=== PATIENT | female | born 1930 | race Caucasian/White ===

== ENCOUNTER 2017-01-31 18:10 | Inpatient (IN) | payer OTHER ==
[~2017-01-31] VITALS: Ht 154.9 cm; Wt 59.8 kg
[~2017-01-31 18:10] MED LIST: ACET-1311 PO; ALL300 PO; AMT24 PO; CLTP PO; DOCU1TAB6 PO; FERR325T5 PO; FLV1 PO; GLIP2.5T11 PO; LEVO75TA PO; METFTAB PO; MULT-513 PO; OMEG10007 PO; PRLSR20 PO; ROSU5TAB PO; TRIA1SPR4; [UNRECOGNIZED DRUG - OTHER] OPB
--- NOTE | 2017-01-31 18:44 | EMERGENCY ROOM VISIT NOTE ---
History Report prepared by Teddy: Ad Kwok Under the Supervision of: Dr. Juan Carlos Gonzalez D.O. First contact with patient: 18:27 Chief Complaint: REFERRED BY DOCTOR Stated Complaint: LIVER TROUBLE- SENT BY History of Present Illness The patient is an 86 year old female who was referred to the Emergency Room after having elevated LFTs earlier today. The patient was seeing Dr. Anne today when the elevated LFTs were found. She was started on Cipro and Flagyl today prior to the testing for possible diverticulitis. The patient has been experiencing left lower quadrant abdominal pain, abnormal bowel movements, and dark / brown urine for the past several weeks. She denies chest pain, shortness of breath, or pain with urination. She has appeared lethargic to her son. The patient has a history of bladder cancer in her 20s. She has a history of dementia. Source of History: patient, family (son) Onset: earlier today Position: other (global) Quality: other (elevated LFTs) Timing: other (acute) Associated Symptoms: + abdominal pain, + urinary symptoms (discolored, but no pain), No SOB, No chest pain Review of Systems See HPI for pertinent positives & negatives. A total of 10 systems reviewed and were otherwise negative. Past Medical & Surgical Medical Problems: (1) Acoustic neuroma (2) BENIGN HYPERTENSION (3) Cholangitis (4) DIAB ABIMBOLA WO COMP TYPE II OR NOS/NOT UNCONTROLLED (5) Diverticulitis (6) ESOPHAGEAL REFLUX (7) HYPERLIPIDEMIA NEC/NOS (8) HYPOTHYROIDISM NOS (9) MALIG KIAN BLADDER NOS (10) PURE HYPERCHOLESTEROLEM Family History Patient reports no known family medical history. Social History Smoking Status: Former Smoker Alcohol Use: none Drug Use: none Marital Status: Housing Status: lives with family Occupation Status: retired Current/Historical Medications Scheduled Allopurinol (Allopurinol), 300 MG PO QAM Atorvastatin (Lipitor), 80 MG PO DAILY Calcium/Vitamin D (Caltrate 600 Plus *), 1 TAB PO QPM Ciprofloxacin (Ciprofloxacin HCl), 500 MG PO Q12 Ferrous Sulfate (Ferrous Sulfate), 325 MG PO QAM Fish Oil ([place]-3), 1,000 MG PO QAM Folic Acid (Folic Acid), 1 MG PO QAM Levothyroxine Sodium (Synthroid), 75 MCG PO QAM Metformin Ext Rel (Glucophage Ext Rel), 500 MG PO BID Metoprolol Succinate (Metoprolol Succinate ER), 25 MG PO DAILY Metronidazole (Flagyl), 500 MG PO TID Multivitamins/Minerals (Mvi With Minerals), 1 TAB PO QAM Omeprazole (Prilosec), 20 MG PO BID Potassium Ext Rel (Klor-Con), 20 MEQ PO DAILY Scheduled PRN Acetaminophen (Tylenol), 650 MG PO BID PRN for Pain Allergies Coded Allergies: Mirtazapine (Verified Allergy, Mild, Increased Anxiety, 01/31/17) Oxycodone (Verified Adverse Reaction, Mild, GI SYMPTOMS, 01/31/17) Morphine (Verified Adverse Reaction, Unknown, NAUSEA, 01/31/17) Physical Exam Vital Signs Date Time Temp Pulse Resp B/P Pulse Ox O2 Delivery O2 Flow Rate FiO2 01/31/17 22:10 71 22 01/31/17 21:10 71 24 01/31/17 19:38 73 01/31/17 19:25 142/70 01/31/17 19:22 77 18 142/70 92 Room Air 01/31/17 18:19 36.4 91 18 106/63 96 Room Air Physical Exam GENERAL: Patient is awake, alert, and in no acute distress. Patient is resting comfortably and showing no signs of anxiety EYES: The conjunctivae are clear. The pupils are equal round and reactive to light. There appeared to be proptosis of the left eye but no pain with extraocular muscle testing. EARS, NOSE, MOUTH AND THROAT: The nose is without any evidence of any deformity. Mucous membranes are moist tongue is midline NECK: The neck is nontender and supple. RESPIRATORY: Normal respiratory effort is noted there is no evidence of wheezing rhonchi or rales CARDIOVASCULAR: Regular rate and rhythm noted there no murmurs rubs or gallops normal S1 normal S2 GASTROINTESTINAL: The abdomen moderately distended, diffusely tender, no specific guarding or rigidity noted. MUSCULOSKELETAL/EXTREMITIES: There is no evidence of gross deformity full range of motion is noted in the hips and shoulders SKIN: Cool and dry. Pedal edema was noted bilaterally. NEUROLOGIC: Patient is awake alert and oriented to person place and situation, strength was symmetric. Medical Decision & Procedures ER Provider Diagnostic Interpretation: Radiology results as stated below per my review and radiologist interpretation: CHEST ONE VIEW PORTABLE HISTORY: Generalized abdominal pain COMPARISON: Chest 12/31/2012. FINDINGS: The lungs are clear. Cardiac silhouette is normal in size. No pleural effusions. No pneumothorax. IMPRESSION: No acute process. Electronically signed by: Alan Hernandez M.D. 01/31/2017 7:18 PM Dictated Date/Time: 01/31/2017 7:17 PM ABDOMEN AND PELVIS CT WITH IV CONTRAST CT DOSE: 279.30 mGy.cm HISTORY: painless jaundice TECHNIQUE: Multiaxial CT images of the abdomen and pelvis were performed following the use of intravenous contrast. COMPARISON STUDY: Abdomen and pelvis CT 12/25/2012. FINDINGS: The lung bases are clear. No pneumoperitoneum. No pneumatosis. Moderate thickening of the stomach. An 8 mm hypodense lesion within the pancreatic head. Normal caliber common bile duct. The gallbladder appears surgically absent. No hepatic or splenic masses. Stable indeterminate 1.9 cm left adrenal nodule. Normal right adrenal gland. Bilateral renal hypodense lesions favor cysts. Bilateral nephrolithiasis. No hydronephrosis. The uterus is surgically absent. Left retroaortic renal vein. Question mild fat stranding/edema surrounding the extra hepatic bile ducts. Increase in size of a portacaval lymph node which measures 9 mm in short axis diameter, previous measuring 4 mm. Mild fat stranding adjacent to a single proximal sigmoid diverticulum. This is consistent with acute diverticulitis. This is best in image 329. No perforation or abscess. No evidence for bowel obstruction. IMPRESSION: 1. There are suggestion of mild fat stranding surrounding the extra hepatic bile ducts. However, the bile ducts are normal in caliber. This is nonspecific but could represent an ascending cholangitis. Clinical correlation recommended. 2. Mild acute sigmoid diverticulitis. No perforation or abscess. 3. Cholecystectomy. 4. Bilateral nephrolithiasis. No hydronephrosis. 5. Moderate thickening of the stomach. This could be due to underdistention. 6. An 8 mm hypodense lesion within the pancreatic head. 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 Electronically signed by: Alan Hernandez M.D. 01/31/2017 8:11 PM Dictated Date/Time: 01/31/2017 7:59 PM Laboratory Results Test 01/31/17 19:00 01/31/17 19:24 01/31/17 20:06 Immature Granulocyte % (Auto) 0.2 % White Blood Count 11.06 K/uL (4.8-10.8) Red Blood Count 3.72 M/uL (4.2-5.4) Hemoglobin 12.1 g/dL (12.0-16.0) Hematocrit 35.1 % (37-47) Mean Corpuscular Volume 94.4 fL (80-100) Mean Corpuscular Hemoglobin 32.5 pg (25-34) Mean Corpuscular Hemoglobin Concent 34.5 g/dl (32-36) Platelet Count 354 K/uL (130-400) Mean Platelet Volume 11.1 fL (7.4-10.4) Neutrophils (%) (Auto) 74.4 % Lymphocytes (%) (Auto) 14.6 % Monocytes (%) (Auto) 9.0 % Eosinophils (%) (Auto) 1.2 % Basophils (%) (Auto) 0.6 % Neutrophils # (Auto) 8.23 K/uL (1.4-6.5) Lymphocytes # (Auto) 1.62 K/uL (1.2-3.4) Monocytes # (Auto) 0.99 K/uL (0.11-0.59) Eosinophils # (Auto) 0.13 K/uL (0-0.5) Basophils # (Auto) 0.07 K/uL (0-0.2) Immature Granulocyte # (Auto) 0.02 K/uL (0.00-0.02) Creatine Kinase MB 1.2 ng/ml (0.5-3.6) Creatine Kinase MB Ratio (0-3.0) Troponin I < 0.015 ng/ml (0-0.045) Amylase Level 128 U/L (25-115) Lipase 1347 U/L (73-393) Bedside Hemoglobin 12.2 g/dl (12.0-16.0) Bedside Hematocrit 36 % (37-47) Bedside Sodium 139 mEq/L (135-144) Bedside Potassium 4.4 mEq/L (3.3-5.0) Bedside Chloride 104 mEq/L (101-112) Bedside Total CO2 23 mEq/l (24-31) Bedside Blood Urea Nitrogen 18 mg/dl (7-18) Bedside Creatinine 0.9 mg/dl (0.6-1.3) Bedside Glucose (other) 115 mg/dl (70-99) Bedside Ionized Calcium (Eliseo) 1.22 mmol/l (1.12-1.32) Prothrombin Time 11.7 SECONDS (9.0-12.0) Prothromb Time International Ratio 1.1 (0.9-1.1) Activated Partial Thromboplast Time 31.7 SECONDS (21.0-31.0) Partial Thromboplastin Ratio 1.2 Direct Bilirubin 2.3 mg/dl (0-0.2) Total Creatine Kinase 127 U/L (26-192) Laboratory results per my review. Medications Administered Medications (Trade) Dose Ordered Sig/Faith Route Start Time Stop Time Status Last Admin Dose Admin Piperacillin Sod/ Tazobactam Sod (Zosyn Iv) 3.375 gm NOW STAT IV 01/31/17 20:22 01/31/17 20:23 DC 01/31/17 20:34 3.375 GM ECG Indication: abdominal pain Rate (beats per minute): 74 Rhythm: normal sinus Findings: no acute ischemic change, no ectopy Comparison ECG Date: 28 January 2014 Change: no significant change ED Course 1834: The patient was evaluated in room A11b. A complete history and physical examination were performed. 2031: Zosyn 3.375 gm IV. 2042: Discussed the case with Dr. Benito, [facility]. The patient will be evaluated. Medical Decision Prior records/ancillary studies reviewed. Triage Nursing notes reviewed. Additional history obtained from son. The patient's history was concerning for abdominal pain. Differential diagnosis: Etiologies such as appendicitis, diverticulitis, PUD, biliary pathology, UTI, pancreatitis, obstruction, mesenteric ischemia, aortic pathology, infections, inflammatory bowel disease, renal colic, as well as others were entertained. The patient is an 86-year-old female who presented to the emergency department for evaluation of abdominal pain. The patient was seen by her primary care physician and sent for laboratory studies. The laboratory studies were abnormal she was sent to the emergency department. The patient was treated with IV antibiotics in the emergency department. This was for presumed ascending cholangitis. She was also found have signs of cholecystitis and a possible pancreatic mass. I discussed the patient's laboratory and radiographic studies with her and her family members. She was also discussed with the on-call [facility]ist. They've agreed to evaluate the patient in the emergency department for further management and disposition. Consults Time Called: 2034 Consulting Physician: [facility] Returned Call: [phone]: Discussed the case with [facility]. The patient will be evaluated. Impression Primary Impression: Jaundice Additional Impressions: Ascending cholangitis Pancreatic mass Abnormal liver function tests Diverticulitis Scribe Attestation The scribe's documentation has been prepared under my direction and personally reviewed by me in its entirety. I confirm that the note above accurately reflects all work, treatment, procedures, and medical decision making performed by me. Departure Information Dispostion Being Evaluated By Hospitalist Referrals Price Anne III, M.D. (PCP) Patient Instructions [facility] Problem Qualifiers
[2017-01-31] MEDS ORDERED: OPTIRAY 320 IV PRN (19:00)
--- NOTE | 2017-01-31 19:21 | DIAGNOSTIC IMAGING REPORT ---
CHEST ONE VIEW PORTABLE HISTORY: Generalized abdominal pain COMPARISON: Chest 12/31/2012. FINDINGS: The lungs are clear. Cardiac silhouette is normal in size. No pleural effusions. No pneumothorax. IMPRESSION: No acute process. Electronically signed by: lAan Hernandez M.D. 01/31/2017 7:18 PM Dictated Date/Time: 01/31/2017 7:17 PM
[2017-01-31 19:28] LABS: BASO % 0.6 %; BASO ABS # 0.07 K/uL (0-0.2); COMPLETE YES; EOS % 1.2 %; HEMATOCRIT 35.1 % (37-47); IG% 0.2 %; LYMPH % 14.6 %; LYMPH ABS # 1.62 K/uL (1.2-3.4); MEAN CELL VOLUME 94.4 fL (80-100); MEAN CORPUSCULAR HEMOGLOBIN 32.5 pg (25-34); MEAN CORPUSCULAR HGB CONC 34.5 g/dl (32-36); MEAN PLATELET VOLUME 11.1 fL (7.4-10.4); NEUT % 74.4 %; PLATELET COUNT 354 K/uL (130-400); RED BLOOD COUNT 3.72 M/uL (4.2-5.4); WHITE BLOOD COUNT 11.06 K/uL (4.8-10.8)
[2017-01-31 19:37] LABS: ISTAT CREATININE 0.9 mg/dl (0.6-1.3); ISTAT HEMOGLOBIN 12.2 g/dl (12.0-16.0); ISTAT IONIZED CALCIUM 1.22 mmol/l (1.12-1.32)
[2017-01-31 19:56] LABS: ALKALINE PHOSPHATASE 999 U/L (45-117); ALT/SGPT 497 U/L (12-78); AMYLASE 128 U/L (25-115); BLOOD UREA NITROGEN 14 mg/dl (7-18); BUN/CREATININE RATIO 12.1 (10-20); CALCIUM 9.3 mg/dl (8.5-10.1); CARBON DIOXIDE 22 mmol/L (21-32); CHLORIDE 107 mmol/L (98-107); GLUCOSE 112 mg/dl (70-99); SODIUM 138 mmol/L (136-145)
--- NOTE | 2017-01-31 20:14 | DIAGNOSTIC IMAGING REPORT ---
ABDOMEN AND PELVIS CT WITH IV CONTRAST CT DOSE: 279.30 mGy.cm HISTORY: painless jaundice TECHNIQUE: Multiaxial CT images of the abdomen and pelvis were performed following the use of intravenous contrast. COMPARISON STUDY: Abdomen and pelvis CT 12/25/2012. FINDINGS: The lung bases are clear. No pneumoperitoneum. No pneumatosis. Moderate thickening of the stomach. An 8 mm hypodense lesion within the pancreatic head. Normal caliber common bile duct. The gallbladder appears surgically absent. No hepatic or splenic masses. Stable indeterminate 1.9 cm left adrenal nodule. Normal right adrenal gland. Bilateral renal hypodense lesions favor cysts. Bilateral nephrolithiasis. No hydronephrosis. The uterus is surgically absent. Left retroaortic renal vein. Question mild fat stranding/edema surrounding the extra hepatic bile ducts. Increase in size of a portacaval lymph node which measures 9 mm in short axis diameter, previous measuring 4 mm. Mild fat stranding adjacent to a single proximal sigmoid diverticulum. This is consistent with acute diverticulitis. This is best in image 329. No perforation or abscess. No evidence for bowel obstruction. IMPRESSION: 1. There are suggestion of mild fat stranding surrounding the extra hepatic bile ducts. However, the bile ducts are normal in caliber. This is nonspecific but could represent an ascending cholangitis. Clinical correlation recommended. 2. Mild acute sigmoid diverticulitis. No perforation or abscess. 3. Cholecystectomy. 4. Bilateral nephrolithiasis. No hydronephrosis. 5. Moderate thickening of the stomach. This could be due to underdistention. 6. An 8 mm hypodense lesion within the pancreatic head. 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 Electronically signed by: Alan Hernandez M.D. 01/31/2017 8:11 PM Dictated Date/Time: 01/31/2017 7:59 PM
[2017-01-31] MEDS ORDERED: PIPERACILLIN/TAZOBACTAM 3.375 GM/100ML D5W IV STA (20:22)
[2017-01-31 20:26] LABS: INR 1.1 (0.9-1.1); PARTIAL THROMBOPLASTIN RATIO 1.2; PROTHROMBIN TIME (PATIENT) 11.7 SECONDS (9.0-12.0)
[2017-01-31 20:30] LABS: POTASSIUM 3.9 mmol/L (3.5-5.1)
[2017-01-31] MEDS ORDERED: TPRSR/25 PO (20:48)
[2017-01-31] MEDS ORDERED: LPT40 PO (20:48)
[2017-01-31] MEDS ORDERED: POTA20TA16 PO (20:48)
[2017-01-31] MEDS ORDERED: CYM20 PO (20:48)
[2017-01-31] MEDS ORDERED: ALL300 PO (20:52)
[2017-01-31] MEDS ORDERED: CLR10 PO (20:52)
[2017-01-31] MEDS ORDERED: METR-163 PO (20:56)
[2017-01-31] MEDS ORDERED: CPR/500 PO (20:56)
[2017-01-31] MEDS ORDERED: ATOR-26 PO (22:06)
[2017-01-31] MEDS ORDERED: ACETAMINOPHEN 325 MG TAB PO PRN (22:15)
[2017-01-31] MEDS ORDERED: GLUCAGON FOR INJ 1 MG VIAL SQ PRN (22:30)
[2017-01-31] MEDS ORDERED: DEXTROSE 50% 50 ML SYR IV PRN (22:30)
[2017-01-31] MEDS ORDERED: GLUCOSE 40% GEL 15 GM TUBE PO PRN (22:30)
[2017-01-31] MEDS ORDERED: GLUCOSE 10 TABS/TUBE PO PRN (22:30)
--- NOTE | 2017-01-31 23:01 | History and Physical ---
History & Physical Date & Time of Service: Jan 31, 2017 at 22:24 Chief Complaint: Liver Trouble- Sent By Primary Care Physician: Price Anne III, M.D. History of Present Illness Source: patient This is an 86 y/o female with PMHx of well-controlled DM2, CKD stage 3, Hypothyroidism, HTN, Dyslipidemia and other problems as outlined below who presents to the ED from Dr. Anne's office due to abnormal labs. Pt reports that for the past 2 months she has been experiencing constipation with mild generalized abd pain. Over the past month, the abdominal pain has become more constant and localized in the LLQ. She also noticed that her stool is a human resources leader brown and her urine is dark. She has not had a good appetite but has been tolerating food when she eats. Pt was seen by PCP (Dr. Anne) today. He started course of Cipro/Flagyl for suspected diverticulitis which patient took one dose of. Bloodwork was later found to be abnormal and patient was directed to the emergency room for further evaluation. Pt denies fever/chills, diaphoresis, chest pain, SOB, N/V, hematochezia, melena, bladder issues, LE edema ,calf pain , lightheadedness/dizziness. In the ED, vitals are stable. Pt is afebrile with leukocytosis >11k. Total bili 3.3. Direct bili 2.3. AST 613. ALT 497. Alk Phos 999. Lipase 1347. CT abd/pelvis + suggestive of ascending cholangitis and mild sigmoid diverticulitis. Pt is stable and will be admitted for further evaluation and treatment. Past Medical/Surgical History Medical Problems: (1) Acoustic neuroma Status: Chronic (2) BENIGN HYPERTENSION Status: Chronic (3) DIAB ABIMBOLA WO COMP TYPE II OR NOS/NOT UNCONTROLLED Status: Chronic (4) ESOPHAGEAL REFLUX Status: Chronic (5) HYPERLIPIDEMIA NEC/NOS Status: Chronic (6) HYPOTHYROIDISM NOS Status: Chronic (7) MALIG KIAN BLADDER NOS Status: Resolved (8) PURE HYPERCHOLESTEROLEM Status: Chronic Family History Patient reports no known family medical history. Social History Smoking Status: Former Smoker (35 pack year history; quit in 1970s) Alcohol Use: none Drug Use: none Marital Status: ( 3 months ago ) Housing status: lives with family (lives with son) Occupational Status: retired Immunizations History of Influenza Vaccine: Yes Influenza Vaccine Date: Oct 14, 2012 History of Tetanus Vaccine?: No Tetanus Immunization Date: Jul 19, 2007 History of Pneumococcal: No History of Hepatitis B Vaccine: No Multi-Drug Resistant Organisms History of MDRO: No Allergies Coded Allergies: Mirtazapine (Verified Allergy, Mild, Increased Anxiety, 01/31/17) Oxycodone (Verified Adverse Reaction, Mild, GI SYMPTOMS, 01/31/17) Morphine (Verified Adverse Reaction, Unknown, NAUSEA, 01/31/17) Home Medications Scheduled Allopurinol (Allopurinol), 300 MG PO QAM Atorvastatin (Lipitor), 80 MG PO DAILY Calcium/Vitamin D (Caltrate 600 Plus *), 1 TAB PO QPM Ciprofloxacin (Ciprofloxacin HCl), 500 MG PO Q12 Ferrous Sulfate (Ferrous Sulfate), 325 MG PO QAM Fish Oil ([place]-3), 1,000 MG PO QAM Folic Acid (Folic Acid), 1 MG PO QAM Levothyroxine Sodium (Synthroid), 75 MCG PO QAM Metformin Ext Rel (Glucophage Ext Rel), 500 MG PO BID Metoprolol Succinate (Metoprolol Succinate ER), 25 MG PO DAILY Metronidazole (Flagyl), 500 MG PO TID Multivitamins/Minerals (Mvi With Minerals), 1 TAB PO QAM Omeprazole (Prilosec), 20 MG PO BID Potassium Ext Rel (Klor-Con), 20 MEQ PO DAILY Scheduled PRN Acetaminophen (Tylenol), 650 MG PO BID PRN for Pain Review of Systems Constitutional: No chills, No fatigue, No fever, No sweats, No weakness Eyes: No worsening of vision ENT: No hearing loss Respiratory: No cough, No shortness of breath Cardiovascular: No chest pain, No claudication, No edema Abdomen: + constipation, + pain, No GI bleeding, No diarrhea, No nausea Musculoskeletal: No calf pain, No swelling Genitourinary - Female: + urinary frequency, No dysuria Neurologic: No weakness Psychiatric: No depression symptoms Endocrine: No fatigue Hematologic / Lymphatic: No abnormal bleeding/bruising Integumentary: No new/changing skin lesions Physical Exam Vital Signs Date Time Temp Pulse Resp B/P Pulse Ox O2 Delivery O2 Flow Rate FiO2 01/31/17 19:38 73 01/31/17 19:22 77 18 142/70 92 Room Air 01/31/17 18:19 36.4 91 18 106/63 96 Room Air General Appearance: WD/WN, no apparent distress, + pertinent finding (Pt is laying in bed with son at bedside ) Head: normocephalic, atraumatic Eyes: normal inspection ENT: hearing grossly normal Neck: supple Respiratory/Chest: chest non-tender, lungs clear, normal breath sounds, no respiratory distress Cardiovascular: regular rate, rhythm, no edema, no murmur Abdomen/GI: normal bowel sounds, soft, + tenderness (+LLQ; +mild RUQ ) Back: normal inspection Extremities/Musculoskelatal: normal inspection, no calf tenderness, no pedal edema Neurologic/Psych: alert, normal mood/affect, oriented x 3 Skin: warm/dry, + jaundice Diagnostics Laboratory Results Results Past 24 Hours Test 01/31/17 19:00 01/31/17 19:24 01/31/17 20:06 Range/Units White Blood Count 11.06 4.8-10.8 K/uL Red Blood Count 3.72 4.2-5.4 M/uL Hemoglobin 12.1 12.0-16.0 g/dL Hematocrit 35.1 37-47 % Mean Corpuscular Volume 94.4 80-100 fL Mean Corpuscular Hemoglobin 32.5 25-34 pg Mean Corpuscular Hemoglobin Concent 34.5 32-36 g/dl Platelet Count 354 130-400 K/uL Mean Platelet Volume 11.1 7.4-10.4 fL Neutrophils (%) (Auto) 74.4 % Lymphocytes (%) (Auto) 14.6 % Monocytes (%) (Auto) 9.0 % Eosinophils (%) (Auto) 1.2 % Basophils (%) (Auto) 0.6 % Neutrophils # (Auto) 8.23 1.4-6.5 K/uL Lymphocytes # (Auto) 1.62 1.2-3.4 K/uL Monocytes # (Auto) 0.99 0.11-0.59 K/uL Eosinophils # (Auto) 0.13 0-0.5 K/uL Basophils # (Auto) 0.07 0-0.2 K/uL RDW Standard Deviation 52.9 36.4-46.3 fL RDW Coefficient of Variation 15.5 11.5-14.5 % Immature Granulocyte % (Auto) 0.2 % Immature Granulocyte # (Auto) 0.02 0.00-0.02 K/uL Sodium Level 138 136-145 mmol/L Potassium Level 3.9 3.5-5.1 mmol/L Chloride Level 107 98-107 mmol/L Carbon Dioxide Level 22 21-32 mmol/L Anion Gap 9.0 18.0 16-25 mmol/L Blood Urea Nitrogen 14 7-18 mg/dl Creatinine 1.20 0.60-1.20 mg/dl Est Creatinine Clear Calc Drug Dose 27.0 ml/min Estimated GFR () 48.1 Estimated GFR (Non- 41.5 BUN/Creatinine Ratio 12.1 10-20 Random Glucose 112 70-99 mg/dl Calcium Level 9.3 8.5-10.1 mg/dl Total Bilirubin 3.3 0.2-1 mg/dl Direct Bilirubin 2.3 0-0.2 mg/dl Aspartate Amino Transf (AST/SGOT) 613 15-37 U/L Alanine Aminotransferase (ALT/SGPT) 497 12-78 U/L Alkaline Phosphatase 999 45-117 U/L Total Creatine Kinase 127 26-192 U/L Creatine Kinase MB 1.2 0.5-3.6 ng/ml Creatine Kinase MB Ratio 0-3.0 Troponin I < 0.015 0-0.045 ng/ml Total Protein 7.8 6.4-8.2 gm/dl Albumin 2.5 3.4-5.0 gm/dl Amylase Level 128 25-115 U/L Lipase 1347 73-393 U/L Bedside Hemoglobin 12.2 12.0-16.0 g/dl Bedside Hematocrit 36 37-47 % Bedside Sodium 139 135-144 mEq/L Bedside Potassium 4.4 3.3-5.0 mEq/L Bedside Chloride 104 101-112 mEq/L Bedside Total CO2 23 24-31 mEq/l Bedside Blood Urea Nitrogen 18 7-18 mg/dl Bedside Creatinine 0.9 0.6-1.3 mg/dl Bedside Glucose (other) 115 70-99 mg/dl Bedside Ionized Calcium (Eliseo) 1.22 1.12-1.32 mmol/l Prothrombin Time 11.7 9.0-12.0 SECONDS Prothromb Time International Ratio 1.1 0.9-1.1 Activated Partial Thromboplast Time 31.7 21.0-31.0 SECONDS Partial Thromboplastin Ratio 1.2 Diagnostic Radiology CXR IMPRESSION: No acute process. CT ABD/PELVIS IMPRESSION: 1. There are suggestion of mild fat stranding surrounding the extra hepatic bile ducts. However, the bile ducts are normal in caliber. This is nonspecific but could represent an ascending cholangitis. Clinical correlation recommended. 2. Mild acute sigmoid diverticulitis. No perforation or abscess. 3. Cholecystectomy. 4. Bilateral nephrolithiasis. No hydronephrosis. 5. Moderate thickening of the stomach. This could be due to underdistention. 6. An 8 mm hypodense lesion within the pancreatic head. 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 EKG EKG: NSR at 74 bpm with no acute ischemic changes; no change when compared to EKG from 01/28/14 Impression Assessment and Plan ABDOMINAL PAIN SECONDARY TO CHOLANGITIS VS. PANCREATITIS -admit to med/surg -pt is afebrile with leukocytosis >11k -CT abd/pelvis + evidence for ascending cholangitis -AST 613, ALT 497, direct bili 2.3, lipase 1347 -trend LFTs -start IVF and Zosyn -keep NPO except meds and ice chips -consult GI, Dr. Lester-pending input -monitor ACUTE DIVERTICULITIS -CT abd/pelvis + mild sigmoid diverticulitis. No evidence of abscess or perforation. -start IVF and Zosyn -keep NPO for now -monitor CKD STAGE 3 -creatinine at baseline around 1.0 -cont IVF -monitor with daily prp and avoid nephrotoxic agents when able WELL-CONTROLLED DM 2 -recent A1C 5.8 -hold metformin -start ISS -monitor BSG AC HS HYPOTHYROIDISM -cont levothyroxine HTN -BP stable -cont metoprolol -monitor DYSLIPIDEMIA -cont high-dose statin DVT PROPHYLAXIS -subq heparin CODE STATUS -DNR per discussion with patient upon admission DISPO Pt seen in collaboration with Dr. Patel. Please see her addendum for further details. Thanks! -Of note: patient seen in collaboration with Dr. Valentin russo tomorrow AM. I have seen and examined the patient and have discussed the case with the provider above. She is not ill-appearing, and seems to have had this LLQ pain now for two months. She recently buried her . I agree with the assessment and plan as stated. Jorge, DO Level of Care Med/Surg Resuscitation Status DO NOT RESUSCITATE VTE Prophylaxis VTE Risk Assessment Done? Y/N: Yes Risk Level: Moderate Given or contraindicated: Unfractionated heparin SQ
[2017-01-31 23:42] VITALS: BP 122/76; PULSE 70; TEMP 36.8; O2SAT 95; Ht 154.9 cm; Wt 59.8 kg
[2017-01-31] MEDS ORDERED: PIPERACILL/TAZOBAC CONSULT ACTIVE PRN (23:45)
[2017-01-31] MEDS: SODIUM CHLORIDE 0.9% 1000ML 1,000 ML IV SCH (23:45)
[2017-02-01] VITALS (7 sets, daily range): BP systolic 101–159; BP diastolic 65–88; PULSE 58–81; TEMP 36.6–36.9; O2SAT 91–97
[2017-02-01] MEDS: PIPERACILL/TAZOBAC IV 3.375 GM in DEXTROSE 5% 100ML 100 ML IV SCH ×3 (02:00→17:41)
[2017-02-01 06:06] LABS: HEMATOCRIT 33.9 % (37-47); MEAN CELL VOLUME 94.2 fL (80-100); MEAN CORPUSCULAR HEMOGLOBIN 31.7 pg (25-34); MEAN CORPUSCULAR HGB CONC 33.6 g/dl (32-36); MEAN PLATELET VOLUME 11.2 fL (7.4-10.4); PLATELET COUNT 331 K/uL (130-400); WHITE BLOOD COUNT 9.34 K/uL (4.8-10.8)
[2017-02-01] MEDS ORDERED: INSULIN ASPART 100 UNITS/ML 3 ML PEN SC SCH (06:30)
[2017-02-01] MEDS: LEVOTHYROXINE 75 MCG TAB PO SCH (06:46)
[2017-02-01 06:47] LABS: BUN/CREATININE RATIO 11.7 (10-20); CALCIUM 8.9 mg/dl (8.5-10.1); POTASSIUM 3.5 mmol/L (3.5-5.1)
[2017-02-01] MEDS: HEPARIN SOD 5000 UNIT/0.5 ML CARP SQ SCH ×3 (06:49→21:12)
[2017-02-01 06:52] LABS: ALB/GLOB RATIO 0.5 (0.9-2)
[2017-02-01] MEDS: PANTOprazole SOD 40 MG TAB PO SCH ×2 (07:44→21:12)
[2017-02-01] MEDS: OMEGA-3 (PURIFIED FISH OIL) 1 GM CAP PO SCH (07:44)
[2017-02-01] MEDS: FERROUS SULFATE 325 MG TAB PO SCH (07:44)
[2017-02-01] MEDS: ALLOPURINOL 300 MG TAB PO SCH (07:44)
[2017-02-01] MEDS: METOPROLOL SUCC 25MG EXT REL TAB PO SCH (07:45)
[2017-02-01] MEDS: CEROVITE ADV FORMULA TAB PO SCH (07:45)
[2017-02-01] MEDS: POTASSIUM CHLORIDE 20 MEQ TABCR PO SCH (07:45)
[2017-02-01] MEDS ORDERED: NURSING VERBAL MED ORDER ONE ×2 (07:45→18:30)
[2017-02-01] MEDS ORDERED: PNEUMOCOCCAL POLYSACCHARIDES 25 MCG/0.5 ML VIAL/SYR IM. ONE (08:00)
[2017-02-01] MEDS ORDERED: PNEUMOCOCCAL ADMINISTRATION CHARGE ONE (08:00)
[2017-02-01] MEDS ORDERED: ATORVASTATIN 40 MG TAB PO SCH (09:00)
--- NOTE | 2017-02-01 10:05 | Progress Note ---
Internal Med Progress Note Date of Service: Feb 01, 2017. Provider Documentation: SUBJECTIVE: Patient does have abdominal pain- left lower quadrant more than other quadrants No nausea, vomiting, but anorexia, loss of weight. Denies any fever, chills, specifically right sided abdominal pain. Mental status- at baseline OBJECTIVE: Vital Signs-as noted below Exam: General-AAOX2, no distress Eyes-Icterus + Asymmetric eye size Neck-No JVD Lungs-AEBE, no wheezing, rales Heart-S1, S2 normal, no murmurs Abdomen-Soft, tenderness in LLQ, RUQ, No rigidity, BS present Extremities-No edema Neuro-Grossly no focal deficits Lab data as noted below. Diagnostic Radiology CXR IMPRESSION: No acute process. CT ABD/PELVIS IMPRESSION: 1. There are suggestion of mild fat stranding surrounding the extra hepatic bile ducts. However, the bile ducts are normal in caliber. This is nonspecific but could represent an ascending cholangitis. Clinical correlation recommended. 2. Mild acute sigmoid diverticulitis. No perforation or abscess. 3. Cholecystectomy. 4. Bilateral nephrolithiasis. No hydronephrosis. 5. Moderate thickening of the stomach. This could be due to underdistention. 6. An 8 mm hypodense lesion within the pancreatic head. 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 EKG EKG: NSR at 74 bpm with no acute ischemic changes; no change when compared to EKG from 01/28/14 ASSESSMENT & PLAN: Assessment and Plan : OBSTRUCTIVE JAUNDICE: Patient presented to ED from PCP office for abnormal labs- obstructive jaundice patter- AST 613, ALT 497, TB 3.3, ALP 999, Direct bilirubin 2.3. Has hx of 2-4 months of abdominal pain, vaguely described as generalized, son who lives with her does not know about it, weight loss, anorexia, on and off nausea. -Afebrile, leucocytosis + mild, LFTs trending down -D/D Considered : Cholangitis as CT abd/pelvis - ? ascending cholangitis, however, no fever, RUQ tenderness but denies pain. No bile duct dilation noted. Need to rule out neoplasm as well -ERCP planned for today per GI discussion -NPO except meds/chips -IVF, IV Zosyn -GI on board ACUTE LEFT SIGMOID (MILD) DIVERTICULITIS -CT abd/pelvis + mild sigmoid diverticulitis. No evidence of abscess or perforation. -Afebrile, leucocytosis + mild -IVF and IV Zosyn -NPO with meds/chips CKD STAGE 3 -creatinine at baseline around 1.0 -cont IVF -monitor and avoid nephrotoxic agents when able WELL-CONTROLLED DM 2 -recent A1C 5.8 -hold metformin -start ISS -monitor BSG AC HS HYPOTHYROIDISM -cont levothyroxine HTN -BP stable -cont metoprolol -monitor DYSLIPIDEMIA -cont high-dose statin DVT PROPHYLAXIS -subq heparin CODE STATUS -DNR per discussion with patient upon admission DISPO Medical mx in progress Vital Signs: Date Time Temp Pulse Resp B/P Pulse Ox O2 Delivery O2 Flow Rate FiO2 02/01/17 08:11 36.8 58 16 116/67 96 Room Air 02/01/17 00:00 95 Room Air 01/31/17 23:42 36.8 70 16 122/76 95 Room Air 01/31/17 22:10 71 22 01/31/17 21:10 71 24 01/31/17 19:38 73 01/31/17 19:25 142/70 01/31/17 19:22 77 18 142/70 92 Room Air 01/31/17 18:19 36.4 91 18 106/63 96 Room Air Lab Results: Results Past 24 Hours Test 01/31/17 19:00 01/31/17 19:24 01/31/17 20:06 01/31/17 23:24 Range/Units White Blood Count 11.06 4.8-10.8 K/uL Red Blood Count 3.72 4.2-5.4 M/uL Hemoglobin 12.1 12.0-16.0 g/dL Hematocrit 35.1 37-47 % Mean Corpuscular Volume 94.4 80-100 fL Mean Corpuscular Hemoglobin 32.5 25-34 pg Mean Corpuscular Hemoglobin Concent 34.5 32-36 g/dl Platelet Count 354 130-400 K/uL Mean Platelet Volume 11.1 7.4-10.4 fL Neutrophils (%) (Auto) 74.4 % Lymphocytes (%) (Auto) 14.6 % Monocytes (%) (Auto) 9.0 % Eosinophils (%) (Auto) 1.2 % Basophils (%) (Auto) 0.6 % Neutrophils # (Auto) 8.23 1.4-6.5 K/uL Lymphocytes # (Auto) 1.62 1.2-3.4 K/uL Monocytes # (Auto) 0.99 0.11-0.59 K/uL Eosinophils # (Auto) 0.13 0-0.5 K/uL Basophils # (Auto) 0.07 0-0.2 K/uL RDW Standard Deviation 52.9 36.4-46.3 fL RDW Coefficient of Variation 15.5 11.5-14.5 % Immature Granulocyte % (Auto) 0.2 % Immature Granulocyte # (Auto) 0.02 0.00-0.02 K/uL Sodium Level 138 136-145 mmol/L Potassium Level 3.9 3.5-5.1 mmol/L Chloride Level 107 98-107 mmol/L Carbon Dioxide Level 22 21-32 mmol/L Anion Gap 9.0 18.0 16-25 mmol/L Blood Urea Nitrogen 14 7-18 mg/dl Creatinine 1.20 0.60-1.20 mg/dl Est Creatinine Clear Calc Drug Dose 27.0 ml/min Estimated GFR () 48.1 Estimated GFR (Non- 41.5 BUN/Creatinine Ratio 12.1 10-20 Random Glucose 112 70-99 mg/dl Calcium Level 9.3 8.5-10.1 mg/dl Total Bilirubin 3.3 0.2-1 mg/dl Direct Bilirubin 2.3 0-0.2 mg/dl Aspartate Amino Transf (AST/SGOT) 613 15-37 U/L Alanine Aminotransferase (ALT/SGPT) 497 12-78 U/L Alkaline Phosphatase 999 45-117 U/L Total Creatine Kinase 127 26-192 U/L Creatine Kinase MB 1.2 0.5-3.6 ng/ml Creatine Kinase MB Ratio 0-3.0 Troponin I < 0.015 0-0.045 ng/ml Total Protein 7.8 6.4-8.2 gm/dl Albumin 2.5 3.4-5.0 gm/dl Amylase Level 128 25-115 U/L Lipase 1347 73-393 U/L Bedside Hemoglobin 12.2 12.0-16.0 g/dl Bedside Hematocrit 36 37-47 % Bedside Sodium 139 135-144 mEq/L Bedside Potassium 4.4 3.3-5.0 mEq/L Bedside Chloride 104 101-112 mEq/L Bedside Total CO2 23 24-31 mEq/l Bedside Blood Urea Nitrogen 18 7-18 mg/dl Bedside Creatinine 0.9 0.6-1.3 mg/dl Bedside Glucose (other) 115 70-99 mg/dl Bedside Ionized Calcium (Eliseo) 1.22 1.12-1.32 mmol/l Prothrombin Time 11.7 9.0-12.0 SECONDS Prothromb Time International Ratio 1.1 0.9-1.1 Activated Partial Thromboplast Time 31.7 21.0-31.0 SECONDS Partial Thromboplastin Ratio 1.2 Bedside Glucose 85 70-90 mg/dl Test 02/01/17 05:09 02/01/17 06:04 Range/Units White Blood Count 9.34 4.8-10.8 K/uL Red Blood Count 3.60 4.2-5.4 M/uL Hemoglobin 11.4 12.0-16.0 g/dL Hematocrit 33.9 37-47 % Mean Corpuscular Volume 94.2 80-100 fL Mean Corpuscular Hemoglobin 31.7 25-34 pg Mean Corpuscular Hemoglobin Concent 33.6 32-36 g/dl RDW Standard Deviation 52.8 36.4-46.3 fL RDW Coefficient of Variation 15.3 11.5-14.5 % Platelet Count 331 130-400 K/uL Mean Platelet Volume 11.2 7.4-10.4 fL Sodium Level 140 136-145 mmol/L Potassium Level 3.5 3.5-5.1 mmol/L Chloride Level 107 98-107 mmol/L Carbon Dioxide Level 23 21-32 mmol/L Anion Gap 10.0 3-11 mmol/L Blood Urea Nitrogen 12 7-18 mg/dl Creatinine 1.00 0.60-1.20 mg/dl Est Creatinine Clear Calc Drug Dose 34.8 ml/min Estimated GFR () 59.9 Estimated GFR (Non- 51.7 BUN/Creatinine Ratio 11.7 10-20 Random Glucose 83 70-99 mg/dl Calcium Level 8.9 8.5-10.1 mg/dl Total Bilirubin 2.7 0.2-1 mg/dl Aspartate Amino Transf (AST/SGOT) 622 15-37 U/L Alanine Aminotransferase (ALT/SGPT) 460 12-78 U/L Alkaline Phosphatase 890 45-117 U/L Total Protein 7.2 6.4-8.2 gm/dl Albumin 2.3 3.4-5.0 gm/dl Globulin 4.9 2.5-4.0 gm/dl Albumin/Globulin Ratio 0.5 0.9-2 Bedside Glucose 80 70-90 mg/dl
[2017-02-01] MEDS ORDERED: INDOMETHACIN 50 MG SUPP PR SCH (10:15)
[2017-02-01] MEDS: INSULIN ASPART 100 UNITS/ML 3 ML PEN SC SCH ×3 (11:15→21:00)
[2017-02-01] MEDS: SODIUM CHLORIDE 0.9% 1000ML 1,000 ML IV SCH (11:48)
--- NOTE | 2017-02-01 12:32 | Gastrointestinal Consultation ---
Gastrointestinal Consultation Date of Consultation: Feb 01, 2017 Attending Physician: Erin Hanson Consulting Physician: Rell Boyd Reason for Consultation: Cholangitis, diverticulitis History of Present Illness Patient is a 86 year old female w PMHx of DM II, CKD III, hypothyroidism, HTN, dyslipidemia, GERD, hx of bladder ca who presented to ED referred by Dr. Anne due to leukocytosis and markedly elevated LFTs. She's been having abd pain mostly on LLQ for about 1 mnth. Stool had been area manager brown and urine darker in color. She also had lower appetite. Dr. Anne started her on Cipro/Flagyl for suspected diverticulitis, but then referred her when outpt labs were abnormal and concerning. Upon eval in ED, her labs showed WBC of 11, H/H 12/35, BMP unremarkable. LFTs elevated: Tbili 3.3, Dbili 2.3, AST 613, ALT 497, Alk phos 999, Lipase 1347. CXR normal. She had CT abd/pelvis which showed: 1. There are suggestion of mild fat stranding surrounding the extra hepatic bile ducts. However, the bile ducts are normal in caliber. This is nonspecific but could represent an ascending cholangitis. Clinical correlation recommended. 2. Mild acute sigmoid diverticulitis. No perforation or abscess. 3. Cholecystectomy. 4. Bilateral nephrolithiasis. No hydronephrosis. 5. Moderate thickening of the stomach. This could be due to underdistention. 6. An 8 mm hypodense lesion within the pancreatic head. 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 Past Medical/Surgical History Medical Problems: (1) Abnormal liver function tests Status: Acute (2) Ascending cholangitis Status: Acute (3) Jaundice Status: Acute (4) Pancreatic mass Status: Acute Past Medical History: See HPI above Past Surgical History: Tonsillectomy & Adenoidectomy Cholecystectomy Hemorrhoidectomy Hysterectomy R carpal tunnel Cataract surgery Family History Patient reports no known family medical history. Unrelated to current admission Social History Smoking Status: Former Smoker Alcohol Use: none Drug Use: none Marital Status: ( 3 months ago ) Housing Status: lives with family Occupation Status: retired Allergies Coded Allergies: Mirtazapine (Verified Allergy, Mild, Increased Anxiety, 01/31/17) Oxycodone (Verified Adverse Reaction, Mild, GI SYMPTOMS, 01/31/17) Morphine (Verified Adverse Reaction, Unknown, NAUSEA, 01/31/17) Current Medications Home Meds and Scripts Medications Dose Route/Sig Max Daily Dose Days Date Category Lipitor (Atorvastatin Calcium) 80 Mg Tab 80 Mg PO DAILY 01/31/17 Reported Ciprofloxacin HCl (Ciprofloxacin) 500 Mg Tab 500 Mg PO Q12 01/31/17 Reported Flagyl (Metronidazole) 500 Mg Tab 500 Mg PO TID 01/31/17 Reported Allopurinol 300 Mg Tab 300 Mg PO QAM 01/31/17 Reported Metoprolol Succinate ER (Metoprolol Succinate) 25 Mg Tabcr 25 Mg PO DAILY 01/31/17 Reported Klor-Con (Potassium Chloride) 20 Meq Tabcr 20 Meq PO DAILY 01/31/17 Reported Mvi With Minerals (Multivitamins/Minerals) Tab 1 Tab PO QAM 12/22/15 Reported Glucophage Ext Rel (Metformin HCl) 500 Mg Tab 500 Mg PO BID 12/22/15 Reported Tylenol (Acetaminophen) 325 Mg Tab 650 Mg PO BID PRN 12/24/14 Reported Folic Acid 1 Mg Tab 1 Mg PO QAM 12/24/14 Reported Prilosec (Omeprazole) 20 Mg Capcr 20 Mg PO BID 12/24/12 Reported Ferrous Sulfate 325 Mg Tab 325 Mg PO QAM 12/24/12 Reported Synthroid (Levothyroxine Sodium) 75 Mcg Tab 75 Mcg PO QAM 12/24/12 Reported [place]-3 (Fish Oil) 1 Ea Cap 1,000 Mg PO QAM 01/05/09 Reported Caltrate 600 Plus * (Calcium/Vitamin D) Tab 1 Tab PO QPM 01/05/09 Reported Review of Systems Constitutional: No chills, No fever Respiratory: No cough, No shortness of breath Cardiac: No chest pain Abdomen: + acolic stools, + constipation, + dark urine, + nausea, + pain, + see HPI, No GI bleeding, No vomiting Skin: No itch, No jaundice, No rash Physical Exam Date Time Temp Pulse Resp B/P Pulse Ox O2 Delivery O2 Flow Rate FiO2 02/01/17 08:11 36.8 58 16 116/67 96 Room Air 02/01/17 08:00 95 Room Air 02/01/17 00:00 95 Room Air 01/31/17 23:42 36.8 70 16 122/76 95 Room Air 01/31/17 22:10 71 22 01/31/17 21:10 71 24 01/31/17 19:38 73 01/31/17 19:25 142/70 01/31/17 19:22 77 18 142/70 92 Room Air 01/31/17 18:19 36.4 91 18 106/63 96 Room Air General Appearance: no apparent distress, + thin Eyes: normal inspection, PERRL, EOMI Neck: supple, no JVD, trachea midline Respiratory/Chest: no respiratory distress, no accessory muscle use, + decreased breath sounds Cardiovascular: regular rate, rhythm, no gallop, no murmur Abdomen: normal bowel sounds, soft, + tenderness (RUQ, LLQ) Extremities: normal inspection, no pedal edema, no calf tenderness Neurologic/Psych: alert, normal mood/affect, oriented x 3 Skin: normal color, no jaundice, no rash Laboratory Results Last 24 Hours Test 01/31/17 19:00 01/31/17 19:24 01/31/17 20:06 01/31/17 23:24 White Blood Count 11.06 K/uL Red Blood Count 3.72 M/uL Hemoglobin 12.1 g/dL Hematocrit 35.1 % Mean Corpuscular Volume 94.4 fL Mean Corpuscular Hemoglobin 32.5 pg Mean Corpuscular Hemoglobin Concent 34.5 g/dl Platelet Count 354 K/uL Mean Platelet Volume 11.1 fL Neutrophils (%) (Auto) 74.4 % Lymphocytes (%) (Auto) 14.6 % Monocytes (%) (Auto) 9.0 % Eosinophils (%) (Auto) 1.2 % Basophils (%) (Auto) 0.6 % Neutrophils # (Auto) 8.23 K/uL Lymphocytes # (Auto) 1.62 K/uL Monocytes # (Auto) 0.99 K/uL Eosinophils # (Auto) 0.13 K/uL Basophils # (Auto) 0.07 K/uL RDW Standard Deviation 52.9 fL RDW Coefficient of Variation 15.5 % Immature Granulocyte % (Auto) 0.2 % Immature Granulocyte # (Auto) 0.02 K/uL Sodium Level 138 mmol/L Potassium Level mmol/L 3.9 mmol/L Chloride Level 107 mmol/L Carbon Dioxide Level 22 mmol/L Anion Gap 9.0 mmol/L 18.0 mmol/L Blood Urea Nitrogen 14 mg/dl Creatinine 1.20 mg/dl Est Creatinine Clear Calc Drug Dose 27.0 ml/min Estimated GFR () 48.1 Estimated GFR (Non- 41.5 BUN/Creatinine Ratio 12.1 Random Glucose 112 mg/dl Calcium Level 9.3 mg/dl Total Bilirubin 3.3 mg/dl Direct Bilirubin mg/dl 2.3 mg/dl Aspartate Amino Transf (AST/SGOT) U/L 613 U/L Alanine Aminotransferase (ALT/SGPT) 497 U/L Alkaline Phosphatase 999 U/L Total Creatine Kinase U/L 127 U/L Creatine Kinase MB 1.2 ng/ml Creatine Kinase MB Ratio Troponin I < 0.015 ng/ml Total Protein 7.8 gm/dl Albumin 2.5 gm/dl Amylase Level 128 U/L Lipase 1347 U/L Bedside Hemoglobin 12.2 g/dl Bedside Hematocrit 36 % Bedside Sodium 139 mEq/L Bedside Potassium 4.4 mEq/L Bedside Chloride 104 mEq/L Bedside Total CO2 23 mEq/l Bedside Blood Urea Nitrogen 18 mg/dl Bedside Creatinine 0.9 mg/dl Bedside Glucose (other) 115 mg/dl Bedside Ionized Calcium (Eliseo) 1.22 mmol/l Prothrombin Time 11.7 SECONDS Prothromb Time International Ratio 1.1 Activated Partial Thromboplast Time 31.7 SECONDS Partial Thromboplastin Ratio 1.2 Bedside Glucose 85 mg/dl Test 02/01/17 05:09 02/01/17 06:04 02/01/17 11:08 White Blood Count 9.34 K/uL Red Blood Count 3.60 M/uL Hemoglobin 11.4 g/dL Hematocrit 33.9 % Mean Corpuscular Volume 94.2 fL Mean Corpuscular Hemoglobin 31.7 pg Mean Corpuscular Hemoglobin Concent 33.6 g/dl RDW Standard Deviation 52.8 fL RDW Coefficient of Variation 15.3 % Platelet Count 331 K/uL Mean Platelet Volume 11.2 fL Sodium Level 140 mmol/L Potassium Level 3.5 mmol/L Chloride Level 107 mmol/L Carbon Dioxide Level 23 mmol/L Anion Gap 10.0 mmol/L Blood Urea Nitrogen 12 mg/dl Creatinine 1.00 mg/dl Est Creatinine Clear Calc Drug Dose 34.8 ml/min Estimated GFR () 59.9 Estimated GFR (Non- 51.7 BUN/Creatinine Ratio 11.7 Random Glucose 83 mg/dl Calcium Level 8.9 mg/dl Total Bilirubin 2.7 mg/dl Aspartate Amino Transf (AST/SGOT) 622 U/L Alanine Aminotransferase (ALT/SGPT) 460 U/L Alkaline Phosphatase 890 U/L Total Protein 7.2 gm/dl Albumin 2.3 gm/dl Globulin 4.9 gm/dl Albumin/Globulin Ratio 0.5 Bedside Glucose 80 mg/dl 87 mg/dl Impression Patient is a 86 year old female w s/s of abd pain mostly on LLQ, nausea, leukocytosis and markedly elevated LFTs. CT abd/pelvis evidences of ascending cholangitis and sigmoid diverticulitis. She had been started on Zosyn antibx, and afebrile overnight. She is s/p lap cholecystectomy Plan - Continue Zosyn IV - NPO for ERCP by Dr. aVnn this afternoon in OR - GI will give further recs after ERCP is completed - Monitor LFTs - Pt's son (Denis) has been notified of plans above. I have personally seen and examined the patient with JEFF Messina and . Her note reflects my exam and findings. I agree with her impression and plan. Given cholangitis picture, she will need an ERCP. Continue antibiotics. Rell Boyd M.D.
[2017-02-01] MEDS ORDERED: FENTANYL CITRATE INJ 50 MCG/1 ML 2 ML VIAL IV PRN (12:45)
[2017-02-01] MEDS ORDERED: ONDANSETRON INJ 2 MG/ML 2 ML VIAL IV PRN (12:45)
[2017-02-01] MEDS ORDERED: ATROPINE SULFATE 0.1 MG/ML 5ML SYR IV PRN (12:45)
[2017-02-01] MEDS ORDERED: EpHEDrine SULFATE INJ 50 MG/ML AMP IV PRN (12:45)
[2017-02-01] MEDS ORDERED: DEXAMETHASONE SOD INJ 4 MG/ML VIAL ONE (14:03)
[2017-02-01] MEDS ORDERED: LIDOCAINE HCL 2% 2 ML VIAL (20MG/ML) ONE (14:03)
[2017-02-01] MEDS ORDERED: SUCCINYLCHOLINE CHLORIDE 20 MG/ML 10 ML VIAL IV ONE (14:03)
[2017-02-01] MEDS ORDERED: PROPOFOL IV EMULSION 10 MG/ML 20 ML VIAL IV ONE (14:03)
[2017-02-01] MEDS ORDERED: ROCURONIUM BROMIDE 10 MG/ML 5 ML VIAL ONE (14:03)
[2017-02-01] MEDS ORDERED: ONDANSETRON INJ 2 MG/ML 2 ML VIAL ONE (14:03)
[2017-02-01] MEDS ORDERED: FENTANYL CITRATE INJ 50 MCG/1 ML 2 ML VIAL ONE (14:04)
--- NOTE | 2017-02-01 15:25 | History & Physical Bridge Note ---
H&P Re-Evaluation Bridge Note: I have examined the patient, reviewed the History & Physical and in the interval since the performance of the History & Physical I have noted the following changes of clinical significance. she presented with abdomianl pain, elevated liver enzymes and imaging questioning ascending cholangitis: No changes noted. We have discussed the risks of ERCP to include bleeding, infection, perforation, pain, pancreatitis and failed cannulation.
[2017-02-01] MEDS ORDERED: INDOMETHACIN 50 MG SUPP PR ONE ×2 (15:41→15:45)
--- NOTE | 2017-02-01 16:20 | GI REPORT ---
Procedure Date: 02/01/2017 3:34 PM Procedure: ERCP Indications: Suspected ascending cholangitis Medicines: General Anesthesia, Indocin 100 mg VT Complications: No immediate complications. Estimated blood loss: Minimal. Estimated Blood Loss: Estimated blood loss was minimal. Procedure: Pre-Anesthesia Assessment: - Prior to the procedure, a History and Physical was performed, and patient medications, allergies and sensitivities were reviewed. The patient's tolerance of previous anesthesia was reviewed. - The risks and benefits of the procedure and the sedation options and risks were discussed with the patient. All questions were answered and informed consent was obtained. - Patient identification and proposed procedure were verified prior to the procedure by the physician, the nurse and the nursing tech. The procedure was verified in the procedure room. - Pre-procedure physical examination revealed no contraindications to sedation. - ASA Grade Assessment: III - A patient with severe systemic disease. - After reviewing the risks and benefits, the patient was deemed in satisfactory condition to undergo the procedure. - The anesthesia plan was to use general anesthesia. - Immediately prior to administration of medications, the patient was re-assessed for adequacy to receive sedatives. - The heart rate, respiratory rate, oxygen saturations, blood pressure, adequacy of pulmonary ventilation, and response to care were monitored throughout the procedure. - The physical status of the patient was re-assessed after the procedure. After obtaining informed consent, the scope was passed under direct vision. Throughout the procedure, the patient's blood pressure, pulse, and oxygen saturations were monitored continuously. The SCOPE was introduced through the mouth, and advanced to the duodenum and used to inject contrast into the bile duct and ventral pancreatic duct. The ERCP was accomplished without difficulty. The patient tolerated the procedure well. Findings: A low vision therapist film of the abdomen was obtained. Surgical clips, consistent with previous cholecystectomy, were seen in the area of the right upper quadrant of the abdomen. The esophagus was successfully intubated under direct vision without detailed examination of the pharynx, larynx, and associated structures, and upper GI tract. The upper GI tract was grossly normal. The ventral pancreatic duct was inadvertently cannulated with the short-nosed traction sphincterotome (Omni 35) and 0.035 in Acrobat guidewire without any complications. The wire was left in place to aid in biliary cannulation. The bile duct was then deeply cannulated with the short-nosed traction sphincterotome (Omni 35) and 0.035 in Acrobat guidewire. Contrast was injected. I personally interpreted the bile duct images. Contrast extended to the entire biliary tree. The biliary orifice was stenotic. This appeared benign. The middle third of the main bile duct contained filling defect(s) thought to be a stone and sludge. Biliary sphincterotomy was made with a monofilament short-tip traction sphincterotome using ERBE electrocautery. There was no post-sphincterotomy bleeding. To discover objects, the biliary tree was swept with a 8.5 mm balloon to 15 mm balloon starting at the bifurcation. Sludge and some pus was swept from the duct. One 5 Fr by 5 cm pancreatic stent with a full external pigtail and no internal flaps was placed 5 cm into the ventral pancreatic duct (prophylaxis). Clear fluid flowed through the stent(s). The stent was in good position. One 10 Fr by 7 cm biliary stent with a single external flap and a single internal flap was placed 7 cm into the common bile duct. Bile flowed through the stent. The stent was in good position. The total fluoroscopy exposure time was 1 minute and 50 seconds. The endoscope was withdrawn from the patient. Impression: - Biliary papillary stenosis, benign. - A sphincterotomy was performed. - The biliary tree was swept and sludge and pus were found. - One pancreatic stent was placed into the ventral pancreatic duct. - One biliary stent was placed into the CBD. Recommendation: - Avoid aspirin and nonsteroidal anti-inflammatory medicines for 1 week. - Clear liquid diet today. - Observe patient's clinical course following today's ERCP with therapeutic intervention. - Use broad spectrum antibiotics for 2 weeks. - Repeat ERCP in 6 weeks to remove stent. Elsa Vann D.O. Elsa Vann DO 02/01/2017 4:19:21 PM This report has been signed electronically. Note Initiated On: 02/01/2017 3:34 PM I attest to the content of the Intraoperative Record and orders documented therein, exceptions below
--- NOTE | 2017-02-01 16:22 | [facility] Post Operative Brief Note ---
Immediate Operative Summary Operative Date Feb 01, 2017. Pre-Operative Diagnosis Cholangitis Post-Operative Diagnosis Cholangitis Procedure(s) Performed ERCP Surgeon Dr. Vann Pipe Smoker Machine Operator Surgeon(s) None Estimated Blood Loss none Findings sludge and pus in CBD papillary stenosis 5 cm pancreatic stent placed 7 cm biliary stent placed. Specimens None Anesthesia Genteral Complication(s) None Disposition Recovery Room / PACU
--- NOTE | 2017-02-01 16:36 | DIAGNOSTIC IMAGING REPORT ---
ERCP BILIARY DUCTAL CLINICAL HISTORY: ERCP COMPARISON STUDY: None FLUOROSCOPY TIME: 1 minute 50 seconds. FINDINGS: Retrograde passage of a pancreatic as well as common duct stent. Balloon insufflation and sweeping of the common duct. Stent as residual. IMPRESSION: Sweeping of the common bile duct with stent placement Electronically signed by: Miguel Ibarra M.D. 02/01/2017 4:33 PM Dictated Date/Time: 02/01/2017 4:32 PM
--- NOTE | 2017-02-01 17:29 | Anesthesiology Progress Note ---
Anesthesia Post Op Note Date & Time Feb 01, 2017 at 17:28 Vital Signs Pain Intensity: 0 Vital Signs Past 12 Hours Date Time Temp Pulse Resp B/P Pulse Ox O2 Delivery O2 Flow Rate FiO2 02/01/17 17:27 36.6 81 18 159/88 91 Room Air 02/01/17 17:02 66 19 97 02/01/17 17:02 66 19 02/01/17 17:00 128/55 02/01/17 16:58 36.5 70 20 128/55 96 Nasal Cannula 2 02/01/17 16:57 67 22 95 02/01/17 16:57 67 22 02/01/17 16:56 69 20 02/01/17 16:56 70 20 96 02/01/17 16:55 125/53 02/01/17 16:51 67 20 02/01/17 16:51 67 20 97 02/01/17 16:50 124/58 02/01/17 16:50 124/58 02/01/17 16:49 66 21 02/01/17 16:49 66 21 02/01/17 16:49 66 21 100 02/01/17 16:49 66 21 100 02/01/17 16:47 128/76 02/01/17 16:47 128/76 02/01/17 16:44 14 02/01/17 16:44 14 02/01/17 16:44 61 14 02/01/17 16:44 61 14 02/01/17 16:40 121/61 02/01/17 16:40 121/61 02/01/17 16:39 67 13 100 02/01/17 16:39 66 13 02/01/17 16:39 66 13 02/01/17 16:39 67 13 100 02/01/17 16:35 127/58 02/01/17 16:35 127/58 02/01/17 16:34 71 19 02/01/17 16:34 69 19 100 02/01/17 16:34 71 19 02/01/17 16:34 69 19 100 02/01/17 16:33 112/55 02/01/17 16:33 112/55 02/01/17 16:29 36.2 70 19 112/55 99 Mask 10 02/01/17 16:29 69 24 02/01/17 16:29 69 24 99 02/01/17 16:29 69 24 99 02/01/17 16:29 69 24 02/01/17 15:16 36.8 80 16 130/52 95 Room Air 02/01/17 15:05 36.9 67 16 121/70 93 Room Air 02/01/17 08:11 36.8 58 16 116/67 96 Room Air 02/01/17 08:00 95 Room Air Notes Mental Status: alert / awake / arousable, participated in evaluation Pt Amnestic to Procedure: Yes Nausea / Vomiting: adequately controlled Pain: adequately controlled Airway Patency, RR, SpO2: stable & adequate BP & HR: stable & adequate Hydration State: stable & adequate Anesthetic Complications: no major complications apparent
[2017-02-01] MEDS: ONDANSETRON INJ 2 MG/ML 2 ML VIAL IV PRN (17:31)
[2017-02-01] MEDS: CALCIUM 600MG + VIT D 400 IU TAB PO SCH (21:00)
[2017-02-02] VITALS (9 sets, daily range): BP systolic 94–136; BP diastolic 56–76; PULSE 67–73; TEMP 36.4–36.8; O2SAT 91–98
[2017-02-02] MEDS: SODIUM CHLORIDE 0.9% 1000ML 1,000 ML IV SCH ×2 (00:24→13:00)
[2017-02-02] MEDS: PIPERACILL/TAZOBAC IV 3.375 GM in DEXTROSE 5% 100ML 100 ML IV SCH ×3 (02:05→16:53)
[2017-02-02] MEDS: LEVOTHYROXINE 75 MCG TAB PO SCH (05:55)
[2017-02-02] MEDS: HEPARIN SOD 5000 UNIT/0.5 ML CARP SQ SCH ×3 (05:56→21:03)
[2017-02-02] MEDS: INSULIN ASPART 100 UNITS/ML 3 ML PEN SC SCH ×4 (08:10→20:55)
--- NOTE | 2017-02-02 08:27 | Progress Note ---
Internal Med Progress Note Date of Service: Feb 02, 2017. Provider Documentation: SUBJECTIVE: Patient is feeling better today- Abdominal pain has improved. Says "feels gassy " Mild nausea, no vomiting, but anorexia, loss of weight. Denies any fever, chills, specifically right sided abdominal pain. Mental status- at baseline OBJECTIVE: Vital Signs-as noted below Exam: General-AAOX2, no distress Eyes-Icterus + Asymmetric eye size Neck-No JVD Lungs-AEBE, no wheezing, rales Heart-S1, S2 normal, no murmurs Abdomen-Soft, tenderness in LLQ, RUQ, No rigidity, BS present Extremities-No edema Lab data as noted below. Diagnostic Radiology CXR IMPRESSION: No acute process. CT ABD/PELVIS IMPRESSION: 1. There are suggestion of mild fat stranding surrounding the extra hepatic bile ducts. However, the bile ducts are normal in caliber. This is nonspecific but could represent an ascending cholangitis. Clinical correlation recommended. 2. Mild acute sigmoid diverticulitis. No perforation or abscess. 3. Cholecystectomy. 4. Bilateral nephrolithiasis. No hydronephrosis. 5. Moderate thickening of the stomach. This could be due to underdistention. 6. An 8 mm hypodense lesion within the pancreatic head. 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 EKG EKG: NSR at 74 bpm with no acute ischemic changes; no change when compared to EKG from 01/28/14 ASSESSMENT & PLAN: Assessment and Plan : CHOLANGITIS : Patient presented to ED from PCP office for abnormal labs- obstructive jaundice pattern- AST 613, ALT 497, TB 3.3, ALP 999, Direct bilirubin 2.3. Has hx of 2-4 months of abdominal pain, vaguely described as generalized, son who lives with her does not know about it, weight loss, anorexia, on and off nausea. -Afebrile, leucocytosis + mild, LFTs trending down -CT abd/pelvis - ? ascending cholangitis, however, no fever, RUQ tenderness +. No bile duct dilation noted. -S/P ERCP on 02/01/17- Biliary papillary stenosis, spinchterotomy performed, Bile duct swept with sludge and bile, Pancreatic duct- 1 stent placed, Bile duct - 1 stent placed. Plan is to remove stent in 6 weeks -Clear liquid diet, decrease IVF rate -IV Zosyn---> Continue broad spectrum antibiotic for 2 weeks per GI -Appreciate GI inputs ACUTE LEFT SIGMOID (MILD) DIVERTICULITIS -CT abd/pelvis + mild sigmoid diverticulitis. No evidence of abscess or perforation. -Afebrile, leucocytosis + mild -IVF and IV Zosyn -Advance diet as tolerated CKD STAGE 3 -creatinine at baseline around 1.0 -cont IVF -monitor and avoid nephrotoxic agents when able WELL-CONTROLLED DM 2 -recent A1C 5.8 -hold metformin -start ISS -monitor BSG AC HS HYPOTHYROIDISM -cont levothyroxine HTN -BP stable -cont metoprolol -monitor DYSLIPIDEMIA -Hold high-dose statin due to elevated LFTs DVT PROPHYLAXIS Heparin SQ CODE STATUS -DNR per discussion with patient upon admission DISPO Medical mx in progress PT/OT ordered Expected discharge home when stable Vital Signs: Date Time Temp Pulse Resp B/P Pulse Ox O2 Delivery O2 Flow Rate FiO2 02/02/17 07:41 92 Nasal Cannula 2.0 02/02/17 07:34 36.6 70 16 111/71 92 Nasal Cannula 2.0 02/02/17 04:55 36.4 73 16 97/63 97 Nasal Cannula 2.0 02/02/17 01:00 Nasal Cannula 2.0 02/01/17 22:53 36.7 77 16 101/65 95 Nasal Cannula 2.0 02/01/17 17:27 36.6 81 18 159/88 91 Room Air 02/01/17 17:20 97 Nasal Cannula 2.0 02/01/17 17:02 66 19 97 02/01/17 17:02 66 19 02/01/17 17:00 128/55 02/01/17 16:58 36.5 70 20 128/55 96 Nasal Cannula 2 02/01/17 16:57 67 22 95 02/01/17 16:57 67 22 02/01/17 16:56 69 20 02/01/17 16:56 70 20 96 02/01/17 16:55 125/53 02/01/17 16:51 67 20 02/01/17 16:51 67 20 97 02/01/17 16:50 124/58 02/01/17 16:50 124/58 02/01/17 16:49 66 21 02/01/17 16:49 66 21 02/01/17 16:49 66 21 100 02/01/17 16:49 66 21 100 02/01/17 16:47 128/76 02/01/17 16:47 128/76 02/01/17 16:44 14 02/01/17 16:44 14 02/01/17 16:44 61 14 02/01/17 16:44 61 14 02/01/17 16:40 121/61 02/01/17 16:40 121/61 02/01/17 16:39 67 13 100 02/01/17 16:39 66 13 02/01/17 16:39 66 13 02/01/17 16:39 67 13 100 02/01/17 16:35 127/58 02/01/17 16:35 127/58 02/01/17 16:34 71 19 02/01/17 16:34 69 19 100 02/01/17 16:34 71 19 02/01/17 16:34 69 19 100 02/01/17 16:33 112/55 02/01/17 16:33 112/55 02/01/17 16:29 36.2 70 19 112/55 99 Mask 10 02/01/17 16:29 69 24 02/01/17 16:29 69 24 99 02/01/17 16:29 69 24 99 02/01/17 16:29 69 24 02/01/17 15:16 36.8 80 16 130/52 95 Room Air 02/01/17 15:05 36.9 67 16 121/70 93 Room Air Lab Results: Results Past 24 Hours Test 02/01/17 11:08 02/01/17 17:30 02/01/17 19:06 02/02/17 07:30 Range/Units Bedside Glucose 87 99 147 102 70-90 mg/dl Test 02/02/17 08:08 Range/Units
[2017-02-02] MEDS: FERROUS SULFATE 325 MG TAB PO SCH (08:31)
[2017-02-02] MEDS: OMEGA-3 (PURIFIED FISH OIL) 1 GM CAP PO SCH (08:33)
[2017-02-02] MEDS: CEROVITE ADV FORMULA TAB PO SCH (08:33)
[2017-02-02] MEDS: PANTOprazole SOD 40 MG TAB PO SCH ×2 (08:34→20:56)
[2017-02-02] MEDS: METOPROLOL SUCC 25MG EXT REL TAB PO SCH (08:34)
[2017-02-02] MEDS: ALLOPURINOL 300 MG TAB PO SCH (08:35)
[2017-02-02 08:48] LABS: HEMATOCRIT 34.3 % (37-47); MEAN CELL VOLUME 94.5 fL (80-100); MEAN CORPUSCULAR HEMOGLOBIN 32.2 pg (25-34); MEAN CORPUSCULAR HGB CONC 34.1 g/dl (32-36); MEAN PLATELET VOLUME 10.7 fL (7.4-10.4); PLATELET COUNT 346 K/uL (130-400); RED BLOOD COUNT 3.63 M/uL (4.2-5.4); WHITE BLOOD COUNT 8.56 K/uL (4.8-10.8)
[2017-02-02 09:14] LABS: BUN/CREATININE RATIO 13.2 (10-20); CREATININE 1.1 mg/dl (0.60-1.20); POTASSIUM 3.7 mmol/L (3.5-5.1)
[2017-02-02 09:17] LABS: ALB/GLOB RATIO 0.5 (0.9-2)
[2017-02-02 09:19] LABS: CALCIUM 8.3 mg/dl (8.5-10.1)
[2017-02-02] MEDS: POTASSIUM CHLORIDE 20 MEQ TABCR PO SCH (09:46)
[2017-02-02] MEDS: CALCIUM 600MG + VIT D 400 IU TAB PO SCH (20:55)
[2017-02-02] MEDS: ONDANSETRON INJ 2 MG/ML 2 ML VIAL IV PRN (20:55)
[2017-02-03] MEDS: SODIUM CHLORIDE 0.9% 1000ML 1,000 ML IV SCH ×3 (01:25→22:12)
[2017-02-03] MEDS: PIPERACILL/TAZOBAC IV 3.375 GM in DEXTROSE 5% 100ML 100 ML IV SCH ×2 (01:26→10:00)
[2017-02-03] MEDS: LEVOTHYROXINE 75 MCG TAB PO SCH (05:38)
[2017-02-03] MEDS: HEPARIN SOD 5000 UNIT/0.5 ML CARP SQ SCH ×3 (05:40→22:00)
[2017-02-03 07:05] VITALS: BP 112/68; PULSE 63; TEMP 36.8; O2SAT 97
[2017-02-03 07:44] LABS: HEMATOCRIT 27.5 % (37-47); MEAN CELL VOLUME 93.9 fL (80-100); MEAN CORPUSCULAR HEMOGLOBIN 31.1 pg (25-34); MEAN CORPUSCULAR HGB CONC 33.1 g/dl (32-36); MEAN PLATELET VOLUME 10.7 fL (7.4-10.4); PLATELET COUNT 327 K/uL (130-400); RED BLOOD COUNT 2.93 M/uL (4.2-5.4); WHITE BLOOD COUNT 7.84 K/uL (4.8-10.8)
[2017-02-03] MEDS: FERROUS SULFATE 325 MG TAB PO SCH (07:50)
[2017-02-03] MEDS: POTASSIUM CHLORIDE 20 MEQ TABCR PO SCH (07:51)
[2017-02-03] MEDS: CEROVITE ADV FORMULA TAB PO SCH (07:51)
[2017-02-03] MEDS: PANTOprazole SOD 40 MG TAB PO SCH ×2 (07:51→22:12)
[2017-02-03] MEDS: OMEGA-3 (PURIFIED FISH OIL) 1 GM CAP PO SCH (07:51)
[2017-02-03] MEDS: METOPROLOL SUCC 25MG EXT REL TAB PO SCH (07:52)
[2017-02-03] MEDS: ALLOPURINOL 300 MG TAB PO SCH (07:52)
[2017-02-03 08:11] LABS: BUN/CREATININE RATIO 23.3 (10-20); CREATININE 0.92 mg/dl (0.60-1.20); POTASSIUM 4.1 mmol/L (3.5-5.1)
[2017-02-03 08:24] LABS: ALB/GLOB RATIO 0.5 (0.9-2)
[2017-02-03] MEDS: INSULIN ASPART 100 UNITS/ML 3 ML PEN SC SCH ×4 (08:30→21:58)
[2017-02-03 08:31] LABS: CALCIUM 7.8 mg/dl (8.5-10.1)
--- NOTE | 2017-02-03 08:41 | Progress Note ---
Internal Med Progress Note Date of Service: Feb 03, 2017. Provider Documentation: SUBJECTIVE: Patient is feeling worse today. Abdomen feels bloated- gas + , nauseous +, doesnt feel like eating. No BM No vomiting, but anorexia, loss of weight for few weeks-months. Denies any fever, chills. Mental status- at baseline, sitting in chair OBJECTIVE: Vital Signs-as noted below Exam: General-AAOX2, no distress Eyes-Icterus + Asymmetric eye size Neck-No JVD Lungs-AEBE, no wheezing, rales Heart-S1, S2 normal, no murmurs Abdomen-Soft, slight abdominal distension, tenderness in LLQ, RUQ, No rigidity, BS present Extremities-No edema Lab data as noted below. Diagnostic Radiology CXR IMPRESSION: No acute process. CT ABD/PELVIS IMPRESSION: 1. There are suggestion of mild fat stranding surrounding the extra hepatic bile ducts. However, the bile ducts are normal in caliber. This is nonspecific but could represent an ascending cholangitis. Clinical correlation recommended. 2. Mild acute sigmoid diverticulitis. No perforation or abscess. 3. Cholecystectomy. 4. Bilateral nephrolithiasis. No hydronephrosis. 5. Moderate thickening of the stomach. This could be due to underdistention. 6. An 8 mm hypodense lesion within the pancreatic head. 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 EKG EKG: NSR at 74 bpm with no acute ischemic changes; no change when compared to EKG from 01/28/14 ASSESSMENT & PLAN: Assessment and Plan : CHOLANGITIS : Patient presented to ED from PCP office for abnormal labs- obstructive jaundice pattern- AST 613, ALT 497, TB 3.3, ALP 999, Direct bilirubin 2.3. Has hx of 2-4 months of abdominal pain, vaguely described as generalized, son who lives with her does not know about it, weight loss, anorexia, on and off nausea. -Afebrile, leucocytosis resolved, LFTs slightly up today -CT abd/pelvis - ? ascending cholangitis, however, no fever, RUQ tenderness +. No bile duct dilation noted. -S/P ERCP on 02/01/17- Biliary papillary stenosis, spinchterotomy performed, Bile duct swept with sludge and bile, Pancreatic duct- 1 stent placed, Bile duct - 1 stent placed. Plan is to remove stent in 6 weeks -Clear liquid diet, Ok to discontinue IVF. -IV Zosyn---> Continue broad spectrum antibiotic for 2 weeks per GI -Appreciate GI inputs ACUTE LEFT SIGMOID (MILD) DIVERTICULITIS -CT abd/pelvis + mild sigmoid diverticulitis. No evidence of abscess or perforation. -Afebrile, leucocytosis + mild -IVF - IV Zosyn -Advance diet as tolerated CKD STAGE 3 -creatinine at baseline around 1.0 -monitor and avoid nephrotoxic agents when able WELL-CONTROLLED DM 2 -recent A1C 5.8 -hold metformin -start ISS -monitor BSG AC HS HYPOTHYROIDISM -cont levothyroxine HTN -BP stable -cont metoprolol -monitor DYSLIPIDEMIA -Hold high-dose statin due to elevated LFTs DVT PROPHYLAXIS Heparin SQ CODE STATUS -DNR per discussion with patient upon admission DISPO Medical mx in progress PT/OT ordered Expected discharge home when stable Vital Signs: Date Time Temp Pulse Resp B/P Pulse Ox O2 Delivery O2 Flow Rate FiO2 02/03/17 07:05 36.8 63 18 112/68 97 Room Air 02/03/17 00:01 Room Air 02/02/17 23:08 36.8 67 14 106/56 95 Room Air 02/02/17 19:30 Room Air 02/02/17 15:54 93 Room Air 02/02/17 15:50 36.7 71 20 94/57 91 Room Air 02/02/17 13:54 68 98 02/02/17 09:50 68 136/76 98 Room Air 02/02/17 08:47 98 Room Air Lab Results: Results Past 24 Hours Test 02/02/17 08:36 02/02/17 11:11 02/02/17 16:14 02/02/17 19:37 Range/Units White Blood Count 8.56 4.8-10.8 K/uL Red Blood Count 3.63 4.2-5.4 M/uL Hemoglobin 11.7 12.0-16.0 g/dL Hematocrit 34.3 37-47 % Mean Corpuscular Volume 94.5 80-100 fL Mean Corpuscular Hemoglobin 32.2 25-34 pg Mean Corpuscular Hemoglobin Concent 34.1 32-36 g/dl RDW Standard Deviation 53.5 36.4-46.3 fL RDW Coefficient of Variation 15.4 11.5-14.5 % Platelet Count 346 130-400 K/uL Mean Platelet Volume 10.7 7.4-10.4 fL Sodium Level 138 136-145 mmol/L Potassium Level 3.7 3.5-5.1 mmol/L Chloride Level 107 98-107 mmol/L Carbon Dioxide Level 20 21-32 mmol/L Anion Gap 11.0 3-11 mmol/L Blood Urea Nitrogen 15 7-18 mg/dl Creatinine 1.10 0.60-1.20 mg/dl Est Creatinine Clear Calc Drug Dose 31.6 ml/min Estimated GFR () 53.4 Estimated GFR (Non- 46.1 BUN/Creatinine Ratio 13.2 10-20 Random Glucose 143 70-99 mg/dl Calcium Level 8.3 8.5-10.1 mg/dl Total Bilirubin 2.7 0.2-1 mg/dl Aspartate Amino Transf (AST/SGOT) 569 15-37 U/L Alanine Aminotransferase (ALT/SGPT) 428 12-78 U/L Alkaline Phosphatase 842 45-117 U/L Total Protein 7.0 6.4-8.2 gm/dl Albumin 2.3 3.4-5.0 gm/dl Globulin 4.7 2.5-4.0 gm/dl Albumin/Globulin Ratio 0.5 0.9-2 Bedside Glucose 170 267 138 70-90 mg/dl Test 02/03/17 07:00 Range/Units White Blood Count 7.84 4.8-10.8 K/uL Red Blood Count 2.93 4.2-5.4 M/uL Hemoglobin 9.1 12.0-16.0 g/dL Hematocrit 27.5 37-47 % Mean Corpuscular Volume 93.9 80-100 fL Mean Corpuscular Hemoglobin 31.1 25-34 pg Mean Corpuscular Hemoglobin Concent 33.1 32-36 g/dl RDW Standard Deviation 54.5 36.4-46.3 fL RDW Coefficient of Variation 15.7 11.5-14.5 % Platelet Count 327 130-400 K/uL Mean Platelet Volume 10.7 7.4-10.4 fL Sodium Level 144 136-145 mmol/L Potassium Level 4.1 3.5-5.1 mmol/L Chloride Level 116 98-107 mmol/L Carbon Dioxide Level 20 21-32 mmol/L Anion Gap 8.0 3-11 mmol/L Blood Urea Nitrogen 21 7-18 mg/dl Creatinine 0.92 0.60-1.20 mg/dl Est Creatinine Clear Calc Drug Dose 37.8 ml/min Estimated GFR () 66.3 Estimated GFR (Non- 57.2 BUN/Creatinine Ratio 23.3 10-20 Random Glucose 95 70-99 mg/dl Calcium Level 7.8 8.5-10.1 mg/dl Total Bilirubin 3.4 0.2-1 mg/dl Aspartate Amino Transf (AST/SGOT) 633 15-37 U/L Alanine Aminotransferase (ALT/SGPT) 390 12-78 U/L Alkaline Phosphatase 848 45-117 U/L Total Protein 5.8 6.4-8.2 gm/dl Albumin 1.8 3.4-5.0 gm/dl Globulin 4.0 2.5-4.0 gm/dl Albumin/Globulin Ratio 0.5 0.9-2
[2017-02-03] MEDS ORDERED: BISACODYL 5 MG TABEC PO PRN (08:45)
[2017-02-03] MEDS ORDERED: TRAMADOL HCL 50 MG TAB PO PRN (08:45)
[2017-02-03] MEDS: DOCUSATE SODIUM 100 MG CAP PO SCH ×2 (10:00→21:57)
[2017-02-03] MEDS: POLYETHYLENE (MIRALAX) 17 GM PACK PO SCH (10:01)
--- NOTE | 2017-02-03 13:45 | DIAGNOSTIC IMAGING REPORT ---
KUB HISTORY: Generalized abdominal pain. r/o constipation COMPARISON: Abdomen and pelvis CT 01/31/2017. FINDINGS: The bowel gas pattern is unremarkable. There are no dilated loops of small bowel to suggest an obstruction. No renal calculi. No ureteral calculi. No pneumoperitoneum or pneumatosis. Common bile duct and main pancreatic duct stents are identified and appear to be in good position. Mild to moderate well-formed stool within the colon. The lung bases are clear. IMPRESSION: 1. No evidence for bowel obstruction. 2. Mild to moderate stool within the colon. 3. Common bile duct and main pancreatic duct stents are identified and likely in good position. Electronically signed by: Alan Hernandez M.D. 02/03/2017 1:43 PM Dictated Date/Time: 02/03/2017 1:41 PM
--- NOTE | 2017-02-03 14:27 | Progress Note ---
Progress Note Date of Service Feb 03, 2017. Progress Note Pt complains of bloating, diffuse abdominal pain worse in upper abdomen. She had BM x1, and denies sense of incomplete evacuation. She is not hungry. Date Time Temp Pulse Resp B/P Pulse Ox O2 Delivery O2 Flow Rate FiO2 02/03/17 08:00 Room Air 02/03/17 07:05 36.8 63 18 112/68 97 Room Air 02/03/17 00:01 Room Air 02/02/17 23:08 36.8 67 14 106/56 95 Room Air 02/02/17 19:30 Room Air 02/02/17 15:54 93 Room Air 02/02/17 15:50 36.7 71 20 94/57 91 Room Air Appears uncomfortable. Abd: Soft and ND. She is tender in epigastrium and RUQ and LLQ. No guarding or rebound. Last 24 Hours Test 02/02/17 16:14 02/02/17 19:37 02/03/17 07:00 02/03/17 07:18 Bedside Glucose 267 mg/dl 138 mg/dl 92 mg/dl White Blood Count 7.84 K/uL Red Blood Count 2.93 M/uL Hemoglobin 9.1 g/dL Hematocrit 27.5 % Mean Corpuscular Volume 93.9 fL Mean Corpuscular Hemoglobin 31.1 pg Mean Corpuscular Hemoglobin Concent 33.1 g/dl RDW Standard Deviation 54.5 fL RDW Coefficient of Variation 15.7 % Platelet Count 327 K/uL Mean Platelet Volume 10.7 fL Sodium Level 144 mmol/L Potassium Level 4.1 mmol/L Chloride Level 116 mmol/L Carbon Dioxide Level 20 mmol/L Anion Gap 8.0 mmol/L Blood Urea Nitrogen 21 mg/dl Creatinine 0.92 mg/dl Est Creatinine Clear Calc Drug Dose 37.8 ml/min Estimated GFR () 66.3 Estimated GFR (Non- 57.2 BUN/Creatinine Ratio 23.3 Random Glucose 95 mg/dl Calcium Level 7.8 mg/dl Total Bilirubin 3.4 mg/dl Aspartate Amino Transf (AST/SGOT) 633 U/L Alanine Aminotransferase (ALT/SGPT) 390 U/L Alkaline Phosphatase 848 U/L Total Protein 5.8 gm/dl Albumin 1.8 gm/dl Globulin 4.0 gm/dl Albumin/Globulin Ratio 0.5 Lipase 1647 U/L Test 02/03/17 11:18 Bedside Glucose 134 mg/dl A/P: DIverticulitis CHolangitis sp ERCP, biliary sphincterotomy, stent - I suspect that she her biliary stent may be obstructing her bile duct. D/w Dr. Vann - will request HIDA today to look for CBD patency, plan repeat ERCP and stent removal if HIDA abnormal or LFT's rise. - I have changed her abx from Zosyn to cipro/flagyl due to the unlikely possibility that her rising bili may be due to cholestatic hepatitis from Zosyn.
[2017-02-03] MEDS: METRONIDAZOLE / NSS 500 MG in PREMIXED NSS 100 ML IV SCH ×2 (15:00→22:11)
[2017-02-03 16:00] VITALS: O2SAT 97
--- NOTE | 2017-02-03 19:15 | DIAGNOSTIC IMAGING REPORT ---
NUCLEAR MEDICINE HEPATOBILIARY SCAN HISTORY: Check stents as increasing abdominal pain/ ERCp done on 02/01/17 COMPARISON: Abdomen and pelvis CT 01/31/2017. TECHNIQUE: Immediately following the intravenous administration of 5.4 mCi Tc-99m Choletec, dynamic anterior abdominal imaging was performed. FINDINGS: Uniform hepatic tracer accumulation is shown. However, radiotracer did not extend into the intrahepatic or extra hepatic bile ducts. Radiotracer remained within the liver at the 75 minute and 4 hour delay images. IMPRESSION: Radiotracer remained within the liver throughout the examination including the 4 hour delayed images. This could be due to underlying hepatic pathology/disease versus common bile duct obstruction. Electronically signed by: Alan Hernandez M.D. 02/03/2017 7:13 PM Dictated Date/Time: 02/03/2017 7:11 PM
[2017-02-03] MEDS: CIPROFLOXACIN / D5W 400 MG in PREMIXED IN D5W 200 ML IV SCH (21:57)
[2017-02-03] MEDS ORDERED: HYDROmorphone INJ 0.5 MG/0.5 ML SYR IV PRN (22:00)
[2017-02-03] MEDS: CALCIUM 600MG + VIT D 400 IU TAB PO SCH (22:12)
[2017-02-03 22:15] LABS: HEMATOCRIT 23.1 % (37-47)
[2017-02-03 22:29] LABS: CALCIUM 7.8 mg/dl (8.5-10.1)
--- NOTE | 2017-02-03 22:29 | DIAGNOSTIC IMAGING REPORT ---
CHEST ONE VIEW PORTABLE HISTORY: Short of breath. COMPARISON: Chest 01/31/2017. FINDINGS: The heart is normal in size. No pleural effusions. No pneumothorax. Patchy left basilar densities. Mild bibasilar interstitial thickening. This could be due to vascular crowding. IMPRESSION: Patchy left basilar densities and bibasilar interstitial thickening which could be due to the low lung volumes or a pneumonia. Recommend follow-up to ensure resolution. Electronically signed by: Alan Hernandez M.D. 02/03/2017 10:26 PM Dictated Date/Time: 02/03/2017 10:24 PM
[2017-02-03 22:31] LABS: BUN/CREATININE RATIO 22.6 (10-20); CREATININE 0.88 mg/dl (0.60-1.20); MAGNESIUM 1.7 mg/dl (1.8-2.4); POTASSIUM 3.9 mmol/L (3.5-5.1)
[2017-02-03 22:34] LABS: PARTIAL THROMBOPLASTIN RATIO 3.3
[2017-02-03 22:37] LABS: ALB/GLOB RATIO 0.5 (0.9-2)
[2017-02-03] MEDS ORDERED: MAGNESIUM SULFATE 1GM / D5W 1 GM in PREMIXED IN D5W 100 ML IV STA (22:45)
[2017-02-03 23:23] VITALS: BP 134/71; PULSE 78; TEMP 36.5; O2SAT 97
[2017-02-03] MEDS: SODIUM CHLORIDE 0.45% 1000ML 1,000 ML IV SCH (23:38)
[2017-02-03 23:58] LABS: INR 1.1 (0.9-1.1)
[2017-02-04] VITALS (16 sets, daily range): BP systolic 92–164; BP diastolic 55–79; PULSE 68–100; TEMP 36.3–37.1; O2SAT 97–100
[2017-02-04] MEDS ORDERED: OPTIRAY 320 IV PRN
[2017-02-04] MEDS: ONDANSETRON INJ 2 MG/ML 2 ML VIAL IV PRN ×2 (02:35→18:15)
[2017-02-04] MEDS: HEPARIN SOD 5000 UNIT/0.5 ML CARP SQ SCH (02:36)
--- NOTE | 2017-02-04 02:37 | Progress Note ---
Internal Med Progress Note Date of Service: Feb 04, 2017. Provider Documentation: Made aware by RN of blood tinged emesis in AM. px has been refusing to take PO PPI as per EMR. Hg stable in the 7s AP UGIB IV PPI BID for now ff HH, transfuse pRBC if Hg less than 7 may need PPI drip if w/ further bleeding and/or significant Hg drop hold Heparin SQ order for now (px refusing shots anyway) SCDs interim Vital Signs: Date Time Temp Pulse Resp B/P Pulse Ox O2 Delivery O2 Flow Rate FiO2 02/04/17 07:10 36.9 80 18 92/56 99 Nasal Cannula 2.0 02/04/17 00:01 Nasal Cannula 2.0 02/03/17 23:23 36.5 78 18 134/71 97 Nasal Cannula 2.0 02/03/17 16:00 97 Room Air 02/03/17 08:00 Room Air Lab Results: Results Past 24 Hours Test 02/03/17 11:18 02/03/17 16:51 02/03/17 19:47 02/03/17 22:05 Range/Units Bedside Glucose 134 110 147 70-90 mg/dl Hemoglobin 7.7 12.0-16.0 g/dL Hematocrit 23.1 37-47 % Prothrombin Time 12.0 9.0-12.0 SECONDS Prothromb Time International Ratio 1.1 0.9-1.1 Activated Partial Thromboplast Time 87.0 21.0-31.0 SECONDS Partial Thromboplastin Ratio 3.3 Sodium Level 146 136-145 mmol/L Potassium Level 3.9 3.5-5.1 mmol/L Chloride Level 115 98-107 mmol/L Carbon Dioxide Level 18 21-32 mmol/L Anion Gap 13.0 3-11 mmol/L Blood Urea Nitrogen 20 7-18 mg/dl Creatinine 0.88 0.60-1.20 mg/dl Est Creatinine Clear Calc Drug Dose 39.5 ml/min Estimated GFR () 69.9 Estimated GFR (Non- 60.3 BUN/Creatinine Ratio 22.6 10-20 Random Glucose 125 70-99 mg/dl Calcium Level 7.8 8.5-10.1 mg/dl Magnesium Level 1.7 1.8-2.4 mg/dl Total Bilirubin 4.3 0.2-1 mg/dl Aspartate Amino Transf (AST/SGOT) 614 15-37 U/L Alanine Aminotransferase (ALT/SGPT) 377 12-78 U/L Alkaline Phosphatase 866 45-117 U/L Troponin I 0.031 0-0.045 ng/ml Total Protein 5.6 6.4-8.2 gm/dl Albumin 1.9 3.4-5.0 gm/dl Globulin 3.7 2.5-4.0 gm/dl Albumin/Globulin Ratio 0.5 0.9-2 Lipase 1388 73-393 U/L Test 02/04/17 05:00 Range/Units White Blood Count 10.59 4.8-10.8 K/uL Red Blood Count 2.27 4.2-5.4 M/uL Hemoglobin 7.2 12.0-16.0 g/dL Hematocrit 21.5 37-47 % Mean Corpuscular Volume 94.7 80-100 fL Mean Corpuscular Hemoglobin 31.7 25-34 pg Mean Corpuscular Hemoglobin Concent 33.5 32-36 g/dl RDW Standard Deviation 55.0 36.4-46.3 fL RDW Coefficient of Variation 15.9 11.5-14.5 % Platelet Count 287 130-400 K/uL Mean Platelet Volume 10.8 7.4-10.4 fL Sodium Level 141 136-145 mmol/L Potassium Level 3.8 3.5-5.1 mmol/L Chloride Level 113 98-107 mmol/L Carbon Dioxide Level 20 21-32 mmol/L Anion Gap 8.0 3-11 mmol/L Blood Urea Nitrogen 14 7-18 mg/dl Creatinine 0.80 0.60-1.20 mg/dl Est Creatinine Clear Calc Drug Dose 43.5 ml/min Estimated GFR () 78.5 Estimated GFR (Non- 67.7 BUN/Creatinine Ratio 17.8 10-20 Random Glucose 144 70-99 mg/dl Calcium Level 7.4 8.5-10.1 mg/dl Magnesium Level 2.4 1.8-2.4 mg/dl Total Bilirubin 4.6 0.2-1 mg/dl Aspartate Amino Transf (AST/SGOT) 586 15-37 U/L Alanine Aminotransferase (ALT/SGPT) 371 12-78 U/L Alkaline Phosphatase 926 45-117 U/L Total Protein 5.5 6.4-8.2 gm/dl Albumin 1.9 3.4-5.0 gm/dl Globulin 3.6 2.5-4.0 gm/dl Albumin/Globulin Ratio 0.5 0.9-2
[2017-02-04] MEDS ORDERED: PANTOprazole INJ 80 MG in SYRINGE 0 ML IV STA (03:00)
[2017-02-04 06:01] LABS: HEMATOCRIT 21.5 % (37-47); MEAN CELL VOLUME 94.7 fL (80-100); MEAN CORPUSCULAR HEMOGLOBIN 31.7 pg (25-34); MEAN CORPUSCULAR HGB CONC 33.5 g/dl (32-36); MEAN PLATELET VOLUME 10.8 fL (7.4-10.4); PLATELET COUNT 287 K/uL (130-400); RED BLOOD COUNT 2.27 M/uL (4.2-5.4); WHITE BLOOD COUNT 10.59 K/uL (4.8-10.8)
[2017-02-04] MEDS: METRONIDAZOLE / NSS 500 MG in PREMIXED NSS 100 ML IV SCH ×2 (06:12→13:50)
[2017-02-04] MEDS: LEVOTHYROXINE 75 MCG TAB PO SCH (06:12)
[2017-02-04] MEDS: INSULIN ASPART 100 UNITS/ML 3 ML PEN SC SCH ×4 (06:30→21:00)
[2017-02-04 06:38] LABS: BUN/CREATININE RATIO 17.8 (10-20); CALCIUM 7.4 mg/dl (8.5-10.1); CREATININE 0.8 mg/dl (0.60-1.20); MAGNESIUM 2.4 mg/dl (1.8-2.4); POTASSIUM 3.8 mmol/L (3.5-5.1)
[2017-02-04 06:40] LABS: ALB/GLOB RATIO 0.5 (0.9-2)
--- NOTE | 2017-02-04 06:45 | DIAGNOSTIC IMAGING REPORT ---
CT ANGIOGRAM OF THE CHEST CLINICAL HISTORY: Chest pain and shortness of breath COMPARISON STUDY: Chest x-ray dated 02/03/2017 TECHNIQUE: Following the IV administration of 84 mL of [id number]-[id number], CT angiogram of the thorax was performed from the thoracic inlet to the lung bases utilizing the pulmonary embolus protocol. Images are reviewed in the axial, sagittal, and coronal planes. IV contrast was administered without complication. MIP imaging was performed. CT DOSE: 163.34 mGy.cm FINDINGS: No pathologically enlarged axillary mediastinal or hilar lymph nodes were visualized. There was no evidence of thoracic aortic dilatation. There were no pulmonary artery filling defects to indicate acute pulmonary embolism. No pleural effusions are visualized. There are bibasal atelectatic changes. There is no lobar consolidation. There are no airspace opacities suspicious for pneumonia. IMPRESSION: 1. No CT evidence of acute pulmonary embolism 2. Bibasilar atelectasis 3. No evidence of focal pulmonary consolidation Electronically signed by: Ankur Chu M.D. 02/04/2017 6:43 AM Dictated Date/Time: 02/04/2017 6:40 AM
--- NOTE | 2017-02-04 06:54 | Clinical Documentation Query ---
CLINICAL DOCUMENTATION QUERY Ignore. Query answered by GI parts consultant. IF IN AGREEMENT, YOU MUST DOCUMENT ABOVE DIAGNOSTIC STATEMENT IN DAILY PROGRESS NOTES AND DISCHARGE SUMMARY. This document is not part of the patient's record. Thank You, Orion Blake, RN [phone]
[2017-02-04] MEDS: FERROUS SULFATE 325 MG TAB PO SCH (08:24)
[2017-02-04] MEDS: DOCUSATE SODIUM 100 MG CAP PO SCH ×2 (08:24→21:00)
[2017-02-04] MEDS: POTASSIUM CHLORIDE 20 MEQ TABCR PO SCH (08:24)
[2017-02-04] MEDS: POLYETHYLENE (MIRALAX) 17 GM PACK PO SCH (08:24)
[2017-02-04] MEDS: METOPROLOL SUCC 25MG EXT REL TAB PO SCH (08:25)
[2017-02-04] MEDS: OMEGA-3 (PURIFIED FISH OIL) 1 GM CAP PO SCH (08:25)
[2017-02-04] MEDS: CEROVITE ADV FORMULA TAB PO SCH (08:25)
[2017-02-04] MEDS: ALLOPURINOL 300 MG TAB PO SCH (08:25)
[2017-02-04] MEDS: CIPROFLOXACIN / D5W 400 MG in PREMIXED IN D5W 200 ML IV SCH ×2 (08:26→21:13)
--- NOTE | 2017-02-04 09:03 | Progress Note ---
Internal Med Progress Note Date of Service: Feb 04, 2017. Provider Documentation: SUBJECTIVE: Patient clinically deteriorated today. Yellowish discoloration of skin more apparent today. Had episode of hematemesis -fresh red blood (mild) yesterday evening, loose / dark brown with fresh red blood BM today Had chest pain/sob overnight. Abdomen feels bloated gas + , pain in upper abdomen, nauseous +, doesn't feel like eating. No BM. No vomiting, but anorexia, loss of weight for few weeks-months. Denies any fever, chills. Mental status- at baseline OBJECTIVE: Vital Signs-as noted below Exam: General-AAOX2, mild distress due to pain Eyes-Icterus , Yellowish discoloration of pain ; + Asymmetric eye size Neck-No JVD Lungs-AEBE, no wheezing, rales Heart-S1, S2 normal, no murmurs Abdomen-Soft, slight abdominal distension, tenderness in LLQ, RUQ, No rigidity, BS present Extremities-No edema Lab data as noted below. Diagnostic Radiology CXR IMPRESSION: No acute process. CT ABD/PELVIS IMPRESSION: 1. There are suggestion of mild fat stranding surrounding the extra hepatic bile ducts. However, the bile ducts are normal in caliber. This is nonspecific but could represent an ascending cholangitis. Clinical correlation recommended. 2. Mild acute sigmoid diverticulitis. No perforation or abscess. 3. Cholecystectomy. 4. Bilateral nephrolithiasis. No hydronephrosis. 5. Moderate thickening of the stomach. This could be due to underdistention. 6. An 8 mm hypodense lesion within the pancreatic head. 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 EKG EKG: NSR at 74 bpm with no acute ischemic changes; no change when compared to EKG from 01/28/14 ASSESSMENT & PLAN: Assessment and Plan : CHOLANGITIS S/P STENT PLACEMENT: Clinically deteriorated today--> abdominal pain is worse, LFTs worsening. Concerned about Stent obstruction Patient presented to ED from PCP office for abnormal labs- obstructive jaundice pattern- AST 613, ALT 497, TB 3.3, ALP 999, Direct bilirubin 2.3. Has hx of 2-4 months of abdominal pain, vaguely described as generalized, son who lives with her does not know about it, weight loss, anorexia, on and off nausea. -S/P ERCP on 02/01/17- Biliary papillary stenosis, spinchterotomy performed, Bile duct swept with sludge and bile, Pancreatic duct- 1 stent placed, Bile duct - 1 stent placed. Plan was to remove stent in 6 weeks, but may need removal today if obstruction + -HIDA was done yesterday- showed stents in good position -CT abd/pelvis - ? ascending cholangitis, however, no fever, RUQ tenderness +. No bile duct dilation noted. -NPO, IVF -IV Zosyn x 2 ---> Changed to IV Cipro/Flagyl if at all zosyn induced cholestasis contributing to worsening LFTs. Per GI. -Appreciate GI inputs PLAN: May need ERCP for stent removal due to clinical deterioration, worsening LFTs and concern for possible obstruction in stent. Discussed with GI. ACUTE LEFT SIGMOID (MILD) DIVERTICULITIS WITH BLEEDING: Had dark brown, loose BM with fresh red blood today, Mild hematemesis -fresh red blood yesterday. -CT abd/pelvis on admission + mild sigmoid diverticulitis. No evidence of abscess or perforation. May need to repeat CT abd/pelvis -Afebrile, leucocytosis resolved -IVF; NPO as above -IV Antibiotics- Zosyn x 2 days ---> Changed to IV Cipro/Flagyl as above per GI ACUTE BLOOD LOSS ANEMIA -Hb down to 7.2 from 9.1 yesterday due to GI bleeding as above. Likely diverticular bleeding -Will transfuse 2 units of PRBCs today -IV Protonix 40 mg BID -Monitor H & H S/P CHEST PAIN/SOB Likely related to above, less likely to be cardiac, anxiety due to current medical issues contributing -Had an episode of chest pain/SOB yesterday night -CT chest was done- no acute abnormalities noted -EKG- no sig ischemic changes, Troponin x 1 negative. Will follow up next one. CKD STAGE 3 -creatinine at baseline around 1.0 -monitor and avoid nephrotoxic agents when able WELL-CONTROLLED DM 2 -recent A1C 5.8 -hold metformin -start ISS -monitor BSG AC HS HYPOTHYROIDISM -cont levothyroxine HTN -BP stable -cont metoprolol -monitor DYSLIPIDEMIA -Hold high-dose statin due to elevated LFTs PAIN CONTROL -Allergic to morphine/Oxycodone -IV Dilaudid 0.5 mg q 6 hours prn tolerating it, but using it much DVT PROPHYLAXIS Heparin SQ - hold due to bleeding. SCDS/TEDS CODE STATUS -DNR per discussion with patient upon admission DISPO Medical mx in progress- PT/OT to be done prior to discharge. Expected discharge home when stable- lives with son Discussed with AYLA Roman. Vital Signs: Date Time Temp Pulse Resp B/P Pulse Ox O2 Delivery O2 Flow Rate FiO2 02/04/17 07:10 36.9 80 18 92/56 99 Nasal Cannula 2.0 02/04/17 00:01 Nasal Cannula 2.0 02/03/17 23:23 36.5 78 18 134/71 97 Nasal Cannula 2.0 02/03/17 16:00 97 Room Air Lab Results: Results Past 24 Hours Test 02/03/17 11:18 02/03/17 16:51 02/03/17 19:47 02/03/17 22:05 Range/Units Bedside Glucose 134 110 147 70-90 mg/dl Hemoglobin 7.7 12.0-16.0 g/dL Hematocrit 23.1 37-47 % Prothrombin Time 12.0 9.0-12.0 SECONDS Prothromb Time International Ratio 1.1 0.9-1.1 Activated Partial Thromboplast Time 87.0 21.0-31.0 SECONDS Partial Thromboplastin Ratio 3.3 Sodium Level 146 136-145 mmol/L Potassium Level 3.9 3.5-5.1 mmol/L Chloride Level 115 98-107 mmol/L Carbon Dioxide Level 18 21-32 mmol/L Anion Gap 13.0 3-11 mmol/L Blood Urea Nitrogen 20 7-18 mg/dl Creatinine 0.88 0.60-1.20 mg/dl Est Creatinine Clear Calc Drug Dose 39.5 ml/min Estimated GFR () 69.9 Estimated GFR (Non- 60.3 BUN/Creatinine Ratio 22.6 10-20 Random Glucose 125 70-99 mg/dl Calcium Level 7.8 8.5-10.1 mg/dl Magnesium Level 1.7 1.8-2.4 mg/dl Total Bilirubin 4.3 0.2-1 mg/dl Aspartate Amino Transf (AST/SGOT) 614 15-37 U/L Alanine Aminotransferase (ALT/SGPT) 377 12-78 U/L Alkaline Phosphatase 866 45-117 U/L Troponin I 0.031 0-0.045 ng/ml Total Protein 5.6 6.4-8.2 gm/dl Albumin 1.9 3.4-5.0 gm/dl Globulin 3.7 2.5-4.0 gm/dl Albumin/Globulin Ratio 0.5 0.9-2 Lipase 1388 73-393 U/L Test 02/04/17 05:00 02/04/17 07:41 Range/Units White Blood Count 10.59 4.8-10.8 K/uL Red Blood Count 2.27 4.2-5.4 M/uL Hemoglobin 7.2 12.0-16.0 g/dL Hematocrit 21.5 37-47 % Mean Corpuscular Volume 94.7 80-100 fL Mean Corpuscular Hemoglobin 31.7 25-34 pg Mean Corpuscular Hemoglobin Concent 33.5 32-36 g/dl RDW Standard Deviation 55.0 36.4-46.3 fL RDW Coefficient of Variation 15.9 11.5-14.5 % Platelet Count 287 130-400 K/uL Mean Platelet Volume 10.8 7.4-10.4 fL Sodium Level 141 136-145 mmol/L Potassium Level 3.8 3.5-5.1 mmol/L Chloride Level 113 98-107 mmol/L Carbon Dioxide Level 20 21-32 mmol/L Anion Gap 8.0 3-11 mmol/L Blood Urea Nitrogen 14 7-18 mg/dl Creatinine 0.80 0.60-1.20 mg/dl Est Creatinine Clear Calc Drug Dose 43.5 ml/min Estimated GFR () 78.5 Estimated GFR (Non- 67.7 BUN/Creatinine Ratio 17.8 10-20 Random Glucose 144 70-99 mg/dl Calcium Level 7.4 8.5-10.1 mg/dl Magnesium Level 2.4 1.8-2.4 mg/dl Total Bilirubin 4.6 0.2-1 mg/dl Aspartate Amino Transf (AST/SGOT) 586 15-37 U/L Alanine Aminotransferase (ALT/SGPT) 371 12-78 U/L Alkaline Phosphatase 926 45-117 U/L Total Protein 5.5 6.4-8.2 gm/dl Albumin 1.9 3.4-5.0 gm/dl Globulin 3.6 2.5-4.0 gm/dl Albumin/Globulin Ratio 0.5 0.9-2 Bedside Glucose 123 70-90 mg/dl
[2017-02-04] MEDS ORDERED: INDOMETHACIN 50 MG SUPP PR SCH (10:00)
[2017-02-04] MEDS ORDERED: ERYTHROMYCIN IV 250 MG in SODIUM CHLORIDE 0.9% 250ML 250 ML IV SCH (10:30)
--- NOTE | 2017-02-04 10:44 | Gastroenterology Progress Note ---
Progress Note Date of Service: Feb 04, 2017 Subjective Pt evaluation today including: conversation w/ patient, physical exam, chart review, lab review, review of studies, review of inpatient medication list Pt c/o bloating and gas pressure on upper abd areas. Some nausea and vomiting - noted small amt of emesis w blood; dark cassandra watery stools this AM as well. Hgb down to 7 from 11 at admission Review of Systems Constitutional: No chills, No fever Respiratory: No cough, No shortness of breath Abdomen: + GI bleeding, + diarrhea, + nausea, + pain, + see HPI, + vomiting Medications Current Inpatient Medications Medications (Trade) Dose Ordered Sig/Faith Route Start Time Stop Time Status Last Admin Dose Admin Ioversol (Optiray 320) 100 ml UD PRN IV 01/31/17 19:00 02/04/17 18:59 Heparin Sodium (Porcine) (Heparin Sq 5000 Unit/0.5ml) 5,000 unit Q8H SQ 02/01/17 06:00 03/03/17 05:59 Future Hold 02/03/17 13:48 5,000 UNIT Ondansetron HCl (Zofran Inj) 4 mg Q6H PRN IV 01/31/17 22:15 03/02/17 22:14 02/04/17 02:35 4 MG Glucose (Glucose 40% Gel) 15-30 GRAMS 15 GRAMS... UD PRN PO 01/31/17 22:30 03/02/17 22:29 Glucose (Glucose Chew Tab) 4-8 Tablets 4 Tabl... UD PRN PO 01/31/17 22:30 03/02/17 22:29 Dextrose (Dextrose 50% 50ML Syringe) 25-50ML OF 50% DW IV FOR... UD PRN IV 01/31/17 22:30 03/02/17 22:29 Glucagon (Glucagon Inj) 1 mg UD PRN SQ 01/31/17 22:30 03/02/17 22:29 Allopurinol (Zyloprim Tab) 300 mg QAM PO 02/01/17 09:00 03/03/17 08:59 02/03/17 07:52 300 MG Atorvastatin Calcium (Lipitor Tab) 80 mg DAILY PO 02/01/17 09:00 03/03/17 08:59 Future Hold 02/01/17 07:45 80 MG Calcium/Vitamin D (Caltrate Plus Tab) 1 tab QPM PO 02/01/17 21:00 03/03/17 20:59 Ferrous Sulfate (Feosol Tab) 325 mg QAM PO 02/01/17 09:00 03/03/17 08:59 02/03/17 07:50 325 MG Fish Oil ([place]-3 (Purified Fish Oil) Cap) 1 gm QAM PO 02/01/17 09:00 03/03/17 08:59 02/03/17 07:51 1 GM Folic Acid (Folvite Tab) 1 mg QAM PO 02/01/17 09:00 03/03/17 08:59 02/03/17 07:50 1 MG Levothyroxine Sodium (Synthroid Tab) 75 mcg DAILYBB PO 02/01/17 06:30 03/03/17 06:59 02/04/17 06:12 75 MCG Metoprolol Succinate (Toprol Xl Tab) 25 mg DAILY PO 02/01/17 09:00 03/03/17 08:59 02/03/17 07:52 25 MG Multivitamins/ Minerals (Multivitamin W/ Minerals Tab) 1 tab QAM PO 02/01/17 09:00 03/03/17 08:59 02/03/17 07:51 1 TAB Potassium Chloride (Klor-Con Tab) 20 meq DAILY PO 02/01/17 09:00 03/03/17 08:59 02/03/17 07:51 20 MEQ Insulin Aspart (novoLOG ASPART) SLIDING SCALE If C... ACHS SC 02/01/17 21:00 03/03/17 20:59 02/02/17 17:09 3 UNITS Tramadol HCl (Ultram Tab) 50 mg Q4H PRN PO 02/03/17 08:45 03/05/17 08:44 02/03/17 21:56 50 MG Docusate Sodium (coLACE CAP) 100 mg BID PO 02/03/17 09:00 03/05/17 08:59 02/03/17 10:00 100 MG Polyethylene (Miralax Powder Packet) 17 gm DAILY PO 02/03/17 09:00 03/05/17 08:59 02/03/17 10:01 17 GM Bisacodyl 5 mg 5 mg BID PRN PO 02/03/17 08:45 03/05/17 08:44 Ciprofloxacin/ Dextrose 400 mg/ Prmx 200 ml @ 100 mls/hr Q12 IV 02/03/17 21:00 02/13/17 20:59 02/04/17 08:26 100 MLS/HR Metronidazole/Prmx (Flagyl / Nss/ Premixed Nss) 100 ml @ 100 mls/hr Q8H IV 02/03/17 14:30 02/13/17 14:29 02/04/17 06:12 100 MLS/HR Hydromorphone HCl 0.5 mg 0.5 mg Q6H PRN IV 02/03/17 22:00 02/17/17 21:59 Sodium Chloride (1/2 Nss 1000ml) 1,000 ml @ 80 mls/hr [id number] IV 02/03/17 22:45 03/05/17 22:44 02/03/17 23:38 80 MLS/HR Ioversol 100 ml 100 ml UD PRN IV 02/04/17 00:00 02/08/17 00:00 Pantoprazole Sodium/Syringe (Protonix Inj/ Syringe) 10 ml @ 5 mls/min BID IV 02/04/17 21:00 03/06/17 20:59 Indomethacin 100 mg 100 mg TODAY@1000 [place] 02/04/17 10:00 02/04/17 18:00 Erythromycin Lactobionate/ Sodium Chloride (Erythrocin IV/ Nss 250ml) 255 ml @ 250 mls/hr 1030 IV 02/04/17 10:30 02/04/17 14:00 Objective Vital Signs Date Time Temp Pulse Resp B/P Pulse Ox O2 Delivery O2 Flow Rate FiO2 02/04/17 10:10 36.6 100 16 123/77 99 2.0 02/04/17 09:55 37.0 72 16 98/60 99 2.0 02/04/17 09:38 36.3 75 18 93/56 99 02/04/17 08:00 Nasal Cannula 2.0 02/04/17 07:10 36.9 80 18 92/56 99 Nasal Cannula 2.0 02/04/17 00:01 Nasal Cannula 2.0 02/03/17 23:23 36.5 78 18 134/71 97 Nasal Cannula 2.0 02/03/17 16:00 97 Room Air Physical Exam General Appearance: + mild distress Eyes: normal inspection, PERRL, EOMI Neck: supple, no JVD, trachea midline Respiratory/Chest: normal breath sounds, no respiratory distress, no accessory muscle use Cardiovascular: regular rate, rhythm, no gallop, no murmur Abdomen: soft, + tenderness (LLQ, upper quadrants ) Extremities: normal inspection, no pedal edema, no calf tenderness Neurologic/Psych: alert, normal mood/affect, oriented x 3 Skin: + jaundice Laboratory Results Last 24 Hours Test 02/03/17 11:18 02/03/17 16:51 02/03/17 19:47 02/03/17 22:05 Bedside Glucose 134 mg/dl 110 mg/dl 147 mg/dl Hemoglobin 7.7 g/dL Hematocrit 23.1 % Prothrombin Time 12.0 SECONDS Prothromb Time International Ratio 1.1 Activated Partial Thromboplast Time 87.0 SECONDS Partial Thromboplastin Ratio 3.3 Sodium Level 146 mmol/L Potassium Level 3.9 mmol/L Chloride Level 115 mmol/L Carbon Dioxide Level 18 mmol/L Anion Gap 13.0 mmol/L Blood Urea Nitrogen 20 mg/dl Creatinine 0.88 mg/dl Est Creatinine Clear Calc Drug Dose 39.5 ml/min Estimated GFR () 69.9 Estimated GFR (Non- 60.3 BUN/Creatinine Ratio 22.6 Random Glucose 125 mg/dl Calcium Level 7.8 mg/dl Magnesium Level 1.7 mg/dl Total Bilirubin 4.3 mg/dl Aspartate Amino Transf (AST/SGOT) 614 U/L Alanine Aminotransferase (ALT/SGPT) 377 U/L Alkaline Phosphatase 866 U/L Troponin I 0.031 ng/ml Total Protein 5.6 gm/dl Albumin 1.9 gm/dl Globulin 3.7 gm/dl Albumin/Globulin Ratio 0.5 Lipase 1388 U/L Test 02/04/17 05:00 02/04/17 07:41 White Blood Count 10.59 K/uL Red Blood Count 2.27 M/uL Hemoglobin 7.2 g/dL Hematocrit 21.5 % Mean Corpuscular Volume 94.7 fL Mean Corpuscular Hemoglobin 31.7 pg Mean Corpuscular Hemoglobin Concent 33.5 g/dl RDW Standard Deviation 55.0 fL RDW Coefficient of Variation 15.9 % Platelet Count 287 K/uL Mean Platelet Volume 10.8 fL Sodium Level 141 mmol/L Potassium Level 3.8 mmol/L Chloride Level 113 mmol/L Carbon Dioxide Level 20 mmol/L Anion Gap 8.0 mmol/L Blood Urea Nitrogen 14 mg/dl Creatinine 0.80 mg/dl Est Creatinine Clear Calc Drug Dose 43.5 ml/min Estimated GFR () 78.5 Estimated GFR (Non- 67.7 BUN/Creatinine Ratio 17.8 Random Glucose 144 mg/dl Calcium Level 7.4 mg/dl Magnesium Level 2.4 mg/dl Total Bilirubin 4.6 mg/dl Aspartate Amino Transf (AST/SGOT) 586 U/L Alanine Aminotransferase (ALT/SGPT) 371 U/L Alkaline Phosphatase 926 U/L Troponin I 0.029 ng/ml Total Protein 5.5 gm/dl Albumin 1.9 gm/dl Globulin 3.6 gm/dl Albumin/Globulin Ratio 0.5 Bedside Glucose 123 mg/dl Assessment and Plan Pt is 86 y/o pt admitted w diverticulitis and cholangitis. She underwent ERCP on 02/01/17 - LFTs not improving, HIDA showed no tracer flowing through. Her Hgb also down from 11 to 7, and she had episodes of bloody emesis w dark blood in stools. Discussed w Dr. Vann - suspects she may have post sphincterectomy bleeding and clot obstructing her biliary stent - Continue current antibx - Monitor H/H. Spoke w hospitalist and will give pt blood transfusion - NPO for repeat ERCP w biliary stent removal by Dr. Vann this afternoon. Indomethacin for premed ordered. Pls administer Erythromycin 250mg IV x 1 to clear stomach of blood. I saw and evaluated the patient - she appears to have early stent occlusion and likely a post-sphincterotomy bleed based on the recent changes. I have discussed the risks of ERCP and EGD to include bleeding, infection, perforation , pain, infection, and need for follow-up studies. Plan ERCP / EGD today (will likely change the stent and treat the sphincterotomy site ) avoid nsaids if possible continue a 2 week course of antibiotics.
[2017-02-04] MEDS: SODIUM CHLORIDE 0.45% 1000ML 1,000 ML IV SCH (10:50)
[2017-02-04 15:01] LABS: HEMATOCRIT 25.7 % (37-47); MEAN CELL VOLUME 91.1 fL (80-100); MEAN CORPUSCULAR HEMOGLOBIN 31.2 pg (25-34); MEAN PLATELET VOLUME 10.5 fL (7.4-10.4); PLATELET COUNT 245 K/uL (130-400); RED BLOOD COUNT 2.82 M/uL (4.2-5.4); WHITE BLOOD COUNT 8.25 K/uL (4.8-10.8)
[2017-02-04 15:04] LABS: MEAN CORPUSCULAR HGB CONC 34.2 g/dl (32-36)
[2017-02-04] MEDS ORDERED: FENTANYL CITRATE INJ 50 MCG/1 ML 2 ML VIAL ONE (15:50)
[2017-02-04] MEDS ORDERED: ONDANSETRON INJ 2 MG/ML 2 ML VIAL ONE (16:24)
[2017-02-04] MEDS ORDERED: PROPOFOL IV EMULSION 10 MG/ML 20 ML VIAL IV ONE (16:24)
[2017-02-04] MEDS ORDERED: LIDOCAINE HCL 2% 2 ML VIAL (20MG/ML) ONE (16:24)
[2017-02-04] MEDS ORDERED: SUCCINYLCHOLINE CHLORIDE 20 MG/ML 10 ML VIAL IV ONE (16:24)
[2017-02-04] MEDS ORDERED: FENTANYL CITRATE INJ 50 MCG/1 ML 2 ML VIAL IV PRN (16:30)
[2017-02-04] MEDS ORDERED: ONDANSETRON INJ 2 MG/ML 2 ML VIAL IV PRN (16:30)
[2017-02-04] MEDS ORDERED: EpHEDrine SULFATE INJ 50 MG/ML AMP IV PRN (16:30)
[2017-02-04] MEDS ORDERED: ATROPINE SULFATE 0.1 MG/ML 5ML SYR IV PRN (16:30)
--- NOTE | 2017-02-04 16:59 | DIAGNOSTIC IMAGING REPORT ---
ERCP BILIARY DUCTAL CLINICAL HISTORY: Common bile duct obstruction. COMPARISON STUDY: ERCP 02/01/2017. FLUOROSCOPY TIME: 52 seconds. 4 fluoroscopic spot images.. FINDINGS: The endoscope is seen at the second portion of the duodenum. A guidewire was placed in the common bile duct. The indwelling common bile duct stent was removed. This is replaced by metallic common bile duct stent which is patent. The main pancreatic duct stent is also unchanged in position. IMPRESSION: Fluoroscopy provided for ERCP and exchange of a common bile duct stent. Electronically signed by: Alan Hernandez M.D. 02/04/2017 4:57 PM Dictated Date/Time: 02/04/2017 4:55 PM
[2017-02-04] MEDS ORDERED: PANTOPRAZOLE IV ONE (17:15)
[2017-02-04] MEDS ORDERED: DEXTROSE 5% IV ONE (17:15)
--- NOTE | 2017-02-04 17:15 | GI REPORT ---
Procedure Date: 02/04/2017 3:35 PM Procedure: ERCP Indications: Suspected post-sphincterotomy bleeding, Post endoscopic sphincterotomy liver function test abnormalities suggestive of biliary stent occlusion. Medicines: General Anesthesia Complications: No immediate complications. Estimated blood loss: Minimal. Estimated Blood Loss: Estimated blood loss was minimal. Procedure: Pre-Anesthesia Assessment: - Prior to the procedure, a History and Physical was performed, and patient medications, allergies and sensitivities were reviewed. The patient's tolerance of previous anesthesia was reviewed. - The risks and benefits of the procedure and the sedation options and risks were discussed with the patient. All questions were answered and informed consent was obtained. - Patient identification and proposed procedure were verified prior to the procedure by the physician, the nurse and the food technologist. The procedure was verified in the procedure room. - Pre-procedure physical examination revealed no contraindications to sedation. - ASA Grade Assessment: III - A patient with severe systemic disease. - After reviewing the risks and benefits, the patient was deemed in satisfactory condition to undergo the procedure. - The anesthesia plan was to use general anesthesia. - Immediately prior to administration of medications, the patient was re-assessed for adequacy to receive sedatives. - The heart rate, respiratory rate, oxygen saturations, blood pressure, adequacy of pulmonary ventilation, and response to care were monitored throughout the procedure. - The physical status of the patient was re-assessed after the procedure. After obtaining informed consent, the scope was passed under direct vision. Throughout the procedure, the patient's blood pressure, pulse, and oxygen saturations were monitored continuously. The SCOPE was introduced through the mouth, and advanced to the duodenum and used to inject contrast into the bile duct. The ERCP was accomplished without difficulty. The patient tolerated the procedure well. Findings: A container shop welder film of the abdomen was obtained. Surgical clips, consistent with previous cholecystectomy, were seen in the area of the right upper quadrant of the abdomen. One stent ending in the main bile duct and ventral pancreatic duct in the head of the pancreas was seen. One stent ending in the main pancreatic duct was seen. Upon arriving at the ampulla, blood was coming from the major papilla (likely region of prior sphicnterotomy). The ampulla and biliary stent could not initally be seen due to clot burden. The bile duct was deeply cannulated with the short-tip traction sphincterotome (Omni 35) and 0.035 in Acrobat guidewire during the first attempt. Contrast was injected. I personally interpreted the bile duct images. Contrast extended to the bifurcation showing no obvious filling defects. One stent was removed from the biliary tree using a 8.5 to 15 mm to extract the stent from the clot and then a snare. The periampullary area was successfully injected with 5 mL of a 1:10,000 solution of epinephrine through the ERCP scope for hemostasis in several location around the ampullary region. Despite a careful examination and manipulation of the overlying clot with the sphinctertome I could not identify the bleeding site. Therefore, one 10 Fr by 6 cm covered metal stent ([employer] Wallflex Rx, Ref [id number], Lot [id number]) was placed 5.5 cm into the common bile duct to provide tamponade to the sphincterotomy sphincterotomy site. This resulted in cessation of ozzing. Bile flowed through the stent. The stent was in good position. As the upper margin of the sphincterotomy could then be seen, coagulation for hemostasis using a 7 Fr multipolar silver probe through the ERCP scope was successful. No further active bleeding or oozing was noted. A standard esophagogastroduodenoscopy scope was used for the examination of the upper gastrointestinal tract. The scope was passed under direct vision through the upper GI tract. The examined esophagus was normal. Diffuse moderate inflammation characterized by erythema and granularity was found in the entire examined stomach. The duodenal bulb was normal. The total fluoroscopy exposure time was 52 seconds. The endoscope was withdrawn from the patient. Impression: - Normal esophagus. - Gastritis. - Normal duodenal bulb. - One stent was removed from the biliary tree. - The upper margin of the sphincterotomy was successfully injected and treated with cautery due to active bleeding (possibly related to NSAID use and Fish oil). - One covered metal stent was placed into the CBD (to provide tamponade). Recommendation: - Avoid aspirin and nonsteroidal anti-inflammatory medicines for 1 week. - Would also stop fish oil as this may have contributed to her post-sphincterotomy bleeding. - Clear liquid diet today. - Use broad spectrum antibiotics for 2 weeks. - Give Protonix (pantoprazole): initiate therapy with 80 mg IV bolus, then 8 mg/hr IV by continuous infusion for 3 days. Elsa Vann D.O. Elsa Vann DO 02/04/2017 5:14:35 PM This report has been signed electronically. Note Initiated On: 02/04/2017 3:35 PM I attest to the content of the Intraoperative Record and orders documented therein, exceptions below
--- NOTE | 2017-02-04 17:17 | [facility] Post Operative Brief Note ---
Immediate Operative Summary Operative Date Feb 04, 2017. Pre-Operative Diagnosis Biliary stend occlusion and upper GI bleeding. Post-Operative Diagnosis Post-biliary sphincterotomy bleeding / stent occlusion Procedure(s) Performed Endoscopic Retrograde Cholangiopancreatogram and upper endoscopy, stent removal , covered metal stent placement, epinephrine and cautery treatment for bleeding. Surgeon Dr. Vann Wound/Ostomy Nurse Surgeon(s) None Estimated Blood Loss 0 ml from the procedure Findings Active bleeding noted from sphincterotomy site Plastic biliary stent removed Sphincterotomy site treated with epinephrine injection / cautery 1 covered metal stent placed into the biliary tree (tamponade) Specimens None Drains No external drains Anesthesia General Complication(s) None Disposition Surgical ICU
--- NOTE | 2017-02-04 17:31 | Anesthesiology Progress Note ---
Anesthesia Post Op Note Date & Time Feb 04, 2017 at 17:30 Vital Signs Pain Intensity: 0 Vital Signs Past 12 Hours Date Time Temp Pulse Resp B/P Pulse Ox O2 Delivery O2 Flow Rate FiO2 02/04/17 17:20 74 18 153/64 97 Nasal Cannula 2 02/04/17 17:10 68 16 168/72 100 Mask 10 02/04/17 17:00 67 17 163/66 100 Mask 10 02/04/17 16:51 36.2 68 18 148/57 100 Mask 10 02/04/17 15:38 36.5 77 16 133/77 98 2.0 02/04/17 15:20 36.5 16 133/77 98 Nasal Cannula 2 02/04/17 14:28 36.5 79 20 117/71 99 2.0 02/04/17 13:54 36.7 68 16 106/67 100 2.0 02/04/17 13:25 36.5 70 16 115/65 100 2.0 02/04/17 13:10 36.6 70 16 116/64 99 2.0 02/04/17 12:55 36.5 76 18 124/70 02/04/17 12:32 36.6 75 16 112/70 97 2.0 02/04/17 11:40 37.1 74 18 106/65 99 2.0 02/04/17 11:31 36.9 80 20 97/55 99 Nasal Cannula 2.0 02/04/17 10:40 36.9 77 20 97/55 99 02/04/17 10:10 36.6 100 16 123/77 99 2.0 02/04/17 09:55 37.0 72 16 98/60 99 2.0 02/04/17 09:38 36.3 75 18 93/56 99 02/04/17 08:00 Nasal Cannula 2.0 02/04/17 07:10 36.9 80 18 92/56 99 Nasal Cannula 2.0 Notes Mental Status: alert / awake / arousable, participated in evaluation Pt Amnestic to Procedure: Yes Nausea / Vomiting: adequately controlled Pain: adequately controlled Airway Patency, RR, SpO2: stable & adequate BP & HR: stable & adequate Hydration State: stable & adequate Anesthetic Complications: no major complications apparent
[2017-02-04] MEDS: PANTOprazole INJ 40 MG in DEXTROSE 5% 100ML IV SCH ×2 (18:26→22:34)
[2017-02-04] MEDS ORDERED: PANTOprazole INJ 40 MG in SYRINGE 0 ML IV SCH (21:00)
[2017-02-04] MEDS: CALCIUM 600MG + VIT D 400 IU TAB PO SCH (21:00)
[2017-02-05] VITALS: O2SAT 99
[2017-02-05] MEDS: METRONIDAZOLE / NSS 500 MG in PREMIXED NSS 100 ML IV SCH ×3 (00:01→14:15)
[2017-02-05] MEDS: SODIUM CHLORIDE 0.45% 1000ML 1,000 ML IV SCH (00:02)
[2017-02-05 00:30] VITALS: BP 129/78; PULSE 89; TEMP 36.7; O2SAT 99
[2017-02-05] MEDS: PANTOprazole INJ 40 MG in DEXTROSE 5% 100ML IV SCH ×5 (03:15→23:22)
[2017-02-05] MEDS: ONDANSETRON INJ 2 MG/ML 2 ML VIAL IV PRN (04:51)
[2017-02-05] MEDS: LEVOTHYROXINE 75 MCG TAB PO SCH (06:09)
[2017-02-05] MEDS: INSULIN ASPART 100 UNITS/ML 3 ML PEN SC SCH ×4 (06:30→21:00)
[2017-02-05 06:55] LABS: HEMATOCRIT 28.5 % (37-47); MEAN CELL VOLUME 89.9 fL (80-100); MEAN CORPUSCULAR HEMOGLOBIN 30.6 pg (25-34); PLATELET COUNT 268 K/uL (130-400); RED BLOOD COUNT 3.17 M/uL (4.2-5.4); WHITE BLOOD COUNT 9.85 K/uL (4.8-10.8)
[2017-02-05 07:20] VITALS: BP 132/74; PULSE 73; TEMP 36.9; O2SAT 98
[2017-02-05] MEDS: DOCUSATE SODIUM 100 MG CAP PO SCH ×2 (07:42→21:00)
[2017-02-05] MEDS: POLYETHYLENE (MIRALAX) 17 GM PACK PO SCH (07:42)
[2017-02-05] MEDS: ALLOPURINOL 300 MG TAB PO SCH (07:44)
[2017-02-05] MEDS: FERROUS SULFATE 325 MG TAB PO SCH (07:45)
[2017-02-05] MEDS: POTASSIUM CHLORIDE 20 MEQ TABCR PO SCH (07:45)
[2017-02-05] MEDS: CEROVITE ADV FORMULA TAB PO SCH (07:45)
[2017-02-05] MEDS: METOPROLOL SUCC 25MG EXT REL TAB PO SCH (07:45)
[2017-02-05 08:21] LABS: ALB/GLOB RATIO 0.5 (0.9-2); BUN/CREATININE RATIO 17.3 (10-20); CALCIUM 7.6 mg/dl (8.5-10.1); CREATININE 0.81 mg/dl (0.60-1.20); POTASSIUM 3.1 mmol/L (3.5-5.1)
[2017-02-05] MEDS: CIPROFLOXACIN / D5W 400 MG in PREMIXED IN D5W 200 ML IV SCH ×2 (08:30→21:36)
--- NOTE | 2017-02-05 09:04 | Anesthesiology Progress Note ---
Anesthesia Post Op Note Date & Time Feb 05, 2017 at 09:02 Vital Signs Pain Intensity: 0.0 Vital Signs Past 12 Hours Date Time Temp Pulse Resp B/P Pulse Ox O2 Delivery O2 Flow Rate FiO2 02/05/17 07:20 36.9 73 18 132/74 98 Nasal Cannula 2.0 02/05/17 00:30 36.7 89 20 129/78 99 Nasal Cannula 2.0 02/05/17 00:00 99 Nasal Cannula 2.0 02/04/17 22:24 Nasal Cannula 2.0 Notes Mental Status: alert / awake / arousable, participated in evaluation Pt Amnestic to Procedure: Yes Nausea / Vomiting: adequately controlled Pain: adequately controlled Airway Patency, RR, SpO2: stable & adequate BP & HR: stable & adequate Hydration State: stable & adequate Anesthetic Complications: no major complications apparent
[2017-02-05] MEDS ORDERED: POTASSIUM CHLORIDE 20 MEQ TABCR PO ONE (10:45)
--- NOTE | 2017-02-05 11:11 | Progress Note ---
Medicine Progress Note Date & Time of Visit: Feb 05, 2017 at 10:57. Subjective seen resting in bedside chair states she still feels bloated, has LLQ pain- about the same as yesterday, mild nausea, (+) flatus denies chest pain, dyspnea, palpitations no other symptoms Objective Last 8 Hrs Date Time Temp Pulse Resp B/P Pulse Ox O2 Delivery O2 Flow Rate FiO2 02/05/17 08:00 Nasal Cannula 2.0 02/05/17 07:20 36.9 73 18 132/74 98 Nasal Cannula 2.0 Physical Exam: General- oriented x 3, not in distress, speaks in sentences with no effort Head- atraumatic Eyes- EOMI, anicteric ENT-dry oral mucosa Neck- supple, no JVD, no adenopathy, no thyromegaly Lungs- clear to auscultation bilaterally, no rales/wheezes Heart- regular rhythm; no murmur,normal rate Abdomen- hypoactive bowel sounds, non distended, soft, (+) moderate tenderness on the Left upper and Left lower quadrants Extremities- no pretibial edema, no calf tenderness; peripheral pulses intact Neuro- alert, oriented x 3; no gross focal deficits Skin- warm & dry Laboratory Results: Last 24 Hours Test 02/04/17 11:14 02/04/17 14:40 02/04/17 15:23 02/04/17 16:58 Bedside Glucose 166 mg/dl 125 mg/dl 130 mg/dl White Blood Count 8.25 K/uL Red Blood Count 2.82 M/uL Hemoglobin 8.8 g/dL Hematocrit 25.7 % Mean Corpuscular Volume 91.1 fL Mean Corpuscular Hemoglobin 31.2 pg Mean Corpuscular Hemoglobin Concent 34.2 g/dl RDW Standard Deviation 51.8 fL RDW Coefficient of Variation 15.5 % Platelet Count 245 K/uL Mean Platelet Volume 10.5 fL Test 02/04/17 20:57 02/05/17 06:20 02/05/17 07:34 Bedside Glucose 150 mg/dl 140 mg/dl White Blood Count 9.85 K/uL Red Blood Count 3.17 M/uL Hemoglobin 9.7 g/dL Hematocrit 28.5 % Mean Corpuscular Volume 89.9 fL Mean Corpuscular Hemoglobin 30.6 pg Mean Corpuscular Hemoglobin Concent 34.0 g/dl RDW Standard Deviation 54.1 fL RDW Coefficient of Variation 16.6 % Platelet Count 268 K/uL Mean Platelet Volume 11.0 fL Nucleated RBC Absolute Count (auto) 0.02 K/uL Nucleated Red Blood Cells % 0.2 % Sodium Level 142 mmol/L Potassium Level 3.1 mmol/L Chloride Level 113 mmol/L Carbon Dioxide Level 19 mmol/L Anion Gap 10.0 mmol/L Blood Urea Nitrogen 14 mg/dl Creatinine 0.81 mg/dl Est Creatinine Clear Calc Drug Dose 42.9 ml/min Estimated GFR () 77.3 Estimated GFR (Non- 66.7 BUN/Creatinine Ratio 17.3 Random Glucose 145 mg/dl Calcium Level 7.6 mg/dl Total Bilirubin 6.2 mg/dl Aspartate Amino Transf (AST/SGOT) 466 U/L Alanine Aminotransferase (ALT/SGPT) 334 U/L Alkaline Phosphatase 1118 U/L Total Protein 5.9 gm/dl Albumin 2.0 gm/dl Globulin 3.9 gm/dl Albumin/Globulin Ratio 0.5 Assessment & Plan 86 year old female with DM, HTN presenting with abdominal pain CHOLANGITIS, PAPILLARY STENOSIS, S/P PANCREATIC AND CBD STENT PLACEMENTT -S/P ERCP on 02/01/17- Biliary papillary stenosis, spinchterotomy performed, Bile duct swept with sludge and bile, Pancreatic duct- 1 stent placed, Bile duct - 1 stent placed. Plan was to remove stent in 6 weeks, - 02/03: (+) hematemesis, increasing LFTs CT abd/pelvis - ? ascending cholangitis, however, no fever, RUQ tenderness +. No bile duct dilation noted. -IV Zosyn x 2 ---> Changed to IV Cipro/Flagyl - 02/04: s/p repeat ERCP, Cauterization of Bleeding Papillary Stenosis site, replacement of Pancreatic Duct Stent - Tot Reji and Alk phos increased today AST/ALT improved slightly - maintain on clear liquids Protonix drip IV fluids - appreciate GI consult ACUTE LEFT SIGMOID (MILD) DIVERTICULITIS WITH BLEEDING: -CT abd/pelvis on admission + mild sigmoid diverticulitis. No evidence of abscess or perforation - remains afebrile, no leukocytosis -IV Antibiotics- Zosyn x 2 days ---> Changed to IV Cipro/Flagyl Day 2 as above per GI ACUTE BLOOD LOSS ANEMIA - Likely diverticular bleeding - s/p 2 units pRBC Hg improved to 9 CHEST PAIN AND DYSPNEA, RESOLVED - Likely related to above - Had an episode of chest pain/SOB -CT chest was done- no acute abnormalities noted -EKG- no sig ischemic changes, Troponin negative IPMN - monitor as outpatient possible repeat CT in 1 year CKD STAGE 3 - stable WELL-CONTROLLED DM 2 -recent A1C 5.8 -hold metformin - ISS -monitor BSG AC HS HYPOTHYROIDISM -cont levothyroxine HTN -BP stable -cont metoprolol DYSLIPIDEMIA -Hold high-dose statin due to elevated LFTs PAIN CONTROL -Allergic to morphine/Oxycodone -IV Dilaudid 0.5 mg q 6 hours prn tolerating it, but using it much DVT PROPHYLAXIS Heparin SQ - hold due to bleeding. SCDS/TEDS CODE STATUS -DNR per discussion with patient upon admission DISPO Medical mx in progress- PT/OT to be done prior to discharge. Expected discharge home when stable- lives with son Current Inpatient Medications: Current Inpatient Medications Medications (Trade) Dose Ordered Sig/Faith Route Start Time Stop Time Status Last Admin Dose Admin Heparin Sodium (Porcine) (Heparin Sq 5000 Unit/0.5ml) 5,000 unit Q8H SQ 02/01/17 06:00 03/03/17 05:59 Future Hold 02/03/17 13:48 5,000 UNIT Ondansetron HCl (Zofran Inj) 4 mg Q6H PRN IV 01/31/17 22:15 03/02/17 22:14 02/05/17 04:51 4 MG Glucose (Glucose 40% Gel) 15-30 GRAMS 15 GRAMS... UD PRN PO 01/31/17 22:30 03/02/17 22:29 Glucose (Glucose Chew Tab) 4-8 Tablets 4 Tabl... UD PRN PO 01/31/17 22:30 03/02/17 22:29 Dextrose (Dextrose 50% 50ML Syringe) 25-50ML OF 50% DW IV FOR... UD PRN IV 01/31/17 22:30 03/02/17 22:29 Glucagon (Glucagon Inj) 1 mg UD PRN SQ 01/31/17 22:30 03/02/17 22:29 Allopurinol (Zyloprim Tab) 300 mg QAM PO 02/01/17 09:00 03/03/17 08:59 02/05/17 07:44 300 MG Atorvastatin Calcium (Lipitor Tab) 80 mg DAILY PO 02/01/17 09:00 03/03/17 08:59 Future Hold 02/01/17 07:45 80 MG Calcium/Vitamin D (Caltrate Plus Tab) 1 tab QPM PO 02/01/17 21:00 03/03/17 20:59 Ferrous Sulfate (Feosol Tab) 325 mg QAM PO 02/01/17 09:00 03/03/17 08:59 02/05/17 07:45 325 MG Folic Acid (Folvite Tab) 1 mg QAM PO 02/01/17 09:00 03/03/17 08:59 02/05/17 07:44 1 MG Levothyroxine Sodium (Synthroid Tab) 75 mcg DAILYBB PO 02/01/17 06:30 03/03/17 06:59 02/05/17 06:09 75 MCG Metoprolol Succinate (Toprol Xl Tab) 25 mg DAILY PO 02/01/17 09:00 03/03/17 08:59 02/05/17 07:45 25 MG Multivitamins/ Minerals (Multivitamin W/ Minerals Tab) 1 tab QAM PO 02/01/17 09:00 03/03/17 08:59 02/05/17 07:45 1 TAB Potassium Chloride (Klor-Con Tab) 20 meq DAILY PO 02/01/17 09:00 03/03/17 08:59 02/05/17 07:45 20 MEQ Insulin Aspart (novoLOG ASPART) SLIDING SCALE If C... ACHS SC 02/01/17 21:00 03/03/17 20:59 02/04/17 12:31 1 UNITS Tramadol HCl (Ultram Tab) 50 mg Q4H PRN PO 02/03/17 08:45 03/05/17 08:44 02/03/17 21:56 50 MG Docusate Sodium (coLACE CAP) 100 mg BID PO 02/03/17 09:00 03/05/17 08:59 02/03/17 10:00 100 MG Polyethylene (Miralax Powder Packet) 17 gm DAILY PO 02/03/17 09:00 03/05/17 08:59 02/03/17 10:01 17 GM Bisacodyl 5 mg 5 mg BID PRN PO 02/03/17 08:45 03/05/17 08:44 Ciprofloxacin/ Dextrose 400 mg/ Prmx 200 ml @ 100 mls/hr Q12 IV 02/03/17 21:00 02/13/17 20:59 02/05/17 08:30 100 MLS/HR Metronidazole/Prmx (Flagyl / Nss/ Premixed Nss) 100 ml @ 100 mls/hr Q8H IV 02/03/17 14:30 02/13/17 14:29 02/05/17 06:09 100 MLS/HR Hydromorphone HCl 0.5 mg 0.5 mg Q6H PRN IV 02/03/17 22:00 02/17/17 21:59 02/04/17 18:46 0.5 MG Sodium Chloride (1/2 Nss 1000ml) 1,000 ml @ 80 mls/hr [id number] IV 02/03/17 22:45 03/05/17 22:44 02/05/17 00:02 80 MLS/HR Ioversol 100 ml 100 ml UD PRN IV 02/04/17 00:00 02/08/17 00:00 Pantoprazole Sodium/Dextrose (Protonix Inj/D5 100ml) 100 ml @ 20 mls/hr Q5H IV 02/04/17 17:30 03/06/17 17:29 02/05/17 08:29 20 MLS/HR Potassium Chloride (Klor-Con Tab) 40 meq ONE PO 02/05/17 10:45 03/07/17 10:44 UNV
[2017-02-05] MEDS: SODIUM CHLORIDE 0.9% 1000ML 1,000 ML IV SCH (11:47)
[2017-02-05 14:54] VITALS: BP 117/69; PULSE 74; TEMP 37.2; O2SAT 93
[2017-02-05 17:07] VITALS: BP 123/62; PULSE 66; O2SAT 98
[2017-02-05] MEDS ORDERED: SIMETHICONE 40 MG/0.6 ML 30ML PO ONE (17:20)
[2017-02-05] MEDS ORDERED: SIMETHICONE 40 MG/0.6 ML 30ML PO PRN (17:30)
[2017-02-05 17:46] LABS: HEMATOCRIT 26.7 % (37-47)
--- NOTE | 2017-02-05 18:24 | DIAGNOSTIC IMAGING REPORT ---
CHEST ONE VIEW PORTABLE CLINICAL HISTORY: Possible aspiration. COMPARISON STUDY: Chest CT February 04, 2017. FINDINGS: Lung volumes are normal. There is no pneumothorax or pleural effusion. Cardiac size is normal. Mediastinal contours are normal. No consolidation is identified. IMPRESSION: No acute cardiopulmonary findings. Electronically signed by: Andrés Caraballo M.D. 02/05/2017 6:22 PM Dictated Date/Time: 02/05/2017 6:21 PM
[2017-02-05 20:00] VITALS: O2SAT 99
[2017-02-05] MEDS: CALCIUM 600MG + VIT D 400 IU TAB PO SCH (21:00)
[2017-02-06] VITALS: O2SAT 99
[2017-02-06] MEDS: METRONIDAZOLE / NSS 500 MG in PREMIXED NSS 100 ML IV SCH ×4 (00:01→22:58)
[2017-02-06] MEDS: SODIUM CHLORIDE 0.9% 1000ML 1,000 ML IV SCH ×2 (00:02→14:12)
[2017-02-06 00:13] VITALS: BP 127/60; PULSE 68; TEMP 36.3; O2SAT 99
[2017-02-06] MEDS: PANTOprazole INJ 40 MG in DEXTROSE 5% 100ML IV SCH ×4 (04:27→19:20)
[2017-02-06] MEDS: LEVOTHYROXINE 75 MCG TAB PO SCH (06:03)
[2017-02-06] MEDS: INSULIN ASPART 100 UNITS/ML 3 ML PEN SC SCH ×4 (06:30→20:43)
[2017-02-06 07:08] LABS: BASO % 0.7 %; BASO ABS # 0.05 K/uL (0-0.2); EOS % 4.9 %; HEMATOCRIT 25.2 % (37-47); IG% 0.4 %; LYMPH % 17.2 %; LYMPH ABS # 1.31 K/uL (1.2-3.4); MEAN CELL VOLUME 89.4 fL (80-100); MEAN CORPUSCULAR HEMOGLOBIN 30.5 pg (25-34); MEAN CORPUSCULAR HGB CONC 34.1 g/dl (32-36); MEAN PLATELET VOLUME 10.7 fL (7.4-10.4); MONO % 6.7 %; NEUT % 70.1 %; PLATELET COUNT 270 K/uL (130-400); RED BLOOD COUNT 2.82 M/uL (4.2-5.4); WHITE BLOOD COUNT 7.62 K/uL (4.8-10.8)
[2017-02-06 07:35] LABS: COMPLETE YES; POIKILOCYTOSIS PRESENT
[2017-02-06] MEDS: POLYETHYLENE (MIRALAX) 17 GM PACK PO SCH (07:36)
[2017-02-06] MEDS: DOCUSATE SODIUM 100 MG CAP PO SCH (07:36)
[2017-02-06 07:40] VITALS: BP 102/63; PULSE 70; TEMP 36.5; O2SAT 97
[2017-02-06] MEDS: CEROVITE ADV FORMULA TAB PO SCH (07:45)
[2017-02-06] MEDS: METOPROLOL SUCC 25MG EXT REL TAB PO SCH (07:45)
[2017-02-06] MEDS: ALLOPURINOL 300 MG TAB PO SCH (07:45)
[2017-02-06] MEDS: POTASSIUM CHLORIDE 20 MEQ TABCR PO SCH (07:45)
[2017-02-06] MEDS: FERROUS SULFATE 325 MG TAB PO SCH (07:46)
[2017-02-06 08:05] LABS: BUN/CREATININE RATIO 7.3 (10-20); CALCIUM 7.9 mg/dl (8.5-10.1); CREATININE 0.72 mg/dl (0.60-1.20); POTASSIUM 3.2 mmol/L (3.5-5.1)
[2017-02-06] MEDS: CIPROFLOXACIN / D5W 400 MG in PREMIXED IN D5W 200 ML IV SCH ×2 (08:41→20:42)
[2017-02-06 11:17] VITALS: BP 109/61; PULSE 78; O2SAT 99
--- NOTE | 2017-02-06 14:43 | Progress Note ---
Medicine Progress Note Date & Time of Visit: Feb 06, 2017 at 14:36. Subjective seen with son Denis at bedside sitting up in bedside chair, comfortable, bright and alert states she still has bloating but no abdominal pain, no hematochezia diarrhea is less denies chest pain, dyspnea, dizziness, nausea no other symptoms Objective Last 8 Hrs Date Time Temp Pulse Resp B/P Pulse Ox O2 Delivery O2 Flow Rate FiO2 02/06/17 11:17 78 99 02/06/17 08:00 Nasal Cannula 2.0 02/06/17 07:40 36.5 70 16 102/63 97 Physical Exam: General- oriented x 3, not in distress, speaks in sentences with no effort, no acc muscle use Eyes- anicteric Neck- supple, no JVD Lungs- clear breath sounds bilaterally Heart- normal rate, regular rhythm; no murmurs Abdomen- normal bowel sounds, non distended, soft, no tenderness on the Left upper and Left lower quadrants Extremities- no pretibial edema, no calf tenderness Neuro- alert, oriented x 3; no gross focal deficits Skin- warm & dry Laboratory Results: Last 24 Hours Test 02/05/17 16:10 02/05/17 16:18 02/05/17 17:29 02/05/17 20:41 Potassium Level 3.7 mmol/L Bedside Glucose 129 mg/dl 139 mg/dl Hemoglobin 9.1 g/dL Hematocrit 26.7 % Test 02/06/17 06:30 02/06/17 07:32 02/06/17 11:17 White Blood Count 7.62 K/uL Red Blood Count 2.82 M/uL Hemoglobin 8.6 g/dL Hematocrit 25.2 % Mean Corpuscular Volume 89.4 fL Mean Corpuscular Hemoglobin 30.5 pg Mean Corpuscular Hemoglobin Concent 34.1 g/dl Platelet Count 270 K/uL Mean Platelet Volume 10.7 fL Neutrophils (%) (Auto) 70.1 % Lymphocytes (%) (Auto) 17.2 % Monocytes (%) (Auto) 6.7 % Eosinophils (%) (Auto) 4.9 % Basophils (%) (Auto) 0.7 % Neutrophils # (Auto) 5.35 K/uL Lymphocytes # (Auto) 1.31 K/uL Monocytes # (Auto) 0.51 K/uL Eosinophils # (Auto) 0.37 K/uL Basophils # (Auto) 0.05 K/uL RDW Standard Deviation 52.6 fL RDW Coefficient of Variation 16.2 % Immature Granulocyte % (Auto) 0.4 % Immature Granulocyte # (Auto) 0.03 K/uL Nucleated RBC Absolute Count (auto) 0.03 K/uL Nucleated Red Blood Cells % 0.3 % Poikilocytosis PRESENT Sodium Level 145 mmol/L Potassium Level 3.2 mmol/L Chloride Level 117 mmol/L Carbon Dioxide Level 19 mmol/L Anion Gap 9.0 mmol/L Blood Urea Nitrogen 5 mg/dl Creatinine 0.72 mg/dl Est Creatinine Clear Calc Drug Dose 48.3 ml/min Estimated GFR () 89.1 Estimated GFR (Non- 76.9 BUN/Creatinine Ratio 7.3 Random Glucose 110 mg/dl Calcium Level 7.9 mg/dl Total Bilirubin 3.1 mg/dl Direct Bilirubin 2.6 mg/dl Aspartate Amino Transf (AST/SGOT) 270 U/L Alanine Aminotransferase (ALT/SGPT) 249 U/L Alkaline Phosphatase 1044 U/L Total Protein 5.6 gm/dl Albumin 1.9 gm/dl Bedside Glucose 113 mg/dl 148 mg/dl Assessment & Plan 86 year old female with DM, HTN presenting with abdominal pain CHOLANGITIS, PAPILLARY STENOSIS, S/P PANCREATIC AND CBD STENT PLACEMENTT -S/P ERCP on 02/01/17- Biliary papillary stenosis, spinchterotomy performed, Bile duct swept with sludge and bile, Pancreatic duct- 1 stent placed, Bile duct - 1 stent placed. Plan was to remove stent in 6 weeks, - 02/03: (+) hematemesis, increasing LFTs CT abd/pelvis - ? ascending cholangitis, however, no fever, RUQ tenderness +. No bile duct dilation noted. -IV Zosyn x 2 ---> Changed to IV Cipro/Flagyl - 02/04: s/p repeat ERCP, Cauterization of Bleeding Papillary Stenosis site, replacement of Pancreatic Duct Stent - LFTs improving afebrile, no leukocytosis - advance to full liquids continue Cipro and Metro, Protonix drip IV fluids - appreciate GI consult ACUTE LEFT SIGMOID (MILD) DIVERTICULITIS WITH BLEEDING: -CT abd/pelvis on admission + mild sigmoid diverticulitis. No evidence of abscess or perforation - remains afebrile, no leukocytosis -IV Antibiotics- Zosyn x 2 days ---> Changed to IV Cipro/Flagyl Day 2\3 as above per GI ACUTE BLOOD LOSS ANEMIA - Likely diverticular bleeding - s/p 2 units pRBC Hg improved to 9, now 8.6 monitor CHEST PAIN AND DYSPNEA, RESOLVED - Likely related to above - Had an episode of chest pain/SOB -CT chest was done- no acute abnormalities noted -EKG- no sig ischemic changes, Troponin negative IPMN - monitor as outpatient possible repeat CT in 1 year CKD STAGE 3 - stable WELL-CONTROLLED DM 2 -recent A1C 5.8 -hold metformin - ISS -monitor BSG AC HS HYPOTHYROIDISM -cont levothyroxine HTN -BP stable -cont metoprolol DYSLIPIDEMIA -Hold high-dose statin due to elevated LFTs PAIN CONTROL -Allergic to morphine/Oxycodone -IV Dilaudid 0.5 mg q 6 hours prn tolerating it, but using it much DVT PROPHYLAXIS Heparin SQ - hold due to bleeding. SCDS/TEDS CODE STATUS -DNR per discussion with patient upon admission DISPO Medical mx in progress- PT/OT eval in progress discussed with son Denis, he is agreeable with plan of care, also ok with patient going to SNF/Rehab if necessary Current Inpatient Medications: Current Inpatient Medications Medications (Trade) Dose Ordered Sig/Faith Route Start Time Stop Time Status Last Admin Dose Admin Heparin Sodium (Porcine) (Heparin Sq 5000 Unit/0.5ml) 5,000 unit Q8H SQ 02/01/17 06:00 03/03/17 05:59 Future Hold 02/03/17 13:48 5,000 UNIT Ondansetron HCl (Zofran Inj) 4 mg Q6H PRN IV 01/31/17 22:15 03/02/17 22:14 02/05/17 04:51 4 MG Glucose (Glucose 40% Gel) 15-30 GRAMS 15 GRAMS... UD PRN PO 01/31/17 22:30 03/02/17 22:29 Glucose (Glucose Chew Tab) 4-8 Tablets 4 Tabl... UD PRN PO 01/31/17 22:30 03/02/17 22:29 Dextrose (Dextrose 50% 50ML Syringe) 25-50ML OF 50% DW IV FOR... UD PRN IV 01/31/17 22:30 03/02/17 22:29 Glucagon (Glucagon Inj) 1 mg UD PRN SQ 01/31/17 22:30 03/02/17 22:29 Allopurinol (Zyloprim Tab) 300 mg QAM PO 02/01/17 09:00 03/03/17 08:59 02/06/17 07:45 300 MG Atorvastatin Calcium (Lipitor Tab) 80 mg DAILY PO 02/01/17 09:00 03/03/17 08:59 Future Hold 02/01/17 07:45 80 MG Calcium/Vitamin D (Caltrate Plus Tab) 1 tab QPM PO 02/01/17 21:00 03/03/17 20:59 Ferrous Sulfate (Feosol Tab) 325 mg QAM PO 02/01/17 09:00 03/03/17 08:59 02/06/17 07:46 325 MG Folic Acid (Folvite Tab) 1 mg QAM PO 02/01/17 09:00 03/03/17 08:59 02/06/17 07:45 1 MG Levothyroxine Sodium (Synthroid Tab) 75 mcg DAILYBB PO 02/01/17 06:30 03/03/17 06:59 02/06/17 06:03 75 MCG Metoprolol Succinate (Toprol Xl Tab) 25 mg DAILY PO 02/01/17 09:00 03/03/17 08:59 02/06/17 07:45 25 MG Multivitamins/ Minerals (Multivitamin W/ Minerals Tab) 1 tab QAM PO 02/01/17 09:00 03/03/17 08:59 02/06/17 07:45 1 TAB Potassium Chloride (Klor-Con Tab) 20 meq DAILY PO 02/01/17 09:00 03/03/17 08:59 02/06/17 07:45 20 MEQ Insulin Aspart (novoLOG ASPART) SLIDING SCALE If C... ACHS SC 02/01/17 21:00 03/03/17 20:59 02/05/17 12:26 1 UNITS Tramadol HCl (Ultram Tab) 50 mg Q4H PRN PO 02/03/17 08:45 03/05/17 08:44 02/03/17 21:56 50 MG Docusate Sodium (coLACE CAP) 100 mg BID PO 02/03/17 09:00 03/05/17 08:59 02/03/17 10:00 100 MG Polyethylene (Miralax Powder Packet) 17 gm DAILY PO 02/03/17 09:00 03/05/17 08:59 02/03/17 10:01 17 GM Bisacodyl 5 mg 5 mg BID PRN PO 02/03/17 08:45 03/05/17 08:44 Ciprofloxacin/ Dextrose 400 mg/ Prmx 200 ml @ 100 mls/hr Q12 IV 02/03/17 21:00 02/13/17 20:59 02/06/17 08:41 100 MLS/HR Metronidazole/Prmx (Flagyl / Nss/ Premixed Nss) 100 ml @ 100 mls/hr Q8H IV 02/03/17 14:30 02/13/17 14:29 02/06/17 14:11 100 MLS/HR Hydromorphone HCl (Dilaudid Inj) 0.5 mg Q6H PRN IV 02/03/17 22:00 02/17/17 21:59 02/04/17 18:46 0.5 MG Ioversol 100 ml 100 ml UD PRN IV 02/04/17 00:00 02/08/17 00:00 Pantoprazole Sodium 40 mg/ Dextrose 100 ml @ 20 mls/hr Q5H IV 02/04/17 17:30 03/06/17 17:29 02/06/17 13:51 20 MLS/HR Sodium Chloride (Nss 1000ml) 1,000 ml @ 75 mls/hr [id number] IV 02/05/17 11:15 03/07/17 11:14 02/06/17 14:12 75 MLS/HR Simethicone (Mylicon Drops) 80 mg Q6H PRN PO 02/05/17 17:30 03/07/17 17:29 02/05/17 21:41 80 MG Potassium Chloride (Klor-Con Tab) 40 meq ONE PO 02/06/17 14:30 03/08/17 14:29 UNV
[2017-02-06] MEDS ORDERED: POTASSIUM CHLORIDE 20 MEQ TABCR PO ONE (14:45)
[2017-02-06 14:53] VITALS: BP 112/70; PULSE 71; TEMP 36.4; O2SAT 98
[2017-02-06] MEDS: BOOST BREEZE NUTRITION DRINK 1 BOX PO SCH (17:19)
[2017-02-06] MEDS: CALCIUM 600MG + VIT D 400 IU TAB PO SCH (20:42)
[2017-02-06 23:30] VITALS: BP 125/68; PULSE 53; TEMP 36.9; O2SAT 98
[2017-02-07] MEDS: PANTOprazole INJ 40 MG in DEXTROSE 5% 100ML IV SCH ×5 (00:07→21:24)
[2017-02-07] MEDS: SODIUM CHLORIDE 0.9% 1000ML 1,000 ML IV SCH ×2 (04:14→16:02)
[2017-02-07] MEDS: LEVOTHYROXINE 75 MCG TAB PO SCH (05:52)
[2017-02-07] MEDS: METRONIDAZOLE / NSS 500 MG in PREMIXED NSS 100 ML IV SCH ×2 (06:03→14:11)
[2017-02-07 06:37] LABS: BASO % 0.9 %; BASO ABS # 0.07 K/uL (0-0.2); EOS % 5.5 %; HEMATOCRIT 23.8 % (37-47); IG% 0.7 %; LYMPH % 20.3 %; LYMPH ABS # 1.52 K/uL (1.2-3.4); MEAN CELL VOLUME 90.2 fL (80-100); MEAN CORPUSCULAR HEMOGLOBIN 30.7 pg (25-34); MEAN PLATELET VOLUME 10.8 fL (7.4-10.4); MONO % 10.1 %; NEUT % 62.5 %; PLATELET COUNT 279 K/uL (130-400); RED BLOOD COUNT 2.64 M/uL (4.2-5.4); WHITE BLOOD COUNT 7.49 K/uL (4.8-10.8)
[2017-02-07 07:13] LABS: COMPLETE YES; ECHINOCYTES 1+; HYPOCHROMIA PRESENT; POLYCHROMASIA 1+; TARGET CELLS 1+
[2017-02-07 07:33] LABS: CREATININE 0.7 mg/dl (0.60-1.20)
[2017-02-07 07:34] LABS: BUN/CREATININE RATIO 5.3 (10-20); MAGNESIUM 2.1 mg/dl (1.8-2.4); PHOSPHORUS 1.3 mg/dl (2.5-4.9); POTASSIUM 3.5 mmol/L (3.5-5.1)
[2017-02-07 07:47] VITALS: BP 99/54; PULSE 73; TEMP 37.1; O2SAT 98
[2017-02-07 08:01] VITALS: BP 106/61; PULSE 77
[2017-02-07] MEDS: ALLOPURINOL 300 MG TAB PO SCH (08:03)
[2017-02-07] MEDS: CEROVITE ADV FORMULA TAB PO SCH (08:04)
[2017-02-07] MEDS: POTASSIUM CHLORIDE 20 MEQ TABCR PO SCH (08:04)
[2017-02-07] MEDS: METOPROLOL SUCC 25MG EXT REL TAB PO SCH (08:04)
[2017-02-07] MEDS: FERROUS SULFATE 325 MG TAB PO SCH (08:04)
[2017-02-07] MEDS: BOOST BREEZE NUTRITION DRINK 1 BOX PO SCH ×2 (08:05→17:00)
[2017-02-07] MEDS: CIPROFLOXACIN / D5W 400 MG in PREMIXED IN D5W 200 ML IV SCH (08:05)
[2017-02-07] MEDS: INSULIN ASPART 100 UNITS/ML 3 ML PEN SC SCH ×4 (08:16→21:00)
[2017-02-07] MEDS: POT PHOSPHATE MONOBASIC W/ SOD TAB PO SCH ×4 (09:35→21:25)
[2017-02-07 14:45] VITALS: BP 94/55; PULSE 58; TEMP 36.6; O2SAT 100
[2017-02-07 16:10] VITALS: O2SAT 100
--- NOTE | 2017-02-07 16:49 | Progress Note ---
Medicine Progress Note Date & Time of Visit: Feb 07, 2017 at 16:44. Subjective patient seen resting in bed, states she feels better than yesterday bloating has resolved no nausea no abdominal pain no note of hematemesis, hematochezia has liquid, black stools denies chest pain, dyspnea, palpitations, dizziness no other symptoms Objective Last 8 Hrs Date Time Temp Pulse Resp B/P Pulse Ox O2 Delivery O2 Flow Rate FiO2 02/07/17 14:45 36.6 58 18 94/55 100 Nasal Cannula 2.0 Physical Exam: General- oriented x 3, not in distress, speaks in sentences with no effort, no acc muscle use Neck- , no JVD Lungs- clear breath sounds b/l , no rales Heart- normal rate, regular rhythm; no murmurs Abdomen- normal bowel sounds, non distended, soft, no tenderness on the Left upper and Left lower quadrants Extremities- no pretibial edema, no calf tenderness Neuro- alert, oriented x 3; no gross focal deficits Skin- warm & dry Laboratory Results: Last 24 Hours Test 02/06/17 20:11 02/07/17 06:00 02/07/17 07:32 02/07/17 11:08 Bedside Glucose 165 mg/dl 117 mg/dl 165 mg/dl White Blood Count 7.49 K/uL Red Blood Count 2.64 M/uL Hemoglobin 8.1 g/dL Hematocrit 23.8 % Mean Corpuscular Volume 90.2 fL Mean Corpuscular Hemoglobin 30.7 pg Mean Corpuscular Hemoglobin Concent 34.0 g/dl Platelet Count 279 K/uL Mean Platelet Volume 10.8 fL Neutrophils (%) (Auto) 62.5 % Lymphocytes (%) (Auto) 20.3 % Monocytes (%) (Auto) 10.1 % Eosinophils (%) (Auto) 5.5 % Basophils (%) (Auto) 0.9 % Neutrophils # (Auto) 4.68 K/uL Lymphocytes # (Auto) 1.52 K/uL Monocytes # (Auto) 0.76 K/uL Eosinophils # (Auto) 0.41 K/uL Basophils # (Auto) 0.07 K/uL RDW Standard Deviation 53.8 fL RDW Coefficient of Variation 16.8 % Immature Granulocyte % (Auto) 0.7 % Immature Granulocyte # (Auto) 0.05 K/uL Polychromasia 1+ Hypochromasia PRESENT Macrocytosis PRESENT Target Cells 1+ Echinocytes 1+ Sodium Level 144 mmol/L Potassium Level 3.5 mmol/L Chloride Level 117 mmol/L Carbon Dioxide Level 19 mmol/L Anion Gap 8.0 mmol/L Blood Urea Nitrogen 4 mg/dl Creatinine 0.70 mg/dl Est Creatinine Clear Calc Drug Dose 49.7 ml/min Estimated GFR () 92.2 Estimated GFR (Non- 79.6 BUN/Creatinine Ratio 5.3 Random Glucose 116 mg/dl Calcium Level 8.0 mg/dl Phosphorus Level 1.3 mg/dl Magnesium Level 2.1 mg/dl Total Bilirubin 2.3 mg/dl Direct Bilirubin 1.9 mg/dl Aspartate Amino Transf (AST/SGOT) 193 U/L Alanine Aminotransferase (ALT/SGPT) 200 U/L Alkaline Phosphatase 1103 U/L Total Protein 5.6 gm/dl Albumin 1.9 gm/dl Test 02/07/17 15:55 Assessment & Plan 86 year old female with DM, HTN presenting with abdominal pain CHOLANGITIS, PAPILLARY STENOSIS, S/P PANCREATIC AND CBD STENT PLACEMENTT -S/P ERCP on 02/01/17- Biliary papillary stenosis, spinchterotomy performed, Bile duct swept with sludge and bile, Pancreatic duct- 1 stent placed, Bile duct - 1 stent placed. Plan was to remove stent in 6 weeks, - 02/03: (+) hematemesis, increasing LFTs CT abd/pelvis - ? ascending cholangitis, however, no fever, RUQ tenderness +. No bile duct dilation noted. -IV Zosyn x 2 ---> Changed to IV Cipro/Flagyl - 02/04: s/p repeat ERCP, Cauterization of Bleeding Papillary Stenosis site, replacement of Pancreatic Duct Stent - GI symptoms improving LFTs continues to improve afebrile, no leukocytosis - tolerating full liquids--> possible advance to soft diet tomorrow continue Cipro and Metro, Protonix drip hold IV fluids for now - will discuss with GI re: protonic drip ACUTE LEFT SIGMOID (MILD) DIVERTICULITIS WITH BLEEDING: -CT abd/pelvis on admission + mild sigmoid diverticulitis. No evidence of abscess or perforation - remains afebrile, no leukocytosis -IV Antibiotics- Zosyn x 2 days ---> Changed to Cipro/Flagyl Day 4 as above per GI ACUTE BLOOD LOSS ANEMIA - Likely diverticular bleeding - s/p 2 units pRBC Hg improved to 9, now decreased to 8 -- monitor for now continue Protonix drip HYPOPHOSPHATEMIA - replete and monitor CHEST PAIN AND DYSPNEA, RESOLVED - Likely related to above - Had an episode of chest pain/SOB -CT chest was done- no acute abnormalities noted -EKG- no sig ischemic changes, Troponin negative IPMN - monitor as outpatient possible repeat CT in 1 year CKD STAGE 3 - stable WELL-CONTROLLED DM 2 -recent A1C 5.8 -hold metformin - ISS -monitor BSG AC HS HYPOTHYROIDISM -cont levothyroxine HTN -BP stable -cont metoprolol DYSLIPIDEMIA -Hold high-dose statin due to elevated LFTs PAIN CONTROL -Allergic to morphine/Oxycodone -IV Dilaudid 0.5 mg q 6 hours prn tolerating it, but using it much DVT PROPHYLAXIS Heparin SQ - hold due to bleeding. SCDS/TEDS CODE STATUS -DNR per discussion with patient upon admission DISPO Medical mx in progress- PT/OT eval in progress discussed with son Denis, he is agreeable with plan of care, also ok with patient going to SNF/Rehab if necessary Current Inpatient Medications: Current Inpatient Medications Medications (Trade) Dose Ordered Sig/Faith Route Start Time Stop Time Status Last Admin Dose Admin Heparin Sodium (Porcine) (Heparin Sq 5000 Unit/0.5ml) 5,000 unit Q8H SQ 02/01/17 06:00 03/03/17 05:59 Future Hold 02/03/17 13:48 5,000 UNIT Ondansetron HCl (Zofran Inj) 4 mg Q6H PRN IV 01/31/17 22:15 03/02/17 22:14 02/05/17 04:51 4 MG Glucose (Glucose 40% Gel) 15-30 GRAMS 15 GRAMS... UD PRN PO 01/31/17 22:30 03/02/17 22:29 Glucose (Glucose Chew Tab) 4-8 Tablets 4 Tabl... UD PRN PO 01/31/17 22:30 03/02/17 22:29 Dextrose (Dextrose 50% 50ML Syringe) 25-50ML OF 50% DW IV FOR... UD PRN IV 01/31/17 22:30 03/02/17 22:29 Glucagon (Glucagon Inj) 1 mg UD PRN SQ 01/31/17 22:30 03/02/17 22:29 Allopurinol (Zyloprim Tab) 300 mg QAM PO 02/01/17 09:00 03/03/17 08:59 02/07/17 08:03 300 MG Atorvastatin Calcium (Lipitor Tab) 80 mg DAILY PO 02/01/17 09:00 03/03/17 08:59 Future Hold 02/01/17 07:45 80 MG Calcium/Vitamin D (Caltrate Plus Tab) 1 tab QPM PO 02/01/17 21:00 03/03/17 20:59 Ferrous Sulfate (Feosol Tab) 325 mg QAM PO 02/01/17 09:00 03/03/17 08:59 02/07/17 08:04 325 MG Folic Acid (Folvite Tab) 1 mg QAM PO 02/01/17 09:00 03/03/17 08:59 02/07/17 08:03 1 MG Levothyroxine Sodium (Synthroid Tab) 75 mcg DAILYBB PO 02/01/17 06:30 03/03/17 06:59 02/07/17 05:52 75 MCG Metoprolol Succinate (Toprol Xl Tab) 25 mg DAILY PO 02/01/17 09:00 03/03/17 08:59 02/07/17 08:04 25 MG Multivitamins/ Minerals (Multivitamin W/ Minerals Tab) 1 tab QAM PO 02/01/17 09:00 03/03/17 08:59 02/07/17 08:04 1 TAB Potassium Chloride (Klor-Con Tab) 20 meq DAILY PO 02/01/17 09:00 03/03/17 08:59 02/07/17 08:04 20 MEQ Insulin Aspart (novoLOG ASPART) SLIDING SCALE If C... ACHS SC 02/01/17 21:00 03/03/17 20:59 02/07/17 12:40 2 UNITS Tramadol HCl (Ultram Tab) 50 mg Q4H PRN PO 02/03/17 08:45 03/05/17 08:44 02/03/17 21:56 50 MG Bisacodyl (Dulcolax Tab) 5 mg BID PRN PO 02/03/17 08:45 03/05/17 08:44 Hydromorphone HCl (Dilaudid Inj) 0.5 mg Q6H PRN IV 02/03/17 22:00 02/17/17 21:59 02/04/17 18:46 0.5 MG Ioversol 100 ml 100 ml UD PRN IV 02/04/17 00:00 02/08/17 00:00 Pantoprazole Sodium 40 mg/ Dextrose 100 ml @ 20 mls/hr Q5H IV 02/04/17 17:30 03/06/17 17:29 02/07/17 16:02 20 MLS/HR Sodium Chloride (Nss 1000ml) 1,000 ml @ 75 mls/hr [id number] IV 02/05/17 11:15 03/07/17 11:14 02/07/17 16:02 75 MLS/HR Simethicone (Mylicon Drops) 80 mg Q6H PRN PO 02/05/17 17:30 03/07/17 17:29 02/05/17 21:41 80 MG Enteral Nutritional Formula (Boost Breeze Nutritional Drink) 1 box [id number] PO 02/06/17 17:00 03/08/17 16:59 02/07/17 08:05 1 BOX Potassium/ Phosphorus/Sodium (Phospha 250 Neutral 155-852-130 Mg) 2 tab QID PO 02/07/17 09:30 03/09/17 09:29 02/07/17 12:39 2 TAB Ciprofloxacin (Cipro Tab) 500 mg BID PO 02/07/17 21:00 02/13/17 20:59 Metronidazole (Flagyl Tab) 500 mg TID PO 02/07/17 21:00 02/13/17 14:29
[2017-02-07] MEDS: CALCIUM 600MG + VIT D 400 IU TAB PO SCH (21:00)
[2017-02-07] MEDS: METRONIDAZOLE 500 MG TAB PO SCH (21:25)
[2017-02-07] MEDS: CIPROFLOXACIN 500 MG TAB PO SCH (21:26)
[2017-02-07 23:23] VITALS: BP 152/69; PULSE 68; TEMP 36.4; O2SAT 97
[2017-02-08] MEDS: PANTOprazole INJ 40 MG in DEXTROSE 5% 100ML IV SCH ×2 (02:07→06:04)
[2017-02-08] MEDS: LEVOTHYROXINE 75 MCG TAB PO SCH (06:04)
[2017-02-08] MEDS: INSULIN ASPART 100 UNITS/ML 3 ML PEN SC SCH ×4 (06:30→22:10)
[2017-02-08 07:25] VITALS: BP 114/68; PULSE 72; TEMP 36.7; O2SAT 97
[2017-02-08] MEDS: BOOST BREEZE NUTRITION DRINK 1 BOX PO SCH ×2 (08:01→17:00)
[2017-02-08 08:03] LABS: BASO % 1.2 %; EOS % 4.8 %; HEMATOCRIT 25.3 % (37-47); IG% 0.6 %; LYMPH % 18.8 %; LYMPH ABS # 1.54 K/uL (1.2-3.4); MEAN CORPUSCULAR HGB CONC 34.4 g/dl (32-36); MEAN PLATELET VOLUME 10.7 fL (7.4-10.4); MONO % 8.6 %; PLATELET COUNT 360 K/uL (130-400); RED BLOOD COUNT 2.81 M/uL (4.2-5.4); WHITE BLOOD COUNT 8.18 K/uL (4.8-10.8)
[2017-02-08] MEDS: CIPROFLOXACIN 500 MG TAB PO SCH ×2 (08:03→22:08)
[2017-02-08] MEDS: ALLOPURINOL 300 MG TAB PO SCH (08:03)
[2017-02-08] MEDS: FERROUS SULFATE 325 MG TAB PO SCH (08:03)
[2017-02-08] MEDS: POTASSIUM CHLORIDE 20 MEQ TABCR PO SCH (08:04)
[2017-02-08] MEDS: POT PHOSPHATE MONOBASIC W/ SOD TAB PO SCH ×3 (08:04→17:40)
[2017-02-08] MEDS: CEROVITE ADV FORMULA TAB PO SCH (08:05)
[2017-02-08] MEDS: METOPROLOL SUCC 25MG EXT REL TAB PO SCH (08:05)
[2017-02-08] MEDS: METRONIDAZOLE 500 MG TAB PO SCH ×3 (08:05→22:08)
--- NOTE | 2017-02-08 08:36 | Gastroenterology Progress Note ---
Progress Note Date of Service: Feb 08, 2017 Subjective Pt evaluation today including: conversation w/ patient, physical exam, chart review, lab review, review of studies, review of inpatient medication list Ms. Rankin is an 86 yr old female admitted with diverticulitis and post ERCP bleed with clot occluding previously placed CBD stent. She underwent ERCP with stent change on 02/05/[address] Vann. Today, Hb stable at 8.1, S/P 2 U or RBC, on 02/04. BUN pending. On Protonix drip day #4. One large liquid black BM yesterday. LFTs improving: TB 2.3 (yesterday - today's Chem panel is pending), down from 6.2 on 02/05. Afebrile, w/o leukocytosis on Cipro/Flagyl. Review of Systems Constitutional: No fever Respiratory: No cough Cardiac: No chest pain Abdomen: No nausea, No pain, No vomiting Musculoskeletal: No joint pain Difficult to get a good hx. Pt talking at great length about how, "nobody knows anything about depression." Denies any pain, but does c/o abdominal bloating. Medications Current Inpatient Medications Medications (Trade) Dose Ordered Sig/Faith Route Start Time Stop Time Status Last Admin Dose Admin Heparin Sodium (Porcine) (Heparin Sq 5000 Unit/0.5ml) 5,000 unit Q8H SQ 02/01/17 06:00 03/03/17 05:59 Future Hold 02/03/17 13:48 5,000 UNIT Ondansetron HCl (Zofran Inj) 4 mg Q6H PRN IV 01/31/17 22:15 03/02/17 22:14 02/05/17 04:51 4 MG Glucose (Glucose 40% Gel) 15-30 GRAMS 15 GRAMS... UD PRN PO 01/31/17 22:30 03/02/17 22:29 Glucose (Glucose Chew Tab) 4-8 Tablets 4 Tabl... UD PRN PO 01/31/17 22:30 03/02/17 22:29 Dextrose (Dextrose 50% 50ML Syringe) 25-50ML OF 50% DW IV FOR... UD PRN IV 01/31/17 22:30 03/02/17 22:29 Glucagon (Glucagon Inj) 1 mg UD PRN SQ 01/31/17 22:30 03/02/17 22:29 Allopurinol (Zyloprim Tab) 300 mg QAM PO 02/01/17 09:00 03/03/17 08:59 02/08/17 08:03 300 MG Atorvastatin Calcium (Lipitor Tab) 80 mg DAILY PO 02/01/17 09:00 03/03/17 08:59 Future Hold 02/01/17 07:45 80 MG Calcium/Vitamin D (Caltrate Plus Tab) 1 tab QPM PO 02/01/17 21:00 03/03/17 20:59 Ferrous Sulfate (Feosol Tab) 325 mg QAM PO 02/01/17 09:00 03/03/17 08:59 02/08/17 08:03 325 MG Folic Acid (Folvite Tab) 1 mg QAM PO 02/01/17 09:00 03/03/17 08:59 02/08/17 08:04 1 MG Levothyroxine Sodium (Synthroid Tab) 75 mcg DAILYBB PO 02/01/17 06:30 03/03/17 06:59 02/08/17 06:04 75 MCG Metoprolol Succinate (Toprol Xl Tab) 25 mg DAILY PO 02/01/17 09:00 03/03/17 08:59 02/08/17 08:05 25 MG Multivitamins/ Minerals (Multivitamin W/ Minerals Tab) 1 tab QAM PO 02/01/17 09:00 03/03/17 08:59 02/08/17 08:05 1 TAB Potassium Chloride (Klor-Con Tab) 20 meq DAILY PO 02/01/17 09:00 03/03/17 08:59 02/08/17 08:04 20 MEQ Insulin Aspart (novoLOG ASPART) SLIDING SCALE If C... ACHS SC 02/01/17 21:00 03/03/17 20:59 02/07/17 12:40 2 UNITS Tramadol HCl (Ultram Tab) 50 mg Q4H PRN PO 02/03/17 08:45 03/05/17 08:44 02/03/17 21:56 50 MG Bisacodyl (Dulcolax Tab) 5 mg BID PRN PO 02/03/17 08:45 03/05/17 08:44 Hydromorphone HCl 0.5 mg 0.5 mg Q6H PRN IV 02/03/17 22:00 02/17/17 21:59 02/04/17 18:46 0.5 MG Pantoprazole Sodium/Dextrose (Protonix Inj/D5 100ml) 100 ml @ 20 mls/hr Q5H IV 02/04/17 17:30 03/06/17 17:29 02/08/17 06:04 20 MLS/HR Simethicone (Mylicon Drops) 80 mg Q6H PRN PO 02/05/17 17:30 03/07/17 17:29 02/05/17 21:41 80 MG Enteral Nutritional Formula (Boost Breeze Nutritional Drink) 1 box [id number] PO 02/06/17 17:00 03/08/17 16:59 02/07/17 08:05 1 BOX Potassium/ Phosphorus/Sodium (Phospha 250 Neutral 155-852-130 Mg) 2 tab QID PO 02/07/17 09:30 03/09/17 09:29 02/08/17 08:04 2 TAB Ciprofloxacin (Cipro Tab) 500 mg BID PO 02/07/17 21:00 02/13/17 20:59 02/08/17 08:03 500 MG Metronidazole (Flagyl Tab) 500 mg TID PO 02/07/17 21:00 02/13/17 14:29 02/08/17 08:05 500 MG Objective Vital Signs Date Time Temp Pulse Resp B/P Pulse Ox O2 Delivery O2 Flow Rate FiO2 02/08/17 07:25 36.7 72 20 114/68 97 Room Air 02/08/17 00:00 Nasal Cannula 2.0 02/07/17 23:23 36.4 68 16 152/69 97 Room Air 02/07/17 16:10 100 Nasal Cannula 2.0 02/07/17 14:45 36.6 58 18 94/55 100 Nasal Cannula 2.0 02/07/17 08:41 Nasal Cannula 2.0 Physical Exam General Appearance: no apparent distress Neck: no JVD Respiratory/Chest: lungs clear, normal breath sounds Cardiovascular: regular rate, rhythm, no murmur Abdomen: normal bowel sounds, non tender, soft, + distended (minimally) Extremities: no pedal edema Neurologic/Psych: alert, normal mood/affect Skin: no jaundice Laboratory Results Last 24 Hours Test 02/07/17 11:08 02/07/17 15:55 02/07/17 16:26 02/07/17 20:33 Bedside Glucose 165 mg/dl 100 mg/dl 116 mg/dl Phosphorus Level 2.7 mg/dl Test 02/08/17 07:20 White Blood Count 8.18 K/uL Red Blood Count 2.81 M/uL Hemoglobin 8.7 g/dL Hematocrit 25.3 % Mean Corpuscular Volume 90.0 fL Mean Corpuscular Hemoglobin 31.0 pg Mean Corpuscular Hemoglobin Concent 34.4 g/dl Platelet Count 360 K/uL Mean Platelet Volume 10.7 fL Neutrophils (%) (Auto) 66.0 % Lymphocytes (%) (Auto) 18.8 % Monocytes (%) (Auto) 8.6 % Eosinophils (%) (Auto) 4.8 % Basophils (%) (Auto) 1.2 % Neutrophils # (Auto) 5.40 K/uL Lymphocytes # (Auto) 1.54 K/uL Monocytes # (Auto) 0.70 K/uL Eosinophils # (Auto) 0.39 K/uL Basophils # (Auto) 0.10 K/uL RDW Standard Deviation 51.4 fL RDW Coefficient of Variation 17.5 % Immature Granulocyte % (Auto) 0.6 % Immature Granulocyte # (Auto) 0.05 K/uL Assessment and Plan Ms. Rankin is a n 86 yr old female with experienced post ERCP bleed and increase in LFTs from clot occluding the CBD stent. She has done well since she underwent repeat ERCP on 03/06 with change of CBD stent, tx of sphincterotomy bleed. Plan Discussed with Dr. Miranda GI recommends: 1. OK to change Protonix drip to BID. Though most recent BM yesterday was black , this may be residual or may be from her po iron because BUN is normal, Hb stable post transfusion so doubt evidence of current bleeding. 2. LFTs are continuing to improve so no concern for CBD obstruction since recent ERCP. 3. OK to advance diet. 4. Continue Cipro/Flagyl x total [address] Vann's instruction. -I have seen examined this patient with JEFF Kimbrough and agree with the plan and exam as outlined above. No signs of bleeding -Advance diet
[2017-02-08 08:52] LABS: ALKALINE PHOSPHATASE 1058 U/L (45-117); ALT/SGPT 178 U/L (12-78); AST/SGOT 166 U/L (15-37); BLOOD UREA NITROGEN 3 mg/dl (7-18); BUN/CREATININE RATIO 3.5 (10-20); CALCIUM 8.8 mg/dl (8.5-10.1); CARBON DIOXIDE 22 mmol/L (21-32); CHLORIDE 112 mmol/L (98-107); CREATININE 0.72 mg/dl (0.60-1.20); GLUCOSE 122 mg/dl (70-99); PHOSPHORUS 3.6 mg/dl (2.5-4.9); POTASSIUM 3.1 mmol/L (3.5-5.1); SODIUM 144 mmol/L (136-145)
[2017-02-08 08:54] LABS: COMPLETE YES; POLYCHROMASIA 1+; TARGET CELLS 1+
[2017-02-08 14:59] VITALS: BP 116/64; PULSE 72; TEMP 36.8; O2SAT 96
[2017-02-08] MEDS ORDERED: POTASSIUM CHLORIDE 20 MEQ TABCR PO ONE (15:31)
[2017-02-08 16:12] VITALS: O2SAT 100
--- NOTE | 2017-02-08 19:46 | Progress Note ---
Medicine Progress Note Date & Time of Visit: Feb 08, 2017 at 19:41. Subjective comfortable, awake, alert no bloating, abdominal pain, tolerating diet denies chest pain, dyspnea, palpitations no other symptoms Objective Last 8 Hrs Date Time Temp Pulse Resp B/P Pulse Ox O2 Delivery O2 Flow Rate FiO2 02/08/17 14:59 36.8 72 20 116/64 96 Physical Exam: General- oriented x 3, not in distress, speaks in sentences with no effort, no acc muscle use Neck- no JVD Lungs- clear breath sounds, no rales/wheezes b/l Heart- normal rate, regular rhythm; no murmurs Abdomen- normal bowel sounds, non distended, soft, no tenderness Extremities- no pretibial edema, no calf tenderness Neuro- alert, oriented x 3; no gross focal deficits Skin- warm & dry Laboratory Results: Last 24 Hours Test 02/07/17 20:33 02/08/17 07:20 02/08/17 07:37 02/08/17 09:06 Bedside Glucose 116 mg/dl 118 mg/dl White Blood Count 8.18 K/uL Red Blood Count 2.81 M/uL Hemoglobin 8.7 g/dL Hematocrit 25.3 % Mean Corpuscular Volume 90.0 fL Mean Corpuscular Hemoglobin 31.0 pg Mean Corpuscular Hemoglobin Concent 34.4 g/dl Platelet Count 360 K/uL Mean Platelet Volume 10.7 fL Neutrophils (%) (Auto) 66.0 % Lymphocytes (%) (Auto) 18.8 % Monocytes (%) (Auto) 8.6 % Eosinophils (%) (Auto) 4.8 % Basophils (%) (Auto) 1.2 % Neutrophils # (Auto) 5.40 K/uL Lymphocytes # (Auto) 1.54 K/uL Monocytes # (Auto) 0.70 K/uL Eosinophils # (Auto) 0.39 K/uL Basophils # (Auto) 0.10 K/uL RDW Standard Deviation 51.4 fL RDW Coefficient of Variation 17.5 % Immature Granulocyte % (Auto) 0.6 % Immature Granulocyte # (Auto) 0.05 K/uL Polychromasia 1+ Target Cells 1+ Sodium Level 144 mmol/L Potassium Level 3.1 mmol/L Chloride Level 112 mmol/L Carbon Dioxide Level 22 mmol/L Anion Gap 10.0 mmol/L Blood Urea Nitrogen 3 mg/dl Creatinine 0.72 mg/dl Est Creatinine Clear Calc Drug Dose 48.3 ml/min Estimated GFR () 89.1 Estimated GFR (Non- 76.9 BUN/Creatinine Ratio 3.5 Random Glucose 122 mg/dl Calcium Level 8.8 mg/dl Phosphorus Level 3.6 mg/dl Total Bilirubin 1.8 mg/dl Direct Bilirubin mg/dl 1.6 mg/dl Aspartate Amino Transf (AST/SGOT) 166 U/L Alanine Aminotransferase (ALT/SGPT) 178 U/L Alkaline Phosphatase 1058 U/L Total Protein 5.7 gm/dl Albumin 1.9 gm/dl Test 02/08/17 11:18 02/08/17 16:24 Bedside Glucose 147 mg/dl 154 mg/dl Assessment & Plan 86 year old female with DM, HTN presenting with abdominal pain CHOLANGITIS, PAPILLARY STENOSIS, S/P PANCREATIC AND CBD STENT PLACEMENTT -S/P ERCP on 02/01/17- Biliary papillary stenosis, spinchterotomy performed, Bile duct swept with sludge and bile, Pancreatic duct- 1 stent placed, Bile duct - 1 stent placed. Plan was to remove stent in 6 weeks, - 02/03: (+) hematemesis, increasing LFTs CT abd/pelvis - ? ascending cholangitis, however, no fever, RUQ tenderness +. No bile duct dilation noted. -IV Zosyn x 2 ---> Changed to IV Cipro/Flagyl - 02/04: s/p repeat ERCP, Cauterization of Bleeding Papillary Stenosis site, replacement of Pancreatic Duct Stent - GI symptoms improving daily LFTs continues to improve as wekk afebrile, no leukocytosis - tolerating soft diet continue Cipro and Metro, Protonix drip changed to BID ACUTE LEFT SIGMOID (MILD) DIVERTICULITIS WITH BLEEDING: -CT abd/pelvis on admission + mild sigmoid diverticulitis. No evidence of abscess or perforation - remains afebrile, no leukocytosis -IV Antibiotics- Zosyn x 2 days ---> Changed to Cipro/Flagyl Day 5 as above per GI ACUTE BLOOD LOSS ANEMIA - Likely diverticular bleeding - s/p 2 units pRBC Hg improved to 9--> 8.7 -- monitor for now change protonix to BID HYPOPHOSPHATEMIA - replete and monitor CHEST PAIN AND DYSPNEA, RESOLVED - Likely related to above - Had an episode of chest pain/SOB -CT chest was done- no acute abnormalities noted -EKG- no sig ischemic changes, Troponin negative IPMN - monitor as outpatient possible repeat CT in 1 year CKD STAGE 3 - stable WELL-CONTROLLED DM 2 -recent A1C 5.8 -hold metformin - ISS -monitor BSG AC HS HYPOTHYROIDISM -cont levothyroxine HTN -BP stable -cont metoprolol DYSLIPIDEMIA -Hold high-dose statin due to elevated LFTs PAIN CONTROL -Allergic to morphine/Oxycodone -IV Dilaudid 0.5 mg q 6 hours prn tolerating it, but using it much DVT PROPHYLAXIS Heparin SQ - hold due to bleeding. SCDS/TEDS CODE STATUS -DNR per discussion with patient upon admission DISPO Medical mx in progress- PT/OT eval in progress discussed with son Denis, he is agreeable with plan of care, also ok with patient going to SNF/Rehab if necessary Current Inpatient Medications: Current Inpatient Medications Medications (Trade) Dose Ordered Sig/Faith Route Start Time Stop Time Status Last Admin Dose Admin Heparin Sodium (Porcine) (Heparin Sq 5000 Unit/0.5ml) 5,000 unit Q8H SQ 02/01/17 06:00 03/03/17 05:59 Future Hold 02/03/17 13:48 5,000 UNIT Ondansetron HCl (Zofran Inj) 4 mg Q6H PRN IV 01/31/17 22:15 03/02/17 22:14 02/05/17 04:51 4 MG Glucose (Glucose 40% Gel) 15-30 GRAMS 15 GRAMS... UD PRN PO 01/31/17 22:30 03/02/17 22:29 Glucose (Glucose Chew Tab) 4-8 Tablets 4 Tabl... UD PRN PO 01/31/17 22:30 03/02/17 22:29 Dextrose (Dextrose 50% 50ML Syringe) 25-50ML OF 50% DW IV FOR... UD PRN IV 01/31/17 22:30 03/02/17 22:29 Glucagon (Glucagon Inj) 1 mg UD PRN SQ 01/31/17 22:30 03/02/17 22:29 Allopurinol (Zyloprim Tab) 300 mg QAM PO 02/01/17 09:00 03/03/17 08:59 02/08/17 08:03 300 MG Atorvastatin Calcium (Lipitor Tab) 80 mg DAILY PO 02/01/17 09:00 03/03/17 08:59 Future Hold 02/01/17 07:45 80 MG Calcium/Vitamin D (Caltrate Plus Tab) 1 tab QPM PO 02/01/17 21:00 03/03/17 20:59 Ferrous Sulfate (Feosol Tab) 325 mg QAM PO 02/01/17 09:00 03/03/17 08:59 02/08/17 08:03 325 MG Folic Acid (Folvite Tab) 1 mg QAM PO 02/01/17 09:00 03/03/17 08:59 02/08/17 08:04 1 MG Levothyroxine Sodium (Synthroid Tab) 75 mcg DAILYBB PO 02/01/17 06:30 03/03/17 06:59 02/08/17 06:04 75 MCG Metoprolol Succinate (Toprol Xl Tab) 25 mg DAILY PO 02/01/17 09:00 03/03/17 08:59 02/08/17 08:05 25 MG Multivitamins/ Minerals (Multivitamin W/ Minerals Tab) 1 tab QAM PO 02/01/17 09:00 03/03/17 08:59 02/08/17 08:05 1 TAB Potassium Chloride (Klor-Con Tab) 20 meq DAILY PO 02/01/17 09:00 03/03/17 08:59 02/08/17 08:04 20 MEQ Insulin Aspart (novoLOG ASPART) SLIDING SCALE If C... ACHS SC 02/01/17 21:00 03/03/17 20:59 02/08/17 17:45 2 UNITS Tramadol HCl (Ultram Tab) 50 mg Q4H PRN PO 02/03/17 08:45 03/05/17 08:44 02/03/17 21:56 50 MG Bisacodyl (Dulcolax Tab) 5 mg BID PRN PO 02/03/17 08:45 03/05/17 08:44 Hydromorphone HCl (Dilaudid Inj) 0.5 mg Q6H PRN IV 02/03/17 22:00 02/17/17 21:59 02/04/17 18:46 0.5 MG Simethicone (Mylicon Drops) 80 mg Q6H PRN PO 02/05/17 17:30 03/07/17 17:29 02/05/17 21:41 80 MG Enteral Nutritional Formula (Boost Breeze Nutritional Drink) 1 box BID17 PO 02/06/17 17:00 03/08/17 16:59 02/07/17 08:05 1 BOX Potassium/ Phosphorus/Sodium (Phospha 250 Neutral 155-852-130 Mg) 2 tab QID PO 02/07/17 09:30 03/09/17 09:29 02/08/17 17:40 2 TAB Ciprofloxacin (Cipro Tab) 500 mg BID PO 02/07/17 21:00 02/13/17 20:59 02/08/17 08:03 500 MG Metronidazole (Flagyl Tab) 500 mg TID PO 02/07/17 21:00 02/13/17 14:29 02/08/17 13:46 500 MG
[2017-02-08] MEDS: CALCIUM 600MG + VIT D 400 IU TAB PO SCH (21:00)
[2017-02-08] MEDS: PANTOprazole INJ 40 MG in SYRINGE 0 ML IV SCH (22:07)
[2017-02-09] VITALS: BP 116/77; PULSE 72; TEMP 36.8; O2SAT 97
[2017-02-09] MEDS: INSULIN ASPART 100 UNITS/ML 3 ML PEN SC SCH ×4 (06:30→22:53)
[2017-02-09] MEDS: LEVOTHYROXINE 75 MCG TAB PO SCH (06:37)
[2017-02-09 07:28] LABS: BASO ABS # 0.09 K/uL (0-0.2); EOS % 5.4 %; IG% 0.6 %; LYMPH % 20.1 %; LYMPH ABS # 1.81 K/uL (1.2-3.4); MEAN CELL VOLUME 91.9 fL (80-100); MEAN CORPUSCULAR HEMOGLOBIN 31.1 pg (25-34); MEAN CORPUSCULAR HGB CONC 33.8 g/dl (32-36); MEAN PLATELET VOLUME 10.3 fL (7.4-10.4); MONO % 8.4 %; NEUT % 64.5 %; PLATELET COUNT 385 K/uL (130-400); RED BLOOD COUNT 2.83 M/uL (4.2-5.4)
[2017-02-09 07:54] LABS: ANISOCYTOSIS PRESENT; COMPLETE YES
[2017-02-09 08:03] VITALS: BP 127/66; PULSE 64; TEMP 36.5; O2SAT 95
[2017-02-09 08:03] LABS: BUN/CREATININE RATIO 6.1 (10-20); CALCIUM 8.7 mg/dl (8.5-10.1); POTASSIUM 3.5 mmol/L (3.5-5.1)
[2017-02-09 08:39] LABS: PHOSPHORUS 4.4 mg/dl (2.5-4.9)
[2017-02-09] MEDS: BOOST BREEZE NUTRITION DRINK 1 BOX PO SCH ×2 (09:00→17:00)
[2017-02-09] MEDS: PANTOprazole INJ 40 MG in SYRINGE 0 ML IV SCH ×2 (09:10→22:50)
[2017-02-09] MEDS: CEROVITE ADV FORMULA TAB PO SCH (09:11)
[2017-02-09] MEDS: CALCIUM 600MG + VIT D 400 IU TAB PO SCH ×2 (09:11→22:49)
[2017-02-09] MEDS: CIPROFLOXACIN 500 MG TAB PO SCH ×2 (09:11→22:50)
[2017-02-09] MEDS: FERROUS SULFATE 325 MG TAB PO SCH (09:12)
[2017-02-09] MEDS: METOPROLOL SUCC 25MG EXT REL TAB PO SCH (09:12)
[2017-02-09] MEDS: ALLOPURINOL 300 MG TAB PO SCH (09:12)
[2017-02-09] MEDS: METRONIDAZOLE 500 MG TAB PO SCH ×3 (09:13→22:49)
[2017-02-09] MEDS: POTASSIUM CHLORIDE 20 MEQ TABCR PO SCH (09:15)
--- NOTE | 2017-02-09 15:10 | Progress Note ---
Medicine Progress Note Date & Time of Visit: Feb 09, 2017 at 15:07. Subjective patient seen resting in bed, comfortable tolerating soft diet, no nausea, abdominal pain\ denies chest pain, dyspnea, palpitations, dizziness no other symptoms Objective Last 8 Hrs Date Time Temp Pulse Resp B/P Pulse Ox O2 Delivery O2 Flow Rate FiO2 02/09/17 08:03 36.5 64 18 127/66 95 Room Air 02/09/17 08:00 Room Air Physical Exam: General- oriented x 3, not in distress, speaks in sentences with no effort, no acc muscle use Neck- no JVD Lungs- no rales/wheeze, clear breath sounds bilaterally Heart- normal rate, regular rhythm; no murmurs Abdomen- normal bowel sounds, non distended, soft, no tenderness Extremities- no pretibial edema, no calf tenderness Neuro- alert, oriented x 3; no gross focal deficits Skin- warm & dry Laboratory Results: Last 24 Hours Test 02/08/17 16:24 02/08/17 20:44 02/09/17 06:45 Bedside Glucose 154 mg/dl 184 mg/dl White Blood Count 9.00 K/uL Red Blood Count 2.83 M/uL Hemoglobin 8.8 g/dL Hematocrit 26.0 % Mean Corpuscular Volume 91.9 fL Mean Corpuscular Hemoglobin 31.1 pg Mean Corpuscular Hemoglobin Concent 33.8 g/dl Platelet Count 385 K/uL Mean Platelet Volume 10.3 fL Neutrophils (%) (Auto) 64.5 % Lymphocytes (%) (Auto) 20.1 % Monocytes (%) (Auto) 8.4 % Eosinophils (%) (Auto) 5.4 % Basophils (%) (Auto) 1.0 % Neutrophils # (Auto) 5.80 K/uL Lymphocytes # (Auto) 1.81 K/uL Monocytes # (Auto) 0.76 K/uL Eosinophils # (Auto) 0.49 K/uL Basophils # (Auto) 0.09 K/uL RDW Standard Deviation 54.1 fL RDW Coefficient of Variation 18.4 % Immature Granulocyte % (Auto) 0.6 % Immature Granulocyte # (Auto) 0.05 K/uL Anisocytosis PRESENT Sodium Level 144 mmol/L Potassium Level 3.5 mmol/L Chloride Level 111 mmol/L Carbon Dioxide Level 22 mmol/L Anion Gap 11.0 mmol/L Blood Urea Nitrogen 6 mg/dl Creatinine 1.00 mg/dl Est Creatinine Clear Calc Drug Dose 34.8 ml/min Estimated GFR () 59.9 Estimated GFR (Non- 51.7 BUN/Creatinine Ratio 6.1 Random Glucose 150 mg/dl Calcium Level 8.7 mg/dl Phosphorus Level 4.4 mg/dl Total Bilirubin 1.6 mg/dl Direct Bilirubin 1.2 mg/dl Aspartate Amino Transf (AST/SGOT) 139 U/L Alanine Aminotransferase (ALT/SGPT) 154 U/L Alkaline Phosphatase 1017 U/L Total Protein 5.9 gm/dl Albumin 2.2 gm/dl Assessment & Plan 86 year old female with DM, HTN presenting with abdominal pain CHOLANGITIS, PAPILLARY STENOSIS, S/P PANCREATIC AND CBD STENT PLACEMENTT -S/P ERCP on 02/01/17- Biliary papillary stenosis, spinchterotomy performed, Bile duct swept with sludge and bile, Pancreatic duct- 1 stent placed, Bile duct - 1 stent placed. Plan was to remove stent in 6 weeks, - 02/03: (+) hematemesis, increasing LFTs CT abd/pelvis - ? ascending cholangitis, however, no fever, RUQ tenderness +. No bile duct dilation noted. -IV Zosyn x 2 ---> Changed to IV Cipro/Flagyl - 02/04: s/p repeat ERCP, Cauterization of Bleeding Papillary Stenosis site, replacement of Pancreatic Duct Stent - afebrile, GI symptoms resolving LFTs decreasing Bilirubin decreasing - tolerating soft diet well continue Cipro and Metro x total of 14 days Protonix drip changed to BID - anticipate d/c tomorrow ACUTE LEFT SIGMOID (MILD) DIVERTICULITIS WITH BLEEDING: -CT abd/pelvis on admission + mild sigmoid diverticulitis. No evidence of abscess or perforation - remains afebrile, no leukocytosis -IV Antibiotics- Zosyn x 2 days ---> Changed to Cipro/Flagyl Day 03/27 as above per GI ACUTE BLOOD LOSS ANEMIA - Likely diverticular bleeding - s/p 2 units pRBC Hg improved to 9--> 8.8 -- stable Hg so far changed protonix to BID HYPOPHOSPHATEMIA - replete and monitor CHEST PAIN AND DYSPNEA, RESOLVED - Likely related to above - Had an episode of chest pain/SOB -CT chest was done- no acute abnormalities noted -EKG- no sig ischemic changes, Troponin negative IPMN - monitor as outpatient possible repeat CT in 1 year CKD STAGE 3 - stable WELL-CONTROLLED DM 2 -recent A1C 5.8 -hold metformin - ISS -monitor BSG AC HS HYPOTHYROIDISM -cont levothyroxine HTN -BP stable -cont metoprolol DYSLIPIDEMIA -Hold high-dose statin due to elevated LFTs PAIN CONTROL -Allergic to morphine/Oxycodone -IV Dilaudid 0.5 mg q 6 hours prn tolerating it, but using it much DVT PROPHYLAXIS Heparin SQ - hold due to bleeding. SCDS/TEDS CODE STATUS -DNR per discussion with patient upon admission DISPO anticipate d/c to [facility] tomorrow Current Inpatient Medications: Current Inpatient Medications Medications (Trade) Dose Ordered Sig/Faith Route Start Time Stop Time Status Last Admin Dose Admin Heparin Sodium (Porcine) (Heparin Sq 5000 Unit/0.5ml) 5,000 unit Q8H SQ 02/01/17 06:00 03/03/17 05:59 Future Hold 02/03/17 13:48 5,000 UNIT Ondansetron HCl (Zofran Inj) 4 mg Q6H PRN IV 01/31/17 22:15 03/02/17 22:14 02/05/17 04:51 4 MG Glucose (Glucose 40% Gel) 15-30 GRAMS 15 GRAMS... UD PRN PO 01/31/17 22:30 03/02/17 22:29 Glucose (Glucose Chew Tab) 4-8 Tablets 4 Tabl... UD PRN PO 01/31/17 22:30 03/02/17 22:29 Dextrose (Dextrose 50% 50ML Syringe) 25-50ML OF 50% DW IV FOR... UD PRN IV 01/31/17 22:30 03/02/17 22:29 Glucagon (Glucagon Inj) 1 mg UD PRN SQ 01/31/17 22:30 03/02/17 22:29 Allopurinol (Zyloprim Tab) 300 mg QAM PO 02/01/17 09:00 03/03/17 08:59 02/09/17 09:12 300 MG Atorvastatin Calcium (Lipitor Tab) 80 mg DAILY PO 02/01/17 09:00 03/03/17 08:59 Future Hold 02/01/17 07:45 80 MG Calcium/Vitamin D (Caltrate Plus Tab) 1 tab QPM PO 02/01/17 21:00 03/03/17 20:59 Ferrous Sulfate (Feosol Tab) 325 mg QAM PO 02/01/17 09:00 03/03/17 08:59 02/09/17 09:12 325 MG Folic Acid (Folvite Tab) 1 mg QAM PO 02/01/17 09:00 03/03/17 08:59 02/09/17 09:11 1 MG Levothyroxine Sodium (Synthroid Tab) 75 mcg DAILYBB PO 02/01/17 06:30 03/03/17 06:59 02/09/17 06:37 75 MCG Metoprolol Succinate (Toprol Xl Tab) 25 mg DAILY PO 02/01/17 09:00 03/03/17 08:59 02/09/17 09:12 25 MG Multivitamins/ Minerals (Multivitamin W/ Minerals Tab) 1 tab QAM PO 02/01/17 09:00 03/03/17 08:59 02/09/17 09:11 1 TAB Potassium Chloride (Klor-Con Tab) 20 meq DAILY PO 02/01/17 09:00 03/03/17 08:59 02/09/17 09:15 20 MEQ Insulin Aspart (novoLOG ASPART) SLIDING SCALE If C... ACHS SC 02/01/17 21:00 03/03/17 20:59 02/09/17 13:02 1 UNITS Tramadol HCl (Ultram Tab) 50 mg Q4H PRN PO 02/03/17 08:45 03/05/17 08:44 02/03/17 21:56 50 MG Bisacodyl (Dulcolax Tab) 5 mg BID PRN PO 02/03/17 08:45 03/05/17 08:44 Hydromorphone HCl (Dilaudid Inj) 0.5 mg Q6H PRN IV 02/03/17 22:00 02/17/17 21:59 02/04/17 18:46 0.5 MG Simethicone (Mylicon Drops) 80 mg Q6H PRN PO 02/05/17 17:30 03/07/17 17:29 02/05/17 21:41 80 MG Enteral Nutritional Formula (Boost Breeze Nutritional Drink) 1 box [id number] PO 02/06/17 17:00 03/08/17 16:59 02/07/17 08:05 1 BOX Ciprofloxacin (Cipro Tab) 500 mg BID PO 02/07/17 21:00 02/13/17 20:59 02/09/17 09:11 500 MG Metronidazole 500 mg 500 mg TID PO 02/07/17 21:00 02/13/17 14:29 02/09/17 12:58 500 MG Pantoprazole Sodium/Syringe (Protonix Inj/ Syringe) 10 ml @ 5 mls/min BID@0900,2100 IV 02/08/17 21:30 03/10/17 21:29 02/09/17 09:10 5 MLS/MIN
[2017-02-09 15:36] VITALS: BP 104/64; PULSE 65; TEMP 37.1; O2SAT 96
[2017-02-10 00:07] VITALS: BP 113/74; PULSE 66; TEMP 36.9; O2SAT 96
[2017-02-10] MEDS: LEVOTHYROXINE 75 MCG TAB PO SCH (05:58)
[2017-02-10 06:09] LABS: BASO % 0.8 %; BASO ABS # 0.07 K/uL (0-0.2); COMPLETE YES; EOS % 6.3 %; HEMATOCRIT 27.6 % (37-47); IG% 0.5 %; MEAN CELL VOLUME 94.5 fL (80-100); MEAN CORPUSCULAR HEMOGLOBIN 31.2 pg (25-34); MEAN PLATELET VOLUME 10.3 fL (7.4-10.4); MONO % 8.4 %; PLATELET COUNT 418 K/uL (130-400); RED BLOOD COUNT 2.92 M/uL (4.2-5.4); WHITE BLOOD COUNT 8.26 K/uL (4.8-10.8)
[2017-02-10] MEDS: INSULIN ASPART 100 UNITS/ML 3 ML PEN SC SCH ×4 (06:30→20:34)
[2017-02-10 06:43] LABS: BUN/CREATININE RATIO 8.8 (10-20); CALCIUM 9.1 mg/dl (8.5-10.1); CREATININE 0.98 mg/dl (0.60-1.20); POTASSIUM 3.7 mmol/L (3.5-5.1)
[2017-02-10 07:04] LABS: PHOSPHORUS 3.3 mg/dl (2.5-4.9)
[2017-02-10 07:15] VITALS: BP 135/77; PULSE 73; TEMP 36.4; O2SAT 95
[2017-02-10] MEDS: ALLOPURINOL 300 MG TAB PO SCH (07:55)
[2017-02-10] MEDS: PANTOprazole INJ 40 MG in SYRINGE 0 ML IV SCH ×2 (07:55→20:32)
[2017-02-10] MEDS: METOPROLOL SUCC 25MG EXT REL TAB PO SCH (07:55)
[2017-02-10] MEDS: CEROVITE ADV FORMULA TAB PO SCH (07:56)
[2017-02-10] MEDS: POTASSIUM CHLORIDE 20 MEQ TABCR PO SCH (07:56)
[2017-02-10] MEDS: METRONIDAZOLE 500 MG TAB PO SCH ×3 (07:56→20:31)
[2017-02-10] MEDS: CIPROFLOXACIN 500 MG TAB PO SCH ×2 (07:56→20:31)
[2017-02-10] MEDS: BOOST BREEZE NUTRITION DRINK 1 BOX PO SCH ×2 (07:57→17:21)
[2017-02-10] MEDS: FERROUS SULFATE 325 MG TAB PO SCH (07:57)
[2017-02-10 08:00] VITALS: O2SAT 95
--- NOTE | 2017-02-10 13:51 | Progress Note ---
Medicine Progress Note Date & Time of Visit: Feb 10, 2017 at 13:42. Subjective patient seen resting in bed in good spirits states she feels fine overall tolerating soft diet, denies abdominal pain, nausea/vomiting, hematochezia no chest pain, dyspnea, dizziness states she is ready for discharge today Objective Last 8 Hrs Date Time Temp Pulse Resp B/P Pulse Ox O2 Delivery O2 Flow Rate FiO2 02/10/17 08:00 95 Room Air 02/10/17 07:15 36.4 73 20 135/77 95 Room Air Physical Exam: General- oriented x 3, not in distress, speaks in sentences with no effort, no acc muscle use bright, alert Neck- no JVD Lungs-clear breath sounds bilaterally Heart- normal rate, regular rhythm; no murmurs Abdomen- normal bowel sounds, non distended, soft, no tenderness Extremities- no pretibial edema, no calf tenderness Neuro- alert, oriented x 3; no gross focal deficits Skin- warm & dry Laboratory Results: Last 24 Hours Test 02/09/17 16:39 02/09/17 20:04 02/10/17 05:40 Bedside Glucose 124 mg/dl 162 mg/dl White Blood Count 8.26 K/uL Red Blood Count 2.92 M/uL Hemoglobin 9.1 g/dL Hematocrit 27.6 % Mean Corpuscular Volume 94.5 fL Mean Corpuscular Hemoglobin 31.2 pg Mean Corpuscular Hemoglobin Concent 33.0 g/dl Platelet Count 418 K/uL Mean Platelet Volume 10.3 fL Neutrophils (%) (Auto) 61.0 % Lymphocytes (%) (Auto) 23.0 % Monocytes (%) (Auto) 8.4 % Eosinophils (%) (Auto) 6.3 % Basophils (%) (Auto) 0.8 % Neutrophils # (Auto) 5.04 K/uL Lymphocytes # (Auto) 1.90 K/uL Monocytes # (Auto) 0.69 K/uL Eosinophils # (Auto) 0.52 K/uL Basophils # (Auto) 0.07 K/uL RDW Standard Deviation 59.3 fL RDW Coefficient of Variation 19.4 % Immature Granulocyte % (Auto) 0.5 % Immature Granulocyte # (Auto) 0.04 K/uL Nucleated RBC Absolute Count (auto) 0.02 K/uL Nucleated Red Blood Cells % 0.2 % Sodium Level 143 mmol/L Potassium Level 3.7 mmol/L Chloride Level 110 mmol/L Carbon Dioxide Level 23 mmol/L Anion Gap 10.0 mmol/L Blood Urea Nitrogen 9 mg/dl Creatinine 0.98 mg/dl Est Creatinine Clear Calc Drug Dose 35.5 ml/min Estimated GFR () 61.4 Estimated GFR (Non- 53.0 BUN/Creatinine Ratio 8.8 Random Glucose 121 mg/dl Calcium Level 9.1 mg/dl Phosphorus Level 3.3 mg/dl Total Bilirubin 1.6 mg/dl Direct Bilirubin 1.0 mg/dl Aspartate Amino Transf (AST/SGOT) 120 U/L Alanine Aminotransferase (ALT/SGPT) 133 U/L Alkaline Phosphatase 977 U/L Total Protein 6.1 gm/dl Albumin 2.2 gm/dl Assessment & Plan 86 year old female with DM, HTN presenting with abdominal pain CHOLANGITIS, PAPILLARY STENOSIS, S/P PANCREATIC AND CBD STENT PLACEMENTT -S/P ERCP on 02/01/17- Biliary papillary stenosis, spinchterotomy performed, Bile duct swept with sludge and bile, Pancreatic duct- 1 stent placed, Bile duct - 1 stent placed. Plan was to remove stent in 6 weeks, - 02/03: (+) hematemesis, increasing LFTs CT abd/pelvis - ? ascending cholangitis, however, no fever, RUQ tenderness +. No bile duct dilation noted. -IV Zosyn x 2 ---> Changed to IV Cipro/Flagyl - 02/04: s/p repeat ERCP, Cauterization of Bleeding Papillary Stenosis site, replacement of Pancreatic Duct Stent - afebrile, GI symptoms resolving LFTs decreasing Bilirubin decreasing - tolerating soft diet well - overall improved cleared for discharge today continue Cipro and Metro x total of 14 days Protonix drip changed to BID - ff up with GI Dr. Vann in 2 weeks ACUTE LEFT SIGMOID (MILD) DIVERTICULITIS WITH BLEEDING: -CT abd/pelvis on admission + mild sigmoid diverticulitis. No evidence of abscess or perforation - remained afebrile, no leukocytosis -IV Antibiotics- Zosyn x 2 days ---> Changed to Cipro/Flagyl Day 7/14 as above per GI ACUTE BLOOD LOSS ANEMIA - Likely diverticular bleeding - s/p 2 units pRBC Hg improved to 9--> 8.8 -- Hg stable ~9 so far -- continue Protonix BID HYPOPHOSPHATEMIA - repleted CHEST PAIN AND DYSPNEA, RESOLVED - Likely related to above - Had an episode of chest pain/SOB -CT chest was done- no acute abnormalities noted -EKG- no sig ischemic changes, Troponin negative IPMN - CT abdomen: An 8 mm hypodense lesion within the pancreatic head. 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 - ff up with GI - monitor as outpatient repeat CT in 1 year CKD STAGE 3 - stable WELL-CONTROLLED DM 2 -recent A1C 5.8 -held metformin - ISS -monitor BSG AC HS HYPOTHYROIDISM -cont levothyroxine HTN -BP stable -cont metoprolol DYSLIPIDEMIA -Hold high-dose statin due to elevated LFTs PAIN CONTROL -Allergic to morphine/Oxycodone -IV Dilaudid 0.5 mg q 6 hours prn tolerating it, but using it much DVT PROPHYLAXIS Heparin SQ - hold due to bleeding. SCDS/TEDS CODE STATUS -DNR per discussion with patient upon admission DISPO d/c to [facility] today ff up with PCP Dr. 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 Elsa Vann in 2 weeks Current Inpatient Medications: Current Inpatient Medications Medications (Trade) Dose Ordered Sig/Faith Route Start Time Stop Time Status Last Admin Dose Admin Heparin Sodium (Porcine) (Heparin Sq 5000 Unit/0.5ml) 5,000 unit Q8H SQ 02/01/17 06:00 03/03/17 05:59 Future Hold 02/03/17 13:48 5,000 UNIT Ondansetron HCl (Zofran Inj) 4 mg Q6H PRN IV 01/31/17 22:15 03/02/17 22:14 02/05/17 04:51 4 MG Glucose (Glucose 40% Gel) 15-30 GRAMS 15 GRAMS... UD PRN PO 01/31/17 22:30 03/02/17 22:29 Glucose (Glucose Chew Tab) 4-8 Tablets 4 Tabl... UD PRN PO 01/31/17 22:30 03/02/17 22:29 Dextrose (Dextrose 50% 50ML Syringe) 25-50ML OF 50% DW IV FOR... UD PRN IV 01/31/17 22:30 03/02/17 22:29 Glucagon (Glucagon Inj) 1 mg UD PRN SQ 01/31/17 22:30 03/02/17 22:29 Allopurinol (Zyloprim Tab) 300 mg QAM PO 02/01/17 09:00 03/03/17 08:59 02/10/17 07:55 300 MG Atorvastatin Calcium (Lipitor Tab) 80 mg DAILY PO 02/01/17 09:00 03/03/17 08:59 Future Hold 02/01/17 07:45 80 MG Calcium/Vitamin D (Caltrate Plus Tab) 1 tab QPM PO 02/01/17 21:00 03/03/17 20:59 02/09/17 22:49 1 TAB Ferrous Sulfate (Feosol Tab) 325 mg QAM PO 02/01/17 09:00 03/03/17 08:59 02/10/17 07:57 325 MG Folic Acid (Folvite Tab) 1 mg QAM PO 02/01/17 09:00 03/03/17 08:59 02/10/17 07:56 1 MG Levothyroxine Sodium (Synthroid Tab) 75 mcg DAILYBB PO 02/01/17 06:30 03/03/17 06:59 02/10/17 05:58 75 MCG Metoprolol Succinate (Toprol Xl Tab) 25 mg DAILY PO 02/01/17 09:00 03/03/17 08:59 02/10/17 07:55 25 MG Multivitamins/ Minerals (Multivitamin W/ Minerals Tab) 1 tab QAM PO 02/01/17 09:00 03/03/17 08:59 02/10/17 07:56 1 TAB Potassium Chloride (Klor-Con Tab) 20 meq DAILY PO 02/01/17 09:00 03/03/17 08:59 02/10/17 07:56 20 MEQ Insulin Aspart (novoLOG ASPART) SLIDING SCALE If C... ACHS SC 02/01/17 21:00 03/03/17 20:59 02/10/17 11:00 2 UNITS Tramadol HCl (Ultram Tab) 50 mg Q4H PRN PO 02/03/17 08:45 03/05/17 08:44 02/03/17 21:56 50 MG Bisacodyl (Dulcolax Tab) 5 mg BID PRN PO 02/03/17 08:45 03/05/17 08:44 Hydromorphone HCl (Dilaudid Inj) 0.5 mg Q6H PRN IV 02/03/17 22:00 02/17/17 21:59 02/04/17 18:46 0.5 MG Simethicone (Mylicon Drops) 80 mg Q6H PRN PO 02/05/17 17:30 03/07/17 17:29 02/05/17 21:41 80 MG Enteral Nutritional Formula (Boost Breeze Nutritional Drink) 1 box [id number] PO 02/06/17 17:00 03/08/17 16:59 02/10/17 07:57 1 BOX Ciprofloxacin (Cipro Tab) 500 mg BID PO 02/07/17 21:00 02/13/17 20:59 02/10/17 07:56 500 MG Metronidazole 500 mg 500 mg TID PO 02/07/17 21:00 02/13/17 14:29 02/10/17 13:22 500 MG Pantoprazole Sodium/Syringe (Protonix Inj/ Syringe) 10 ml @ 5 mls/min BID@0900,2100 IV 02/08/17 21:30 03/10/17 21:29 02/10/17 07:55 5 MLS/MIN
[2017-02-10] MEDS ORDERED: PANT1TAB48 PO (13:54)
[2017-02-10] MEDS ORDERED: CPR/500 PO (13:54)
[2017-02-10] MEDS ORDERED: METR-163 PO (13:54)
[2017-02-10] MEDS ORDERED: Boost Nutritional Drink PO (13:54)
--- NOTE | 2017-02-10 14:09 | Discharge Instructions ---
Discharge Instructions Date of Service Feb 10, 2017. Admission Reason for Admission: Cholangitis, Diverticulitis Discharge Discharge Diagnosis / Problem: CHOLANGITIS, DIVERTICULITIS Discharge Goals Goal(s): Diagnostic testing, Therapeutic intervention Activity Recommendations Activity Level: Assistance Required Therapies: Physical Therapy, Occupational Therapy . Additional Information Patient informed of condition: Yes Advance Directives: No (UNKNOWN) DNR: Yes Level of Care: Skilled Communicable Disease: No Prognosis: Stable Instructions / Follow-Up Instructions / Follow-Up REPEAT HEMOGLOBIN AND POTASSIUM THIS WEEK. NO NSAIDS, ASPIRIN, BLOOD THINNERS (RE: HISTORY OF GI BLEED). STATIN HELD DUE TO ELEVATED LFTS. REPEAT CT ABDOMEN IN 1 YEAR TO FOLLOW UP PANCREATIC LESION. FOLLOW UP WITH PRIMARY CARE PHYSICIAN DR. HAILEY KIMBROUGH ON WEDNESDAY FEBRUARY 15, 2017 AT 1:20PM. FOLLOW UP WITH FINISH PHOTOGRAPHER DR. KIMBERLY BAZAN IN 2 WEEKS. PLEASE REFER TO ACCOMPANYING DISCHARGE SUMMARY FOR FURTHER DETAILS. Current Hospital Diet Patient's current hospital diet: AHA Diet (Heart Healthy) Discharge Diet Recommended Diet: AHA Diet (Heart Healthy), Diabetes Type 2 Diet Procedures Procedures Performed: 02/01/17: Endoscopic Retrograde Cholangiopancreatogram and upper endoscopy s/p Pancreatic and Biliary Stent Placement 02/04/17: Endoscopic Retrograde Cholangiopancreatogram and upper endoscopy, stent removal, covered metal stent placement, epinephrine and cautery treatment for bleeding. Pending Studies Studies pending at discharge: yes List of pending studies: REPEAT HEMOGLOBIN AND POTASSIUM IN 3-5 days; REPEAT CT ABDOMEN IN 1 YEAR Physician Orders On Transfer Special Precautions: REPEAT HEMOGLOBIN AND POTASSIUM THIS WEEK. NO NSAIDS, ASPIRIN, BLOOD THINNERS (RE: HISTORY OF GI BLEED). STATIN HELD DUE TO ELEVATED LFTS. REPEAT CT ABDOMEN IN 1 YEAR TO FOLLOW UP PANCREATIC LESION. FOLLOW UP WITH PRIMARY CARE PHYSICIAN DR. HAILEY KIMBROUGH ON WEDNESDAY FEBRUARY 15, 2017 AT 1:20PM. FOLLOW UP WITH FINISH PHOTOGRAPHER DR. KIMBERLY BAZAN IN 2 WEEKS. PLEASE REFER TO ACCOMPANYING DISCHARGE SUMMARY FOR FURTHER DETAILS. Medical Emergencies . Who to Call and When: Medical Emergencies: If at any time you feel your situation is an emergency, please call 911 immediately. . Non-Emergent Contact Non-Emergency issues call your: Primary Care Provider Call Non-Emergent contact if: you have a fever, your pain is not controlled, you have any medication questions . 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 "Provider Documentation" section prepared by Sabas Miranda. . Core Measure Problem Core Measures: None
[2017-02-10 14:53] VITALS: BP 106/68; PULSE 69; TEMP 37; O2SAT 93
[2017-02-10 16:00] VITALS: O2SAT 95
[2017-02-10] MEDS: CALCIUM 600MG + VIT D 400 IU TAB PO SCH (20:32)
[2017-02-11 00:09] VITALS: BP 113/68; PULSE 70; TEMP 36.6; O2SAT 93
[2017-02-11] MEDS: LEVOTHYROXINE 75 MCG TAB PO SCH (06:31)
[2017-02-11 07:29] VITALS: BP 125/71; PULSE 69; TEMP 36.6; O2SAT 94
[2017-02-11] MEDS: ALLOPURINOL 300 MG TAB PO SCH (07:44)
[2017-02-11] MEDS: FERROUS SULFATE 325 MG TAB PO SCH (07:44)
[2017-02-11] MEDS: PANTOprazole INJ 40 MG in SYRINGE 0 ML IV SCH (07:44)
[2017-02-11] MEDS: CIPROFLOXACIN 500 MG TAB PO SCH (07:45)
[2017-02-11] MEDS: METOPROLOL SUCC 25MG EXT REL TAB PO SCH (07:45)
[2017-02-11] MEDS: CEROVITE ADV FORMULA TAB PO SCH (07:45)
[2017-02-11] MEDS: METRONIDAZOLE 500 MG TAB PO SCH ×2 (07:45→13:01)
[2017-02-11] MEDS: POTASSIUM CHLORIDE 20 MEQ TABCR PO SCH (07:45)
[2017-02-11] MEDS: BOOST BREEZE NUTRITION DRINK 1 BOX PO SCH (07:45)
[2017-02-11 08:00] VITALS: O2SAT 94
[2017-02-11] MEDS: INSULIN ASPART 100 UNITS/ML 3 ML PEN SC SCH ×2 (08:43→11:00)
[2017-02-11 11:23] VITALS: BP 125/71; PULSE 69; TEMP 36.6; O2SAT 94
[2017-02-11] MEDS ORDERED: CPR/500 PO (11:26)
[2017-02-11] MEDS ORDERED: METR-163 PO (11:26)
--- NOTE | 2017-02-11 11:46 | Progress Note ---
Medicine Progress Note Date & Time of Visit: February 11, 2017 at 11:39. Subjective seen resting in bed, comfortable but upset as staff was not able to answer her call humphreys soon apologized to patient, she was more relaxed after has "rumbles" in her stomach, but tolerating diet well, denies pain, diarrhea, nausea no other symptoms very eager for discharge, states she is ready Objective Last 8 Hrs Date Time Temp Pulse Resp B/P Pulse Ox O2 Delivery O2 Flow Rate FiO2 02/11/17 11:23 36.6 69 18 94 Room Air 02/11/17 08:00 94 Room Air 02/11/17 07:29 36.6 69 18 125/71 94 Room Air Physical Exam: General- oriented x 3, not in distress, speaks in sentences with no effort, no acc muscle use bright, alert Neck- no JVD Lungs-clear breath sounds b/l, no rales Heart- normal rate, regular rhythm; no murmurs Abdomen- normal bowel sounds, non distended, soft, non tender Extremities- no pretibial edema, no calf tenderness Neuro- alert, oriented x 3; no gross focal deficits Skin- warm & dry Laboratory Results: Last 24 Hours Test 02/10/17 16:28 02/10/17 19:39 02/11/17 06:28 02/11/17 07:30 Bedside Glucose 102 mg/dl 194 mg/dl 133 mg/dl Phosphorus Level 2.9 mg/dl Assessment & Plan 86 year old female with DM, HTN presenting with abdominal pain CHOLANGITIS, PAPILLARY STENOSIS, S/P PANCREATIC AND CBD STENT PLACEMENT - presented with abdominal pain and elevated LFTs - s/p ERCP on 02/01/17- Biliary papillary stenosis, spinchterotomy performed, Bile duct swept with sludge and bile, Pancreatic duct- 1 stent placed, Bile duct - 1 stent placed. - however, on 02/03/17: (+) hematemesis, increasing LFTs CT abd/pelvis - possible ascending cholangitis - IV Zosyn changed to IV Cipro/Flagyl -s/p repeat ERCP 02/04/[address] Elsa Vann: s/p Cauterization of Bleeding Papillary Stenosis site, replacement of Pancreatic Duct Stent - since then, patient remained afebrile, GI symptoms resolved LFTs and Bilirubin levels gradually decreased clinically improved - tolerating soft diet well - overall improved cleared for discharge continue Cipro and Metro PO x 6 more days to complete total of 14 days Protonix drip changed to Protonix PO BID until GI follow up - ff up with GI Dr. Elsa Vann in 2 weeks - monitor for signs fo jaundice, abdominal pain, nausea, hematemesis, hematochezia ACUTE LEFT SIGMOID (MILD) DIVERTICULITIS WITH BLEEDING: -CT abd/pelvis on admission + mild sigmoid diverticulitis. No evidence of abscess or perforation - remained afebrile, no leukocytosis -IV Antibiotics- Zosyn ---> Changed to Cipro/Flagyl x 6 more days to complete total of 14 days ACUTE BLOOD LOSS ANEMIA - Likely diverticular bleeding - s/p 2 units pRBC Hg improved to 9--> 8.8 -- Hg stable ~9 so far Protonix drip changed to Protonix PO BID until GI follow up -- repeat Hg this week HYPOPHOSPHATEMIA - repleted - repeat K this week for borderline low K CHEST PAIN AND DYSPNEA, RESOLVED - Likely related to above - Had an episode of chest pain/SOB -CT chest was done- no acute abnormalities noted -EKG- no sig ischemic changes, Troponin negative IPMN - CT abdomen: An 8 mm hypodense lesion within the pancreatic head. 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 - ff up with GI - monitor as outpatient repeat CT in 1 year CKD STAGE 3 - stable WELL-CONTROLLED DM 2 -recent A1C 5.8 -held metformin - ISS -monitor BSG AC HS HYPOTHYROIDISM -cont levothyroxine HTN -BP stable -cont metoprolol DYSLIPIDEMIA -Hold high-dose statin due to elevated LFTs PAIN CONTROL -Allergic to morphine/Oxycodone -IV Dilaudid 0.5 mg q 6 hours prn tolerating it, but using it much DVT PROPHYLAXIS Heparin SQ - hold due to bleeding. SCDS/TEDS CODE STATUS -DNR per discussion with patient upon admission DISPO d/c to [facility] today ff up with PCP Dr. Jeff Good in 1 week ff up with Aerial Tram Operator Dr. Elsa Vann in 2 weeks Current Inpatient Medications: Current Inpatient Medications Medications (Trade) Dose Ordered Sig/Faith Route Start Time Stop Time Status Last Admin Dose Admin Heparin Sodium (Porcine) (Heparin Sq 5000 Unit/0.5ml) 5,000 unit Q8H SQ 02/01/17 06:00 03/03/17 05:59 Future Hold 02/03/17 13:48 5,000 UNIT Ondansetron HCl (Zofran Inj) 4 mg Q6H PRN IV 01/31/17 22:15 03/02/17 22:14 02/05/17 04:51 4 MG Glucose (Glucose 40% Gel) 15-30 GRAMS 15 GRAMS... UD PRN PO 01/31/17 22:30 03/02/17 22:29 Glucose (Glucose Chew Tab) 4-8 Tablets 4 Tabl... UD PRN PO 01/31/17 22:30 03/02/17 22:29 Dextrose (Dextrose 50% 50ML Syringe) 25-50ML OF 50% DW IV FOR... UD PRN IV 01/31/17 22:30 03/02/17 22:29 Glucagon (Glucagon Inj) 1 mg UD PRN SQ 01/31/17 22:30 03/02/17 22:29 Allopurinol (Zyloprim Tab) 300 mg QAM PO 02/01/17 09:00 03/03/17 08:59 02/11/17 07:44 300 MG Atorvastatin Calcium (Lipitor Tab) 80 mg DAILY PO 02/01/17 09:00 03/03/17 08:59 Future Hold 02/01/17 07:45 80 MG Calcium/Vitamin D (Caltrate Plus Tab) 1 tab QPM PO 02/01/17 21:00 03/03/17 20:59 02/10/17 20:32 1 TAB Ferrous Sulfate (Feosol Tab) 325 mg QAM PO 02/01/17 09:00 03/03/17 08:59 02/11/17 07:44 325 MG Folic Acid (Folvite Tab) 1 mg QAM PO 02/01/17 09:00 03/03/17 08:59 02/11/17 07:45 1 MG Levothyroxine Sodium (Synthroid Tab) 75 mcg DAILYBB PO 02/01/17 06:30 03/03/17 06:59 02/11/17 06:31 75 MCG Metoprolol Succinate (Toprol Xl Tab) 25 mg DAILY PO 02/01/17 09:00 03/03/17 08:59 02/11/17 07:45 25 MG Multivitamins/ Minerals (Multivitamin W/ Minerals Tab) 1 tab QAM PO 02/01/17 09:00 03/03/17 08:59 02/11/17 07:45 1 TAB Potassium Chloride (Klor-Con Tab) 20 meq DAILY PO 02/01/17 09:00 03/03/17 08:59 02/11/17 07:45 20 MEQ Insulin Aspart (novoLOG ASPART) SLIDING SCALE If C... ACHS SC 02/01/17 21:00 03/03/17 20:59 02/11/17 08:43 1 UNITS Tramadol HCl (Ultram Tab) 50 mg Q4H PRN PO 02/03/17 08:45 03/05/17 08:44 02/03/17 21:56 50 MG Bisacodyl (Dulcolax Tab) 5 mg BID PRN PO 02/03/17 08:45 03/05/17 08:44 Hydromorphone HCl (Dilaudid Inj) 0.5 mg Q6H PRN IV 02/03/17 22:00 02/17/17 21:59 02/04/17 18:46 0.5 MG Simethicone (Mylicon Drops) 80 mg Q6H PRN PO 02/05/17 17:30 03/07/17 17:29 02/05/17 21:41 80 MG Enteral Nutritional Formula (Boost Breeze Nutritional Drink) 1 box BID17 PO 02/06/17 17:00 03/08/17 16:59 02/10/17 17:21 1 BOX Ciprofloxacin (Cipro Tab) 500 mg BID PO 02/07/17 21:00 02/13/17 20:59 02/11/17 07:45 500 MG Metronidazole 500 mg 500 mg TID PO 02/07/17 21:00 02/13/17 14:29 02/11/17 07:45 500 MG Pantoprazole Sodium/Syringe (Protonix Inj/ Syringe) 10 ml @ 5 mls/min BID@0900,2100 IV 02/08/17 21:30 03/10/17 21:29 02/11/17 07:44 5 MLS/MIN
--- NOTE | 2017-02-11 11:49 | Discharge Summary ---
Discharge Summary Date of Service February 11, 2017. Discharge Summary Admission Date: Jan 31, 2017 at 22:21 Discharge Date: February 11, 2018 Discharge Disposition: [facility] facility Principal Diagnosis: CHOLANGITIS, PAPILLARY STENOSIS, S/P PANCREATIC AND COMMON BILE DUCT STENT PLACEMENT Secondary Diagnoses/Problems: PLEASE REFER TO HOSPITAL COURSE BELOW. Procedures: 02/01/17: Endoscopic Retrograde Cholangiopancreatogram and upper endoscopy s/p Pancreatic and Biliary Stent Placement; 02/04/17: Endoscopic Retrograde Cholangiopancreatogram and upper endoscopy, stent removal, covered metal stent placement, epinephrine and cautery treatment for bleeding. Consultations: FIELD SERVICE SUPERVISOR DR. ELSA VANN Pending Studies/Follow-Up: REPEAT HEMOGLOBIN AND POTASSIUM THIS WEEK. NO NSAIDS, ASPIRIN, BLOOD THINNERS (RE: HISTORY OF GI BLEED). STATIN HELD DUE TO ELEVATED LFTS. REPEAT CT ABDOMEN IN 1 YEAR TO FOLLOW UP PANCREATIC LESION. FOLLOW UP WITH PRIMARY CARE PHYSICIAN DR. HAILEY KIMBROUGH ON WEDNESDAY FEBRUARY 15, 2017 AT 1:20PM. FOLLOW UP WITH FIELD SERVICE SUPERVISOR DR. ELSA VANN IN 2 WEEKS. PLEASE REFER TO HOSPITAL COURSE BELOW FOR FURTHER DETAILS. Medication Reconciliation New Medications: Pantoprazole (Protonix) 40 Mg Tab 40 MG PO BID for 30 Days, #60 TAB 1 Refill [Boost Nutritional Drink] () 1 BOX LIQD 1 BOX PO BID17 for 30 Days, #60 BOX 2 Refills Continued Medications: Acetaminophen (Tylenol) 325 Mg Tab 650 MG PO BID PRN for Pain, TAB Allopurinol (Allopurinol) 300 Mg Tab 300 MG PO QAM Calcium/Vitamin D (Caltrate 600 Plus *) Tab 1 TAB PO QPM, 0 Refills Ciprofloxacin (Ciprofloxacin HCl) 500 Mg Tab 500 MG PO BID for 6 Days, #12 TABS 0 Refills (This prescription has been renewed ) Ferrous Sulfate (Ferrous Sulfate) 325 Mg Tab 325 MG PO QAM Fish Oil ([place]-3) 1 Ea Cap 1000 MG PO QAM, 0 Refills Folic Acid (Folic Acid) 1 Mg Tab 1 MG PO QAM Levothyroxine Sodium (Synthroid) 75 Mcg Tab 75 MCG PO QAM, TAB Metformin Ext Rel (Glucophage Ext Rel) 500 Mg Tab 500 MG PO BID, TAB Metoprolol Succinate (Metoprolol Succinate ER) 25 Mg Tabcr 25 MG PO DAILY, #90 Metronidazole (Flagyl) 500 Mg Tab 500 MG PO TID for 6 Days, #18 TAB 0 Refills (This prescription has been renewed) Multivitamins/Minerals (Mvi With Minerals) Tab 1 TAB PO QAM, TAB Potassium Ext Rel (Klor-Con) 20 Meq Tabcr 20 MEQ PO DAILY, #90 Discontinued Medications: Atorvastatin (Lipitor) 80 Mg Tab 80 MG PO DAILY, TAB Omeprazole (Prilosec) 20 Mg Capcr 20 MG PO BID, CAP Admission Information HPI (per Admitting provider): This is an 86 y/o female with PMHx of well-controlled DM2, CKD stage 3, Hypothyroidism, HTN, Dyslipidemia and other problems as outlined below who presents to the ED from Dr. Anne's office due to abnormal labs. Pt reports that for the past 2 months she has been experiencing constipation with mild generalized abd pain. Over the past month, the abdominal pain has become more constant and localized in the LLQ. She also noticed that her stool is a gusset edger brown and her urine is dark. She has not had a good appetite but has been tolerating food when she eats. Pt was seen by PCP (Dr. Anne) today. He started course of Cipro/Flagyl for suspected diverticulitis which patient took one dose of. Bloodwork was later found to be abnormal and patient was directed to the emergency room for further evaluation. Pt denies fever/chills, diaphoresis, chest pain, SOB, N/V, hematochezia, melena, bladder issues, LE edema ,calf pain , lightheadedness/dizziness. In the ED, vitals are stable. Pt is afebrile with leukocytosis >11k. Total bili 3.3. Direct bili 2.3. AST 613. ALT 497. Alk Phos 999. Lipase 1347. CT abd/pelvis + suggestive of ascending cholangitis and mild sigmoid diverticulitis. Pt is stable and will be admitted for further evaluation and treatment. Physical Exam (per Admitting): General Appearance: WD/WN, no apparent distress, + pertinent finding (Pt is laying in bed with son at bedside ) Head: normocephalic, atraumatic Eyes: normal inspection ENT: hearing grossly normal Neck: supple Respiratory/Chest: chest non-tender, lungs clear, normal breath sounds, no respiratory distress Cardiovascular: regular rate, rhythm, no edema, no murmur Abdomen/GI: normal bowel sounds, soft, + tenderness (+LLQ; +mild RUQ ) Back: normal inspection Extremities/Musculoskelatal: normal inspection, no calf tenderness, no pedal edema Neurologic/Psych: alert, normal mood/affect, oriented x 3 Skin: warm/dry, + jaundice Hospital Course 86 year old female with DM, HTN presenting with abdominal pain CHOLANGITIS, PAPILLARY STENOSIS, S/P PANCREATIC AND CBD STENT PLACEMENT - presented with abdominal pain and elevated LFTs - s/p ERCP on 02/01/17- Biliary papillary stenosis, spinchterotomy performed, Bile duct swept with sludge and bile, Pancreatic duct- 1 stent placed, Bile duct - 1 stent placed. - however, on 02/03/17: (+) hematemesis, increasing LFTs CT abd/pelvis - possible ascending cholangitis - IV Zosyn changed to IV Cipro/Flagyl -s/p repeat ERCP 02/04/[address] Elsa Vann: s/p Cauterization of Bleeding Papillary Stenosis site, replacement of Pancreatic Duct Stent - since then, patient remained afebrile, GI symptoms resolved LFTs and Bilirubin levels gradually decreased clinically improved - tolerating soft diet well - overall improved cleared for discharge continue Cipro and Metro PO x 6 more days to complete total of 14 days Protonix drip changed to Protonix PO BID until GI follow up - ff up with GI Dr. Elsa Vann in 2 weeks - monitor for signs fo jaundice, abdominal pain, nausea, hematemesis, hematochezia ACUTE LEFT SIGMOID (MILD) DIVERTICULITIS WITH BLEEDING -CT abd/pelvis on admission + mild sigmoid diverticulitis. No evidence of abscess or perforation - remained afebrile, no leukocytosis -IV Antibiotics- Zosyn ---> Changed to Cipro/Flagyl x 6 more days to complete total of 14 days ACUTE BLOOD LOSS ANEMIA - Likely diverticular bleeding - s/p 2 units pRBC Hg improved to 9--> 8.8 -- Hg stable ~9 so far Protonix drip changed to Protonix PO BID until GI follow up -- repeat Hg this week HYPOPHOSPHATEMIA - repleted - repeat K this week for borderline low K CHEST PAIN AND DYSPNEA, RESOLVED - Likely related to above - Had an episode of chest pain/SOB -CT chest was done- no acute abnormalities noted -EKG- no sig ischemic changes, Troponin negative IPMN - CT abdomen: An 8 mm hypodense lesion within the pancreatic head. 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 - ff up with GI - monitor as outpatient repeat CT in 1 year CKD STAGE 3 - stable WELL-CONTROLLED DM 2 -recent A1C 5.8 -held metformin - ISS -monitor BSG AC HS HYPOTHYROIDISM -cont levothyroxine HTN -BP stable -cont metoprolol DYSLIPIDEMIA -Hold high-dose statin due to elevated LFTs PAIN CONTROL -Allergic to morphine/Oxycodone -IV Dilaudid 0.5 mg q 6 hours prn tolerating it, but using it much DVT PROPHYLAXIS Heparin SQ - hold due to bleeding. SCDS/TEDS CODE STATUS -DNR per discussion with patient upon admission DISPO d/c to [facility] ff up with PCP Dr. Hailey Kimbrough in 1 week ff up with Medical Communication Specialist Dr. Elsa Vann in 2 weeks Total time spent on discharge = 40 MINUTES This includes examination of the patient, discharge planning, medication reconciliation, and communication with other providers. Discharge Instructions Discharge Instructions Date of Service Feb 10, 2017. Admission Reason for Admission: Cholangitis, Diverticulitis Discharge Discharge Diagnosis / Problem: CHOLANGITIS, DIVERTICULITIS Discharge Goals Goal(s): Diagnostic testing, Therapeutic intervention Activity Recommendations Activity Level: Assistance Required Therapies: Physical Therapy, Occupational Therapy . Additional Information Patient informed of condition: Yes Advance Directives: No (UNKNOWN) DNR: Yes Level of Care: Skilled Communicable Disease: No Prognosis: Stable Instructions / Follow-Up Instructions / Follow-Up REPEAT HEMOGLOBIN AND POTASSIUM THIS WEEK. NO NSAIDS, ASPIRIN, BLOOD THINNERS (RE: HISTORY OF GI BLEED). STATIN HELD DUE TO ELEVATED LFTS. REPEAT CT ABDOMEN IN 1 YEAR TO FOLLOW UP PANCREATIC LESION. FOLLOW UP WITH PRIMARY CARE PHYSICIAN DR. HAILEY KIMBROUGH ON WEDNESDAY FEBRUARY 15, 2017 AT 1:20PM. FOLLOW UP WITH FIELD SERVICE SUPERVISOR DR. ELSA VANN IN 2 WEEKS. PLEASE REFER TO ACCOMPANYING DISCHARGE SUMMARY FOR FURTHER DETAILS. Current Hospital Diet Patient's current hospital diet: AHA Diet (Heart Healthy) Discharge Diet Recommended Diet: AHA Diet (Heart Healthy), Diabetes Type 2 Diet Procedures Procedures Performed: 02/01/17: Endoscopic Retrograde Cholangiopancreatogram and upper endoscopy s/p Pancreatic and Biliary Stent Placement 02/04/17: Endoscopic Retrograde Cholangiopancreatogram and upper endoscopy, stent removal, covered metal stent placement, epinephrine and cautery treatment for bleeding. Pending Studies Studies pending at discharge: yes List of pending studies: REPEAT HEMOGLOBIN AND POTASSIUM IN 3-5 days; REPEAT CT ABDOMEN IN 1 YEAR Physician Orders On Transfer Special Precautions: REPEAT HEMOGLOBIN AND POTASSIUM THIS WEEK. NO NSAIDS, ASPIRIN, BLOOD THINNERS (RE: HISTORY OF GI BLEED). STATIN HELD DUE TO ELEVATED LFTS. REPEAT CT ABDOMEN IN 1 YEAR TO FOLLOW UP PANCREATIC LESION. FOLLOW UP WITH PRIMARY CARE PHYSICIAN DR. HAILEY KIMBROUGH ON WEDNESDAY FEBRUARY 15, 2017 AT 1:20PM. FOLLOW UP WITH FIELD SERVICE SUPERVISOR DR. ELSA VANN IN 2 WEEKS. PLEASE REFER TO ACCOMPANYING DISCHARGE SUMMARY FOR FURTHER DETAILS. Medical Emergencies . Who to Call and When: Medical Emergencies: If at any time you feel your situation is an emergency, please call 911 immediately. . Non-Emergent Contact Non-Emergency issues call your: Primary Care Provider Call Non-Emergent contact if: you have a fever, your pain is not controlled, you have any medication questions . 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 "Provider Documentation" section prepared by Sabas Miranda. . Core Measure Problem Core Measures: None
[2017-03-14] MEDS ORDERED: OMEP40CA41 PO (07:23)
== END 2017-02-11 14:10 | DRG 444 ==
LOC: ENRESERVTM → ENRESERVDT → C.EDB 18:11 → C.MS2W 22:21
PROVIDERS: ADMIT Hospitalist; ATTEND Internal Medicine
PROC: 0F798DZ Dilation of Common Bile Duct with Intraluminal Device, Via Natural or Artificial Opening Endoscopic (ICD-10-PCS; principal; 2017-02-01 09:00)
PROC: 0F998ZZ Drainage of Common Bile Duct, Via Natural or Artificial Opening Endoscopic (ICD-10-PCS; principal; 2017-02-01 09:00)
PROC: 0F7D8DZ Dilation of Pancreatic Duct with Intraluminal Device, Via Natural or Artificial Opening Endoscopic (ICD-10-PCS; principal; 2017-02-01 09:00)
PROC: 0W3P8ZZ Control Bleeding in Gastrointestinal Tract, Via Natural or Artificial Opening Endoscopic (ICD-10-PCS; 2017-02-04)
PROC: 0F798DZ Dilation of Common Bile Duct with Intraluminal Device, Via Natural or Artificial Opening Endoscopic (ICD-10-PCS; 2017-02-04)
PROC: 0FPB8DZ Removal of Intraluminal Device from Hepatobiliary Duct, Via Natural or Artificial Opening Endoscopic (ICD-10-PCS; 2017-02-04)
DX: K83.0 Cholangitis (principal); K83.1 Obstruction of bile duct; K57.33 Diverticulitis of large intestine without perforation or abscess with bleeding; T85.590A Other mechanical complication of bile duct prosthesis, initial encounter; T85.598A Other mechanical complication of other gastrointestinal prosthetic devices, implants and grafts, initial encounter; K91.840 Postprocedural hemorrhage of a digestive system organ or structure following a digestive system procedure; D62 Acute posthemorrhagic anemia; Y73.2 Prosthetic and other implants, materials and accessory gastroenterology and urology devices associated with adverse incidents; Y83.8 Other surgical procedures as the cause of abnormal reaction of the patient, or of later complication, without mention of misadventure at the time of the procedure; E83.39 Other disorders of phosphorus metabolism; R07.9 Chest pain, unspecified; R06.02 Shortness of breath; E11.22 Type 2 diabetes mellitus with diabetic chronic kidney disease; I12.9 Hypertensive chronic kidney disease with stage 1 through stage 4 chronic kidney disease, or unspecified chronic kidney disease; N18.3 Chronic kidney disease, stage 3 (moderate); E03.9 Hypothyroidism, unspecified; E78.5 Hyperlipidemia, unspecified; K21.9 Gastro-esophageal reflux disease without esophagitis; R93.3 Abnormal findings on diagnostic imaging of other parts of digestive tract; Z66 Do not resuscitate; Z90.49 Acquired absence of other specified parts of digestive tract; Z87.891 Personal history of nicotine dependence; Z85.51 Personal history of malignant neoplasm of bladder; Z79.84 Long term (current) use of oral hypoglycemic drugs; Z79.899 Other long term (current) drug therapy; Z88.5 Allergy status to narcotic agent

== ENCOUNTER 2017-04-05 08:45 | Day surgery (SDC) | payer OTHER ==
[2017-03-14 07:25] VITALS: BMI 23.0
[~2017-04-05] VITALS: Ht 154.9 cm; Wt 56.8 kg
[~2017-04-05 08:45] MED LIST changes: -AMT24 PO; +Boost Nutritional Drink PO; +CIPROFLOXACIN 400MG / 200ML D5W IV SCH; -DOCU1TAB6 PO; -GLIP2.5T11 PO; +LACTATED RINGER'S 1000ML 1,000 ML IV SCH; -OMEG10007 PO; +OMEP40CA41 PO; +POTA20TA16 PO; -PRLSR20 PO; -ROSU5TAB PO; +TPRSR/25 PO; -TRIA1SPR4; -[UNRECOGNIZED DRUG - OTHER] OPB
[2017-04-05] MEDS ORDERED: LACTATED RINGER'S 1000ML 1,000 ML IV ONE (08:58)
[2017-04-05] MEDS ORDERED: INDOMETHACIN 50 MG SUPP PR SCH (09:00)
[2017-04-05 09:11] VITALS: BP 134/49; PULSE 67; TEMP 36.6; O2SAT 96; Ht 154.9 cm; Wt 56.8 kg
[2017-04-05] MEDS ORDERED: ONDANSETRON INJ 2 MG/ML 2 ML VIAL ONE (09:30)
[2017-04-05] MEDS ORDERED: NEOSTIGMINE METHYLSULFATE 5 MG/5 ML SYR ONE (09:30)
[2017-04-05] MEDS ORDERED: GLYCOPYRROLATE INJ 0.2 MG/ML VIAL ONE (09:30)
[2017-04-05] MEDS ORDERED: ROCURONIUM BROMIDE 10 MG/ML 5 ML VIAL ONE (09:30)
[2017-04-05] MEDS ORDERED: MIDAZOLAM HCL 1 MG/ML 2ML VIAL ONE (09:30)
[2017-04-05] MEDS ORDERED: FENTANYL CITRATE INJ 50 MCG/1 ML 2 ML VIAL ONE (09:30)
[2017-04-05] MEDS ORDERED: PROPOFOL IV EMULSION 10 MG/ML 20 ML VIAL IV ONE (09:30)
[2017-04-05] MEDS ORDERED: DEXAMETHASONE SOD INJ 4 MG/ML VIAL ONE (09:30)
[2017-04-05] MEDS ORDERED: LIDOCAINE HCL 2% 2 ML VIAL (20MG/ML) ONE (09:30)
--- NOTE | 2017-04-05 09:49 | Endo History and Physical ---
History & Physical Date of Service: Apr 05, 2017. Chief Complaint: Weakness Referring Physician: History of Present Illness Patient with a prior history of cholangitis, covered metal stent placed after initial ERCP due to a post-sphincterotomy bleed. She presents today for stent removal. Past Medical History Diabetes, Fractures, Anxiety, Reflux, Cancer, High Cholesterol, Hypertension, Thyroid Disease, Depression Past Surgical History Hx Cardiac Surgery: No Hx Abdominal Surgery: No ([facility]) Hx Post-Op Nausea and Vomiting: Yes Hx Cancer Surgery: No Hx Thoracic Surgery: Yes (CERVICAL FUSION (FROM A FALL)) Hx Orthopedic: No Hx Urinary Tract Surgery: No Social History Smoking Status: Never Smoker Hx Substance Use: No Hx Alcohol Use: No Allergies Coded Allergies: Mirtazapine (Verified Allergy, Mild, Increased Anxiety, 04/05/17) Oxycodone (Verified Adverse Reaction, Mild, GI SYMPTOMS, 04/05/17) Morphine (Verified Adverse Reaction, Unknown, NAUSEA, 04/05/17) Current Medications Reported Home Medications Medications Dose Route/Sig Max Daily Dose Days Date Category Prilosec (Omeprazole) 40 Mg Cap 40 Mg PO BID 03/14/17 Reported [Boost Nutritional Drink] 1 BOX Liqd 1 Box PO BID17 30 02/10/17 Rx Allopurinol 300 Mg Tab 300 Mg PO QPM 01/31/17 Reported Metoprolol Succinate ER (Metoprolol Succinate) 25 Mg Tabcr 25 Mg PO DAILY 01/31/17 Reported Klor-Con (Potassium Chloride) 20 Meq Tabcr 20 Meq PO DAILY 01/31/17 Reported Mvi With Minerals (Multivitamins/Minerals) Tab 1 Tab PO QAM 12/22/15 Reported Glucophage Ext Rel (Metformin HCl) 500 Mg Tab 500 Mg PO BID 12/22/15 Reported Tylenol (Acetaminophen) 325 Mg Tab 650 Mg PO BID PRN 12/24/14 Reported Folic Acid 1 Mg Tab 1 Mg PO QAM 12/24/14 Reported Ferrous Sulfate 325 Mg Tab 325 Mg PO QAM 12/24/12 Reported Synthroid (Levothyroxine Sodium) 75 Mcg Tab 75 Mcg PO QAM 12/24/12 Reported Caltrate 600 Plus * (Calcium/Vitamin D) Tab 1 Tab PO BID 01/05/09 Reported Vital Signs Weight (Kilograms): 56.82 Height (Feet): 5 Height (Inches): 1 Date Time Temp Pulse Resp B/P (MAP) Pulse Ox O2 Delivery O2 Flow Rate FiO2 04/05/17 09:11 36.6 67 18 134/49 (77) 96 Room Air Physical Exam General Appearance: no apparent distress Respiratory/Chest: Auscultation: breath sounds normal Cardiovascular: Heart Auscultation: II/ GROVER Abdomen: Inspection & Palpation: soft Assessment and Plan ERCP today for biliary stent removal. We have discussed the risks to include bleeding, infection, perforation, pain, pancreatitis, and failed cannulation.
--- NOTE | 2017-04-05 10:08 | Discharge Instructions ---
Endoscopy Patient Instructions Date / Procedure(s) Performed Apr 05, 2017. ERCP Allergy Information Coded Allergies: Mirtazapine (Verified Allergy, Mild, Increased Anxiety, 04/05/17) Oxycodone (Verified Adverse Reaction, Mild, GI SYMPTOMS, 04/05/17) Morphine (Verified Adverse Reaction, Unknown, NAUSEA, 04/05/17) Discharge Date / Findings Apr 05, 2017. Biliary and pancreatic stents removed Mild dilation of the common bile duct Medication Instructions Reported Home Medications Medications Dose Route/Sig Max Daily Dose Days Date Category Prilosec (Omeprazole) 40 Mg Cap 40 Mg PO BID 03/14/17 Reported [Boost Nutritional Drink] 1 BOX Liqd 1 Box PO BID17 30 02/10/17 Rx Allopurinol 300 Mg Tab 300 Mg PO QPM 01/31/17 Reported Metoprolol Succinate ER (Metoprolol Succinate) 25 Mg Tabcr 25 Mg PO DAILY 01/31/17 Reported Klor-Con (Potassium Chloride) 20 Meq Tabcr 20 Meq PO DAILY 01/31/17 Reported Mvi With Minerals (Multivitamins/Minerals) Tab 1 Tab PO QAM 12/22/15 Reported Glucophage Ext Rel (Metformin HCl) 500 Mg Tab 500 Mg PO BID 12/22/15 Reported Tylenol (Acetaminophen) 325 Mg Tab 650 Mg PO BID PRN 12/24/14 Reported Folic Acid 1 Mg Tab 1 Mg PO QAM 12/24/14 Reported Ferrous Sulfate 325 Mg Tab 325 Mg PO QAM 12/24/12 Reported Synthroid (Levothyroxine Sodium) 75 Mcg Tab 75 Mcg PO QAM 12/24/12 Reported Caltrate 600 Plus * (Calcium/Vitamin D) Tab 1 Tab PO BID 01/05/09 Reported Provider Instructions Activity Restrictions - No exercising or heavy lifting for 24 hours. - Do not drink alcohol the day of the procedure. - Do not drive a car or operate machinery until the day after the procedure. - Do not make any important decisions or sign important papers in 24 hours after the procedure. Following Day: - Return to full activity which may include returning to work/school. Diet Liquid diet today Regular diet on 04/06/17 Treatment For Common After Affects For mild abdominal pain, bloating, or excessive gas: - Rest - Eat lightly - Lie on right side Follow-Up Information Follow-up with Dr. Vann as needed Anesthesia Information What You Should Know You have had a procedure that required some medicine to reduce anxiety and discomfort. This treatment is called moderate sedation. After receiving the treatment, you may be sleepy, but you will be able to breathe on your own. The effects of the treatment may last for several hours. Follow these instructions along with Activity/Diet recommendations noted above: * Do NOT do anything where dizziness or clumsiness would be dangerous. * Rest quietly at home today, then you can be up and about tomorrow. * Have a responsible person stay with you the rest of today. * You may have had an I.V. today. If so, you may take the dressing off later today. Recommendations Call your doctor if: * Trouble breathing * Continuous vomiting for more than 24 hours * Temperature above 101 degrees * Severe abdominal pain or bloating * Pain not relieved by pain medicine ordered * There is increased drainage or redness from any incision * A large amount of rectal bleeding greater than 2-3 tablespoons. (If you had a polyp/s removed or have hemorrhoids, a small amount of blood - from the rectum is to be expected.) * You have any unanswered questions or concerns. IN THE EVENT OF A SERIOUS EMERGENCY, GO TO THE NEAREST EMERGENCY ROOM Your discharge instructions were prepared by provider Elsa Vann. Patient Instructions Signature Page Selina Rankin Patient (or Guardian) Signature/Date: I have read and understand the instructions given to me by my caregivers. Caregiver/RN/Doctor Signature/Date: The above-named patient and/or guardian has received patient instructions on this date. + Original Patient Signature Page (only) stays with chart. Please make copy for patient.
[2017-04-05] MEDS ORDERED: ONDANSETRON INJ 2 MG/ML 2 ML VIAL IV PRN ×2 (10:30→10:45)
[2017-04-05] MEDS ORDERED: FENTANYL CITRATE INJ 50 MCG/1 ML 2 ML VIAL IV PRN (10:30)
[2017-04-05] MEDS ORDERED: EpHEDrine SULFATE INJ 50 MG/ML AMP IV PRN (10:30)
[2017-04-05] MEDS ORDERED: ATROPINE SULFATE 0.1 MG/ML 5ML SYR IV PRN (10:30)
--- NOTE | 2017-04-05 10:40 | DIAGNOSTIC IMAGING REPORT ---
ERCP BILIARY DUCTAL CLINICAL HISTORY: Bile duct exploration COMPARISON STUDY: 02/04/2017 FLUOROSCOPY TIME: 60 seconds. 5 intraoperative fluoroscopic spot images are provided for interpretation.. FINDINGS: The common bile duct was cannulated in a retrograde fashion. There is mild dilatation of the common bile duct. The previous identified on bile duct stent is not visualized the current study. IMPRESSION: Interval removal of the common bile duct stent. Mild common bile duct dilatation. Electronically signed by: Ankur Chu M.D. 04/05/2017 10:39 AM Dictated Date/Time: 04/05/2017 10:37 AM
--- NOTE | 2017-04-05 10:41 | GI REPORT ---
Procedure Date: 04/05/2017 10:03 AM Procedure: ERCP Indications: Stent removal Medicines: General Anesthesia, Cipro 400 mg IV, Indocin 100 mg [place] Complications: No immediate complications. Estimated blood loss: Minimal. Estimated Blood Loss: Estimated blood loss was minimal. Procedure: Pre-Anesthesia Assessment: - Prior to the procedure, a History and Physical was performed, and patient medications, allergies and sensitivities were reviewed. The patient's tolerance of previous anesthesia was reviewed. - The risks and benefits of the procedure and the sedation options and risks were discussed with the patient. All questions were answered and informed consent was obtained. - Patient identification and proposed procedure were verified prior to the procedure by the physician, the nurse and the autobody technician. The procedure was verified in the procedure room. - Pre-procedure physical examination revealed no contraindications to sedation. - ASA Grade Assessment: III - A patient with severe systemic disease. - After reviewing the risks and benefits, the patient was deemed in satisfactory condition to undergo the procedure. - The anesthesia plan was to use general anesthesia. - Immediately prior to administration of medications, the patient was re-assessed for adequacy to receive sedatives. - The heart rate, respiratory rate, oxygen saturations, blood pressure, adequacy of pulmonary ventilation, and response to care were monitored throughout the procedure. - The physical status of the patient was re-assessed after the procedure. After obtaining informed consent, the scope was passed under direct vision. Throughout the procedure, the patient's blood pressure, pulse, and oxygen saturations were monitored continuously. The SCOPE was introduced through the mouth, and advanced to the duodenum and used to inject contrast into the bile duct. The ERCP was accomplished without difficulty. The patient tolerated the procedure well. Findings: The esophagus was successfully intubated under direct vision without detailed examination of the pharynx, larynx, and associated structures, and upper GI tract. The upper GI tract was grossly normal. Two covered metal pancreatic stents originating in the biliary tree and the pancreatic duct were emerging from the major papilla. The stents were partially occluded. One stent was removed from the pancreatic duct using a rat-toothed forceps. One stent was removed from the biliary tree using a rat-toothed forceps. The bile duct was deeply cannulated with the short-nosed traction sphincterotome (Omni 35) and 0.035 in Acrobat guidewire. Contrast was injected. I personally interpreted the bile duct images. Contrast extended to the bifurcation. The main bile duct was moderately dilated. The largest diameter was 12 mm. To discover objects, the biliary tree was swept with a 15 mm (Inject below) balloon starting at the bifurcation. Sludge was swept from the duct, no stones or strictures were seen. The endoscope was withdrawn from the patient. Impression: - Two partially occluded stents from the biliary tree and the pancreatic duct were seen in the major papilla. - One stent was removed from the pancreatic duct. - One stent was removed from the biliary tree. - The entire main bile duct was moderately dilated. - The biliary tree was swept and sludge was found. Recommendation: - Avoid aspirin and nonsteroidal anti-inflammatory medicines for 5 days. - Clear liquid diet today. - Observe patient's clinical course following today's ERCP with therapeutic intervention. - Return to my office PRN. Elsa Vann D.O. Elsa Vann, 04/05/2017 10:41:27 AM This report has been signed electronically. Note Initiated On: 04/05/2017 10:03 AM I attest to the content of the Intraoperative Record and orders documented therein, exceptions below
--- NOTE | 2017-04-05 10:44 | [facility] Post Operative Brief Note ---
Immediate Operative Summary Operative Date Apr 05, 2017. Pre-Operative Diagnosis Prior history of Cholangitis, Stent Removal Post-Operative Diagnosis Biliary sludge and Stent Removal Procedure(s) Performed Endoscopic Retrograde Cholangiopancreatogram with Stent Removal Surgeon Dr. Vann Abstractor Surgeon(s) none Estimated Blood Loss 0 cc Findings Dilation of the common bile duct No retained stones seen today Specimens none per surgeon Anesthesia General Complication(s) None Disposition Recovery Room / PACU
[2017-04-05 11:42] VITALS: BP 157/71; PULSE 60; TEMP 36.4; O2SAT 96
--- NOTE | 2017-04-05 11:43 | Anesthesiology Progress Note ---
Anesthesia Post Op Note Date & Time Apr 05, 2017 at 11:43 Vital Signs Pain Intensity: 0 Vital Signs Past 12 Hours Date Time Temp Pulse Resp B/P (MAP) Pulse Ox O2 Delivery O2 Flow Rate FiO2 04/05/17 11:25 36.7 61 16 149/79 94 Room Air 04/05/17 11:15 59 16 155/73 95 Room Air 04/05/17 11:05 59 16 158/79 98 Mask 10 04/05/17 10:55 57 16 152/76 100 Mask 10 04/05/17 10:45 36.1 59 16 164/75 100 Mask 10 04/05/17 09:11 36.6 67 18 134/49 (77) 96 Room Air Notes Mental Status: alert / awake / arousable, participated in evaluation Pt Amnestic to Procedure: Yes Nausea / Vomiting: adequately controlled Pain: adequately controlled Airway Patency, RR, SpO2: stable & adequate BP & HR: stable & adequate Hydration State: stable & adequate Anesthetic Complications: no major complications apparent
[2017-04-05 12:13] VITALS: BP 169/73; PULSE 60; O2SAT 95
[2017-04-05 12:45] VITALS: BP 163/70; PULSE 64; TEMP 36.3; O2SAT 99
== END 2017-04-05 12:50 | disposition home or self-care (01) ==
LOC: C.ACU 08:45
PROVIDERS: ATTEND Internal Medicine Gastroenterology
DX: K83.8 Other specified diseases of biliary tract (principal); K83.0 Cholangitis; R53.1 Weakness; E11.9 Type 2 diabetes mellitus without complications; E78.00 Pure hypercholesterolemia, unspecified; Z90.49 Acquired absence of other specified parts of digestive tract; K21.9 Gastro-esophageal reflux disease without esophagitis; I10 Essential (primary) hypertension; Z98.1 Arthrodesis status

== ENCOUNTER 2018-02-26 16:24 | Emergency (ER) | payer OTHER ==
[~2018-02-26 16:24] MED LIST changes: -CIPROFLOXACIN 400MG / 200ML D5W IV SCH; -LACTATED RINGER'S 1000ML 1,000 ML IV SCH; +POTA-639 PO; -POTA20TA16 PO
[2018-02-26 16:29] VITALS: TEMP 36.3; Ht 157.5 cm
[2018-02-26 16:57] LABS: BASO % 0.7 %; BASO ABS # 0.07 K/uL (0-0.2); EOS % 5.1 %; EOS ABS # 0.54 K/uL (0-0.5); HEMATOCRIT 36.5 % (37-47); HEMOGLOBIN 12.6 g/dL (12.0-16.0); IG# 0.03 K/uL (0.00-0.02); LYMPH % 22.4 %; LYMPH ABS # 2.39 K/uL (1.2-3.4); MEAN CELL VOLUME 92.6 fL (80-100); MEAN CORPUSCULAR HGB CONC 34.5 g/dl (32-36); MEAN PLATELET VOLUME 9.7 fL (7.4-10.4); MONO % 5.2 %; MONO ABS # 0.55 K/uL (0.11-0.59); NEUT % 66.3 %; NEUT ABS # 7.09 K/uL (1.4-6.5); PLATELET COUNT 337 K/uL (130-400); RED CELL DISTRIBUTION WIDTH CV 15.1 % (11.5-14.5); RED CELL DISTRIBUTION WIDTH SD 51.5 fL (36.4-46.3); WHITE BLOOD COUNT 10.67 K/uL (4.8-10.8)
[2018-02-26] MEDS ORDERED: OPTIRAY 320 IV PRN (17:00)
[2018-02-26 17:29] LABS: INR 0.9 (0.9-1.1)
[2018-02-26 17:37] LABS: ALBUMIN 3.4 gm/dl (3.4-5.0); ALKALINE PHOSPHATASE 106 U/L (45-117); ALT/SGPT 22 U/L (12-78); AST/SGOT 22 U/L (15-37); BLOOD UREA NITROGEN 14 mg/dl (7-18); CALCIUM 9.6 mg/dl (8.5-10.1); CARBON DIOXIDE 26 mmol/L (21-32); CREATININE 1.32 mg/dl (0.60-1.20); GLUCOSE 221 mg/dl (70-99); LIPASE 305 U/L (73-393); POTASSIUM 2.9 mmol/L (3.5-5.1); SODIUM 140 mmol/L (136-145); TOTAL PROTEIN 7.1 gm/dl (6.4-8.2)
[2018-02-26] MEDS ORDERED: POTASSIUM CHLORIDE 10 MEQ TABCR PO STA (17:38)
--- NOTE | 2018-02-26 18:37 | DIAGNOSTIC IMAGING REPORT ---
ABDOMEN AND PELVIS CT WITH IV CONTRAST CT DOSE: 319.41 mGy.cm HISTORY: Acute generalized abdominal pain with history of uterine cancer . History of prior common bile duct stent placement and removal abd pain TECHNIQUE: Multiaxial CT images of the abdomen and pelvis were performed following the use of intravenous contrast. A dose lowering technique was utilized adhering to the principles of ALARA. COMPARISON STUDY: CT abdomen and pelvis 01/31/2017. FINDINGS: Mild subsegmental bibasilar atelectasis/scarring. Minimal groundglass opacities of the medial basal segment right lower lobe and medial segment right middle lobe are suspicious for pneumonitis. There is no pneumatosis or pneumoperitoneum. Imaged inferior cardiac chambers are unremarkable with coronary arterial calcifications. Prior cholecystectomy. 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 Mild prominence of the extrahepatic biliary ducts appears unchanged. Common bile duct measures 8 mm transversely. Spleen and right adrenal gland are unremarkable. Indeterminate 1.6 x 1.5 cm lesion of the left adrenal gland is unchanged. Mild to moderate generalized pancreatic atrophy. 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 There is of cortical scarring and parenchymal thinning are noted about the right kidney. There are multiple bilateral renal cysts as well as bilateral nonobstructing nephrolithiasis measuring up to 6 mm on the left and 4 mm on the right. Mild nonspecific bilateral perinephric stranding. No ureteral calculi. There is mild circumferential wall thickening about the bladder. Prior hysterectomy. No adnexal mass lesions. Extensive mixed plaquing of the aorta without aneurysm. Retroaortic left renal vein. No bulky adenopathy. Mildly prominent 8 mm periaortic lymph node is seen on image 168 of series 3 which appears stable. There is no bowel obstruction. Moderate rectal wall thickening with mild perirectal inflammatory stranding is noted. Colonic diverticulosis without diverticulitis. Soft tissues are unremarkable. The bones appear moderately demineralized. Multilevel degenerative changes about the spine. IMPRESSION: 1. Moderate circumferential wall thickening about the rectum with mild perirectal inflammatory stranding suggests acute proctitis. Correlate with clinical exam. 2. Colonic diverticulosis without diverticulitis. 3. 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 4. 8 mm cystic-appearing lesion of the pancreatic head is unchanged, suggesting a sidebranch IPMN. 5. Bilateral nephrolithiasis without hydronephrosis. Electronically signed by: Herve Hastings M.D. 02/26/2018 6:36 PM Dictated Date/Time: 02/26/2018 6:18 PM
[2018-02-26] MEDS ORDERED: PRAMCRE2 TOP (18:53)
--- NOTE | 2018-02-26 19:14 | EMERGENCY ROOM VISIT NOTE ---
History Report prepared by Teddy: Jones Lopez Under the Supervision of: Dr. Collins Irizarry D.O. First contact with patient: 16:34 Chief Complaint: RECTAL PAIN Stated Complaint: PROLASPED RECTUM History of Present Illness The patient is an 87 year old female with a history of dementia and diverticulitis who presents to the Emergency Room with complaints of persistent rectal bleeding that was detected earlier today. Per the patient's son, the patient was straining a lot since yesterday when trying to have a bowel movement , and the patient's son noted that there was "more than a moderate amount of blood" in the toilet as well as with wiping. He notes that the patient looked to have a prolapsed rectum, and "stuff that shouldn't be there, was out". The patient's son adds that the patient has been generally weak. The patient denies any abdominal pain, nausea, vomiting, diarrhea, or pain or burning with urination. The patient states that she has never had a prolapsed rectum before. She has a history of a cholecystectomy. She is not on any blood thinners. Source of History: patient, family, caregiver Onset: Earlier today Position: other (rectum) Symptom Intensity: lot of blood in toilet Quality: other (bleeding) Timing: other (persistent) Associated Symptoms: + weakness, No nausea, No vomiting, No abdominal pain, No diarrhea, No urinary symptoms Review of Systems See HPI for pertinent positives & negatives. A total of 10 systems reviewed and were otherwise negative. Past Medical & Surgical Medical Problems: (1) Acoustic neuroma (2) BENIGN HYPERTENSION (3) Cholangitis (4) DIAB ABIMBOLA WO COMP TYPE II OR NOS/NOT UNCONTROLLED (5) Diverticulitis (6) ESOPHAGEAL REFLUX (7) HYPERLIPIDEMIA NEC/NOS (8) HYPOTHYROIDISM NOS (9) MALIG KIAN BLADDER NOS (10) PURE HYPERCHOLESTEROLEM Family History Patient reports no known family medical history. Social History Smoking Status: Never Smoker Alcohol Use: none Drug Use: none Marital Status: Housing Status: lives with family Occupation Status: retired Current/Historical Medications Scheduled Allopurinol (Allopurinol), 300 MG PO QPM Calcium/Vitamin D (Caltrate 600 Plus *), 1 TAB PO BID Ferrous Sulfate (Ferrous Sulfate), 325 MG PO QAM Folic Acid (Folic Acid), 1 MG PO QAM Levothyroxine Sodium (Synthroid), 75 MCG PO QAM Metformin Ext Rel (Glucophage Ext Rel), 500 MG PO BID Metoprolol Succinate (Metoprolol Succinate ER), 25 MG PO DAILY Multivitamins/Minerals (Mvi With Minerals), 1 TAB PO QAM Omeprazole (Prilosec), 40 MG PO BID Potassium Ext Rel (Klor-Con), 20 MEQ PO DAILY Ydbhiqkfc-Vvoasvtfiveuu-Pxfggy (Preparation H), 1 TUBE TOP TID [Boost Nutritional Drink], 1 BOX PO BID17 Scheduled PRN Acetaminophen (Tylenol), 650 MG PO BID PRN for Pain Allergies Coded Allergies: Mirtazapine (Verified Allergy, Mild, Increased Anxiety, 02/26/18) Oxycodone (Verified Adverse Reaction, Mild, GI SYMPTOMS, 02/26/18) Morphine (Verified Adverse Reaction, Unknown, NAUSEA, 02/26/18) Physical Exam Vital Signs Date Time Temp Pulse Resp B/P (MAP) Pulse Ox O2 Delivery O2 Flow Rate FiO2 02/26/18 18:40 67 18 182/81 96 Room Air 02/26/18 16:29 36.3 78 20 145/70 95 Room Air Physical Exam GENERAL: Sitting up in bed, no acute distress, nontoxic EYE EXAM: normal conjunctiva. OROPHARYNX: no exudate, no erythema, lips, buccal mucosa, and tongue normal and mucous membranes are moist NECK: supple, no nuchal rigidity, no adenopathy, non-tender LUNGS: Clear to auscultation. Normal chest wall mechanics HEART: no murmurs, S1 normal and S2 normal ABDOMEN: abdomen soft, non-tender, normo-active bowel sounds, no masses, no rebound or guarding. BACK: Back is symmetrical on inspection and there is no deformity, no midline tenderness, no CVA tenderness. RECTUM: Multiple hemorrhoids present, largest at 12 o'clock, tender, with a small amount of blood. No prolapse. SKIN: no rashes and no bruising UPPER EXTREMITIES: upper extremities are grossly normal. LOWER EXTREMITIES: No pitting edema. NEURO EXAM: Awake, alert, follows commands. Slightly confused but at baseline. Cranial nerves II-XII grossly intact, normal speech, no gross weakness of arms , no gross weakness of legs. Medical Decision & Procedures ER Provider Diagnostic Interpretation: CT:Per my review, radiologist interpretation. ABDOMEN AND PELVIS CT WITH IV CONTRAST CT DOSE: 319.41 mGy.cm HISTORY: Acute generalized abdominal pain with history of uterine cancer . History of prior common bile duct stent placement and removal abd pain TECHNIQUE: Multiaxial CT images of the abdomen and pelvis were performed following the use of intravenous contrast. A dose lowering technique was utilized adhering to the principles of ALARA. COMPARISON STUDY: CT abdomen and pelvis 01/31/2017. FINDINGS: Mild subsegmental bibasilar atelectasis/scarring. Minimal groundglass opacities of the medial basal segment right lower lobe and medial segment right middle lobe are suspicious for pneumonitis. There is no pneumatosis or pneumoperitoneum. Imaged inferior cardiac chambers are unremarkable with coronary arterial calcifications. Prior cholecystectomy. 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 Mild prominence of the extrahepatic biliary ducts appears unchanged. Common bile duct measures 8 mm transversely. Spleen and right adrenal gland are unremarkable. Indeterminate 1.6 x 1.5 cm lesion of the left adrenal gland is unchanged. Mild to moderate generalized pancreatic atrophy. 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 There is of cortical scarring and parenchymal thinning are noted about the right kidney. There are multiple bilateral renal cysts as well as bilateral nonobstructing nephrolithiasis measuring up to 6 mm on the left and 4 mm on the right. Mild nonspecific bilateral perinephric stranding. No ureteral calculi. There is mild circumferential wall thickening about the bladder. Prior hysterectomy. No adnexal mass lesions. Extensive mixed plaquing of the aorta without aneurysm. Retroaortic left renal vein. No bulky adenopathy. Mildly prominent 8 mm periaortic lymph node is seen on image 168 of series 3 which appears stable. There is no bowel obstruction. Moderate rectal wall thickening with mild perirectal inflammatory stranding is noted. Colonic diverticulosis without diverticulitis. Soft tissues are unremarkable. The bones appear moderately demineralized. Multilevel degenerative changes about the spine. IMPRESSION: 1. Moderate circumferential wall thickening about the rectum with mild perirectal inflammatory stranding suggests acute proctitis. Correlate with clinical exam. 2. Colonic diverticulosis without diverticulitis. 3. 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 4. 8 mm cystic-appearing lesion of the pancreatic head is unchanged, suggesting a sidebranch IPMN. 5. Bilateral nephrolithiasis without hydronephrosis. Electronically signed by: Herve Hastings M.D. 02/26/2018 6:36 PM Dictated Date/Time: 02/26/2018 6:18 PM Laboratory Results 02/26/18 16:46 Red Blood Count 3.94, Mean Corpuscular Volume 92.6, Mean Corpuscular Hemoglobin 32.0, Mean Corpuscular Hemoglobin Concent 34.5, Mean Platelet Volume 9.7, Neutrophils (%) (Auto) 66.3, Lymphocytes (%) (Auto) 22.4, Monocytes (%) (Auto) 5.2, Eosinophils (%) (Auto) 5.1, Basophils (%) (Auto) 0.7, Neutrophils # (Auto) 7.09, Lymphocytes # (Auto) 2.39, Monocytes # (Auto) 0.55, Eosinophils # (Auto) 0.54, Basophils # (Auto) 0.07 02/26/18 16:46 Test 02/26/18 16:46 White Blood Count 10.67 K/uL (4.8-10.8) Red Blood Count 3.94 M/uL (4.2-5.4) Hemoglobin 12.6 g/dL (12.0-16.0) Hematocrit 36.5 % (37-47) Mean Corpuscular Volume 92.6 fL (80-100) Mean Corpuscular Hemoglobin 32.0 pg (25-34) Mean Corpuscular Hemoglobin Concent 34.5 g/dl (32-36) Platelet Count 337 K/uL (130-400) Mean Platelet Volume 9.7 fL (7.4-10.4) Neutrophils (%) (Auto) 66.3 % Lymphocytes (%) (Auto) 22.4 % Monocytes (%) (Auto) 5.2 % Eosinophils (%) (Auto) 5.1 % Basophils (%) (Auto) 0.7 % Neutrophils # (Auto) 7.09 K/uL (1.4-6.5) Lymphocytes # (Auto) 2.39 K/uL (1.2-3.4) Monocytes # (Auto) 0.55 K/uL (0.11-0.59) Eosinophils # (Auto) 0.54 K/uL (0-0.5) Basophils # (Auto) 0.07 K/uL (0-0.2) RDW Standard Deviation 51.5 fL (36.4-46.3) RDW Coefficient of Variation 15.1 % (11.5-14.5) Immature Granulocyte % (Auto) 0.3 % Immature Granulocyte # (Auto) 0.03 K/uL (0.00-0.02) Prothrombin Time 9.8 SECONDS (9.0-12.0) Prothromb Time International Ratio 0.9 (0.9-1.1) Anion Gap 9.0 mmol/L (3-11) Estimated GFR () 42.5 Estimated GFR (Non- 36.7 BUN/Creatinine Ratio 10.5 (10-20) Calcium Level 9.6 mg/dl (8.5-10.1) Total Bilirubin 0.3 mg/dl (0.2-1) Direct Bilirubin < 0.1 mg/dl (0-0.2) Aspartate Amino Transf (AST/SGOT) 22 U/L (15-37) Alanine Aminotransferase (ALT/SGPT) 22 U/L (12-78) Alkaline Phosphatase 106 U/L (45-117) Total Protein 7.1 gm/dl (6.4-8.2) Albumin 3.4 gm/dl (3.4-5.0) Lipase 305 U/L (73-393) Laboratory results per my review. ED Course ED COURSE: Vital signs were reviewed and showed normal vitals. The patients medical record was reviewed The above diagnostic studies were performed and reviewed. ED treatments and interventions as stated above. 1634: The patient was evaluated in room A12B. A complete history and physical examination was performed. 1738: Klor-Con M10 40 meq PO. 1845: I discussed the patient with Dr. Nydia Porter GI. 1855: Upon reevaluation, the patient is resting.I discussed my findings with the patient and she understands and agrees with the treatment plan. Based on the patients age, coexisting illnesses, exam and lab findings the decision to treat as an outpatient was made. The patient remained stable while under my care. The patient appeared well at the time of discharge. Medical Decision Differential diagnosis includes etiologies such as diverticulosis, AVM, coagulopathy, colitis, inflammatory bowel disease, malignancy, Leonor-Walsh tear, esophagitis, peptic ulcer disease, variceal bleed, gastritis, epistaxis, fissure, hemorrhoids, as well as others were entertained. Patient is an 87-year-old female who presents the ER brought in by son who noticed a mass at her rectum after she was straining to have a bowel movement. He did notice small amount of blood. Upon presentation evaluation at bedside the son notes that this has resolved. CBC along with BMP shows a mild hypokalemia. LFTs, bilirubin lipase was normal. Potassium was repleted. INR was unremarkable. No urinary symptoms. CT of abdomen pelvis shows show some inflammation of the rectum. I did discuss this with GI as I favor she likely had a rectal prolapse which reduced on its own. On exam she does have multiple external hemorrhoids 1 of which has a small amount of blood present. I do favor based on history that she likely had a rectal prolapse which has resolved. Vitals are stable. No complaints of any pain. GI recommended Preparation H and following up as an outpatient. I did feel this is reasonable. Discussed with Pt concerning signs and symptoms to watch out for. Pt was instructed to follow up with their PCP and discussed with the patient their option to return to the ED at anytime for persistent or worsening symptoms. The appropriate anticipatory guidance and out-patient management, including indications for return to the emergency department, were explained at length to the patient and understood. Medication Reconcilliation Current Medication List: was personally reviewed by me Blood Pressure Screening Patient's blood pressure: Normal blood pressure Consults Time Called: 1839 Consulting Physician: Dr. Nydia AGUILA Returned Call: 1844 I discussed the patient with Dr. Nydia AGUILA. Impression Primary Impression: Acute hemorrhoid Additional Impression: Rectal prolapse Scribe Attestation The scribe's documentation has been prepared under my direction and personally reviewed by me in its entirety. I confirm that the note above accurately reflects all work, treatment, procedures, and medical decision making performed by me. Departure Information Dispostion Home / Self-Care Prescriptions Nlhrzvpdi-Pgmpajoqpmmrt-Ptcsyv (PREPARATION H) 1 Cre Cre 1 TUBE TOP TID, #1 Prov: Collins Irizarry, DO 02/26/18 Referrals Jeff Good, D.OLorena (PCP) Shun Lunsford M.D. Patient Instructions ED Prolapse Rectal, My [facility] Additional Instructions Please follow up with your primary care doctor with in the next 24 hours. Any worsening of your symptoms, please return to the ED immediately. This includes any fevers greater than 100.4, recurrence of the rectal prolapse, bright red blood or dark tarry stools, worsening pain, chest pain, shortness breath, persistent nausea, vomiting, unable to eat or drink, or any other concerning signs or symptoms from your standpoint. Please use Preparation H as prescribed. Problem Qualifiers
[2018-02-26] MEDS ORDERED: OMEG10007 PO (19:17)
[2018-02-26] MEDS ORDERED: LSN5 PO (19:17)
[2018-02-26] MEDS ORDERED: ALLO300T2 PO (19:17)
[2018-02-26] MEDS ORDERED: SENNTAB23 PO (19:17)
[2018-02-26] MEDS ORDERED: TPRSR/50 PO (19:17)
[2018-02-26] MEDS ORDERED: OMEP40CA41 PO (19:17)
[2018-02-26] MEDS ORDERED: CALC-416 PO (19:17)
[2018-02-26] MEDS ORDERED: FOLI1TAB8 PO (19:17)
[2018-02-26 19:38] VITALS: BP 182/94; PULSE 71; O2SAT 98
== END 2018-02-26 19:38 | disposition home or self-care (01) ==
LOC: C.EDB 16:25 → C.EDA 19:38
DX: K62.3 Rectal prolapse (principal); K64.9 Unspecified hemorrhoids; E87.6 Hypokalemia; Z90.49 Acquired absence of other specified parts of digestive tract; I10 Essential (primary) hypertension; E11.9 Type 2 diabetes mellitus without complications; K21.9 Gastro-esophageal reflux disease without esophagitis; E78.5 Hyperlipidemia, unspecified; E03.9 Hypothyroidism, unspecified; E78.00 Pure hypercholesterolemia, unspecified; Z85.51 Personal history of malignant neoplasm of bladder; Z79.899 Other long term (current) drug therapy; Z79.84 Long term (current) use of oral hypoglycemic drugs; Z88.5 Allergy status to narcotic agent; Z88.8 Allergy status to other drugs, medicaments and biological substances

== ENCOUNTER 2019-09-11 16:07 | Inpatient (IN) ==
[2019-09-11] MEDS ORDERED: ONDANSETRON INJ 2 MG/ML 2 ML VIAL IV STA (16:22)
[2019-09-11] MEDS ORDERED: SODIUM CHLORIDE 0.9% 500 ML IV SCH (16:30)
[2019-09-11 16:50] LABS: Hemoglobin 13.5 g/dL (12.0-16.0); Mean Corpuscular Hemoglobin 33.2 pg (25-34); Mean Corpuscular Hgb Conc 33.8 g/dL (32-36); Mean Corpuscular Volume 98.3 fL (80-100); Mean Platelet Volume 10.3 fL (7.4-10.4); Platelet Count 332 K/uL (130-400); RDW Coefficient of Variation 15.4 % (11.5-14.5); RDW Standard Deviation 55.5 fL (36.4-46.3); Red Blood Count 4.07 M/uL (4.2-5.4); White Blood Count 21.32 K/uL (4.8-10.8)
--- NOTE | 2019-09-11 16:50 | Emergency Department Note ---
Entered by Emilie Dominguez acting as a scribe for History of Present Illness General Chief complaint: Illness Stated complaint: VOMITING, FEVER, BM IN BED Time Seen by Provider: 09/11/19 16:14 Source: patient and family (son) Mode of arrival: wheelchair Limitations: no limitations History of Present Illness Provider complaint: Weakness Onset (ago): hour(s) (this morning) Pain Consistency: + other (worsening) Quality: + other (weakness) Associated symptoms: + fever/chills, + nausea/vomiting, + shortness of breath (now resolved) and + other (Additional symptoms: diarrhea, gas, bowel incontinence, worsening hearing in right ear, shoulder discomfort. Denies: hematochezia, melena, abdominal pain) Treatments prior to arrival: other (Tylenol) The patient is an 89 year old female with a history of acoustic neuroma, dementia, diverticulitis, and cholangitis who presents to the Emergency Room with complaints of worsening weakness starting this morning. Per son, the patient experienced an episode of diarrhea and vomiting around 0730 today. He notes that the patient's diarrhea was dark brown, and he denies any hematochezia or melena. He explains that the patient takes Mirlax daily because she has a history of constipation. He reports that the patient initially thought that her symptoms were secondary to food poisoning, but he states that no one else who ate Thanksgiving dinner last night is sick either with food poisoning or flu- like symptoms. He mentions that the patient also complained of gas and was passing gas. He adds that she drank coke and water throughout the morning. He continues to note that the patient experienced another episode of diarrhea and vomiting around noon and has been exhibiting increasing weakness. He indicates that she was unable to control her bowel movements and move around on her own. He explains that she is normally able to get up and ambulate short distances with a walker. Per son, the patient had a blood pressure of about 120/80 and a temperature of 102.1 this afternoon. He reports that he gave the patient 2 doses of extra strength Tylenol about an hour prior to arrival, which seemed to improve her fever. At this time, the patient complains of worsening hearing in the right ear and shoulder discomfort. She mentions that she felt short of breath earlier but that this has resolved. She denies any abdominal pain. Home Medications Home Medications Medication Instructions Recorded Confirmed Type acetaminophen 650 mg PO BID PRN 03/14/19 09/11/19 History allopurinol 300 mg PO DAILY 03/14/19 09/11/19 History calcium carbonate-vitamin D3 1 cap PO BID 03/14/19 09/11/19 History [Calcium 600 + D(3)] folic acid 1 mg PO DAILY 03/14/19 09/11/19 History levothyroxine 75 mcg PO DAILY 03/14/19 09/11/19 History lisinopril 5 mg PO DAILY 03/14/19 09/11/19 History metoprolol succinate 50 mg PO DAILY 03/14/19 09/11/19 History multivitamin 1 tab PO DAILY 03/14/19 09/11/19 History omega 8-ano-fwd-fish oil [Fish Oil] 1 cap PO DAILY 03/14/19 09/11/19 History omeprazole 40 mg PO BID 03/14/19 09/11/19 History Allergies Allergy/AdvReac Type Severity Reaction Status Date / Time mirtazapine AdvReac Mild Increased Verified 09/11/19 21:10 Anxiety oxycodone AdvReac Mild GI SYMPTOMS Verified 09/11/19 16:52 morphine AdvReac Unknown NAUSEA Verified 09/11/19 16:52 Past Med/Surg History Medical History Acoustic neuroma (Chronic 10/22/12) Cholangitis Dementia Diverticulitis Social History Preferred Language: Haitian Communication Ability: Effective Hearing Ability: Hard of Hearing Hot Shot Required: No Beliefs That Will Affect Care: None marital status: Current Living Situation: Family current occupational status: retired Other Information That Helps Us Care for You: No Feels Safe at Home: Yes Safety Concerns: Feels Safe At This Time Smoking Status: Former smoker Do You Dip or Chew Tobacco: No ; Second Hand Exposure: No ; Tobacco Cessation Education Requested by Patient: No Hx Alcohol Use: No Hx Substance Use: No Review of Systems See HPI for pertinent positives & negatives. and A total of 10 systems reviewed and were otherwise negative Physical Exam Vital Signs Vital Signs - 24 hr 09/11/19 16:09 09/11/19 16:31 09/11/19 17:49 Temperature 36.7 C Temperature Source Oral Pulse Rate 115 H 111 H Pulse Rate [Left] 87 Respiratory Rate 20 22 Respiratory Effort / Characteristics Non-Labored Spontaneous Spontaneous Respiratory Depth Normal Respiratory Pattern Regular Blood Pressure 122/61 Blood Pressure [Left Arm] 104/59 L Blood Pressure Mean 81 Blood Pressure Mean [Left Arm] 74 Blood Pressure Position Sitting Blood Pressure Position [Left Arm] Lying Pulse Oximetry 91 93 94 Oxygen Delivery Method Room Air Room Air Room Air Sepsis Recent Fever Within 48 Hours No Sepsis New/Unexplained Change in Mental Status No Sepsis Action Taken by Nursing No Action Required 09/11/19 18:50 Temperature Temperature Source Pulse Rate Pulse Rate [Left] 87 Respiratory Rate 20 Respiratory Effort / Characteristics Non-Labored Spontaneous Respiratory Depth Respiratory Pattern Blood Pressure Blood Pressure [Left Arm] 99/49 L Blood Pressure Mean Blood Pressure Mean [Left Arm] 65 Blood Pressure Position Blood Pressure Position [Left Arm] Lying Pulse Oximetry 91 Oxygen Delivery Method Room Air Sepsis Recent Fever Within 48 Hours Sepsis New/Unexplained Change in Mental Status Sepsis Action Taken by Nursing GENERAL: Patient is in no acute distress. HEENT: No acute trauma, normocephalic atraumatic, mucous membranes moist, no nasal congestion, no scleral icterus. NECK: No stridor, no adenopathy, no meningismus, trachea is midline. LUNGS: Clear to auscultation bilaterally, no wheeze, no rhonchi, breath sounds equal. HEART: Tachycardic with a regular rhythm, no murmur. ABDOMEN: Soft, nontender, bowel sounds positive, no hernias, no peritonitis. EXTREMITIES: No cyanosis or edema, full range of motion of all the joints wit hout pain or difficulty, no signs for acute trauma. NEUROLOGIC:Awake and alert, no acute motor or sensory deficits, no focal weakness. SKIN: No rash, no jaundice, no diaphoresis. Course Course 1614: The patient was evaluated in room C3, and a complete history and physical examination were performed. 1815: I checked on the patient and updated her and her son on her results. The patient is agreeable to admission. 1832: I reviewed the patient's case with German Montesinos PA-C. German Shaver will evaluate the patient for further management. Consultations Consultation #1: I reviewed the patient's case with German Montesinos PA-C. German Shaver will evaluate the patient for further management. Time: 18:33 Administered Medications Sodium Chloride (Nss 1000ml) 1,000 mls @ 125 mls/hr IV .Q8H SARAN Stop: 10/11/19 21:05 Last Admin: 09/11/19 22:06 Dose: 125 mls/hr Documented by: [id number] Pantoprazole Sodium (Protonix) 40 mg PO BID SARAN Stop: 10/11/19 21:29 Last Admin: 09/11/19 22:22 Dose: 40 mg Documented by: [id number] Discontinued Medications Sodium Chloride (Nss) 500 mls @ 999 mls/hr IV .Q31M SARAN Stop: 09/11/19 17:00 Last Infusion: 09/11/19 18:00 Dose: 0 mls/hr Documented by: [id number] Admin: 09/11/19 17:28 Dose: 999 mls/hr Documented by: [id number] Sodium Chloride (Nss) 500 mls @ 999 mls/hr IV .Q31M ONE Stop: 09/11/19 17:50 Last Admin: 09/11/19 17:28 Dose: Not Given Documented by: [id number] Cefepime HCl (Maxipime) 2,000 mg in 20 mls @ 5 mls/min IV NOW STA; Protocol Stop: 09/11/19 17:34 Last Admin: 09/11/19 17:47 Dose: 5 mls/min Documented by: [id number] Piperacillin Sod/Tazobactam (Sod 3.375 gm/ Dextrose) 115 mls @ 230 mls/hr IV NOW ONE; Protocol Stop: 09/11/19 22:14 Last Admin: 09/11/19 22:05 Dose: 230 mls/hr Documented by: [id number] Ondansetron HCl (Zofran) 4 mg IV NOW STA Stop: 09/11/19 16:23 Last Admin: 09/11/19 17:28 Dose: 4 mg Documented by: [id number] Critical Care Time Critical Care Time: Yes Total Critical Care Time: 34 I have personally spent 34 minutes of critical care time in the direct management of this patient. This includes bedside care, interpretation of diagnostic studies, and testing, discussion with consultants, patient, and family members, and other required patient management activities. This 34 minutes is in excess of all separately billable procedures. Medical Decision Making Differential Diagnosis Differential diagnosis includes: dehydration, electrolyte imbalance, renal or liver failure, UTI, sepsis, pneumonia, colitis, diverticulitis, foodborne or viral illness. Medical Records Attestation: I reviewed the patient's medical records. Home Medications Current Medication List: was personally reviewed by me Laboratory Data Attestation: I reviewed the patient's lab results. Result diagrams: 09/11/19 16:28 09/11/19 16: Lab Results 09/11/19 09/11/19 09/11/19 Range/Units 16:28 16:28 16:28 WBC 21.32 H (4.8-10.8) K/uL RBC 4.07 L (4.2-5.4) M/uL Hgb 13.5 (12.0-16.0) g/dL Hct 40.0 (37-47) % MCV 98.3 (80-100) fL MCH 33.2 (25-34) pg MCHC 33.8 (32-36) g/dL RDW Std Deviation 55.5 H (36.4-46.3) fL RDW Coeff of Mis 15.4 H (11.5-14.5) % Plt Count 332 (130-400) K/uL MPV 10.3 (7.4-10.4) fL Immature Gran % (Auto) 0.2 % Neut % (Auto) 95.3 % Lymph % (Auto) 2.1 % [place] % (Auto) 2.3 % Eos % (Auto) 0.0 % Baso % (Auto) 0.1 % Immature Gran # (Auto) 0.05 H (0.00-0.02) K/uL Neut # (Auto) 20.30 H (1.4-6.5) K/uL Lymph # (Auto) 0.45 L (1.2-3.4) K/uL [place] # (Auto) 0.49 (0.11-0.59) K/uL Eos # (Auto) 0.01 (0-0.5) K/uL Baso # (Auto) 0.02 (0-0.2) K/uL Toxic Vacuolation 1+ Sodium 138 (136-145) mmol/L Potassium 3.9 (3.5-5.1) mmol/L Chloride 107 (98-107) mmol/L Carbon Dioxide 20 L (21-32) mmol/L Anion Gap 11.0 (3-11) BUN 28 H (7-18) mg/dl Creatinine 1.72 H (0.6-1.2) mg/dl Est Cr Clr Drug Dosing 19.9 ml/min Est GFR ( Amer) 30.5 Est GFR (Non-Af Amer) 26.3 BUN/Creatinine Ratio 16.2 (10-20) Glucose 194 H (70-99) mg/dl Lactate 3.8 H* (0.4-2.0) mmol/L Calcium 10.2 H (8.5-10.1) mg/dl Magnesium 1.8 (1.8-2.4) mg/dl Total Bilirubin 0.6 (0.2-1) mg/dl AST 246 H (15-37) U/L ALT 165 H (12-78) U/L Alkaline Phosphatase 158 H (45-117) U/L Troponin I < 0.015 (0-0.045) ng/ml Total Protein 8.2 (6.4-8.2) gm/dl Albumin 3.9 (3.4-5.0) gm/dl Globulin 4.3 H (2.5-4.0) gm/dl Albumin/Globulin Ratio 0.9 (0.9-2) Urine Color Urine Appearance (Clear) Urine pH (4.5-7.5) Ur Specific [place] (1.000-1.030) Urine Protein (Negative) Urine Glucose (UA) (Negative) Urine Ketones (Negative) Urine Blood (Negative) Urine Nitrite (Negative) Urine Bilirubin (Negative) Urine Urobilinogen (Negative) Ur Leukocyte Esterase (Negative) Urine WBC (Auto) (0-5) /hpf Urine RBC (Auto) (0-4) /hpf U Hyaline Cast (Auto) (0-5) /lpf U Epithel Cells (Auto) (0-5) /lpf Urine Bacteria (Auto) (Negative) 09/11/19 Range/Units 17:20 WBC (4.8-10.8) K/uL RBC (4.2-5.4) M/uL Hgb (12.0-16.0) g/dL Hct (37-47) % MCV (80-100) fL MCH (25-34) pg MCHC (32-36) g/dL RDW Std Deviation (36.4-46.3) fL RDW Coeff of Mis (11.5-14.5) % Plt Count (130-400) K/uL MPV (7.4-10.4) fL Immature Gran % (Auto) % Neut % (Auto) % Lymph % (Auto) % [place] % (Auto) % Eos % (Auto) % Baso % (Auto) % Immature Gran # (Auto) (0.00-0.02) K/uL Neut # (Auto) (1.4-6.5) K/uL Lymph # (Auto) (1.2-3.4) K/uL [place] # (Auto) (0.11-0.59) K/uL Eos # (Auto) (0-0.5) K/uL Baso # (Auto) (0-0.2) K/uL Toxic Vacuolation Sodium (136-145) mmol/L Potassium (3.5-5.1) mmol/L Chloride (98-107) mmol/L Carbon Dioxide (21-32) mmol/L Anion Gap (3-11) BUN (7-18) mg/dl Creatinine (0.6-1.2) mg/dl Est Cr Clr Drug Dosing ml/min Est GFR ( Amer) Est GFR (Non-Af Amer) BUN/Creatinine Ratio (10-20) Glucose (70-99) mg/dl Lactate (0.4-2.0) mmol/L Calcium (8.5-10.1) mg/dl Magnesium (1.8-2.4) mg/dl Total Bilirubin (0.2-1) mg/dl AST (15-37) U/L ALT (12-78) U/L Alkaline Phosphatase (45-117) U/L Troponin I (0-0.045) ng/ml Total Protein (6.4-8.2) gm/dl Albumin (3.4-5.0) gm/dl Globulin (2.5-4.0) gm/dl Albumin/Globulin Ratio (0.9-2) Urine Color Yellow Urine Appearance Clear (Clear) Urine pH 6.5 (4.5-7.5) Ur Specific [place] 1.017 (1.000-1.030) Urine Protein 2+ H (Negative) Urine Glucose (UA) Negative (Negative) Urine Ketones Negative (Negative) Urine Blood Negative (Negative) Urine Nitrite Negative (Negative) Urine Bilirubin Negative (Negative) Urine Urobilinogen Negative (Negative) Ur Leukocyte Esterase Negative (Negative) Urine WBC (Auto) 1-5 (0-5) /hpf Urine RBC (Auto) 0-4 (0-4) /hpf U Hyaline Cast (Auto) 1-5 (0-5) /lpf U Epithel Cells (Auto) 20-30 H (0-5) /lpf Urine Bacteria (Auto) Negative (Negative) Imaging Data Radiologist's Impression: Radiology results as stated below per my review and the radiologist's interpretation: XR chest 1V portable CLINICAL HISTORY: weakness COMPARISON STUDY: 03/14/2019 FINDINGS: The cardiac and mediastinal contours are normal. There is no evidence of focal pulmonary consolidation. There is no evidence of failure. No pleural effusions are visualized.[There is minor basilar interstitial thickening, similar to the preceding study and likely chronic IMPRESSION: No active disease in the chest. Electronically signed by: Ankur Chu M.D. 09/11/2019 4:[address] SCAN OF THE ABDOMEN AND PELVIS WITHOUT CONTRAST CLINICAL HISTORY: Abdominal pain and fever COMPARISON STUDY: 02/26/2018 TECHNIQUE: CT scan of the abdomen and pelvis was performed from the lung bases to the proximal femurs. Images are reviewed in the axial, sagittal, and coronal planes. IV contrast was not administered for this examination. A dose lowering technique was utilized adhering to the principles of ALARA. CT DOSE: 278.78 mGy.cm FINDINGS: Lower chest: There is basilar interstitial thickening. There are nonspecific groundglass opacities within the right middle lobe and right lower lobe likely atelectatic. Liver: The unenhanced liver is normal in size, contour, and attenuation. There is no intrahepatic biliary ductal dilatation. Gallbladder: Surgically absent Spleen: Normal in size and attenuation. 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 The largest is located within the lower pole of the left kidney measuring 7 mm. There is a 27 mm right renal cyst. There is a 20 mm left renal cyst. There is no hydronephrosis. No ureteral calculi are visualized. Multiple periureteral calculi likely represent phleboliths as there is no evidence of ureteral or collecting system dilatation. Bowel: There are no transition zones indicate bowel obstruction. There is colonic diverticulosis. There is no evidence of acute diverticulitis. There is scattered small bowel air-fluid levels. This is a nonspecific finding which could be secondary to a enteritis. The appendix is not visualized. There is no evidence of acute appendicitis. Borderline gastric wall thickening remain similar to the prior study and may be secondary to incomplete distention. Peritoneum: There is no intraperitoneal free air or abdominal ascites. Vasculature: The abdominal aorta is normal in course and caliber. Adenopathy: None. Pelvic viscera: The uterus is surgically absent. Skeletal structures: No destructive osseous lesions are seen. IMPRESSION: 1. No evidence of bowel obstruction. No evidence of free air 2. Borderline gastric wall thickening possibly secondary to incomplete distention 3. Scattered small bowel air-fluid levels. This is a nonspecific finding which can be seen in enteritis. 4. Bilateral nephrolithiasis. No hydronephrosis. No ureteral calculi identified. 5. Diverticulosis. No evidence of acute diverticulitis. 6. Stable left adrenal adenoma. 7. Surgically absent gallbladder and uterus. Electronically signed by: Ankur Chu M.D. 09/11/2019 5:57 PM ECG Data Attestation: I personally reviewed and interpreted this ECG as follows: Indication: + weakness Rate (beats per minute): 107 Rhythm: + sinus tachycardia ECG Intervals/blocks: + First degree AV block ECG ST segments: no ST elevation ECG Findings: + Other (old inferior infarct, QTC is 424); no PVCs Blood Pressure Blood Pressure Findings: Low blood pressure Blood Pressure Disposition: further management by hospitalist [facility] Narrative There is a significant leukocytosis at 21,000, this is consistent with infection. No worrisome anemia. Renal panel testing shows some dehydration/renal insufficiency with a creatinine of 1.72. There was elevation to the liver enzymes. Lactic acid level was elevated at 3.8, this is concerning for infection/dehydration. Urinalysis did not show infection. Chest film did not show pneumonia. Abdominal and pelvis CT showed a potential enteritis, no diverticulitis, no abscess. No bowel obstruction. The patient received IV cefepime as empiric antibiotic coverage. She was given IV Zofran for nausea, she received 2/500 cc saline boluses. She is currently resting comfortably. Patient presents with vomiting and diarrhea. She has been quite weak. She has had a fever. Work-up suggests infection with a high white count and high lactic acid. I do think admission/observation is warranted. The patient will have a stool sent for C. difficile and bacterial infection if she has a another diarrheal bowel movement. No bowel movement since being here in the ED. I spoke to the patient and the family. I talked with the on-call hospitalist. Case management has been involved. Impression & Plan Sepsis, Weakness, Leukocytosis, Dehydration, Lactic acidosis, Vomiting and diarrhea Discharge Plan Visit Data *Final* Discharge Date/Time: 09/11/19 20:30 Chief Complaint: Illness Stated Complaint: VOMITING, FEVER, BM IN BED ED Provider: Dashawn Rankin Discharge Problem: Sepsis, Weakness, Leukocytosis, Dehydration, Lactic acidosis, Vomiting and diarrhea Patient Disposition: Admitted As Inpatient Discharge Instructions Interventions: ED Discharge Assessment Last Done: 09/11/19 20:30 Discharge Problem: Sepsis Qualifiers: Sepsis type: sepsis due to unspecified organism Sepsis acute organ dysfunction status: unspecified Qualified Code(s): A41.9 - Sepsis, unspecified organism Leukocytosis Qualifiers: Leukocytosis type: unspecified Qualified Code(s): D72.829 - Elevated white blood cell count, unspecified The scribe's documentation has been prepared under my direction and personally reviewed by me in its entirety. I confirm that the note above accurately reflects all work, treatment, procedures, and medical decision making performed by me.
--- NOTE | 2019-09-11 16:53 | XRay Report ---
XR chest 1V portable CLINICAL HISTORY: weakness COMPARISON STUDY: 03/14/2019 FINDINGS: The cardiac and mediastinal contours are normal. There is no evidence of focal pulmonary co nsolidation. There is no evidence of failure. No pleural effusions are visualized.[There is minor bas ilar interstitial thickening, similar to the preceding study and likely chronic IMPRESSION: No active disease in the chest. Electronically signed by: Ankur Chu M.D. 09/11/2019 4:52 PM
[2019-09-11 17:14] LABS: Basophils # (auto) 0.02 K/uL (0-0.2); Basophils % (auto) 0.1 %; Eosinophils # (auto) 0.01 K/uL (0-0.5); Immature Granulocytes # (auto) 0.05 K/uL (0.00-0.02); Immature Granulocytes % (auto) 0.2 %; Lymphocytes # (auto) 0.45 K/uL (1.2-3.4); Lymphocytes % (auto) 2.1 %; Monocytes # (auto) 0.49 K/uL (0.11-0.59); Monocytes % (auto) 2.3 %; Neutrophils % (auto) 95.3 %; Toxic Vacuolation 1+
[2019-09-11 17:17] LABS: Alanine Aminotransferase 165 U/L (12-78); Albumin Level 3.9 gm/dl (3.4-5.0); Aspartate Aminotransferase 246 U/L (15-37); BUN Creatinine Ratio 16.2 (10-20); Blood Urea Nitrogen 28 mg/dl (7-18); Calcium 10.2 mg/dl (8.5-10.1); Carbon Dioxide 20 mmol/L (21-32); Chloride 107 mmol/L (98-107); Creatinine Clr Calc Pharmacy 19.9 ml/min; Est GFR (African American) 30.5; Est GFR (Non-African American) 26.3; Glucose 194 mg/dl (70-99); Magnesium 1.8 mg/dl (1.8-2.4); Potassium 3.9 mmol/L (3.5-5.1); Sodium 138 mmol/L (136-145)
[2019-09-11] MEDS ORDERED: SODIUM CHLORIDE 0.9% 500 ML IV ONE (17:20)
[2019-09-11 17:22] LABS: Albumin Globulin Ratio 0.9 (0.9-2); Alkaline Phosphatase 158 U/L (45-117); Bilirubin,Total 0.6 mg/dl (0.2-1); Globulin 4.3 gm/dl (2.5-4.0); Total Protein 8.2 gm/dl (6.4-8.2); Troponin I < 0.015 ng/ml (0-0.045)
[2019-09-11] MEDS ORDERED: CEFEPIME 2,000 MG/20 ML VIAL IV STA (17:31)
[2019-09-11 17:33] LABS: Appearance Urine Clear (Clear); Bacteria Urine Automated Negative (Negative); Bilirubin Urine Negative (Negative); Blood Urine Negative (Negative); Color Urine Yellow; Epithelial Cell Urine Auto 20-30 /lpf (0-5); Glucose Urine UA Negative (Negative); Ketones Urine Negative (Negative); Leukocyte Esterase Urine Negative (Negative); Nitrite Urine Negative (Negative); Protein Urine 2+ (Negative); RBC Urine Automated 0-4 /hpf (0-4); Specific Gravity Urine 1.017 (1.000-1.030); Urobilinogen Urine Negative (Negative); pH Urine 6.5 (4.5-7.5)
--- NOTE | 2019-09-11 17:59 | CT Scan Report ---
CT SCAN OF THE ABDOMEN AND PELVIS WITHOUT CONTRAST CLINICAL HISTORY: Abdominal pain and fever COMPARISON STUDY: 02/26/2018 TECHNIQUE: CT scan of the abdomen and pelvis was performed from the lung bases to the proximal femurs . Images are reviewed in the axial, sagittal, and coronal planes. IV contrast was not administered fo r this examination. A dose lowering technique was utilized adhering to the principles of ALARA. CT DOSE: 278.78 mGy.cm FINDINGS: Lower chest: There is basilar interstitial thickening. There are nonspecific groundglass opacities wi thin the right middle lobe and right lower lobe likely atelectatic. Liver: The unenhanced liver is normal in size, contour, and attenuation. There is no intrahepatic violeta iary ductal dilatation. Gallbladder: Surgically absent Spleen: Normal in size and attenuation. Pancreas: There is a 6 mm pancreatic head hypodensity, similar to the prior study and likely represen ting an IPMN Adrenal glands: There is a 19 mm left adrenal adenoma Kidneys: There are bilateral nonobstructing renal calculi. The largest is located within the lower po le of the left kidney measuring 7 mm. There is a 27 mm right renal cyst. There is a 20 mm left renal cyst. There is no hydronephrosis. No ureteral calculi are visualized. Multiple periureteral calculi l ikely represent phleboliths as there is no evidence of ureteral or collecting system dilatation. Bowel: There are no transition zones indicate bowel obstruction. There is colonic diverticulosis. The re is no evidence of acute diverticulitis. There is scattered small bowel air-fluid levels. This is a nonspecific finding which could be secondary to a enteritis. The appendix is not visualized. There i s no evidence of acute appendicitis. Borderline gastric wall thickening remain similar to the prior s tudy and may be secondary to incomplete distention. Peritoneum: There is no intraperitoneal free air or abdominal ascites. Vasculature: The abdominal aorta is normal in course and caliber. Adenopathy: None. Pelvic viscera: The uterus is surgically absent. Skeletal structures: No destructive osseous lesions are seen. IMPRESSION: 1. No evidence of bowel obstruction. No evidence of free air 2. Borderline gastric wall thickening possibly secondary to incomplete distention 3. Scattered small bowel air-fluid levels. This is a nonspecific finding which can be seen in enterit is. 4. Bilateral nephrolithiasis. No hydronephrosis. No ureteral calculi identified. 5. Diverticulosis. No evidence of acute diverticulitis. 6. Stable left adrenal adenoma. 7. Surgically absent gallbladder and uterus. Electronically signed by: Ankur Chu M.D. 09/11/2019 5:57 PM
[2019-09-11] MEDS ORDERED: NITROGLYCERIN SL 0.4 MG/TAB TAB SL PRN (21:06)
[2019-09-11] MEDS ORDERED: ACETAMINOPHEN 325 MG TAB PO PRN (21:06)
[2019-09-11] MEDS ORDERED: ONDANSETRON INJ 2 MG/ML 2 ML VIAL IV PRN (21:06)
[2019-09-11] MEDS ORDERED: METOPROLOL TARTRATE 1 MG/ML VIAL IV PRN (21:06)
[2019-09-11] MEDS ORDERED: PIPERACILL/TAZOBAC CONSULT ACTIVE PRN (21:06)
[2019-09-11] MEDS ORDERED: GLUCOSE 10 TABS/TUBE PO PRN (21:30)
[2019-09-11] MEDS ORDERED: GLUCOSE 40% GEL 15 GM TUBE PO PRN (21:30)
[2019-09-11] MEDS ORDERED: DEXTROSE 50% 50 ML SYRINGE IV PRN (21:30)
[2019-09-11] MEDS ORDERED: CARBOHYDRATES FOR HYPOGLYCEMIA PO PRN (21:30)
[2019-09-11] MEDS ORDERED: GLUCAGON FOR INJ 1 MG VIAL IM PRN (21:30)
[2019-09-11] MEDS ORDERED: PIPERACILLIN/TAZOBACTAM 3.375 GM in DEXTROSE 5% 100 ML IV ONE (21:45)
[2019-09-11] MEDS: SODIUM CHLORIDE 0.9% 1000ML 1,000 ML IV SCH (22:06)
[2019-09-11] MEDS: PANTOprazole 40 MG TAB PO SCH (22:22)
--- NOTE | 2019-09-11 23:02 | History and Physical Report ---
DATE OF ADMISSION: 09/11/2019 CHIEF COMPLAINT: Nausea, vomiting and diarrhea. HISTORY OF PRESENT ILLNESS: This is an 89-year-old female with past medical history significant for type 2 diabetes, not on any medication, history of gout, history of benign neoplasm of adrenal gland, hyperlipidemia, hypothyroidism, hypertension, paroxysmal atrial tachycardia, GERD, acoustic neuroma, Alzheimer disease, spinal stenosis, history of bladder cancer, major depression, generalized anxiety disorder, who lives with her son, presents with nausea, 1 episode of vomiting and diarrhea. The patient says that at Day last night had good dinner and in the morning, she woke up, she had nausea and vomiting and abdominal discomfort mostly in the right upper quadrant region and large amount of diarrhea, but denies any blood in the stools or blood in the vomitus. Initially, she had a fever at home which prompted her son to bring her to the hospital. Currently, resting comfortably and hemodynamically stable. Blood pressure is on the lower side. Her white count is elevated at 21,000. Lactic acid is 3.8, creatinine is 1.7. Mild elevation of AST, ALT and alkaline phosphatase. The patient seems comfortable. The patient has a history of cholangitis, papillary stenosis, status post pancreatic and common bile duct stent placement and a stent was placed in January 2017, stent was removed in March 2017. She has some tinnitus from her right acoustic neuroma, following with ENT. Denies any headaches. , has some mild runny nose, mild sore throat. She says she eats regular food and she swallows okay. Denies any cough. Appetite is good. No chest pain. She says she was short of breath earlier, but resolved now. Mild abdominal discomfort. Denies any burning. She has some discomfort while micturating and she is ambulatory, but not great. She says she ambulates with a walker. ALLERGIES: MIRTAZAPINE, OXYCODONE, AND MORPHINE. PAST MEDICAL HISTORY: As mentioned above. PAST SURGICAL HISTORY: Cystoscopy; multiple ERCPs; multiple hemorrhoidectomy, internal and external; adenoidectomy; tonsillectomy; cervical spine surgery; hysterectomy; right carpal tunnel release; right cataract removal; sigmoidoscopy; flexible cholecystectomy. MEDICATIONS: Currently, the patient is on levothyroxine 75 mcg p.o. daily, folic acid 1 mg p.o. daily, Toprol-XL 50 mg p.o. daily, omeprazole 40 mg p.o. b.i.d., lisinopril 5 mg p.o. daily, allopurinol 10 mg p.o. daily, vitamin B12 1000 mcg daily, Motrin as needed, MiraLax daily, Mylicon 4 times a day p.r.n., multivitamins daily, fish oil 1 tablet daily, Tylenol extra strength 1 to 2 tablets 3-4 times a day p.r.n., Caltrate 600 plus D 1 tablet b.i.d. FAMILY HISTORY: Significant for: Father had lung cancer. Mother had lung cancer. Sister has skin cancer. Daughter has thyroid disorder. SOCIAL HISTORY: , lives with son, former smoker, smoked until she was 38 years old. No alcohol use, no drug use. REVIEW OF SYMPTOMS: As per HPI. Rest of review of systems is negative. PHYSICAL EXAMINATION: GENERAL: The patient is old and frail, not in acute distress. VITAL SIGNS: Temperature 36.7, pulse 87, respiratory rate 20, blood pressure 99/49, oxygen 97% on room air. HEENT: No pallor, no icterus. Pupils equal, round, reactive to light. NECK: No JVD, no neck masses, no carotid bruits. CARDIOVASCULAR: S1, S2 heard, regular rate and rhythm, no murmur, no gallop. RESPIRATORY SYSTEM: Normal AP diameter. No accessory muscle use. No wheezing, no crackles. ABDOMEN: Soft, bowel sounds present. Mild discomfort, right upper quadrant. No guarding, no rigidity. CENTRAL NERVOUS SYSTEM: Cranial nerves II-XII grossly intact. Nonfocal. EXTREMITIES: No edema, no erythema. LABORATORY DATA: WBC 31.3, hemoglobin 13.5, hematocrit 40, platelets 332. Sodium 138, potassium 3.9, chloride 107, bicarbonate 20, BUN 28, creatinine 1.74, serum glucose 194, lactate 3.8, calcium 10.2, AST 246, ALT 165, alkaline phosphatase is 158. Troponin I less than 0.015. Urinalysis negative. CT of abdomen and pelvis, no evidence of bowel obstruction, no evidence of free air, moderate gastric wall thickening, possibly secondary to incomplete distention. Had small bowel air fluid level, this is nonspecific finding which can be possibly from enteritis, bilateral nephrolithiasis, no hydronephrosis, no ureteral calculi identified, diverticulosis, no evidence of acute diverticulitis, stable left adrenal adenoma, surgically absent gallbladder and uterus. Chest x-ray: No acute findings. EKG: Sinus tachycardia, first degree AV block at a rate of 107, nonspecific T-wave abnormality. ASSESSMENT AND PLAN: This 89-year-old female presents with nausea, vomiting and diarrhea. 1. Nausea, vomiting and diarrhea, had fever at home. Blood pressure is borderline, possible sepsis with elevated white count. borderline blood pressure, Elevated lactic acid 3.8, mild elevation of transaminitis and alkaline phosphatase.Follow stool studies, iv fluids, clear liquid diet. Follow repeat labs. 2. History of cholangitis, history of biliary papillary stenosis in the past, but CT of abdomen and pelvis unremarkable except for possible mild enteritis, her symptoms also could be viral gastroenteritis. In the ER, she was given cefepime. will empirically start on IV Zosyn. Follow the stool cultures, stool for C. diff, flu and also blood cultures. IV fluids, normal saline at 125 mL per hour. Follow the repeat lactic acid. Monitor the hemodynamics. Follow repeat labs in am. If any concerning will do liver/abdomen ultrasound.Monitor on the medical tele floor. 3. Diabetes, not on any medications. We will follow HbA1c level. She is currently on clear liquid diet. We will place her on insulin sliding scale. 4. Acute kidney injury on chronic kidney disease stage III, baseline creatinine of 1.2 to 1.5, presents with creatinine of 1.7. Getting fluids. Holding lisinopril. Follow the labs. 5. History of hypertension, currently hypotensive. We will hold the lisinopril and Toprol-XL. We will place her on IV Lopressor p.r.n. Monitor the blood pressure. 6. History of paroxysmal atrial tachycardia, on Toprol xl which is on hold, on IV Lopressor p.r.n. 7. Gastroesophageal reflux disease. Continue PPI. 8. Gout. Continue allopurinol. 9. Hypothyroidism. Continue Synthroid. 10. Deep venous thrombosis prophylaxis, sequential compression devices for now. 11. Disposition: Admit to tele floor. Expect discharge home and follow with family doctor. PT and OT prior to discharge. Social Service to help with discharge planning. Code status: Full code as per my discussion with the patient and the son. IZABELA
[2019-09-12] MEDS: PIPERACILLIN/TAZOBACTAM 3.375 GM in DEXTROSE 5% 100 ML IV SCH ×3 (03:32→20:59)
[2019-09-12] MEDS: SODIUM CHLORIDE 0.9% 1000ML 1,000 ML IV SCH ×3 (05:19→22:09)
[2019-09-12] MEDS: LEVOTHYROXINE SODIUM 75 MCG TABLET PO SCH (05:26)
[2019-09-12 05:56] LABS: Basophils # (auto) 0.03 K/uL (0-0.2); Basophils % (auto) 0.2 %; Eosinophils # (auto) 0.04 K/uL (0-0.5); Eosinophils % (auto) 0.3 %; Hematocrit (blood only) 33.5 % (37-47); Hemoglobin 11.1 g/dL (12.0-16.0); Immature Granulocytes # (auto) 0.03 K/uL (0.00-0.02); Immature Granulocytes % (auto) 0.2 %; Lymphocytes # (auto) 0.61 K/uL (1.2-3.4); Mean Corpuscular Hemoglobin 32.7 pg (25-34); Mean Corpuscular Hgb Conc 33.1 g/dL (32-36); Mean Corpuscular Volume 98.8 fL (80-100); Mean Platelet Volume 10.2 fL (7.4-10.4); Monocytes # (auto) 0.42 K/uL (0.11-0.59); Monocytes % (auto) 3.5 %; Neutrophils # (auto) 11.01 K/uL (1.4-6.5); Neutrophils % (auto) 90.8 %; Platelet Count 285 K/uL (130-400); RDW Coefficient of Variation 15.4 % (11.5-14.5); RDW Standard Deviation 55.4 fL (36.4-46.3); Red Blood Count 3.39 M/uL (4.2-5.4); White Blood Count 12.14 K/uL (4.8-10.8)
[2019-09-12 06:00] LABS: BUN Creatinine Ratio 19.4 (10-20); Calcium 9.2 mg/dl (8.5-10.1); Creatinine Clr Calc Pharmacy 23.7 ml/min; Est GFR (African American) 39.4; Potassium 4.3 mmol/L (3.5-5.1)
[2019-09-12 06:42] LABS: Influenza A virus by PCR Neg for Influ A (Neg); Influenza B virus by PCR Neg for Influ B (Neg)
[2019-09-12 07:16] LABS: Estimated Average Glucose 157 mg/dl; Hemoglobin A1C 7.1 % (4.5-5.6)
[2019-09-12] MEDS: INSULIN ASPART 100 UNITS/ML 3 ML PEN SC SCH ×4 (08:54→21:00)
[2019-09-12] MEDS: FOLIC ACID 1 MG TAB PO SCH (08:54)
[2019-09-12] MEDS: PANTOprazole 40 MG TAB PO SCH ×2 (08:55→21:01)
[2019-09-12] MEDS: ALLOPURINOL 300 MG TAB PO SCH (08:55)
[2019-09-12] MEDS: MULTIVITAMIN TAB PO SCH (08:55)
--- NOTE | 2019-09-12 13:54 | Hospitalist Progress Note ---
Date of Service September 12, 2019 Assessment & Plan (1) Vomiting and diarrhea: (2) Gastroenteritis: (3) Lactic acidosis: (4) Leukocytosis: (5) Sepsis: Nausea, vomiting resolved CT abd suggestive of enteritis Possible Gastroenteritis Currently on zosyn and cefepime. If blood culture is negative, will discontinue Hypotension resolved, lactic acidosis resolved, leukocytosis improved from 21k to 12k (6) TENNILLE (acute kidney injury): (7) CKD (chronic kidney disease) stage 3, GFR 30-59 ml/min: TENNILLE on CKD3. Cr improved from 1.72 to 1.39 TENNILLE resolved (8) DM2 (diabetes mellitus, type 2): Aic is 7.1 Not on any antidiabetic at home Advance diet as tolerated (9) Hypothyroidism: TSH normal 1.94 Continue home levothyroxine 75mcg dly (10) Hypertension: Hypotension has resolved BP is currently normal Will continue to hold antihypertensive for now and monitor BP (11) History of paroxysmal atrial tachycardia: Rate controlled EKG is sinus with 1st degree AVB (12) GERD (gastroesophageal reflux disease): Continue po ppi (13) Gout: Continue allopurinol (14) DVT prophylaxis: hep sq Subjective Patient seen and examined Reports nausea and vomiting has resolved. Reports mild chronic hearing loss Reported some occasional abdominal discomfort but no pain. Had not had any diarrhea today. Denied fevers, chills Denied cough, chest pain, shortness of breath Review of Systems Review of Systems: All systems reviewed and unremarkable except for mentioned above. Physical Exam Physical Exam: General: Elderly, frail, no distress Eyes: PERRL, conjunctivae normal ENMT: External ear and nose normal, oropharynx normal, some missing teeth Neck: Normal visual inspection, no tracheal deviation, no swelling noted Respiratory: Normal respiratory effort, no respiratory distress, lungs clear to auscultation, no crackles and no wheezes Cardiovascular: Pulse is RRR. S1 S2 Gastrointestinal (Abdomen): Abdomen is not distended, soft, non-tender to palpation, no guarding, no palpable hepatosplenomegaly, normal bowel sounds Musculoskeletal: No cyanosis or clubbing Genitourinary: No CVA tenderness Skin: No rash noted on gross inspection, No ulcers noted Neurologic: Alert and oriented x 3, No focal weakness Results & Data Vital Signs (Past 12 Hours) Vital Signs Temp Pulse Resp BP Pulse Ox 09/12/19 11:20 36.7 C 73 20 139/61 96 09/12/19 07:52 37.5 C 81 18 110/42 L 95 Laboratory Results Abnormal lab results 09/11/19 09/11/19 09/11/19 Range/Units 16:28 16:28 16:28 WBC 21.32 H (4.8-10.8) K/uL RBC 4.07 L (4.2-5.4) M/uL Hgb (12.0-16.0) g/dL Hct (37-47) % RDW Std Deviation 55.5 H (36.4-46.3) fL RDW Coeff of Mis 15.4 H (11.5-14.5) % Immature Gran # (Auto) 0.05 H (0.00-0.02) K/uL Neut # (Auto) 20.30 H (1.4-6.5) K/uL Lymph # (Auto) 0.45 L (1.2-3.4) K/uL Chloride (98-107) mmol/L Carbon Dioxide 20 L (21-32) mmol/L BUN 28 H (7-18) mg/dl Creatinine 1.72 H (0.6-1.2) mg/dl Glucose 194 H (70-99) mg/dl POC Glucose (70-99) Hemoglobin A1c (4.5-5.6) % Lactate 3.8 H* (0.4-2.0) mmol/L Calcium 10.2 H (8.5-10.1) mg/dl AST 246 H (15-37) U/L ALT 165 H (12-78) U/L Alkaline Phosphatase 158 H (45-117) U/L Globulin 4.3 H (2.5-4.0) gm/dl Urine Protein (Negative) U Epithel Cells (Auto) (0-5) /lpf 09/11/19 09/12/19 09/12/19 Range/Units 17:20 05:27 05:27 WBC 12.14 H (4.8-10.8) K/uL RBC 3.39 L (4.2-5.4) M/uL Hgb 11.1 L (12.0-16.0) g/dL Hct 33.5 L (37-47) % RDW Std Deviation 55.4 H (36.4-46.3) fL RDW Coeff of Mis 15.4 H (11.5-14.5) % Immature Gran # (Auto) 0.03 H (0.00-0.02) K/uL Neut # (Auto) 11.01 H (1.4-6.5) K/uL Lymph # (Auto) 0.61 L (1.2-3.4) K/uL Chloride 112 H (98-107) mmol/L Carbon Dioxide (21-32) mmol/L BUN 27 H (7-18) mg/dl Creatinine 1.39 H D (0.6-1.2) mg/dl Glucose 125 H (70-99) mg/dl POC Glucose (70-99) Hemoglobin A1c (4.5-5.6) % Lactate (0.4-2.0) mmol/L Calcium (8.5-10.1) mg/dl AST (15-37) U/L ALT (12-78) U/L Alkaline Phosphatase (45-117) U/L Globulin (2.5-4.0) gm/dl Urine Protein 2+ H (Negative) U Epithel Cells (Auto) 20-30 H (0-5) /lpf 09/12/19 09/12/19 09/12/19 Range/Units 05:27 07:34 11:18 WBC (4.8-10.8) K/uL RBC (4.2-5.4) M/uL Hgb (12.0-16.0) g/dL Hct (37-47) % RDW Std Deviation (36.4-46.3) fL RDW Coeff of Mis (11.5-14.5) % Immature Gran # (Auto) (0.00-0.02) K/uL Neut # (Auto) (1.4-6.5) K/uL Lymph # (Auto) (1.2-3.4) K/uL Chloride (98-107) mmol/L Carbon Dioxide (21-32) mmol/L BUN (7-18) mg/dl Creatinine (0.6-1.2) mg/dl Glucose (70-99) mg/dl POC Glucose 116 H 142 H (70-99) Hemoglobin A1c 7.1 H (4.5-5.6) % Lactate (0.4-2.0) mmol/L Calcium (8.5-10.1) mg/dl AST (15-37) U/L ALT (12-78) U/L Alkaline Phosphatase (45-117) U/L Globulin (2.5-4.0) gm/dl Urine Protein (Negative) U Epithel Cells (Auto) (0-5) /lpf (1) Sepsis Sepsis acute organ dysfunction status: unspecified Sepsis type: sepsis due to unspecified organism Qualified Code(s): A41.9 - Sepsis, unspecified organism (2) Leukocytosis Leukocytosis type: unspecified Qualified Code(s): D72.829 - Elevated white blood cell count, unspecified
[2019-09-12] MEDS: HEPARIN SOD 5,000 UNIT/0.5 ML VIAL SQ SCH (21:00)
[2019-09-13] MEDS: PIPERACILLIN/TAZOBACTAM 3.375 GM in DEXTROSE 5% 100 ML IV SCH (04:45)
[2019-09-13] MEDS: SODIUM CHLORIDE 0.9% 1000ML 1,000 ML IV SCH (05:16)
[2019-09-13 06:43] LABS: Hematocrit (blood only) 31.3 % (37-47); Hemoglobin 10.5 g/dL (12.0-16.0); Mean Corpuscular Hemoglobin 32.5 pg (25-34); Mean Corpuscular Hgb Conc 33.5 g/dL (32-36); Mean Corpuscular Volume 96.9 fL (80-100); Mean Platelet Volume 10.3 fL (7.4-10.4); Platelet Count 272 K/uL (130-400); RDW Coefficient of Variation 15.5 % (11.5-14.5); RDW Standard Deviation 55.2 fL (36.4-46.3); Red Blood Count 3.23 M/uL (4.2-5.4); White Blood Count 5.47 K/uL (4.8-10.8)
[2019-09-13] MEDS: LEVOTHYROXINE SODIUM 75 MCG TABLET PO SCH (06:58)
[2019-09-13 07:20] LABS: BUN Creatinine Ratio 13.6 (10-20); Calcium 8.7 mg/dl (8.5-10.1); Creatinine Clr Calc Pharmacy 28.5 ml/min; Est GFR (Non-African American) 41.4
[2019-09-13] MEDS: INSULIN ASPART 100 UNITS/ML 3 ML PEN SC SCH (08:12)
[2019-09-13] MEDS: FOLIC ACID 1 MG TAB PO SCH (08:13)
[2019-09-13] MEDS: ALLOPURINOL 300 MG TAB PO SCH (08:13)
[2019-09-13] MEDS: PANTOprazole 40 MG TAB PO SCH (08:13)
[2019-09-13] MEDS: MULTIVITAMIN TAB PO SCH (08:13)
[2019-09-13] MEDS: HEPARIN SOD 5,000 UNIT/0.5 ML VIAL SQ SCH (08:13)
--- NOTE | 2019-09-13 13:44 | Discharge Summary ---
Date of Service September 13, 2019 Admission HPI Per Admitting Provider This is an 89-year-old female with past medical history significant for type 2 diabetes, not on any medication, history of gout, history of benign neoplasm of adrenal gland, hyperlipidemia, hypothyroidism, hypertension, paroxysmal atrial tachycardia, GERD, acoustic neuroma, Alzheimer disease, spinal stenosis, history of bladder cancer, major depression, generalized anxiety disorder, who lives with her son, presents with nausea, 1 episode of vomiting and diarrhea. The patient says that at Day last night had good dinner and in the morning, she woke up, she had nausea and vomiting and abdominal discomfort mostly in the right upper quadrant region and large amount of diarrhea, but denies any blood in the stools or blood in the vomitus. Initially, she had a fever at home which prompted her son to bring her to the hospital. Currently, resting comfortably and hemodynamically stable. Blood pressure is on the lower side. Her white count is elevated at 21,000. Lactic acid is 3.8, creatinine is 1.7. Mild elevation of AST, ALT and alkaline phosphatase. The patient seems comfortable. The patient has a history of cholangitis, papillary stenosis, status post pancreatic and common bile duct stent placement and a stent was placed in January 2017, stent was removed in March 2017. She has some tinnitus from her right acoustic neuroma, following with ENT. Denies any headaches. , has some mild runny nose, mild sore throat. She says she eats regular food and she swallows okay. Denies any cough. Appetite is good. No chest pain. She says she was short of breath earlier, but resolved now. Mild abdominal discomfort. Denies any burning. She has some discomfort while micturating and she is ambulatory, but not great. She says she ambulates with a walker. Admission Exam Per Admitting Provider GENERAL: The patient is old and frail, not in acute distress. VITAL SIGNS: Temperature 36.7, pulse 87, respiratory rate 20, blood pressure 99/49, oxygen 97% on room air. HEENT: No pallor, no icterus. Pupils equal, round, reactive to light. NECK: No JVD, no neck masses, no carotid bruits. CARDIOVASCULAR: S1, S2 heard, regular rate and rhythm, no murmur, no gallop. RESPIRATORY SYSTEM: Normal AP diameter. No accessory muscle use. No wheezing, no crackles. ABDOMEN: Soft, bowel sounds present. Mild discomfort, right upper quadrant. No guarding, no rigidity. CENTRAL NERVOUS SYSTEM: Cranial nerves II-XII grossly intact. Nonfocal. EXTREMITIES: No edema, no erythema. Principal Diagnosis Gastroenteritis Acute on chronic kidney disease Discharge Exam General: Elderly, no distress Eyes: PERRL, conjunctivae normal ENMT: External ear and nose normal, oropharynx normal, some missing teeth Neck: Normal visual inspection, no tracheal deviation, no swelling noted Respiratory: Normal respiratory effort, no respiratory distress, lungs clear to auscultation, no crackles and no wheezes Cardiovascular: Pulse is RRR. S1 S2 Gastrointestinal (Abdomen): Abdomen is not distended, soft, non-tender to palpation, no guarding, no palpable hepatosplenomegaly, normal bowel sounds Musculoskeletal: No cyanosis or clubbing Genitourinary: No CVA tenderness Skin: No rash noted on gross inspection, No ulcers noted Neurologic: Alert and oriented x 3, No focal weakness Discharge Data Allergies Allergy/AdvReac Type Severity Reaction Status Date / Time mirtazapine AdvReac Mild Increased Verified 09/11/19 21:10 Anxiety oxycodone AdvReac Mild GI SYMPTOMS Verified 09/11/19 16:52 morphine AdvReac Unknown NAUSEA Verified 09/11/19 16:52 Consultations 09/11/19 18:39 ED Decision to Admit Stat 09/11/19 21:06 Consult Case Management - Discharge Planning Routine Ordered Studies 09/11/19 16:22 CT abd pelvis wo con Stat 1. No evidence of bowel obstruction. No evidence of free air 2. Borderline gastric wall thickening possibly secondary to incomplete distention 3. Scattered small bowel air-fluid levels. This is a nonspecific finding which can be seen in enteritis. 4. Bilateral nephrolithiasis. No hydronephrosis. No ureteral calculi identified. 5. Diverticulosis. No evidence of acute diverticulitis. 6. Stable left adrenal adenoma. 7. Surgically absent gallbladder and uterus. Hospital Course (1) Vomiting and diarrhea: (2) Gastroenteritis: (3) Lactic acidosis: (4) Leukocytosis: (5) Sepsis: Nausea, vomiting resolved CT abd suggestive of enteritis Possible Gastroenteritis Was intially on zosyn and cefepime. Discontinued after Blood cultures returned negative and symptoms resolved Hypotension resolved, lactic acidosis resolved, leukocytosis improved from 21k to 5k (6) TENNILLE (acute kidney injury): (7) CKD (chronic kidney disease) stage 3, GFR 30-59 ml/min: TENNILLE on CKD3. Cr improved from 1.72 to 1.18 TENNILLE resolved (8) DM2 (diabetes mellitus, type 2): Aic is 7.1 Not on any antidiabetic at home (9) Hypothyroidism: TSH normal 1.94 Continue home levothyroxine 75mcg dly (10) Hypertension: Hypotension has resolved BP is currently normal Antihypertensives were initially held Resume home BP meds (11) History of paroxysmal atrial tachycardia: Rate controlled EKG is sinus with 1st degree AVB (12) GERD (gastroesophageal reflux disease): Continue po ppi (13) Gout: Continue allopurinol Total Time Total Time Spent Total Time Spent (In Minutes): 25 Total Time Includes: Examination of the Patient, Discharge Planning and Medication Reconciliation Discharge Plan Discharge Items Patient Disposition: Home - Self-Care Reason For Visit: N/V,DIARRHEA Discharge Diagnosis: Gastroenteritis Acute on chronic kidney disease Condition on Discharge: Good Activity: Resume your previous activity Non-emergency contact: Primary Care Provider Call non-emergency contact if: you have any medication questions and your symptoms worsen Follow-up/Referrals: Jeff Good DO [Primary Care Provider] - Diet: Carb Consistent or DM2 Addtl Attending Provider Instructions: Mrs Sandhu. You came to the hospital complaining of nausea, vomiting and diarrhea. You were evaluated and found to have gastroenteritis. This was treated with iv fluids and antibiotics. Your symptoms resolved. You also had acute kidney injury due to this which is resolved. Please follow up your Primary Doctor for continued management of your medical problems including your hypertension. It was a pleasure taking care of you. Pending Studies at Discharge: No Stand-Alone Forms: My [facility]abs, Smoking Cessation Medications and DC Order Prescriptions: Continued multivitamin Tablet 1 tab PO DAILY RF: 0 metoprolol succinate 50 mg tablet extended release 24 hr 50 mg PO DAILY RF: 0 omeprazole 40 mg capsule,delayed release(DR/EC) 40 mg PO BID RF: 0 acetaminophen 650 mg Tablet Extended Release 650 mg PO BID PRN (Reason: Pain) RF: 0 levothyroxine 75 mcg tablet 75 mcg PO DAILY RF: 0 folic acid 1 mg tablet 1 mg PO DAILY RF: 0 allopurinol 300 mg tablet 300 mg PO DAILY RF: 0 lisinopril 5 mg tablet 5 mg PO DAILY RF: 0 Calcium 600 + D(3) 600 mg calcium- 200 unit Capsule 1 cap PO BID RF: 0 omega [id number]-[id number]-fish oil [Fish Oil] 1,000 mg (120 mg-180 mg) Capsule 1 cap PO DAILY RF: 0 Discharge Orders: Discharge Order (Routine); Ordered 09/13/19 Ordered By: Yana Lopez/Other Patient Handouts: Diabetes [facility] Complications, Diabetes Healthy Meals, Diabetes Carbs, Diabetes Exercise Benefits, A1C Admission Data Admit Date/Time: 09/11/19 19:49 Attending Provider: Yana Murray I. Admit Provider: Richard Monique Primary Care Provider: Jeff Good Other Providers: Richard Monique Other Interventions: Discharge Summary Assessment (RN) Last Done: 09/13/19 10:43 DC Date/Time DO NOT enter until pt leaves facility: 09/13/19 12:24
== END 2019-09-13 12:24 | disposition home or self-care (01) | DRG 392 ==
LOC: ED 16:07 → 2E 19:49
DX: F32.9 Major depressive disorder, single episode, unspecified; N17.9 Acute kidney failure, unspecified; E11.9 Type 2 diabetes mellitus without complications; R11.2 Nausea with vomiting, unspecified; I95.9 Hypotension, unspecified; K21.9 Gastro-esophageal reflux disease without esophagitis; G30.9 Alzheimer's disease, unspecified; M10.9 Gout, unspecified; K52.9 Noninfective gastroenteritis and colitis, unspecified; N18.3 Chronic kidney disease, stage 3 (moderate); R19.7 Diarrhea, unspecified; E03.9 Hypothyroidism, unspecified; Z88.5 Allergy status to narcotic agent; F02.80 Dementia in other diseases classified elsewhere, unspecified severity, without behavioral disturbance, psychotic disturbance, mood disturbance, and anxiety; E78.5 Hyperlipidemia, unspecified

== ENCOUNTER 2020-10-01 12:11 | Inpatient (IN) ==
[2020-10-01] MEDS ORDERED: DEXAMETHASONE SOD INJ 10 MG/ML VIAL IV ONE (12:33)
[2020-10-01] MEDS ORDERED: ACETAMINOPHEN 1,000 MG/100 ML VIAL IV STA (12:33)
--- NOTE | 2020-10-01 12:39 | Emergency Department Note ---
History of Present Illness General Chief complaint: Weakness Stated complaint: WEAKNESS, DIARRHEA, FATIGUE, DEHYDRATED Time Seen by Provider: 10/01/20 12:25 Source: patient, family (son, Denis Rankin, via telephone call), RN notes reviewed and old records reviewed Mode of arrival: ambulatory Limitations: no limitations History of Present Illness Provider complaint: dehydrated, exposure to covid Onset (ago): day(s) 10 Location: abdomen Radiation: back Pain Consistency: + intermittent Maximum Pain Intensity: 5 Current Pain Intensity: 5 Quality: + aching Relieved By: + immobilization and + rest Exacerbated By: + movement Associated symptoms: + denies other symptoms; no chest pain, no diaphoresis, no fever/chills, no headaches, no loss of appetite, no nausea/vomiting and no shortness of breath Treatments prior to arrival: none This is an 89-year-old female brought to the emergency department by her son. The patient was in contact with her daughter who tested positive for Covid proximately 5 days ago. Since that time the patient will not eat or drink anything. She has become dehydrated and generally weak. Home Medications Medication Instructions Recorded Confirmed Type allopurinol 300 mg PO HS 03/14/19 10/01/20 History folic acid 1 mg PO QAM 03/14/19 10/01/20 History levothyroxine 75 mcg PO QAM 03/14/19 10/01/20 History lisinopril 5 mg PO QAM 03/14/19 10/01/20 History metoprolol succinate 50 mg PO QAM 03/14/19 10/01/20 History multivitamin 1 tab PO QAM 03/14/19 10/01/20 History omeprazole 40 mg PO BID 03/14/19 10/01/20 History cyanocobalamin (vitamin B-12) 0 mcg PO QAM 10/01/20 10/01/20 History [Vitamin B-12] melatonin 0 mg PO HS PRN 10/01/20 10/01/20 History Allergies Allergy/AdvReac Type Severity Reaction Status Date / Time mirtazapine AdvReac Mild Increased Verified 10/01/20 13:46 Anxiety oxycodone AdvReac Mild GI SYMPTOMS Verified 10/01/20 13:46 morphine AdvReac Unknown NAUSEA Verified 10/01/20 13:46 Past Med/Surg History Medical History (Updated 10/02/20 @ 19:13 by Ministerio Mata MD) 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 Dementia Diverticulitis Family History Other Family history non-contributory Social History Smoking Status: Former smoker Tobacco Type: Cigarettes Second Hand Exposure: No; Hx Alcohol Use: No Hx Substance Use: No Preferred Language: British Communication Ability: isolation Hearing Ability: Hard of Hearing Collar Stitcher Required: No Beliefs That Will Affect Care: None marital status: / Current Living Situation: Family current occupational status: retired Other Information That Helps Us Care for You: No Feels Safe at Home: Yes Safety Concerns: Feels Safe At This Time Assistive Devices: Glasses and Walker Review of Systems A total of 10 systems reviewed and were otherwise negative Physical Exam Vital Signs Vital Signs - 24 hr 10/01/20 12:13 10/01/20 12:57 10/01/20 13:06 Temperature 38 C H Temperature Source Skin Pulse Rate 90 Pulse Rate [Left Finger] 71 Respiratory Rate 18 20 Respiratory Effort / Characteristics Non-Labored Spontaneous Respiratory Depth Normal Respiratory Pattern Regular Blood Pressure 161/97 H Blood Pressure [Left Arm] 110/48 L Blood Pressure Mean 118 Blood Pressure Mean [Left Arm] 68 Blood Pressure Position Lying Pulse Oximetry 96 97 96 Oxygen Delivery Method Room Air Room Air Room Air Sepsis Recent Fever Within 48 Hours No Sepsis New/Unexplained Change in Mental Status N/A Sepsis Action Taken by Nursing No Action Required VITAL SIGNS - Vital signs and nursing notes were reviewed. GENERAL - 89-year-old female appearing stated age who is in no acute distress. Communicates well with provider and answers questions appropriately. SKIN - Without rashes. HEAD - NC/AT. EYES - PERRL with EOMI bilaterally. Sclera anicteric. Palpebral conjunctiva pink and moist with no injection noted. EARS - No deformities of external structures noted on gross examination bilaterally. No pain elicited with palpation of the tragus bilaterally. External auditory canals without discharge or otorrhea. Tympanic membranes pearly leyva without retraction or bulging. No fluid or purulent material visualized behind the TM. Handle of malleus, umbo, cone of light, pars tensa/flaccid all easily visualized. NOSE - Midline and without cyanosis. No epistaxis or purulent drainage noted. Septum midline without deviation or septal hematoma noted. MOUTH/OROPHARYNX - Without perioral cyanosis. Buccal mucosa pink and moist and without leukoplakia. Tongue midline with equal elevation of palate bilaterally. No tonsillar hypertrophy, erythema, or exudates noted. dentition noted. NECK - Neck with FROM. Supple to palpation. lymphadenopathy noted. No nuchal rigidity. LUNGS - Chest wall symmetric without accessory muscle use, intercostals retractions, or central cyanosis. Normal vesicular breath sounds CTA B/L. No wheezes, rales, or rhonchi appreciated. CARDIAC - RRR with S1/S2. No murmur, rubs, or gallops appreciated. ABDOMEN - Abdominal contour without pulsations or visible masses. BS norm oactive all four quadrants. No tenderness, palpable masses, hepatosplenomegaly, or ascites noted. EXTREMITIES - No clubbing or peripheral cyanosis. No pretibial edema present. +3/5 radial, posterior tibial, and dorsalis pedis pulses palpated throughout. +5/5 strength noted in UE/LE bilaterally. NEUROLOGIC - Cranial nerves II through XII grossly intact. Sensory intact to light touch throughout. Patellar reflexes +2/4. PSYCH - A&Ox3 and cooperates fully with examiner. Pt is very pleasant and in teracts well with examiner. Course Administered Medications Allopurinol (Allopurinol 300 Mg Tab) 300 mg PO HS [facility] Stop: 10/31/20 20:59 Last Admin: 10/01/20 21:10 Dose: 300 mg Documented by: [id number] Cyanocobalamin (Cyanocobalamin 500 Mcg Tablet (Vitamin B-12)) 1,000 mcg PO QAM [facility] Stop: 11/01/20 08:59 Last Admin: 10/02/20 08:19 Dose: 1,000 mcg Documented by: [id number] Folic Acid (Folic Acid 1 Mg Tab) 1 mg PO QAM [facility] Stop: 11/01/20 08:59 Last Admin: 10/02/20 08:19 Dose: 1 mg Documented by: [id number] Heparin Sodium (Porcine) (Heparin Sod 5,000 Unit/0.5 Ml Vial) 5,000 units SQ Q12 [facility] Stop: 10/31/20 20:59 Last Admin: 10/02/20 08:19 Dose: 5,000 units Documented by: [id number] Admin: 10/01/20 23:43 Dose: 5,000 units Documented by: [id number] Ceftriaxone Sodium 1,000 mg/ (Dextrose) 60 mls @ 100 mls/hr IV DAILY [facility]; Protocol Stop: 10/07/20 09:14 Last Infusion: 10/02/20 10:53 Dose: 0 mls/hr Documented by: [id number] Admin: 10/02/20 10:09 Dose: 100 mls/hr Documented by: [id number] Sodium Bicarbonate 150 meq/ (Dextrose) 1,150 mls @ 75 mls/hr IV .[id number] [facility] Stop: 11/01/20 09:29 Last Admin: 10/02/20 10:53 Dose: 75 mls/hr Documented by: [id number] Levothyroxine Sodium (Levothyroxine Sodium 75 Mcg Tablet) [facility]: 11/01/20 06:29 Last Admin: 10/02/20 05:36 Dose: 75 mcg Documented by: [id number] Metoprolol Succinate (Metoprolol Succ 50mg Ext Rel Tab) 50 mg PO [facility] Stop: 11/01/20 08:59 Last Admin: 10/02/20 08:19 Dose: 50 mg Documented by: [id number] Multivitamins (Multivitamin Tab) 1 tab PO [facility] Stop: 11/01/20 08:59 Last Admin: 10/02/20 08:19 Dose: 1 tab Documented by: [id number] Pantoprazole Sodium (Pantoprazole 40 Mg Tab) 40 mg PO BID [facility]; Protocol Stop: 10/31/20 20:59 Last Admin: 10/02/20 08:19 Dose: 40 mg Documented by: [id number] Admin: 10/02/20 00:23 Dose: Not Given Documented by: [id number] Discontinued Medications Dexamethasone (Dexamethasone Sod Inj 10 Mg/Ml Vial) 6 mg IV NOW ONE Stop: 10/01/20 12:34 Last Admin: 10/01/20 13:09 Dose: 6 mg Documented by: [id number] Acetaminophen (Ofirmev) 1,000 mg in 100 mls @ 400 mls/hr IV NOW STA Stop: 10/01/20 12:47 Last Infusion: 10/01/20 13:25 Dose: 0 mls/hr Documented by: [id number] Admin: 10/01/20 13:09 Dose: 400 mls/hr Documented by: [id number] Sodium Chloride (Nss) 500 mls @ 999 mls/hr IV .Q31M ONE Stop: 10/01/20 14:10 Last Infusion: 10/01/20 14:43 Dose: 0 mls/hr Documented by: [id number] Admin: 10/01/20 14:05 Dose: 999 mls/hr Documented by: [id number] Sodium Chloride (Nss 1000ml) 500 mls @ 999 mls/hr IV .Q31M ONE Stop: 10/01/20 15:52 Last Infusion: 10/01/20 16:22 Dose: 0 mls/hr Documented by: [id number] Admin: 10/01/20 15:30 Dose: 999 mls/hr Documented by: [id number] Sodium Chloride (Nss 1000ml) 1,000 mls @ 70 mls/hr IV .[id number] ONE Stop: 10/02/20 09:15 Last Infusion: 10/02/20 10:10 Dose: 0 mls/hr Documented by: [id number] Admin: 10/01/20 19:30 Dose: 70 mls/hr Documented by: [id number] Critical Care Time I have personally spent greater than 30 minutes of critical care time in the direct management of this patient. This includes bedside care, interpretation of diagnostic studies, and testing, discussion with consultants, patient, and family members, and other required patient management activities. This 30 minutes is in excess of all separately billable procedures. Medical Decision Making Differential Diagnosis Infection, dehydration, metabolic abnormality, hypo/hyperglycemia, electrolyte disturbance, anemia, hypoxia, cardiac sources, intracerebral event, toxicologic, neurologic, as well as other pathologies. Medical Records Attestation: I reviewed the patient's medical records. Home Medications Current Medication List: was personally reviewed by ri Laboratory Data Attestation: I reviewed the patient's lab results. Result diagrams: 10/02/20 07:31 10/02/20 15:12 Lab Results 10/01/20 10/01/20 10/01/20 Range/Units 12:42 12:42 12:42 WBC (4.8-10.8) K/uL RBC (4.2-5.4) M/uL Hgb (12.0-16.0) g/dL Hct (37-47) % MCV (80-100) fL MCH (25-34) pg MCHC (32-36) g/dL RDW Std Deviation (36.4-46.3) fL RDW Coeff of Mis (11.5-14.5) % Plt Count (130-400) K/uL MPV (7.4-10.4) fL Immature Gran % (Auto) % Neut % (Auto) % Lymph % (Auto) % [place] % (Auto) % Eos % (Auto) % Baso % (Auto) % Neut # (Auto) (1.4-6.5) K/uL Lymph # (Auto) (1.2-3.4) K/uL [place] # (Auto) (0.11-0.59) K/uL Eos # (Auto) (0-0.5) K/uL Baso # (Auto) (0-0.2) K/uL Immature Gran # (Auto) (0.00-0.02) K/uL RBC Morphology ESR 60 H (0-21) mm/hr PT (9.0-12.0) Seconds INR (0.9-1.1) APTT (21.0-31.0) Seconds PTT Ratio Sodium 140 (136-145) mmol/L Potassium 4.5 (3.5-5.1) mmol/L Chloride 118 H (98-107) mmol/L Carbon Dioxide 15 L (21-32) mmol/L Anion Gap 7.0 (3-11) BUN 46 H (7-18) mg/dl Creatinine 2.60 H (0.6-1.2) mg/dl Est Cr Clr Drug Dosing 11.8 ml/min Est GFR ( Amer) 18.3 Est GFR (Non-Af Amer) 15.8 BUN/Creatinine Ratio 17.5 (10-20) Glucose 143 H (70-99) mg/dl Lactate (0.4-2.0) mmol/L Calcium 9.6 (8.5-10.1) mg/dl Magnesium 1.8 (1.8-2.4) mg/dl Ferritin 1900.2 H (8-388) ng/ml Total Bilirubin 0.2 (0.2-1) mg/dl AST 19 (15-37) U/L ALT 15 (12-78) U/L Alkaline Phosphatase 85 (45-117) U/L Lactate Dehydrogenase 193 (84-246) U/L Troponin I < 0.015 (0-0.045) ng/ml C-Reactive Protein 6.26 H (0-0.29) mg/dl Total Protein 7.6 (6.4-8.2) gm/dl Albumin 3.4 (3.4-5.0) gm/dl Globulin 4.2 H (2.5-4.0) gm/dl Albumin/Globulin Ratio 0.8 L (0.9-2) Procalcitonin (0-0.5) ng/ml COVID-19 Eval Order SARS-CoV-2, RNA, NAAT (NEGATIVE) Blood Type Antibody Screen 10/01/20 10/01/20 10/01/20 Range/Units 12:42 12:42 12:42 WBC 7.35 (4.8-10.8) K/uL RBC 2.96 L (4.2-5.4) M/uL Hgb 10.0 L (12.0-16.0) g/dL Hct 30.1 L (37-47) % MCV 101.7 H (80-100) fL MCH 33.8 (25-34) pg MCHC 33.2 (32-36) g/dL RDW Std Deviation 60.3 H (36.4-46.3) fL RDW Coeff of Mis 16.0 H (11.5-14.5) % Plt Count 300 (130-400) K/uL MPV 10.4 (7.4-10.4) fL Immature Gran % (Auto) 0.3 % Neut % (Auto) 84.2 % Lymph % (Auto) 10.2 % [place] % (Auto) 4.2 % Eos % (Auto) 1.0 % Baso % (Auto) 0.1 % Neut # (Auto) 6.19 (1.4-6.5) K/uL Lymph # (Auto) 0.75 L (1.2-3.4) K/uL [place] # (Auto) 0.31 (0.11-0.59) K/uL Eos # (Auto) 0.07 (0-0.5) K/uL Baso # (Auto) 0.01 (0-0.2) K/uL Immature Gran # (Auto) 0.02 (0.00-0.02) K/uL RBC Morphology Unremarkable ESR (0-21) mm/hr PT 10.3 (9.0-12.0) Seconds INR 1.0 (0.9-1.1) APTT 28.8 (21.0-31.0) Seconds PTT Ratio 1.0 Sodium (136-145) mmol/L Potassium (3.5-5.1) mmol/L Chloride (98-107) mmol/L Carbon Dioxide (21-32) mmol/L Anion Gap (3-11) BUN (7-18) mg/dl Creatinine (0.6-1.2) mg/dl Est Cr Clr Drug Dosing ml/min Est GFR ( Amer) Est GFR (Non-Af Amer) BUN/Creatinine Ratio (10-20) Glucose (70-99) mg/dl Lactate (0.4-2.0) mmol/L Calcium (8.5-10.1) mg/dl Magnesium (1.8-2.4) mg/dl Ferritin (8-388) ng/ml Total Bilirubin (0.2-1) mg/dl AST (15-37) U/L ALT (12-78) U/L Alkaline Phosphatase (45-117) U/L Lactate Dehydrogenase (84-246) U/L Troponin I (0-0.045) ng/ml C-Reactive Protein (0-0.29) mg/dl Total Protein (6.4-8.2) gm/dl Albumin (3.4-5.0) gm/dl Globulin (2.5-4.0) gm/dl Albumin/Globulin Ratio (0.9-2) Procalcitonin 0.12 (0-0.5) ng/ml COVID-19 Eval Order SARS-CoV-2, RNA, NAAT (NEGATIVE) Blood Type Antibody Screen 10/01/20 10/01/20 10/01/20 Range/Units 12:53 12:53 13:10 WBC (4.8-10.8) K/uL RBC (4.2-5.4) M/uL Hgb (12.0-16.0) g/dL Hct (37-47) % MCV (80-100) fL MCH (25-34) pg MCHC (32-36) g/dL RDW Std Deviation (36.4-46.3) fL RDW Coeff of Mis (11.5-14.5) % Plt Count (130-400) K/uL MPV (7.4-10.4) fL Immature Gran % (Auto) % Neut % (Auto) % Lymph % (Auto) % [place] % (Auto) % Eos % (Auto) % Baso % (Auto) % Neut # (Auto) (1.4-6.5) K/uL Lymph # (Auto) (1.2-3.4) K/uL [place] # (Auto) (0.11-0.59) K/uL Eos # (Auto) (0-0.5) K/uL Baso # (Auto) (0-0.2) K/uL Immature Gran # (Auto) (0.00-0.02) K/uL RBC Morphology ESR (0-21) mm/hr PT (9.0-12.0) Seconds INR (0.9-1.1) APTT (21.0-31.0) Seconds PTT Ratio Sodium (136-145) mmol/L Potassium (3.5-5.1) mmol/L Chloride (98-107) mmol/L Carbon Dioxide (21-32) mmol/L Anion Gap (3-11) BUN (7-18) mg/dl Creatinine (0.6-1.2) mg/dl Est Cr Clr Drug Dosing ml/min Est GFR ( Amer) Est GFR (Non-Af Amer) BUN/Creatinine Ratio (10-20) Glucose (70-99) mg/dl Lactate 1.8 (0.4-2.0) mmol/L Calcium (8.5-10.1) mg/dl Magnesium (1.8-2.4) mg/dl Ferritin (8-388) ng/ml Total Bilirubin (0.2-1) mg/dl AST (15-37) U/L ALT (12-78) U/L Alkaline Phosphatase (45-117) U/L Lactate Dehydrogenase (84-246) U/L Troponin I (0-0.045) ng/ml C-Reactive Protein (0-0.29) mg/dl Total Protein (6.4-8.2) gm/dl Albumin (3.4-5.0) gm/dl Globulin (2.5-4.0) gm/dl Albumin/Globulin Ratio (0.9-2) Procalcitonin (0-0.5) ng/ml COVID-19 [facility], [facility], NAAT (NEGATIVE) Blood Type O Positive Antibody Screen NEGATIVE 10/01/20 Range/Units 13:10 WBC (4.8-10.8) K/uL RBC (4.2-5.4) M/uL Hgb (12.0-16.0) g/dL Hct (37-47) % MCV (80-100) fL MCH (25-34) pg MCHC (32-36) g/dL RDW Std Deviation (36.4-46.3) fL RDW Coeff of Mis (11.5-14.5) % Plt Count (130-400) K/uL MPV (7.4-10.4) fL Immature Gran % (Auto) % Neut % (Auto) % Lymph % (Auto) % [place] % (Auto) % Eos % (Auto) % Baso % (Auto) % Neut # (Auto) (1.4-6.5) K/uL Lymph # (Auto) (1.2-3.4) K/uL [place] # (Auto) (0.11-0.59) K/uL Eos # (Auto) (0-0.5) K/uL Baso # (Auto) (0-0.2) K/uL Immature Gran # (Auto) (0.00-0.02) K/uL RBC Morphology ESR (0-21) mm/hr PT (9.0-12.0) Seconds INR (0.9-1.1) APTT (21.0-31.0) Seconds PTT Ratio Sodium (136-145) mmol/L Potassium (3.5-5.1) mmol/L Chloride (98-107) mmol/L Carbon Dioxide (21-32) mmol/L Anion Gap (3-11) BUN (7-18) mg/dl Creatinine (0.6-1.2) mg/dl Est Cr Clr Drug Dosing ml/min Est GFR ( Amer) Est GFR (Non-Af Amer) BUN/Creatinine Ratio (10-20) Glucose (70-99) mg/dl Lactate (0.4-2.0) mmol/L Calcium (8.5-10.1) mg/dl Magnesium (1.8-2.4) mg/dl Ferritin (8-388) ng/ml Total Bilirubin (0.2-1) mg/dl AST (15-37) U/L ALT (12-78) U/L Alkaline Phosphatase (45-117) U/L Lactate Dehydrogenase (84-246) U/L Troponin I (0-0.045) ng/ml C-Reactive Protein (0-0.29) mg/dl Total Protein (6.4-8.2) gm/dl Albumin (3.4-5.0) gm/dl Globulin (2.5-4.0) gm/dl Albumin/Globulin Ratio (0.9-2) Procalcitonin (0-0.5) ng/ml COVID-19 Eval Order SARS-CoV-2, RNA, NAAT POSITIVE A* (NEGATIVE) Blood Type Antibody Screen ECG Data Attestation: I personally reviewed and interpreted this ECG as follows: Indication: + altered mental status Rate (beats per minute): 75 Rhythm: + sinus rhythm ECG Intervals/blocks: + First degree AV block and + Normal QT-c (399) ECG [place]: + Normal ECG ST segments: no ST depression and no ST elevation Comparison ECG Date: from (09/11/2019) Change: no significant change MDM Narrative Patient was seen and evaluated as above in room A4. Review was performed of nursing notes and vital signs. I did review pertinent previous visits and patient history. After obtaining a thorough history and physical examination the above work up was performed. This is an 89-year-old female who test positive for coronavirus. In addition her creatinine is significantly bumped. Due to the coronavirus infection she was gently hydrated on IV fluids. She was started on Decadron. I did discuss the case with the hospitalist service who did agree to meet the patient. An order was placed for continuous cardiac monitoring. The monitor shows a rate of 66 with Normal Sinus rhythm. The patient was evaluated during a period of high volume and high acuity while the hospital was at overcapacity during the global COVID-19 pandemic, and that diagnosis was suspected/considered upon their initial presentation. Their evaluation, treatment and testing was consistent with current guidelines for patients who present with complaints or symptoms that may be related to COVID- 19. Impression & Plan Pneumonia due to COVID-19 virus, T[place]IL[place] (acute kidney injury) Discharge Plan Visit Data Chief Complaint: Weakness Stated Complaint: WEAKNESS, DIARRHEA, FATIGUE, DEHYDRATED ED Provider: Ministerio Mata Discharge Problem: Pneumonia due to COVID-19 virus, TENNILLE (acute kidney injury) Patient Disposition: Admitted As Inpatient Discharge Instructions Interventions: ED Discharge Assessment Last Done: 10/01/20 22:41
[2020-10-01 12:55] LABS: Hematocrit (blood only) 30.1 % (37-47); Mean Corpuscular Hemoglobin 33.8 pg (25-34); Mean Corpuscular Hgb Conc 33.2 g/dL (32-36); Mean Corpuscular Volume 101.7 fL (80-100); Mean Platelet Volume 10.4 fL (7.4-10.4); Platelet Count 300 K/uL (130-400); RDW Standard Deviation 60.3 fL (36.4-46.3); Red Blood Count 2.96 M/uL (4.2-5.4); White Blood Count 7.35 K/uL (4.8-10.8)
[2020-10-01 13:20] LABS: Alanine Aminotransferase 15 U/L (12-78); Albumin Level 3.4 gm/dl (3.4-5.0); Aspartate Aminotransferase 19 U/L (15-37); BUN Creatinine Ratio 17.5 (10-20); Blood Urea Nitrogen 46 mg/dl (7-18); C Reactive Protein 6.26 mg/dl (0-0.29); Calcium 9.6 mg/dl (8.5-10.1); Carbon Dioxide 15 mmol/L (21-32); Chloride 118 mmol/L (98-107); Creatinine Clr Calc Pharmacy 11.8 ml/min; Est GFR (African American) 18.3; Est GFR (Non-African American) 15.8; Glucose 143 mg/dl (70-99); Magnesium 1.8 mg/dl (1.8-2.4); Potassium 4.5 mmol/L (3.5-5.1); Sodium 140 mmol/L (136-145)
[2020-10-01 13:21] LABS: Partial Thromboplastin Time 28.8 Seconds (21.0-31.0); Prothrombin Time 10.3 Seconds (9.0-12.0)
--- NOTE | 2020-10-01 13:24 | XRay Report ---
SINGLE VIEW CHEST CLINICAL HISTORY: Sepsis. FINDINGS: An AP, portable, upright chest radiograph is compared to study dated 09/11/2019 and correla christiano with chest CT dated 02/04/2017. The examination is degraded by portable technique and patient rota tion. The cardiomediastinal silhouette is unremarkable noting atherosclerotic calcification of the th oracic aorta. There are hazy interstitial airspace opacities seen bilaterally, greatest in the left l ower lung. No large pleural effusion is identified. No pneumothorax is seen. The skeletal structures are osteopenic. The bony thorax is grossly intact. Degenerative change is noted in the shoulders and thoracic spine. IMPRESSION: There are hazy bilateral interstitial airspace opacities, greatest at the left lung base. This is consistent with an infectious/inflammatory pneumonitis. Clinical correlation will be require d and radiographic follow-up to resolution is recommended. ACT 112: Negative or not required by law. Electronically signed by: Dashawn Page M.D. 10/01/2020 1:22 PM
[2020-10-01 13:25] LABS: Albumin Globulin Ratio 0.8 (0.9-2); Alkaline Phosphatase 85 U/L (45-117); Bilirubin,Total 0.2 mg/dl (0.2-1); Ferritin 1900.2 ng/ml (8-388); Globulin 4.2 gm/dl (2.5-4.0); Total Protein 7.6 gm/dl (6.4-8.2); Troponin I < 0.015 ng/ml (0-0.045)
[2020-10-01 13:27] LABS: Basophils # (auto) 0.01 K/uL (0-0.2); Basophils % (auto) 0.1 %; Eosinophils # (auto) 0.07 K/uL (0-0.5); Immature Granulocytes # (auto) 0.02 K/uL (0.00-0.02); Immature Granulocytes % (auto) 0.3 %; Lymphocytes # (auto) 0.75 K/uL (1.2-3.4); Lymphocytes % (auto) 10.2 %; Monocytes # (auto) 0.31 K/uL (0.11-0.59); Monocytes % (auto) 4.2 %; Neutrophils # (auto) 6.19 K/uL (1.4-6.5); Neutrophils % (auto) 84.2 %; RBC Morphology Unremarkable
[2020-10-01] MEDS ORDERED: SODIUM CHLORIDE 0.9% 500 ML IV ONE (13:40)
[2020-10-01] MEDS ORDERED: SODIUM CHLORIDE 0.9% 1000ML 500 ML IV ONE (15:22)
--- NOTE | 2020-10-01 15:27 | History & Physical Report ---
Date of Service October 01, 2020 Assessment & Plan (1) Pneumonia due to COVID-19 virus: She was brought to the ED for diarrhea and poor appetite and weakness Mostly related to the acute illness due to covid 19 CXR showed hazy bilateral interstitial airspace opacities, greatest at the left lung base. Procalcitonin and WBC are normal Febrile on admission with Temp 38 C Received IVF and dexamethasone in the ER Pt saturated well on RA and no hypoxia noted at home or in the ER Will hold for any additional steroid for now, but if pt becomes hypoxia or requires oxygen will resume steroid Not a candidate for Remdesivir due to acute kidney failure with GFR under 20 Not a candidate for plasma convaslecent since oxygen saturation 97 on RA Case discussed with son about Plasma convaslecent if pt becomes hypoxia or requires oxygen, will be ok with it Will check inflammatory markers in am such as ESR, CRP, LDH and ferritin Will repeat procalcitonin in am Will hold on abx for now since procalcitonin and WBC are normal Follow up blood cx that was collected in the ER Weakness Confusion Son said that pt has been more confused/lethargy weak and difficulty to swallow pills Mostly related to acute illness CT head showed no hemorrhage, mass effect, or evidence of acute territorial ischemia by CT criteria. PT/OT eval Fall precaution TENNILLE on CKD stage 4 Mostly due to dehydration due to poor oral intake Creatinine on admission 2.6 , baseline creatinine 1.9 to 2.1 (Outpatient lab for 2009) Received IVF in the ER, will continue IVF maintenace Will hold Lisinopril Will avoid nephrotoxic agents Continue monitor BMP Dysphagia Seems to be related to dementia and acute illness Will consult speech therapy Aspiration precaution DM2 (diabetes mellitus, type 2): Not on any antidiabetic at home Will check Hba1c in am Continue monitor BS Hypothyroidism: Continue home levothyroxine 75mcg daily Will check TSH in am Hypotension Mostly due to dehydration Continue IVF Will hold Lisinopril Continue monitor BP Hypertension Hypotension on admission Will continue to hold antihypertensive for now and monitor BP Will resume metoprolol in am if BP stable History of paroxysmal atrial tachycardia: Rate controlled Will resume Metoprolol in am GERD (gastroesophageal reflux disease): Continue po ppi Gout: Continue allopurinol DVT prophylaxis: Will do hep subq instead of Lovenox in COVID 19 due to worsening renal function and low GFR CODE STATUS FULL code as per my discussion with son Glen Barrios requests update from provider, Phone number [phone] History of Present Illness Chief Complaint: Weakness/ Poor appetite Primary Care Provider: Jeff Good DO 89-year-old female with past medical history significant for type 2 diabetes, not on any medication, history of gout, history of benign neoplasm of adrenal gland, hyperlipidemia, hypothyroidism, hypertension, paroxysmal atrial tachy cardia, GERD, acoustic neuroma, Alzheimer disease, spinal stenosis, history of bladder cancer, major depression, generalized anxiety disorder, was brought to the ED by son to evaluate for dehydration due to poor appetite, diarrhea and weakness. History obtained from son over the phone since he is the handbag finisher and pt has dementia. Son said that since Saturday pt has been having diarrhea associated with poor oral intake. Pt has been drinking 1 to 2 boost and a slice of toast for the day. Son said that pt usually used a walker to ambulate but lately she has been very weak and requires a lot of help to stand up. Son said that pt has been lethargy and more confused from baseline. She has been having on and off fever mostly in the morning and has been taking Tylenol for the it that seems to help. He said that she was having some difficulty to swallow. He said that he used pudding to mix the pills that she can swallow them. Son said that his sister was recently diagnosed with covid 19 about 5 days ago and pt had contact with her daughter on 09/21. Son said that he has the similar symptoms with his mother and thought that was a viral gastroenteritis. Son said that pt has not had any respiratory symptoms, except her usual one an off dry cough usually from post nasal drip due to running nose from allergies. They both got testing for COVID 19 on 09/28 and waiting for the result. In the ER she was testing positive for COVID 19 and received IVF. Currently pt lying in bed with no distress, denies any chest pain, palpitation, dizziness and SOB. Allergies Allergy/AdvReac Type Severity Reaction Status Date / Time mirtazapine AdvReac Mild Increased Verified 10/01/20 13:46 Anxiety oxycodone AdvReac Mild GI SYMPTOMS Verified 10/01/20 13:46 morphine AdvReac Unknown NAUSEA Verified 10/01/20 13:46 Home Medications Medication Instructions Recorded Confirmed Type allopurinol 300 mg PO HS 03/14/19 10/01/20 History folic acid 1 mg PO QAM 03/14/19 10/01/20 History levothyroxine 75 mcg PO QAM 03/14/19 10/01/20 History lisinopril 5 mg PO QAM 03/14/19 10/01/20 History metoprolol succinate 50 mg PO QAM 03/14/19 10/01/20 History multivitamin 1 tab PO QAM 03/14/19 10/01/20 History omeprazole 40 mg PO BID 03/14/19 10/01/20 History cyanocobalamin (vitamin B-12) 0 mcg PO QAM 10/01/20 10/01/20 History [Vitamin B-12] melatonin 0 mg PO HS PRN 10/01/20 10/01/20 History Past Med/Surg History Medical History (Updated 10/01/20 @ 16:23 by Ida Seymour MD) 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 Dementia Diverticulitis Family History Other Family history non-contributory Social History Smoking Status: Former smoker Tobacco Type: Cigarettes Second Hand Exposure: No; Hx Alcohol Use: No Hx Substance Use: No Preferred Language: Vietnamese Communication Ability: Impaired Hearing Ability: Hard of Hearing Thread Clipper Required: No Beliefs That Will Affect Care: None marital status: / Current Living Situation: Family current occupational status: retired Feels Safe at Home: Yes Assistive Devices: Walker Review of Systems Review of Systems: All systems reviewed & are unremarkable except as noted in HPI & below Physical Exam Physical Exam: General- confused Head- atraumatic Eyes- PERRL, EOMI, ENT- oropharynx clear Neck- supple, no JVD Lungs- diminished BS Heart- regular rhythm; no murmur Abdomen- normal bowel sounds, soft, nontender Extremities- no calf tenderness Neuro- confused, PERRL, no dysarthria, move all 4 extremities Skin- warm & dry Results & Data Results & Data ([facility]) Vital Signs (Past 12 Hours) Vital Signs Temp Pulse Pulse Resp BP BP Pulse Ox 10/01/20 14:44 70 18 80/45 L 97 10/01/20 13:06 71 20 110/48 L 96 10/01/20 12:57 97 10/01/20 12:13 38 C H 90 18 161/97 H 96 Diagnostic Findings SINGLE VIEW CHEST CLINICAL HISTORY: Sepsis. FINDINGS: An AP, portable, upright chest radiograph is compared to study dated 09/11/2019 and correlated with chest CT dated 02/04/2017. The examination is degraded by portable technique and patient rotation. The cardiomediastinal silhouette is unremarkable noting atherosclerotic calcification of the thoracic aorta. There are hazy interstitial airspace opacities seen bilaterally, greatest in the left lower lung. No large pleural effusion is identified. No pneumothorax is seen. The skeletal structures are osteopenic. The bony thorax is grossly intact. Degenerative change is noted in the shoulders and thoracic spine. IMPRESSION: There are hazy bilateral interstitial airspace opacities, greatest at the left lung base. This is consistent with an infectious/inflammatory pneumonitis. Clinical correlation will be required and radiographic follow-up to resolution is recommended. ACT 112: Negative or not required by law. Electronically signed by: Dashawn Page M.D. 10/01/2020 1:22 PM Dictated: 10/01/20 1321Transcribed: 10/01/20 1321
--- NOTE | 2020-10-01 16:50 | CT Scan Report ---
CT SCAN OF THE BRAIN WITHOUT IV CONTRAST CLINICAL HISTORY: Change in mental status. Weakness. Lethargy. COMPARISON STUDY: CT of the brain dated 03/14/2019. TECHNIQUE: Unenhanced axial CT scan of the brain is performed from the vertex to the skull base. A do se lowering technique was utilized adhering to the principles of ALARA. CT DOSE: 537.48 mGy.cm FINDINGS: Brain parenchyma: There are age-related involutional changes noting mild subcortical and periventric ular microangiopathic change. There is no hemorrhage, mass effect, or evidence of acute territorial i schemia by CT criteria. Lee-white matter differentiation is preserved. No extra-axial fluid collecti on is seen. Ventricles, sulci, cisterns: Prominent secondary to involutional change. Intracranial vasculature: There is atherosclerotic calcification of the cavernous carotid arteries. Calvarium: Unremarkable. Sinuses and mastoids: The visualized paranasal sinuses are clear. The mastoid air cells are well pneu matized. Orbits: The bony orbits are grossly intact. There are bilateral ocular lens implants. IMPRESSION: There is no hemorrhage, mass effect, or evidence of acute territorial ischemia by CT crit jose luis. ACT 112: Negative or not required by law. Electronically signed by: Dashawn Page M.D. 10/01/2020 4:48 PM
[2020-10-01] MEDS ORDERED: SODIUM CHLORIDE 0.9% 1000ML 1,000 ML IV ONE (18:58)
[2020-10-01 20:37] LABS: Appearance Urine Cloudy (Clear); Bacteria Urine Automated 2+ (Negative); Bilirubin Urine Negative (Negative); Blood Urine Trace (Negative); Color Urine Yellow; Epithelial Cell Urine Auto >30 /lpf (0-5); Glucose Urine UA Negative (Negative); Ketones Urine Negative (Negative); Leukocyte Esterase Urine 3+ (Negative); Nitrite Urine Negative (Negative); Protein Urine 1+ (Negative); RBC Urine Automated 0-4 /hpf (0-4); Specific Gravity Urine 1.017 (1.000-1.030); Urobilinogen Urine Negative (Negative); WBC Urine Automated >30 /hpf (0-5)
[2020-10-01] MEDS: allopurinoL 300 MG TAB PO SCH (21:10)
[2020-10-01] MEDS: HEPARIN SOD 5,000 UNIT/0.5 ML VIAL SQ SCH (23:43)
[2020-10-02] MEDS ORDERED: INFLUENZA VACCINE HIGH DOSE 65+ 0.7 ML SYR IM ONE (00:10)
[2020-10-02] MEDS ORDERED: INFLUENZA ADMINISTRATION CHARGE ONE (00:10)
[2020-10-02] MEDS: PANTOprazole 40 MG TAB PO SCH ×3 (00:23→20:30)
[2020-10-02] MEDS ORDERED: LEVOTHYROXINE SODIUM 75 MCG TABLET PO SCH (06:30)
[2020-10-02 07:54] LABS: Hematocrit (blood only) 29.3 % (37-47); Hemoglobin 9.5 g/dL (12.0-16.0); Mean Corpuscular Hemoglobin 32.9 pg (25-34); Mean Corpuscular Hgb Conc 32.4 g/dL (32-36); Mean Corpuscular Volume 101.4 fL (80-100); Mean Platelet Volume 10.2 fL (7.4-10.4); Platelet Count 328 K/uL (130-400); RDW Coefficient of Variation 16.1 % (11.5-14.5); RDW Standard Deviation 59.3 fL (36.4-46.3); Red Blood Count 2.89 M/uL (4.2-5.4); White Blood Count 4.23 K/uL (4.8-10.8)
[2020-10-02] MEDS: CYANOCOBALAMIN 500 MCG TABLET (VITAMIN B-12) PO SCH (08:19)
[2020-10-02] MEDS: FOLIC ACID 1 MG TAB PO SCH (08:19)
[2020-10-02] MEDS: METOPROLOL SUCC 50MG EXT REL TAB PO SCH (08:19)
[2020-10-02] MEDS: HEPARIN SOD 5,000 UNIT/0.5 ML VIAL SQ SCH ×2 (08:19→20:30)
[2020-10-02] MEDS: MULTIVITAMIN TAB PO SCH (08:19)
[2020-10-02 08:24] LABS: Albumin Level 3.1 gm/dl (3.4-5.0); C Reactive Protein 5.62 mg/dl (0-0.29); Calcium 9.5 mg/dl (8.5-10.1); Creatinine Clr Calc Pharmacy 16.1 ml/min; Est GFR (African American) 26.6; Potassium 4.5 mmol/L (3.5-5.1)
[2020-10-02 08:35] LABS: Albumin Globulin Ratio 0.8 (0.9-2); Bilirubin,Total 0.3 mg/dl (0.2-1); Ferritin 1917.3 ng/ml (8-388); Thyroid Stimulating Hormone 0.268 uIu/ml (0.300-4.500); Total Protein 7.1 gm/dl (6.4-8.2)
[2020-10-02] MEDS: cefTRIAXone SODIUM 1,000 MG in DEXTROSE 5% 50 ML IV SCH (10:09)
[2020-10-02] MEDS: SODIUM BICARBONATE 8.4% 150 MEQ in DEXTROSE 5% 1,000 ML IV SCH (10:53)
--- NOTE | 2020-10-02 13:06 | Electrocardiogram Report ---
Test Reason : Blood Pressure : / mmHG Vent. Rate : 075 BPM Atrial Rate : 075 BPM P-R Int : 236 ms QRS Dur : 070 ms QT Int : 358 ms P-R-T Axes : 056 015 075 degrees QTc Int : 399 ms Sinus rhythm with 1st degree A-V block Otherwise normal ECG When compared with ECG of 11-SEP-2019 16:31, No significant change was found Confirmed by Neto Mijares ([id number]) on 10/02/2020 1:05:49 PM Referred By: REFERRED SELF Confirmed By:Avery Mijares
[2020-10-02 16:12] LABS: BUN Creatinine Ratio 20.4 (10-20); Calcium 9.5 mg/dl (8.5-10.1); Creatinine Clr Calc Pharmacy 16.2 ml/min; Est GFR (African American) 26.8; Est GFR (Non-African American) 23.1; Potassium 4.3 mmol/L (3.5-5.1)
--- NOTE | 2020-10-02 18:22 | Hospitalist Progress Note ---
Date of Service October 02, 2020 Assessment & Plan (1) Pneumonia due to COVID-19 virus: COVID-19 pneumonia Per admitting service notes She was brought to the ED for diarrhea and poor appetite and weakness Mostly related to the acute illness due to covid 19 CXR showed hazy bilateral interstitial airspace opacities, greatest at the left lung base. Procalcitonin and WBC are normal Febrile on admission with Temp 38 C Received IVF and dexamethasone in the ER Pt saturated well on RA and no hypoxia noted at home or in the ER Will hold for any additional steroid for now, but if pt becomes hypoxia or requires oxygen will resume steroid Not a candidate for Remdesivir due to acute kidney failure with GFR under 20 Not a candidate for plasma convaslecent since oxygen saturation 97 on RA Patient remains stable overall Still saturating more than 94% on room air Diarrhea improving Continue to monitor closely Acute renal failure on CKD stage 4 Secondary to prerenal etiology, secondary to diarrhea from COVID-19 infection Creatinine on admission 2.6 , baseline creatinine 1.9 to 2.1 (Outpatient lab for 2009) Given IV fluids, lisinopril held Creatinine back to baseline at 1.9 but bicarb is 14, bicarb drip started Monitor BMP closely Weakness , Confusion Mostly related to acute illness CT head showed no hemorrhage, mass effect, or evidence of acute territorial ischemia by CT criteria. PT and OT evaluation ordered Dysphagia Seems to be related to dementia and acute illness speech therapy Aspiration precaution DM2 (diabetes mellitus, type 2): Not on any antidiabetic at home A1c pending Continue monitor BS Hypothyroidism: TSH low, free T4 high We will need to reduce levothyroxine from 75 to 50 mcg daily Repeat thyroid function test as an outpatient Hypotension Mostly due to dehydration Continue IVF hold Lisinopril Hypertension Hold lisinopril, resume metoprolol History of paroxysmal atrial tachycardia: Rate controlled resume Metoprolol GERD (gastroesophageal reflux disease): Continue po ppi Gout: Continue allopurinol DVT prophylaxis: Will do hep subq instead of Lovenox in COVID 19 due to worsening renal function and low GFR CODE STATUS FULL code as per my discussion with son Disposition Pending Lives with son at home PT and OT evaluation Admission and Anticipated Discharge Date Admission Date: October 01, 2020 Subjective Follow-up for COVID-19 pneumonia, acute renal failure, dehydration Seen resting in bed, comfortable, not in distress, in good spirits Pleasantly confused Denies shortness of breath, cough, chest pain Reports mild generalized abdominal discomfort but improving, no nausea No diarrhea noted this afternoon Tolerating diet well No other symptoms Review of Systems Review of Systems: All systems reviewed & are unremarkable except as noted in Subjective Physical Exam Physical Exam: General- oriented x 0, not in distress, speaks in sentences with no effort or accessory muscle use Head- atraumatic Eyes- PERRL, EOMI, anicteric ENT- oropharynx clear Neck- supple, no JVD, no adenopathy, no thyromegaly; carotids +2/2, no bruits appreciated Lungs-mild rales at the bases, no wheezing, good air entry bilaterally Heart- normal rate, regular rhythm; no murmur, no gallop, no rub appreciated Abdomen- normal bowel sounds, nondistended, soft, nontender, no masses or hepatosplenomegaly Extremities- no pretibial edema, no calf tenderness; peripheral pulses intact Neuro- alert, oriented x 0; pleasantly confused, CN 2-12 grossly intact; motor 5/5 bilaterally;sensation 100% on all extremities; no other gross focal neurologic deficits Skin- warm & dry Results & Data Results & Data ([facility]) Vital Signs (Past 12 Hours) Vital Signs Temp Pulse Pulse Resp BP Pulse Ox 10/02/20 15:43 36.3 C L 66 18 116/60 94 10/02/20 15:00 68 10/02/20 11:05 36.5 C 72 20 167/55 H 99 10/02/20 08:00 64 10/02/20 07:36 36.3 C L 64 16 133/53 L 99 Laboratory Results Laboratory Results - last 24 hr 10/01/20 10/02/20 10/02/20 20:26 07:21 07:21 WBC RBC Hgb Hct MCV MCH MCHC RDW Std Deviation RDW Coeff of Mis Plt Count MPV ESR Sodium Potassium Chloride Carbon Dioxide Anion Gap BUN Creatinine Est Cr Clr Drug Dosing Est GFR ( Amer) Est GFR (Non-Af Amer) BUN/Creatinine Ratio Glucose Estimat Average Glucose Hemoglobin A1c Calcium Ferritin Total Bilirubin AST ALT Alkaline Phosphatase Lactate Dehydrogenase C-Reactive Protein Total Protein Albumin Globulin Albumin/Globulin Ratio Procalcitonin 0.08 TSH Free T4 1.67 H Urine Color Yellow Urine Appearance Cloudy A Urine pH 5.0 Ur Specific [place] 1.017 Urine Protein 1+ H Urine Glucose (UA) Negative Urine Ketones Negative Urine Blood Trace H Urine Nitrite Negative Urine Bilirubin Negative Urine Urobilinogen Negative Ur Leukocyte Esterase 3+ H Urine WBC (Auto) >30 H Urine RBC (Auto) 0-4 U Hyaline Cast (Auto) 1-5 U Epithel Cells (Auto) >30 H Urine Bacteria (Auto) 2+ H 10/02/20 10/02/20 10/02/20 07:31 07:31 07:31 WBC 4.23 L RBC 2.89 L Hgb 9.5 L Hct 29.3 L MCV 101.4 H MCH 32.9 MCHC 32.4 RDW Std Deviation 59.3 H RDW Coeff of Mis 16.1 H Plt Count 328 MPV 10.2 ESR 71 H Sodium 142 Potassium 4.5 Chloride 119 H Carbon Dioxide 14 L Anion Gap 9.0 BUN 42 H Creatinine 1.91 H D Est Cr Clr Drug Dosing 16.1 Est GFR ( Amer) 26.6 Est GFR (Non-Af Amer) 23.0 BUN/Creatinine Ratio 22.0 H Glucose 124 H Estimat Average Glucose Hemoglobin A1c Calcium 9.5 Ferritin 1917.3 H Total Bilirubin 0.3 AST 19 ALT 13 Alkaline Phosphatase 77 Lactate Dehydrogenase C-Reactive Protein 5.62 H Total Protein 7.1 Albumin 3.1 L Globulin 4.0 Albumin/Globulin Ratio 0.8 L Procalcitonin TSH 0.268 L Free T4 Urine Color Urine Appearance Urine pH Ur Specific [place] Urine Protein Urine Glucose (UA) Urine Ketones Urine Blood Urine Nitrite Urine Bilirubin Urine Urobilinogen Ur Leukocyte Esterase Urine WBC (Auto) Urine RBC (Auto) U Hyaline Cast (Auto) U Epithel Cells (Auto) Urine Bacteria (Auto) 10/02/20 10/02/20 10/02/20 07:31 07:31 15:12 WBC RBC Hgb Hct MCV MCH MCHC RDW Std Deviation RDW Coeff of Mis Plt Count MPV ESR Sodium 139 Potassium 4.3 Chloride 111 H Carbon Dioxide 16 L Anion Gap 12.0 H BUN 39 H Creatinine 1.90 H Est Cr Clr Drug Dosing 16.2 Est GFR ( Amer) 26.8 Est GFR (Non-Af Amer) 23.1 BUN/Creatinine Ratio 20.4 H Glucose 139 H Estimat Average Glucose Pending Hemoglobin A1c Pending Calcium 9.5 Ferritin Total Bilirubin AST ALT Alkaline Phosphatase Lactate Dehydrogenase 187 C-Reactive Protein Total Protein Albumin Globulin Albumin/Globulin Ratio Procalcitonin TSH Free T4 Urine Color Urine Appearance Urine pH Ur Specific [place] Urine Protein Urine Glucose (UA) Urine Ketones Urine Blood Urine Nitrite Urine Bilirubin Urine Urobilinogen Ur Leukocyte Esterase Urine WBC (Auto) Urine RBC (Auto) U Hyaline Cast (Auto) U Epithel Cells (Auto) Urine Bacteria (Auto)
[2020-10-02] MEDS: allopurinoL 300 MG TAB PO SCH (20:30)
[2020-10-03] MEDS: SODIUM BICARBONATE 8.4% 150 MEQ in DEXTROSE 5% 1,000 ML IV SCH (00:46)
[2020-10-03] MEDS ORDERED: ACETAMINOPHEN 1000 MG/100 ML IV IV ONE (03:16)
[2020-10-03] MEDS ORDERED: METOPROLOL TARTRATE 1 MG/ML VIAL IV STA (03:16)
[2020-10-03] MEDS ORDERED: MAGNESIUM SULFATE / D5W 1 GM/100 ML BAG IV ONE (03:17)
--- NOTE | 2020-10-03 03:19 | Communication Note ---
Date of Service: October 03, 2020 Patient noted to be tachycardic in a.m. as per RN. Patient unable to verbalize complaints as per RN. Low-grade temperature elevation. AP Tachycardia Temperature elevation Abnormal TFTs (low TSH, elevated free T4) IV beta-harpreet 1 dose now (patient takes metoprolol in a.m.) Antipyretic Decrease home levothyroxine dose from 75 mcg to 50 mcg daily for now. Recheck outpatient TSH next month. Will relay to AM provider.
[2020-10-03 04:07] LABS: Base Excess VBG -1.3 mEq/L; Oxygen Saturation VBG 75.5 %; pH VBG 7.48 (7.36-7.41)
[2020-10-03 04:09] LABS: BUN Creatinine Ratio 21.2 (10-20); Calcium 9.4 mg/dl (8.5-10.1); Creatinine Clr Calc Pharmacy 23.3 ml/min; Est GFR (African American) 41.6; Est GFR (Non-African American) 35.9; Magnesium 1.7 mg/dl (1.8-2.4); Potassium 3.8 mmol/L (3.5-5.1)
[2020-10-03 07:37] LABS: Estimated Average Glucose 137 mg/dl; Hemoglobin A1C 6.4 % (4.5-5.6)
--- NOTE | 2020-10-03 08:45 | XRay Report ---
XR chest 1V portable HISTORY: 89 years-old Female tachypnea COMPARISON: Chest radiograph 10/01/2020 TECHNIQUE: Supine AP view of the chest FINDINGS: Cardiomediastinal and hilar silhouettes are within normal limits. Calcified plaque of the thoracic ao rta. No pneumothorax. Unchanged bilateral reticular opacities with ill-defined left greater than righ t bibasilar airspace densities, slightly progressed within the left lung base. Degenerative changes o f the shoulders and spine. IMPRESSION: Bilateral pulmonary opacities are redemonstrated, slightly progressed within the left carin g base again suggestive of multifocal pneumonia. ACT 112: Negative or not required by law. The above report was generated using voice recognition software. It may contain grammatical, syntax o r spelling errors. Electronically signed by: Herve Hastings M.D. 10/03/2020 8:44 AM
[2020-10-03] MEDS: cefTRIAXone SODIUM 1,000 MG in DEXTROSE 5% 50 ML IV SCH (10:02)
[2020-10-03] MEDS: FOLIC ACID 1 MG TAB PO SCH (10:03)
[2020-10-03] MEDS: HEPARIN SOD 5,000 UNIT/0.5 ML VIAL SQ SCH ×2 (10:03→21:12)
[2020-10-03] MEDS: PANTOprazole 40 MG TAB PO SCH ×2 (10:04→21:12)
[2020-10-03] MEDS: MULTIVITAMIN TAB PO SCH (10:04)
[2020-10-03] MEDS: METOPROLOL SUCC 50MG EXT REL TAB PO SCH (10:04)
[2020-10-03] MEDS: CYANOCOBALAMIN 500 MCG TABLET (VITAMIN B-12) PO SCH (10:05)
[2020-10-03] MEDS: SODIUM CHLORIDE 0.9% 1000ML 1,000 ML IV SCH (13:34)
[2020-10-03] MEDS: MAGNESIUM OXIDE 400 MG TAB PO SCH ×2 (13:34→21:12)
[2020-10-03] MEDS: ACETAMINOPHEN 325 MG TAB PO PRN (15:47)
--- NOTE | 2020-10-03 17:43 | Hospitalist Progress Note ---
Date of Service October 03, 2020 Assessment & Plan (1) Pneumonia due to COVID-19 virus: COVID-19 pneumonia Per admitting service notes She was brought to the ED for diarrhea and poor appetite and weakness Mostly related to the acute illness due to covid 19 CXR showed hazy bilateral interstitial airspace opacities, greatest at the left lung base. Procalcitonin and WBC are normal Febrile on admission with Temp 38 C Received IVF and dexamethasone in the ER Pt saturated well on RA and no hypoxia noted at home or in the ER Will hold for any additional steroid for now, but if pt becomes hypoxia or requires oxygen will resume steroid Not a candidate for Remdesivir due to acute kidney failure with GFR under 20 Not a candidate for plasma convaslecent since oxygen saturation 97 on RA Remains stable Still saturating more than 94% on room air; 92% this afternoon, will continue to monitor No diarrhea Continue to monitor closely Acute renal failure on CKD stage 4 Secondary to prerenal etiology, secondary to diarrhea from COVID-19 infection Creatinine on admission 2.6 , baseline creatinine 1.9 to 2.1 (Outpatient lab for 2009) Given IV fluids, lisinopril held Creatinine back to baseline at 1.9 bicarb is 14, bicarb drip started--> bicarb normalized Continue IV NSS Weakness , Confusion Mostly related to acute illness CT head showed no hemorrhage, mass effect, or evidence of acute territorial ischemia by CT criteria. PT and OT evaluation ordered Dysphagia Seems to be related to dementia and acute illness speech therapy Aspiration precaution DM2 (diabetes mellitus, type 2): Not on any antidiabetic at home A1c pending Continue monitor BS Hypothyroidism: TSH low, free T4 high We will need to reduce levothyroxine from 75 to 50 mcg daily Repeat thyroid function test as an outpatient Hypotension Mostly due to dehydration Continue IVF hold Lisinopril Hypertension Hold lisinopril, resume metoprolol History of paroxysmal atrial tachycardia: Rate controlled resume Metoprolol GERD (gastroesophageal reflux disease): Continue po ppi Gout: Continue allopurinol DVT prophylaxis: Will do hep subq instead of Lovenox in COVID 19 due to worsening renal function and low GFR CODE STATUS FULL code as per my discussion with son Disposition Pending Lives with son at home PT and OT evaluation Admission and Anticipated Discharge Date Admission Date: October 01, 2020 Subjective Follow-up for Covid pneumonia, etc. Seen resting in bed, sleeping, easily awakened but goes back to sleep again Per staff patient has been somewhat uncooperative today Appetite is poor No signs of acute distress, no signs of pain No other signs or symptoms noted Review of Systems Review of Systems: All systems reviewed & are unremarkable except as noted in Subjective Physical Exam Physical Exam: General- oriented x 0, not in distress, breathing with no effort or accessory muscle use Eyes- anicteric Neck- no JVD Lungs- clear breath sounds bilaterally, no rales/wheezes Heart- normal rate, regular rhythm; no murmurs Abdomen- normal bowel sounds, nondistended, soft, nontender Extremities- no pretibial edema, no calf tenderness Neuro-sleeping but easily awakened, oriented x 0; no new gross focal neurologic deficits Skin- warm & dry Results & Data Results & Data ([facility]) Vital Signs (Past 12 Hours) Vital Signs Temp Pulse Pulse Resp BP Pulse Ox 10/03/20 16:31 86 16 92 10/03/20 16:00 106 H 10/03/20 15:21 37.0 C 104 H 20 139/95 92 10/03/20 11:25 37.0 C 95 H 17 138/64 95 10/03/20 08:26 85 10/03/20 07:32 36.6 C 92 H 19 106/65 98 Laboratory Results Laboratory Results - last 24 hr 10/02/20 10/03/20 10/03/20 07:31 03:29 03:29 VBG pH 7.48 H VBG pCO2 30 L VBG pO2 37 VBG HCO3 21 VBG O2 Saturation 75.5 VBG Base Excess -1.3 Barometric Pressure 730.9 Sodium 139 Potassium 3.8 Chloride 108 H Carbon Dioxide 21 Anion Gap 10.0 BUN 28 H Creatinine 1.32 H D Est Cr Clr Drug Dosing 23.3 Est GFR ( Amer) 41.6 Est GFR (Non-Af Amer) 35.9 BUN/Creatinine Ratio 21.2 H Glucose 176 H Estimat Average Glucose 137 Hemoglobin A1c 6.4 H Calcium 9.4 Magnesium 1.7 L
[2020-10-03] MEDS: allopurinoL 300 MG TAB PO SCH (21:12)
[2020-10-04] MEDS: SODIUM CHLORIDE 0.9% 1000ML 1,000 ML IV SCH (05:46)
[2020-10-04] MEDS: ACETAMINOPHEN 325 MG TAB PO PRN (06:14)
[2020-10-04] MEDS: cefTRIAXone SODIUM 1,000 MG in DEXTROSE 5% 50 ML IV SCH (10:18)
[2020-10-04] MEDS: PANTOprazole 40 MG TAB PO SCH ×2 (10:18→21:11)
[2020-10-04] MEDS: MULTIVITAMIN TAB PO SCH (10:18)
[2020-10-04] MEDS: FOLIC ACID 1 MG TAB PO SCH (10:18)
[2020-10-04] MEDS: CYANOCOBALAMIN 500 MCG TABLET (VITAMIN B-12) PO SCH (10:18)
[2020-10-04] MEDS: METOPROLOL SUCC 50MG EXT REL TAB PO SCH (10:18)
[2020-10-04] MEDS: HEPARIN SOD 5,000 UNIT/0.5 ML VIAL SQ SCH ×2 (10:18→21:10)
[2020-10-04] MEDS: MAGNESIUM OXIDE 400 MG TAB PO SCH ×2 (10:18→21:12)
[2020-10-04] MEDS: DEXAMETHASONE SOD PHOSPHATE 6 MG in SYRINGE 0 ML IV SCH (10:23)
[2020-10-04 10:41] LABS: Basophils # (auto) 0.01 K/uL (0-0.2); Basophils % (auto) 0.2 %; Eosinophils # (auto) 0.02 K/uL (0-0.5); Eosinophils % (auto) 0.3 %; Hematocrit (blood only) 27.1 % (37-47); Immature Granulocytes # (auto) 0.03 K/uL (0.00-0.02); Immature Granulocytes % (auto) 0.5 %; Lymphocytes # (auto) 0.52 K/uL (1.2-3.4); Lymphocytes % (auto) 8.5 %; Mean Corpuscular Hemoglobin 33.1 pg (25-34); Mean Corpuscular Hgb Conc 33.2 g/dL (32-36); Mean Corpuscular Volume 99.6 fL (80-100); Mean Platelet Volume 10.6 fL (7.4-10.4); Monocytes # (auto) 0.22 K/uL (0.11-0.59); Monocytes % (auto) 3.6 %; Neutrophils # (auto) 5.32 K/uL (1.4-6.5); Neutrophils % (auto) 86.9 %; Platelet Count 339 K/uL (130-400); RDW Coefficient of Variation 15.4 % (11.5-14.5); RDW Standard Deviation 56.3 fL (36.4-46.3); Red Blood Count 2.72 M/uL (4.2-5.4); White Blood Count 6.12 K/uL (4.8-10.8)
[2020-10-04 11:12] LABS: Albumin Globulin Ratio 0.7 (0.9-2); Albumin Level 2.5 gm/dl (3.4-5.0); BUN Creatinine Ratio 14.6 (10-20); Bilirubin,Total 0.2 mg/dl (0.2-1); Calcium 8.8 mg/dl (8.5-10.1); Creatinine Clr Calc Pharmacy 26.3 ml/min; Est GFR (African American) 48.2; Est GFR (Non-African American) 41.6; Globulin 3.8 gm/dl (2.5-4.0); Magnesium 1.9 mg/dl (1.8-2.4); Potassium 3.4 mmol/L (3.5-5.1); Total Protein 6.3 gm/dl (6.4-8.2)
--- NOTE | 2020-10-04 12:03 | XRay Report ---
XR chest 1V portable CLINICAL HISTORY: FF UP COVID PNEUMONIA, HYPOXIA COMPARISON STUDY: 10/03/2020 FINDINGS: The cardiac and mediastinal contours remain stable. There are multifocal airspace opacities consistent with a multifocal pneumonia. The findings remain relatively similar to the preceding stud y.[ IMPRESSION: Persistent multifocal airspace opacities consistent with a multifocal pneumonia. ACT 112: Negative or not required by law. Electronically signed by: Ankur Chu M.D. 10/04/2020 12:01 PM
[2020-10-04] MEDS ORDERED: ONDANSETRON INJ 2 MG/ML 2 ML VIAL IV PRN (12:28)
--- NOTE | 2020-10-04 17:13 | CT Scan Report ---
CT SCAN OF THE ABDOMEN AND PELVIS WITHOUT IV CONTRAST CLINICAL HISTORY: Lower abdominal pain. Urinary tract infection. COMPARISON STUDY: Abdominal CT dated 09/11/2019. TECHNIQUE: CT scan of the abdomen and pelvis is performed from the lung bases to the proximal femora. Images are reviewed in the axial, sagittal, and coronal planes. IV contrast was not administered for this examination. A dose lowering technique was utilized adhering to the principles of ALARA. CT DOSE: 350.46 mGycm FINDINGS: Lung bases: The heart is top normal in size and without pericardial effusion. There are coronary denise ry calcifications. A small hiatal hernia is noted. Patchy groundglass consolidation is seen throughou t both lung bases. Trace pleural effusion is seen in the right. Liver: The unenhanced liver is normal in size, contour, and attenuation. There is no intrahepatic violeta iary ductal dilatation. Gallbladder: Surgically absent. Spleen: Normal in size and attenuation. There is an 8 mm peripherally calcified splenic artery aneury sm. Pancreas: The unenhanced pancreas is atrophic and grossly unremarkable. Adrenal glands: Bilateral adrenal adenomas measure up to 1.8 cm. Kidneys: The unenhanced kidneys demonstrate cortical atrophy and are without hydronephrosis. Bilatera l nonobstructing renal calculi measure up to 8 mm. No ureteral stone is seen. There a 2.7 cm cyst is noted in the interpolar right kidney. A retroaortic left renal vein is incidentally noted. Abdominal vasculature: The abdominal aorta is normal in course and caliber noting advanced atheroscle rotic calcification. Bowel: There is moderate colonic diverticulosis without CT evidence of acute diverticulitis. No bowel obstruction is seen. The appendix is not identified. Peritoneum: There is no intraperitoneal free air or abdominal ascites. There is a small fat-containin g umbilical hernia. Lymphadenopathy: None. Pelvic viscera: The bladder is distended but otherwise normal in appearance. The uterus is surgically absent. No adnexal lesion is seen. Numerous phleboliths are observed in the pelvis. There are bilate ral fat-containing inguinal hernias. Skeletal structures: The skeletal structures are osteopenic. There is moderate to advanced lumbosacra l spondylosis. An 11 mm bone island is noted in the right acetabulum. No lytic or blastic lesions are seen. IMPRESSION: 1. Patchy groundglass consolidation is seen at both lung bases, typical for an infectious pneumonitis . Radiographic follow-up to resolution is recommended. 2. The bladder is significantly distended but otherwise normal in appearance. 3. Bilateral nephrolithiasis. 4. Moderate colonic diverticulosis without CT evidence of acute diverticulitis. 5. Additional findings as above. ACT 112: Negative or not required by law. Electronically signed by: Dashawn Page M.D. 10/04/2020 5:11 PM
[2020-10-04] MEDS ORDERED: REMDESIVIR 200 MG in SODIUM CHLORIDE 0.9% 210 ML IV STA (19:03)
--- NOTE | 2020-10-04 19:08 | Hospitalist Progress Note ---
Date of Service October 04, 2020 Assessment & Plan (1) Pneumonia due to COVID-19 virus: COVID-19 pneumonia Per admitting service notes She was brought to the ED for diarrhea and poor appetite and weakness Mostly related to the acute illness due to covid 19 CXR showed hazy bilateral interstitial airspace opacities, greatest at the left lung base. Procalcitonin and WBC are normal Febrile on admission with Temp 38 C Received IVF and dexamethasone in the ER Pt saturated well on RA and no hypoxia noted at home or in the ER Will hold for any additional steroid for now, but if pt becomes hypoxia or requires oxygen will resume steroid Not a candidate for Remdesivir due to acute kidney failure with GFR under 20 Not a candidate for plasma convaslecent since oxygen saturation 97 on RA Patient was saturating well until today oxygen saturations noted to be 91% on room air Remdesivir and Decadron day #1 started Discussed with patient's son over the phone, he still wants some time to decide regarding convalescent plasma Continue incentive spirometry Heparin subcu for DVT prophylaxis 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 PT and OT evaluation ordered Dysphagia Seems to be related to dementia and acute illness speech therapy: Easy to chew diet, aspiration precautions DM2 (diabetes mellitus, type 2): Not on any antidiabetic at home A1c 6.4 Continue monitor BS Hypothyroidism: TSH low, free T4 high will need to reduce levothyroxine from 75 to 50 mcg daily Repeat thyroid function test as an outpatient Hypotension Mostly due to dehydration Continue IVF hold Lisinopril Hypertension Resume lisinopril, resume metoprolol History of paroxysmal atrial tachycardia: Rate controlled resume Metoprolol GERD (gastroesophageal reflux disease): Continue po ppi Gout: Continue allopurinol DVT prophylaxis: Will do [facility] due to worsening renal function and low GFR CODE STATUS FULL code as per my discussion with son Disposition Pending Lives with son at home PT and OT evaluation Admission and Anticipated Discharge Date Admission Date: October 01, 2020 Subjective Follow-up for Covid pneumonia, etc. Noted that O2 saturation have decreased, this morning was 91% on room Seen resting in bed, on oxygen mask at 2 L More awake than yesterday, conversant Reports lower extremity muscle pains Denies shortness of breath, chest pain, cough, abdominal pain, nausea vomiting Appetite poor per direct care staffer No other symptom Review of Systems Review of Systems: All systems reviewed & are unremarkable except as noted in Subjective Physical Exam Physical Exam: General- oriented x 1, not in distress, speaks in sentences with no effort or accessory muscle use Eyes- anicteric Neck- no JVD Lungs-mild rhonchi bilateral bases, no wheezing, good air entry bilaterally Heart- normal rate, regular rhythm; no murmurs Abdomen- normal bowel sounds, moderate tenderness at the suprapubic area, soft, nontender Extremities- no pretibial edema, no calf tenderness Neuro- alert, oriented x 1; no new gross focal neurologic deficits Skin- warm & dry Results & Data Results & Data ([facility]) Vital Signs (Past 12 Hours) Vital Signs Temp Pulse Resp BP Pulse Ox 10/04/20 15:54 36.7 C 90 18 170/83 H 98 10/04/20 15:22 99 10/04/20 11:49 36.7 C 110 H 20 156/79 H 90 10/04/20 07:40 36.6 C 116 H 18 128/76 91 Laboratory Results Laboratory Results - last 24 hr 10/04/20 10/04/20 10:11 10:11 WBC 6.12 RBC 2.72 L Hgb 9.0 L Hct 27.1 L MCV 99.6 MCH 33.1 MCHC 33.2 RDW Std Deviation 56.3 H RDW Coeff of Mis 15.4 H Plt Count 339 MPV 10.6 H Immature Gran % (Auto) 0.5 Neut % (Auto) 86.9 Lymph % (Auto) 8.5 Hudson % (Auto) 3.6 Eos % (Auto) 0.3 Baso % (Auto) 0.2 Neut # (Auto) 5.32 Lymph # (Auto) 0.52 L Hudson # (Auto) 0.22 Eos # (Auto) 0.02 Baso # (Auto) 0.01 Immature Gran # (Auto) 0.03 H Sodium 139 Potassium 3.4 L Chloride 109 H Carbon Dioxide 22 Anion Gap 9.0 BUN 17 Creatinine 1.17 Est Cr Clr Drug Dosing 26.3 Est GFR ( Amer) 48.2 Est GFR (Non-Af Amer) 41.6 BUN/Creatinine Ratio 14.6 Glucose 212 H Calcium 8.8 Magnesium 1.9 Total Bilirubin 0.2 AST 43 H ALT 18 Alkaline Phosphatase 59 Total Protein 6.3 L Albumin 2.5 L Globulin 3.8 Albumin/Globulin Ratio 0.7 L
[2020-10-04] MEDS: POTASSIUM CHLORIDE PWD 20 MEQ PACK PO SCH (20:03)
[2020-10-04] MEDS: allopurinoL 300 MG TAB PO SCH (21:11)
[2020-10-04] MEDS: SODIUM CHLORIDE 0.9% 10ML FLUSH IV SCH (22:08)
[2020-10-05] MEDS: ACETAMINOPHEN 325 MG TAB PO PRN (00:10)
[2020-10-05] MEDS: DEXAMETHASONE SOD PHOSPHATE 6 MG in SYRINGE 0 ML IV SCH (08:39)
[2020-10-05] MEDS: PANTOprazole 40 MG TAB PO SCH ×2 (08:42→20:37)
[2020-10-05] MEDS: CYANOCOBALAMIN 500 MCG TABLET (VITAMIN B-12) PO SCH (08:43)
[2020-10-05] MEDS: MAGNESIUM OXIDE 400 MG TAB PO SCH ×2 (08:43→20:36)
[2020-10-05] MEDS: METOPROLOL SUCC 50MG EXT REL TAB PO SCH (08:43)
[2020-10-05] MEDS: FOLIC ACID 1 MG TAB PO SCH (08:43)
[2020-10-05] MEDS: HEPARIN SOD 5,000 UNIT/0.5 ML VIAL SQ SCH ×2 (08:44→20:35)
[2020-10-05] MEDS: MULTIVITAMIN TAB PO SCH (08:44)
[2020-10-05] MEDS: POTASSIUM CHLORIDE PWD 20 MEQ PACK PO SCH (08:47)
[2020-10-05] MEDS: cefTRIAXone SODIUM 1,000 MG in DEXTROSE 5% 50 ML IV SCH (09:00)
--- NOTE | 2020-10-05 16:22 | Communication Note ---
Date of Service: October 05, 2020 Attending note: 89-year-old female admitted with COVID-19 pneumonia, respiratory status gradually improved/stable On 2 L oxygen via nasal cannula SPO2 98%, patient was not on home O2 in the past Will need possibly to step test to assess for home O2 requirement. Discharge planning: Patient lives with her son Denis, Physical therapy notes reviewed for today 10/05/2020: Patient is maximum assist to sit at edge of the bed, unable to stand up, take steps Very deconditioned, Recommends skilled rehab Patient son was hesitant for patient to go to skilled rehab, Was hoping that with family support, with home health and home physical therapy- hoping to provide the care that patient needs. Understands that patient is significantly declined from her previous baseline- was able to walk independently, go to the bathroom by herself, needed occasional help in ADLs Son wants to discuss the options with his other siblings. He will discuss with case management tomorrow regarding the options of going to skilled rehab versus returning home with services. Patient's current plan of care discussed with patient's son in detail, all questions answered Sonia Hernandez MD
[2020-10-05] MEDS: REMDESIVIR 100 MG in SODIUM CHLORIDE 0.9% 230 ML IV SCH (20:30)
[2020-10-05] MEDS: allopurinoL 300 MG TAB PO SCH (20:36)
[2020-10-05] MEDS: SODIUM CHLORIDE 0.9% 10ML FLUSH IV SCH (21:56)
[2020-10-06] MEDS: cefTRIAXone SODIUM 1,000 MG in DEXTROSE 5% 50 ML IV SCH (08:11)
[2020-10-06] MEDS: ACETAMINOPHEN 325 MG TAB PO PRN ×2 (08:11→23:39)
[2020-10-06] MEDS: CYANOCOBALAMIN 500 MCG TABLET (VITAMIN B-12) PO SCH (08:12)
[2020-10-06] MEDS: PANTOprazole 40 MG TAB PO SCH ×2 (08:12→20:08)
[2020-10-06] MEDS: METOPROLOL SUCC 50MG EXT REL TAB PO SCH (08:12)
[2020-10-06] MEDS: FOLIC ACID 1 MG TAB PO SCH (08:12)
[2020-10-06] MEDS: MULTIVITAMIN TAB PO SCH (08:12)
[2020-10-06] MEDS: HEPARIN SOD 5,000 UNIT/0.5 ML VIAL SQ SCH ×2 (08:14→20:07)
[2020-10-06] MEDS: DEXAMETHASONE SOD PHOSPHATE 6 MG in SYRINGE 0 ML IV SCH (08:14)
[2020-10-06] MEDS: MAGNESIUM OXIDE 400 MG TAB PO SCH ×2 (08:15→20:08)
[2020-10-06] MEDS: POTASSIUM CHLORIDE PWD 20 MEQ PACK PO SCH (08:15)
--- NOTE | 2020-10-06 18:06 | Hospitalist Progress Note ---
Date of Service October 06, 2020 Assessment & Plan (1) Pneumonia due to COVID-19 virus: COVID-19 pneumonia Per admitting service notes She was brought to the ED for diarrhea and poor appetite and weakness Mostly related to the acute illness due to covid 19 CXR showed hazy bilateral interstitial airspace opacities, greatest at the left lung base. 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 Lisinopril Was held-resumed Will avoid contrast studies /NSAIDs during Weakness , Confusion Admitted with lethargy/difficult to arouse, profound weakness Metabolic encephalopathy secondary to COVID-19 pneumonia acute illness renal failure dehydration mental status improved -except for episodes of confusion -history of baseline dementia CT head showed no hemorrhage, mass effect, or evidence of acute territorial ischemia by CT criteria. Lives with her son her-per her son patient has been showing progressive Enio decline in her cognitive status, talking randomly, seeing things, repeating same sentence over and over again 4 months Son believes is at her possible baseline Dysphagia Symptom has resolved-needs assistance with meals, son was supervising all her meals at home On admission: difficult to swallow-Seems to be related to dementia and acute illness speech therapy: Easy to chew diet, aspiration precautions DM2 (diabetes mellitus, type 2): Not on any antidiabetic at home A1c 6.4 Continue monitor BS Hypothyroidism: TSH low, free T4 high reduced levothyroxine from 75 to 50 mcg daily Repeat thyroid function test as an outpatient Hypotension Mostly due to dehydration Resolved after giving IV fluids, lisinopril resumed Hypertension Resume lisinopril, resume metoprolol History of paroxysmal atrial tachycardia: Rate controlled resume Metoprolol GERD (gastroesophageal reflux disease): Continue po ppi Gout: Continue allopurinol DVT prophylaxis: Started on subcu Lovenox per COVID-19 DVT prophylaxis protocol, dose adjusted for creatinine clearance less than 30 CODE STATUS FULL code(CODE STATUS discussed with patient's son/POA on admission) Disposition Pending Lives with son at home PT and OT evaluation recommends skilled rehab Son wants to consider options between retuning home with support (home health, home PT )vs skilled rehab Son is aware that patient will need to be on home oxygen on discharge Admission and Anticipated Discharge Date Admission Date: October 01, 2020 Subjective Follow-up for Covid pneumonia, Baseline dementia, remains confused, Going nasal cannula oxygen3 L. No cough or respiratory distress noted. Unable to voice any complaint of concern secondary to mental status change. Patient was found in bed in semi reclined position, ask repeatedly to get her back to bed. Patient is made aware that she is already in her bed.-As her head of the bed was reclined further to make her comfortable, patient stays" oh, I did not know I can do that" Remains pleasant, as per nursing no agitation or confusion noted. Review of Systems Review of Systems: Unobtainable due to cognitive status (Baseline advanced dementia) Physical Exam Constitutional: WD/WN, vitals as above + ill appearing; no acute distress Eyes: + anicteric sclerae ENMT: external ear and nose normal, oropharynx normal Neck: trachea midline, no thyromegaly Respiratory: no respiratory distress and no cough Auscultation: + diminished lung sounds and + rales (At base) Cardiovascular: Rate/Rhythm: regular rate and + tachycardic Gastrointestinal (Abdomen): Percussion/Palpation: abdomen soft; abdomen nontender Musculoskeletal: no cyanosis or clubbing, extremities motor strength 5/5 Skin: no rashes, warm and dry Neurologic: PERRL, EOMI, accommodation nl, no face palsy, no dysarthria Psychiatric: Orientation: alert (Advanced dementia oriented to person only) and oriented to person Affect: + flat affect Results & Data Results & Data ([facility]) Vital Signs (Past 12 Hours) Vital Signs Temp Pulse Pulse Resp BP Pulse Ox 10/06/20 16:14 36.6 C 92 H 20 126/72 93 10/06/20 16:00 90 10/06/20 11:19 36.9 C 87 18 153/81 H 99 10/06/20 07:22 36.9 C 80 20 169/86 H 100
[2020-10-06] MEDS: REMDESIVIR 100 MG in SODIUM CHLORIDE 0.9% 230 ML IV SCH (20:02)
[2020-10-06] MEDS: SODIUM CHLORIDE 0.9% 10ML FLUSH IV SCH (20:08)
[2020-10-06] MEDS: allopurinoL 300 MG TAB PO SCH (20:08)
[2020-10-07] MEDS ORDERED: HYDROmorphone INJ 0.5 MG/0.5 ML SYR IV STA (03:56)
[2020-10-07] MEDS: PANTOprazole 40 MG TAB PO SCH ×2 (08:55→20:41)
[2020-10-07] MEDS: MULTIVITAMIN TAB PO SCH (08:55)
[2020-10-07] MEDS: METOPROLOL SUCC 50MG EXT REL TAB PO SCH (08:55)
[2020-10-07] MEDS: DEXAMETHASONE SOD PHOSPHATE 6 MG in SYRINGE 0 ML IV SCH (08:55)
[2020-10-07] MEDS: HEPARIN SOD 5,000 UNIT/0.5 ML VIAL SQ SCH (08:56)
[2020-10-07] MEDS: FOLIC ACID 1 MG TAB PO SCH (08:56)
[2020-10-07] MEDS: MAGNESIUM OXIDE 400 MG TAB PO SCH ×2 (08:56→20:41)
[2020-10-07] MEDS: CYANOCOBALAMIN 500 MCG TABLET (VITAMIN B-12) PO SCH (08:57)
[2020-10-07] MEDS: POTASSIUM CHLORIDE PWD 20 MEQ PACK PO SCH (08:57)
[2020-10-07] MEDS: cefTRIAXone SODIUM 1,000 MG in DEXTROSE 5% 50 ML IV SCH (08:57)
[2020-10-07] MEDS: ENOXAPARIN INJ 30 MG/0.3 ML SYR SQ SCH (13:03)
[2020-10-07] MEDS ORDERED: MELATONIN 3 MG TAB PO PRN (17:32)
--- NOTE | 2020-10-07 17:50 | Hospitalist Progress Note ---
Date of Service October 07, 2020 Assessment & Plan (1) Pneumonia due to COVID-19 virus: COVID-19 pneumonia Per admitting service notes She was brought to the ED for diarrhea and poor appetite and weakness Mostly related to the acute illness due to covid 19 CXR showed hazy bilateral interstitial airspace opacities, greatest at the left lung base. 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 Lisinopril Was held-resumed Will avoid contrast studies /NSAIDs during Weakness , Confusion Admitted with lethargy/difficult to arouse, profound weakness Metabolic encephalopathy secondary to COVID-19 pneumonia acute illness renal failure dehydration mental status improved -except for episodes of confusion -history of baseline dementia CT head showed no hemorrhage, mass effect, or evidence of acute territorial ischemia by CT criteria. Lives with her son her-per her son patient has been showing progressive Enio decline in her cognitive status, talking randomly, seeing things, repeating same sentence over and over again 4 months Son believes is at her possible baseline Dysphagia Symptom has resolved-needs assistance with meals, son was supervising all her meals at home On admission: difficult to swallow-Seems to be related to dementia and acute illness speech therapy: Easy to chew diet, aspiration precautions DM2 (diabetes mellitus, type 2): Not on any antidiabetic at home A1c 6.4 Continue monitor BS Hypothyroidism: TSH low, free T4 high reduced levothyroxine from 75 to 50 mcg daily Repeat thyroid function test as an outpatient Hypotension Mostly due to dehydration Resolved after giving IV fluids, lisinopril resumed Hypertension Resume lisinopril, resume metoprolol History of paroxysmal atrial tachycardia: Rate controlled resume Metoprolol GERD (gastroesophageal reflux disease): Continue po ppi Gout: Continue allopurinol DVT prophylaxis: Started on subcu Lovenox per COVID-19 DVT prophylaxis protocol, dose adjusted for creatinine clearance less than 30 CODE STATUS FULL code(CODE STATUS discussed with patient's son/POA on admission) Disposition Pending Lives with son at home PT and OT evaluation recommends skilled rehab Son wants to consider options between retuning home with support (home health, home PT )vs skilled rehab Son is aware that patient will need to be on home oxygen on discharge Admission and Anticipated Discharge Date Admission Date: October 01, 2020 Subjective Follow-up for Covid pneumonia, Baseline dementia, remains confused, Going nasal cannula oxygen3 L. No cough or respiratory distress noted. Unable to voice any complaint of concern secondary to mental status change. Physical Exam Constitutional: WD/WN, vitals as above + ill appearing; no acute distress Eyes: + anicteric sclerae ENMT: external ear and nose normal, oropharynx normal Neck: trachea midline, no thyromegaly Respiratory: no respiratory distress and no cough Auscultation: + diminished lung sounds and + rales (At base) Cardiovascular: Rate/Rhythm: regular rate and + tachycardic Gastrointestinal (Abdomen): Percussion/Palpation: abdomen soft; abdomen nontender Musculoskeletal: no cyanosis or clubbing, extremities motor strength 5/5 Skin: no rashes, warm and dry Neurologic: PERRL, EOMI, accommodation nl, no face palsy, no dysarthria Psychiatric: Orientation: alert (Advanced dementia oriented to person only) and oriented to person Affect: + flat affect Results & Data Results & Data ([facility]) Vital Signs (Past 12 Hours) Vital Signs Temp Pulse Resp BP BP Pulse Ox 10/07/20 16:31 36.6 C 87 21 126/69 97 10/07/20 11:38 36.5 C 89 22 128/88 95 10/07/20 07:02 36.4 C L 100 H 16 151/87 H 96
[2020-10-07] MEDS: REMDESIVIR 100 MG in SODIUM CHLORIDE 0.9% 230 ML IV SCH (20:05)
[2020-10-07] MEDS: ACETAMINOPHEN 325 MG TAB PO PRN (20:40)
[2020-10-07] MEDS: allopurinoL 300 MG TAB PO SCH (20:42)
[2020-10-07] MEDS: SODIUM CHLORIDE 0.9% 10ML FLUSH IV SCH (22:05)
[2020-10-07] MEDS: HYDROmorphone INJ 0.5 MG/0.5 ML SYR IV PRN (23:30)
[2020-10-08] MEDS: ACETAMINOPHEN 325 MG TAB PO PRN (06:01)
[2020-10-08] MEDS: LEVOTHYROXINE SODIUM 50 MCG TABLET PO SCH (06:02)
[2020-10-08] MEDS: HYDROmorphone INJ 0.5 MG/0.5 ML SYR IV PRN (08:20)
[2020-10-08] MEDS: DEXAMETHASONE SOD PHOSPHATE 6 MG in SYRINGE 0 ML IV SCH (08:32)
[2020-10-08] MEDS: FOLIC ACID 1 MG TAB PO SCH (08:33)
[2020-10-08] MEDS: ENOXAPARIN INJ 30 MG/0.3 ML SYR SQ SCH (08:35)
[2020-10-08] MEDS: POTASSIUM CHLORIDE PWD 20 MEQ PACK PO SCH (08:35)
[2020-10-08] MEDS: MAGNESIUM OXIDE 400 MG TAB PO SCH ×2 (08:36→20:22)
[2020-10-08] MEDS: MULTIVITAMIN TAB PO SCH (08:37)
[2020-10-08] MEDS: PANTOprazole 40 MG TAB PO SCH ×2 (08:37→20:22)
[2020-10-08] MEDS: METOPROLOL SUCC 50MG EXT REL TAB PO SCH (08:38)
[2020-10-08] MEDS: CYANOCOBALAMIN 500 MCG TABLET (VITAMIN B-12) PO SCH (08:39)
[2020-10-08] MEDS: lisinopril 5 MG TAB PO SCH (08:40)
--- NOTE | 2020-10-08 18:59 | Hospitalist Progress Note ---
Date of Service October 08, 2020 Assessment & Plan (1) Pneumonia due to COVID-19 virus: COVID-19 pneumonia Per admitting service notes She was brought to the ED for diarrhea and poor appetite and weakness Mostly related to the acute illness due to covid 19 CXR showed hazy bilateral interstitial airspace opacities, greatest at the left lung base. Procalcitonin and WBC are normal Febrile on admission with Temp 38 C Found to be hypoxic 91% on room air Continue remdesivir and Decadron day #4 clinically improved hypoxia has resolved , remains in RA Respiratory status remains stable no indication for convalescent plasma Continue incentive spirometry Acute renal failure on CKD stage 4 Secondary to prerenal etiology, secondary to diarrhea from COVID-19 infection Creatinine on admission 2.6 , baseline creatinine 1.9 to 2.1 (Outpatient lab for 2009) Acute renal failure resolved-creatinine 1.17 Was given IV fluids-continued. Lisinopril Was held-resumed Will avoid contrast studies /NSAIDs during Weakness , Confusion Admitted with lethargy/difficult to arouse, profound weakness Metabolic encephalopathy secondary to COVID-19 pneumonia acute illness renal failure dehydration mental status improved -except for episodes of confusion -history of baseline dementia CT head showed no hemorrhage, mass effect, or evidence of acute territorial ischemia by CT criteria. Lives with her son her-per her son patient has been showing progressive Enio decline in her cognitive status, talking randomly, seeing things, repeating same sentence over and over again 4 months Son believes is at her possible baseline Dysphagia Symptom has resolved-needs assistance with meals, son was supervising all her meals at home On admission: difficult to swallow-Seems to be related to dementia and acute illness speech therapy: Easy to chew diet, aspiration precautions DM2 (diabetes mellitus, type 2): Not on any antidiabetic at home A1c 6.4 Continue monitor BS Hypothyroidism: TSH low, free T4 high reduced levothyroxine from 75 to 50 mcg daily Repeat thyroid function test as an outpatient Hypotension Mostly due to dehydration Resolved after giving IV fluids, lisinopril resumed Hypertension Resume lisinopril, resume metoprolol History of paroxysmal atrial tachycardia: Rate controlled resume Metoprolol GERD (gastroesophageal reflux disease): Continue po ppi Gout: Continue allopurinol DVT prophylaxis: Started on subcu Lovenox per COVID-19 DVT prophylaxis protocol, dose adjusted for creatinine clearance less than 30 CODE STATUS FULL code(CODE STATUS discussed with patient's son/POA on admission) Disposition Pending Lives with son at home PT and OT evaluation recommends skilled rehab Son wants to consider options between retuning home with support (home health, home PT )vs skilled rehab Admission and Anticipated Discharge Date Admission Date: October 01, 2020 Subjective Follow-up for Covid pneumonia, Baseline dementia, remains confused, awake and alert today no hypoxia , not requiring 02 No cough or respiratory distress noted. Physical Exam Constitutional: WD/WN, vitals as above + ill appearing; no acute distress Eyes: + anicteric sclerae ENMT: external ear and nose normal, oropharynx normal Neck: trachea midline, no thyromegaly Respiratory: no respiratory distress and no cough Auscultation: + diminished lung sounds and + rales (At base) Cardiovascular: Rate/Rhythm: regular rate and + tachycardic Gastrointestinal (Abdomen): Percussion/Palpation: abdomen soft; abdomen nontender Musculoskeletal: no cyanosis or clubbing, extremities motor strength 5/5 Skin: no rashes, warm and dry Neurologic: PERRL, EOMI, accommodation nl, no face palsy, no dysarthria Psychiatric: Orientation: alert (Advanced dementia oriented to person only) and oriented to person Affect: + flat affect Results & Data Results & Data ([facility]) Vital Signs (Past 12 Hours) Vital Signs Temp Pulse Resp BP BP Pulse Ox 10/08/20 15:37 36.7 C 83 17 126/74 94 10/08/20 08:30 86 122/74 10/08/20 07:34 37.2 C 92 H 16 115/64 92
[2020-10-08] MEDS: REMDESIVIR 100 MG in SODIUM CHLORIDE 0.9% 230 ML IV SCH (20:21)
[2020-10-08] MEDS: allopurinoL 300 MG TAB PO SCH (20:22)
[2020-10-08] MEDS: SODIUM CHLORIDE 0.9% 10ML FLUSH IV SCH (22:01)
[2020-10-09] MEDS: LEVOTHYROXINE SODIUM 50 MCG TABLET PO SCH (05:03)
[2020-10-09] MEDS: DEXAMETHASONE SOD PHOSPHATE 6 MG in SYRINGE 0 ML IV SCH (08:50)
[2020-10-09] MEDS: ENOXAPARIN INJ 30 MG/0.3 ML SYR SQ SCH (08:54)
[2020-10-09] MEDS: POTASSIUM CHLORIDE PWD 20 MEQ PACK PO SCH (08:55)
[2020-10-09] MEDS: MAGNESIUM OXIDE 400 MG TAB PO SCH ×2 (08:56→20:56)
[2020-10-09] MEDS: FOLIC ACID 1 MG TAB PO SCH (08:56)
[2020-10-09] MEDS: MULTIVITAMIN TAB PO SCH (08:57)
[2020-10-09] MEDS: PANTOprazole 40 MG TAB PO SCH ×2 (08:58→20:54)
[2020-10-09] MEDS: METOPROLOL SUCC 50MG EXT REL TAB PO SCH (08:59)
[2020-10-09] MEDS: CYANOCOBALAMIN 500 MCG TABLET (VITAMIN B-12) PO SCH (09:01)
[2020-10-09] MEDS: lisinopril 5 MG TAB PO SCH (09:01)
--- NOTE | 2020-10-09 11:47 | XRay Report ---
XR hip 1V RT w pelvis CLINICAL HISTORY: Right groin pain COMPARISON: 03/14/2019 DISCUSSION: There is no SI joint diastases. There is no symphysis diastases. No fractures or dislocat ions are visualized. There are mild degenerative changes involving the hip. Moderate degenerative ch anges are present within the lower lumbar spine IMPRESSION: No fractures or dislocations identified. ACT 112: Negative or not required by law. Electronically signed by: Ankur Chu M.D. 10/09/2020 11:45 AM
[2020-10-09] MEDS: HYDROmorphone INJ 0.5 MG/0.5 ML SYR IV PRN (11:54)
--- NOTE | 2020-10-09 12:35 | Communication Note ---
Date of Service: October 09, 2020 Attending addendum: pt has been complaining of pain on right groin area hx of fall at home xray of pelvis /rt hip : no fracture noted cont symptomatic management Lidoderm Patch ordered Sonia Hernandez MD
[2020-10-09] MEDS ORDERED: LIDOCAINE 5% 1 PATCH TD SCH (12:45)
[2020-10-09] MEDS: LIDOCAINE 5% 1 PATCH TD SCH (14:08)
[2020-10-09] MEDS: traMADol HCL 50 MG TABLET PO PRN (17:12)
--- NOTE | 2020-10-09 18:44 | Hospitalist Progress Note ---
Date of Service October 09, 2020 Assessment & Plan (1) Pneumonia due to COVID-19 virus: COVID-19 pneumonia Per admitting service notes She was brought to the ED for diarrhea and poor appetite and weakness Mostly related to the acute illness due to covid 19 CXR showed hazy bilateral interstitial airspace opacities, greatest at the left lung base. Procalcitonin and WBC are normal Febrile on admission with Temp 38 C Found to be hypoxic 91% on room air Continue remdesivir and Decadron day #4 clinically improved hypoxia has resolved , remains in RA Rt hip pain : pt has been complaining of pain on right groin area hx of fall at home xray of pelvis /rt hip : no fracture noted cont symptomatic management Lidoderm Patch ordered Respiratory status remains stable no indication for convalescent plasma Continue incentive spirometry Acute renal failure on CKD stage 4 Secondary to prerenal etiology, secondary to diarrhea from COVID-19 infection Creatinine on admission 2.6 , baseline creatinine 1.9 to 2.1 (Outpatient lab for 2009) Acute renal failure resolved-creatinine 1.17 Was given IV fluids-continued. Lisinopril Was held-resumed Will avoid contrast studies /NSAIDs during Weakness , Confusion Admitted with lethargy/difficult to arouse, profound weakness Metabolic encephalopathy secondary to COVID-19 pneumonia acute illness renal failure dehydration mental status improved -except for episodes of confusion -history of baseline dementia CT head showed no hemorrhage, mass effect, or evidence of acute territorial ischemia by CT criteria. Lives with her son her-per her son patient has been showing progressive Enio decline in her cognitive status, talking randomly, seeing things, repeating same sentence over and over again 4 months Son believes is at her possible baseline Dysphagia Symptom has resolved-needs assistance with meals, son was supervising all her meals at home On admission: difficult to swallow-Seems to be related to dementia and acute illness speech therapy: Easy to chew diet, aspiration precautions DM2 (diabetes mellitus, type 2): Not on any antidiabetic at home A1c 6.4 Continue monitor BS Hypothyroidism: TSH low, free T4 high reduced levothyroxine from 75 to 50 mcg daily Repeat thyroid function test as an outpatient Hypotension Mostly due to dehydration Resolved after giving IV fluids, lisinopril resumed Hypertension Resume lisinopril, resume metoprolol History of paroxysmal atrial tachycardia: Rate controlled resume Metoprolol GERD (gastroesophageal reflux disease): Continue po ppi Gout: Continue allopurinol DVT prophylaxis: Started on subcu Lovenox per COVID-19 DVT prophylaxis protocol, dose adjusted for creatinine clearance less than 30 CODE STATUS FULL code(CODE STATUS discussed with patient's son/POA on admission) Disposition Pending Lives with son at home PT and OT evaluation recommends skilled rehab Son wants to consider options between retuning home with support (home health, home PT )vs skilled rehab Admission and Anticipated Discharge Date Admission Date: October 01, 2020 Subjective Follow-up for Covid pneumonia, Baseline dementia, offers no complain no hypoxia , not requiring 02 No cough or respiratory distress noted. Physical Exam Constitutional: WD/WN, vitals as above + ill appearing; no acute distress Eyes: + anicteric sclerae ENMT: external ear and nose normal, oropharynx normal Neck: trachea midline, no thyromegaly Respiratory: no respiratory distress and no cough Auscultation: + diminished lung sounds and + rales (At base) Cardiovascular: Rate/Rhythm: regular rate and + tachycardic Gastrointestinal (Abdomen): Percussion/Palpation: abdomen soft; abdomen nontender Musculoskeletal: no cyanosis or clubbing, extremities motor strength 5/5 Skin: no rashes, warm and dry Neurologic: PERRL, EOMI, accommodation nl, no face palsy, no dysarthria Psychiatric: Orientation: alert (Advanced dementia oriented to person only) and oriented to person Affect: + flat affect Results & Data Results & Data ([facility]) Vital Signs (Past 12 Hours) Vital Signs Temp Pulse Resp BP BP Pulse Ox 10/09/20 15:10 36.6 C 75 20 127/69 96 10/09/20 07:44 36.9 C 72 16 130/65 92
[2020-10-09] MEDS: allopurinoL 300 MG TAB PO SCH (20:55)
[2020-10-09] MEDS: MELATONIN 3 MG TAB PO SCH (20:56)
[2020-10-09] MEDS: ACETAMINOPHEN 325 MG TAB PO PRN (22:16)
[2020-10-10] MEDS: traMADol HCL 50 MG TABLET PO PRN ×3 (01:35→22:48)
[2020-10-10] MEDS: LEVOTHYROXINE SODIUM 50 MCG TABLET PO SCH (04:52)
[2020-10-10 06:03] LABS: Basophils # (auto) 0.01 K/uL (0-0.2); Basophils % (auto) 0.1 %; Eosinophils # (auto) 0.01 K/uL (0-0.5); Eosinophils % (auto) 0.1 %; Hematocrit (blood only) 35.5 % (37-47); Hemoglobin 11.7 g/dL (12.0-16.0); Immature Granulocytes # (auto) 0.18 K/uL (0.00-0.02); Immature Granulocytes % (auto) 1.2 %; Lymphocytes % (auto) 13.1 %; Mean Corpuscular Hemoglobin 33.1 pg (25-34); Mean Corpuscular Volume 100.6 fL (80-100); Mean Platelet Volume 10.6 fL (7.4-10.4); Monocytes # (auto) 0.31 K/uL (0.11-0.59); Monocytes % (auto) 2.1 %; Neutrophils # (auto) 12.09 K/uL (1.4-6.5); Neutrophils % (auto) 83.4 %; Platelet Count 681 K/uL (130-400); RDW Coefficient of Variation 14.3 % (11.5-14.5); RDW Standard Deviation 52.4 fL (36.4-46.3); Red Blood Count 3.53 M/uL (4.2-5.4)
[2020-10-10 06:21] LABS: Albumin Level 3.2 gm/dl (3.4-5.0); BUN Creatinine Ratio 30.9 (10-20); Calcium 9.9 mg/dl (8.5-10.1); Creatinine Clr Calc Pharmacy 22.6 ml/min; Est GFR (African American) 40.2; Est GFR (Non-African American) 34.7; Potassium 4.7 mmol/L (3.5-5.1)
[2020-10-10] MEDS ORDERED: CARBOHYDRATES FOR HYPOGLYCEMIA PO PRN (06:30)
[2020-10-10] MEDS ORDERED: GLUCAGON FOR INJ 1 MG VIAL IM PRN (06:30)
[2020-10-10] MEDS ORDERED: GLUCOSE 10 TABS/TUBE PO PRN (06:30)
[2020-10-10] MEDS ORDERED: DEXTROSE 50% 50 ML SYRINGE IV PRN (06:30)
[2020-10-10] MEDS ORDERED: GLUCOSE 40% GEL 15 GM TUBE PO PRN (06:30)
[2020-10-10 06:37] LABS: Albumin Globulin Ratio 0.7 (0.9-2); Bilirubin,Total 0.4 mg/dl (0.2-1); Globulin 4.5 gm/dl (2.5-4.0); Total Protein 7.7 gm/dl (6.4-8.2)
[2020-10-10 06:42] LABS: Base Excess ABG -0.5 mEq/L (-9-1.8); HCO3 ABG 22 mmol/L (19-24); Oxygen Saturation ABG 94.5 % (90-95); PCO2 ABG 30 mmHg (35-46); PO2 ABG 71 mmHg (80-95); pH ABG 7.48 (7.35-7.45)
[2020-10-10 06:48] LABS: Allen Test Pos (Pos)
[2020-10-10] MEDS: METOPROLOL SUCC 50MG EXT REL TAB PO SCH (09:18)
[2020-10-10] MEDS: MAGNESIUM OXIDE 400 MG TAB PO SCH ×2 (09:19→22:48)
[2020-10-10] MEDS: CYANOCOBALAMIN 500 MCG TABLET (VITAMIN B-12) PO SCH (09:19)
[2020-10-10] MEDS: PANTOprazole 40 MG TAB PO SCH ×2 (09:19→22:48)
[2020-10-10] MEDS: MULTIVITAMIN TAB PO SCH (09:20)
[2020-10-10] MEDS: FOLIC ACID 1 MG TAB PO SCH (09:20)
[2020-10-10] MEDS: lisinopril 5 MG TAB PO SCH (09:20)
[2020-10-10] MEDS: ENOXAPARIN INJ 30 MG/0.3 ML SYR SQ SCH (09:21)
[2020-10-10] MEDS: POTASSIUM CHLORIDE PWD 20 MEQ PACK PO SCH (09:21)
[2020-10-10] MEDS: LIDOCAINE 5% 1 PATCH TD SCH (09:23)
[2020-10-10] MEDS: INSULIN ASPART 100 UNITS/ML 3 ML PEN SC SCH ×4 (09:23→22:59)
[2020-10-10] MEDS: ACETAMINOPHEN 325 MG TAB PO PRN (18:05)
--- NOTE | 2020-10-10 18:32 | Hospitalist Progress Note ---
Date of Service October 10, 2020 Assessment & Plan (1) Pneumonia due to COVID-19 virus: COVID-19 pneumonia Clinically improved, no fever or chills, no hypoxia, no cough Per admitting service notes She was brought to the ED for diarrhea and poor appetite and weakness Mostly related to the acute illness due to covid 19 CXR showed hazy bilateral interstitial airspace opacities, greatest at the left lung base. Procalcitonin and WBC are normal Was febrile on admission with Temp 38 C Found to be hypoxic 91% on room air /but supplemental O2 Completed IV remdesivir and Decadron hypoxia has resolved , remains in RA Rt hip pain : pt has been complaining of pain on right groin area hx of fall at home xray of pelvis /rt hip : no fracture noted . 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 Secondary to prerenal etiology, secondary to diarrhea from COVID-19 infection Creatinine on admission 2.6 , baseline creatinine 1.9 to 2.1 (Outpatient lab for 2009) Acute renal failure resolved-creatinine 1.17/IV fluid Home medication lisinopril resumed Will avoid contrast studies /NSAIDs during Weakness , Confusion Admitted with lethargy/difficult to arouse, profound weakness Metabolic encephalopathy secondary to COVID-19 pneumonia acute illness renal failure dehydration mental status improved -except for episodes of confusion -history of baseline dementia CT head showed no hemorrhage, mass effect, or evidence of acute territorial ischemia by CT criteria. Lives with her son her-per her son patient has been showing progressive Enio dec line in her cognitive status, talking randomly, seeing things, repeating same sentence over and over again 4 months Son believes is at her possible baseline Dysphagia Symptom has resolved-needs assistance with meals, son was supervising all her meals at home On admission: difficult to swallow-Seems to be related to dementia and acute illness speech therapy: Easy to chew diet, aspiration precautions DM2 (diabetes mellitus, type 2): Not on any antidiabetic at home A1c 6.4 Continue monitor BS Hypothyroidism: TSH low, free T4 high reduced levothyroxine from 75 to 50 mcg daily Repeat thyroid function test as an outpatient Hypotension Mostly due to dehydration Resolved after giving IV fluids, lisinopril resumed Hypertension Resume lisinopril, resume metoprolol History of paroxysmal atrial tachycardia: Rate controlled resume Metoprolol GERD (gastroesophageal reflux disease): Continue po ppi Gout: Continue allopurinol DVT prophylaxis: Started on subcu Lovenox per COVID-19 DVT prophylaxis protocol, dose adjusted for creatinine clearance less than 30 CODE STATUS FULL code(CODE STATUS discussed with patient's son/POA on admission) Disposition Significant deconditioned, recommend rehab, Patient will be discharged to rehab when bed available Admission and Anticipated Discharge Date Admission Date: October 01, 2020 Subjective Follow-up for Covid pneumonia, Baseline dementia, Complains of right groin pain worse with movement No shortness of breath, no fever or chills, did not require any oxygen Physical Exam Constitutional: WD/WN, vitals as above no acute distress Eyes: + anicteric sclerae ENMT: external ear and nose normal, oropharynx normal Neck: trachea midline, no thyromegaly Respiratory: no respiratory distress and no cough Cardiovascular: Rate/Rhythm: regular rate Gastrointestinal (Abdomen): Percussion/Palpation: abdomen soft; abdomen nontender Musculoskeletal: no cyanosis or clubbing, extremities motor strength 5/5 Skin: no rashes, warm and dry Neurologic: PERRL, EOMI, accommodation nl, no face palsy, no dysarthria Psychiatric: Orientation: alert (Advanced dementia oriented to person only) and oriented to person Affect: + flat affect Results & Data Results & Data ([facility]) Vital Signs (Past 12 Hours) Vital Signs Temp Pulse Resp BP BP Pulse Ox 10/10/20 15:58 37.3 C 78 16 107/68 94 10/10/20 07:37 37 C 77 18 134/77 93
[2020-10-10] MEDS: MELATONIN 3 MG TAB PO SCH (22:48)
[2020-10-10] MEDS: allopurinoL 300 MG TAB PO SCH ×2 (22:49→22:58)
[2020-10-11] MEDS: LEVOTHYROXINE SODIUM 50 MCG TABLET PO SCH (06:18)
[2020-10-11] MEDS: LIDOCAINE 5% 1 PATCH TD SCH (09:53)
[2020-10-11] MEDS: traMADol HCL 50 MG TABLET PO PRN (09:54)
[2020-10-11] MEDS: INSULIN ASPART 100 UNITS/ML 3 ML PEN SC SCH ×2 (09:54→13:04)
[2020-10-11] MEDS: ENOXAPARIN INJ 30 MG/0.3 ML SYR SQ SCH (09:55)
[2020-10-11] MEDS: METOPROLOL SUCC 50MG EXT REL TAB PO SCH (09:56)
[2020-10-11] MEDS: MAGNESIUM OXIDE 400 MG TAB PO SCH (09:56)
[2020-10-11] MEDS: PANTOprazole 40 MG TAB PO SCH (09:56)
[2020-10-11] MEDS: POTASSIUM CHLORIDE PWD 20 MEQ PACK PO SCH (09:57)
[2020-10-11] MEDS: CYANOCOBALAMIN 500 MCG TABLET (VITAMIN B-12) PO SCH (09:57)
[2020-10-11] MEDS: MULTIVITAMIN TAB PO SCH (09:57)
[2020-10-11] MEDS: lisinopril 5 MG TAB PO SCH (09:58)
[2020-10-11] MEDS: FOLIC ACID 1 MG TAB PO SCH (09:59)
[2020-10-11] MEDS ORDERED: bisacodyL 10 MG SUPP PR STA (13:34)
--- NOTE | 2020-10-11 14:48 | Discharge Summary ---
Date of Service October 11, 2020 Admission HPI Per Admitting Provider 89-year-old female with past medical history significant for type 2 diabetes, not on any medication, history of gout, history of benign neoplasm of adrenal gland, hyperlipidemia, hypothyroidism, hypertension, paroxysmal atrial tachycardia, GERD, acoustic neuroma, Alzheimer disease, spinal stenosis, history of bladder cancer, major depression, generalized anxiety disorder, was brought to the ED by son to evaluate for dehydration due to poor appetite, diarrhea and weakness. History obtained from son over the phone since he is the horticulture instructor and pt has dementia. Son said that since Saturday pt has been having diarrhea associated with poor oral intake. Pt has been drinking 1 to 2 boost and a slice of toast for the day. Son said that pt usually used a walker to ambulate but lately she has been very weak and requires a lot of help to stand up. Son said that pt has been lethargy and more confused from baseline. She has been having on and off fever mostly in the morning and has been taking Tylenol for the it t hat seems to help. He said that she was having some difficulty to swallow. He said that he used pudding to mix the pills that she can swallow them. Son said that his sister was recently diagnosed with covid 19 about 5 days ago and pt had contact with her daughter on 09/21. Son said that he has the similar symptoms with his mother and thought that was a viral gastroenteritis. Son said that pt has not had any respiratory symptoms, except her usual one an off dry cough usually from post nasal drip due to running nose from allergies. They both got testing for COVID 19 on 09/28 and waiting for the result. In the ER she was testing positive for COVID 19 and received IVF. Currently pt lying in bed with no distress, denies any chest pain, palpitation, dizziness and SOB. Principal Diagnosis COVID-19 pneumonia, generalized weakness Acute renal failure on CKD stage III, resolved Advanced dementia Paroxysmal A. fib Discharge Exam Constitutional WD/WN, vitals as above no acute distress Eyes + anicteric sclerae ENMT external ear and nose normal, oropharynx normal Neck trachea midline, no thyromegaly Respiratory no respiratory distress and no cough Auscultation: + diminished lung sounds and + rales (At base) Cardiovascular Rate/Rhythm: regular rate Gastrointestinal (Abdomen) Percussion/Palpation: abdomen soft; abdomen nontender Musculoskeletal no cyanosis or clubbing, extremities motor strength 5/5 Skin no rashes, warm and dry Neurologic PERRL, EOMI, accommodation nl, no face palsy, no dysarthria Psychiatric Orientation: alert (Advanced dementia oriented to person only) and oriented to person Affect: + flat affect Discharge Data Allergies Allergy/AdvReac Type Severity Reaction Status Date / Time mirtazapine AdvReac Mild Increased Verified 10/01/20 13:46 Anxiety oxycodone AdvReac Mild GI SYMPTOMS Verified 10/01/20 13:46 morphine AdvReac Unknown NAUSEA Verified 10/01/20 13:46 Consultations 10/01/20 13:53 ED Decision to Admit Stat 10/01/20 18:58 Consult Case Management - Discharge Planning Routine Ordered Studies 10/01/20 16:19 CT head/brain wo con Routine 10/04/20 16:29 CT abd pelvis wo con Stat Hospital Course (1) Pneumonia due to COVID-19 virus: COVID-19 pneumonia Clinically improved, no fever or chills, no hypoxia, no cough Per admitting service notes She was brought to the ED for diarrhea and poor appetite and weakness Mostly related to the acute illness due to covid 19 CXR showed hazy bilateral interstitial airspace opacities, greatest at the left lung base. Procalcitonin and WBC are normal Was febrile on admission with Temp 38 C Found to be hypoxic 91% on room air /but supplemental O2 Completed IV remdesivir and Decadron hypoxia has resolved , remains in RA Rt hip pain : pt has been complaining of pain on right groin area hx of fall at home xray of pelvis /rt hip : no fracture noted . 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 Secondary to prerenal etiology, secondary to diarrhea from COVID-19 infection Creatinine on admission 2.6 , baseline creatinine 1.9 to 2.1 (Outpatient lab for 2009) Acute renal failure resolved-creatinine 1.17/IV fluid Home medication lisinopril resumed Will avoid contrast studies /NSAIDs during Weakness , Confusion Admitted with lethargy/difficult to arouse, profound weakness Metabolic encephalopathy secondary to COVID-19 pneumonia acute illness renal failure dehydration mental status improved -except for episodes of confusion -history of baseline dementia CT head showed no hemorrhage, mass effect, or evidence of acute territorial ischemia by CT criteria. Lives with her son her-per her son patient has been showing progressive Enio decline in her cognitive status, talking randomly, seeing things, repeating same sentence over and over again 4 months Son believes is at her possible baseline Dysphagia Symptom has resolved-needs assistance with meals, son was supervising all her meals at home On admission: difficult to swallow-Seems to be related to dementia and acute illness speech therapy: Easy to chew diet, aspiration precautions DM2 (diabetes mellitus, type 2): Not on any antidiabetic at home A1c 6.4 Continue monitor BS Hypothyroidism: TSH low, free T4 high reduced levothyroxine from 75 to 50 mcg daily Repeat thyroid function test as an outpatient Hypotension Mostly due to dehydration Resolved after giving IV fluids, lisinopril resumed Hypertension Resume lisinopril, resume metoprolol History of paroxysmal atrial tachycardia: Rate controlled resume Metoprolol GERD (gastroesophageal reflux disease): Continue po ppi Gout: Continue allopurinol DVT prophylaxis: Started on subcu Lovenox per COVID-19 DVT prophylaxis protocol, dose adjusted for creatinine clearance less than 30 CODE STATUS FULL code(CODE STATUS discussed with patient's son/POA on admission) Disposition Significant deconditioned, recommend rehab, transferred to [facility] for rehab in stable condition Total Time Total Time Spent Total Time Spent (In Minutes): 30 mins Total Time Includes: Discharge Planning and Medication Reconciliation Discharge Plan Discharge Items Patient Disposition: Transfer Group Home Fac Reason For Visit: WEAKNESS Discharge Diagnosis: COVID-19 pneumonia, generalized weakness Acute renal failure on CKD stage III, resolved Advanced dementia Paroxysmal A. fib Activity: As commented below Activity Comment: Continue physical therapy occupational therapy at rehab Non-emergency contact: Primary Care Provider Call non-emergency contact if: you have any medication questions Follow-up/Referrals: Jeff Good, [Primary Care Provider] - Diet: Heart Healthy Diet Texture: Dental soft (bite-sized) Addtl Attending Provider Instructions: Follow-up with family physician after discharge from rehab MiraLAX 1 tablespoon in 8 ounce of water daily to prevent constipation Lovenox subcu 30 mg once daily for next 2 weeks to prevent lower extremity DVT. Increase activity as tolerated Level thyroxine dose reduced from 75 mcg to 50 mcg, repeat TSH level in 4-6 weeks Addtl Truck Driving Provider Instructions: Home Isolation COVID-19 Instructions The following information about Home Isolation is from the CDC Website: https://www.cdc.gov/coronavirus/2019-ncov/hcp/tyfrfcki-regpnvl-zjhcej.html Stay home except to get medical care People who are mildly ill with COVID-19 are able to isolate at home during their illness. You should restrict activities outside your home, except for getting medical care. Do not go to work, school, or public areas. Avoid using public transportation, ride-sharing, or taxis. Separate yourself from other people and animals in your home People: As much as possible, you should stay in a specific room and away from other people in your home. Also, you should use a separate bathroom, if available. Animals: You should restrict contact with pets and other animals while you are sick with COVID-19, just like you would around other people. Although there have not been reports of pets or other animals becoming sick with COVID-19, it is still recommended that people sick with COVID-19 limit contact with animals until more information is known about the virus. When possible, have another member of your household care for your animals while you are sick. If you are sick with COVID-19, avoid contact with your pet, including petting, snuggling, b eing kissed or licked, and sharing food. If you must care for your pet or be around animals while you are sick, wash your hands before and after you interact with pets and wear a face mask. Call ahead before visiting your doctor If you have a medical appointment, call the healthcare provider and tell them that you have or may have COVID-19. This will help the healthcare providers office take steps to keep other people from getting infected or exposed. Wear a face mask You should wear a face mask when you are around other people (e.g., sharing a room or vehicle) or pets and before you enter a healthcare providers office. If you are not able to wear a face mask (for example, because it causes trouble breathing), then people who live with you should not stay in the same room with you, or they should wear a face mask if they enter your room. Cover your coughs and sneezes Cover your mouth and nose with a tissue when you cough or sneeze. Throw used tissues in a lined trash can. Immediately wash your hands with soap and water for at least 20 seconds or, if soap and water are not available, clean your hands with an alcohol-based hand spool sorter that contains at least 60% alcohol. Clean your hands often Wash your hands often with soap and water for at least 20 seconds, especially af ter blowing your nose, coughing, or sneezing; going to the bathroom; and before eating or preparing food. If soap and water are not readily available, use an alcohol-based hand spool sorter with at least 60% alcohol, covering all surfaces of your hands and rubbing them together until they feel dry. Soap and water are the best option if hands are visibly dirty. Avoid touching your eyes, nose, and mouth with unwashed hands. Avoid sharing personal household items You should not share dishes, drinking glasses, cups, eating utensils, towels, or bedding with other people or pets in your home. After using these items, they should be washed thoroughly with soap and water. Clean all high-touch surfaces everyday High touch surfaces include counters, tabletops, doorknobs, bathroom fixtures, toilets, phones, keyboards, tablets, and bedside tables. Also, clean any surfaces that may have blood, stool, or body fluids on them. Use a household cleaning spray or wipe, according to the label instructions. Labels contain instructions for safe and effective use of the cleaning product including precautions you should take when applying the product, such as wearing gloves and making sure you have good ventilation during use of the product. Monitor your symptoms Seek prompt medical attention if your illness is worsening (e.g., difficulty breathing).Beforeseeking care, call your healthcare provider and tell them that you have, or are being evaluated for, COVID-19. Put on a face mask before you enter the facility. These steps will help the healthcare providers office to keep other people in the office or waiting room from getting infected or exposed. Ask your healthcare provider to call the local or state health department. Persons who are placed under active monitoring or facilitated self- monitoring should follow instructions provided by their local health department or occupational health professionals, as appropriate. When working with your local health department check their available hours. If you have a medical emergency and need to call 911, notify the dispatch personnel that you have, or are being evaluated for COVID-19. If possible, put on a face mask before emergency medical services arrive. Pending Studies at Discharge: No Stand-Alone Forms: [facility] Skilled Items Patient informed of condition?: Yes DNR: Yes Discharge Level of Care: Skilled Communicable Disease: No Discharge Prognosis: Stable Lines: None Urinary Catheter: No Medications and DC Order Prescriptions: New tramadol 50 mg Tablet 50 mg PO Q8 PRN (Reason: pain) Qty: 10 RF: 0 potassium chloride 20 mEq Packet 40 meq PO QAM 30 Days RF: 0 levothyroxine [Synthroid] 50 mcg Tablet 50 mcg PO DAILYBB 30 Days Qty: 30 RF: 0 enoxaparin [Lovenox] 30 mg/0.3 mL Syringe 30 mg subcut QAM 14 Days Qty: 4.2 RF: 0 polyethylene glycol 3350 [Miralax] 17 gram/dose powder 17 g PO DAILY 30 Days Qty: 510 RF: 0 Continued multivitamin Tablet 1 tab PO QAM RF: 0 metoprolol succinate 50 mg tablet extended release 24 hr 50 mg PO QAM RF: 0 omeprazole 40 mg capsule,delayed release(DR/EC) 40 mg PO BID RF: 0 folic acid 1 mg tablet 1 mg PO QAM RF: 0 allopurinol 300 mg tablet 300 mg PO HS RF: 0 lisinopril 5 mg tablet 5 mg PO QAM RF: 0 cyanocobalamin (vitamin B-12) [Vitamin B-12] 1,000 mcg Tablet 0 mcg PO QAM RF: 0 melatonin 3 mg Tablet 0 mg PO HS PRN (Reason: Sleep) RF: 0 Discontinued levothyroxine 75 mcg tablet 75 mcg PO QAM RF: 0 Discharge Orders: Discharge Order (Routine); Ordered 10/11/20 Ordered By: Sonia Hernandez Admission Data Admit Date/Time: 10/01/20 15:42 Attending Provider: Sonia Hernandez Admit Provider: Ida Seymour Primary Care Provider: Jeff Good Other Providers: Sabas Miranda ; [facility] ; Ida Seymour Other Interventions: Discharge Summary Assessment (RN) Last Done: 10/11/20 14:35
== END 2020-10-11 14:36 | DRG 177 ==
LOC: ED 12:11 → EDINP 15:42 → SUATTDRO 15:42 → 2S 22:41 → 3E 10-07 17:25

== ENCOUNTER 2021-12-29 02:12 | Inpatient (IN) ==
[2021-12-29 02:52] LABS: Basophils # (auto) 0.03 K/uL (0-0.2); Basophils % (auto) 0.4 %; Eosinophils # (auto) 0.18 K/uL (0-0.5); Eosinophils % (auto) 2.1 %; Hematocrit (blood only) 36.5 % (37-47); Hemoglobin 12.2 g/dL (12.0-16.0); Immature Granulocytes # (auto) 0.02 K/uL (0.00-0.02); Immature Granulocytes % (auto) 0.2 %; Lymphocytes # (auto) 1.15 K/uL (1.2-3.4); Lymphocytes % (auto) 13.4 %; Mean Corpuscular Hemoglobin 32.8 pg (25-34); Mean Corpuscular Hgb Conc 33.4 g/dL (32-36); Mean Corpuscular Volume 98.1 fL (80-100); Mean Platelet Volume 10.5 fL (7.4-10.4); Monocytes # (auto) 0.36 K/uL (0.11-0.59); Monocytes % (auto) 4.2 %; Neutrophils # (auto) 6.83 K/uL (1.4-6.5); Neutrophils % (auto) 79.7 %; Platelet Count 357 K/uL (130-400); RDW Coefficient of Variation 16.2 % (11.5-14.5); RDW Standard Deviation 58.3 fL (36.4-46.3); Red Blood Count 3.72 M/uL (4.2-5.4); White Blood Count 8.57 K/uL (4.8-10.8)
[2021-12-29 03:12] LABS: Troponin I 0.03 ng/ml (0-0.04)
[2021-12-29] MEDS ORDERED: ONDANSETRON INJ 2 MG/ML 2 ML VIAL IV STA ×2 (03:12→03:47)
[2021-12-29] MEDS ORDERED: ONDANSETRON INJ 2 MG/ML 2 ML VIAL ONE (03:13)
[2021-12-29] MEDS: SODIUM CHLORIDE 0.9% 1000ML 1,000 ML IV SCH ×2 (03:13→09:18)
[2021-12-29 03:23] LABS: Alanine Aminotransferase 21 U/L (7-52); Albumin Globulin Ratio 1.5 (0.9-2); Albumin Level 4.2 gm/dl (3.4-5.0); Alkaline Phosphatase 91 U/L (34-104); Anion Gap 11 (3-11); Aspartate Aminotransferase 26 U/L (13-39); BUN Creatinine Ratio 23.1 (10-20); Bilirubin,Total 0.3 mg/dl (0.2-1.0); Blood Urea Nitrogen 34 mg/dl (6-23); Calcium 9.4 mg/dl (8.5-10.1); Carbon Dioxide 23 mmol/L (21-32); Chloride 108 mmol/L (98-107); Est GFR (African American) 36.3 ml/min; Est GFR (Non-African American) 31.3 ml/min; Globulin 2.8 gm/dl (2.5-4.0); Glucose 135 mg/dl (70-99(Fasting)); Lipase 24 U/L (11-82); Magnesium 1.8 mg/dl (1.7-2.4); Potassium 3.4 mmol/L (3.5-5.1); Sodium 142 mmol/L (136-145)
--- NOTE | 2021-12-29 03:34 | Emergency Department Note ---
History of Present Illness General Chief complaint: Shortness of Breath/Dyspnea Stated complaint: SOB Time Seen by Provider: 12/29/21 02:17 Source: patient Mode of arrival: EMS Limitations: altered mental status History of Present Illness Provider complaint: Abdominal pain, vomiting, constipation Associated symptoms: + loss of appetite, + malaise, + nausea/vomiting and + shortness of breath; no chest pain or no syncope Treatments prior to arrival: other This is an 89-year-old female who presents by EMS due to concern for nausea vomiting. Patient states she has had abdominal pain and constipation over the last 2 weeks although she did have a bowel movement earlier today. Patient denies fevers or chills. Patient states she has had prior abdominal surgeries. Patient states she began having vomiting this evening and then developed trouble breathing. Per EMS on arrival patient's oxygen saturations were in the 80s, she was placed on nasal cannula and oxygenation improved. Patient denies any current shortness of breath, or chest pain. Patient states she still feels mildly nauseated, denies any abdominal pain. Patient denies any change in her urine. Pt seen during a time of high acuity and national emergency pandemic while wearing PPE. Home Medications Medication Instructions Recorded Confirmed Type allopurinol 300 mg tablet 300 mg PO HS 03/14/19 12/29/21 History folic acid 1 mg tablet 1 mg PO QAM 03/14/19 12/29/21 History lisinopril 5 mg tablet 5 mg PO QAM 03/14/19 12/29/21 History metoprolol succinate 50 mg 50 mg PO QAM 03/14/19 12/29/21 History tablet,extended release 24 hr omeprazole 40 mg capsule,delayed 40 mg PO BID 03/14/19 12/29/21 History release acetaminophen 500 mg tablet 500 - 1,000 mg PO DIRECTED PRN 12/29/21 12/29/21 History (Tylenol Extra Strength) diphenhydramine HCl 25 mg capsule 25 mg PO HS 12/29/21 12/29/21 History (Benadryl) docusate sodium 100 mg capsule 100 mg PO DAILY PRN 12/29/21 12/29/21 History (Stool Softener) escitalopram oxalate 10 mg tablet 10 mg PO HS 12/29/21 12/29/21 History furosemide 20 mg tablet 10 mg PO DAILY PRN 12/29/21 12/29/21 History levothyroxine 75 mcg tablet 75 mcg PO QAM 12/29/21 12/29/21 History Allergies Allergy/AdvReac Type Severity Reaction Status Date / Time mirtazapine AdvReac Intermediate Increased Verified 12/29/21 02:42 Anxiety morphine AdvReac Intermediate NAUSEA Verified 12/29/21 02:42 oxycodone AdvReac Intermediate GI SYMPTOMS Verified 12/29/21 02:42 Past Med/Surg History Medical History (Updated 12/30/21 @ 22:10 by Olga Graves DO) 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 Dementia Diverticulitis Family History Other Family history non-contributory Social History Smoking Status: Former smoker Tobacco Type: Cigarettes Second Hand Exposure: No; Hx Alcohol Use: No Hx Substance Use: No Preferred Language: Egyptian Communication Ability: Effective Hearing Ability: Hard of Hearing Densitometer Reader Required: No Beliefs That Will Affect Care: None marital status: / Current Living Situation: Family current occupational status: retired Feels Safe at Home: Yes Safety Concerns: Feels Safe At This Time Assistive Devices: Wheelchair Review of Systems A total of 10 systems reviewed and were otherwise negative All systems reviewed & are unremarkable except as noted in HPI & below Physical Exam Vital Signs Vital Signs - 24 hr 12/29/21 02:28 12/29/21 02:33 12/29/21 02:57 Temperature 36.9 C Temperature Source Oral Pulse Rate 82 Pulse Rate [Apical] Respiratory Rate 20 Respiratory Effort / Characteristics Non-Labored Nasal Congestion Respiratory Depth Normal Respiratory Pattern Regular Regular Blood Pressure 152/81 H Blood Pressure [Right Arm] Blood Pressure Mean 104 Blood Pressure Mean [Right Arm] Blood Pressure Position Lying Pulse Oximetry 93 89 L Oxygen Delivery Method Nasal Cannula Nasal Cannula Oxygen Flow Rate 2 0 Sepsis Recent Fever Within 48 Hours No Sepsis New/Unexplained Change in Mental Status No Sepsis Action Taken by Nursing No Action Required Oxygen Flow Rate - Titration 2 Pulse Oximetry Post Tiitration 93 12/29/21 03:16 12/29/21 04:17 12/29/21 05:08 Temperature Temperature Source Pulse Rate Pulse Rate [Apical] 88 108 H 99 H Respiratory Rate 25 H 23 20 Respiratory Effort / Characteristics Respiratory Depth Respiratory Pattern Blood Pressure Blood Pressure [Right Arm] 130/88 171/109 H 165/68 H Blood Pressure Mean Blood Pressure Mean [Right Arm] 102 129 100 Blood Pressure Position Pulse Oximetry 89 L 91 95 Oxygen Delivery Method Oxymask Oxymask Oxymask Oxygen Flow Rate 6 6 15 Sepsis Recent Fever Within 48 Hours Sepsis New/Unexplained Change in Mental Status Sepsis Action Taken by Nursing Oxygen Flow Rate - Titration Pulse Oximetry Post Tiitration 12/29/21 05:30 12/29/21 06:02 12/29/21 07:31 Temperature Temperature Source Pulse Rate Pulse Rate [Apical] 94 H 95 H 95 H Respiratory Rate 25 H 19 23 Respiratory Effort / Characteristics Respiratory Depth Respiratory Pattern Blood Pressure Blood Pressure [Right Arm] 171/73 H 173/69 H 163/77 H Blood Pressure Mean Blood Pressure Mean [Right Arm] 105 103 105 Blood Pressure Position Pulse Oximetry 95 98 94 Oxygen Delivery Method Oxymask Oxymask Oxymask Oxygen Flow Rate 15 12 Sepsis Recent Fever Within 48 Hours Sepsis New/Unexplained Change in Mental Status Sepsis Action Taken by Nursing Oxygen Flow Rate - Titration Pulse Oximetry Post Tiitration 12/29/21 08:31 Temperature Temperature Source Pulse Rate Pulse Rate [Apical] Respiratory Rate Respiratory Effort / Characteristics Respiratory Depth Respiratory Pattern Blood Pressure Blood Pressure [Right Arm] Blood Pressure Mean Blood Pressure Mean [Right Arm] Blood Pressure Position Pulse Oximetry Oxygen Delivery Method Oxymask Oxygen Flow Rate Sepsis Recent Fever Within 48 Hours Sepsis New/Unexplained Change in Mental Status Sepsis Action Taken by Nursing Oxygen Flow Rate - Titration Pulse Oximetry Post Tiitration GENERAL: alert, well appearing, well nourished, no distress, non-toxic EYE EXAM: normal conjunctiva, PERRL and EOM's grossly intact OROPHARYNX: no exudate, no erythema, lips, buccal mucosa, and tongue normal and mucous membranes are dry, edentulous NECK: supple, no nuchal rigidity, no adenopathy, non-tender LUNGS: Clear to auscultation. Normal chest wall mechanics, no w/r/r HEART: no murmurs, S1 normal and S2 normal ABDOMEN: abdomen soft, non-tender, normo-active bowel sounds, no masses, no rebound or guarding. Scattered tympany with percussion, mild distention. BACK: Back is symmetrical on inspection and there is no deformity, no midline tenderness, no CVA tenderness. SKIN: no rashes and no bruising UPPER EXTREMITIES: upper extremities are grossly normal. FROM, nml pulses b/l. LOWER EXTREMITIES: No pitting edema. FROM, nml pulses b/l. NEURO EXAM: Normal sensorium, cranial nerves II-XII grossly intact, normal speech, no gross weakness of arms, no gross weakness of legs. Gross sensation intact. Course Course 0400: Nursing staff stated pt now with vomiting. Additional meds ordered. 0424: Patient given 2.5 mg of Compazine after additional vomiting. Nursing staff states prior to the administration of Compazine patient was beginning to require increased respiratory support with increased supplemental oxygen. Patient is now up to 10 L/min on a facemask. They also state patient is now less responsive. They state this did start before the administration of Compazine. I attempted to contact the son to update him given concern for deteriorating condition, there was no answer and no voicemail. Of note, during patient's last admission in 2019 she was a full code. 0500: Discussed with Denis pt's son and POA. Patient is a full code. Administered Medications Acetaminophen (Acetaminophen 325 Mg Tab) 650 mg PO Q4H PRN PRN Reason: Pain or Fever Stop: 01/28/22 09:02 Last Admin: 12/29/21 19:24 Dose: 650 mg Documented by: [id number] Allopurinol (Allopurinol 300 Mg Tab) 300 mg PO HS SARAN Stop: 01/28/22 20:59 Last Admin: 12/30/21 19:57 Dose: 300 mg Documented by: [id number] Admin: 12/29/21 20:09 Dose: 300 mg Documented by: [id number] Doxycycline Hyclate (Doxycycline Hyclate 100 Mg Cap) 100 mg PO BID SARAN Stop: 01/05/22 12:29 Last Admin: 12/30/21 19:56 Dose: 100 mg Documented by: [id number] Admin: 12/30/21 08:56 Dose: Not Given Documented by: [id number] Admin: 12/29/21 20:09 Dose: 100 mg Documented by: [id number] Admin: 12/29/21 14:29 Dose: 100 mg Documented by: [id number] Escitalopram Oxalate (Escitalopram Oxalate 10 Mg Tab) 10 mg PO HS SARAN Stop: 01/28/22 20:59 Last Admin: 12/30/21 19:58 Dose: 10 mg Documented by: [id number] Admin: 12/29/21 20:08 Dose: 10 mg Documented by: [id number] Folic Acid (Folic Acid 1 Mg Tab) 1 mg PO QAM [facility] Stop: 01/28/22 09:02 Last Admin: 12/30/21 08:56 Dose: Not Given Documented by: [id number] Admin: 12/29/21 10:21 Dose: Not Given Documented by: [id number] Heparin Sodium (Porcine) (Heparin Sod 5,000 Unit/0.5 Ml Vial) 5,000 units SQ Q12 [facility] Stop: 01/28/22 09:02 Last Admin: 12/30/21 19:58 Dose: 5,000 units Documented by: [id number] Admin: 12/30/21 08:30 Dose: 5,000 units Documented by: [id number] Admin: 12/29/21 20:08 Dose: 5,000 units Documented by: [id number] Admin: 12/29/21 11:37 Dose: 5,000 units Documented by: [id number] Piperacillin Sod/Tazobactam (Sod 3.375 gm/ Dextrose) 115 mls @ 28.75 mls/hr IV Q8H [facility]; Protocol Stop: 01/05/22 10:59 Last Admin: 12/30/21 19:47 Dose: 28.8 mls/hr Documented by: [id number] Infusion: 12/30/21 16:46 Dose: 0 mls/hr Documented by: [id number] Admin: 12/30/21 11:36 Dose: 28.8 mls/hr Documented by: [id number] Infusion: 12/30/21 07:52 Dose: 0 mls/hr Documented by: [id number] Admin: 12/30/21 03:28 Dose: 28.8 mls/hr Documented by: [id number] Infusion: 12/29/21 23:10 Dose: 0 mls/hr Documented by: [id number] Admin: 12/29/21 18:29 Dose: 28.8 mls/hr Documented by: [id number] Infusion: 12/29/21 18:28 Dose: 0 mls/hr Documented by: [id number] Infusion: 12/29/21 14:29 Dose: 28.8 mls/hr Documented by: [id number] Infusion: 12/29/21 12:52 Dose: 0 mls/hr Documented by: [id number] Admin: 12/29/21 11:38 Dose: 28.8 mls/hr Documented by: [id number] Insulin Aspart (Insulin Aspart Per Unit) 0 units SC ACHS [facility] Stop: 01/28/22 09:02 Last Admin: 12/30/21 20:24 Dose: Not Given Documented by: [id number] Admin: 12/30/21 17:28 Dose: Not Given Documented by: [id number] Admin: 12/30/21 12:35 Dose: Not Given Documented by: [id number] Admin: 12/30/21 08:00 Dose: Not Given Documented by: [id number] Admin: 12/29/21 20:50 Dose: Not Given Documented by: [id number] Admin: 12/29/21 17:10 Dose: Not Given Documented by: [id number] Cosigned by: [id number] Admin: 12/29/21 12:45 Dose: Not Given Documented by: [id number] Cosigned by: [id number] Admin: 12/29/21 10:20 Dose: Not Given Documented by: [id number] Cosigned by: [id number] Levothyroxine Sodium (Levothyroxine Sodium 75 Mcg Tablet) 75 mcg PO DAILYBB [facility] Stop: 01/28/22 09:14 Last Admin: 12/30/21 07:52 Dose: Not Given Documented by: [id number] Admin: 12/29/21 11:37 Dose: 75 mcg Documented by: [id number] Magnesium Oxide (Magnesium Oxide 400 Mg Tab) 400 mg PO BID [facility] Stop: 01/29/22 09:44 Last Admin: 12/30/21 19:57 Dose: 400 mg Documented by: [id number] Admin: 12/30/21 11:35 Dose: 400 mg Documented by: [id number] Metoprolol Succinate (Metoprolol Succ 50mg Ext Rel Tab) 50 mg PO QAM [facility] Stop: 01/28/22 09:02 Last Admin: 12/30/21 11:51 Dose: 50 mg Documented by: [id number] Admin: 12/29/21 11:37 Dose: 50 mg Documented by: [id number] Pantoprazole Sodium (Pantoprazole 40 Mg Tab) 40 mg PO BID [facility]; Protocol Stop: 01/28/22 20:59 Last Admin: 12/30/21 19:56 Dose: 40 mg Documented by: [id number] Admin: 12/30/21 08:57 Dose: Not Given Documented by: [id number] Admin: 12/29/21 20:10 Dose: 40 mg Documented by: [id number] Discontinued Medications Sodium Chloride (Nss 1000ml) 1,000 mls @ 200 mls/hr IV .Q5H [facility] Stop: 01/28/22 02:44 Last Admin: 12/29/21 09:18 Dose: Not Given Documented by: [id number] Infusion: 12/29/21 09:18 Dose: 0 mls/hr Documented by: [id number] Admin: 12/29/21 03:13 Dose: 200 mls/hr Documented by: [id number] Prochlorperazine 2.5 mg/ (Syringe) 4.5 mls @ 5 mls/min IV ONE ONE Stop: 12/29/21 04:04 Last Admin: 12/29/21 04:10 Dose: 5 mls/min Documented by: [id number] Piperacillin Sod/Tazobactam Sod (Zosyn) 4.5 gm in 120 mls @ 240 mls/hr IV NOW ONE Stop: 12/29/21 05:36 Last Infusion: 12/29/21 06:18 Dose: 0 mls/hr Documented by: [id number] Admin: 12/29/21 05:46 Dose: 240 mls/hr Documented by: [id number] Potassium Chloride (K Lázaro / Wtr) 10 meq in 100 mls @ 100 mls/hr IV Q1H [facility]; Protocol Stop: 12/29/21 08:05 Last Infusion: 12/29/21 11:36 Dose: 0 mls/hr Documented by: [id number] Admin: 12/29/21 09:27 Dose: 100 mls/hr Documented by: [id number] Sodium Chloride (Nss 1000ml) 1,000 mls @ 100 mls/hr IV .Q10H [facility] Stop: 01/28/22 09:02 Last Infusion: 12/29/21 12:52 Dose: 0 mls/hr Documented by: [id number] Admin: 12/29/21 09:27 Dose: 100 mls/hr Documented by: [id number] Ioversol (Optiray 320 100ml) 100 ml IV ONCE ONE Stop: 12/29/21 05:07 Last Admin: 12/29/21 05:06 Dose: 93 ml Documented by: [id number] Miscellaneous (Patient's Height And/Or Weight Needed) 1 ea N/A Q2H [facility] Stop: 12/29/21 19:16 Last Admin: 12/29/21 09:28 Dose: 1 ea Documented by: [id number] Ondansetron HCl (Ondansetron Inj 2 Mg/Ml 2 Ml Vial) 4 mg IV NOW STA Stop: 12/29/21 03:13 Last Admin: 12/29/21 03:14 Dose: 4 mg Documented by: [id number] Ondansetron HCl (Ondansetron Inj 2 Mg/Ml 2 Ml Vial) Confirm Administered Dose 4 mg .ROUTE .STK-MED ONE Stop: 12/29/21 03:14 Last Admin: 12/29/21 03:14 Dose: Not Given Documented by: [id number] Ondansetron HCl (Ondansetron Inj 2 Mg/Ml 2 Ml Vial) 4 mg IV NOW STA Stop: 12/29/21 03:48 Last Admin: 12/29/21 03:55 Dose: 4 mg Documented by: [id number] Potassium Chloride (Potassium Chloride 20 Meq/15 Ml Udc) 20 meq PO NOW STA Stop: 12/29/21 12:29 Last Admin: 12/29/21 14:28 Dose: 20 meq Documented by: [id number] Prochlorperazine (Prochlorperazine 5 Mg/Ml 2 Ml Vial) Confirm Administered Dose 10 mg .ROUTE .STK-MED ONE Stop: 12/29/21 04:07 Last Admin: 12/29/21 05:43 Dose: Not Given Documented by: [id number] Critical Care Time Critical Care Time: Yes Total Critical Care Time: 44 Critical care of 44 min performed to assess and manage high likelihood of life- threatening hypoxia, involving labs and imaging performed with assessment to evaluate hypoxia, abdominal pain, vomiting diagnosis with frequent reassessment. This time includes bedside time, treatment discussions with patient/family/consultants, documentation time and excludes procedure time. Medical Decision Making Differential Diagnosis Differential: Gastroenteritis, Food Borne, Esophageal Perforation, , Electrolyte Abnormality, Dehydration, Intraabdominal Infection, UTI /Pyelonephritis, Bowel Obstruction, Biliary Pathology, amongst other pathology entertained. Medical Records Attestation: I reviewed the patient's medical records. Home Medications Current Medication List: was personally reviewed by me Laboratory Data Attestation: I reviewed the patient's lab results. Result diagrams: 12/30/21 05:18 12/30/21 05:18 Lab Results 12/29/21 12/29/21 12/29/21 Range/Units 02:26 02:26 03:16 WBC 8.57 (4.8-10.8) K/uL RBC 3.72 L (4.2-5.4) M/uL Hgb 12.2 (12.0-16.0) g/dL Hct 36.5 L (37-47) % MCV 98.1 (80-100) fL MCH 32.8 (25-34) pg MCHC 33.4 (32-36) g/dL RDW Std Deviation 58.3 H (36.4-46.3) fL RDW Coeff of Mis 16.2 H (11.5-14.5) % Plt Count 357 (130-400) K/uL MPV 10.5 H (7.4-10.4) fL Immature Gran % (Auto) 0.2 % Neut % (Auto) 79.7 % Lymph % (Auto) 13.4 % Cochran % (Auto) 4.2 % Eos % (Auto) 2.1 % Baso % (Auto) 0.4 % Neut # (Auto) 6.83 H (1.4-6.5) K/uL Lymph # (Auto) 1.15 L (1.2-3.4) K/uL Cochran # (Auto) 0.36 (0.11-0.59) K/uL Eos # (Auto) 0.18 (0-0.5) K/uL Baso # (Auto) 0.03 (0-0.2) K/uL Immature Gran # (Auto) 0.02 (0.00-0.02) K/uL Sodium 142 (136-145) mmol/L Potassium 3.4 L (3.5-5.1) mmol/L Chloride 108 H (98-107) mmol/L Carbon Dioxide 23 (21-32) mmol/L Anion Gap 11 (3-11) BUN 34 H (6-23) mg/dl Creatinine 1.47 H (0.6-1.2) mg/dl Est Cr Clr Drug Dosing Not Reportable Est GFR ( Amer) 36.3 ml/min Est GFR (Non-Af Amer) 31.3 ml/min BUN/Creatinine Ratio 23.1 H (10-20) Glucose 135 H (70-99(Fasting)) mg/dl Lactate 1.2 (0.4-2.0) mmol/L Calcium 9.4 (8.5-10.1) mg/dl Magnesium 1.8 (1.7-2.4) mg/dl Total Bilirubin 0.3 (0.2-1.0) mg/dl AST 26 (13-39) U/L ALT 21 (7-52) U/L Alkaline Phosphatase 91 (34-104) U/L Troponin I 0.03 (0-0.04) ng/ml Total Protein 7.0 (6.0-8.3) gm/dl Albumin 4.2 (3.4-5.0) gm/dl Globulin 2.8 (2.5-4.0) gm/dl Albumin/Globulin Ratio 1.5 (0.9-2) Lipase 24 (11-82) U/L SARS-CoV-2, RNA, NAAT (NEGATIVE) 12/29/21 Range/Units 06:04 WBC (4.8-10.8) K/uL RBC (4.2-5.4) M/uL Hgb (12.0-16.0) g/dL Hct (37-47) % MCV (80-100) fL MCH (25-34) pg MCHC (32-36) g/dL RDW Std Deviation (36.4-46.3) fL RDW Coeff of Mis (11.5-14.5) % Plt Count (130-400) K/uL MPV (7.4-10.4) fL Immature Gran % (Auto) % Neut % (Auto) % Lymph % (Auto) % Cochran % (Auto) % Eos % (Auto) % Baso % (Auto) % Neut # (Auto) (1.4-6.5) K/uL Lymph # (Auto) (1.2-3.4) K/uL Cochran # (Auto) (0.11-0.59) K/uL Eos # (Auto) (0-0.5) K/uL Baso # (Auto) (0-0.2) K/uL Immature Gran # (Auto) (0.00-0.02) K/uL Sodium (136-145) mmol/L Potassium (3.5-5.1) mmol/L Chloride (98-107) mmol/L Carbon Dioxide (21-32) mmol/L Anion Gap (3-11) BUN (6-23) mg/dl Creatinine (0.6-1.2) mg/dl Est Cr Clr Drug Dosing Est GFR ( Amer) ml/min Est GFR (Non-Af Amer) ml/min BUN/Creatinine Ratio (10-20) Glucose (70-99(Fasting)) mg/dl Lactate (0.4-2.0) mmol/L Calcium (8.5-10.1) mg/dl Magnesium (1.7-2.4) mg/dl Total Bilirubin (0.2-1.0) mg/dl AST (13-39) U/L ALT (7-52) U/L Alkaline Phosphatase (34-104) U/L Troponin I (0-0.04) ng/ml Total Protein (6.0-8.3) gm/dl Albumin (3.4-5.0) gm/dl Globulin (2.5-4.0) gm/dl Albumin/Globulin Ratio (0.9-2) Lipase (11-82) U/L SARS-CoV-2, RNA, NAAT NEGATIVE (NEGATIVE) Imaging Data Radiologist's Impression: Chest/Abdomen X-ray 12/29/21 02:44 XR abdomen 2V w PA chest CLINICAL HISTORY: sob, constipation TECHNIQUE: 2 views of the abdomen were obtained. A single view of the chest was obtained. Comparison: Comparison is made to chest 2 views 10/13/2020 FINDINGS: No lines and tubes are seen. The cardiomediastinal silhouette is normal. Bilateral airspace opacities are seen. No evidence of pleural effusion or pneumothorax. The osseous structures are grossly unremarkable. Multiple gas-distended loops of large bowel are seen. The small bowel gas pattern appears nonobstructive. Small stool burden is seen. IMPRESSION: 1. Prominent gas distended loops of large bowel without evidence of small bowel obstruction. 2. Bilateral airspace opacities are seen which may represent atelectasis, pne umonia, and/or aspiration. ACT 112: Negative or not required by law. Electronically signed by: Chapin Huff M.D. 12/29/2021 7:37 AM Abdomen/Pelvis CT 12/29/21 03:11 CT OF THE ABDOMEN AND PELVIS WITH CONTRAST CLINICAL HISTORY: Abdominal pain, nausea and vomiting. COMPARISON STUDY: CT of the abdomen and pelvis October 04, 2020. Abdominal series December 29, 2021. TECHNIQUE: Following IV administration of 93 mL of Optiray, axial images of the abdomen and pelvis were obtained from the lung bases to the proximal femurs. Images were reviewed in the axial, sagittal, and coronal planes. IV contrast was administered without complication. Automated exposure control was utilized for the study. A dose lowering technique was utilized adhering to the principles of ALARA. CT DOSE: 486.30 mGy.cm FINDINGS: Within visualized portions of the lung bases, note is made of asymmetric interlobular septal thickening and airspace opacities within the right middle and right lower lobes. No pneumatosis, free air or portal venous gas is present. Small hiatal hernia. The liver, spleen, right adrenal gland and pancreas are unremarkable. Left adrenal nodule is unchanged since CT of October 04, 2020. This is likely benign. Water attenuation bilateral renal lesions reflect cysts. There are numerous subcentimeter renal lesions which are too small to characterize. Multiple bilateral renal calculi are present. These measure up to 7 mm. No ureteral calculi are present. There is no hydronephrosis. Moderate atherosclerotic plaque of the abdominal aorta and branch vessels is present. There is no evidence for a bowel obstruction. Colonic diverticulosis is noted without evidence for acute diverticulitis. Appendix is not visualized. No lymphadenopathy or ascites. No acute fracture or suspicious lesion is identified within the visualized skeletal structures. IMPRESSION: 1. No acute process within the abdomen or pelvis. 2. Asymmetric interlobular septal thickening and airspace opacities within the right middle and right lower lobes. Interlobular septal thickening suggests interstitial pulmonary edema. The airspace opacities could reflect alveolar edema, pneumonia or aspiration pneumonitis. 3. Colonic diverticulosis. No evidence for acute diverticulitis. No bowel obstru ction. No bowel wall thickening. ACT 112: Negative or not required by law. Electronically signed by: Andrés aCraballo M.D. 12/29/2021 8:[address] abdomen pelvis with contrast: Impression: There are multifocal inflammatory densities seen in the right lung, suggestive of pneumonia. Small high hiatus hernia. No hydronephrosis. Bilateral nonobstructing renal stones, the largest one measuring up to 7 mm in diameter. Radiologist: Jv Sorenson MD ECG Data Attestation: I personally reviewed and interpreted this ECG as follows: Indication: + abdominal pain Rate (beats per minute): 81 Rhythm: + normal sinus ECG Intervals/blocks: + First degree AV block, + Normal QRS and + Normal QT ECG [place]: + Normal ECG ST segments: + Normal ST segments MDM Narrative This is an elderly female who presents via ems with c/o abdominal pain, constipation, and n/v. EMS reported pt was hypoxia and started NC at 2 lpm. Patient denied SOB. Denied prior hx of pulm issues. VS stable and was well appearing initially during evaluation. Patient then had recurrent vomiting and oxygen levels began to drop. She was converted to an oxymask at 10-12 lpm to maintain saturations. CT did not reveal any acute GI pathology despite complaints, however it did confirm suspicion of RLL pneumonia likely from aspiration. I did call and update the son, we also discussed code status given tenuous condition. CAse was discussed with the hospitalist for additional evaluation and mgmt and pt covered with zosyn. Patient did report feeling improved after vomiting and no recurrence while in the ER. An order was placed for continuous cardiac monitoring. The monitor shows a rate of _78_ with _normal sinus__ rhythm. Impression & Plan Abdominal pain, Nausea & vomiting, Aspiration pneumonia, Hypoxia Discharge Plan Visit Data Chief Complaint: Shortness of Breath/Dyspnea Stated Complaint: SOB ED Provider: Olga Graves Discharge Problem: Abdominal pain, Nausea & vomiting, Aspiration pneumonia, Hypoxia Patient Disposition: Admitted As Inpatient Discharge Instructions Interventions: ED Discharge Assessment Last Done: 12/29/21 08:31 Discharge Problem: Abdominal pain Qualifiers: Abdominal location: generalized Qualified Code(s): R10.84 - Generalized abdominal pain Nausea & vomiting Qualifiers: Vomiting type: unspecified Qualified Code(s): R11.2 - Nausea with vomiting, unspecified Aspiration pneumonia Qualifiers: Aspiration pneumonia type: due to vomit Laterality: right Lung location: lower lobe of lung Qualified Code(s): J69.0 - Pneumonitis due to inhalation of food and vomit
[2021-12-29] MEDS ORDERED: PROCHLORPERAZINE 2.5 MG in SYRINGE 4 ML IV ONE (04:03)
[2021-12-29] MEDS ORDERED: PROCHLORPERAZINE 5 MG/ML 2 ML VIAL ONE (04:06)
[2021-12-29] MEDS ORDERED: OPTIRAY 320 100ml IV ONE (05:06)
[2021-12-29] MEDS ORDERED: PIPERACILLIN/TAZOBACTAM 4.5 GM/120 ML BAG IV ONE (05:07)
[2021-12-29] MEDS ORDERED: PIPERACILL/TAZOBAC CONSULT ACTIVE PRN (05:07)
[2021-12-29] MEDS ORDERED: POTASSIUM CHLORIDE / WTR 10 MEQ/100 ML PLCT IV STA (07:06)
--- NOTE | 2021-12-29 07:39 | XRay Report ---
XR abdomen 2V w PA chest CLINICAL HISTORY: sob, constipation TECHNIQUE: 2 views of the abdomen were obtained. A single view of the chest was obtained. Comparison: Comparison is made to chest 2 views 10/13/2020 FINDINGS: No lines and tubes are seen. The cardiomediastinal silhouette is normal. Bilateral airspace opacities are seen. No evidence of pleural effusion or pneumothorax. The osseous structures are grossly unremarkable. Multiple gas-distended loops of large bowel are seen . The small bowel gas pattern appears nonobstructive. Small stool burden is seen. IMPRESSION: 1. Prominent gas distended loops of large bowel without evidence of small bowel obstruction. 2. Bilateral airspace opacities are seen which may represent atelectasis, pneumonia, and/or aspirati on. ACT 112: Negative or not required by law. Electronically signed by: Chapin Huff M.D. 12/29/2021 7:37 AM
[2021-12-29 07:44] LABS: D Dimer 2140 ug/L FEU (0-500)
--- NOTE | 2021-12-29 08:19 | CT Scan Report ---
CT OF THE ABDOMEN AND PELVIS WITH CONTRAST CLINICAL HISTORY: Abdominal pain, nausea and vomiting. COMPARISON STUDY: CT of the abdomen and pelvis October 04, 2020. Abdominal series December 29, 2021. TECHNIQUE: Following IV administration of 93 mL of Optiray, axial images of the abdomen and pelvis we re obtained from the lung bases to the proximal femurs. Images were reviewed in the axial, sagittal, and coronal planes. IV contrast was administered without complication. Automated exposure control wa s utilized for the study. A dose lowering technique was utilized adhering to the principles of ALARA . CT DOSE: 486.30 mGy.cm FINDINGS: Within visualized portions of the lung bases, note is made of asymmetric interlobular septa l thickening and airspace opacities within the right middle and right lower lobes. No pneumatosis, fr ee air or portal venous gas is present. Small hiatal hernia. The liver, spleen, right adrenal gland a nd pancreas are unremarkable. Left adrenal nodule is unchanged since CT of October 04, 2020. This is likely benign. Water attenuation bilateral renal lesions reflect cysts. There are numerous subcentim eter renal lesions which are too small to characterize. Multiple bilateral renal calculi are present. These measure up to 7 mm. No ureteral calculi are present. There is no hydronephrosis. Moderate athe rosclerotic plaque of the abdominal aorta and branch vessels is present. There is no evidence for a b owel obstruction. Colonic diverticulosis is noted without evidence for acute diverticulitis. Appendix is not visualized. No lymphadenopathy or ascites. No acute fracture or suspicious lesion is identifi ed within the visualized skeletal structures. IMPRESSION: 1. No acute process within the abdomen or pelvis. 2. Asymmetric interlobular septal thickening and airspace opacities within the right middle and right lower lobes. Interlobular septal thickening suggests interstitial pulmonary edema. The airspace opac ities could reflect alveolar edema, pneumonia or aspiration pneumonitis. 3. Colonic diverticulosis. No evidence for acute diverticulitis. No bowel obstruction. No bowel wall thickening. ACT 112: Negative or not required by law. Electronically signed by: Andrés Caraballo M.D. 12/29/2021 8:17 AM
[2021-12-29] MEDS ORDERED: ACETAMINOPHEN 325 MG TAB PO PRN (09:03)
[2021-12-29] MEDS ORDERED: DOCUSATE SODIUM 100 MG CAP PO PRN (09:03)
[2021-12-29] MEDS ORDERED: SODIUM CHLORIDE 0.9% 1000ML 1,000 ML IV SCH (09:03)
[2021-12-29] MEDS ORDERED: ONDANSETRON INJ 2 MG/ML 2 ML VIAL IV PRN (09:03)
[2021-12-29] MEDS ORDERED: NITROGLYCERIN SL 0.4 MG/TAB TAB SL PRN (09:03)
[2021-12-29] MEDS ORDERED: POLYETHYLENE (MIRALAX) 17 GM PACK PO PRN (09:03)
--- NOTE | 2021-12-29 09:08 | CT Scan Report ---
CT OF THE CHEST WITHOUT IV CONTRAST CLINICAL HISTORY: Aspiration. Hypoxia. COMPARISON STUDY: Chest CT February 04, 2017. Chest radiograph performed earlier today. CT DOSE: 584.58 mGy.cm TECHNIQUE: Axial images of the chest were obtained without IV contrast. Images were reviewed in the axial, sagittal, and coronal planes. IV contrast was not administered for this examination. Automat ed exposure control was utilized for the study. A dose lowering technique was utilized adhering to t he principles of ALARA. FINDINGS: No enlarged axillary, mediastinal or hilar lymph nodes are present. Mild cardiomegaly is n oted. There is no pericardial effusion. No pneumothorax or pleural effusion is present. Central airwa ys are patent. Lungs are suboptimally assessed due to respiratory motion. Note is made of interlobula r septal thickening, greater within the right lung. There are also moderate multifocal airspace opaci ties, greater within the right lung. No lobar consolidation is present. No acute fracture or suspicio us lesion within the visualized skeletal structures. A low-attenuation left adrenal nodule is unchang ed since CT of October 04, 2020. This favors an adenoma. IMPRESSION: 1. Interlobular septal thickening and moderate multifocal airspace opacities, greater within the righ t lung. Interlobular septal thickening favors pulmonary edema. The airspace opacities could reflect a lveolar edema, pneumonia or aspiration pneumonitis. 2. Cardiomegaly. 3. No pleural effusion. ACT 112: Negative or not required by law. Electronically signed by: Andrés Caraballo M.D. 12/29/2021 9:07 AM
[2021-12-29] MEDS ORDERED: PATIENT'S HEIGHT AND/OR WEIGHT NEEDED SCH (09:15)
--- NOTE | 2021-12-29 09:15 | History and Physical Report ---
DATE OF ADMISSION: 12/29/2021. CHIEF COMPLAINT: Shortness of breath, abdominal discomfort. 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 The patient is a poor historian. The patient is speaking in muffled voice, difficult to understand, but seems to be alert and obeys simple commands, seems to understand simple questions. She says she has some abdominal pain and denies any headache, denies any chest pain. She says she is not walking. She says her son takes care of her, but could not get much history from the patient. I tried to call the son, but could not able to reach him. ER physician was able to talk to her son, seems the patient has some nausea, vomiting and she complained of shortness of breath. When EMS arrived, she was saturating 89% with oxygen saturation improved and she was brought to the hospital. The patient is seemed to be in abdominal discomfort and the labs were done, which were unremarkable. CT of abdomen and pelvis was ordered and when she went to CAT scan, she was requiring more oxygen and CT scan of the abdomen and pelvis preliminary report showing multifocal inflammatory density seen in the right lung suggestive of pneumonia and also bilateral nonobstructing renal stones, largest one measuring 7 mm in diameter. The patient was started on antibiotic, Zosyn in the ER, hemodynamically stable. ALLERGIES: MIRTAZAPINE, MORPHINE, OXYCODONE. PAST MEDICAL HISTORY: As mentioned above. PAST SURGICAL HISTORY: Cystoscopy, ERCP, hemorrhoidectomy, adenoidectomy, tonsillectomy, cervical spine surgery, hysterectomy, right carpal tunnel surgery, right cataract removal, flexible sigmoidoscopy, cholecystectomy. MEDICATIONS: The patient is on Tylenol Extra Strength p.r.n., allopurinol 300 mg p.o. at bedtime, Benadryl 25 mg p.o. at bedtime, Colace 100 mg p.o. daily p.r.n., Lexapro 10 mg p.o. at bedtime, folic acid 1 mg p.o. daily, Lasix 20 mg p.o. daily p.r.n., levothyroxine 75 mcg p.o. daily, lisinopril 5 mg p.o. a.m., metoprolol succinate 50 mg p.o. a.m., omeprazole 40 mg p.o. b.i.d. FAMILY HISTORY: Significant for father had lung cancer, mother had lung cancer. Sister has skin cancer, daughter has thyroid disorder. SOCIAL HISTORY: , currently lives with her son. Former smoker, smoked until she was 38-year-old as per [employer]. No alcohol use. No drug use. REVIEW OF SYSTEMS: Could not get complete review of symptoms. The patient is a poor historian. PHYSICAL EXAMINATION: GENERAL: Patient is alert and awake, not in acute distress, old and frail. VITAL SIGNS: Temperature 36.9, pulse 94, respiratory rate 19, blood pressure 173/69, oxygen 98% on OxyMask at 4 liters. HEENT: Head is atraumatic. No facial droop seen. Oral mucosa somewhat dry. NECK: No JVD. No neck masses. CARDIOVASCULAR: S1 and S2 heard. Regular rate and rhythm. No murmur, no gallop. RESPIRATORY SYSTEM: Normal AP diameter. No accessory muscle use. No wheezing, no crackles. ABDOMEN: Soft, bowel sounds present. Mild abdominal discomfort. Mild guarding, no rigidity. No distention. CENTRAL NERVOUS SYSTEM: Alert and awake. Obeys simple commands. Moves extremities. No facial droop. EXTREMITIES: No edema, no erythema seen. LABORATORY DATA: WBC 8.5, hemoglobin 12.2, hematocrit 36.5, platelets 357. Sodium 142, potassium 3.4, chloride 108, bicarbonate 23, BUN 11, creatinine 1.4, serum glucose 135, lactate 1.2, calcium 9.4, magnesium 1.8, total bilirubin 0.3, AST 26, ALT 21, alkaline phosphatase 91. Troponin I 0.03, lipase 24. SARS-CoV-2 rapid test unremarkable. IMAGING DATA: Chest x-ray mild bibasilar infiltrates. CT of abdomen and pelvis with contrast, multifocal inflammatory densities seen in the right lung suggestive of pneumonia. Small hiatal hernia. No hydronephrosis, bilateral nonobstructing renal stones, larger stone measuring up to 7 mm in diameter on preliminary report. EKG: Sinus rhythm with first-degree AV block at a rate of 81, no significant change was found. ASSESSMENT AND PLAN: This is an 89-year-old female who is complaining of some shortness of breath and abdominal discomfort. 1. Shortness of breath, looks like possible aspiration pneumonia. This patient has nausea, and vomiting. Hypoxia. Requiring oxygen. Possible aspiration pneumonia, started Zosyn in the ER, which will be continued. Placed on IV fluids. Clear liquid diet. Monitor in the tele floor. Speech evaluation. We will also get a CT of the chest to get a better evaluation.Also d dimer. 2. Abdominal discomfort. CT abdomen and pelvis preliminary report is unremarkable except for showing bilateral nonobstructing kidney stones. We will follow the final report. If any concern, we will get Urology consult. We will follow the urinalysis. Currently, she is on Zosyn and fluids and clear liquid diet. 3. History of diabetes, not on any medication, placed on insulin sliding scale. Follow HbA1c levels. 4. Chronic kidney disease stage III. Baseline creatinine 1.3, current creatinine 1.4, we will follow the repeat labs. Avoid nephrotoxic agents. 5. Hypokalemia. We will replace. 6. Hypertension. Continue metoprolol succinate. Holding lisinopril. We will monitor the blood pressure. 7. History of gout. Continue allopurinol. 8. History of gastroesophageal reflux disease. Continue omeprazole. 9. History of hypothyroidism. Continue Synthroid. 10. History of depression, generalized anxiety disorder. Continue her Lexapro. 11.Remote history of bladder cancer, 12 history of Alzheimer's disease and mild dementia, monitor for any delirium. 13. History of paroxysmal atrial tachycardia. Continue metoprolol succinate. 14. Deep venous thrombosis prophylaxis. Placed on heparin subcutaneously. DISPOSITION: Closely monitor in the tele floor. Level 1 full code. PT/OT prior to discharge. Social service to help with discharge planning. Expect to discharge home and follow with family doctor. Tried to reach her son was not able to reach him, but ER was able to talk to the son and as per the ER son wants her to be full code. Job ID: [id number] [facility]
[2021-12-29] MEDS: INSULIN ASPART PER UNIT SC SCH ×4 (10:20→20:50)
[2021-12-29] MEDS: FOLIC ACID 1 MG TAB PO SCH (10:21)
[2021-12-29 10:37] LABS: Appearance Urine Clear (Clear); Bacteria Urine Automated Negative (Negative); Bilirubin Urine Negative (Negative); Blood Urine Trace (Negative); Color Urine Yellow; Epithelial Cell Urine Auto >30 /lpf (0-5); Glucose Urine UA Negative (Negative); Ketones Urine Negative (Negative); Leukocyte Esterase Urine Negative (Negative); Nitrite Urine Negative (Negative); Protein Urine 2+ (Negative); RBC Urine Automated 0-4 /hpf (0-4); Specific Gravity Urine 1.031 (1.000-1.030); Urobilinogen Urine Negative (Negative)
--- NOTE | 2021-12-29 11:29 | Ultrasound Report ---
BILATERAL LOWER EXTREMITY VENOUS DOPPLER HISTORY: Acute pain and swelling of the lower legs r/o DVT COMPARISON STUDY: None. FINDINGS: There is normal compressibility, flow, and augmentation within the bilateral lower extremit y deep venous systems. IMPRESSION: No DVT within the right or left lower extremity. ACT 112: Negative or not required by law. Electronically signed by: Terrell Hastings M.D. 12/29/2021 11:28 AM
[2021-12-29] MEDS: LEVOTHYROXINE SODIUM 75 MCG TABLET PO SCH (11:37)
[2021-12-29] MEDS: HEPARIN SOD 5,000 UNIT/0.5 ML VIAL SQ SCH ×2 (11:37→20:08)
[2021-12-29] MEDS: METOPROLOL SUCC 50MG EXT REL TAB PO SCH (11:37)
[2021-12-29] MEDS: PIPERACILLIN/TAZOBACTAM 3.375 GM in DEXTROSE 5% 100 ML IV SCH ×2 (11:38→18:29)
[2021-12-29] MEDS ORDERED: POTASSIUM CHLORIDE 20 MEQ/15 ML UDC PO STA (12:28)
--- NOTE | 2021-12-29 13:49 | Nuclear Medicine Report ---
NM pul perfusion CLINICAL HISTORY: hypoxia, r/o PE Technique: Perfusion imaging was performed in multiple projections after the intravenous injection of 5.5 mCi of Tc-99m labeled macroaggregated albumin (MAA). Comparison: Comparison is made to CT chest 12/29/2021 FINDINGS/IMPRESSION: Homogeneous perfusion was seen bilaterally. Low probability of pulmonary emboli sm. ACT 112: Negative or not required by law. Electronically signed by: Chapin Huff M.D. 12/29/2021 1:48 PM
[2021-12-29] MEDS: DOXYCYCLINE HYCLATE 100 MG CAP PO SCH ×2 (14:29→20:09)
[2021-12-29] MEDS: ESCITALOPRAM OXALATE 10 MG TAB PO SCH (20:08)
[2021-12-29] MEDS: allopurinoL 300 MG TAB PO SCH (20:09)
[2021-12-29] MEDS: PANTOprazole 40 MG TAB PO SCH (20:10)
--- NOTE | 2021-12-29 22:09 | Electrocardiogram Report ---
Test Reason : Blood Pressure : / mmHG Vent. Rate : 081 BPM Atrial Rate : 081 BPM P-R Int : 224 ms QRS Dur : 080 ms QT Int : 384 ms P-R-T Axes : 053 007 045 degrees QTc Int : 446 ms Sinus rhythm with 1st degree A-V block Otherwise normal ECG When compared with ECG of 01-OCT-2020 12:32, No significant change was found Confirmed by Ilya Campbell ([id number]) on 12/29/2021 10:08:40 PM Referred By: REFERRED SELF Confirmed By:Ilya Campbell
[2021-12-30] MEDS: PIPERACILLIN/TAZOBACTAM 3.375 GM in DEXTROSE 5% 100 ML IV SCH ×3 (03:28→19:47)
[2021-12-30 06:13] LABS: Basophils # (auto) 0.03 K/uL (0-0.2); Basophils % (auto) 0.3 %; Eosinophils # (auto) 0.24 K/uL (0-0.5); Eosinophils % (auto) 2.2 %; Hematocrit (blood only) 30.8 % (37-47); Hemoglobin 10.1 g/dL (12.0-16.0); Immature Granulocytes # (auto) 0.02 K/uL (0.00-0.02); Immature Granulocytes % (auto) 0.2 %; Lymphocytes # (auto) 1.43 K/uL (1.2-3.4); Lymphocytes % (auto) 13.1 %; Mean Corpuscular Hemoglobin 32.2 pg (25-34); Mean Corpuscular Hgb Conc 32.8 g/dL (32-36); Mean Corpuscular Volume 98.1 fL (80-100); Mean Platelet Volume 10.7 fL (7.4-10.4); Monocytes # (auto) 0.47 K/uL (0.11-0.59); Monocytes % (auto) 4.3 %; Neutrophils # (auto) 8.73 K/uL (1.4-6.5); Neutrophils % (auto) 79.9 %; Platelet Count 311 K/uL (130-400); RDW Coefficient of Variation 16.1 % (11.5-14.5); RDW Standard Deviation 58.1 fL (36.4-46.3); Red Blood Count 3.14 M/uL (4.2-5.4); White Blood Count 10.92 K/uL (4.8-10.8)
[2021-12-30 06:28] LABS: BUN Creatinine Ratio 19.5 (10-20); Creatinine Clr Calc Pharmacy 21.2 ml/min; Est GFR (African American) 35.7 ml/min; Est GFR (Non-African American) 30.8 ml/min; Magnesium 1.5 mg/dl (1.7-2.4); Potassium 3.5 mmol/L (3.5-5.1)
[2021-12-30 07:43] LABS: Estimated Average Glucose 137 mg/dl; Hemoglobin A1C 6.4 % (4.5-5.6)
[2021-12-30] MEDS: LEVOTHYROXINE SODIUM 75 MCG TABLET PO SCH (07:52)
[2021-12-30] MEDS: INSULIN ASPART PER UNIT SC SCH ×4 (08:00→20:24)
[2021-12-30] MEDS: HEPARIN SOD 5,000 UNIT/0.5 ML VIAL SQ SCH ×2 (08:30→19:58)
[2021-12-30] MEDS: FOLIC ACID 1 MG TAB PO SCH (08:56)
[2021-12-30] MEDS: METOPROLOL SUCC 50MG EXT REL TAB PO SCH ×2 (08:56→11:51)
[2021-12-30] MEDS: DOXYCYCLINE HYCLATE 100 MG CAP PO SCH ×2 (08:56→19:56)
[2021-12-30] MEDS: PANTOprazole 40 MG TAB PO SCH ×2 (08:57→19:56)
[2021-12-30] MEDS: MAGNESIUM OXIDE 400 MG TAB PO SCH ×2 (11:35→19:57)
--- NOTE | 2021-12-30 16:20 | Hospitalist Progress Note ---
Date of Service December 30, 2021 Assessment & Plan (1) Pneumonia: Plan: ASSESSMENT AND PLAN: This is an 89-year-old female who is complaining of some shortness of breath and abdominal discomfort. 1. ACUTE HYPOXIA BILATERAL PNEUMONIA, POSSIBLE ASPIRATION SECONDARY TO VOMITING, POSSIBLE COMMUNITY ACQUIRED CT chest: 1. Interlobular septal thickening and moderate multifocal airspace opacities, greater within the right lung. Interlobular septal thickening favors pulmonary edema. The airspace opacities could reflect alveolar edema, pneumonia or aspiration pneumonitis. 2. Cardiomegaly. 3. No pleural effusion. - improving - off oxygen supplement - continue Augmentin + Doxycycline PO Day 2 Speech therapy recommendations noted - monitor closely Incentive spirometry 2. NAUSEA/VOMITING, ABDOMINAL PAIN FROM CONSTIPATION, VIRAL GASTROENTERITIS? - resolved - CT abdomen: 1. No acute process within the abdomen or pelvis. 2. Asymmetric interlobular septal thickening and airspace opacities within the right middle and right lower lobes. Interlobular septal thickening suggests interstitial pulmonary edema. The airspace opacities could reflect alveolar edema, pneumonia or aspiration pneumonitis. 3. Colonic diverticulosis. No evidence for acute diverticulitis. No bowel obstruction. No bowel wall thickening. - (+) BM on the day of admission continue laxative 3. History of diabetes, not on any medication, placed on insulin sliding scale. - A1C 6.4 4. Chronic kidney disease stage III. Baseline creatinine 1.3, current creatinine 1.4 - crea stable 5. Hypokalemia - replaced 6. Hypertension. Continue metoprolol succinate. Holding lisinopril. We will monitor the blood pressure. 7. History of gout. Continue allopurinol. 8. History of gastroesophageal reflux disease. Continue omeprazole. 9. History of hypothyroidism. Continue Synthroid. 10. History of depression, generalized anxiety disorder. Continue her Lexapro. 11.Remote history of bladder cancer, 12 history of Alzheimer's disease and mild dementia, monitor for any delirium. 13. History of paroxysmal atrial tachycardia. Continue metoprolol succinate. 14. Deep venous thrombosis prophylaxis. Placed on heparin subcutaneously. DISPOSITION: pending lives at home PT/OT eval Admission and Anticipated Discharge Date Admission Date: December 29, 2021 Subjective ff up for pneumonia, etc seen resting in bed, comfortable off oxygen supplement oriented x 2, answers most questions appropriately had confusion overnight states breathing is much better today no cough nausea, abdominal pain has resolved declining to take medications until his son arrives to give them to her no other symptoms Review of Systems Review of Systems: all noted and negative except for above Physical Exam Physical Exam: General- oriented x 2, not in distress, speaks in sentences with no effort or accessory muscle use Eyes- anicteric Neck- no JVD Lungs- clear breath sounds bilaterally, no rales/wheezes Heart- normal rate, regular rhythm; no murmurs Abdomen- normal bowel sounds, nondistended, soft, nontender Extremities- no pretibial edema, no calf tenderness Neuro- alert, oriented x2; no new gross focal neurologic deficits Skin- warm & dry Results & Data Results & Data ([facility]) Vital Signs (Past 12 Hours) Vital Signs Temp Pulse Pulse Resp BP Pulse Ox 12/30/21 15:32 37.4 C 72 20 146/69 H 91 12/30/21 15:07 66 12/30/21 11:31 37.0 C 73 17 138/64 92 12/30/21 09:03 67 12/30/21 07:46 36.5 C 81 20 126/65 100 all noted and reviewed including below
[2021-12-30] MEDS: allopurinoL 300 MG TAB PO SCH (19:57)
[2021-12-30] MEDS: ESCITALOPRAM OXALATE 10 MG TAB PO SCH (19:58)
[2021-12-31] MEDS: PIPERACILLIN/TAZOBACTAM 3.375 GM in DEXTROSE 5% 100 ML IV SCH ×2 (04:14→11:04)
[2021-12-31] MEDS: LEVOTHYROXINE SODIUM 75 MCG TABLET PO SCH (07:06)
[2021-12-31] MEDS: INSULIN ASPART PER UNIT SC SCH ×4 (07:20→21:10)
[2021-12-31] MEDS: DOXYCYCLINE HYCLATE 100 MG CAP PO SCH ×2 (07:40→21:04)
[2021-12-31] MEDS: MAGNESIUM OXIDE 400 MG TAB PO SCH ×2 (07:41→21:04)
[2021-12-31] MEDS: FOLIC ACID 1 MG TAB PO SCH (07:41)
[2021-12-31] MEDS: METOPROLOL SUCC 50MG EXT REL TAB PO SCH (07:41)
[2021-12-31] MEDS: PANTOprazole 40 MG TAB PO SCH ×2 (07:42→21:06)
[2021-12-31] MEDS: HEPARIN SOD 5,000 UNIT/0.5 ML VIAL SQ SCH ×2 (07:45→21:10)
[2021-12-31] MEDS: AMOXICILLIN/CLAVULANATE 500 MG TAB PO SCH (17:03)
--- NOTE | 2021-12-31 17:56 | Hospitalist Progress Note ---
Date of Service December 31, 2021 Assessment & Plan (1) Pneumonia: Plan: ASSESSMENT AND PLAN: This is an 89-year-old female who is complaining of some shortness of breath and abdominal discomfort. 1. ACUTE HYPOXIA BILATERAL PNEUMONIA, POSSIBLE ASPIRATION SECONDARY TO VOMITING, POSSIBLE COMMUNITY ACQUIRED CT chest: 1. Interlobular septal thickening and moderate multifocal airspace opacities, greater within the right lung. Interlobular septal thickening favors pulmonary edema. The airspace opacities could reflect alveolar edema, pneumonia or aspiration pneumonitis. 2. Cardiomegaly. 3. No pleural effusion. - improving daily - off oxygen supplement - continue Augmentin + Doxycycline PO Day 3 Speech therapy recommendations noted - monitor closely Incentive spirometry 2. NAUSEA/VOMITING, ABDOMINAL PAIN FROM CONSTIPATION, VIRAL GASTROENTERITIS? - resolved - CT abdomen: 1. No acute process within the abdomen or pelvis. 2. Asymmetric interlobular septal thickening and airspace opacities within the right middle and right lower lobes. Interlobular septal thickening suggests interstitial pulmonary edema. The airspace opacities could reflect alveolar edema, pneumonia or aspiration pneumonitis. 3. Colonic diverticulosis. No evidence for acute diverticulitis. No bowel obstruction. No bowel wall thickening. - (+) BM on the day of admission continue laxative 3. History of diabetes, not on any medication, placed on insulin sliding scale. - A1C 6.4 4. Chronic kidney disease stage III. Baseline creatinine 1.3, current creatinine 1.4 - crea stable 5. Hypokalemia - replaced 6. Hypertension. Continue metoprolol succinate. Holding lisinopril. We will monitor the blood pressure. 7. History of gout. Continue allopurinol. 8. History of gastroesophageal reflux disease. Continue omeprazole. 9. History of hypothyroidism. Continue Synthroid. 10. History of depression, generalized anxiety disorder. Continue her Lexapro. 11.Remote history of bladder cancer, 12 history of Alzheimer's disease and mild dementia, monitor for any delirium. 13. History of paroxysmal atrial tachycardia. Continue metoprolol succinate. 14. Deep venous thrombosis prophylaxis. Placed on heparin subcutaneously. DISPOSITION: pending lives at home PT/OT eval Admission and Anticipated Discharge Date Admission Date: December 29, 2021 Subjective Follow-up for pneumonia, etc. Seen sitting up in bed, having lunch In good spirits, oriented, answers all questions appropriately Denies nausea or vomiting, abdominal pain States breathing is better, no cough, no chest pain no other symptoms Review of Systems Review of Systems: all noted and negative except for above Physical Exam Physical Exam: General- oriented x 2, not in distress, speaks in sentences with no effort or accessory muscle use Eyes- anicteric Neck- no JVD Lungs- clear BS BL no rales/wheezes Heart- normal rate, regular rhythm; no murmurs Abdomen- normal bowel sounds, nondistended, soft, nontender Extremities- no pretibial edema, no calf tenderness Neuro- alert, oriented x 2; no gross focal neurologic deficits Skin- warm & dry Results & Data Results & Data ([facility]) Vital Signs (Past 12 Hours) Vital Signs Temp Pulse Pulse Pulse Resp BP Pulse Ox 12/31/21 15:37 37.1 C 74 16 131/69 93 12/31/21 15:01 75 12/31/21 11:17 37.3 C 77 16 166/98 H 91 12/31/21 08:43 75 12/31/21 07:32 37.1 C 89 14 168/76 H 92 all noted and reviewed including below
[2021-12-31] MEDS: allopurinoL 300 MG TAB PO SCH (21:04)
[2021-12-31] MEDS: ESCITALOPRAM OXALATE 10 MG TAB PO SCH (21:05)
[2022-01-01] MEDS: LEVOTHYROXINE SODIUM 75 MCG TABLET PO SCH (06:22)
[2022-01-01] MEDS: FOLIC ACID 1 MG TAB PO SCH (07:37)
[2022-01-01] MEDS: AMOXICILLIN/CLAVULANATE 500 MG TAB PO SCH ×2 (07:37→16:48)
[2022-01-01] MEDS: METOPROLOL SUCC 50MG EXT REL TAB PO SCH (07:37)
[2022-01-01] MEDS: PANTOprazole 40 MG TAB PO SCH (07:37)
[2022-01-01] MEDS: HEPARIN SOD 5,000 UNIT/0.5 ML VIAL SQ SCH (07:38)
[2022-01-01] MEDS: MAGNESIUM OXIDE 400 MG TAB PO SCH (07:38)
[2022-01-01] MEDS: DOXYCYCLINE HYCLATE 100 MG CAP PO SCH (07:38)
[2022-01-01] MEDS: INSULIN ASPART PER UNIT SC SCH ×3 (07:47→16:30)
--- NOTE | 2022-01-01 16:41 | Hospitalist Progress Note ---
Date of Service January 01, 2022 Assessment & Plan (1) Pneumonia: Plan: ASSESSMENT AND PLAN: This is an 89-year-old female who is complaining of some shortness of breath and abdominal discomfort. 1. ACUTE HYPOXIA BILATERAL PNEUMONIA, POSSIBLE ASPIRATION SECONDARY TO VOMITING, POSSIBLE COMMUNITY ACQUIRED CT chest: 1. Interlobular septal thickening and moderate multifocal airspace opacities, greater within the right lung. Interlobular septal thickening favors pulmonary edema. The airspace opacities could reflect alveolar edema, pneumonia or aspiration pneumonitis. 2. Cardiomegaly. 3. No pleural effusion. - improving daily - off oxygen supplement - continue Augmentin + Doxycycline PO Day 4 Speech therapy recommendations noted - monitor closely Incentive spirometry 2. NAUSEA/VOMITING, ABDOMINAL PAIN FROM CONSTIPATION, VIRAL GASTROENTERITIS? - resolved - CT abdomen: 1. No acute process within the abdomen or pelvis. 2. Asymmetric interlobular septal thickening and airspace opacities within the right middle and right lower lobes. Interlobular septal thickening suggests interstitial pulmonary edema. The airspace opacities could reflect alveolar edema, pneumonia or aspiration pneumonitis. 3. Colonic diverticulosis. No evidence for acute diverticulitis. No bowel obstruction. No bowel wall thickening. - (+) BM on the day of admission continue laxative 3. History of diabetes, not on any medication, placed on insulin sliding scale. - A1C 6.4 4. Chronic kidney disease stage III. Baseline creatinine 1.3, current creatinine 1.4 - crea stable 5. Hypokalemia - replaced 6. Hypertension. Continue metoprolol succinate. -- resume Lisinopril 7. History of gout. Continue allopurinol. 8. History of gastroesophageal reflux disease. Continue omeprazole. 9. History of hypothyroidism. Continue Synthroid. 10. History of depression, generalized anxiety disorder. Continue her Lexapro. 11.Remote history of bladder cancer, 12 history of Alzheimer's disease and mild dementia -- (+) delirium continue reorientation, delirium prevention strategies 13. History of paroxysmal atrial tachycardia. Continue metoprolol succinate. 14. Deep venous thrombosis prophylaxis. Placed on heparin subcutaneously. DISPOSITION: pending lives at home PT/OT eval Admission and Anticipated Discharge Date Admission Date: December 29, 2021 Subjective ff up for nausea/vomiting, pneumonia, etc seen resting in bed, comfortable became confused overnight on one to one seen with [employer] at bedside alert, but mostly confused not in distress states she feels better overall breathing is improving no cough no abdominal pain ,nausea/vomiting no other symptoms Review of Systems Review of Systems: all noted and negative except for above Physical Exam Physical Exam: General- oriented x 1, not in distress, speaks in sentences with no effort or accessory muscle use Eyes- anicteric Neck- no JVD Lungs- clear breath sounds bilaterally, no crackles no wheezing Heart- normal rate, regular rhythm; no murmurs Abdomen- normal bowel sounds, nondistended, soft, nontender Extremities- no pretibial edema, no calf tenderness Neuro- alert, oriented x 1; no new gross focal neurologic deficits Skin- warm & dry Results & Data Results & Data ([facility]) Vital Signs (Past 12 Hours) Vital Signs Temp Pulse Pulse Resp BP Pulse Ox 01/01/22 16:01 36.6 C 85 20 169/72 H 94 01/01/22 14:52 78 01/01/22 11:09 37.0 C 83 18 135/61 93 01/01/22 08:00 82 01/01/22 07:02 37.1 C 74 19 172/73 H 91 all noted and reviewed including below
[2022-01-01] MEDS ORDERED: lisinopril 5 MG TAB PO SCH (16:45)
--- NOTE | 2022-01-01 17:23 | Discharge Summary ---
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 The patient is a poor historian. The patient is speaking in muffled voice, difficult to understand, but seems to be alert and obeys simple commands, seems to understand simple questions. She says she has some abdominal pain and denies any headache, denies any chest pain. She says she is not walking. She says her son takes care of her, but could not get much history from the patient. I tried to call the son, but could not able to reach him. ER physician was able to talk to her son, seems the patient has some nausea, vomiting and she complained of shortness of breath. When EMS arrived, she was saturating 89% with oxygen saturation improved and she was brought to the hospital. The patient is seemed to be in abdominal discomfort and the labs were done, which were unremarkable. CT of abdomen and pelvis was ordered and when she went to CAT scan, she was requiring more oxygen and CT scan of the abdomen and pelvis preliminary report showing multifocal inflammatory density seen in the right lung suggestive of pneumonia and also bilateral nonobstructing renal stones, largest one measuring 7 mm in diameter. The patient was started on antibiotic, Zosyn in the ER, hemodynamically stable. Admission Exam Per Admitting Provider GENERAL: Patient is alert and awake, not in acute distress, old and frail. VITAL SIGNS: Temperature 36.9, pulse 94, respiratory rate 19, blood pressure 173/69, oxygen 98% on OxyMask at 4 liters. HEENT: Head is atraumatic. No facial droop seen. Oral mucosa somewhat dry. NECK: No JVD. No neck masses. CARDIOVASCULAR: S1 and S2 heard. Regular rate and rhythm. No murmur, no gallop. RESPIRATORY SYSTEM: Normal AP diameter. No accessory muscle use. No wheezing, no crackles. ABDOMEN: Soft, bowel sounds present. Mild abdominal discomfort. Mild guarding, no rigidity. No distention. CENTRAL NERVOUS SYSTEM: Alert and awake. Obeys simple commands. Moves extremities. No facial droop. EXTREMITIES: No edema, no erythema seen. Principal Diagnosis Acute hypoxia secondary to bilateral pneumonia, likely secondary aspiration pneumonitis versus community-acquired pneumonia Discharge Exam General- oriented x 1, not in distress, speaks in sentences with no effort or accessory muscle use Eyes- anicteric Neck- no JVD Lungs- clear breath sounds bilaterally, no crackles no wheezing Heart- normal rate, regular rhythm; no murmurs Abdomen- normal bowel sounds, nondistended, soft, nontender Extremities- no pretibial edema, no calf tenderness Neuro- alert, oriented x 1; no new gross focal neurologic deficits Skin- warm & dry Discharge Data Allergies Allergy/AdvReac Type Severity Reaction Status Date / Time mirtazapine AdvReac Intermediate Increased Verified 12/29/21 02:42 Anxiety morphine AdvReac Intermediate NAUSEA Verified 12/29/21 02:42 oxycodone AdvReac Intermediate GI SYMPTOMS Verified 12/29/21 02:42 Consultations 12/29/21 06:28 ED Decision to Admit Stat Ordered Studies CT OF THE ABDOMEN AND PELVIS WITH CONTRAST CLINICAL HISTORY: Abdominal pain, nausea and vomiting. COMPARISON STUDY: CT of the abdomen and pelvis October 04, 2020. Abdominal series December 29, 2021. TECHNIQUE: Following IV administration of 93 mL of Optiray, axial images of the abdomen and pelvis were obtained from the lung bases to the proximal femurs. Images were reviewed in the axial, sagittal, and coronal planes. IV contrast was administered without complication. Automated exposure control was utilized for the study. A dose lowering technique was utilized adhering to the principles of ALARA. CT DOSE: 486.30 mGy.cm FINDINGS: Within visualized portions of the lung bases, note is made of asymmetric interlobular septal thickening and airspace opacities within the right middle and right lower lobes. No pneumatosis, free air or portal venous gas is present. Small hiatal hernia. The liver, spleen, right adrenal gland and pancreas are unremarkable. Left adrenal nodule is unchanged since CT of October 04, 2020. This is likely benign. Water attenuation bilateral renal lesions reflect cysts. There are numerous subcentimeter renal lesions which are too small to characterize. Multiple bilateral renal calculi are present. These measure up to 7 mm. No ureteral calculi are present. There is no hydronephrosis. Moderate atherosclerotic plaque of the abdominal aorta and branch vessels is present. There is no evidence for a bowel obstruction. Colonic diverticulosis is noted without evidence for acute diverticulitis. Appendix is not visualized. No lymphadenopathy or ascites. No acute fracture or suspicious lesion is identified within the visualized skeletal structures. IMPRESSION: 1. No acute process within the abdomen or pelvis. 2. Asymmetric interlobular septal thickening and airspace opacities within the right middle and right lower lobes. Interlobular septal thickening suggests interstitial pulmonary edema. The airspace opacities could reflect alveolar edema, pneumonia or aspiration pneumonitis. 3. Colonic diverticulosis. No evidence for acute diverticulitis. No bowel obstruction. No bowel wall thickening. ACT 112: Negative or not required by law. 12/29/21 06:53 CT OF THE CHEST WITHOUT IV CONTRAST CLINICAL HISTORY: Aspiration. Hypoxia. COMPARISON STUDY: Chest CT February 04, 2017. Chest radiograph performed earlier today. CT DOSE: 584.58 mGy.cm TECHNIQUE: Axial images of the chest were obtained without IV contrast. Images were reviewed in the axial, sagittal, and coronal planes. IV contrast was not administered for this examination. Automated exposure control was utilized for the study. A dose lowering technique was utilized adhering to the principles of ALARA. FINDINGS: No enlarged axillary, mediastinal or hilar lymph nodes are present. Mild cardiomegaly is noted. There is no pericardial effusion. No pneumothorax or pleural effusion is present. Central airways are patent. Lungs are suboptimally assessed due to respiratory motion. Note is made of interlobular septal thickening, greater within the right lung. There are also moderate multifocal airspace opacities, greater within the right lung. No lobar consolidation is present. No acute fracture or suspicious lesion within the visualized skeletal structures. A low-attenuation left adrenal nodule is unchanged since CT of October 04, 2020. This favors an adenoma. IMPRESSION: 1. Interlobular septal thickening and moderate multifocal airspace opacities, greater within the right lung. Interlobular septal thickening favors pulmonary edema. The airspace opacities could reflect alveolar edema, pneumonia or aspiration pneumonitis. 2. Cardiomegaly. 3. No pleural effusion. ACT 112: Negative or not required by law. Electronically signed by: Andrés Caraballo M.D. 12/29/2021 9:07 AM NM pul perfusion CLINICAL HISTORY: hypoxia, r/o PE Technique: Perfusion imaging was performed in multiple projections after the intravenous injection of 5.5 mCi of Tc-99m labeled macroaggregated albumin (MAA). Comparison: Comparison is made to CT chest 12/29/2021 FINDINGS/IMPRESSION: Homogeneous perfusion was seen bilaterally. Low probability of pulmonary embolism. ACT 112: Negative or not required by law. Electronically signed by: Chapin Huff M.D. 12/29/2021 1:48 PM 12/29/21 11:00 US venous doppler LE BI Stat XR abdomen 2V w PA chest CLINICAL HISTORY: sob, constipation TECHNIQUE: 2 views of the abdomen were obtained. A single view of the chest was obtained. Comparison: Comparison is made to chest 2 views 10/13/2020 FINDINGS: No lines and tubes are seen. The cardiomediastinal silhouette is normal. Bilateral airspace opacities are seen. No evidence of pleural effusion or pneumothorax. The osseous structures are grossly unremarkable. Multiple gas-distended loops of large bowel are seen. The small bowel gas pattern appears nonobstructive. Small stool burden is seen. IMPRESSION: 1. Prominent gas distended loops of large bowel without evidence of small bowel obstruction. 2. Bilateral airspace opacities are seen which may represent atelectasis, pn eumonia, and/or aspiration. ACT 112: Negative or not required by law. Electronically signed by: Chapin Huff M.D. 12/29/2021 7:37 AM BILATERAL LOWER EXTREMITY VENOUS DOPPLER HISTORY: Acute pain and swelling of the lower legs r/o DVT COMPARISON STUDY: None. FINDINGS: There is normal compressibility, flow, and augmentation within the bilateral lower extremity deep venous systems. IMPRESSION: No DVT within the right or left lower extremity. ACT 112: Negative or not required by law. Hospital Course (1) Pneumonia: ASSESSMENT AND PLAN: This is an 89-year-old female who is complaining of some shortness of breath and abdominal discomfort. 1. ACUTE HYPOXIA BILATERAL PNEUMONIA, POSSIBLE ASPIRATION SECONDARY TO VOMITING, POSSIBLE COMMUNITY ACQUIRED CT chest: 1. Interlobular septal thickening and moderate multifocal airspace opacities, greater within the right lung. Interlobular septal thickening favors pulmonary edema. The airspace opacities could reflect alveolar edema, pneumonia or aspiration pneumonitis. 2. Cardiomegaly. 3. No pleural effusion. - improving daily - off oxygen supplement - continue Augmentin + Doxycycline PO Day 4 Speech therapy recommendations noted - monitor closely Incentive spirometry 2. NAUSEA/VOMITING, ABDOMINAL PAIN FROM CONSTIPATION, VIRAL GASTROENTERITIS? - resolved - CT abdomen: 1. No acute process within the abdomen or pelvis. 2. Asymmetric interlobular septal thickening and airspace opacities within the right middle and right lower lobes. Interlobular septal thickening suggests interstitial pulmonary edema. The airspace opacities could reflect alveolar edema, pneumonia or aspiration pneumonitis. 3. Colonic diverticulosis. No evidence for acute diverticulitis. No bowel obstruction. No bowel wall thickening. - (+) BM on the day of admission continue laxative 3. History of diabetes, not on any medication, placed on insulin sliding scale. - A1C 6.4 4. Chronic kidney disease stage III. Baseline creatinine 1.3, current creatinine 1.4 - crea stable 5. Hypokalemia - replaced 6. Hypertension. Continue metoprolol succinate. -- resume Lisinopril 7. History of gout. Continue allopurinol. 8. History of gastroesophageal reflux disease. Continue omeprazole. 9. History of hypothyroidism. Continue Synthroid. 10. History of depression, generalized anxiety disorder. Continue her Lexapro. 11.Remote history of bladder cancer, 12 history of Alzheimer's disease and mild dementia -- (+) delirium continue reorientation, delirium prevention strategies 13. History of paroxysmal atrial tachycardia. Continue metoprolol succinate. 14. Deep venous thrombosis prophylaxis. Placed on heparin subcutaneously. DISPOSITION: D/C home ff up with PCP in 1 week plan of care discussed with patient's son Koby at bedside in detail and at length all questions answered he is understanding, agreeable, comfortable with the plan of care Total Time Total Time Spent Total Time Spent (In Minutes): > 30 minutes Discharge Plan Discharge Items Patient Disposition: Home - Self-Care Reason For Visit: SOB Discharge Diagnosis: ACUTE HYPOXIA, BILATERAL PNEUMONIA, LIKELY ASPIRATION Activity: Resume your previous activity Activity Comment: FALL PRECAUTIONS PLEASE Lifting: Wait until after follow-up appointment Exercise/Sports: Wait until after follow-up appointment Non-emergency contact: Primary Care Provider Call non-emergency contact if: you have any medication questions, your symptoms worsen, your pain is not controlled, your pain is worsening, your pain is unusual for you, your pain is concerning for you and you have a fever Follow-up/Referrals: Jeff Good, DO [Primary Care Provider] - Diet: Heart Healthy Addtl Attending Provider Instructions: PLEASE REFER TO YOUR NEW MEDICATION LIST AND FOLLOW INSTRUCTIONS CAREFULLY. YOUR NEW MEDICATIONS INCLUDE: AUGMENTIN AND DOXYCYCLINE- antibiotic for pneumonia MILK OF MAGNESIUM- for constipation PROBIOTICS- take 1 tablet/capsule daily to prevent C diff diarrhea from antibiotics PLEASE CALL YOUR PRIMARY CARE PHYSICIAN OR RETURN TO THE ER IF WITH WORSENING OF SYMPTOMS, INCLUDING COUGH, SHORTNESS OF BREATH, NAUSEA/VOMITING, DIARRHEA, ABDOMINAL PAIN, FEVER/CHILLS. FOLLOW UP WITH PRIMARY CARE PHYSICIAN OUTLINED ABOVE. Pending Studies at Discharge: No Stand-Alone Forms: My [facility], Smoking Cessation Medications and DC Order Prescriptions: New doxycycline hyclate 100 mg Capsule 100 mg PO BID 4 Days Qty: 8 RF: 0 magnesium oxide 400 mg (241.3 mg magnesium) Tablet 400 mg PO BID 3 Days Qty: 6 RF: 0 amoxicillin-pot clavulanate 500-125 mg Tablet 1 tab PO BIDM 4 Days Qty: 8 RF: 0 magnesium hydroxide [Milk of Magnesia] 400 mg/5 mL suspension 30 ml PO BID PRN (Reason: constipation) Qty: 355 RF: 0 Continued metoprolol succinate 50 mg tablet extended release 24 hr 50 mg PO QAM RF: 0 omeprazole 40 mg capsule,delayed release(DR/EC) 40 mg PO BID RF: 0 folic acid 1 mg tablet 1 mg PO QAM RF: 0 allopurinol 300 mg tablet 300 mg PO HS RF: 0 lisinopril 5 mg tablet 5 mg PO QAM RF: 0 acetaminophen [Tylenol Extra Strength] 500 mg Tablet 500 - 1,000 mg PO DIRECTED PRN (Reason: PAIN/FEVER) RF: 0 levothyroxine 75 mcg tablet 75 mcg PO QAM RF: 0 diphenhydramine HCl [Benadryl] 25 mg Capsule 25 mg PO HS RF: 0 docusate sodium [Stool Softener] 100 mg Capsule 100 mg PO DAILY PRN (Reason: Constipation) RF: 0 furosemide 20 mg tablet 10 mg PO DAILY PRN (Reason: Edema) RF: 0 escitalopram oxalate 10 mg tablet 10 mg PO HS RF: 0 Discharge Orders: Discharge Order (Routine); Ordered 01/01/22 Ordered By: aSbas Lopez/Other Patient Handouts: Managing Type 2 Diabetes Admission Data Admit Date/Time: 12/29/21 06:53 Attending Provider: Sabas Miranda Admit Provider: Richard Monique Primary Care Provider: Jeff Good Other Providers: Richard Monique
== END 2022-01-01 18:37 | disposition home or self-care (01) | DRG 178 ==
LOC: ED 02:12 → 2S 06:53

== ENCOUNTER 2022-04-28 20:48 | Inpatient (IN) ==
[2022-04-28] MEDS ORDERED: DAPTOmycin 200 MG in SYRINGE 0 ML IV SCH (22:00)
[2022-04-28 22:13] LABS: Basophils # (auto) 0.08 K/uL (0-0.2); Eosinophils % (auto) 3.9 %; Hematocrit (blood only) 32.8 % (34.1-44.9); Hemoglobin 10.8 g/dl (12.0-16.0); Immature Granulocytes # (auto) 0.04 K/uL (0.00-0.02); Immature Granulocytes % (auto) 0.5 %; Lymphocytes # (auto) 2.07 K/uL (1.2-3.4); Lymphocytes % (auto) 26.8 %; Mean Corpuscular Hgb Conc 32.9 g/dL (32.0-36.0); Mean Platelet Volume 10.2 fL (9.4-12.3); Monocytes # (auto) 0.65 K/uL (0.24-0.82); Monocytes % (auto) 8.4 %; Neutrophils # (auto) 4.58 K/uL (1.4-6.5); Neutrophils % (auto) 59.4 %; Platelet Count 298 K/uL (130-400); RDW Coefficient of Variation 15.9 % (11.5-14.5); RDW Standard Deviation 57.2 fL (36.4-46.3); Red Blood Count 3.38 M/uL (3.93-5.22); White Blood Count 7.72 K/ul (4.8-10.8)
[2022-04-28 22:38] LABS: Albumin Globulin Ratio 1.5 (0.9-2); Albumin Level 4.1 gm/dl (3.4-5.0); BUN Creatinine Ratio 21.2 (10-20); Bilirubin,Total 0.2 mg/dl (0.2-1.0); Calcium 9.4 mg/dl (8.5-10.1); Creatinine Clr Calc Pharmacy 24.7 ml/min; Est GFR (African American) 39.5 ml/min; Est GFR (Non-African American) 34.1 ml/min; Globulin 2.8 gm/dl (2.5-4.0); Potassium 4.2 mmol/L (3.5-5.1); Total Protein 6.9 gm/dl (6.0-8.3)
--- NOTE | 2022-04-28 23:45 | Emergency Department Note ---
History of Present Illness General Chief complaint: Abnormal Labs/Diagnostic Testing Stated complaint: UTI, ABNORMAL LABS Time Seen by Provider: 04/28/22 21:11 Source: patient Mode of arrival: ambulatory Limitations: other (SENECA and mild dementia) History of Present Illness Provider complaint: Called to come back due to abnormal urine culture This is an 89-year-old female who was seen and evaluated here recently, and diagnosed with a UTI. She was contacted as part of the culture follow-up as the antibiotic she was discharged on was suboptimal in treating her infection. Unfortunately in discussion with the ED pharmacistMaame, patient would be a candidate only for IV antibiotics. The pharmacist did contact the patient's son who lives with her and they were eventually able to find transportation back to the emergency room. Patient denied any new or evolving symptoms including abdominal pain, fevers, nausea or vomiting. Patient is significantly hard of hearing and son does help to provide additional information. He states she has not had significant problems with recurrent UTIs. No other history of kidney problems or kidney stones. Pt seen during a time of high acuity and national emergency pandemic while wearing PPE. Home Medications Medication Instructions Recorded Confirmed Type allopurinol 300 mg tablet 300 mg PO HS 03/14/19 04/28/22 History folic acid 1 mg tablet 1 mg PO QAM 03/14/19 04/28/22 History lisinopril 5 mg tablet 5 mg PO QAM 03/14/19 04/28/22 History metoprolol succinate 50 mg 50 mg PO QAM 03/14/19 04/28/22 History tablet,extended release 24 hr omeprazole 40 mg capsule,delayed 40 mg PO BID 03/14/19 04/28/22 History release acetaminophen 500 mg tablet 500 - 1,000 mg PO DIRECTED PRN 12/29/21 04/28/22 History (Tylenol Extra Strength) PAIN/FEVER furosemide 20 mg tablet 10 mg PO DAILY PRN Edema 12/29/21 04/28/22 History levothyroxine 75 mcg tablet 75 mcg PO QAM 12/29/21 04/28/22 History yrppxgdq-qyq-vlhvy ac 400 1 tab PO DAILY 03/14/22 04/28/22 History mcg-calcium carb 500 mg-vit K1 20 mcg tablet (Women's 50 Plus Multivitamin) phenylephrine 5 1 cap PO DIRECTED PRN 03/14/22 04/28/22 History mg-dextromethorphan 10 COLD/CONGESTION SYMPTOMS mg-acetaminophen 325 mg capsule (Sheila-Gilby Plus Sinus-Cough) phenylephrine 5 1 cap PO DIRECTED PRN 03/14/22 04/28/22 History mg-dextromethorphan 10 COLD/CONGESTION SYMPTOMS mg-acetaminophen 325 mg capsule (Vicks DayQuil Cold and Flu Relief) cephalexin 500 mg capsule 500 mg PO TID 04/28/22 04/28/22 History escitalopram oxalate 10 mg tablet 10 mg PO QPM 04/28/22 04/28/22 History loratadine 10 mg tablet 10 mg PO DAILY PRN Allergy Symptoms 04/28/22 04/28/22 History melatonin 10 mg tablet 10 mg PO HS PRN Insomnia 04/28/22 04/28/22 History Allergies Allergy/AdvReac Type Severity Reaction Status Date / Time amoxicillin Allergy ITCHING Unverified 04/28/22 22:30 mirtazapine AdvReac Intermediate Increased Verified 04/28/22 22:29 Anxiety morphine AdvReac Intermediate NAUSEA Verified 04/28/22 22:29 oxycodone AdvReac Intermediate GI SYMPTOMS Verified 04/28/22 22:29 Past Med/Surg History Medical History (Updated 04/29/22 @ 01:05 by Olga Graves DO) 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 Dementia Diverticulitis Family History Other Family history non-contributory Social History Smoking Status: Never smoker Tobacco Type: Cigarettes Second Hand Exposure: No; Hx Alcohol Use: No Hx Substance Use: No Preferred Language: Yakut Communication Ability: Effective Hearing Ability: Hard of Hearing 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 All systems reviewed & are unremarkable except as noted in HPI & below Physical Exam Vital Signs Vital Signs - 24 hr 04/28/22 20:51 04/28/22 22:18 04/29/22 00:16 Temperature 37.2 C Temperature Source Temporal Artery Scan Pulse Rate 67 Pulse Rate [Finger] 58 L 78 Pulse Rhythm Regular Pulse Rhythm [Finger] Regular Pulse Strength Normal Respiratory Rate 20 16 16 Blood Pressure 156/76 H Blood Pressure [Right Arm] 162/69 H Blood Pressure Mean 102 Blood Pressure Mean [Right Arm] 100 Blood Pressure Position Sitting Pulse Oximetry 98 98 Oxygen Delivery Method Sepsis Recent Fever Within 48 Hours No Sepsis New/Unexplained Change in Mental Status N/A Sepsis Action Taken by Nursing No Action Required 04/29/22 00:58 Temperature Temperature Source Pulse Rate Pulse Rate [Finger] 83 Pulse Rhythm Pulse Rhythm [Finger] Pulse Strength Respiratory Rate 16 Blood Pressure Blood Pressure [Right Arm] 158/80 H Blood Pressure Mean Blood Pressure Mean [Right Arm] 106 Blood Pressure Position Pulse Oximetry 97 Oxygen Delivery Method Room Air Sepsis Recent Fever Within 48 Hours Sepsis New/Unexplained Change in Mental Status Sepsis Action Taken by Nursing GENERAL: alert, well appearing, well nourished, no distress, non-toxic, SENECA EYE EXAM: normal conjunctiva, PERRL and EOM's grossly intact OROPHARYNX: no exudate, no erythema, lips, buccal mucosa, and tongue normal and mucous membranes are moist, edentulous NECK: supple, no nuchal rigidity, no adenopathy, non-tender LUNGS: Clear to auscultation. Normal chest wall mechanics, no w/r/r HEART: no murmurs, S1 normal and S2 normal ABDOMEN: abdomen soft, non-tender, normo-active bowel sounds, no masses, no rebound or guarding. BACK: Back is symmetrical on inspection and there is no deformity, no midline tenderness, no CVA tenderness. SKIN: no rashes and no bruising UPPER EXTREMITIES: upper extremities are grossly normal. FROM, nml pulses b/l. LOWER EXTREMITIES: No pitting edema. FROM, nml pulses b/l. NEURO EXAM: Normal sensorium, cranial nerves II-XII grossly intact, normal speech, no gross weakness of arms, no gross weakness of legs. Gross sensation intact. Course Administered Medications Daptomycin 200 mg/ Syringe 4 mls @ 2 mls/min IV Q24H [facility]; Protocol Stop: 05/08/22 21:59 Last Admin: 04/28/22 22:17 Dose: 2 mls/min Documented By: EMB Medical Decision Making Differential Diagnosis Differential: UTI, Urethritis, Pyelonephritis, STI, Herpetic, Vaginitis, Hyperglycemia, Yeast, PID, Hemorrhagic Cystitis, amongst other pathologies entertained. Medical Records Attestation: I reviewed the patient's medical records. Home Medications Current Medication List: was personally reviewed by me Laboratory Data Attestation: I reviewed the patient's lab results. Result diagrams: 04/28/22 20:05 04/28/22 20:05 Lab Results 04/28/22 04/28/22 04/28/22 Range/Units 20:05 20:05 20:05 WBC 7.72 (4.8-10.8) K/ul RBC 3.38 L (3.93-5.22) M/uL Hgb 10.8 L (12.0-16.0) g/dl Hct 32.8 L (34.1-44.9) % MCV 97.0 (80.0-100.0) fL MCH 32.0 (25.0-34.0) pg MCHC 32.9 (32.0-36.0) g/dL RDW Std Deviation 57.2 H (36.4-46.3) fL RDW Coeff of Mis 15.9 H (11.5-14.5) % Plt Count 298 (130-400) K/uL MPV 10.2 (9.4-12.3) fL Immature Gran % (Auto) 0.5 % Neut % (Auto) 59.4 % Lymph % (Auto) 26.8 % Ida % (Auto) 8.4 % Eos % (Auto) 3.9 % Baso % (Auto) 1.0 % Neut # (Auto) 4.58 (1.4-6.5) K/uL Lymph # (Auto) 2.07 (1.2-3.4) K/uL Ida # (Auto) 0.65 (0.24-0.82) K/uL Eos # (Auto) 0.30 (0-0.50) K/uL Baso # (Auto) 0.08 (0-0.2) K/uL Immature Gran # (Auto) 0.04 H (0.00-0.02) K/uL Sodium 138 (136-145) mmol/L Potassium 4.2 (3.5-5.1) mmol/L Chloride 110 H (98-107) mmol/L Carbon Dioxide 21 (21-32) mmol/L Anion Gap 7 (3-11) BUN 29 H (6-23) mg/dl Creatinine 1.37 H (0.6-1.2) mg/dl Est Cr Clr Drug Dosing 24.7 ml/min Est GFR ( Amer) 39.5 ml/min Est GFR (Non-Af Amer) 34.1 ml/min BUN/Creatinine Ratio 21.2 H (10-20) Glucose 116 H (70-99(Fasting)) mg/dl Calcium 9.4 (8.5-10.1) mg/dl Total Bilirubin 0.2 (0.2-1.0) mg/dl AST 17 (13-39) U/L ALT 8 (7-52) U/L Alkaline Phosphatase 86 (34-104) U/L Total Protein 6.9 (6.0-8.3) gm/dl Albumin 4.1 (3.4-5.0) gm/dl Globulin 2.8 (2.5-4.0) gm/dl Albumin/Globulin Ratio 1.5 (0.9-2) Procalcitonin < 0.05 (0-0.5) ng/ml SARS-CoV-2, RNA, NAAT (NEGATIVE) 04/29/22 Range/Units 00:14 WBC (4.8-10.8) K/ul RBC (3.93-5.22) M/uL Hgb (12.0-16.0) g/dl Hct (34.1-44.9) % MCV (80.0-100.0) fL MCH (25.0-34.0) pg MCHC (32.0-36.0) g/dL RDW Std Deviation (36.4-46.3) fL RDW Coeff of Mis (11.5-14.5) % Plt Count (130-400) K/uL MPV (9.4-12.3) fL Immature Gran % (Auto) % Neut % (Auto) % Lymph % (Auto) % Ida % (Auto) % Eos % (Auto) % Baso % (Auto) % Neut # (Auto) (1.4-6.5) K/uL Lymph # (Auto) (1.2-3.4) K/uL Ida # (Auto) (0.24-0.82) K/uL Eos # (Auto) (0-0.50) K/uL Baso # (Auto) (0-0.2) K/uL Immature Gran # (Auto) (0.00-0.02) K/uL Sodium (136-145) mmol/L Potassium (3.5-5.1) mmol/L Chloride (98-107) mmol/L Carbon Dioxide (21-32) mmol/L Anion Gap (3-11) BUN (6-23) mg/dl Creatinine (0.6-1.2) mg/dl Est Cr Clr Drug Dosing ml/min Est GFR ( Amer) ml/min Est GFR (Non-Af Amer) ml/min BUN/Creatinine Ratio (10-20) Glucose (70-99(Fasting)) mg/dl Calcium (8.5-10.1) mg/dl Total Bilirubin (0.2-1.0) mg/dl AST (13-39) U/L ALT (7-52) U/L Alkaline Phosphatase (34-104) U/L Total Protein (6.0-8.3) gm/dl Albumin (3.4-5.0) gm/dl Globulin (2.5-4.0) gm/dl Albumin/Globulin Ratio (0.9-2) Procalcitonin (0-0.5) ng/ml SARS-CoV-2, RNA, NAAT NEGATIVE (NEGATIVE) MDM Narrative An order was placed for continuous cardiac monitoring. The monitor shows a rate of __80_ with _normal sinus_ rhythm. This is an 89-year-old male presents after being called to return due to an abnormal urine culture with abnormal resistance pattern requiring IV antibiotics for treatment. Patient denies prior history of recurrent UTI. No signs or symptoms to suggest accompanying renal colic or evolving pyelonephritis. I do not suspect bacteremia/sepsis. Patient was afebrile and hemodynamically stable throughout. Son at bedside did help provide history. They were in agreement with plan for IV antibiotics and monitoring in the hospital overnight until hopefully arrangements could be made for outpatient infusions. No evidence of TENNILLE. Patient otherwise comfortable and well-appearing at bedside. Case discussed with hospitalist for additional evaluation and management. Impression & Plan Acute UTI (urinary tract infection) Discharge Plan Visit Data Chief Complaint: Abnormal Labs/Diagnostic Testing Stated Complaint: UTI, ABNORMAL LABS ED Provider: Olga Graves Discharge Problem: Acute UTI (urinary tract infection) Patient Disposition: Being Evaluated by Hospitalist Condition: Good Forms Stand Alone Forms: My [facility] Prescriptions Prescriptions: No Action metoprolol succinate 50 mg tablet extended release 24 hr 50 mg PO QAM omeprazole 40 mg capsule,delayed release(DR/EC) 40 mg PO BID folic acid 1 mg tablet 1 mg PO QAM allopurinol 300 mg tablet 300 mg PO HS lisinopril 5 mg tablet 5 mg PO QAM acetaminophen [Tylenol Extra Strength] 500 mg Tablet 500 - 1,000 mg PO DIRECTED PRN (Reason: PAIN/FEVER) levothyroxine 75 mcg tablet 75 mcg PO QAM furosemide 20 mg tablet 10 mg PO DAILY PRN (Reason: Edema) Vicks DayQuil Cold-Flu Relief 5-10-325 mg Capsule 1 cap PO DIRECTED PRN (Reason: COLD/CONGESTION SYMPTOMS) Sheila-Gilby Plus Sinus-Cough 5-10-325 mg Capsule 1 cap PO DIRECTED PRN (Reason: COLD/CONGESTION SYMPTOMS) Women's 50 Plus Multivitamin 400 mcg-500 mg calcium-20 mcg Tablet 1 tab PO DAILY loratadine 10 mg Tablet 10 mg PO DAILY PRN (Reason: Allergy Symptoms) escitalopram oxalate 10 mg tablet 10 mg PO QPM melatonin 10 mg Tablet 10 mg PO HS PRN (Reason: Insomnia) cephalexin 500 mg Capsule 500 mg PO TID Rx Instructions: BEGIN 04/25/22 X 7 DAYS Referrals Referrals: Jeff Good DO [Primary Care Provider] -
[2022-04-29] MEDS ORDERED: SODIUM CHLORIDE 0.9% 1000ML 1,000 ML IV SCH (01:15)
[2022-04-29] MEDS ORDERED: MELATONIN 3 MG TAB PO PRN (02:58)
[2022-04-29] MEDS ORDERED: LORATADINE 10 MG TAB PO PRN (02:58)
[2022-04-29] MEDS ORDERED: FUROSEMIDE 20 MG TAB PO PRN (02:58)
[2022-04-29] MEDS ORDERED: ONDANSETRON INJ 2 MG/ML 2 ML VIAL IV PRN (02:58)
[2022-04-29] MEDS ORDERED: POLYETHYLENE (MIRALAX) 17 GM PACK PO PRN (02:58)
[2022-04-29] MEDS ORDERED: D5W AND 1/2NSS 1,000 ML IV SCH (02:58)
[2022-04-29] MEDS ORDERED: hydrALAZINE HCL 20 MG/ML VIAL IV ONE (03:51)
--- NOTE | 2022-04-29 05:05 | History and Physical Report ---
DATE OF ADMISSION: 04/29/2022. CHIEF COMPLAINT: UTI with resistant Enterococcus. HISTORY OF PRESENT ILLNESS: This is an 89-year-old female with past medical history significant for type 2 diabetes, currently not on any medications, benign neoplasm of adrenal gland, hyperlipidemia, hypothyroidism, hypertension, paroxysmal atrial tachycardia, GERD, chronic kidney disease stage III, history of acoustic neuroma, mild dementia with Alzheimer disease, history of bladder cancer, depression, generalized anxiety disorder, was recently here with a UTI. She was discharged on antibiotics, but cultures came back with Enterococcus resistant to penicillins. Given a dose of daptomycin in the ER. The patient is somewhat hard of hearing, but alert and oriented, she says she uses a wheelchair, but she rolls the wheels by her hands. She says she fell a couple of times and complains of pain and bruises in the extremities and the face. Denies any headache. Says vision is not great. Hearing not great. No sore throat. No cough. Afebrile. No chest pain. Denies shortness of breath. Denies nausea or abdominal pain. She takes some stool softeners, she says her bowels are moving okay. Appetite is okay. She says she can chew okay and she is eating okay. ALLERGIES: AMOXICILLIN, MIRTAZAPINE, MORPHINE, OXYCODONE. PAST MEDICAL HISTORY: As mentioned above. PAST SURGICAL HISTORY: Cystoscopy, ERCP, hemorrhoidectomy, adenoidectomy, tonsillectomy, cervical spine surgery, hysterectomy, right carpal tunnel release, right cataract surgery, sigmoidoscopy. MEDICATIONS: The patient is on Tylenol 500 mg p.o. p.r.n., allopurinol 300 mg p.o. at bedtime, Keflex 500 mg p.o. daily, Lexapro 10 mg p.o. q.a.m., folic acid 1 mg p.o. a.m., Lasix 10 mg p.o. daily p.r.n., levothyroxine 75 mcg p.o. a.m., lisinopril 5 mg p.o. a.m., loratadine 10 mg p.o. daily p.r.n., melatonin 10 mg p.o. at bedtime p.r.n., metoprolol succinate 50 mg p.o. a.m., multivitamins 1 tablet p.o. daily, omeprazole 40 mg p.o. b.i.d. FAMILY HISTORY: Significant for father has lung cancer, sister has skin cancer, daughter has thyroid disorder. SOCIAL HISTORY: . No smoking, no alcohol use. REVIEW OF SYSTEMS: As per HPI. Rest of review of systems is negative. PHYSICAL EXAMINATION: GENERAL: The patient is old and frail, hard of hearing, not in acute distress. VITAL SIGNS: Temperature 37.2, pulse 83, respiratory rate 16, blood pressure 158/80, oxygen 97% on room air. HEENT: Pupils equal, round and reactive to light. Oral mucosa moist. NECK: No JVD or neck masses. CARDIOVASCULAR: S1 and S2 heard. Regular rate and rhythm. No murmur, no gallop. RESPIRATORY SYSTEM: Normal AP diameter. No accessory muscle use. No wheezing, no crackles. ABDOMEN: Soft, bowel sounds present, nontender, no distention. CENTRAL NERVOUS SYSTEM: Alert and oriented. No facial droop. Speech is okay, hard of hearing, but insight is okay. Answers appropriately. Obeys simple commands. Moves extremities. EXTREMITIES: No edema, no erythema. LABORATORY DATA: WBC 7.7, hemoglobin 10.8, hematocrit 32.8, platelets 298. Sodium 138, potassium 4.2, chloride 110, bicarbonate 21, BUN 29, creatinine 1.3, serum glucose 116, calcium 9.4, total bilirubin 0.2, AST 17, ALT 8, alkaline phosphatase 86. Procalcitonin less than 0.05. SARS-CoV-2 rapid test negative. EKG: Sinus rhythm with first-degree AV block at the rate of 61. No significant change was found. ASSESSMENT AND PLAN: This is an 89-year-old female who presents with urinary tract infection with Enterococcus resistant to penicillins. 1. Urinary tract infection with Enterococcus faecalis resistant to penicillins. ER Started on IV daptomycin and should adjust the dose based on the renal function. Monitor in the hospital. At discharge may need PICC line. 2. History of mild Alzheimer dementia: Monitor for any delirium. 3. History of diabetes: Not on any medication. We will place on diabetic diet. Follow HbA1c levels. 4. Chronic kidney disease stage III: Baseline creatinine 1.3, presently with creatinine of 1.3. We will follow the labs. 5. Hypertension: Continue metoprolol succinate and lisinopril. Follow the blood pressure. 6. History of gout: Continue allopurinol. 7. Gastroesophageal reflux disease: Continue omeprazole. 8. History of hypothyroidism: Continue Synthroid. 9. History of depression, generalized anxiety disorder: Continue Lexapro. 10. Remote history of bladder cancer, 11. History of paroxysmal atrial tachycardia: Continue metoprolol succinate. 12. Deep venous thrombosis prophylaxis: Placed on sequential compression devices for now. DISPOSITION: Closely monitor in the medical floor. PT/OT prior to discharge. Social service to help with discharge planning. Level 1 full code for now. Job ID: [id number] MTDD
[2022-04-29] MEDS: LEVOTHYROXINE SODIUM 75 MCG TABLET PO SCH (06:17)
[2022-04-29 07:16] LABS: Basophils # (auto) 0.09 K/uL (0-0.2); Basophils % (auto) 1.1 %; Eosinophils # (auto) 0.32 K/uL (0-0.50); Eosinophils % (auto) 3.9 %; Hematocrit (blood only) 33.4 % (34.1-44.9); Hemoglobin 11.1 g/dl (12.0-16.0); Immature Granulocytes # (auto) 0.03 K/uL (0.00-0.02); Immature Granulocytes % (auto) 0.4 %; Lymphocytes # (auto) 1.92 K/uL (1.2-3.4); Lymphocytes % (auto) 23.5 %; Mean Corpuscular Hemoglobin 31.7 pg (25.0-34.0); Mean Corpuscular Hgb Conc 33.2 g/dL (32.0-36.0); Mean Corpuscular Volume 95.4 fL (80.0-100.0); Mean Platelet Volume 10.2 fL (9.4-12.3); Monocytes # (auto) 0.62 K/uL (0.24-0.82); Monocytes % (auto) 7.6 %; Neutrophils # (auto) 5.18 K/uL (1.4-6.5); Neutrophils % (auto) 63.5 %; Platelet Count 306 K/uL (130-400); RDW Coefficient of Variation 15.5 % (11.5-14.5); RDW Standard Deviation 54.7 fL (36.4-46.3); White Blood Count 8.16 K/ul (4.8-10.8)
[2022-04-29] MEDS: FOLIC ACID 1 MG TAB PO SCH (07:37)
[2022-04-29] MEDS: METOPROLOL SUCC 50MG EXT REL TAB PO SCH (07:37)
[2022-04-29] MEDS: lisinopril 5 MG TAB PO SCH (07:38)
[2022-04-29] MEDS: CEROVITE ADV FORMULA TAB PO SCH (07:38)
[2022-04-29] MEDS: PANTOprazole 40 MG TAB PO SCH ×2 (07:38→20:38)
[2022-04-29 07:57] LABS: BUN Creatinine Ratio 20.4 (10-20); Calcium 9.6 mg/dl (8.5-10.1); Creatinine Clr Calc Pharmacy 29.9 ml/min; Est GFR (African American) 49.9 ml/min; Est GFR (Non-African American) 43.1 ml/min; Magnesium 1.9 mg/dl (1.7-2.4); Potassium 3.9 mmol/L (3.5-5.1)
--- NOTE | 2022-04-29 12:47 | Electrocardiogram Report ---
Test Reason : Blood Pressure : / mmHG Vent. Rate : 061 BPM Atrial Rate : 061 BPM P-R Int : 264 ms QRS Dur : 074 ms QT Int : 414 ms P-R-T Axes : 044 004 049 degrees QTc Int : 416 ms Sinus rhythm with 1st degree A-V block Otherwise normal ECG When compared with ECG of 25-APR-2022 19:36, No significant change was found Confirmed by Juan Carlos Quene ([id number]) on 04/29/2022 12:47:16 PM Referred By: REFERRED SELF Confirmed By:Juan Carlos Queen
[2022-04-29] MEDS: OLANZapine 10 MG/2.1 ML SDV IM PRN (13:08)
[2022-04-29] MEDS: ACETAMINOPHEN 325 MG TAB PO PRN (16:00)
--- NOTE | 2022-04-29 17:35 | Communication Note ---
Date of Service: April 29, 2022 Patient was seen and examined for follow-up UTI Lying in bed confused with 1 to 1 sitter She was screaming and trying to get out of the bed Denies any chest pain, palpitation and SOB General- confused Head- atraumatic Eyes- PERRL, EOMI, ENT- oropharynx clear Neck- supple, no JVD Lungs- clear to auscultation Heart- regular rhythm; no murmur Abdomen- normal bowel sounds, soft, nontender Extremities- no calf tenderness Neuro- alert, oriented x 3; PERRL, EOMI; no facial palsy; no dysarthria, move all 4 extremities Skin- warm & dry UTI Urine cx grew Enterococcus faecalis resistant to penicillins. Currently on IV daptomycin Will consult ID History of Alzheimer dementia Delirium Continue 1 to 1 sitter Zyprexa 2.5 mg for agitation Diabetes Not on any DM medication. Hba1c pending Continue monitor BS Chronic kidney disease stage III Creatinine 1.1 today, baseline creatinine 1.3 Stable Hypertension Continue metoprolol succinate and lisinopril. stable History of gout: Continue allopurinol. GERD Continue omeprazole. History of hypothyroidism Continue Synthroid. Depression Anxiety Continue Lexapro. History paroxysmal atrial tachycardia Continue metoprolol succinate. DVT px on SCD Will add heparin subq BID Code status Full code
[2022-04-29] MEDS ORDERED: hydrALAZINE HCL 20 MG/ML VIAL IV PRN (19:33)
[2022-04-29] MEDS: allopurinoL 300 MG TAB PO SCH (20:37)
[2022-04-29] MEDS: ESCITALOPRAM OXALATE 10 MG TAB PO SCH (20:37)
[2022-04-30] MEDS: LEVOTHYROXINE SODIUM 75 MCG TABLET PO SCH (05:51)
[2022-04-30 07:48] LABS: Estimated Average Glucose 137 mg/dl; Hemoglobin A1C 6.4 % (4.5-5.6)
[2022-04-30] MEDS: CEROVITE ADV FORMULA TAB PO SCH (08:52)
[2022-04-30] MEDS: PANTOprazole 40 MG TAB PO SCH ×2 (08:52→22:15)
[2022-04-30] MEDS: METOPROLOL SUCC 50MG EXT REL TAB PO SCH (08:52)
[2022-04-30] MEDS: lisinopril 5 MG TAB PO SCH (08:53)
[2022-04-30] MEDS: FOLIC ACID 1 MG TAB PO SCH (08:53)
[2022-04-30] MEDS: HEPARIN SOD 5,000 UNIT/0.5 ML VIAL SQ SCH ×2 (08:56→22:16)
[2022-04-30 09:22] LABS: Hematocrit (blood only) 36.6 % (34.1-44.9); Hemoglobin 12.1 g/dl (12.0-16.0); Mean Corpuscular Hemoglobin 31.8 pg (25.0-34.0); Mean Corpuscular Hgb Conc 33.1 g/dL (32.0-36.0); Mean Corpuscular Volume 96.1 fL (80.0-100.0); Mean Platelet Volume 10.3 fL (9.4-12.3); Platelet Count 340 K/uL (130-400); RDW Coefficient of Variation 15.9 % (11.5-14.5); RDW Standard Deviation 55.8 fL (36.4-46.3); Red Blood Count 3.81 M/uL (3.93-5.22); White Blood Count 10.45 K/ul (4.8-10.8)
[2022-04-30 09:48] LABS: BUN Creatinine Ratio 17.2 (10-20); Calcium 9.6 mg/dl (8.5-10.1); Creatinine Clr Calc Pharmacy 22.4 ml/min; Est GFR (African American) 35.1 ml/min; Est GFR (Non-African American) 30.3 ml/min; Potassium 4.5 mmol/L (3.5-5.1)
--- NOTE | 2022-04-30 16:32 | Hospitalist Progress Note ---
Date of Service April 30, 2022 Assessment & Plan (1) Acute UTI: Plan: Urine cx grewEnterococcus faecalis resistant to penicillins. Currently on IV daptomycin, Will continue ID consulted - pending History of Alzheimer dementia Delirium On Zyprexa 2.5 mg PRN for agitation Mental status improved Diabetes Not on any DM medication. Hba1c 6.4 on 04/29/22 Continue monitor BS Chronic kidney disease stage III Creatinine 1.5 today, baseline creatinine 1.3 Will hold lisinopril and furosemide prn Will start on gentle hydration about 500 to 1L fluid due to poor oral intake Continue monitor BMP Hypertension Continue metoprolol succinate will hold lisinopril. stable History of gout: Continue allopurinol. GERD Continue omeprazole. History of hypothyroidism Continue Synthroid. Depression Anxiety Continue Lexapro. History paroxysmal atrial tachycardia Continue metoprolol succinate. DVT px on SCD heparin subq BID Code status Full code Admission and Anticipated Discharge Date Admission Date: April 29, 2022 Subjective Patient was seen and examined for follow-up UTI Lying in bed with no distress She was calm today and there was no 1 to 1 sitter Spoke to son over the phone and provided with update and answered all the questions Denies any chest pain, palpitation and SOB Review of Systems Review of Systems: All systems reviewed & are unremarkable except as noted in Subjective Physical Exam Physical Exam: General- no acute distress Head- atraumatic Eyes- PERRL, EOMI, ENT- oropharynx clear Neck- supple, no JVD Lungs- clear to auscultation Heart- regular rhythm; no murmur Abdomen- normal bowel sounds, soft, nontender Extremities- no calf tenderness Neuro- alert, oriented; PERRL, EOMI; no facial palsy; no dysarthria, move all 4 extremities Skin- warm & dry Results & Data Results & Data ([facility]) Vital Signs (Past 12 Hours) Vital Signs Temp Pulse Resp BP Pulse Ox O2 Del Method 04/30/22 07:49 Room Air 04/30/22 07:26 36.9 C 72 16 148/73 H 91 Room Air
[2022-04-30] MEDS ORDERED: DAPTOmycin 200 MG in SYRINGE 0 ML IV SCH (22:00)
[2022-04-30] MEDS: allopurinoL 300 MG TAB PO SCH (22:14)
[2022-04-30] MEDS: ESCITALOPRAM OXALATE 10 MG TAB PO SCH (22:14)
[2022-04-30] MEDS: DAPTOmycin 400 MG in SYRINGE 0 ML IV SCH (22:21)
[2022-05-01] MEDS: LEVOTHYROXINE SODIUM 75 MCG TABLET PO SCH (06:12)
[2022-05-01 07:41] LABS: BUN Creatinine Ratio 25.7 (10-20); Calcium 9.6 mg/dl (8.5-10.1); Creatinine Clr Calc Pharmacy 20.2 ml/min; Est GFR (African American) 31.1 ml/min; Est GFR (Non-African American) 26.8 ml/min; Potassium 4.1 mmol/L (3.5-5.1)
[2022-05-01] MEDS: METOPROLOL SUCC 50MG EXT REL TAB PO SCH (08:53)
[2022-05-01] MEDS: FOLIC ACID 1 MG TAB PO SCH (08:53)
[2022-05-01] MEDS: CEROVITE ADV FORMULA TAB PO SCH (08:53)
[2022-05-01] MEDS: PANTOprazole 40 MG TAB PO SCH ×2 (08:53→20:34)
[2022-05-01] MEDS: HEPARIN SOD 5,000 UNIT/0.5 ML VIAL SQ SCH ×2 (08:54→20:34)
--- NOTE | 2022-05-01 10:20 | Hospitalist Progress Note ---
Date of Service May 01, 2022 Assessment & Plan (1) Acute UTI: Plan: Urine cx grew (per previous provider)Enterococcus faecalis resistant to penicillins. Currently on IV daptomycin, Will continue ID consulted - pending 05/01 Microbiology report corrected, Enterococcus faecium Sensitive to daptomycin, linezolid, tetracycline, Vanco Resistant to penicillin, Cipro, levofloxacin Continue IV Dapto for now, ID consult already pending History of Alzheimer dementia Delirium On Zyprexa 2.5 mg PRN for agitation Mental status improved Currently able to answer simple questions appropriately, no one-on-one sitter present at this time Diabetes Not on any DM medication. Hba1c 6.4 on 04/29/22 Continue monitor BS Chronic kidney disease stage III Creatinine 1.67 today, baseline creatinine 1.3 Will hold lisinopril and furosemide prn gentle hydration due to poor oral intake Nephrology consulted Continue monitor BMP Hypertension Continue metoprolol succinate will hold lisinopril. stable History of gout: Continue allopurinol. GERD Continue omeprazole. History of hypothyroidism Continue Synthroid. Depression Anxiety Continue Lexapro. History paroxysmal atrial tachycardia Continue metoprolol succinate. DVT px on SCD heparin subq BID Code status Full code Admission and Anticipated Discharge Date Admission Date: April 29, 2022 Subjective Patient was seen and examined for follow-up UTI Sitting up in chair, with no distress She was calm today and there was no 1 to 1 sitter Previous provider spoke to son over the phone yesterday and provided with update and answered all the questions Pt denies any fever, chills, chest pain, palpitation and shortness of breath She is able to answer simple questions appropriately. Review of Systems Review of Systems: All systems reviewed & are unremarkable except as noted in Subjective Physical Exam Physical Exam: General- elderly F no acute distress Head- atraumatic Eyes- PERRL, EOMI, ENT- oropharynx clear Neck- supple Lungs- clear to auscultation Heart- regular rhythm; no murmur Abdomen- normal bowel sounds, soft, nontender Extremities- no calf tenderness Neuro- alert, oriented, able to answer simple questions appropriately; PERRL, EOMI; no facial palsy; no dysarthria, move all 4 extremities Skin- warm & dry Results & Data Results & Data ([facility]) Vital Signs (Past 12 Hours) Vital Signs Temp Pulse Resp BP Pulse Ox O2 Del Method 05/01/22 07:12 36.7 C 78 18 123/72 98 Room Air Laboratory Results 05/01/22 04/30/22 04/30/22 Range/Units 06:39 17:05 12:03 Sodium 139 (136-145) mmol/L Potassium 4.1 (3.5-5.1) mmol/L Chloride 108 H (98-107) mmol/L Carbon Dioxide 22 (21-32) mmol/L Anion Gap 9 (3-11) BUN 43 H (6-23) mg/dl Creatinine 1.67 H (0.6-1.2) mg/dl Est Cr Clr Drug Dosing 20.2 ml/min Est GFR ( Amer) 31.1 ml/min Est GFR (Non-Af Amer) 26.8 ml/min BUN/Creatinine Ratio 25.7 H (10-20) Glucose 119 H (70-99(Fasting)) mg/dl POC Glucose 124 H 110 H (70-99) mg/dl Calcium 9.6 (8.5-10.1) mg/dl Medications Administered Current Inpatient Medications Acetaminophen (Acetaminophen 325 Mg Tab) 650 mg PO Q4H PRN PRN Reason: pain/fever Stop: 05/29/22 02:57 Last Admin: 04/29/22 16:00 Dose: 650 mg Allopurinol (Allopurinol 300 Mg Tab) 150 mg PO HS SARAN Stop: 05/29/22 20:59 Last Admin: 04/30/22 22:14 Dose: 150 mg Escitalopram Oxalate (Escitalopram Oxalate 10 Mg Tab) 10 mg PO QPM [facility]AN Stop: 05/29/22 20:59 Last Admin: 04/30/22 22:14 Dose: 10 mg Folic Acid (Folic Acid 1 Mg Tab) 1 mg PO QAM [facility]AN Stop: 05/29/22 08:59 Last Admin: 05/01/22 08:53 Dose: 1 mg Furosemide (Furosemide 20 Mg Tab) 10 mg PO DAILY PRN PRN Reason: Edema Stop: 05/29/22 02:57 Heparin Sodium (Porcine) (Heparin Sod 5,000 Unit/0.5 Ml Vial) 5,000 units SQ Q12 SARAN Stop: 05/30/22 08:59 Last Admin: 05/01/22 08:54 Dose: 5,000 units Hydralazine HCl (Hydralazine Hcl 20 Mg/Ml Vial) 7.5 mg IV Q6H PRN PRN Reason: Hypertension Stop: 05/29/22 19:32 Daptomycin 400 mg/ Syringe 8 mls @ 2 mls/min IV Q48H [facility]; Protocol Stop: 05/10/22 21:59 Last Admin: 04/30/22 22:21 Dose: 2 mls/min Levothyroxine Sodium (Levothyroxine Sodium 75 Mcg Tablet) 75 mcg PO DAILYBB [facility] Stop: 05/29/22 06:29 Last Admin: 05/01/22 06:12 Dose: 75 mcg Lisinopril (Lisinopril 5 Mg Tab) 5 mg PO QAM [facility] Stop: 05/29/22 08:59 Last Admin: 04/30/22 08:53 Dose: 5 mg Loratadine (Loratadine 10 Mg Tab) 10 mg PO DAILY PRN PRN Reason: Allergy Symptoms Stop: 05/29/22 02:57 Melatonin (Melatonin 3 Mg Tab) 9 mg PO HS PRN PRN Reason: Insomnia Metoprolol Succinate (Metoprolol Succ 50mg Ext Rel Tab) [facility] [place]: 05/29/22 08:59 Last Admin: 05/01/22 08:53 Dose: 50 mg Multivitamins/Minerals (Cerovite Adv Formula Tab) 1 tab PO DAILY [facility] Stop: 05/29/22 08:59 Last Admin: 05/01/22 08:53 Dose: 1 tab Olanzapine (Olanzapine 10 Mg/2.1 Ml Sdv) 2.5 mg IM Q12H PRN PRN Reason: agitation Stop: 05/29/22 12:59 Last Admin: 04/29/22 13:08 Dose: 2.5 mg Ondansetron HCl (Ondansetron Inj 2 Mg/Ml 2 Ml Vial) 4 mg IV Q6H PRN PRN Reason: Nausea Stop: 05/29/22 02:57 Last Admin: 04/29/22 18:36 Dose: 4 mg Pantoprazole Sodium (Pantoprazole 40 Mg Tab) 40 mg PO BID [facility] Stop: 05/29/22 08:59 Last Admin: 05/01/22 08:53 Dose: 40 mg Polyethylene Glycol (Polyethylene (Miralax) 17 Gm Pack) 17 gm PO DAILY PRN PRN Reason: Constipation Stop: 05/29/22 02:57
[2022-05-01] MEDS ORDERED: SODIUM CHLORIDE 0.9% 1000ML 500 ML IV ONE (10:22)
--- NOTE | 2022-05-01 10:51 | Nephrology Consultation ---
Date of Consultation May 01, 2022 Assessment & Plan (1) Acute on chronic renal failure: baseline creatinine 1.3 w/ otherwise acceptable chemistries. Stage 1 TENNILLE on CKD3, ATN versus prerenal. volume status seems ok as are chemistries apart from mid emerging NAGMA -NS has since been stopped and agree w/ holding it for now; encourage po -recheck UACM ordered -daily bmp -agree w/ holding lisinopril for now >>>need to record # of voids > I/O ordered -low threshold for renal imaging if worse creatinine in am. History of Present Illness Reason for Consultation: TENNILLE on CKD Requesting Physician: Dr Cervantes Attending Physician: Winston Cervantes MD History of Present Illness 89 y/o F whom I'm asked to see for TENNILLE on CKD was admitted here 04/29 for abtx resistant E faecium UTI. PMH includes dementia, diet-controlled DM, HTN, CKD 3 w/ baseline creatinine 1.3 (CKD3B), paroxysmal atrial tachycardia, gout, hypothyroid. Inf dzs c/s is pending. Pt currently on daptomycin. She presented w/ sCreat 1.4 on 04/28, came down to 1.1; then uptrend 04/30 on 1.5 and to 1.7 today. Some elevated BP this admission. She is currently receivin g500 mL NS bolus then NS 100 mL hourly today. on lisinopril 5 mg daily, on hold now and last dosed 04/30. prn lasix also on hold and has not been dosed this admission. She has not had IV contrast or nsaids. she is hard of hearing which limits ROS but tells me she has less dysuria now and no sob, no uncontrolled pain; denies n/v; denies malaise. Allergies Allergy/AdvReac Type Severity Reaction Status Date / Time amoxicillin Allergy ITCHING Unverified 04/28/22 22:30 mirtazapine AdvReac Intermediate Increased Verified 04/28/22 22:29 Anxiety morphine AdvReac Intermediate NAUSEA Verified 04/28/22 22:29 oxycodone AdvReac Intermediate GI SYMPTOMS Verified 04/28/22 22:29 Home Medications Medication Instructions Recorded Confirmed Type allopurinol 300 mg tablet 300 mg PO HS 03/14/19 04/28/22 History folic acid 1 mg tablet 1 mg PO QAM 03/14/19 04/28/22 History lisinopril 5 mg tablet 5 mg PO QAM 03/14/19 04/28/22 History metoprolol succinate 50 mg 50 mg PO QAM 03/14/19 04/28/22 History tablet,extended release 24 hr omeprazole 40 mg capsule,delayed 40 mg PO BID 03/14/19 04/28/22 History release acetaminophen 500 mg tablet 500 - 1,000 mg PO DIRECTED PRN 12/29/21 04/28/22 History (Tylenol Extra Strength) PAIN/FEVER furosemide 20 mg tablet 10 mg PO DAILY PRN Edema 12/29/21 04/28/22 History levothyroxine 75 mcg tablet 75 mcg PO QAM 12/29/21 04/28/22 History uovqzgip-kva-xhnax ac 400 1 tab PO DAILY 03/14/22 04/28/22 History mcg-calcium carb 500 mg-vit K1 20 mcg tablet (Women's 50 Plus Multivitamin) phenylephrine 5 1 cap PO DIRECTED PRN 03/14/22 04/28/22 History mg-dextromethorphan 10 COLD/CONGESTION SYMPTOMS mg-acetaminophen 325 mg capsule ([place] Plus Sinus-Cough) phenylephrine 5 1 cap PO DIRECTED PRN 03/14/22 04/28/22 History mg-dextromethorphan 10 COLD/CONGESTION SYMPTOMS mg-acetaminophen 325 mg capsule ([place] DayQuil Cold and Flu Relief) cephalexin 500 mg capsule 500 mg PO TID 04/28/22 04/28/22 History escitalopram oxalate 10 mg tablet 10 mg PO QPM 04/28/22 04/28/22 History loratadine 10 mg tablet 10 mg PO DAILY PRN Allergy Symptoms 04/28/22 04/28/22 History melatonin 10 mg tablet 10 mg PO HS PRN Insomnia 04/28/22 04/28/22 History Patient History Medical History 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 CKD (chronic kidney disease) stage 3, GFR 30-59 ml/min Dementia Diverticulitis Hypertension Hypothyroidism Family History Other Family history non-contributory Social History Smoking Status: Former smoker Tobacco Type: Cigarettes Second Hand Exposure: No; Hx Alcohol Use: No Hx Substance Use: No Preferred Language: Wallisian Communication Ability: Effective Hearing Ability: Hard of Hearing 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: No Beliefs That Will Affect Care: None marital status: / Current Living Situation: Family Current Living Situation Comment: son current occupational status: retired Other Information That Helps Us Care for You: No Feels Safe at Home: Yes Safety Concerns: Feels Safe At This Time Assistive Devices: Wheelchair Review of Systems Review of Systems: All systems reviewed & are unremarkable except as noted in HPI & below Physical Exam Constitutional: well developed, well nourished, + frail appearing and cooperative; no acute distress Eyes: EOM intact bilaterally ENMT: Ears: + hearing impairment; no external ear abnormality Nose: no external nose abnormality Mouth: + dry oral mucous membranes Neck: no nuchal rigidity Respiratory: normal respiratory effort Auscultation: + diminished lung sounds Cardiovascular: RRR, no murmur, no edema Gastrointestinal (Abdomen): Inspection/Auscultation: normal bowel sounds Percussion/Palpation: abdomen soft; abdomen nontender Musculoskeletal: Extremities: strength 5/5 throughout Skin: no rashes, warm and dry Neurologic: streeter, fluent speech, no tremor Psychiatric: Orientation: oriented to person Results & Data ([facility]) Vital Signs (Past 12 Hours) Vital Signs Temp Pulse Resp BP Pulse Ox O2 Del Method 05/01/22 07:12 36.7 C 78 18 123/72 98 Room Air Laboratory Results 04/30/22 09:02 05/01/22 06:[address] abd/pelvis non con DECEMBER 2021 FINDINGS: Within visualized portions of the lung bases, note is made of asymmetric interlobular septal thickening and airspace opacities within the right middle and right lower lobes. No pneumatosis, free air or portal venous gas is present. Small hiatal hernia. The liver, spleen, right adrenal gland and pancreas are unremarkable. Left adrenal nodule is unchanged since CT of October 04, 2020. This is likely benign. Water attenuation bilateral renal lesions reflect cysts. There are numerous subcentimeter renal lesions which are too s mall to characterize. Multiple bilateral renal calculi are present. These measure up to 7 mm. No ureteral calculi are present. There is no hydronephrosis. Moderate atherosclerotic plaque of the abdominal aorta and branch vessels is present. There is no evidence for a bowel obstruction. Colonic diverticulosis is noted without evidence for acute diverticulitis. Appendix is not visualized. No lymphadenopathy or ascites. No acute fracture or suspicious lesion is identified within the visualized skeletal structures. IMPRESSION: 1. No acute process within the abdomen or pelvis. 2. Asymmetric interlobular septal thickening and airspace opacities within the right middle and right lower lobes. Interlobular septal thickening suggests interstitial pulmonary edema. The airspace opacities could reflect alveolar edema, pneumonia or aspiration pneumonitis. 3. Colonic diverticulosis. No evidence for acute diverticulitis. No bowel obstruction. No bowel wall thickening.
[2022-05-01 17:26] LABS: Appearance Urine Clear (Clear); Bacteria Urine Automated Negative (Negative); Bilirubin Urine Negative (Negative); Blood Urine Negative (Negative); Color Urine Yellow; Epithelial Cell Urine Auto >30 /lpf (0-5); Glucose Urine UA Negative (Negative); Ketones Urine Negative (Negative); Leukocyte Esterase Urine Negative (Negative); Nitrite Urine Negative (Negative); Protein Urine 2+ (Negative); RBC Urine Automated 0-4 /hpf (0-4); Specific Gravity Urine 1.013 (1.000-1.030); Urobilinogen Urine Negative (Negative)
[2022-05-01] MEDS: allopurinoL 300 MG TAB PO SCH (20:34)
[2022-05-01] MEDS: ESCITALOPRAM OXALATE 10 MG TAB PO SCH (20:34)
[2022-05-02] MEDS: ACETAMINOPHEN 325 MG TAB PO PRN (02:23)
[2022-05-02] MEDS: LEVOTHYROXINE SODIUM 75 MCG TABLET PO SCH (06:43)
[2022-05-02 06:59] LABS: BUN Creatinine Ratio 24.7 (10-20); Calcium 9.3 mg/dl (8.5-10.1); Creatinine Clr Calc Pharmacy 22.5 ml/min; Est GFR (African American) 35.4 ml/min; Est GFR (Non-African American) 30.6 ml/min; Phosphorus 3.9 mg/dl (2.5-4.9); Potassium 4.4 mmol/L (3.5-5.1)
[2022-05-02 08:16] LABS: Hematocrit (blood only) 33.6 % (34.1-44.9); Hemoglobin 10.9 g/dl (12.0-16.0); Mean Corpuscular Hemoglobin 31.7 pg (25.0-34.0); Mean Corpuscular Hgb Conc 32.4 g/dL (32.0-36.0); Mean Corpuscular Volume 97.7 fL (80.0-100.0); Platelet Count 312 K/uL (130-400); RDW Coefficient of Variation 15.6 % (11.5-14.5); RDW Standard Deviation 56.1 fL (36.4-46.3); Red Blood Count 3.44 M/uL (3.93-5.22); White Blood Count 8.35 K/ul (4.8-10.8)
[2022-05-02] MEDS: METOPROLOL SUCC 50MG EXT REL TAB PO SCH (08:51)
[2022-05-02] MEDS: PANTOprazole 40 MG TAB PO SCH ×2 (08:52→22:19)
[2022-05-02] MEDS: HEPARIN SOD 5,000 UNIT/0.5 ML VIAL SQ SCH ×2 (08:52→21:00)
[2022-05-02] MEDS: FOLIC ACID 1 MG TAB PO SCH (08:52)
[2022-05-02] MEDS: CEROVITE ADV FORMULA TAB PO SCH (08:52)
--- NOTE | 2022-05-02 11:08 | Hospitalist Progress Note ---
Date of Service May 02, 2022 Assessment & Plan (1) Acute UTI: Plan: Urine cx grew (per previous provider)Enterococcus faecalis resistant to penicillins. Currently on IV daptomycin, Will continue ID consulted - pending 05/01 Microbiology report corrected, Enterococcus faecium Sensitive to daptomycin, linezolid, tetracycline, Vanco Resistant to penicillin, Cipro, levofloxacin Continue IV Dapto for now, ID consult already pending History of Alzheimer dementia Delirium On Zyprexa 2.5 mg PRN for agitation Mental status improved Currently able to answer simple questions appropriately, no one-on-one sitter present at this time Diabetes Not on any DM medication. Hba1c 6.4 on 04/29/22 Continue monitor BS Chronic kidney disease stage III Creatinine 1.67 today, baseline creatinine 1.3 Will hold lisinopril and furosemide prn gentle hydration due to poor oral intake Nephrology consulted Continue monitor BMP Hypertension Continue metoprolol succinate will hold lisinopril. stable History of gout: Continue allopurinol. GERD Continue omeprazole. History of hypothyroidism Continue Synthroid. Depression Anxiety Continue Lexapro. History paroxysmal atrial tachycardia Continue metoprolol succinate. DVT px on SCD heparin subq BID Code status Full code Admission and Anticipated Discharge Date Admission Date: April 29, 2022 Subjective Patient was seen and examined for follow-up UTI Laying in bed, in no distress She was calm today and there was no 1 to 1 sitter Previous provider spoke to son over the phone and provided with update and answered all the questions Pt denies any fever, chills, chest pain, palpitation and shortness of breath She is able to answer simple questions appropriately. However gets easily confused. Review of Systems Review of Systems: All systems reviewed & are unremarkable except as noted in Subjective Physical Exam Physical Exam: General- elderly F no acute distress Head- atraumatic Eyes- PERRL, EOMI, ENT- oropharynx clear Neck- supple Lungs- clear to auscultation Heart- regular rhythm; no murmur Abdomen- normal bowel sounds, soft, nontender Extremities- no calf tenderness Neuro- alert, oriented, able to answer simple questions appropriately; PERRL, EOMI; no facial palsy; no dysarthria, move all 4 extremities Skin- warm & dry Results & Data Results & Data ([facility]) Vital Signs (Past 12 Hours) Vital Signs Temp Pulse Resp BP Pulse Ox O2 Del Method 05/02/22 08:01 36.7 C 66 16 132/79 97 Room Air 05/02/22 07:20 Room Air Laboratory Results 05/02/22 05/02/22 05/01/22 Range/Units 06:17 06:17 16:54 WBC 8.35 (4.8-10.8) K/ul RBC 3.44 L (3.93-5.22) M/uL Hgb 10.9 L (12.0-16.0) g/dl Hct 33.6 L (34.1-44.9) % MCV 97.7 (80.0-100.0) fL MCH 31.7 (25.0-34.0) pg MCHC 32.4 (32.0-36.0) g/dL RDW Std Deviation 56.1 H (36.4-46.3) fL RDW Coeff of Mis 15.6 H (11.5-14.5) % Plt Count 312 (130-400) K/uL MPV 11.0 (9.4-12.3) fL Sodium 140 (136-145) mmol/L Potassium 4.4 (3.5-5.1) mmol/L Chloride 111 H (98-107) mmol/L Carbon Dioxide 22 (21-32) mmol/L Anion Gap 7 (3-11) BUN 37 H (6-23) mg/dl Creatinine 1.50 H (0.6-1.2) mg/dl Est Cr Clr Drug Dosing 22.5 ml/min Est GFR ( Amer) 35.4 ml/min Est GFR (Non-Af Amer) 30.6 ml/min BUN/Creatinine Ratio 24.7 H (10-20) Glucose 118 H (70-99(Fasting)) mg/dl Calcium 9.3 (8.5-10.1) mg/dl Phosphorus 3.9 (2.5-4.9) mg/dl Magnesium 2.0 (1.7-2.4) mg/dl Urine Color Yellow Urine Appearance Clear (Clear) Urine pH 6.0 (4.5-7.5) Ur Specific [place] 1.013 (1.000-1.030) Urine Protein 2+ H (Negative) Urine Glucose (UA) Negative (Negative) Urine Ketones Negative (Negative) Urine Blood Negative (Negative) Urine Nitrite Negative (Negative) Urine Bilirubin Negative (Negative) Urine Urobilinogen Negative (Negative) Ur Leukocyte Esterase Negative (Negative) Urine WBC (Auto) 1-5 (0-5) /hpf Urine RBC (Auto) 0-4 (0-4) /hpf U Hyaline Cast (Auto) 1-5 (0-5) /lpf U Epithel Cells (Auto) >30 H (0-5) /lpf Urine Bacteria (Auto) Negative (Negative) Medications Administered Current Inpatient Medications Acetaminophen (Acetaminophen 325 Mg Tab) 650 mg PO Q4H PRN PRN Reason: pain/fever Stop: 05/29/22 02:57 Last Admin: 05/02/22 02:23 Dose: 650 mg Allopurinol (Allopurinol 300 Mg Tab) 150 mg PO HS SARAN Stop: 05/29/22 20:59 Last Admin: 05/01/22 20:34 Dose: 150 mg Escitalopram Oxalate (Escitalopram Oxalate 10 Mg Tab) 10 mg PO QPM SARAN Stop: 05/29/22 20:59 Last Admin: 05/01/22 20:34 Dose: 10 mg Folic Acid (Folic Acid 1 Mg Tab) 1 mg PO QAM SARAN Stop: 05/29/22 08:59 Last Admin: 05/02/22 08:52 Dose: 1 mg Furosemide (Furosemide 20 Mg Tab) 10 mg PO DAILY PRN PRN Reason: Edema Stop: 05/29/22 02:57 Heparin Sodium (Porcine) (Heparin Sod 5,000 Unit/0.5 Ml Vial) 5,000 units SQ Q12 SARAN Stop: 05/30/22 08:59 Last Admin: 05/02/22 08:52 Dose: 5,000 units Hydralazine HCl (Hydralazine Hcl 20 Mg/Ml Vial) 7.5 mg IV Q6H PRN PRN Reason: Hypertension Stop: 05/29/22 19:32 Daptomycin 400 mg/ Syringe 8 mls @ 2 mls/min IV Q48H [facility]; Protocol Stop: 05/10/22 21:59 Last Admin: 04/30/22 22:21 Dose: 2 mls/min Levothyroxine Sodium (Levothyroxine Sodium 75 Mcg Tablet) 75 mcg PO DAILYBB [facility] Stop: 05/29/22 06:29 Last Admin: 05/02/22 06:43 Dose: 75 mcg Lisinopril (Lisinopril 5 Mg Tab) 5 mg PO QAM [facility] Stop: 05/29/22 08:59 Last Admin: 04/30/22 08:53 Dose: 5 mg Loratadine (Loratadine 10 Mg Tab) 10 mg PO DAILY PRN PRN Reason: Allergy Symptoms Stop: 05/29/22 02:57 Melatonin (Melatonin 3 Mg Tab) 9 mg PO HS PRN PRN Reason: Insomnia Metoprolol Succinate (Metoprolol Succ 50mg Ext Rel Tab) 50 mg PO QAM [facility] Stop: 05/29/22 08:59 Last Admin: 05/02/22 08:51 Dose: 50 mg Multivitamins/Minerals (Cerovite Adv Formula Tab) 1 tab PO DAILY [facility] Stop: 05/29/22 08:59 Last Admin: 05/02/22 08:52 Dose: 1 tab Olanzapine (Olanzapine 10 Mg/2.1 Ml Sdv) 2.5 mg IM Q12H PRN PRN Reason: agitation Stop: 05/29/22 12:59 Last Admin: 04/29/22 13:08 Dose: 2.5 mg Ondansetron HCl (Ondansetron Inj 2 Mg/Ml 2 Ml Vial) 4 mg IV Q6H PRN PRN Reason: Nausea Stop: 05/29/22 02:57 Last Admin: 04/29/22 18:36 Dose: 4 mg Pantoprazole Sodium (Pantoprazole 40 Mg Tab) 40 mg PO BID [facility] Stop: 05/29/22 08:59 Last Admin: 05/02/22 08:52 Dose: 40 mg Polyethylene Glycol (Polyethylene (Miralax) 17 Gm Pack) 17 gm PO DAILY PRN PRN Reason: Constipation Stop: 05/29/22 02:57
--- NOTE | 2022-05-02 12:17 | Nephrology Progress Note ---
Date of Service May 02, 2022 Assessment & Plan (1) Acute on chronic renal failure: Plan: baseline creatinine 1.3 w/ otherwise acceptable chemistries. slightly improved Stage 1 TENNILLE on CKD3, ATN versus prerenal. volume status seems ok as are chemistries apart from mild NAGMA -NS has since been stopped and agree w/ holding it for now; encourage po -recheck UACM reassuring for no ATN or other inflammation -daily bmp -cont to hold lisinopril for now >>>need to record # of voids > I/O charting appreciated -no indication for renal imaging at this time Will sign off; pls call if ?. Recommend daily bmp while in house; resume lisinopril when kidney function to baseline or at d/c; recheck bmp 1 wk after d/c; no OP nephro f/u needed. Admission and Anticipated Discharge Date Admission Date: April 29, 2022 Subjective no interval events. more confused today - calling out; worried about her son not coming to pick her up and losing him and about being put in small bed. Review of Systems 2 Review of Systems: Unobtainable due to cognitive status Physical Exam Constitutional: well developed, well nourished, + frail appearing and cooperative; no acute distress Eyes: EOM intact bilaterally ENMT: Ears: + hearing impairment; no external ear abnormality Nose: no external nose abnormality Mouth: + dry oral mucous membranes Neck: no nuchal rigidity Respiratory: normal respiratory effort Auscultation: + diminished lung sounds Cardiovascular: RRR, no murmur, no edema Gastrointestinal (Abdomen): Inspection/Auscultation: normal bowel sounds Percussion/Palpation: abdomen soft; abdomen nontender Musculoskeletal: Extremities: strength 5/5 throughout Skin: no rashes, warm and dry Psychiatric: Orientation: oriented to person Results & Data ([facility]) Vital Signs (Past 12 Hours) Vital Signs Temp Pulse Resp BP Pulse Ox O2 Del Method 05/02/22 08:01 36.7 C 66 16 132/79 97 Room Air 05/02/22 07:20 Room Air Laboratory Results 05/02/22 06:17 05/02/22 06:17
[2022-05-02] MEDS: DAPTOmycin 400 MG in SYRINGE 0 ML IV SCH (22:17)
[2022-05-02] MEDS: allopurinoL 300 MG TAB PO SCH (22:18)
[2022-05-02] MEDS: ESCITALOPRAM OXALATE 10 MG TAB PO SCH (22:19)
--- NOTE | 2022-05-02 22:23 | Communication Note ---
Date of Service: May 02, 2022 Called by nurse regarding a fall after getting off the bedside commode. Patient didn't let go of the commode, lost her balance and fell. She hit her head above her left eye and has left shoulder, left hip and left elbow pain. Head CT 05/02/22 22:31 CT SCAN OF THE BRAIN WITHOUT IV CONTRAST CLINICAL HISTORY: Fall. Head injury. COMPARISON STUDY: CT of the brain dated 04/25/2022. MRI of the brain dated 12/19/2007. TECHNIQUE: Unenhanced axial CT scan of the brain is performed from the vertex to the skull base. A dose lowering technique was utilized adhering to the principles of ALARA. CT DOSE: 614.27 mGy.cm FINDINGS: Brain parenchyma: There is age-related involutional change noting mild subcortical and periventricular microangiopathic disease. 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 There is no hemorrhage, mass effect, or evidence of acute territorial ischemia by CT criteria. Lee-white matter differentiation is preserved. No extra-axial fluid collection is seen. Ventricles, sulci, cisterns: Prominent secondary to involutional change. Intracranial vasculature: There is atherosclerotic calcification of the cavernous carotid arteries. Calvarium: The skeletal structures are osteopenic. No depressed calvarial fracture is identified. Soft tissues: There is a small left frontal scalp contusion. Sinuses and mastoids: The visualized paranasal sinuses are clear. The mastoid air cells are well pneumatized. Orbits: The bony orbits are grossly intact. There are bilateral ocular lens implants. IMPRESSION: 1. There is no hemorrhage, mass effect, or evidence of acute territorial ischemia by CT criteria. 2. 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 ACT 112: Negative or not required by law. Electronically signed by: Dashawn Page M.D. 05/03/2022 7:27 AM Hip X-Ray 05/02/22 22:31 XR hip LT min 2V CLINICAL HISTORY: fell in room. Left hip pain. COMPARISON STUDY: Pelvis 03/14/2019. FINDINGS: No fracture or dislocation within the left hip. The visualized pelvic bones are intact. Soft tissues are unremarkable. Mild osteoarthritis within the left hip. IMPRESSION: No fractures within the left hip. ACT 112: Negative or not required by law. Electronically signed by: Alan Hernandez M.D. 05/03/2022 8:04 AM Knee X-Ray 05/02/22 22:31 XR knee LT 3V CLINICAL HISTORY: fell in room and hip L hip/knee with residual pain COMPARISON STUDY: None. FINDINGS: The bones are osteopenic. Mild osteoarthritis at the medial compartment of the left knee with faint chondrocalcinosis. No fracture or dislocation. No knee effusion. IMPRESSION: No fracture or dislocation within the left knee. ACT 112: Negative or not required by law. Electronically signed by: Alan Hernandez M.D. 05/03/2022 8:16 AM No acute changes or fracture. Patient is mentating well. No further workup after fall at this time. Kylee Patel DO [facility] Hospitalist
[2022-05-03] MEDS: LEVOTHYROXINE SODIUM 75 MCG TABLET PO SCH (06:39)
--- NOTE | 2022-05-03 07:30 | CT Scan Report ---
CT SCAN OF THE BRAIN WITHOUT IV CONTRAST CLINICAL HISTORY: Fall. Head injury. COMPARISON STUDY: CT of the brain dated 04/25/2022. MRI of the brain dated 12/19/2007. TECHNIQUE: Unenhanced axial CT scan of the brain is performed from the vertex to the skull base. A do se lowering technique was utilized adhering to the principles of ALARA. CT DOSE: 614.27 mGy.cm FINDINGS: Brain parenchyma: There is age-related involutional change noting mild subcortical and periventricula r microangiopathic disease. A 1.7 cm extra-axial mass is again seen in the right cerebellar pontine a ngle adjacent to the brainstem on image #7. There is no hemorrhage, mass effect, or evidence of acute territorial ischemia by CT criteria. Lee-white matter differentiation is preserved. No extra-axial fluid collection is seen. Ventricles, sulci, cisterns: Prominent secondary to involutional change. Intracranial vasculature: There is atherosclerotic calcification of the cavernous carotid arteries. Calvarium: The skeletal structures are osteopenic. No depressed calvarial fracture is identified. Soft tissues: There is a small left frontal scalp contusion. Sinuses and mastoids: The visualized paranasal sinuses are clear. The mastoid air cells are well pneu matized. Orbits: The bony orbits are grossly intact. There are bilateral ocular lens implants. IMPRESSION: 1. There is no hemorrhage, mass effect, or evidence of acute territorial ischemia by CT criteria. 2. 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 ACT 112: Negative or not required by law. Electronically signed by: Dashawn Page M.D. 05/03/2022 7:27 AM
--- NOTE | 2022-05-03 08:05 | XRay Report ---
XR hip LT min 2V CLINICAL HISTORY: fell in room. Left hip pain. COMPARISON STUDY: Pelvis 03/14/2019. FINDINGS: No fracture or dislocation within the left hip. The visualized pelvic bones are intact. Sof t tissues are unremarkable. Mild osteoarthritis within the left hip. IMPRESSION: No fractures within the left hip. ACT 112: Negative or not required by law. Electronically signed by: Alan Hernandez M.D. 05/03/2022 8:04 AM
--- NOTE | 2022-05-03 08:17 | XRay Report ---
XR knee LT 3V CLINICAL HISTORY: fell in room and hip L hip/knee with residual pain COMPARISON STUDY: None. FINDINGS: The bones are osteopenic. Mild osteoarthritis at the medial compartment of the left knee wi th faint chondrocalcinosis. No fracture or dislocation. No knee effusion. IMPRESSION: No fracture or dislocation within the left knee. ACT 112: Negative or not required by law. Electronically signed by: Alan Hernandez M.D. 05/03/2022 8:16 AM
[2022-05-03] MEDS: FOLIC ACID 1 MG TAB PO SCH (09:25)
[2022-05-03] MEDS: METOPROLOL SUCC 50MG EXT REL TAB PO SCH (09:25)
[2022-05-03] MEDS: PANTOprazole 40 MG TAB PO SCH ×2 (09:26→20:15)
[2022-05-03] MEDS: CEROVITE ADV FORMULA TAB PO SCH (09:26)
[2022-05-03] MEDS: HEPARIN SOD 5,000 UNIT/0.5 ML VIAL SQ SCH ×2 (09:27→20:15)
[2022-05-03 11:08] LABS: BUN Creatinine Ratio 23.8 (10-20); Calcium 9.7 mg/dl (8.5-10.1); Est GFR (African American) 42.1 ml/min; Est GFR (Non-African American) 36.3 ml/min; Potassium 4.7 mmol/L (3.5-5.1)
--- NOTE | 2022-05-03 12:36 | Hospitalist Progress Note ---
Date of Service May 03, 2022 Assessment & Plan (1) Acute UTI: Plan: Urine cx grew (per previous provider)Enterococcus faecalis resistant to penicillins. Currently on IV daptomycin, Will continue ID consulted - pending 05/01 Microbiology report corrected, Enterococcus faecium Sensitive to daptomycin, linezolid, tetracycline, Vanco Resistant to penicillin, Cipro, levofloxacin Continue IV Dapto for now, ID consult already pending 05/03 -discussed with ID physician, p.o. option would not be ideal for the patient. plan to continue IV daptomycin as she is almost done with the course. Usually this would be treated for 5 to 7 days. Plan for 1 more dose tomorrow, and she could be possibly discharged Discussed the plan with patient's son at the bedside as well History of Alzheimer dementia Delirium On Zyprexa 2.5 mg PRN for agitation Mental status improved Currently able to answer simple questions appropriately, no one-on-one sitter present at this time Diabetes Not on any DM medication. Hba1c 6.4 on 04/29/22 Continue monitor BS Chronic kidney disease stage III Creatinine 1.67 today, baseline creatinine 1.3 Will hold lisinopril and furosemide prn gentle hydration due to poor oral intake Nephrology consulted Continue monitor BMP Hypertension Continue metoprolol succinate will hold lisinopril. stable History of gout: Continue allopurinol. GERD Continue omeprazole. History of hypothyroidism Continue Synthroid. Depression Anxiety Continue Lexapro. History paroxysmal atrial tachycardia Continue metoprolol succinate. DVT px on SCD heparin subq BID Code status Full code Admission and Anticipated Discharge Date Admission Date: April 29, 2022 Subjective Patient was seen and examined for follow-up UTI Sitting up in chair, in no distress there was no 1 to 1 sitter Patient's son present at the bedside and updated Pt denies any fever, chills, chest pain, palpitation and shortness of breath She is able to answer simple questions appropriately. However gets easily confused. Fell overnight, x-rays CT obtained, negative, see rails developer's note for further detail. Review of Systems Review of Systems: All systems reviewed & are unremarkable except as noted in Subjective Physical Exam Physical Exam: General- elderly F no acute distress Head- atraumatic Eyes- PERRL, EOMI, ENT- oropharynx clear Neck- supple Lungs- clear to auscultation Heart- regular rhythm; no murmur Abdomen- normal bowel sounds, soft, nontender Extremities- no calf tenderness Neuro- alert, oriented, able to answer simple questions appropriately; PERRL, EOMI; no facial palsy; no dysarthria, move all 4 extremities Skin- warm & dry Results & Data Results & Data ([facility]) Vital Signs (Past 12 Hours) Vital Signs Temp Pulse Resp BP Pulse Ox O2 Del Method 05/03/22 08:30 Room Air 05/03/22 07:37 36.8 C 64 18 125/72 95 Room Air
[2022-05-03] MEDS: allopurinoL 300 MG TAB PO SCH (20:14)
[2022-05-03] MEDS: ESCITALOPRAM OXALATE 10 MG TAB PO SCH (20:15)
[2022-05-03] MEDS: OLANZapine 10 MG/2.1 ML SDV IM PRN (23:18)
[2022-05-03] MEDS ORDERED: LORazepam 0.25 MG in SYRINGE 0.125 ML IV STA (23:20)
[2022-05-04] MEDS ORDERED: OLANZapine 10 MG/2.1 ML SDV IM STA (00:02)
[2022-05-04] MEDS ORDERED: LORazepam 0.25 MG in SYRINGE 0.125 ML IV STA ×2 (01:14→02:23)
[2022-05-04] MEDS: LEVOTHYROXINE SODIUM 75 MCG TABLET PO SCH (06:42)
--- NOTE | 2022-05-04 07:43 | Hospitalist Progress Note ---
Date of Service May 04, 2022 Assessment & Plan (1) Acute UTI: Plan: Urine cx grew (per previous provider)Enterococcus faecalis resistant to penicillins. Currently on IV daptomycin, Will continue ID consulted 05/01 Microbiology report corrected, Enterococcus faecium Sensitive to daptomycin, linezolid, tetracycline, Vanco Resistant to penicillin, Cipro, levofloxacin Continue IV Dapto for now, ID consult already pending 05/03 -discussed with ID physician, p.o. option would not be ideal for the patient. plan to continue IV daptomycin as she is almost done with the course. Usually this would be treated for 5 to 7 days. Plan for 1 more dose tomorrow, and she could be possibly discharged Discussed the plan with patient's son at the bedside as well 05/04 -received IV daptomycin, plan to discharge later today History of Alzheimer dementia Delirium On Zyprexa 2.5 mg PRN for agitation Mental status seems to be at baseline during the day, especially when son present. However patient gets confused and agitated overnight. Diabetes Not on any DM medication. Hba1c 6.4 on 04/29/22 Continue monitor BS Chronic kidney disease stage III Creatinine 1.67 today, baseline creatinine 1.3 Will hold lisinopril and furosemide prn gentle hydration due to poor oral intake Nephrology consulted Continue monitor BMP Hypertension Continue metoprolol succinate will hold lisinopril. stable History of gout: Continue allopurinol. GERD Continue omeprazole. History of hypothyroidism Continue Synthroid. Depression Anxiety Continue Lexapro. History paroxysmal atrial tachycardia Continue metoprolol succinate. DVT px on SCD Code status Full code Admission and Anticipated Discharge Date Admission Date: April 29, 2022 Subjective Patient was seen and examined for follow-up UTI Laying in bed, in no acute distress Overnight patient was again agitated, fell, also required Zyprexa Repeat CT scan of head this morning, negative for any acute pathology Patient's son updated Review of Systems Review of Systems: Unobtainable due to cognitive status Physical Exam Physical Exam: General- elderly F no acute distress Head- atraumatic Eyes- PERRL, EOMI, ENT- oropharynx clear Neck- supple Lungs- clear to auscultation Heart- regular rhythm; no murmur Abdomen- normal bowel sounds, soft, nontender Extremities- no calf tenderness Neuro- alert, oriented, able to answer simple questions appropriately; PERRL, EOMI; no facial palsy; no dysarthria, move all 4 extremities Skin- warm & dry Results & Data Results & Data ([facility]) Vital Signs (Past 12 Hours) Vital Signs Temp Pulse Resp BP Pulse Ox O2 Del Method 05/03/22 19:50 36.9 C 111 H 18 139/85 99 Room Air Medications Administered Current Inpatient Medications Acetaminophen (Acetaminophen 325 Mg Tab) 650 mg PO Q4H PRN PRN Reason: pain/fever Stop: 05/29/22 02:57 Last Admin: 05/02/22 02:23 Dose: 650 mg Allopurinol (Allopurinol 300 Mg Tab) 150 mg PO HS SARAN Stop: 05/29/22 20:59 Last Admin: 05/03/22 20:14 Dose: 150 mg Escitalopram Oxalate (Escitalopram Oxalate 10 Mg Tab) 10 mg PO QPM [facility] Stop: 05/29/22 20:59 Last Admin: 05/03/22 20:15 Dose: 10 mg Folic Acid (Folic Acid 1 Mg Tab) 1 mg PO QAM [facility] Stop: 05/29/22 08:59 Last Admin: 05/03/22 09:25 Dose: Not Given Furosemide (Furosemide 20 Mg Tab) 10 mg PO DAILY PRN PRN Reason: Edema Stop: 05/29/22 02:57 Heparin Sodium (Porcine) (Heparin Sod 5,000 Unit/0.5 Ml Vial) 5,000 units SQ Q12 [facility] Stop: 05/30/22 08:59 Last Admin: 05/03/22 20:15 Dose: Not Given Hydralazine HCl (Hydralazine Hcl 20 Mg/Ml Vial) 7.5 mg IV Q6H PRN PRN Reason: Hypertension Stop: 05/29/22 19:32 Daptomycin 400 mg/ Syringe 8 mls @ 2 mls/min IV Q48H SARAN; Protocol Stop: 05/10/22 21:59 Last Admin: 05/02/22 22:17 Dose: 2 mls/min Levothyroxine Sodium (Levothyroxine Sodium 75 Mcg Tablet) 75 mcg PO DAILYBB [facility] Stop: 05/29/22 06:29 Last Admin: 05/04/22 06:42 Dose: 75 mcg Lisinopril (Lisinopril 5 Mg Tab) 5 mg PO QAM [facility] Stop: 05/29/22 08:59 Last Admin: 04/30/22 08:53 Dose: 5 mg Loratadine (Loratadine 10 Mg Tab) 10 mg PO DAILY PRN PRN Reason: Allergy Symptoms Stop: 05/29/22 02:57 Melatonin (Melatonin 3 Mg Tab) 9 mg PO HS PRN PRN Reason: Insomnia Metoprolol Succinate (Metoprolol Succ 50mg Ext Rel Tab) 50 mg PO QAM SARAN Stop: 05/29/22 08:59 Last Admin: 05/03/22 09:25 Dose: Not Given Multivitamins/Minerals (Cerovite Adv Formula Tab) 1 tab PO DAILY SARAN Stop: 05/29/22 08:59 Last Admin: 05/03/22 09:26 Dose: Not Given Olanzapine (Olanzapine 10 Mg/2.1 Ml Sdv) 2.5 mg IM Q12H PRN PRN Reason: agitation Stop: 05/29/22 12:59 Last Admin: 05/03/22 23:18 Dose: 2.5 mg Ondansetron HCl (Ondansetron Inj 2 Mg/Ml 2 Ml Vial) 4 mg IV Q6H PRN PRN Reason: Nausea Stop: 05/29/22 02:57 Last Admin: 04/29/22 18:36 Dose: 4 mg Pantoprazole Sodium (Pantoprazole 40 Mg Tab) 40 mg PO BID SARNA Stop: 05/29/22 08:59 Last Admin: 05/03/22 20:15 Dose: 40 mg Polyethylene Glycol (Polyethylene (Miralax) 17 Gm Pack) 17 gm PO DAILY PRN PRN Reason: Constipation Stop: 05/29/22 02:57
[2022-05-04] MEDS: DAPTOmycin 400 MG in SYRINGE 0 ML IV SCH (11:28)
[2022-05-04] MEDS: HEPARIN SOD 5,000 UNIT/0.5 ML VIAL SQ SCH (11:38)
[2022-05-04] MEDS: METOPROLOL SUCC 50MG EXT REL TAB PO SCH (11:38)
[2022-05-04] MEDS: PANTOprazole 40 MG TAB PO SCH (11:38)
[2022-05-04] MEDS: FOLIC ACID 1 MG TAB PO SCH (11:39)
[2022-05-04] MEDS: CEROVITE ADV FORMULA TAB PO SCH (11:39)
--- NOTE | 2022-05-04 14:16 | CT Scan Report ---
CT head/brain wo con CLINICAL HISTORY: fall Technique: Contiguous axial CT images of the head were acquired from the base of the skull to the diandra katiuska without intravenous contrast administration. Images were viewed in brain, [facility] . Automated dose lowering techniques and/or adjustment according to patient size were utilized for this exam. Comparison: Comparison is made to CT head 05/02/2022 Findings: Areas of decreased attenuation are present in the periventricular and subcortical white matter bilate rally consistent with small vessel ischemic disease. Generalized cerebral atrophy with commensurate e nlargement of the ventricles, sulci, and cisterns is also present. There is no acute intracranial hem orrhage or evidence of acute territorial infarction. No shift of the midline structures, mass effect, or extra-axial abnormalities are shown. Atherosclerotic calcifications are present in the intracran ial segments of the internal carotid arteries. Previously noted right cerebellopontine mass is unchan ged in appearance compatible with history of acoustic neuroma. Imaged portions of the paranasal sinuses and mastoid air cells are clear. The orbits appear normal. There are no acute fractures of the calvaria. Soft tissue swelling is seen in the left supraorbital soft tissues Impression: No acute intracranial hemorrhage or skull fractures. Scalp swelling is seen in the left supraorbital soft tissues. ACT 112: Negative or not required by law. Electronically signed by: Chapin Huff M.D. 05/04/2022 2:14 PM
--- NOTE | 2022-05-04 15:07 | Discharge Summary ---
Date of Service May 04, 2022 Admission HPI Per Admitting Provider This is an 89-year-old female with past medical history significant for type 2 diabetes, currently not on any medications, benign neoplasm of adrenal gland, hyperlipidemia, hypothyroidism, hypertension, paroxysmal atrial tachycardia, GERD, chronic kidney disease stage III, history of acoustic neuroma, mild dementia with Alzheimer disease, history of bladder cancer, depression, generalized anxiety disorder, was recently here with a UTI. She was discharged on antibiotics, but cultures came back with Enterococcus resistant to penicillins. Given a dose of daptomycin in the ER. The patient is somewhat hard of hearing, but alert and oriented, she says she uses a wheelchair, but she rolls the wheels by her hands. She says she fell a couple of times and complains of pain and bruises in the extremities and the face. Denies any headache. Says vision is not great. Hearing not great. No sore throat. No cough. Afebrile. No chest pain. Denies shortness of breath. Denies nausea or abdominal pain. She takes some stool softeners, she says her bowels are moving okay. Appetite is okay. She says she can chew okay and she is eating okay. Admission Exam Per Admitting Provider GENERAL: The patient is old and frail, hard of hearing, not in acute distress. VITAL SIGNS: Temperature 37.2, pulse 83, respiratory rate 16, blood pressure 158/80, oxygen 97% on room air. HEENT: Pupils equal, round and reactive to light. Oral mucosa moist. NECK: No JVD or neck masses. CARDIOVASCULAR: S1 and S2 heard. Regular rate and rhythm. No murmur, no gallop. RESPIRATORY SYSTEM: Normal AP diameter. No accessory muscle use. No wheezing, no crackles. ABDOMEN: Soft, bowel sounds present, nontender, no distention. CENTRAL NERVOUS SYSTEM: Alert and oriented. No facial droop. Speech is okay, hard of hearing, but insight is okay. Answers appropriately. Obeys simple commands. Moves extremities. EXTREMITIES: No edema, no erythema. Principal Diagnosis Enterococcal UTI Delirium secondary to dementia Discharge Exam General- elderly F no acute distress Head- atraumatic Eyes- PERRL, EOMI, ENT- oropharynx clear Neck- supple Lungs- clear to auscultation Heart- regular rhythm; no murmur Abdomen- normal bowel sounds, soft, nontender Extremities- no calf tenderness Neuro- alert, oriented, able to answer simple questions appropriately; PERRL, EOMI; no facial palsy; no dysarthria, move all 4 extremities Skin- warm & dry Discharge Data Allergies Allergy/AdvReac Type Severity Reaction Status Date / Time amoxicillin Allergy ITCHING Unverified 04/28/22 22:30 mirtazapine AdvReac Intermediate Increased Verified 04/28/22 22:29 Anxiety morphine AdvReac Intermediate NAUSEA Verified 04/28/22 22:29 oxycodone AdvReac Intermediate GI SYMPTOMS Verified 04/28/22 22:29 Consultations 04/29/22 01:01 ED Decision to Admit Stat 04/29/22 12:47 Consult Infectious Diseases Routine 05/01/22 10:25 Consult Nephrology Routine Ordered Studies 05/02/22 22:31 CT head/brain wo con Urgent FINDINGS: Brain parenchyma: There is age-related involutional change noting mild subcortical and periventricular microangiopathic disease. 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 There is no hemorrhage, mass effect, or evidence of acute territorial ischemia by CT criteria. Lee-white matter differentiation is preserved. No extra-axial fluid collection is seen. Ventricles, sulci, cisterns: Prominent secondary to involutional change. Intracranial vasculature: There is atherosclerotic calcification of the cavernous carotid arteries. Calvarium: The skeletal structures are osteopenic. No depressed calvarial fracture is identified. Soft tissues: There is a small left frontal scalp contusion. Sinuses and mastoids: The visualized paranasal sinuses are clear. The mastoid air cells are well pneumatized. Orbits: The bony orbits are grossly intact. There are bilateral ocular lens implants. IMPRESSION: 1. There is no hemorrhage, mass effect, or evidence of acute territorial ischemia by CT criteria. 2. 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 05/04/22 07:14 CT head/brain wo con Urgent Findings: Areas of decreased attenuation are present in the periventricular and subcortical white matter bilaterally consistent with small vessel ischemic disease. Generalized cerebral atrophy with commensurate enlargement of the ventricles, sulci, and cisterns is also present. There is no acute intracranial hemorrhage or evidence of acute territorial infarction. No shift of the midline structures, mass effect, or extra-axial abnormalities are shown. Atherosclerotic calcifications are present in the intracranial segments of the internal carotid arteries. Previously noted right cerebellopontine mass is unchanged in appearance compatible with history of acoustic neuroma. Imaged portions of the paranasal sinuses and mastoid air cells are clear. The orbits appear normal. There are no acute fractures of the calvaria. Soft tissue swelling is seen in the left supraorbital soft tissues Impression: No acute intracranial hemorrhage or skull fractures. Scalp swelling is seen in the left supraorbital soft tissues. Hospital Course (1) Acute UTI: Urine cx grew (per previous provider)Enterococcus faecalis resistant to penicillins. Currently on IV daptomycin, Will continue ID consulted 05/01 Microbiology report corrected, Enterococcus faecium Sensitive to daptomycin, linezolid, tetracycline, Vanco Resistant to penicillin, Cipro, levofloxacin Continue IV Dapto for now, ID consult already pending 05/03 -discussed with ID physician, p.o. option would not be ideal for the patient. plan to continue IV daptomycin as she is almost done with the course. Usually this would be treated for 5 to 7 days. Plan for 1 more dose tomorrow, and she could be possibly discharged Discussed the plan with patient's son at the bedside as well 05/04 -received IV daptomycin, plan to discharge later today History of Alzheimer dementia Delirium On Zyprexa 2.5 mg PRN for agitation Mental status seems to be at baseline during the day, especially when son present. However patient gets confused and agitated overnight. Diabetes Not on any DM medication. Hba1c 6.4 on 04/29/22 Continue monitor BS Chronic kidney disease stage III Creatinine 1.67 today, baseline creatinine 1.3 Will hold lisinopril and furosemide prn gentle hydration due to poor oral intake Nephrology consulted Continue monitor BMP Hypertension Continue metoprolol succinate will hold lisinopril. stable History of gout: Continue allopurinol. GERD Continue omeprazole. History of hypothyroidism Continue Synthroid. Depression Anxiety Continue Lexapro. History paroxysmal atrial tachycardia Continue metoprolol succinate. Total Time Total Time Spent Total Time Spent (In Minutes): 40 Discharge Plan Discharge Items Patient Disposition: Home - Self-Care Reason For Visit: UTI WITH RESISTANT BACTERIA Discharge Diagnosis: Enterococcal UTI Delirium secondary to dementia Condition on Discharge: Good Activity: Per Instructions section Non-emergency contact: Primary Care Provider Call non-emergency contact if: you have any medication questions and your symptoms worsen Follow-up/Referrals: Jeff Good, [Primary Care Provider] - Diet: Carb Consistent or DM2 and Heart Healthy Diet Texture: Mechanical soft (ground) Addtl Attending Provider Instructions: Follow-up with primary care doctor within 1 week. You may also need to follow-up with ophthalmology/eye doctor. Pending Studies at Discharge: No Stand-Alone Forms: [facility], Smoking Cessation Medications and DC Order Prescriptions: Continued metoprolol succinate 50 mg tablet extended release 24 hr 50 mg PO QAM omeprazole 40 mg capsule,delayed release(DR/EC) 40 mg PO BID folic acid 1 mg tablet 1 mg PO QAM allopurinol 300 mg tablet 300 mg PO HS lisinopril 5 mg tablet 5 mg PO QAM acetaminophen [Tylenol Extra Strength] 500 mg Tablet 500 - 1,000 mg PO DIRECTED PRN (Reason: PAIN/FEVER) levothyroxine 75 mcg tablet 75 mcg PO QAM furosemide 20 mg tablet 10 mg PO DAILY PRN (Reason: Edema) Vicks DayQuil Cold-Flu Relief 5-10-325 mg Capsule 1 cap PO DIRECTED PRN (Reason: COLD/CONGESTION SYMPTOMS) Sheila[place] Plus Sinus-Cough 5-10-325 mg Capsule 1 cap PO DIRECTED PRN (Reason: COLD/CONGESTION SYMPTOMS) Women's 50 Plus Multivitamin 400 mcg-500 mg calcium-20 mcg Tablet 1 tab PO DAILY loratadine 10 mg Tablet 10 mg PO DAILY PRN (Reason: Allergy Symptoms) escitalopram oxalate 10 mg tablet 10 mg PO QPM melatonin 10 mg Tablet 10 mg PO HS PRN (Reason: Insomnia) Discontinued cephalexin 500 mg Capsule 500 mg PO TID Rx Instructions: BEGIN 04/25/22 X 7 DAYS Discharge Orders: Discharge Order (Routine); Ordered 05/04/22 Ordered By: Winston Lopez/Other Patient Handouts: A1C Admission Data Admit Date/Time: 04/29/22 02:01 Attending Provider: Winston Cervantes Admit Provider: Richard Monique Primary Care Provider: Jeff Good Other Providers: Richard Monique ; Maksim Castro ; Jennyfer Spaulding ; Seth Masters I. ; Mo Myers II ; Sondra Yang ; iMguel Belcher ; Shun Rosa ; Ida Seymour
== END 2022-05-04 16:07 | disposition home or self-care (01) | DRG 690 ==
LOC: ED 20:48 → SUATTDRO 04-29 02:01 → 3E 04-29 02:01

== ENCOUNTER 2022-05-05 21:41 | Inpatient (IN) ==
[2022-05-05] MEDS ORDERED: SODIUM CHLORIDE 0.9% 1000ML 1,000 ML IV STA (22:03)
[2022-05-05 22:12] LABS: Basophils # (auto) 0.11 K/uL (0-0.2); Basophils % (auto) 0.8 %; Eosinophils # (auto) 0.38 K/uL (0-0.50); Eosinophils % (auto) 2.7 %; Hematocrit (blood only) 36.9 % (34.1-44.9); Immature Granulocytes # (auto) 0.05 K/uL (0.00-0.02); Immature Granulocytes % (auto) 0.4 %; Lymphocytes # (auto) 2.58 K/uL (1.2-3.4); Lymphocytes % (auto) 18.5 %; Mean Corpuscular Hemoglobin 31.6 pg (25.0-34.0); Mean Corpuscular Hgb Conc 32.5 g/dL (32.0-36.0); Mean Corpuscular Volume 97.1 fL (80.0-100.0); Mean Platelet Volume 10.8 fL (9.4-12.3); Monocytes # (auto) 1.02 K/uL (0.24-0.82); Monocytes % (auto) 7.3 %; Neutrophils # (auto) 9.77 K/uL (1.4-6.5); Neutrophils % (auto) 70.3 %; Platelet Count 357 K/uL (130-400); RDW Coefficient of Variation 15.5 % (11.5-14.5); RDW Standard Deviation 55.8 fL (36.4-46.3); White Blood Count 13.91 K/ul (4.8-10.8)
[2022-05-05 22:33] LABS: Alanine Aminotransferase 15 U/L (7-52); Albumin Globulin Ratio 1.4 (0.9-2); Albumin Level 4.3 gm/dl (3.4-5.0); Alkaline Phosphatase 90 U/L (34-104); Anion Gap 14 (3-11); Aspartate Aminotransferase 21 U/L (13-39); BUN Creatinine Ratio 14.7 (10-20); Bilirubin,Total 0.3 mg/dl (0.2-1.0); Blood Urea Nitrogen 55 mg/dl (6-23); Calcium 9.8 mg/dl (8.5-10.1); Carbon Dioxide 18 mmol/L (21-32); Chloride 107 mmol/L (98-107); Est GFR (African American) 11.7 ml/min; Est GFR (Non-African American) 10.1 ml/min; Globulin 3.1 gm/dl (2.5-4.0); Glucose 186 mg/dl (70-99(Fasting)); Lipase 65 U/L (11-82); Potassium 4.6 mmol/L (3.5-5.1); Sodium 139 mmol/L (136-145); Total Protein 7.4 gm/dl (6.0-8.3)
[2022-05-05] MEDS ORDERED: LORazepam 2 MG/1 ML VIAL ONE (22:44)
[2022-05-05] MEDS ORDERED: SODIUM CHLORIDE 0.9% 1000ML 500 ML IV ONE (22:44)
[2022-05-05] MEDS: LORazepam 2 MG/1 ML VIAL IV PRN ×3 (22:48→23:15)
[2022-05-05 22:50] LABS: Appearance Urine Clear (Clear); Bacteria Urine Automated Negative (Negative); Bilirubin Urine Negative (Negative); Blood Urine Negative (Negative); Color Urine Dark Yellow; Epithelial Cell Urine Auto >30 /lpf (0-5); Glucose Urine UA Negative (Negative); Ketones Urine Trace (Negative); Leukocyte Esterase Urine 1+ (Negative); Nitrite Urine Negative (Negative); Protein Urine 2+ (Negative); RBC Urine Automated 0-4 /hpf (0-4); Specific Gravity Urine 1.017 (1.000-1.030); Urobilinogen Urine Negative (Negative)
--- NOTE | 2022-05-05 22:57 | Emergency Department Note ---
Impression & Plan AMS (altered mental status), Leukocytosis, TENNILLE (acute kidney injury) ED Provider Note INFORMANT: Patient and family ED PROVIDER(S): Price Romero MD CHIEF COMPLAINT: Change in mental status PLAN: Disposition: Admitted Condition: Good Outpatient prescription management: none Referral: None MEDICAL DECISION MAKING: Patient presented because of change in mental status. She has a history of dementia. Family states that she had become very unruly and were very concerned about her safety this evening. The patient did require significant redirection by staff. After verbal redirection did not help she did require sedation and restraint temporarily. She was given several doses of IV Ativan and 1 dose of Haldol 1 mg IV. This did help nicely with her agitation and threatening Staff. Soft restraints were discontinued. The patient's blood work revealed a leukocytosis, TENNILLE, and an elevated troponin. She has an abnormal urinalysis by catheter specimen. Patient was also sent for CT imaging. No acute process was found. I did discuss admission to the hospital with the family. She was empirically covered with broad-spectrum antibiotics, vancomycin and cefepime. Further management will be necessary in the hospital. The patient did have a mildly low blood pressures and was given gentle fluid boluses. Family noted she did not have good oral intake and I suspect that she is mildly dry. Consultation was made with the [facility] service. Patient was evalu ated in the ER management. Triage Nursing notes reviewed and agree them. Vital Signs: reviewed and remarkable for no significant abnormalities Differential diagnosis: Infection, hypoglycemia, electrolyte abnormalities, overdose, toxicologic, cardi ac sources, intracerebral event, neurologic, trauma, as well as other pathologies. Diagnostics interpreted by me: ECG: Twelve-lead ECG #1 reveals sinus tachycardia 111 beats degree block. There is a QTC of 460 ms. Inferior Q waves present. No ST elevation. Twelve-lead ECG #2: Sinus rhythm with a first-degree AV block. QTc 462. Inferior Q waves present. No T wave abnormalities. No change from #1. Cardiac Monitoring: Cardiac monitoring ordered by me: The patient was placed on continuous cardiac monitoring and observed. It revealed a normal sinus rhythm at 60 beats per minute without ectopy or evidence of dysrhythmia. Imaging studies: Head CT: A noncontrast CT scan of the head was performed and was negative for tumor, fracture, intracranial hemorrhage, or other acute pathology. HPI: The patient is a 89year old female with a history of dementia who presents to the Emergency Room with mental status per family. This started tonight and is testing. Family denies any trauma. She has a history of dementia and has had similar issues in the past. She was recently admitted to the hospital for a UTI and was discharged yesterday. Family states yesterday was going relatively well. The patient also notes the following associated symptoms, none. The patient has given no medication relieving factors. Current pain is rated as 0/10. History is limited secondary to mental status and dementia. ROS: See above HPI for pertinent positives & negatives. Limited secondary to medical acuity. PAST MEDICAL HISTORY:See Below , dementia, UTI, TENNILLE PAST SURGICAL HISTORY:See Below, FAMILY HISTORY:See Below SOCIAL HISTORY:See Below, lives with son HOME MEDICATIONS:See Below ALLERGIES:See Below VITALS:See Below PHYSICAL EXAMINATION: GENERAL: Awake, alert, agitated-appearing, in no distress HENT: Normocephalic, atraumatic. Oropharynx unremarkable. EYES: Normal conjunctiva. Sclera non-icteric. NECK: Inspection normal. Non-tender. Supple. No nuchal rigidity. FROM. No masses. RESPIRATORY: Clear to auscultation. No wheezes. No rales. Normal respiratory effort. CARDIAC: Normal rate. Normal rhythm. No murmurs. No rubs. Extremities warm and well perfused. Pulses equal. No JVD. GI: Soft, non-distended. No tenderness to palpation. No rebound or guarding. No masses. RECTAL: Deferred. MUSCULOSKELETAL: Atraumatic. Chest examination reveals no tenderness. The back is symmetrical on inspection without obvious abnormality. There is no CVA tenderness to palpation. No joint edema. LOWER EXTREMITIES: Calves are equal size bilaterally and non-tender. No edema. No discoloration. NEURO: Demented sensorium. Right facial droop noted. Family states chronic. No other sensory or motor deficits noted. SKIN: No rash or jaundice noted. 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 Beliefs That Will Affect Care: None marital status: / Current Living Situation: Family Current Living Situation Comment: son current occupational status: retired Feels Safe at Home: Yes Assistive Devices: Wheelchair Allergies Allergies Allergy/AdvReac Type Severity Reaction Status Date / Time amoxicillin Allergy ITCHING Unverified 05/05/22 22:12 mirtazapine AdvReac Intermediate Increased Verified 05/05/22 22:12 Anxiety morphine AdvReac Intermediate NAUSEA Verified 05/05/22 22:12 oxycodone AdvReac Intermediate GI SYMPTOMS Verified 05/05/22 22:12 Home Meds Home Medications Medication Instructions Recorded Confirmed allopurinol 300 mg tablet 300 mg PO HS 03/14/19 05/05/22 folic acid 1 mg tablet 1 mg PO QAM 03/14/19 05/05/22 lisinopril 5 mg tablet 5 mg PO QAM 03/14/19 05/05/22 metoprolol succinate 50 mg 50 mg PO QAM 03/14/19 05/05/22 tablet,extended release 24 hr omeprazole 40 mg capsule,delayed 40 mg PO BID 03/14/19 05/05/22 release acetaminophen 500 mg tablet 500 - 1,000 mg PO DIRECTED PRN 12/29/21 05/05/22 (Tylenol Extra Strength) PAIN/FEVER furosemide 20 mg tablet 10 mg PO DAILY PRN Edema 12/29/21 05/05/22 levothyroxine 75 mcg tablet 75 mcg PO QAM 12/29/21 05/05/22 xdeegtle-cal-szqjw ac 400 1 tab PO DAILY 03/14/22 05/05/22 mcg-calcium carb 500 mg-vit K1 20 mcg tablet (Women's 50 Plus Multivitamin) phenylephrine 5 1 cap PO DIRECTED PRN 03/14/22 05/05/22 mg-dextromethorphan 10 COLD/CONGESTION SYMPTOMS mg-acetaminophen 325 mg capsule (Sheila[place] Plus Sinus-Cough) phenylephrine 5 1 cap PO DIRECTED PRN 03/14/22 05/05/22 mg-dextromethorphan 10 COLD/CONGESTION SYMPTOMS mg-acetaminophen 325 mg capsule (Vicks DayQuil Cold and Flu Relief) escitalopram oxalate 10 mg tablet 10 mg PO QPM 04/28/22 05/05/22 loratadine 10 mg tablet 10 mg PO DAILY PRN Allergy Symptoms 04/28/22 05/05/22 melatonin 10 mg tablet 10 mg PO HS PRN Insomnia 04/28/22 05/05/22 Results & Data (ED) Vital Signs Vital Signs - 24 hr 05/05/22 21:46 05/05/22 22:27 05/05/22 23:04 Temperature 37 C Temperature Source Oral Pulse Rate 93 H Pulse Rate [Finger] 79 Pulse Rhythm Regular Pulse Rhythm [Finger] Regular Pulse Strength Normal Pulse Strength [Finger] Normal Respiratory Rate 17 20 Respiratory Effort / Characteristics Non-Labored Spontaneous Respiratory Depth Normal Normal Respiratory Pattern Regular Blood Pressure 109/74 Blood Pressure [Right Arm] 119/51 L Blood Pressure Mean 85 Blood Pressure Mean [Right Arm] 73 Blood Pressure Position Sitting Blood Pressure Position [Right Arm] Lying Pulse Oximetry 97 99 97 Oxygen Delivery Method Room Air Oxygen Flow Rate Sepsis Recent Fever Within 48 Hours No Sepsis New/Unexplained Change in Mental Status No Sepsis Action Taken by Nursing No Action Required 05/05/22 23:30 05/05/22 23:48 05/06/22 00:22 Temperature Temperature Source Pulse Rate Pulse Rate [Finger] 93 H 68 67 Pulse Rhythm Pulse Rhythm [Finger] Regular Regular Regular Pulse Strength Pulse Strength [Finger] Normal Normal Normal Respiratory Rate 18 22 14 Respiratory Effort / Characteristics Non-Labored Spontaneous Non-Labored Spontaneous Non-Labored Spontaneous Respiratory Depth Normal Normal Normal Respiratory Pattern Regular Regular Blood Pressure Blood Pressure [Right Arm] 80/47 L 102/52 L 102/47 L Blood Pressure Mean Blood Pressure Mean [Right Arm] 58 68 65 Blood Pressure Position Blood Pressure Position [Right Arm] Sitting Sitting Pulse Oximetry 97 96 97 Oxygen Delivery Method Nasal Cannula Room Air Room Air Oxygen Flow Rate 2 Sepsis Recent Fever Within 48 Hours Sepsis New/Unexplained Change in Mental Status Sepsis Action Taken by Nursing 05/06/22 00:58 05/06/22 01:44 Temperature Temperature Source Pulse Rate Pulse Rate [Finger] 64 60 Pulse Rhythm Pulse Rhythm [Finger] Regular Regular Pulse Strength Pulse Strength [Finger] Normal Normal Respiratory Rate 16 16 Respiratory Effort / Characteristics Non-Labored Non-Labored Spontaneous Respiratory Depth Normal Normal Respiratory Pattern Regular Blood Pressure Blood Pressure [Right Arm] 87/41 L 117/52 L Blood Pressure Mean Blood Pressure Mean [Right Arm] 56 73 Blood Pressure Position Blood Pressure Position [Right Arm] Sitting Pulse Oximetry 98 100 Oxygen Delivery Method Room Air Nasal Cannula Oxygen Flow Rate 2 Sepsis Recent Fever Within 48 Hours Sepsis New/Unexplained Change in Mental Status Sepsis Action Taken by Nursing Laboratory Data Result diagrams: 05/05/22 22:00 05/05/22 22:00 Lab Results 05/05/22 05/05/22 05/05/22 Range/Units 22:00 22:00 22:05 WBC 13.91 H (4.8-10.8) K/ul RBC 3.80 L (3.93-5.22) M/uL Hgb 12.0 (12.0-16.0) g/dl Hct 36.9 (34.1-44.9) % MCV 97.1 (80.0-100.0) fL MCH 31.6 (25.0-34.0) pg MCHC 32.5 (32.0-36.0) g/dL RDW Std Deviation 55.8 H (36.4-46.3) fL RDW Coeff of Mis 15.5 H (11.5-14.5) % Plt Count 357 (130-400) K/uL MPV 10.8 (9.4-12.3) fL Immature Gran % (Auto) 0.4 % Neut % (Auto) 70.3 % Lymph % (Auto) 18.5 % Gosper % (Auto) 7.3 % Eos % (Auto) 2.7 % Baso % (Auto) 0.8 % Neut # (Auto) 9.77 H (1.4-6.5) K/uL Lymph # (Auto) 2.58 (1.2-3.4) K/uL Gosper # (Auto) 1.02 H (0.24-0.82) K/uL Eos # (Auto) 0.38 (0-0.50) K/uL Baso # (Auto) 0.11 (0-0.2) K/uL Immature Gran # (Auto) 0.05 H (0.00-0.02) K/uL Sodium 139 (136-145) mmol/L Potassium 4.6 (3.5-5.1) mmol/L Chloride 107 (98-107) mmol/L Carbon Dioxide 18 L (21-32) mmol/L Anion Gap 14 H (3-11) BUN 55 H (6-23) mg/dl Creatinine 3.74 H (0.6-1.2) mg/dl Est Cr Clr Drug Dosing Not Reportable Est GFR ( Amer) 11.7 ml/min Est GFR (Non-Af Amer) 10.1 ml/min BUN/Creatinine Ratio 14.7 (10-20) Glucose 186 H (70-99(Fasting)) mg/dl POC Glucose 182 H (70-99) mg/dl Calcium 9.8 (8.5-10.1) mg/dl Total Bilirubin 0.3 (0.2-1.0) mg/dl AST 21 (13-39) U/L ALT 15 (7-52) U/L Alkaline Phosphatase 90 (34-104) U/L Troponin I High Sens 17.0 H D (0-14) pg/ml Total Protein 7.4 (6.0-8.3) gm/dl Albumin 4.3 (3.4-5.0) gm/dl Globulin 3.1 (2.5-4.0) gm/dl Albumin/Globulin Ratio 1.4 (0.9-2) Lipase 65 (11-82) U/L Urine Color Urine Appearance (Clear) Urine pH (4.5-7.5) Ur Specific Arco (1.000-1.030) Urine Protein (Negative) Urine Glucose (UA) (Negative) Urine Ketones (Negative) Urine Blood (Negative) Urine Nitrite (Negative) Urine Bilirubin (Negative) Urine Urobilinogen (Negative) Ur Leukocyte Esterase (Negative) Urine WBC (Auto) (0-5) /hpf Urine RBC (Auto) (0-4) /hpf U Hyaline Cast (Auto) (0-5) /lpf U Epithel Cells (Auto) (0-5) /lpf Urine Bacteria (Auto) (Negative) Ur Renal Epithelial Cell SARS-CoV-2, RNA, NAAT (NEGATIVE) 05/05/22 05/05/22 Range/Units 22:30 Unknown WBC (4.8-10.8) K/ul RBC (3.93-5.22) M/uL Hgb (12.0-16.0) g/dl Hct (34.1-44.9) % MCV (80.0-100.0) fL MCH (25.0-34.0) pg MCHC (32.0-36.0) g/dL RDW Std Deviation (36.4-46.3) fL RDW Coeff of Mis (11.5-14.5) % Plt Count (130-400) K/uL MPV (9.4-12.3) fL Immature Gran % (Auto) % Neut % (Auto) % Lymph % (Auto) % Gosper % (Auto) % Eos % (Auto) % Baso % (Auto) % Neut # (Auto) (1.4-6.5) K/uL Lymph # (Auto) (1.2-3.4) K/uL Gosper # (Auto) (0.24-0.82) K/uL Eos # (Auto) (0-0.50) K/uL Baso # (Auto) (0-0.2) K/uL Immature Gran # (Auto) (0.00-0.02) K/uL Sodium (136-145) mmol/L Potassium (3.5-5.1) mmol/L Chloride (98-107) mmol/L Carbon Dioxide (21-32) mmol/L Anion Gap (3-11) BUN (6-23) mg/dl Creatinine (0.6-1.2) mg/dl Est Cr Clr Drug Dosing Est GFR ( Amer) ml/min Est GFR (Non-Af Amer) ml/min BUN/Creatinine Ratio (10-20) Glucose (70-99(Fasting)) mg/dl POC Glucose (70-99) mg/dl Calcium (8.5-10.1) mg/dl Total Bilirubin (0.2-1.0) mg/dl AST (13-39) U/L ALT (7-52) U/L Alkaline Phosphatase (34-104) U/L Troponin I High Sens (0-14) pg/ml Total Protein (6.0-8.3) gm/dl Albumin (3.4-5.0) gm/dl Globulin (2.5-4.0) gm/dl Albumin/Globulin Ratio (0.9-2) Lipase (11-82) U/L Urine Color Dark Yellow Urine Appearance Clear (Clear) Urine pH 5.0 (4.5-7.5) Ur Specific [place]co 1.017 (1.000-1.030) Urine Protein 2+ H (Negative) Urine Glucose (UA) Negative (Negative) Urine Ketones Trace H (Negative) Urine Blood Negative (Negative) Urine Nitrite Negative (Negative) Urine Bilirubin Negative (Negative) Urine Urobilinogen Negative (Negative) Ur Leukocyte Esterase 1+ H (Negative) Urine WBC (Auto) 10-30 H (0-5) /hpf Urine RBC (Auto) 0-4 (0-4) /hpf U Hyaline Cast (Auto) >30 H (0-5) /lpf U Epithel Cells (Auto) >30 H (0-5) /lpf Urine Bacteria (Auto) Negative (Negative) Ur Renal Epithelial Cell Not Reportable SARS-CoV-2, RNA, NAAT NEGATIVE (NEGATIVE) Administered Medications Sodium Chloride (Nss 1000ml) 1,000 mls @ 125 mls/hr IV .Q8H STA Stop: 05/06/22 06:02 Last Admin: 05/05/22 23:54 Dose: 125 mls/hr Documented By: GERARD Vancomycin HCl 1,500 mg/ (Sodium Chloride) 530 mls @ 200 mls/hr IV NOW ONE Stop: 05/06/22 02:10 Last Admin: 05/05/22 23:53 Dose: 200 mls/hr Documented By: GERARD Lorazepam (Lorazepam 2 Mg/1 Ml Vial) 0.5 mg IV Q10M PRN; Protocol PRN Reason: Agitation Stop: 06/04/22 22:44 Last Admin: 05/05/22 23:15 Dose: 0.5 mg Documented By: Admin: 05/05/22 22:58 Dose: 0.5 mg Documented By: Admin: 05/05/22 22:48 Dose: 0.5 mg Documented By: GERARD Discontinued Medications Haloperidol Lactate (Haloperidol Lactate 5 Mg/Ml 1 Ml Vial) 1 mg IV NOW STA Stop: 05/05/22 22:59 Last Admin: 05/05/22 23:18 Dose: 1 mg Documented By: GERARD Sodium Chloride (Nss 1000ml) 500 mls @ 999 mls/hr IV .Q31M ONE Stop: 05/05/22 23:14 Last Infusion: 05/05/22 23:52 Dose: 0 mls/hr Documented By: Admin: 05/05/22 23:27 Dose: 999 mls/hr Documented By: GERARD Cefepime HCl (Maxipime) 2,000 mg in 20 mls @ 5 mls/min IV NOW STA; Protocol Stop: 05/05/22 23:35 Last Admin: 05/05/22 23:37 Dose: 5 mls/min Documented By: GERARD Sodium Chloride (Nss 1000ml) 500 mls @ 999 mls/hr IV .Q31M ONE Stop: 05/06/22 01:31 Last Admin: 05/06/22 01:03 Dose: 999 mls/hr Documented By: GERARD Lorazepam (Lorazepam 2 Mg/1 Ml Vial) Confirm Administered Dose 1 mg .ROUTE .STK- MED ONE Stop: 05/05/22 22:45 Last Admin: 05/05/22 22:48 Dose: Not Given Documented By: GERARD Discharge Plan Visit Data Chief Complaint: Urinary Symptoms ED Provider: Price Romero Discharge Problem: AMS (altered mental status), Leukocytosis, TENNILLE (acute kidney injury) Forms Stand Alone Forms: [facility] Prescriptions Prescriptions: No Action metoprolol succinate 50 mg tablet extended release 24 hr 50 mg PO QAM omeprazole 40 mg capsule,delayed release(DR/EC) 40 mg PO BID folic acid 1 mg tablet 1 mg PO QAM allopurinol 300 mg tablet 300 mg PO HS lisinopril 5 mg tablet 5 mg PO QAM acetaminophen [Tylenol Extra Strength] 500 mg Tablet 500 - 1,000 mg PO DIRECTED PRN (Reason: PAIN/FEVER) levothyroxine 75 mcg tablet 75 mcg PO QAM furosemide 20 mg tablet 10 mg PO DAILY PRN (Reason: Edema) Vicks DayQuil Cold-Flu Relief 5-10-325 mg Capsule 1 cap PO DIRECTED PRN (Reason: COLD/CONGESTION SYMPTOMS) Sheila-[place] Plus Sinus-Cough 5-10-325 mg Capsule 1 cap PO DIRECTED PRN (Reason: COLD/CONGESTION SYMPTOMS) Women's 50 Plus Multivitamin 400 mcg-500 mg calcium-20 mcg Tablet 1 tab PO DAILY loratadine 10 mg Tablet 10 mg PO DAILY PRN (Reason: Allergy Symptoms) escitalopram oxalate 10 mg tablet 10 mg PO QPM melatonin 10 mg Tablet 10 mg PO HS PRN (Reason: Insomnia) Referrals Referrals: Jeff Good DO [Primary Care Provider] -
[2022-05-05] MEDS ORDERED: HALOPERIDOL LACTATE 5 MG/ML 1 ML VIAL IV STA (22:58)
[2022-05-05 23:03] LABS: Cast Urine Automated >30 /lpf (0-5)
[2022-05-05] MEDS ORDERED: CEFEPIME 2,000 MG/20 ML VIAL IV STA (23:32)
[2022-05-05] MEDS ORDERED: VANCOMYCIN CONSULT ACTIVE PRN (23:32)
[2022-05-05] MEDS ORDERED: VANCOMYCIN HCL 1,500 MG in SODIUM CHLORIDE 0.9% 500 ML IV ONE (23:32)
[2022-05-06] MEDS ORDERED: SODIUM CHLORIDE 0.9% 1000ML 500 ML IV ONE (01:01)
[2022-05-06] MEDS ORDERED: LORATADINE 10 MG TAB PO PRN (04:25)
[2022-05-06] MEDS ORDERED: POLYETHYLENE (MIRALAX) 17 GM PACK PO PRN (04:25)
[2022-05-06] MEDS ORDERED: NITROGLYCERIN SL 0.4 MG/TAB TAB SL PRN (04:25)
[2022-05-06] MEDS ORDERED: MELATONIN 3 MG TAB PO PRN (04:37)
[2022-05-06] MEDS: SODIUM CHLORIDE 0.9% 1000ML 1,000 ML IV SCH ×2 (04:43→21:44)
[2022-05-06] MEDS: LEVOTHYROXINE SODIUM 75 MCG TABLET PO SCH (06:13)
[2022-05-06 07:09] LABS: Basophils # (auto) 0.08 K/uL (0-0.2); Basophils % (auto) 0.9 %; Eosinophils # (auto) 0.37 K/uL (0-0.50); Eosinophils % (auto) 4.3 %; Hematocrit (blood only) 31.3 % (34.1-44.9); Immature Granulocytes # (auto) 0.04 K/uL (0.00-0.02); Immature Granulocytes % (auto) 0.5 %; Lymphocytes # (auto) 2.09 K/uL (1.2-3.4); Lymphocytes % (auto) 24.2 %; Mean Corpuscular Hemoglobin 31.5 pg (25.0-34.0); Mean Corpuscular Hgb Conc 31.9 g/dL (32.0-36.0); Mean Corpuscular Volume 98.7 fL (80.0-100.0); Mean Platelet Volume 10.1 fL (9.4-12.3); Monocytes # (auto) 0.65 K/uL (0.24-0.82); Monocytes % (auto) 7.5 %; Neutrophils # (auto) 5.42 K/uL (1.4-6.5); Neutrophils % (auto) 62.6 %; Platelet Count 294 K/uL (130-400); RDW Coefficient of Variation 15.5 % (11.5-14.5); Red Blood Count 3.17 M/uL (3.93-5.22); White Blood Count 8.65 K/ul (4.8-10.8)
[2022-05-06 07:31] LABS: BUN Creatinine Ratio 17.5 (10-20); Calcium 8.6 mg/dl (8.5-10.1); Creatinine Clr Calc Pharmacy 12.3 ml/min; Est GFR (African American) 16.2 ml/min; Magnesium 1.8 mg/dl (1.7-2.4); Potassium 4.1 mmol/L (3.5-5.1)
[2022-05-06] MEDS: METOPROLOL SUCC 50MG EXT REL TAB PO SCH (08:04)
--- NOTE | 2022-05-06 08:14 | History and Physical Report ---
DATE OF ADMISSION: 05/06/2022. CHIEF COMPLAINT: TENNILLE and confusion. HISTORY OF PRESENT ILLNESS: This is an 89-year-old female with past medical history significant for type 2 diabetes, currently not on any medications, history of benign neoplasm of adrenal gland, hyperlipidemia, hypothyroidism, hypertension, paroxysmal atrial tachycardia, GERD, chronic kidney disease stage III, history of acoustic neuroma, history of mild dementia with Alzheimer disease, history of bladder cancer, depression, generalized anxiety disorder, was recently in the hospital for Enterococcus, resistant to penicillin and was treated with daptomycin. She did okay and got discharged on 05/04/2022 to home. She was brought in because of confusion at home and agitated at home. In the ER, had to give her Ativan IV and also 1 mg of Haldol, and currently she is drowsy. She is started on cefepime and vancomycin. I could not get any history from the patient currently. Son , who seems to be her office support clerk, got admitted today. ALLERGIES: AMOXICILLIN, MIRTAZAPINE, MORPHINE, AND OXYCODONE. PAST MEDICAL HISTORY: As mentioned above. PAST SURGICAL HISTORY: Cystoscopy, ERCP, hemorrhoidectomy, adenoidectomy, tonsillectomy, cervical spine surgery, hysterectomy, right carpal tunnel release, right cataract surgery, sigmoidoscopy. FAMILY HISTORY: Significant for father had lung cancer, sister had skin cancer, daughter has thyroid disorder. SOCIAL HISTORY: . No smoking. No alcohol use. REVIEW OF SYSTEMS: Could not get complete review of systems as the patient is currently confused and sedated. MEDICATIONS: The patient is on Tylenol Extra Strength 500-1000 mg p.o. p.r.n., allopurinol 300 mg p.o. at bedtime, Lexapro 10 mg p.o. a.m., folic acid 1 mg p.o. a.m., Lasix 10 mg p.o. daily p.r.n., levothyroxine 75 mcg p.o. a.m., lisinopril 5 mg p.o. daily a.m., loratadine 10 mg daily p.r.n., melatonin 10 mg p.o. at bedtime p.r.n., metoprolol succinate 50 mg p.o. a.m., omeprazole 40 mg p.o. b.i.d., Women's Multivitamin 1 tablet p.o. daily. PHYSICAL EXAMINATION: GENERAL: The patient is currently drowsy, responds to painful stimuli. VITAL SIGNS: Temperature 37, pulse 63, respiratory rate 16, blood pressure 121/57, oxygen 100% on 2 liters. HEENT: Pupils somewhat sluggish to react. Head is atraumatic. No facial droop seen. NECK: No JVD. No neck masses. CARDIOVASCULAR: S1 and S2 heard. Regular rate and rhythm. No murmur, no gallop. RESPIRATORY SYSTEM: Normal AP diameter. No accessory muscle use. No wheezing, no crackles. ABDOMEN: Soft, bowel sounds present, no distention. CENTRAL NERVOUS SYSTEM: Drowsy, arousable on waking up and responds to painful stimuli. EXTREMITIES: No edema, no erythema. LABORATORY DATA: WBC 13.9, hemoglobin 12, hematocrit 36.9, platelets 357. Sodium 139, potassium 4.6, chloride 107, bicarbonate 18, BUN 55, creatinine 3.7, serum glucose 186, calcium 9.8, total bilirubin 0.3, AST 71, ALT 59, alkaline phosphatase 98. Troponin I high sensitivity 17, lipase 65. Urinalysis, +2 protein, +1 leukocyte esterase. SARS-CoV-2 rapid test negative. IMAGING: CT of the head, preliminary report: unremarkable. EKG: Sinus rhythm with first-degree AV block at a rate of 90. No significant change was found. ASSESSMENT AND PLAN: This is an 89-year-old female who was recently in the hospital for urinary tract infection with Enterococcus, resistant to penicillin, treated with daptomycin. Comes back with agitation and found to have acute kidney injury. 1. Agitation: The patient has a history of mild Alzheimer dementia, possible delirium. Received Ativan and Haldol in the Emergency Room, currently sleeping. We will monitor.Zyprexa prn for agitation. 2. Urinary tract infection: Recently had Enterococcus urinary tract infection. Could be contributing to her current agitation. Placed on vancomycin and cefepime. We will continue, to dose them as per the renal function. 3. Acute kidney injury on chronic kidney disease stage III: Baseline creatinine seems to be around 1.3, discharged with creatinine of 1.3, now creatinine is 3.7. Getting gentle fluids. We will also get a CT of abdomen and pelvis. Will consult nephrology. Avoid nephrotoxic agents. Holding lisinopril. 4. Diabetes: Not on medications. We will monitor the blood sugars. Diabetic diet. Currently, placed her on clear liquid diet until mental status improves. 5. Hypertension: On metoprolol succinate. Holding lisinopril. We will monitor. 6. History of gout: Adjust the allopurinol dose for kidney function. 6. Gastroesophageal reflux disease: Continue omeprazole. 7. History of hypothyroidism: Continue Synthroid. 8. History of depression and anxiety: On Lexapro. 9. History of paroxysmal atrial tachycardia: On Toprol-XL. 10. Deep venous thrombosis prophylaxis: Place her on heparin subcutaneously. DISPOSITION: Closely monitor in the [employer]. PT/OT prior to discharge. Social service to help with discharge planning. Son who is the patient's office support clerk also has health issues. The patient will need more help at home or need placement. Job ID: [id number] [email or web address]
--- NOTE | 2022-05-06 08:18 | CT Scan Report ---
HEAD CT NONCONTRAST CT DOSE: 1074.96 mGy.cm HISTORY: AMS TECHNIQUE: Multiaxial CT images of the head were performed without the use of intravenous contrast. A utomated exposure control was utilized for this study. A dose lowering technique was utilized adheri ng to the principles of ALARA. Comparison: Head CT 05/04/2022. Findings: The paranasal sinuses and mastoid air cells are clear. The calvarium and skull base are int act. There is no mass, hematoma, midline shift, acute infarct. White matter hypodensity is nonspecifi c but suggestive of microvascular ischemic change. The ventricles and sulci demonstrate mild age-rela christiano involutional changes. Impression: No acute intracranial abnormality. ACT 112: Negative or not required by law. Electronically signed by: Alan Hernandez M.D. 05/06/2022 8:17 AM
--- NOTE | 2022-05-06 08:51 | CT Scan Report ---
CT OF THE ABDOMEN AND PELVIS WITHOUT CONTRAST CLINICAL HISTORY: Acute kidney injury. Urinary tract infection. COMPARISON STUDY: CT of the abdomen and pelvis December 29, 2021. TECHNIQUE: Axial images of the abdomen and pelvis were obtained without IV contrast. Images were revi ewed in the axial, sagittal, and coronal planes. Automated exposure control was utilized for the tiffani dy. A dose lowering technique was utilized adhering to the principles of ALARA. FINDINGS: No pneumatosis, free air or portal venous gas is present. Multiple bilateral renal calculi are noted. The largest is an 8 mm left lower pole calculus. No ureteral calculi are present. There is no hydronephrosis. Water attenuation lesion within the lower pole of the right kidney was shown to r eflect a cyst on prior contrast enhanced CT. There is moderate renal cortical thinning. Mild symmetri c bilateral perinephric stranding is noted. Evaluation of the remainder of the abdomen and pelvis is suboptimal on this unenhanced exam. Liver, spleen, right adrenal gland and pancreas are unremarkable. 1.6 cm low-attenuation left adrenal nodule is unchanged. This favors an adenoma. No evidence for a b owel obstruction. Appendix is not visualized. No lymphadenopathy is present. Extensive aortoiliac ath erosclerotic plaque is noted. No acute fracture within visualized skeletal structures. There is no ab dominal or pelvic lymphadenopathy. No fluid collection is identified to suggest an abscess. There is mild bladder wall thickening. IMPRESSION: 1. Bilateral nephrolithiasis. No ureteral calculi or hydronephrosis. Mild bladder wall thickening whi ch could be correlated with urinalysis. 2. No bowel obstruction. No bowel wall thickening identified on unenhanced exam. ACT 112: Negative or not required by law. Electronically signed by: Andrés Caraballo M.D. 05/06/2022 8:50 AM
[2022-05-06] MEDS ORDERED: FOLIC ACID 400 MCG TAB PO ONE (09:00)
[2022-05-06] MEDS: allopurinoL 100 MG TAB PO SCH (09:11)
[2022-05-06] MEDS: HEPARIN SOD 5,000 UNIT/0.5 ML VIAL SQ SCH ×2 (09:12→20:43)
[2022-05-06] MEDS: PANTOprazole 40 MG TAB PO SCH ×2 (09:12→20:43)
--- NOTE | 2022-05-06 09:47 | Nephrology Consultation ---
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 On next recheck summer 2019,e GFR running at 22- 25 mL/min. Last seen by Dr Dasilva on 08/11/2020 ( Scr-1.9, eGFR- 23.3).;On last Labs on [facility] her SCr was 1.2 with eGFR of 39.0( 07/24/21).Her baseline scr was 1.3 when she had presented with UTI ( peak 1.8) earlier this month Acute on chronic Kidney failure- Likley 2/combination UTI and prerenal Etiology. - Agree with gentle fluid rehydration and broad spectrum abx unless culture avaliable. - Non contrast CT Abdomen/ pelvis shows non obstructive nephrolithiasis with no hydronephrosis with bladder wall thickening- CAN be followed as outpatient ( urology and nephrology). - Keep vancomycin level 15-20 - NG Metabolic acidois / renal failure - no need for bicarbonate drip, Will start on sodium bicatbonate tabs when more alert, - Daily input and output - BMP - Continue to hold Lisinopril. -Due to advancing dementia and anxiety, she is likely a very poor dialysis candidate should the need arise. (2) Hypertension: presently hypotensive - hold lisinopril and continue with fluids (3) AMS (altered mental status): Has baseline Dementia,worse 2/ infection. History of Present Illness Reason for Consultation: Acute on chronic kidney injury ( CKD-3b,baseline Scr 1.3 ), non protenuric Attending Physician: Winston Cervantes MD History of Present Illness 89 yr old, admitted with confusion at home and agitation. Marco has dementia and unable to give history,As per H&P , Son who is the main caregiver , got admitted yesterday, In the ER, she had to give her Ativan and Haldol to calm her down. She was started on cefepime and vancomycin.She was recently in the hospital for Enterococcus, UTI (resistant to penicillin) and was treated with daptomycin and was discharged on 05/04/2022 to home( TENNILLE, Pscr- 1.8). ER labs were significant for leucocytosis,(WBC 13.9), BUN/Scr-55/3.7, U/A was LE +. PMH includes dementia, major depression, GERD, HTN easily controlled on 2 meds and w/o hx of urgency, gout, diet controlled DM, benign neoplasm of adrenal gland, HLD, PAF,GERD,h/o acoustic neuroma, bladder cancer ( originally diagnosed in 1983 originally in [place] ([place] ??) and treated with mitomycin vs BCG. She was then followed for surveillance by Dr. Ralph and Dain- no further resection was needed. Last seen by Dr Solano (06/24/2008) Urology).Last cystoscopy was performed in [place] on 05/01/2007).On that visit she had stress and urge incontinence , which was manageable, plan was to f/u in 2 years for cystoscopy and bladder washing. Allergies Allergy/AdvReac Type Severity Reaction Status Date / Time amoxicillin Allergy ITCHING Unverified 05/05/22 22:12 mirtazapine AdvReac Intermediate Increased Verified 05/05/22 22:12 Anxiety morphine AdvReac Intermediate NAUSEA Verified 05/05/22 22:12 oxycodone AdvReac Intermediate GI SYMPTOMS Verified 05/05/22 22:12 Home Medications Medication Instructions Recorded Confirmed Type allopurinol 300 mg tablet 300 mg PO HS 03/14/19 05/05/22 History folic acid 1 mg tablet 1 mg PO QAM 03/14/19 05/05/22 History lisinopril 5 mg tablet 5 mg PO QAM 03/14/19 05/05/22 History metoprolol succinate 50 mg 50 mg PO QAM 03/14/19 05/05/22 History tablet,extended release 24 hr omeprazole 40 mg capsule,delayed 40 mg PO BID 03/14/19 05/05/22 History release acetaminophen 500 mg tablet 500 - 1,000 mg PO DIRECTED PRN 12/29/21 05/05/22 History (Tylenol Extra Strength) PAIN/FEVER furosemide 20 mg tablet 10 mg PO DAILY PRN Edema 12/29/21 05/05/22 History levothyroxine 75 mcg tablet 75 mcg PO QAM 12/29/21 05/05/22 History dtsxqbhy-tfi-vpogv ac 400 1 tab PO DAILY 03/14/22 05/05/22 History mcg-calcium carb 500 mg-vit K1 20 mcg tablet (Women's 50 Plus Multivitamin) phenylephrine 5 1 cap PO DIRECTED PRN 03/14/22 05/05/22 History mg-dextromethorphan 10 COLD/CONGESTION SYMPTOMS mg-acetaminophen 325 mg capsule (Sheila-Proctor Plus Sinus-Cough) phenylephrine 5 1 cap PO DIRECTED PRN 03/14/22 05/05/22 History mg-dextromethorphan 10 COLD/CONGESTION SYMPTOMS mg-acetaminophen 325 mg capsule (Vicks DayQuil Cold and Flu Relief) escitalopram oxalate 10 mg tablet 10 mg PO QPM 04/28/22 05/05/22 History loratadine 10 mg tablet 10 mg PO DAILY PRN Allergy Symptoms 04/28/22 05/05/22 History melatonin 10 mg tablet 10 mg PO HS PRN Insomnia 04/28/22 05/05/22 History Patient History Medical History 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 CKD (chronic kidney disease) stage 3, GFR 30-59 ml/min Dementia Diverticulitis Hypertension Hypothyroidism Family History Other Family history non-contributory Social History Smoking Status: Unknown if ever smoked Tobacco Type: Cigarettes Second Hand Exposure: No; Hx Alcohol Use: No Hx Substance Use: No Preferred Language: Burmese Communication Ability: Impaired Hearing Ability: Hard of Hearing Joist Setter Required: No Beliefs That Will Affect Care: None marital status: / Current Living Situation: Family Current Living Situation Comment: son current occupational status: retired Other Information That Helps Us Care for You: No Feels Safe at Home: Yes Safety Concerns: Feels Safe At This Time Assistive Devices: Wheelchair Review of Systems Review of Systems: Confused, but comfortable. No SOB. No Pedal edema looks ill. Physical Exam Physical Exam: GENERAL: The patient is currently confused, not possible to take a history. HEENT: Pupils somewhat sluggish to react. Head is atraumatic. No facial droop seen. NECK: No JVD. No neck masses. CARDIOVASCULAR: S1 and S2 heard. Regular rate and rhythm. No murmur, no gallop. RESPIRATORY SYSTEM: Normal AP diameter. No accessory muscle use. No wheezing, no crackles. ABDOMEN: Soft, bowel sounds present, no distention. CENTRAL NERVOUS SYSTEM: Drowsy, arousable on waking up and responds to painful stimuli. EXTREMITIES: No edema, no erythema Results & Data ([facility]) Vital Signs (Past 12 Hours) Vital Signs Temp Pulse Pulse Resp BP BP Pulse Ox 05/06/22 08:00 92 H 14 95/57 L 95 05/06/22 04:33 36.6 C 65 18 128/57 L 99 05/06/22 04:33 05/06/22 03:35 62 16 113/49 L 98 05/06/22 02:02 63 16 121/57 L 100 05/06/22 01:44 60 16 117/52 L 100 05/06/22 00:58 64 16 87/41 L 98 05/06/22 00:22 67 14 102/47 L 97 05/05/22 23:48 68 22 102/52 L 96 05/05/22 23:30 93 H 18 80/47 L 97 05/05/22 23:04 79 20 119/51 L 97 05/05/22 22:27 99 05/05/22 21:46 37 C 93 H 17 109/74 97 Pulse Ox O2 Del Method O2 Del Method O2 Flow Rate O2 Flow Rate 05/06/22 08:00 05/06/22 04:33 Nasal Cannula 2 05/06/22 04:33 98 Nasal Cannula 2 05/06/22 03:35 Room Air 05/06/22 02:02 Nasal Cannula 2 05/06/22 01:44 Nasal Cannula 2 05/06/22 00:58 Room Air 05/06/22 00:22 Room Air 05/05/22 23:48 Room Air 05/05/22 23:30 Nasal Cannula 2 05/05/22 23:04 05/05/22 22:27 05/05/22 21:46 Room Air Laboratory Results 05/06/22 06:59 05/06/22 06:59
--- NOTE | 2022-05-06 10:45 | Pharmacy Report ---
Pharmacy PK ABX Note - Date of Service May 06, 2022 - Assessment and Plan Assessment * 89 year old F receiving cefepime and vancomycin for treatment of UTI * Recent hospitalization and discharge on 05/04 for E. faecium UTI for which the patient was on effective dapto therapy x8 days from 04/28-05/05. Re-admitted 05/05 PM for confusion, agitation, and TENNILLE * PMH: T2DM, CKD III, Alzheimers, bladder CA * Pertinent microbiologic data includes: Urine culture 04/25 w E. faecium (sensitive to vanco and dapto) Vancomycin * Target AUC/SHERYL of 400-600 mg/L.hr * TENNILLE noted - will dose via level * Random level today of 16.4 mcg/mL - will give small supplemental dose Plan * Additional vancomycin 750 mg IV x1 * Random level with AM labs tomorrow Pharmacy will continue to follow and will adjust dose/frequency as necessary. Thank you. Pharmacy has transitioned to AUC monitoring for vancomycin. AUC/SHERYL is the preferred PK/PD target and is associated with decreased risk of nephrotoxicity compared to traditional trough targets.
--- NOTE | 2022-05-06 11:46 | Electrocardiogram Report ---
Test Reason : Blood Pressure : / mmHG Vent. Rate : 111 BPM Atrial Rate : 111 BPM P-R Int : 272 ms QRS Dur : 080 ms QT Int : 340 ms P-R-T Axes : 000 011 055 degrees QTc Int : 462 ms Sinus tachycardia with 1st degree A-V block Otherwise normal ECG When compared with ECG of 28-APR-2022 21:56, Vent. rate has increased BY 50 BPM Confirmed by Neville Aldana ([id number]) on 05/06/2022 11:46:29 AM Referred By: REFERRED SELF Confirmed By:Neville Aldana
--- NOTE | 2022-05-06 11:54 | Electrocardiogram Report ---
Test Reason : Blood Pressure : / mmHG Vent. Rate : 090 BPM Atrial Rate : 090 BPM P-R Int : 262 ms QRS Dur : 078 ms QT Int : 378 ms P-R-T Axes : 040 -02 041 degrees QTc Int : 462 ms Sinus rhythm with 1st degree A-V block When compared with ECG of 05-MAY-2022 22:02, (unconfirmed) No significant change was found Confirmed by Neville Aldana ([id number]) on 05/06/2022 11:54:17 AM Referred By: REFERRED SELF Confirmed By:Neville Aldana
[2022-05-06] MEDS ORDERED: VANCOMYCIN HCL 750 MG in SODIUM CHLORIDE 0.9% 250 ML IV ONE (14:45)
--- NOTE | 2022-05-06 15:50 | Hospitalist Progress Note ---
Date of Service May 06, 2022 Assessment & Plan (1) AMS (altered mental status): (2) Acute on chronic renal failure: (3) CKD (chronic kidney disease) stage 3, GFR 30-59 ml/min: Plan: 89-year-old female who was recently in the hospital for urinary tract infection with Enterococcus, resistant to penicillin, treated with daptomycin. Comes back with agitation and found to have acute kidney injury. 1. Agitation: The patient has a history of Alzheimer dementia, possible delirium. Received Ativan and Haldol in the Emergency Room, currently again agitated. We will monitor.Zyprexa prn for agitation. !:! sitter 2. Urinary tract infection: Recently had Enterococcus urinary tract infection. Could be contributing to her current agitation. Staerted on vancomycin and cefepime on admission. We will continue for now, to r/o infection, dose them as per the renal function. 3. Acute kidney injury on chronic kidney disease stage III: Baseline creatinine seems to be around 1.3, discharged with creatinine of 1.3, now creatinine on admission is 3.7. gentle fluids Cr improved CT of abdomen and pelvis obtained Nephrology consulted. Avoid nephrotoxic agents. Holding lisinopril. 4. Diabetes: Not on medications. We will monitor the blood sugars. Diabetic diet. Currently, placed her on clear liquid diet until mental status improves. 5. Hypertension: On metoprolol succinate. Holding lisinopril. We will monitor. 6. History of gout: Adjust the allopurinol dose for kidney function. 6. Gastroesophageal reflux disease: Continue omeprazole. 7. History of hypothyroidism: Continue Synthroid. 8. History of depression and anxiety: On Lexapro. 9. History of paroxysmal atrial tachycardia: On Toprol-XL. 10. Deep venous thrombosis prophylaxis: Place her on heparin subcutaneously. DISPOSITION: Closely monitor in the med-tele. PT/OT prior to discharge. Social service to help with discharge planning. Son who is the patient's assembler engine also has health issues. The patient will need more help at home or need placement. Admission and Anticipated Discharge Date Admission Date: May 06, 2022 Subjective Pt seen in follow up of agitation, confusion in the setting of dementia, TENNILLE Pt was just discharged after treatment of UTI Currently still in ED agitated - several ED nurses at the bedside unable to obtain ROS Review of Systems Review of Systems: Unobtainable due to cognitive status Physical Exam Physical Exam: GENERAL: elderly , chronically ill appearing F, agitated HEENT: Pupils somewhat sluggish to react. Head is atraumatic. NECK: No JVD. No neck masses. CARDIOVASCULAR: S1 and S2 heard. Regular rate and rhythm. No murmur, no gallop. RESPIRATORY SYSTEM: Normal AP diameter. No accessory muscle use. No wheezing, no crackles. ABDOMEN: Soft, bowel sounds present, no distention. CENTRAL NERVOUS SYSTEM: awake, agitated, moves extremities EXTREMITIES: No edema, no erythema. Results & Data Results & Data ([facility]) Vital Signs (Past 12 Hours) Vital Signs Temp Pulse Resp BP Pulse Ox Pulse Ox O2 Del Method 05/06/22 10:13 65 15 93/53 L 96 05/06/22 08:00 92 H 14 95/57 L 95 05/06/22 04:33 36.6 C 65 18 128/57 L 99 Nasal Cannula 05/06/22 04:33 98 O2 Del Method O2 Flow Rate O2 Flow Rate 05/06/22 10:13 05/06/22 08:00 05/06/22 04:33 2 05/06/22 04:33 Nasal Cannula 2 Laboratory Results 05/06/22 05/06/22 05/06/22 Range/Units 11:49 06:59 06:59 WBC 8.65 (4.8-10.8) K/ul RBC 3.17 L (3.93-5.22) M/uL Hgb 10.0 L (12.0-16.0) g/dl Hct 31.3 L (34.1-44.9) % MCV 98.7 (80.0-100.0) fL MCH 31.5 (25.0-34.0) pg MCHC 31.9 L (32.0-36.0) g/dL RDW Std Deviation 56.0 H (36.4-46.3) fL RDW Coeff of Mis 15.5 H (11.5-14.5) % Plt Count 294 (130-400) K/uL MPV 10.1 (9.4-12.3) fL Immature Gran % (Auto) 0.5 % Neut % (Auto) 62.6 % Lymph % (Auto) 24.2 % Villalba % (Auto) 7.5 % Eos % (Auto) 4.3 % Baso % (Auto) 0.9 % Neut # (Auto) 5.42 (1.4-6.5) K/uL Lymph # (Auto) 2.09 (1.2-3.4) K/uL Villalba # (Auto) 0.65 (0.24-0.82) K/uL Eos # (Auto) 0.37 (0-0.50) K/uL Baso # (Auto) 0.08 (0-0.2) K/uL Immature Gran # (Auto) 0.04 H (0.00-0.02) K/uL Sodium 142 (136-145) mmol/L Potassium 4.1 (3.5-5.1) mmol/L Chloride 116 H (98-107) mmol/L Carbon Dioxide 18 L (21-32) mmol/L Anion Gap 8 (3-11) BUN 50 H (6-23) mg/dl Creatinine 2.86 H D (0.6-1.2) mg/dl Est Cr Clr Drug Dosing 12.3 Est GFR ( Amer) 16.2 ml/min Est GFR (Non-Af Amer) 14.0 ml/min BUN/Creatinine Ratio 17.5 (10-20) Glucose 103 H (70-99(Fasting)) mg/dl POC Glucose (70-99) mg/dl Calcium 8.6 (8.5-10.1) mg/dl Magnesium 1.8 (1.7-2.4) mg/dl Total Bilirubin (0.2-1.0) mg/dl AST (13-39) U/L ALT (7-52) U/L Alkaline Phosphatase (34-104) U/L Troponin I High Sens (0-14) pg/ml Total Protein (6.0-8.3) gm/dl Albumin (3.4-5.0) gm/dl Globulin (2.5-4.0) gm/dl Albumin/Globulin Ratio (0.9-2) Lipase (11-82) U/L Urine Color Urine Appearance (Clear) Urine pH (4.5-7.5) Ur Specific Zachary (1.000-1.030) Urine Protein (Negative) Urine Glucose (UA) (Negative) Urine Ketones (Negative) Urine Blood (Negative) Urine Nitrite (Negative) Urine Bilirubin (Negative) Urine Urobilinogen (Negative) Ur Leukocyte Esterase (Negative) Urine WBC (Auto) (0-5) /hpf Urine RBC (Auto) (0-4) /hpf U Hyaline Cast (Auto) (0-5) /lpf U Epithel Cells (Auto) (0-5) /lpf Urine Bacteria (Auto) (Negative) Ur Renal Epithelial Cell Random Vancomycin 16.4 (10-20) mcg/ml SARS-CoV-2, RNA, NAAT (NEGATIVE) 05/05/22 05/05/22 05/05/22 Range/Units Unknown 22:30 22:05 WBC (4.8-10.8) K/ul RBC (3.93-5.22) M/uL Hgb (12.0-16.0) g/dl Hct (34.1-44.9) % MCV (80.0-100.0) fL MCH (25.0-34.0) pg MCHC (32.0-36.0) g/dL RDW Std Deviation (36.4-46.3) fL RDW Coeff of Mis (11.5-14.5) % Plt Count (130-400) K/uL MPV (9.4-12.3) fL Immature Gran % (Auto) % Neut % (Auto) % Lymph % (Auto) % Villalba % (Auto) % Eos % (Auto) % Baso % (Auto) % Neut # (Auto) (1.4-6.5) K/uL Lymph # (Auto) (1.2-3.4) K/uL Villalba # (Auto) (0.24-0.82) K/uL Eos # (Auto) (0-0.50) K/uL Baso # (Auto) (0-0.2) K/uL Immature Gran # (Auto) (0.00-0.02) K/uL Sodium (136-145) mmol/L Potassium (3.5-5.1) mmol/L Chloride (98-107) mmol/L Carbon Dioxide (21-32) mmol/L Anion Gap (3-11) BUN (6-23) mg/dl Creatinine (0.6-1.2) mg/dl Est Cr Clr Drug Dosing Est GFR ( Amer) ml/min Est GFR (Non-Af Amer) ml/min BUN/Creatinine Ratio (10-20) Glucose (70-99(Fasting)) mg/dl POC Glucose 182 H (70-99) mg/dl Calcium (8.5-10.1) mg/dl Magnesium (1.7-2.4) mg/dl Total Bilirubin (0.2-1.0) mg/dl AST (13-39) U/L ALT (7-52) U/L Alkaline Phosphatase (34-104) U/L Troponin I High Sens (0-14) pg/ml Total Protein (6.0-8.3) gm/dl Albumin (3.4-5.0) gm/dl Globulin (2.5-4.0) gm/dl Albumin/Globulin Ratio (0.9-2) Lipase (11-82) U/L Urine Color Dark Yellow Urine Appearance Clear (Clear) Urine pH 5.0 (4.5-7.5) Ur Specific Zachary 1.017 (1.000-1.030) Urine Protein 2+ H (Negative) Urine Glucose (UA) Negative (Negative) Urine Ketones Trace H (Negative) Urine Blood Negative (Negative) Urine Nitrite Negative (Negative) Urine Bilirubin Negative (Negative) Urine Urobilinogen Negative (Negative) Ur Leukocyte Esterase 1+ H (Negative) Urine WBC (Auto) 10-30 H (0-5) /hpf Urine RBC (Auto) 0-4 (0-4) /hpf U Hyaline Cast (Auto) >30 H (0-5) /lpf U Epithel Cells (Auto) >30 H (0-5) /lpf Urine Bacteria (Auto) Negative (Negative) Ur Renal Epithelial Cell Not Reportable Random Vancomycin (10-20) mcg/ml SARS-CoV-2, RNA, NAAT NEGATIVE (NEGATIVE) 05/05/22 05/05/22 Range/Units 22:00 22:00 WBC 13.91 H (4.8-10.8) K/ul RBC 3.80 L (3.93-5.22) M/uL Hgb 12.0 (12.0-16.0) g/dl Hct 36.9 (34.1-44.9) % MCV 97.1 (80.0-100.0) fL MCH 31.6 (25.0-34.0) pg MCHC 32.5 (32.0-36.0) g/dL RDW Std Deviation 55.8 H (36.4-46.3) fL RDW Coeff of Mis 15.5 H (11.5-14.5) % Plt Count 357 (130-400) K/uL MPV 10.8 (9.4-12.3) fL Immature Gran % (Auto) 0.4 % Neut % (Auto) 70.3 % Lymph % (Auto) 18.5 % Villalba % (Auto) 7.3 % Eos % (Auto) 2.7 % Baso % (Auto) 0.8 % Neut # (Auto) 9.77 H (1.4-6.5) K/uL Lymph # (Auto) 2.58 (1.2-3.4) K/uL Villalba # (Auto) 1.02 H (0.24-0.82) K/uL Eos # (Auto) 0.38 (0-0.50) K/uL Baso # (Auto) 0.11 (0-0.2) K/uL Immature Gran # (Auto) 0.05 H (0.00-0.02) K/uL Sodium 139 (136-145) mmol/L Potassium 4.6 (3.5-5.1) mmol/L Chloride 107 (98-107) mmol/L Carbon Dioxide 18 L (21-32) mmol/L Anion Gap 14 H (3-11) BUN 55 H (6-23) mg/dl Creatinine 3.74 H (0.6-1.2) mg/dl Est Cr Clr Drug Dosing Not Reportable Est GFR ( Amer) 11.7 ml/min Est GFR (Non-Af Amer) 10.1 ml/min BUN/Creatinine Ratio 14.7 (10-20) Glucose 186 H (70-99(Fasting)) mg/dl POC Glucose (70-99) mg/dl Calcium 9.8 (8.5-10.1) mg/dl Magnesium (1.7-2.4) mg/dl Total Bilirubin 0.3 (0.2-1.0) mg/dl AST 21 (13-39) U/L ALT 15 (7-52) U/L Alkaline Phosphatase 90 (34-104) U/L Troponin I High Sens 17.0 H D (0-14) pg/ml Total Protein 7.4 (6.0-8.3) gm/dl Albumin 4.3 (3.4-5.0) gm/dl Globulin 3.1 (2.5-4.0) gm/dl Albumin/Globulin Ratio 1.4 (0.9-2) Lipase 65 (11-82) U/L Urine Color Urine Appearance (Clear) Urine pH (4.5-7.5) Ur Specific Zachary (1.000-1.030) Urine Protein (Negative) Urine Glucose (UA) (Negative) Urine Ketones (Negative) Urine Blood (Negative) Urine Nitrite (Negative) Urine Bilirubin (Negative) Urine Urobilinogen (Negative) Ur Leukocyte Esterase (Negative) Urine WBC (Auto) (0-5) /hpf Urine RBC (Auto) (0-4) /hpf U Hyaline Cast (Auto) (0-5) /lpf U Epithel Cells (Auto) (0-5) /lpf Urine Bacteria (Auto) (Negative) Ur Renal Epithelial Cell Random Vancomycin (10-20) mcg/ml SARS-CoV-2, RNA, NAAT (NEGATIVE) Medications Administered Current Inpatient Medications Acetaminophen (Acetaminophen 325 Mg Tab) 650 mg PO Q4H PRN PRN Reason: Pain or Fever Stop: 06/05/22 04:24 Allopurinol (Allopurinol 100 Mg Tab) 200 mg PO DAILY [facility] Stop: 06/05/22 08:59 Last Admin: 05/06/22 09:11 Dose: Not Given Escitalopram Oxalate (Escitalopram Oxalate 10 Mg Tab) 10 mg PO QPM SARAN Stop: 06/05/22 20:59 Folic Acid (Folic Acid 1 Mg Tab) 1 mg PO QAM SARAN Stop: 06/05/22 08:59 Heparin Sodium (Porcine) (Heparin Sod 5,000 Unit/0.5 Ml Vial) 5,000 units SQ Q12 SARAN Stop: 06/05/22 08:59 Last Admin: 05/06/22 09:12 Dose: Not Given Sodium Chloride (Nss 1000ml) 1,000 mls @ 80 mls/hr IV .[id number] SARAN Stop: 06/05/22 04:24 Last Admin: 05/06/22 04:43 Dose: 80 mls/hr Cefepime HCl 1,000 mg/ Syringe 11.3 mls @ 5.5 mls/min IV Q24H [facility]; Protocol Stop: 05/16/22 21:59 Vancomycin HCl 750 mg/ Sodium (Chloride) 265 mls @ 200 mls/hr IV NOW ONE Stop: 05/06/22 16:04 Levothyroxine Sodium (Levothyroxine Sodium 75 Mcg Tablet) 75 mcg PO DAILYBB [facility] Stop: 06/05/22 06:29 Last Admin: 05/06/22 06:13 Dose: 75 mcg Loratadine (Loratadine 10 Mg Tab) 10 mg PO DAILY PRN PRN Reason: Allergy Symptoms Stop: 06/05/22 04:24 Melatonin (Melatonin 3 Mg Tab) 9 mg PO HS PRN PRN Reason: Insomnia Stop: 06/05/22 04:36 Metoprolol Succinate (Metoprolol Succ 50mg Ext Rel Tab) 50 mg PO QAM [facility] Stop: 06/05/22 08:59 Last Admin: 05/06/22 08:04 Dose: Not Given Miscellaneous Information (Vancomycin Consult Active) 1 each N/A UD PRN PRN Reason: Consult Stop: 06/04/22 23:31 Nitroglycerin (Nitroglycerin Sl 0.4 Mg/Tab Tab) 0.4 mg SL UD PRN PRN Reason: Chest Pain Stop: 06/05/22 04:24 Olanzapine (Olanzapine 10 Mg/2.1 Ml Sdv) 2.5 mg IM TID PRN PRN Reason: Agitation Stop: 06/05/22 08:59 Pantoprazole Sodium (Pantoprazole 40 Mg Tab) 40 mg PO BID [facility] Stop: 06/05/22 08:59 Last Admin: 05/06/22 09:12 Dose: Not Given Polyethylene Glycol (Polyethylene (Miralax) 17 Gm Pack) 17 gm PO DAILY PRN PRN Reason: Constipation Stop: 06/05/22 04:24
[2022-05-06] MEDS: ESCITALOPRAM OXALATE 10 MG TAB PO SCH (21:21)
[2022-05-06] MEDS: CEFEPIME 1,000 MG in SYRINGE 0 ML IV SCH (21:45)
[2022-05-06] MEDS ORDERED: CEFEPIME 500 MG in SYRINGE 0 ML IV SCH (22:00)
[2022-05-07] MEDS: OLANZapine 10 MG/2.1 ML SDV IM PRN ×3 (00:33→23:34)
[2022-05-07] MEDS: SODIUM CHLORIDE 0.9% 1000ML 1,000 ML IV SCH (05:48)
[2022-05-07 06:07] LABS: BUN Creatinine Ratio 19.3 (10-20); Calcium 9.8 mg/dl (8.5-10.1); Creatinine Clr Calc Pharmacy 23.5 ml/min; Est GFR (African American) 35.4 ml/min; Est GFR (Non-African American) 30.6 ml/min; Magnesium 1.8 mg/dl (1.7-2.4); Phosphorus 2.8 mg/dl (2.5-4.9); Potassium 4.1 mmol/L (3.5-5.1)
[2022-05-07] MEDS: LEVOTHYROXINE SODIUM 75 MCG TABLET PO SCH (07:38)
[2022-05-07] MEDS ORDERED: VANCOMYCIN HCL 1,000 MG in SODIUM CHLORIDE 0.9% 250 ML IV STA (08:12)
[2022-05-07] MEDS ORDERED: ACETAMINOPHEN 1,000 MG/100 ML VIAL IV STA (09:34)
[2022-05-07] MEDS: FOLIC ACID 1 MG TAB PO SCH (10:25)
[2022-05-07] MEDS: METOPROLOL SUCC 50MG EXT REL TAB PO SCH (10:25)
[2022-05-07] MEDS: PANTOprazole 40 MG TAB PO SCH ×2 (10:25→21:37)
[2022-05-07] MEDS: HEPARIN SOD 5,000 UNIT/0.5 ML VIAL SQ SCH ×2 (10:25→21:37)
[2022-05-07] MEDS: allopurinoL 100 MG TAB PO SCH (10:25)
--- NOTE | 2022-05-07 11:34 | Pharmacy Report ---
Pharmacy PK ABX Note - Date of Service May 07, 2022 - Assessment and Plan Assessment * 89 year old F receiving cefepime and vancomycin for treatment of UTI * Recent hospitalization and discharge on 05/04 for E. faecium UTI for which the patient was on effective dapto therapy x8 days from 04/28-05/05. Re-admitted 05/05 PM for confusion, agitation, and TENNILLE * PMH: T2DM, CKD III, Alzheimers, bladder CA * Pertinent microbiologic data includes: Urine culture 04/25 w E. faecium (sensitive to vanco and dapto). No positive microbio yet this admit * SCr trending down significantly Vancomycin * Target AUC/SHERYL of 400-600 mg/L.hr * TENNILLE noted, albeit improving - will still dose via level * Random level today of 14.2 mcg/mL - will give another small supplemental dose, albeit larger than yesterday Plan * Additional vancomycin 1000 mg IV x1 * Random level with AM labs tomorrow Pharmacy will continue to follow and will adjust dose/frequency as necessary. Thank you. Pharmacy has transitioned to AUC monitoring for vancomycin. AUC/SHERYL is the preferred PK/PD target and is associated with decreased risk of nephrotoxicity compared to traditional trough targets.
--- NOTE | 2022-05-07 17:01 | Nephrology Progress Note ---
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 On next recheck summer 2019, eGFR running at 22- 25 mL/min. Last seen by Dr Deleon on 08/11/2020 ( Scr-1.9, eGFR- 23.3);On last Labs on [facility] her SCr was 1.2 with eGFR of 39.0( 07/24/21).Her baseline scr was 1.3 when she had presented with UTI ( peak 1.8) earlier this month Acute on chronic Kidney failure- Likley 2/combination UTI and prerenal Etiology. - Agree with gentle fluid rehydration and broad spectrum abx unless culture avaliable. - Non contrast CT Abdomen/ pelvis shows non obstructive nephrolithiasis with no hydronephrosis with bladder wall thickening- CAN be followed as outpatient ( urology and nephrology). - Keep vancomycin level 15-20 - NG Metabolic acidois > likely from NS; change to D5W w/ 75 mEq/L Na bicarb at 80 continuous; will hold if sob - Daily input and output - BMP - Continue to hold Lisinopril. -Due to advancing dementia and anxiety, she is likely a very poor dialysis candidate should the need arise. (2) Hypertension: Plan: presently hypotensive - hold lisinopril and continue with fluids (3) AMS (altered mental status): Plan: Has baseline Dementia,worse 2/ infection. Admission and Anticipated Discharge Date Admission Date: May 06, 2022 Subjective has a sitter/ easliy agitated; denies pain or N or dyspnea to me; ROS limited by pt fatigue Review of Systems Review of Systems: Other (as above) Physical Exam Constitutional: well developed and well nourished; no acute distress Eyes: EOM intact bilaterally ENMT: Ears: no external ear abnormality Nose: no external nose abnormality Mouth: + dry oral mucous membranes Neck: no nuchal rigidity Respiratory: normal respiratory effort Auscultation: + diminished lung sounds Cardiovascular: Rate/Rhythm: regular rate and regular rhythm Extremities: no edema Gastrointestinal (Abdomen): Inspection/Auscultation: normal bowel sounds Percussion/Palpation: abdomen soft; abdomen nontender Musculoskeletal: Extremities: strength 5/5 throughout Skin: no rashes, warm and dry Neurologic: streeter, fluent speech, no tremor Psychiatric: Orientation: oriented to person Results & Data ([facility]) Vital Signs (Past 12 Hours) Vital Signs Temp Pulse Resp BP BP Pulse Ox O2 Del Method 05/07/22 08:19 36.6 C 92 H 20 145/98 H 96 Room Air 05/07/22 07:51 78 22 135/74 94 Room Air 05/07/22 06:00 72 18 134/70 98 Nasal Cannula O2 Flow Rate 05/07/22 08:19 05/07/22 07:51 05/07/22 06:00 2 Laboratory Results 05/06/22 06:59 05/07/22 05:20
[2022-05-07] MEDS: SODIUM BICARBONATE 8.4% 75 MEQ in DEXTROSE 5% 1,000 ML IV SCH (17:46)
[2022-05-07] MEDS: ESCITALOPRAM OXALATE 10 MG TAB PO SCH (21:36)
[2022-05-07] MEDS: CEFEPIME 1,000 MG in SYRINGE 0 ML IV SCH (21:37)
[2022-05-08] MEDS ORDERED: HALOPERIDOL LACTATE 5 MG/ML 1 ML VIAL IM STA (00:02)
[2022-05-08] MEDS ORDERED: LORazepam 0.5 MG in SYRINGE 0.25 ML IV ONE (01:45)
[2022-05-08] MEDS: LEVOTHYROXINE SODIUM 75 MCG TABLET PO SCH (05:33)
[2022-05-08] MEDS: SODIUM BICARBONATE 8.4% 75 MEQ in DEXTROSE 5% 1,000 ML IV SCH ×2 (07:38→22:15)
[2022-05-08] MEDS: METOPROLOL SUCC 50MG EXT REL TAB PO SCH ×2 (07:39→10:04)
[2022-05-08] MEDS: PANTOprazole 40 MG TAB PO SCH ×3 (07:40→22:32)
[2022-05-08] MEDS: HEPARIN SOD 5,000 UNIT/0.5 ML VIAL SQ SCH ×2 (07:40→22:27)
[2022-05-08] MEDS: FOLIC ACID 1 MG TAB PO SCH ×2 (07:41→10:04)
[2022-05-08] MEDS: allopurinoL 100 MG TAB PO SCH ×2 (07:41→10:04)
[2022-05-08] MEDS: OLANZapine 10 MG/2.1 ML SDV IM PRN ×2 (07:54→16:33)
[2022-05-08 10:06] LABS: BUN Creatinine Ratio 13.5 (10-20); Creatinine Clr Calc Pharmacy 31.7 ml/min; Potassium 3.9 mmol/L (3.5-5.1)
--- NOTE | 2022-05-08 10:25 | Nephrology Progress Note ---
Date of Service May 08, 2022 Assessment & Plan (1) Acute on chronic renal failure: Plan: CKD 3 B without proteinuria as of summer 2018. On next recheck summer 2019, eGFR running at 22- 25 mL/min. Last seen by Dr Deleon on 08/11/2020 ( Scr-1.9, eGFR- 23.3);On July 2021 labs in [facility] her SCr was 1.2 with eGFR of 39.0( 07/24/21). Her baseline scr was 1.3 when she had presented with UTI ( peak 1.8) earlier this month now resolved acute on chronic Kidney failure- Likley 2/combination UTI and prerenal Etiology. - Agree with gentle fluid rehydration and broad spectrum abx unless culture avaliable. - Non contrast CT Abdomen/ pelvis shows non obstructive nephrolithiasis with no hydronephrosis with bladder wall thickening- CAN be followed as outpatient ( ur ology and nephrology). - Keep vancomycin level 15-20 - NG Metabolic acidosis > resolved w/ IVF change >>>cont D5W w/ 75 mEq/L Na bicarb at 80 continuous; will hold if sob - Daily input and output - BMP - Continue to hold Lisinopril for now -Due to advancing dementia and anxiety, she is a very poor dialysis candidate should the need arise. (2) Hypertension: Plan: presently hypotensive - hold lisinopril and continue with fluids (3) AMS (altered mental status): Plan: Has baseline Dementia,worse 2/ infection. Admission and Anticipated Discharge Date Admission Date: May 06, 2022 Subjective remains w/ sitter; agitated/restrained to get labs today. ROS limited by altered MS > she cannot/ will not answer appropriately Physical Exam Constitutional: well developed, well nourished and + acute distress (mild w/ interaction for exam) Eyes: EOM intact bilaterally ENMT: Ears: no external ear abnormality Nose: no external nose abnormality Mouth: + dry oral mucous membranes Neck: no nuchal rigidity Respiratory: normal respiratory effort Auscultation: + diminished lung sounds Cardiovascular: Rate/Rhythm: regular rate and regular rhythm Extremities: no edema Gastrointestinal (Abdomen): Inspection/Auscultation: abdomen normal to inspection Percussion/Palpation: abdomen soft Musculoskeletal: Extremities: strength 5/5 throughout Skin: no rashes, warm and dry Psychiatric: Orientation: oriented to person Genitourinary: spear w/ ample yellow urine Results & Data ([facility]) Vital Signs (Past 12 Hours) Vital Signs Temp Pulse Pulse Resp BP BP Pulse Ox 05/08/22 08:00 89 05/08/22 08:00 36.7 C 118 H 20 158/86 H 95 05/08/22 04:00 05/07/22 23:06 36.6 C 80 18 156/84 H 98 Pulse Ox O2 Del Method O2 Del Method 05/08/22 08:00 05/08/22 08:00 Room Air 05/08/22 04:00 95 Room Air 05/07/22 23:06 Room Air Laboratory Results 05/06/22 06:59 05/08/22 09:07
[2022-05-08] MEDS ORDERED: VANCOMYCIN HCL 1,000 MG in SODIUM CHLORIDE 0.9% 250 ML IV SCH (11:00)
--- NOTE | 2022-05-08 11:36 | Hospitalist Progress Note ---
Date of Service May 07, 2022 Assessment & Plan (1) AMS (altered mental status): (2) Acute on chronic renal failure: (3) CKD (chronic kidney disease) stage 3, GFR 30-59 ml/min: Plan: 89-year-old female who was recently in the hospital for urinary tract infection with Enterococcus, resistant to penicillin, treated with daptomycin. Comes back with agitation and found to have acute kidney injury. 1. Agitation: The patient has a history of Alzheimer dementia, possible delirium. Received Ativan and Haldol in the Emergency Room, currently again agitated. We will monitor.Zyprexa prn for agitation. 1:1 sitter 2. Urinary tract infection: Recently had Enterococcus urinary tract infection. Could be contributing to her current agitation. Started on vancomycin and cefepime on admission. We will continue for now, to r/o infection, dose them as per the renal function. 3. Acute kidney injury on chronic kidney disease stage III: Baseline creatinine seems to be around 1.3, discharged with creatinine of 1.3, now creatinine on admission is 3.7. gentle fluids Cr improved CT of abdomen and pelvis obtained Nephrology consulted. Avoid nephrotoxic agents. Holding lisinopril. 4. Diabetes: Not on medications. We will monitor the blood sugars. Diabetic diet. Currently, placed her on clear liquid diet until mental status improves. 5. Hypertension: On metoprolol succinate. Holding lisinopril. We will monitor. 6. History of gout: Adjust the allopurinol dose for kidney function. 6. Gastroesophageal reflux disease: Continue omeprazole. 7. History of hypothyroidism: Continue Synthroid. 8. History of depression and anxiety: On Lexapro. 9. History of paroxysmal atrial tachycardia: On Toprol-XL. 10. Deep venous thrombosis prophylaxis: Place her on heparin subcutaneously. DISPOSITION: Closely monitor in the med-tele. PT/OT prior to discharge. Social service to help with discharge planning. Son who is the patient's uptwist spinner also has health issues. The patient will need more help at home or need placement. Admission and Anticipated Discharge Date Admission Date: May 06, 2022 Subjective Pt seen in follow up of agitation, confusion in the setting of dementia, TENNILLE Pt was just discharged after treatment of UTI Currently resting in bed, in NAD, 1:1 sitter present in room unable to obtain ROS Cr improved Review of Systems Review of Systems: Unobtainable due to cognitive status Physical Exam Physical Exam: GENERAL: elderly , chronically ill appearing F, drowsy HEENT: Pupils somewhat sluggish to react. NECK: No JVD. No neck masses. CARDIOVASCULAR: S1 and S2 heard. Regular rate and rhythm. No murmur, no gallop. RESPIRATORY SYSTEM: Normal AP diameter. No accessory muscle use. No wheezing, no crackles. ABDOMEN: Soft, bowel sounds present, no distention. CENTRAL NERVOUS SYSTEM: drowsy but easily arousable, moves extremities EXTREMITIES: No edema, no erythema. Results & Data Results & Data ([facility]) Vital Signs (Past 12 Hours)
--- NOTE | 2022-05-08 11:38 | Hospitalist Progress Note ---
Date of Service May 08, 2022 Assessment & Plan (1) AMS (altered mental status): (2) Acute on chronic renal failure: (3) CKD (chronic kidney disease) stage 3, GFR 30-59 ml/min: Plan: 89-year-old female who was recently in the hospital for urinary tract infection with Enterococcus, resistant to penicillin, treated with daptomycin. Comes back with agitation and found to have acute kidney injury. 1. Agitation: The patient has a history of Alzheimer dementia, possible delirium. Received Ativan and Haldol in the Emergency Room - gets easily agitated We will monitor.Zyprexa prn for agitation. 1:1 sitter 2. hx of Urinary tract infection: Recently had Enterococcus urinary tract infection. Could be contributing to her current agitation. Started on vancomycin and cefepime on admission. UA negative Ucultx - negat. Blood cultx - negat. in 48 hrs We will dc Abx 3. Acute kidney injury on chronic kidney disease stage III: resolved Baseline creatinine seems to be around 1.3, discharged with creatinine of 1.3, now creatinine on admission is 3.7. gentle fluids Cr improved back to baseline CT of abdomen and pelvis obtained IMPRESSION: 1. Bilateral nephrolithiasis. No ureteral calculi or hydronephrosis. Mild bladder wall thickening which could be correlated with urinalysis. 2. No bowel obstruction. No bowel wall thickening identified on unenhanced exam. Nephrology consulted. Avoid nephrotoxic agents. Holding lisinopril. 4. Diabetes: Not on medications. We will monitor the blood sugars. Diabetic diet. Currently, placed her on clear liquid diet until mental status improves. 5. Hypertension: On metoprolol succinate. Holding lisinopril. We will monitor. 6. History of gout: Adjust the allopurinol dose for kidney function. 6. Gastroesophageal reflux disease: Continue omeprazole. 7. History of hypothyroidism: Continue Synthroid. 8. History of depression and anxiety: On Lexapro. 9. History of paroxysmal atrial tachycardia: On Toprol-XL. 10. Deep venous thrombosis prophylaxis: Place her on heparin subcutaneously. DISPOSITION: Closely monitor in the med-tele. PT/OT prior to discharge. Social service to help with discharge planning. Son who is the patient's practice managers also has health issues. The patient will need more help at home or need placement. Admission and Anticipated Discharge Date Admission Date: May 06, 2022 Subjective Pt seen in follow up of agitation, confusion in the setting of dementia, TENNILLE Pt was just discharged after treatment of UTI Currently resting in bed, in NAD, 1:1 sitter present in room unable to obtain ROS Cr improved, TENNILLE resolved Review of Systems Review of Systems: Unobtainable due to cognitive status Physical Exam Physical Exam: GENERAL: elderly , chronically ill appearing F, drowsy HEENT: Pupils somewhat sluggish to react. NECK: No JVD. No neck masses. CARDIOVASCULAR: S1 and S2 heard. Regular rate and rhythm. No murmur, no gallop. RESPIRATORY SYSTEM: Normal AP diameter. No accessory muscle use. No wheezing, no crackles. ABDOMEN: Soft, bowel sounds present, no distention. CENTRAL NERVOUS SYSTEM: drowsy but easily arousable, moves extremities EXTREMITIES: No edema, no erythema. Results & Data Results & Data ([facility]) Vital Signs (Past 12 Hours) Vital Signs Temp Pulse Pulse Resp BP Pulse Ox Pulse Ox 05/08/22 08:00 89 05/08/22 08:00 36.7 C 118 H 20 158/86 H 95 05/08/22 04:00 95 O2 Del Method O2 Del Method 05/08/22 08:00 05/08/22 08:00 Room Air 05/08/22 04:00 Room Air Laboratory Results 05/08/22 05/08/22 Range/Units 09:07 09:07 Sodium 141 (136-145) mmol/L Potassium 3.9 (3.5-5.1) mmol/L Chloride 109 H (98-107) mmol/L Carbon Dioxide 22 (21-32) mmol/L Anion Gap 10 (3-11) BUN 15 (6-23) mg/dl Creatinine 1.11 D (0.6-1.2) mg/dl Est Cr Clr Drug Dosing 31.7 ml/min Est GFR ( Amer) 51.0 ml/min Est GFR (Non-Af Amer) 44.0 ml/min BUN/Creatinine Ratio 13.5 (10-20) Glucose 140 H (70-99(Fasting)) mg/dl Calcium 10.0 (8.5-10.1) mg/dl Random Vancomycin 14.4 (10-20) mcg/ml Medications Administered Current Inpatient Medications Acetaminophen (Acetaminophen 325 Mg Tab) 650 mg PO Q4H PRN PRN Reason: Pain or Fever Stop: 06/05/22 04:24 Allopurinol (Allopurinol 100 Mg Tab) 200 mg PO DAILY [facility] Stop: 06/05/22 08:59 Last Admin: 05/08/22 10:04 Dose: Not Given Escitalopram Oxalate (Escitalopram Oxalate 10 Mg Tab) 10 mg PO QPM [facility] Stop: 06/05/22 20:59 Last Admin: 05/07/22 21:36 Dose: 10 mg Folic Acid (Folic Acid 1 Mg Tab) 1 mg PO QAM SARAN Stop: 06/05/22 08:59 Last Admin: 05/08/22 10:04 Dose: Not Given Heparin Sodium (Porcine) (Heparin Sod 5,000 Unit/0.5 Ml Vial) 5,000 units SQ Q12 [facility] Stop: 06/05/22 08:59 Last Admin: 05/08/22 07:40 Dose: 5,000 units Cefepime HCl 1,000 mg/ Syringe 11.3 mls @ 5.5 mls/min IV Q24H [facility]; Protocol Stop: 05/16/22 21:59 Last Admin: 05/07/22 21:37 Dose: 5.5 mls/min Sodium Bicarbonate 75 meq/ (Dextrose) 1,075 mls @ 80 mls/hr IV .[id number] [facility] Stop: 06/06/22 17:44 Last Admin: 05/08/22 07:38 Dose: 80 mls/hr Vancomycin HCl 1,000 mg/ (Sodium Chloride) 270 mls @ 200 mls/hr IV Q24H [facility] Stop: 05/15/22 23:59 Last Admin: 05/08/22 10:41 Dose: 200 mls/hr Levothyroxine Sodium (Levothyroxine Sodium 75 Mcg Tablet) 75 mcg PO DAILYBB [facility] Stop: 06/05/22 06:29 Last Admin: 05/08/22 05:33 Dose: Not Given Loratadine (Loratadine 10 Mg Tab) 10 mg PO DAILY PRN PRN Reason: Allergy Symptoms Stop: 06/05/22 04:24 Melatonin (Melatonin 3 Mg Tab) 9 mg PO HS PRN PRN Reason: Insomnia Stop: 06/05/22 04:36 Metoprolol Succinate (Metoprolol Succ 50mg Ext Rel Tab) 50 mg PO QAM [facility] Stop: 06/05/22 08:59 Last Admin: 05/08/22 10:04 Dose: Not Given Miscellaneous Information (Vancomycin Consult Active) 1 each N/A UD PRN PRN Reason: Consult Stop: 06/04/22 23:31 Nitroglycerin (Nitroglycerin Sl 0.4 Mg/Tab Tab) 0.4 mg SL UD PRN PRN Reason: Chest Pain Stop: 06/05/22 04:24 Olanzapine (Olanzapine 10 Mg/2.1 Ml Sdv) 2.5 mg IM TID PRN PRN Reason: Agitation Stop: 06/05/22 08:59 Last Admin: 05/08/22 07:54 Dose: 2.5 mg Pantoprazole Sodium (Pantoprazole 40 Mg Tab) 40 mg PO BID SARAN Stop: 06/05/22 08:59 Last Admin: 05/08/22 10:05 Dose: Not Given Polyethylene Glycol (Polyethylene (Miralax) 17 Gm Pack) 17 gm PO DAILY PRN PRN Reason: Constipation Stop: 06/05/22 04:24
[2022-05-08] MEDS: CEFEPIME 1,000 MG in SYRINGE 0 ML IV SCH (13:26)
--- NOTE | 2022-05-08 15:23 | Pharmacy Report ---
Pharmacy PK ABX Note - Date of Service May 08, 2022 - Assessment and Plan Assessment * 89 year old F receiving cefepime and vancomycin for treatment of UTI * Recent hospitalization and discharge on 05/04 for E. faecium UTI for which the patient was on effective dapto therapy x8 days from 04/28-05/05. Re-admitted 05/05 PM for confusion, agitation, and TENNILLE * PMH: T2DM, CKD III, Alzheimers, bladder CA * Pertinent microbiologic data includes: Urine culture 04/25 w E. faecium (sensitive to vanco and dapto). No positive microbio yet this admit * SCr trending down significantly Vancomycin * Target AUC/SHERYL of 400-600 mg/L.hr * Pharmacy has transitioned to AUC monitoring for vancomycin. AUC/SHERYL is the preferred PK/PD target and is associated with decreased risk of nephrotoxicity compared to traditional trough targets. * TENNILLE noted, SCr continues to trend down (3.74 -> 2.86 -> 1.5 -> 1.11) * Random level today of 14.4 mcg/mL Plan * Will schedule Vancomycin 1gm IV q24, as SCr has improved to baseline. * Will check a trough level prior to the third maintenance dose of this regimen. Pharmacy will continue to follow and will adjust dose/frequency as necessary. Thank you.
[2022-05-08] MEDS: ESCITALOPRAM OXALATE 10 MG TAB PO SCH (22:31)
[2022-05-09] MEDS ORDERED: ACETAMINOPHEN 1,000 MG/100 ML VIAL IV STA (01:21)
[2022-05-09] MEDS: CEFEPIME 1,000 MG in SYRINGE 0 ML IV SCH (02:13)
[2022-05-09] MEDS: LEVOTHYROXINE SODIUM 75 MCG TABLET PO SCH (06:30)
[2022-05-09] MEDS: allopurinoL 100 MG TAB PO SCH (09:19)
[2022-05-09] MEDS: HEPARIN SOD 5,000 UNIT/0.5 ML VIAL SQ SCH ×2 (09:19→21:48)
[2022-05-09] MEDS: FOLIC ACID 1 MG TAB PO SCH (09:19)
[2022-05-09] MEDS: METOPROLOL SUCC 50MG EXT REL TAB PO SCH (09:19)
[2022-05-09] MEDS: PANTOprazole 40 MG TAB PO SCH ×2 (09:20→21:47)
--- NOTE | 2022-05-09 10:14 | Nephrology Progress Note ---
Date of Service May 09, 2022 Assessment & Plan (1) Acute on chronic renal failure: Plan: CKD 3 B without proteinuria as of summer 2018. On next recheck summer 2019, eGFR running at 22- 25 mL/min. Last seen by Dr Deleon on 08/11/2020 ( Scr-1.9, eGFR- 23.3);On July 2021 labs in [facility] her SCr was 1.2 with eGFR of 39.0( 07/24/21). Her baseline scr was 1.3 when she had presented with UTI ( peak 1.8) earlier this month now resolved acute on chronic Kidney failure- Likley 2/combination UTI and prerenal Etiology. - resolved with gentle fluid rehydration and broad spectrum abx - Non contrast CT Abdomen/ pelvis shows non obstructive nephrolithiasis with no hydronephrosis with bladder wall thickening- CAN be followed as outpatient ( urology and nephrology). - Keep vancomycin level 15-20 - NG Metabolic acidosis > resolved w/ IVF change >>>changed IVF to 1/2 NS at 50 mL /hr - Daily input and output - BMP - Ok to resume lisinopril 5 mg next few days -Due to advancing dementia and anxiety, she is a very poor dialysis candidate should the need arise. Will sign off; pls call if ? D/C recs -resume OP lisinopril, lasix -no nsaids at d/c -bmp one week after d/c to be ordered by facility -routine CKD f/u appt w/ neph PA next 6-8 wks (2) Hypertension: Plan: presently hypotensive - hold lisinopril and continue with fluids (3) AMS (altered mental status): Plan: Has baseline Dementia,worse 2/ infection. Admission and Anticipated Discharge Date Admission Date: May 06, 2022 Subjective no interval events; still w/ sitter, in restraints Review of Systems Review of Systems: Unobtainable due to cognitive status Physical Exam Constitutional: well developed, well nourished and + acute distress (mild w/ interaction for exam) Eyes: EOM intact bilaterally ENMT: Ears: no external ear abnormality Nose: no external nose abnormality Mouth: + dry oral mucous membranes Neck: no nuchal rigidity Respiratory: normal respiratory effort Auscultation: + diminished lung sounds Cardiovascular: Rate/Rhythm: regular rate and regular rhythm Extremities: no edema Gastrointestinal (Abdomen): Inspection/Auscultation: abdomen normal to inspection and normal bowel sounds Percussion/Palpation: abdomen soft; abdomen nontender Musculoskeletal: Extremities: strength 5/5 throughout Skin: no rashes, warm and dry Neurologic: attempts to communicate > some slurred speech; not oriented to place Psychiatric: Orientation: oriented to person Results & Data ([facility]) Vital Signs (Past 12 Hours) Vital Signs Pulse O2 Del Method 05/09/22 03:11 Room Air 05/08/22 22:28 105 H Laboratory Results 05/06/22 06:59 05/08/22 09:07
[2022-05-09] MEDS: SODIUM BICARBONATE 8.4% 75 MEQ in DEXTROSE 5% 1,000 ML IV SCH (10:46)
[2022-05-09] MEDS: SODIUM CHLORIDE 0.45 % 1,000 ML IV SCH (10:46)
[2022-05-09 11:16] LABS: Hematocrit (blood only) 32.6 % (34.1-44.9); Hemoglobin 11.2 g/dl (12.0-16.0); Mean Corpuscular Hemoglobin 31.7 pg (25.0-34.0); Mean Corpuscular Hgb Conc 34.4 g/dL (32.0-36.0); Mean Corpuscular Volume 92.4 fL (80.0-100.0); Mean Platelet Volume 10.5 fL (9.4-12.3); Platelet Count 317 K/uL (130-400); RDW Coefficient of Variation 14.9 % (11.5-14.5); RDW Standard Deviation 50.1 fL (36.4-46.3); Red Blood Count 3.53 M/uL (3.93-5.22); White Blood Count 7.68 K/ul (4.8-10.8)
[2022-05-09 11:36] LABS: Calcium 9.1 mg/dl (8.5-10.1); Creatinine Clr Calc Pharmacy 26.6 ml/min; Est GFR (African American) 44.2 ml/min; Est GFR (Non-African American) 38.1 ml/min
[2022-05-09] MEDS: ACETAMINOPHEN 325 MG TAB PO PRN (13:19)
[2022-05-09] MEDS ORDERED: POTASSIUM CHLORIDE CRTAB 20 MEQ TABCR PO STA (15:41)
--- NOTE | 2022-05-09 17:14 | Hospitalist Progress Note ---
Date of Service May 09, 2022 Assessment & Plan (1) AMS (altered mental status): (2) Acute on chronic renal failure: (3) CKD (chronic kidney disease) stage 3, GFR 30-59 ml/min: Plan: 89-year-old female who was recently in the hospital for urinary tract infection with Enterococcus, resistant to penicillin, treated with daptomycin. Comes back with agitation and found to have acute kidney injury. 1. Agitation: The patient has a history of Alzheimer dementia, possible delirium. Received Ativan and Haldol in the Emergency Room She becomes agitated easily Continue .Zyprexa prn for agitation and 1:1 sitter 2. hx of Urinary tract infection: Recently had Enterococcus urinary tract infection. Could be contributing to her current agitation. Started on vancomycin and cefepime on admission. UA and Urine culture - negative Abx discontinued 3. Acute kidney injury on chronic kidney disease stage III: resolved Baseline creatinine seems to be around 1.3, discharged with creatinine of 1.3, creatinine on admission is 3.7. Continue gentle hydration Creatinine back to baseline CT of abdomen and pelvis obtained IMPRESSION: 1. Bilateral nephrolithiasis. No ureteral calculi or hydronephrosis. Mild bladder wall thickening which could be correlated with urinalysis. 2. No bowel obstruction. No bowel wall thickening identified on unenhanced exam. Nephrology consulted. Avoid nephrotoxic agents. Holding lisinopril. Diabetes Not on medications. Most recent hemoglobin A1c 6.7 Continue monitor blood sugar Hypertension: Continue metoprolol succinate. Lisinopril has been on hold History of gout: Continue allopurinol Gastroesophageal reflux disease: Continue omeprazole. History of hypothyroidism: Continue Synthroid. History of depression and anxiety: On Lexapro. History of paroxysmal atrial tachycardia: On Toprol-XL. Deep venous thrombosis prophylaxis: Place her on heparin subcutaneously. DISPOSITION: Closely monitor in the [employer]-[facility]. PT/OT prior to discharge. Social service to help with discharge planning. Son who is the patient's oil winterizer also has health issues. The patient will need more help at home or need placement. Admission and Anticipated Discharge Date Admission Date: May 06, 2022 Subjective Pt was seen and examined for follow up of agitation Lying in bed with no acute distress with 1 to 1 sitter. Pt started to be agitated She did not want to answer any question and She refused to let me examined her because she was agitated Review of Systems Review of Systems: All systems reviewed & are unremarkable except as noted in Subjective Physical Exam Physical Exam: General- getting agitating Head- atraumatic Neuro- moves all 4 extremities, started to get agitated Results & Data Results & Data ([facility]) Vital Signs (Past 12 Hours) Vital Signs Temp Pulse Pulse Resp BP Pulse Ox O2 Del Method 05/09/22 15:52 36.6 C 86 20 94/62 L 92 05/09/22 15:24 93 H 05/09/22 13:31 80 05/09/22 13:26 Room Air
[2022-05-09] MEDS ORDERED: POTASSIUM CHLORIDE CRTAB 20 MEQ TABCR PO ONE (18:00)
[2022-05-09] MEDS: ESCITALOPRAM OXALATE 10 MG TAB PO SCH (21:47)
[2022-05-10] MEDS: SODIUM CHLORIDE 0.45 % 1,000 ML IV SCH (04:56)
[2022-05-10] MEDS: LEVOTHYROXINE SODIUM 75 MCG TABLET PO SCH (06:06)
[2022-05-10] MEDS: allopurinoL 100 MG TAB PO SCH (07:42)
[2022-05-10] MEDS: FOLIC ACID 1 MG TAB PO SCH (07:42)
[2022-05-10] MEDS: PANTOprazole 40 MG TAB PO SCH ×2 (07:43→21:50)
[2022-05-10] MEDS: HEPARIN SOD 5,000 UNIT/0.5 ML VIAL SQ SCH ×2 (07:43→22:12)
[2022-05-10] MEDS: METOPROLOL SUCC 50MG EXT REL TAB PO SCH (09:24)
[2022-05-10 12:58] LABS: BUN Creatinine Ratio 14.3 (10-20); Creatinine Clr Calc Pharmacy 26.2 ml/min; Est GFR (African American) 43.7 ml/min; Est GFR (Non-African American) 37.7 ml/min; Magnesium 1.5 mg/dl (1.7-2.4); Potassium 3.8 mmol/L (3.5-5.1)
[2022-05-10] MEDS: OLANZapine 10 MG/2.1 ML SDV IM PRN (20:04)
[2022-05-10] MEDS: ESCITALOPRAM OXALATE 10 MG TAB PO SCH (21:50)
--- NOTE | 2022-05-10 22:07 | Hospitalist Progress Note ---
Date of Service May 10, 2022 Assessment & Plan (1) AMS (altered mental status): (2) Acute on chronic renal failure: (3) CKD (chronic kidney disease) stage 3, GFR 30-59 ml/min: Plan: 89-year-old female who was recently in the hospital for urinary tract infection with Enterococcus, resistant to penicillin, treated with daptomycin. Comes back with agitation and found to have acute kidney injury. 1. Agitation: The patient has a history of Alzheimer dementia, possible delirium. Received Ativan and Haldol in the Emergency Room She becomes agitated easily Continue .Zyprexa prn for agitation and 1:1 sitter Today she was calm and able to follow command 2. hx of Urinary tract infection: Recently had Enterococcus urinary tract infection. Could be contributing to her current agitation. Started on vancomycin and cefepime on admission. UA and Urine culture - negative Abx discontinued 3. Acute kidney injury on chronic kidney disease stage III: resolved Baseline creatinine seems to be around 1.3, discharged with creatinine of 1.3, creatinine on admission is 3.7. Continue gentle hydration Creatinine back to baseline CT of abdomen and pelvis obtained IMPRESSION: 1. Bilateral nephrolithiasis. No ureteral calculi or hydronephrosis. Mild bladder wall thickening which could be correlated with urinalysis. 2. No bowel obstruction. No bowel wall thickening identified on unenhanced exam. Nephrology consulted. Avoid nephrotoxic agents. Holding lisinopril. Diabetes Not on medications. Most recent hemoglobin A1c 6.7 Continue monitor blood sugar Hypertension: Continue metoprolol succinate. Lisinopril has been on hold History of gout: Continue allopurinol Gastroesophageal reflux disease: Continue omeprazole. History of hypothyroidism: Continue Synthroid. History of depression and anxiety: On Lexapro. History of paroxysmal atrial tachycardia: On Toprol-XL. Deep venous thrombosis prophylaxis: Place her on heparin subcutaneously. DISPOSITION: Closely monitor in the [employer]-tele. PT/OT prior to discharge. Social service to help with discharge planning. Son who is the patient's background check coordinator also has health issues. The patient will need more help at home or need placement. Called son today with no answer Admission and Anticipated Discharge Date Admission Date: May 06, 2022 Subjective Pt was seen and examined for follow up of agitation Sitter in chair with no acute distress with 1 to 1 sitter. She was calm and cooperative today She was answered question appropriately She spoke to son over the phone today I called son unfortunately he did not answered Denies any chest pain, palpitation, dizziness and SOB Review of Systems Review of Systems: All systems reviewed & are unremarkable except as noted in Subjective Physical Exam Physical Exam: General- No acute distress Head- atraumatic Eyes- PERRL, EOMI, ENT- oropharynx clear Neck- supple, no JVD Lungs- clear to auscultation Heart- regular rhythm; no murmur Abdomen- normal bowel sounds, soft, nontender Extremities- no calf tenderness Neuro- alert, oriented, PERRL, EOMI; no facial palsy; no dysarthria Skin- warm & dry Results & Data Results & Data ([facility]) Vital Signs (Past 12 Hours) Vital Signs Pulse 05/10/22 15:04 103 H
[2022-05-11] MEDS: OLANZapine 10 MG/2.1 ML SDV IM PRN (00:54)
[2022-05-11] MEDS ORDERED: OLANZapine 10 MG/2.1 ML SDV IM PRN (01:53)
[2022-05-11] MEDS: LEVOTHYROXINE SODIUM 75 MCG TABLET PO SCH (05:22)
[2022-05-11] MEDS: FOLIC ACID 1 MG TAB PO SCH (08:53)
[2022-05-11] MEDS: METOPROLOL SUCC 50MG EXT REL TAB PO SCH (08:53)
[2022-05-11] MEDS: allopurinoL 100 MG TAB PO SCH (08:53)
[2022-05-11] MEDS: HEPARIN SOD 5,000 UNIT/0.5 ML VIAL SQ SCH ×2 (08:53→22:18)
[2022-05-11] MEDS: PANTOprazole 40 MG TAB PO SCH ×2 (08:53→22:18)
[2022-05-11 11:42] LABS: BUN Creatinine Ratio 12.6 (10-20); Creatinine Clr Calc Pharmacy 27.5 ml/min; Est GFR (African American) 46.9 ml/min; Est GFR (Non-African American) 40.4 ml/min; Magnesium 1.4 mg/dl (1.7-2.4); Potassium 3.7 mmol/L (3.5-5.1)
[2022-05-11] MEDS ORDERED: MAGNESIUM SULFATE / D5W 1 GM/100 ML BAG IV SCH (17:00)
[2022-05-11] MEDS ORDERED: MAGNESIUM OXIDE 400 MG TAB PO ONE (17:31)
[2022-05-11] MEDS: lisinopril 5 MG TAB PO SCH (18:26)
--- NOTE | 2022-05-11 18:35 | Hospitalist Progress Note ---
Date of Service May 11, 2022 Assessment & Plan (1) AMS (altered mental status): (2) Acute on chronic renal failure: (3) CKD (chronic kidney disease) stage 3, GFR 30-59 ml/min: Plan: 89-year-old female who was recently in the hospital for urinary tract infection with Enterococcus, resistant to penicillin, treated with daptomycin. Comes back with agitation and found to have acute kidney injury. 1. Agitation: The patient has a history of Alzheimer dementia, possible delirium. Received Ativan and Haldol in the Emergency Room She becomes agitated easily Continue .Zyprexa prn for agitation and 1:1 sitter She was very pleasant today stable 2. hx of Urinary tract infection: Recently had Enterococcus urinary tract infection. Could be contributing to her current agitation. Started on vancomycin and cefepime on admission. UA and Urine culture - negative Abx discontinued 3. Acute kidney injury on chronic kidney disease stage III: resolved Baseline creatinine seems to be around 1.3, discharged with creatinine of 1.3, creatinine on admission is 3.7. Continue gentle hydration Creatinine back to baseline CT of abdomen and pelvis obtained IMPRESSION: 1. Bilateral nephrolithiasis. No ureteral calculi or hydronephrosis. Mild bladder wall thickening which could be correlated with urinalysis. 2. No bowel obstruction. No bowel wall thickening identified on unenhanced exam. Nephrology consulted. Avoid nephrotoxic agents. Holding lisinopril. Diabetes Not on medications. Most recent hemoglobin A1c 6.7 Continue monitor blood sugar Hypertension: BP started to elevate Continue metoprolol succinate. Lisinopril resumed Hypomagnesemia Mg 1.4 today Mg replaced Continue monitor History of gout: Continue allopurinol Gastroesophageal reflux disease: Continue omeprazole. History of hypothyroidism: Continue Synthroid. History of depression and anxiety: On Lexapro. History of paroxysmal atrial tachycardia: On Toprol-XL. Deep venous thrombosis prophylaxis: Place her on heparin subcutaneously. DISPOSITION: Plan to discharge home with son tomorrow Admission and Anticipated Discharge Date Admission Date: May 06, 2022 Subjective Pt was seen and examined for follow up of agitation Sitter in chair with no acute distress with 1 to 1 sitter. She was very pleasant today I spoke to Son Denis and provided with update. He is planning to take her home tomorrow Denies any chest pain, palpitation, dizziness and SOB Review of Systems Review of Systems: All systems reviewed & are unremarkable except as noted in Subjective Physical Exam Physical Exam: General- No acute distress Head- atraumatic Eyes- PERRL, EOMI, ENT- oropharynx clear Neck- supple, no JVD Lungs- clear to auscultation Heart- regular rhythm; no murmur Abdomen- normal bowel sounds, soft, nontender Extremities- no calf tenderness Neuro- alert, oriented, PERRL, EOMI; no facial palsy; no dysarthria Skin- warm & dry Results & Data Results & Data ([facility]) Vital Signs (Past 12 Hours) Vital Signs Temp Pulse Pulse Resp BP Pulse Ox O2 Del Method 05/11/22 15:09 66 05/11/22 11:40 36.4 C L 70 20 188/78 H 96 Room Air
[2022-05-11] MEDS: ESCITALOPRAM OXALATE 10 MG TAB PO SCH (22:18)
[2022-05-11] MEDS: MAGNESIUM OXIDE 400 MG TAB PO ONE (22:18)
[2022-05-11] MEDS: ACETAMINOPHEN 325 MG TAB PO PRN (22:22)
[2022-05-12] MEDS: ESCITALOPRAM OXALATE 10 MG TAB PO SCH (05:20)
[2022-05-12] MEDS: HEPARIN SOD 5,000 UNIT/0.5 ML VIAL SQ SCH ×2 (05:20→13:05)
[2022-05-12] MEDS: LEVOTHYROXINE SODIUM 75 MCG TABLET PO SCH (05:21)
[2022-05-12] MEDS: PANTOprazole 40 MG TAB PO SCH ×2 (05:21→13:05)
[2022-05-12] MEDS: MAGNESIUM OXIDE 400 MG TAB PO ONE (05:21)
[2022-05-12] MEDS ORDERED: MAGNESIUM OXIDE 400 MG TAB PO ONE (07:00)
[2022-05-12 09:51] LABS: Hematocrit (blood only) 37.7 % (34.1-44.9); Hemoglobin 12.7 g/dl (12.0-16.0); Mean Corpuscular Hemoglobin 31.8 pg (25.0-34.0); Mean Corpuscular Hgb Conc 33.7 g/dL (32.0-36.0); Mean Corpuscular Volume 94.5 fL (80.0-100.0); Mean Platelet Volume 10.3 fL (9.4-12.3); Platelet Count 409 K/uL (130-400); RDW Coefficient of Variation 14.8 % (11.5-14.5); RDW Standard Deviation 51.8 fL (36.4-46.3); Red Blood Count 3.99 M/uL (3.93-5.22); White Blood Count 11.64 K/ul (4.8-10.8)
[2022-05-12] MEDS: METOPROLOL SUCC 50MG EXT REL TAB PO SCH (13:05)
[2022-05-12] MEDS: lisinopril 5 MG TAB PO SCH (13:05)
[2022-05-12] MEDS: FOLIC ACID 1 MG TAB PO SCH (13:05)
[2022-05-12] MEDS: allopurinoL 100 MG TAB PO SCH (13:06)
--- NOTE | 2022-05-14 09:24 | Discharge Summary ---
Date of Service May 12, 2022 Admission HPI Per Admitting Provider CHIEF COMPLAINT: TENNILLE and confusion. HISTORY OF PRESENT ILLNESS: This is an 89-year-old female with past medical history significant for type 2 diabetes, currently not on any medications, history of benign neoplasm of adrenal gland, hyperlipidemia, hypothyroidism, hypertension, paroxysmal atrial tachycardia, GERD, chronic kidney disease stage III, history of acoustic neuroma, history of mild dementia with Alzheimer disease, history of bladder cancer, depression, generalized anxiety disorder, was recently in the hospital for Enterococcus, resistant to penicillin and was treated with daptomycin. She did okay and got discharged on 05/04/2022 to home. She was brought in because of confusion at home and agitated at home. In the ER, had to give her Ativan IV and also 1 mg of Haldol, and currently she is drowsy. She is started on cefepime and vancomycin. I could not get any history from the patient currently. Son , who seems to be her asp net developer, got admitted today. Admission Exam Per Admitting Provider GENERAL: The patient is currently drowsy, responds to painful stimuli. VITAL SIGNS: Temperature 37, pulse 63, respiratory rate 16, blood pressure 121/57, oxygen 100% on 2 liters. HEENT: Pupils somewhat sluggish to react. Head is atraumatic. No facial droop seen. NECK: No JVD. No neck masses. CARDIOVASCULAR: S1 and S2 heard. Regular rate and rhythm. No murmur, no gallop. RESPIRATORY SYSTEM: Normal AP diameter. No accessory muscle use. No wheezing, no crackles. ABDOMEN: Soft, bowel sounds present, no distention. CENTRAL NERVOUS SYSTEM: Drowsy, arousable on waking up and responds to painful stimuli. EXTREMITIES: No edema, no erythema. Principal Diagnosis AMS (altered mental status): Acute on chronic renal failure: CKD (chronic kidney disease) stage 3, GFR 30-59 ml/min: Agitation: Alzheimer dementia Hx of Urinary tract infection: Acute kidney injury on chronic kidney disease stage III: resolved Diabetes Hypertension: Hypomagnesemia Discharge Exam General- No acute distress Head- atraumatic Eyes- PERRL, EOMI, ENT- oropharynx clear Neck- supple, no JVD Lungs- clear to auscultation Heart- regular rhythm; no murmur Abdomen- normal bowel sounds, soft, nontender Extremities- no calf tenderness Neuro- alert, oriented, PERRL, EOMI; no facial palsy; no dysarthria Skin- warm & dry Discharge Data Allergies Allergy/AdvReac Type Severity Reaction Status Date / Time amoxicillin Allergy ITCHING Unverified 05/05/22 22:12 mirtazapine AdvReac Intermediate Increased Verified 05/05/22 22:12 Anxiety morphine AdvReac Intermediate NAUSEA Verified 05/05/22 22:12 oxycodone AdvReac Intermediate GI SYMPTOMS Verified 05/05/22 22:12 Consultations 05/06/22 00:54 ED Decision to Admit Stat 05/06/22 08:00 Consult Nephrology Routine Ordered Studies 05/05/22 22:43 CT head/brain wo con Urgent 05/06/22 02:03 CT Abd and Pelvis [CT abd pelvis wo con] Urgent CT OF THE ABDOMEN AND PELVIS WITHOUT CONTRAST CLINICAL HISTORY: Acute kidney injury. Urinary tract infection. COMPARISON STUDY: CT of the abdomen and pelvis December 29, 2021. TECHNIQUE: Axial images of the abdomen and pelvis were obtained without IV contrast. Images were reviewed in the axial, sagittal, and coronal planes. Automated exposure control was utilized for the study. A dose lowering technique was utilized adhering to the principles of ALARA. FINDINGS: No pneumatosis, free air or portal venous gas is present. Multiple bilateral renal calculi are noted. The largest is an 8 mm left lower pole calculus. No ureteral calculi are present. There is no hydronephrosis. Water attenuation lesion within the lower pole of the right kidney was shown to reflect a cyst on prior contrast enhanced CT. There is moderate renal cortical thinning. Mild symmetric bilateral perinephric stranding is noted. Evaluation of the remainder of the abdomen and pelvis is suboptimal on this unenhanced exam. Liver, spleen, right adrenal gland and pancreas are unremarkable. 1.6 cm low- attenuation left adrenal nodule is unchanged. This favors an adenoma. No evidence for a bowel obstruction. Appendix is not visualized. No lymphadenopathy is present. Extensive aortoiliac atherosclerotic plaque is noted. No acute frac ture within visualized skeletal structures. There is no abdominal or pelvic lymphadenopathy. No fluid collection is identified to suggest an abscess. There is mild bladder wall thickening. IMPRESSION: 1. Bilateral nephrolithiasis. No ureteral calculi or hydronephrosis. Mild bladder wall thickening which could be correlated with urinalysis. 2. No bowel obstruction. No bowel wall thickening identified on unenhanced exam. ACT 112: Negative or not required by law. Electronically signed by: Andrés Caraballo M.D. 05/06/2022 8:50 AM Dictated:05/06/22840 Transcribed: 05/06/22840 Hospital Course (1) AMS (altered mental status): (2) Acute on chronic renal failure: (3) CKD (chronic kidney disease) stage 3, GFR 30-59 ml/min: 89-year-old female who was recently in the hospital for urinary tract infection with Enterococcus, resistant to penicillin, treated with daptomycin. Comes back with agitation and found to have acute kidney injury. 1. Agitation: The patient has a history of Alzheimer dementia, possible delirium. Received Ativan and Haldol in the Emergency Room She becomes agitated easily Continue .Zyprexa prn for agitation and 1:1 sitter She was very pleasant today stable 2. hx of Urinary tract infection: Recently had Enterococcus urinary tract infection. Could be contributing to her current agitation. Started on vancomycin and cefepime on admission. UA and Urine culture - negative Abx discontinued 3. Acute kidney injury on chronic kidney disease stage III: resolved Baseline creatinine seems to be around 1.3, discharged with creatinine of 1.3, creatinine on admission is 3.7. Continue gentle hydration Creatinine back to baseline CT of abdomen and pelvis obtained IMPRESSION: 1. Bilateral nephrolithiasis. No ureteral calculi or hydronephrosis. Mild bladder wall thickening which could be correlated with urinalysis. 2. No bowel obstruction. No bowel wall thickening identified on unenhanced exam. Nephrology consulted. Avoid nephrotoxic agents. Holding lisinopril. Diabetes Not on medications. Most recent hemoglobin A1c 6.7 Continue monitor blood sugar Hypertension: BP started to elevate Continue metoprolol succinate. Lisinopril resumed Hypomagnesemia Mg 1.4 today Mg replaced Continue monitor History of gout: Continue allopurinol Gastroesophageal reflux disease: Continue omeprazole. History of hypothyroidism: Continue Synthroid. History of depression and anxiety: On Lexapro. History of paroxysmal atrial tachycardia: On Toprol-XL. Deep venous thrombosis prophylaxis: Place her on heparin subcutaneously. DISPOSITION: Plan to discharge home with son tomorrow Total Time Total Time Spent Total Time Spent (In Minutes): 35 minutes Discharge Plan Discharge Items Patient Disposition: Home - Self-Care Reason For Visit: URINARY SYMPTOMS, CONFUSION Discharge Diagnosis: AMS (altered mental status): Acute on chronic renal failure: CKD (chronic kidney disease) stage 3, GFR 30-59 ml/min: Agitation: Alzheimer dementia Hx of Urinary tract infection: Acute kidney injury on chronic kidney disease stage III: resolved Diabetes Hypertension: Hypomagnesemia Activity: Resume your previous activity Non-emergency contact: Primary Care Provider Call non-emergency contact if: you have any medication questions Follow-up/Referrals: Jeff Good, [Primary Care Provider] - (Date & Time 05/16/2022 2:00 PM Provider Price Anne III, MD Department [facility] ) Sondra Moreland PA [Physician Polysomnography Technician] - (Date & Time 06/28/2022 3:30 PM Provider Sondra Moreland PA-C Department Nephrology, [facility] ) Diet: Carb Consistent or DM2 Addtl Attending Provider Instructions: Follow up with your primary care provider 05/16/2022 @ 2:00 PM Price Anne III, MD Department [facility] Follow up with nephrology 06/28/2022 @3:30 PM Provider Sondra Moreland PA-C Department Nephrology, [facility] Follow up with outpatient urology for the non obstructive nephrolithiasis ([place]). your provider will place for the referral. Check BMP in 1 week to monitor your renal function ( your provider will order it) Check Magnesium in 1 week ( your provider will order it) Fall precaution Seek medical attention if symptoms reoccur Case management will contact office of aging on Saturday to check what leandro of services she will benefit from Pending Studies at Discharge: No Stand-Alone Forms: My [facility] wooju, Smoking Cessation Medications and DC Order Prescriptions: New magnesium oxide 400 mg magnesium tablet 400 mg PO DAILY Qty: 30 0RF Continued metoprolol succinate 50 mg tablet extended release 24 hr 50 mg PO QAM omeprazole 40 mg capsule,delayed release(DR/EC) 40 mg PO BID folic acid 1 mg tablet 1 mg PO QAM allopurinol 300 mg tablet 300 mg PO HS lisinopril 5 mg tablet 5 mg PO QAM acetaminophen [Tylenol Extra Strength] 500 mg Tablet 500 - 1,000 mg PO DIRECTED PRN (Reason: PAIN/FEVER) levothyroxine 75 mcg tablet 75 mcg PO QAM furosemide 20 mg tablet 10 mg PO DAILY PRN (Reason: Edema) Vicks DayQuil Cold-Flu Relief 5-10-325 mg Capsule 1 cap PO DIRECTED PRN (Reason: COLD/CONGESTION SYMPTOMS) Sheila-[facility] Plus Sinus-Cough 5-10-325 mg Capsule 1 cap PO DIRECTED PRN (Reason: COLD/CONGESTION SYMPTOMS) Women's 50 Plus Multivitamin 400 mcg-500 mg calcium-20 mcg Tablet 1 tab PO DAILY loratadine 10 mg Tablet 10 mg PO DAILY PRN (Reason: Allergy Symptoms) escitalopram oxalate 10 mg tablet 10 mg PO QPM melatonin 10 mg Tablet 10 mg PO HS PRN (Reason: Insomnia) Discharge Orders: Discharge Order (Routine); Ordered 05/12/22 Ordered By: Ida Seymour Admission Data Admit Date/Time: 05/06/22 02:02 Attending Provider: Ida Seymour Admit Provider: Richard Monique Primary Care Provider: Jeff Good Other Providers: Richard Monique Other Interventions: Discharge Summary Assessment (RN) Last Done: 05/12/22 15:19
== END 2022-05-12 15:52 | disposition home or self-care (01) | DRG 682 ==
LOC: ED 21:41 → EDINP 05-06 02:02 → SUATTDRO 05-06 02:02 → 2N 05-07 05:00
DX: G30.9 Alzheimer's disease, unspecified; M10.9 Gout, unspecified; E78.5 Hyperlipidemia, unspecified; E03.9 Hypothyroidism, unspecified; E83.42 Hypomagnesemia; I12.9 Hypertensive chronic kidney disease with stage 1 through stage 4 chronic kidney disease, or unspecified chronic kidney disease; N39.0 Urinary tract infection, site not specified; Z79.890 Hormone replacement therapy; Z88.1 Allergy status to other antibiotic agents; F02.80 Dementia in other diseases classified elsewhere, unspecified severity, without behavioral disturbance, psychotic disturbance, mood disturbance, and anxiety; G93.41 Metabolic encephalopathy; E11.22 Type 2 diabetes mellitus with diabetic chronic kidney disease; E87.2 Acidosis; R41.0 Disorientation, unspecified; N18.30 Chronic kidney disease, stage 3 unspecified; N17.9 Acute kidney failure, unspecified; Z88.5 Allergy status to narcotic agent

== ENCOUNTER 2022-05-17 15:15 | Inpatient (IN) ==
--- NOTE | 2022-05-17 15:32 | Emergency Department Note ---
Impression & Plan TENNILLE (acute kidney injury), Dehydration ED Provider Note NAME: MARTITA SMITH AGE: 89 SEX: F : 1930 ARRIVES VIA: Ambulance INFORMANT: [Patient][, ] ED PROVIDER(S): [Mil Pillai MD] Chief Complaint: Abnormal labs HPI: Patient presents with son at bedside he relates that they were called about abnormal kidney function labs. The patient reportedly had a recent admission and discharge for a UTI and had completed a course of antibiotics. The patient's initial admission creatinine was approximately 3 but was in the ones at discharge per the son. They did get routine blood work yesterday and were c alled about creatinine of greater than 3. Patient has been urinating and no blood in the urine per son at bedside. She has been complaining of some right- sided abdominal pain. No nausea vomiting or fevers. No recent falls or trauma that he is aware of. Patient son at bedside is with whom the patient lives. Patient is not taking the pain and currently does not want anything. Patient finished the course of antibiotics. ROS: See HPI for pertinent positives and negatives. A total of 10 systems were reviewed and otherwise negative. Past medical history: See below Surgical history: See below Social history: See below Physical Exam: GENERAL: NAD, wearing a mask, non-toxic. EYE EXAM: Normal conjunctiva. PERRL, no anisocoria and EOM's grossly intact w/o pain. Oropharynx: Dry mucous membranes, dentition NECK: Supple, no nuchal rigidity, no adenopathy, non-tender. No signs of meningismus. FROM of the neck with good chin to chest and neck extension. No stridor. LUNGS: Clear to auscultation. Normal chest wall mechanics. HEART: NSR, no MRG. ABDOMEN: Abdomen soft, right lower quadrant pain, faint bruise, lidocaine patch in place. nNormo-active bowel sounds, no masses, no rebound or guarding. BACK: No CVA TTP. SKIN: No rashes and no bruising. UPPER EXTREMITIES: Upper extremities are grossly normal. LOWER EXTREMITIES: Grossly normal, no edema. NEURO EXAM: A&O x3, cranial nerves II-XII grossly intact, normal speech, moves all 4 extremities. Differential diagnoses: Appendicitis, ovarian cyst, ovarian torsion, ectopic , TOA, PID, infections, diverticulitis, UTI, obstruction, mesenteric ischemia, aortic pathology, inflammatory bowel disease, renal colic, PUD, pancreatitis, biliary pathology, hernia, volvulus, constipation, as well as other pathologies. Course: Patient was seen and evaluated the bedside. Full history physical exam was performed. EKG interpreted by me Sinus with first-degree AV block, rate of 63, Plon PA, normal QRS, normal axis. Imaging Studies: See Below Cardiac monitoring: An order was placed for continuous cardiac monitoring. The monitor shows a rate of 72 with sinus rhythm. MDM: Patient blood count shows normal white count with hemoglobin 11 mild thrombocytosis 46 patient does have TENNILLE with a creatinine 3.5 from creat 1.1 given the patient's TENNILLE I did speak with the on-call hospitalist and the patient was admitted by Dr. Leyva. Patient CT showed no ureteral stones or hydro-. Mild bladder wall thickening. UA is pending. 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 CKD (chronic kidney disease) stage 3, GFR 30-59 ml/min Dementia Diverticulitis Goals of care, counseling/discussion Hypertension Hypothyroidism Recent urinary tract infection Senile degeneration of brain Family History Other Family history non-contributory Social History Smoking Status: Unknown if ever smoked Tobacco Type: Cigarettes Second Hand Exposure: No; Hx Alcohol Use: No Hx Substance Use: No Preferred Language: Vietnamese Communication Ability: Effective Hearing Ability: Hard of Hearing [employer] Marker Required: No Beliefs That Will Affect Care: None marital status: / Current Living Situation: Family Current Living Situation Comment: Son current occupational status: retired Other Information That Helps Us Care for You: No Feels Safe at Home: Yes Assistive Devices: Wheelchair Allergies Allergies Allergy/AdvReac Type Severity Reaction Status Date / Time amoxicillin Allergy ITCHING Unverified 05/17/22 17:34 mirtazapine AdvReac Intermediate Increased Verified 05/17/22 17:34 Anxiety morphine AdvReac Intermediate NAUSEA Verified 05/17/22 17:34 oxycodone AdvReac Intermediate GI SYMPTOMS Verified 05/17/22 17:34 Home Meds Home Medications Medication Instructions Recorded Confirmed allopurinol 300 mg tablet 300 mg PO HS 03/14/19 05/17/22 folic acid 1 mg tablet 1 mg PO QAM 03/14/19 05/17/22 lisinopril 5 mg tablet 5 mg PO QAM 03/14/19 05/17/22 metoprolol succinate 50 mg 50 mg PO QAM 03/14/19 05/17/22 tablet,extended release 24 hr omeprazole 40 mg capsule,delayed 40 mg PO BID 03/14/19 05/17/22 release acetaminophen 500 mg tablet 500 - 1,000 mg PO DIRECTED PRN 12/29/21 05/17/22 (Tylenol Extra Strength) PAIN/FEVER furosemide 20 mg tablet 10 mg PO DAILY PRN Edema 12/29/21 05/17/22 levothyroxine 75 mcg tablet 75 mcg PO QAM 12/29/21 05/17/22 pwwistyo-ugx-iarae ac 400 1 tab PO DAILY 03/14/22 05/17/22 mcg-calcium carb 500 mg-vit K1 20 mcg tablet (Women's 50 Plus Multivitamin) phenylephrine 5 1 cap PO DIRECTED PRN 03/14/22 05/17/22 mg-dextromethorphan 10 COLD/CONGESTION SYMPTOMS mg-acetaminophen 325 mg capsule ([place] Plus Sinus-Cough) phenylephrine 5 1 cap PO DIRECTED PRN 03/14/22 05/17/22 mg-dextromethorphan 10 COLD/CONGESTION SYMPTOMS mg-acetaminophen 325 mg capsule (Vicks DayQuil Cold and Flu Relief) escitalopram oxalate 10 mg tablet 10 mg PO QPM 04/28/22 05/17/22 loratadine 10 mg tablet 10 mg PO DAILY PRN Allergy Symptoms 04/28/22 05/17/22 melatonin 10 mg tablet 10 mg PO HS PRN Insomnia 04/28/22 05/17/22 olanzapine 2.5 mg tablet (Zyprexa) 0 mg PO DIRECTED PRN Anxiety 05/17/22 05/17/22 Previous Rx's Medication Instructions Recorded magnesium oxide 400 mg PO DAILY #30 tabs 05/12/22 Results & Data (ED) Vital Signs Vital Signs - 24 hr 05/17/22 15:27 05/17/22 17:24 Temperature 36.8 C Temperature Source Oral Pulse Rate 70 Pulse Rate [Apical] 65 Respiratory Rate 18 18 Respiratory Effort / Characteristics Non-Labored Spontaneous Non-Labored Spontaneous Respiratory Depth Normal Normal Blood Pressure 102/56 L Blood Pressure [Right Arm] 121/51 L Blood Pressure Mean 71 Blood Pressure Mean [Right Arm] 74 Pulse Oximetry 96 98 Oxygen Delivery Method Room Air Room Air Sepsis Recent Fever Within 48 Hours No Sepsis New/Unexplained Change in Mental Status No Sepsis Action Taken by Nursing No Action Required Home Medications Current Medication List: was personally reviewed by me Laboratory Data Attestation: I reviewed the patient's lab results. Result diagrams: 05/18/22 08:15 05/18/22 08:15 Lab Results 05/17/22 05/17/22 05/17/22 Range/Units 15:30 15:30 15:30 WBC 7.90 (4.8-10.8) K/ul RBC 3.56 L (3.93-5.22) M/uL Hgb 11.3 L (12.0-16.0) g/dl Hct 35.1 (34.1-44.9) % MCV 98.6 (80.0-100.0) fL MCH 31.7 (25.0-34.0) pg MCHC 32.2 (32.0-36.0) g/dL RDW Std Deviation 53.7 H (36.4-46.3) fL RDW Coeff of Mis 14.7 H (11.5-14.5) % Plt Count 486 H (130-400) K/uL MPV 10.8 (9.4-12.3) fL Immature Gran % (Auto) 0.4 % Neut % (Auto) 60.9 % Lymph % (Auto) 26.1 % [place] % (Auto) 6.3 % Eos % (Auto) 5.3 % Baso % (Auto) 1.0 % Neut # (Auto) 4.81 (1.4-6.5) K/uL Lymph # (Auto) 2.06 (1.2-3.4) K/uL [place] # (Auto) 0.50 (0.24-0.82) K/uL Eos # (Auto) 0.42 (0-0.50) K/uL Baso # (Auto) 0.08 (0-0.2) K/uL Immature Gran # (Auto) 0.03 H (0.00-0.02) K/uL Sodium 138 (136-145) mmol/L Potassium 4.4 (3.5-5.1) mmol/L Chloride 105 (98-107) mmol/L Carbon Dioxide 22 (21-32) mmol/L Anion Gap 11 (3-11) BUN 74 H (6-23) mg/dl Creatinine 3.58 H (0.6-1.2) mg/dl Est Cr Clr Drug Dosing 8.0 ml/min Est GFR ( Amer) 12.4 ml/min Est GFR (Non-Af Amer) 10.7 ml/min BUN/Creatinine Ratio 20.7 H (10-20) Glucose 135 H (70-99(Fasting)) mg/dl Calcium 10.0 (8.5-10.1) mg/dl Total Bilirubin 0.3 (0.2-1.0) mg/dl AST 13 (13-39) U/L ALT 12 (7-52) U/L Alkaline Phosphatase 89 (34-104) U/L Total Creatine Kinase 58 (26-192) U/L Total Protein 7.2 (6.0-8.3) gm/dl Albumin 4.0 (3.4-5.0) gm/dl Globulin 3.2 (2.5-4.0) gm/dl Albumin/Globulin Ratio 1.3 (0.9-2) TSH 3.790 (0.300-4.500) uIu/ml SARS-CoV-2, RNA, NAAT (NEGATIVE) 05/17/22 Range/Units 17:25 WBC (4.8-10.8) K/ul RBC (3.93-5.22) M/uL Hgb (12.0-16.0) g/dl Hct (34.1-44.9) % MCV (80.0-100.0) fL MCH (25.0-34.0) pg MCHC (32.0-36.0) g/dL RDW Std Deviation (36.4-46.3) fL RDW Coeff of Mis (11.5-14.5) % Plt Count (130-400) K/uL MPV (9.4-12.3) fL Immature Gran % (Auto) % Neut % (Auto) % Lymph % (Auto) % [place] % (Auto) % Eos % (Auto) % Baso % (Auto) % Neut # (Auto) (1.4-6.5) K/uL Lymph # (Auto) (1.2-3.4) K/uL [place] # (Auto) (0.24-0.82) K/uL Eos # (Auto) (0-0.50) K/uL Baso # (Auto) (0-0.2) K/uL Immature Gran # (Auto) (0.00-0.02) K/uL Sodium (136-145) mmol/L Potassium (3.5-5.1) mmol/L Chloride (98-107) mmol/L Carbon Dioxide (21-32) mmol/L Anion Gap (3-11) BUN (6-23) mg/dl Creatinine (0.6-1.2) mg/dl Est Cr Clr Drug Dosing ml/min Est GFR ( Amer) ml/min Est GFR (Non-Af Amer) ml/min BUN/Creatinine Ratio (10-20) Glucose (70-99(Fasting)) mg/dl Calcium (8.5-10.1) mg/dl Total Bilirubin (0.2-1.0) mg/dl AST (13-39) U/L ALT (7-52) U/L Alkaline Phosphatase (34-104) U/L Total Creatine Kinase (26-192) U/L Total Protein (6.0-8.3) gm/dl Albumin (3.4-5.0) gm/dl Globulin (2.5-4.0) gm/dl Albumin/Globulin Ratio (0.9-2) TSH (0.300-4.500) uIu/ml SARS-CoV-2, RNA, NAAT NEGATIVE (NEGATIVE) Administered Medications Allopurinol (Allopurinol 300 Mg Tab) 300 mg PO HS SARAN Stop: 06/16/22 22:17 Last Admin: 05/17/22 23:51 Dose: Not Given Documented By: Escitalopram Oxalate (Escitalopram Oxalate 10 Mg Tab) 10 mg PO QPM SARAN Stop: 06/16/22 22:17 Last Admin: 05/17/22 23:51 Dose: Not Given Documented By: Folic Acid (Folic Acid 1 Mg Tab) 1 mg PO QAM SARAN Stop: 06/17/22 08:59 Last Admin: 05/18/22 08:30 Dose: Not Given Documented By: TARI Heparin Sodium (Porcine) (Heparin Sod 5,000 Unit/0.5 Ml Vial) 5,000 units SQ Q 12 SARAN Stop: 06/16/22 20:59 Last Admin: 05/18/22 08:30 Dose: Not Given Documented By: Admin: 05/18/22 00:50 Dose: 5,000 units Documented By: HENRIQUE Sodium Chloride (Nss 1000ml) 1,000 mls @ 80 mls/hr IV .[id number] SARAN Stop: 06/16/22 22:17 Last Admin: 05/17/22 22:44 Dose: 80 mls/hr Documented By: HENRIQUE Levothyroxine Sodium (Levothyroxine Sodium 75 Mcg Tablet) 75 mcg PO DAILYBB SARAN Stop: 06/17/22 06:29 Last Admin: 05/18/22 06:17 Dose: Not Given Documented By: Magnesium Oxide (Magnesium Oxide 400 Mg Tab) 400 mg PO DAILY SARAN Stop: 06/17/22 08:59 Last Admin: 05/18/22 08:30 Dose: Not Given Documented By: TARI Metoprolol Succinate (Metoprolol Succ 50mg Ext Rel Tab) 50 mg PO QAM SARAN Stop: 06/17/22 08:59 Last Admin: 05/18/22 08:30 Dose: Not Given Documented By: TARI Multivitamins/Minerals (Cerovite Adv Formula Tab) 1 tab PO DAILY SARAN Stop: 06/17/22 08:59 Last Admin: 05/18/22 08:30 Dose: Not Given Documented By: TARI Pantoprazole Sodium (Pantoprazole 40 Mg Tab) 40 mg PO BID SARAN Stop: 06/16/22 22:17 Last Admin: 05/18/22 08:30 Dose: Not Given Documented By: Admin: 05/17/22 23:51 Dose: Not Given Documented By: Discontinued Medications Haloperidol Lactate (Haloperidol Lactate 5 Mg/Ml 1 Ml Vial) 2 mg IM NOW STA Stop: 05/17/22 22:20 Last Admin: 05/17/22 22:25 Dose: 2 mg Documented By: LON Sodium Chloride (Nss) 500 mls @ 999 mls/hr IV .Q31M SARAN Stop: 05/17/22 16:15 Last Infusion: 05/17/22 17:01 Dose: 0 mls/hr Documented By: Admin: 05/17/22 15:55 Dose: 999 mls/hr Documented By: LORI Sodium Chloride (Nss) 500 mls @ 75 mls/hr IV .[id number] SARAN Stop: 05/18/22 20:39 Last Infusion: 05/18/22 00:44 Dose: 0 mls/hr Documented By: Admin: 05/17/22 18:45 Dose: 75 mls/hr Documented By: SHREYA Olanzapine (Olanzapine 10 Mg/2.1 Ml Sdv) 2.5 mg IM NOW STA Stop: 05/17/22 22:44 Last Admin: 05/17/22 22:55 Dose: 2.5 mg Documented By: HENRIQUE Olanzapine (Olanzapine 10 Mg/2.1 Ml Sdv) Confirm Administered Dose 10 mg IM .STK-MED ONE Stop: 05/17/22 22:52 Last Admin: 05/18/22 03:15 Dose: Not Given Documented By: HENRIQUE Imaging Data Radiologist's Impression: Abdomen/Pelvis CT 05/17/22 15:[address] WITHOUT CONTRAST CT DOSE: 470.05 mGycm HISTORY: Right lower quadrant abdominal pain. Acute renal failure. TECHNIQUE: Multiaxial CT images of the abdomen and pelvis were performed without contrast. A dose lowering technique was utilized adhering to the principles of ALARA. COMPARISON STUDY: Abdomen and pelvis CT 05/06/2022. FINDINGS: Mild motion artifact. Mild interstitial thickening at the lung bases which is likely chronic. This remains unchanged. No pneumoperitoneum. No pneumatosis. 1 cm sclerotic focus within the right acetabulum remains unchanged. This favors a bone island. Degenerative changes again noted within the lumbar spine. The unenhanced liver, spleen, right adrenal gland, and pancreas are unremarkable. There is a stable 1.5 cm left adrenal gland nodule. This favors a benign adenoma. Gastric wall thickening is likely due to underdistention. This remains unchanged. No retroperitoneal lymphadenopathy. Calcified plaque within the normal caliber abdominal aorta. There is a left retroaortic renal vein. Stable bilateral nephrolithiasis. Dominant stone within the lower pole the left kidney measures 7 mm. There is a 2.5 cm hypodense lesion within the lower pole o f the right kidney which is unchanged. This favors a cyst. There is an indeterminate 7 mm exophytic lesion within the left kidney on image 167. This is similar to the prior studies and therefore also favors a cyst. Mild bilateral perinephric edema and mild to moderate bilateral cortical renal scarri ng/thinning remains unchanged. No ureteral stones. No hydronephrosis. The small fat-containing right lower quadrant abdominal wall hernia and a small fat- containing right inguinal hernia remain unchanged. There is mild bladder wall thickening which is stable. Suboptimal evaluation for bowel pathology due to the lack of intravenous and oral contrast. However, there is no definite bowel wall thickening or obstruction. Colonic diverticulosis. No evidence for acute diverticulitis. The appendix is not identified. Moderate well-formed stool seen throughout the colon. IMPRESSION: 1. Stable bilateral nephrolithiasis. No ureteral stones. No hydronephrosis. 2. Mild bladder wall thickening, unchanged. This could be chronic. Recommend correlation with urinalysis to exclude a cystitis. . 3. No definite bowel wall thickening or obstruction. 4. Colonic diverticulosis. No evidence for acute diverticulitis. 5. Moderate well-formed stool seen within the colon. 6. Additional findings as described above. ACT 112: Negative or not required by law. Electronically signed by: Alan Hernandez M.D. 05/17/2022 4:50 PM Chest X-Ray 05/17/22 15:45 XR chest 1V portable CLINICAL HISTORY: weakness COMPARISON STUDY: Chest CT December 29, 2021. Chest radiograph April 25, 2022. FINDINGS: Lung volumes are mildly diminished. No pneumothorax or pleural effusion is noted. There is mild interstitial thickening. Cardiomediastinal silhouette is stable. No lobar consolidation is present. Postoperative findings within the cervical spine are incidentally noted. IMPRESSION: Mild interstitial thickening. This favors mild interstitial pulmonary edema. ACT 112: Negative or not required by law. Electronically signed by: Andrés Caraballo M.D. 05/17/2022 4:20 PM Discharge Plan Visit Data Chief Complaint: Abnormal Labs/Diagnostic Testing Stated Complaint: irregular labs ED Provider: Mil Pillai Discharge Problem: TENNILLE (acute kidney injury), Dehydration Patient Disposition: Admitted As Inpatient Discharge Instructions Interventions: ED Discharge Assessment Last Done: 05/17/22 22:13
[2022-05-17] MEDS ORDERED: SODIUM CHLORIDE 0.9% 500 ML IV SCH ×2 (15:45→18:00)
[2022-05-17 16:01] LABS: Basophils # (auto) 0.08 K/uL (0-0.2); Eosinophils # (auto) 0.42 K/uL (0-0.50); Eosinophils % (auto) 5.3 %; Hematocrit (blood only) 35.1 % (34.1-44.9); Hemoglobin 11.3 g/dl (12.0-16.0); Immature Granulocytes # (auto) 0.03 K/uL (0.00-0.02); Immature Granulocytes % (auto) 0.4 %; Lymphocytes # (auto) 2.06 K/uL (1.2-3.4); Lymphocytes % (auto) 26.1 %; Mean Corpuscular Hemoglobin 31.7 pg (25.0-34.0); Mean Corpuscular Hgb Conc 32.2 g/dL (32.0-36.0); Mean Corpuscular Volume 98.6 fL (80.0-100.0); Mean Platelet Volume 10.8 fL (9.4-12.3); Monocytes % (auto) 6.3 %; Neutrophils # (auto) 4.81 K/uL (1.4-6.5); Neutrophils % (auto) 60.9 %; Platelet Count 486 K/uL (130-400); RDW Coefficient of Variation 14.7 % (11.5-14.5); RDW Standard Deviation 53.7 fL (36.4-46.3); Red Blood Count 3.56 M/uL (3.93-5.22)
[2022-05-17 16:20] LABS: Albumin Globulin Ratio 1.3 (0.9-2); BUN Creatinine Ratio 20.7 (10-20); Bilirubin,Total 0.3 mg/dl (0.2-1.0); Est GFR (African American) 12.4 ml/min; Est GFR (Non-African American) 10.7 ml/min; Globulin 3.2 gm/dl (2.5-4.0); Potassium 4.4 mmol/L (3.5-5.1); Total Protein 7.2 gm/dl (6.0-8.3)
--- NOTE | 2022-05-17 16:22 | XRay Report ---
XR chest 1V portable CLINICAL HISTORY: weakness COMPARISON STUDY: Chest CT December 29, 2021. Chest radiograph April 25, 2022. FINDINGS: Lung volumes are mildly diminished. No pneumothorax or pleural effusion is noted. There is mild interstitial thickening. Cardiomediastinal silhouette is stable. No lobar consolidation is prese nt. Postoperative findings within the cervical spine are incidentally noted. IMPRESSION: Mild interstitial thickening. This favors mild interstitial pulmonary edema. ACT 112: Negative or not required by law. Electronically signed by: Andrés Caraballo M.D. 05/17/2022 4:20 PM
--- NOTE | 2022-05-17 16:53 | CT Scan Report ---
ABDOMEN AND PELVIS CT WITHOUT CONTRAST CT DOSE: 470.05 mGycm HISTORY: Right lower quadrant abdominal pain. Acute renal failure. TECHNIQUE: Multiaxial CT images of the abdomen and pelvis were performed without contrast. A dose lo wering technique was utilized adhering to the principles of ALARA. COMPARISON STUDY: Abdomen and pelvis CT 05/06/2022. FINDINGS: Mild motion artifact. Mild interstitial thickening at the lung bases which is likely chroni c. This remains unchanged. No pneumoperitoneum. No pneumatosis. 1 cm sclerotic focus within the right acetabulum remains unchanged. This favors a bone island. Degenerative changes again noted within the lumbar spine. The unenhanced liver, spleen, right adrenal gland, and pancreas are unremarkable. Ther e is a stable 1.5 cm left adrenal gland nodule. This favors a benign adenoma. Gastric wall thickening is likely due to underdistention. This remains unchanged. No retroperitoneal lymphadenopathy. Calcif ied plaque within the normal caliber abdominal aorta. There is a left retroaortic renal vein. Stable bilateral nephrolithiasis. Dominant stone within the lower pole the left kidney measures 7 mm. There is a 2.5 cm hypodense lesion within the lower pole of the right kidney which is unchanged. This favor s a cyst. There is an indeterminate 7 mm exophytic lesion within the left kidney on image 167. This i s similar to the prior studies and therefore also favors a cyst. Mild bilateral perinephric edema and mild to moderate bilateral cortical renal scarring/thinning remains unchanged. No ureteral stones. N o hydronephrosis. The small fat-containing right lower quadrant abdominal wall hernia and a small fat -containing right inguinal hernia remain unchanged. There is mild bladder wall thickening which is st able. Suboptimal evaluation for bowel pathology due to the lack of intravenous and oral contrast. How ever, there is no definite bowel wall thickening or obstruction. Colonic diverticulosis. No evidence for acute diverticulitis. The appendix is not identified. Moderate well-formed stool seen throughout the colon. IMPRESSION: 1. Stable bilateral nephrolithiasis. No ureteral stones. No hydronephrosis. 2. Mild bladder wall thickening, unchanged. This could be chronic. Recommend correlation with urinaly sis to exclude a cystitis. . 3. No definite bowel wall thickening or obstruction. 4. Colonic diverticulosis. No evidence for acute diverticulitis. 5. Moderate well-formed stool seen within the colon. 6. Additional findings as described above. ACT 112: Negative or not required by law. Electronically signed by: Alan Hernandez M.D. 05/17/2022 4:50 PM
--- NOTE | 2022-05-17 17:28 | History & Physical Report ---
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 Pt had decreased appetite and reduced fluid intake at home since 6 days per son. Baseline creatine around 1.2- 1.5, received 1 L NSS in ED. Pt remains noncoversive at bedside exam. She is now presented to the [facility] as her routine labs returned with an elevated creatinine level of 3.58; baseline is 1.19 and some right sided abdominal pain. Pt goal to return home with son. Acute on Chronic renal failure: -Patient baseline creat 1.19--> now 3.58 BUN 74 -Gentle fluid challenge with 0.9NS IV @ 80mL/hour; monitor for overload. -Recheck BMP in AM. If no signs of improvement and patient family continues to want aggressive measures, consider Nephro consult. Senile Degeneration of the brain: -with behavioral disturbance. -At baseline requires all ADL needs to be anticipated and met by patients son who lives with her. -Behaviors have become more challenging over time with less cooperation and more physical with patient swinging with care needs. -Pt son states that her behavioral disturbances have become harder to witness as her cooperation levels are more unpredictable. -Talked with the patients son Cande on the phone at [phone]. He reports that her fluid intake and overall appetite has declined over the past 6 days since she has been home. -Newly on Zyprexa at home PRN for agitation behavior; consider scheduling this and switching to SL if swallowing is an issue. -Speech eval order placed as patient has poor dentition and decreased oral intake, including medications. May be helpful for goals of care family meeting to have this information to assist with feeding tube conversation if necessary. -FAST score: all of 6 and up to and including 7b. Recent UTI: -Recent admit from 04/29 to 05/04 for Enterococcus urinary tract infection. Could be contributing to her current agitation. Completed Cefepime and Vanco -UA pending -Gentle rehydration; monitor. -unresolved UTI may be contributing to delirium Goals of care: -Palliative Performance Scale: 30% -I did discuss code status with the patient's son and he does understand that her condition has been worsening. 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 -I did ask him what he thinks his mother would state her wishes were regarding end of life decisions; artificial nutrition/hydration, dialysis, code status, etc. He states that they have never discussed these matters before. -Zari and Cindy are the patients daughters who also live in town and Denis is receptive to a family meeting to discuss overall goals of care based on the patients progress over the next few days. H/O depression: -on Lexapro H/O paroxysmal atrial tachycardia: -On Toprol XL Dispo: Code Status: FC; however, patient son indicated he would be willing discuss DNR/DNI if not signs of improvement over next 72 hours. PCP: Dr. Preciado Nect of Kin: Denis, son: [phone] VTE prophylaxis: Heparin SQ Goal to return home with son; however, need to consider placement for safety and worsening behavior disturbance. PT/OT eval and treat orders placed. History of Present Illness Chief Complaint: abnormal labs Primary Care Provider: Jeff Good DO This is an 89-year-old female with past medical history significant for type 2 diabetes, currently not on any medications, history of benign neoplasm of adrenal gland, hyperlipidemia, hypothyroidism, hypertension, paroxysmal atrial tachycardia, GERD, chronic kidney disease stage III, history of acoustic neuroma, history of mild dementia with Alzheimer disease, history of bladder cancer, depression, generalized anxiety disorder, was recently in the hospital for Enterococcus, resistant to penicillin and was treated with daptomycin. She had a recent admission from April 29-May 04 for a complicated UTI s/p abx completion. She is now presented to the [facility] as her routine labs returned with an elevated creatinine level of 3.58; baseline is 1.19 and some right sided abdominal pain. Pt son reports decreased fluid intake. She received a liter of NS in the ED. CXR and abdominal CT completed. Pt not participating in ROS and is unreliable for such. All information obtained from patient son Densi. Please see A/P for further details. Allergies Allergy/AdvReac Type Severity Reaction Status Date / Time amoxicillin Allergy ITCHING Unverified 05/17/22 17:34 mirtazapine AdvReac Intermediate Increased Verified 05/17/22 17:34 Anxiety morphine AdvReac Intermediate NAUSEA Verified 05/17/22 17:34 oxycodone AdvReac Intermediate GI SYMPTOMS Verified 05/17/22 17:34 Home Medications Medication Instructions Recorded Confirmed Type allopurinol 300 mg tablet 300 mg PO HS 03/14/19 05/17/22 History folic acid 1 mg tablet 1 mg PO QAM 03/14/19 05/17/22 History lisinopril 5 mg tablet 5 mg PO QAM 03/14/19 05/17/22 History metoprolol succinate 50 mg 50 mg PO QAM 03/14/19 05/17/22 History tablet,extended release 24 hr omeprazole 40 mg capsule,delayed 40 mg PO BID 03/14/19 05/17/22 History release acetaminophen 500 mg tablet 500 - 1,000 mg PO DIRECTED PRN 12/29/21 05/17/22 History (Tylenol Extra Strength) PAIN/FEVER furosemide 20 mg tablet 10 mg PO DAILY PRN Edema 12/29/21 05/17/22 History levothyroxine 75 mcg tablet 75 mcg PO QAM 12/29/21 05/17/22 History dyoqanve-vpb-kasrq ac 400 1 tab PO DAILY 03/14/22 05/17/22 History mcg-calcium carb 500 mg-vit K1 20 mcg tablet (Women's 50 Plus Multivitamin) phenylephrine 5 1 cap PO DIRECTED PRN 03/14/22 05/17/22 History mg-dextromethorphan 10 COLD/CONGESTION SYMPTOMS mg-acetaminophen 325 mg capsule ([place]ila-[place] Plus Sinus-Cough) phenylephrine 5 1 cap PO DIRECTED PRN 03/14/22 05/17/22 History mg-dextromethorphan 10 COLD/CONGESTION SYMPTOMS mg-acetaminophen 325 mg capsule (Vicks DayQuil Cold and Flu Relief) escitalopram oxalate 10 mg tablet 10 mg PO QPM 04/28/22 05/17/22 History loratadine 10 mg tablet 10 mg PO DAILY PRN Allergy Symptoms 04/28/22 05/17/22 History melatonin 10 mg tablet 10 mg PO HS PRN Insomnia 04/28/22 05/17/22 History magnesium oxide 400 mg PO DAILY #30 tabs 05/12/22 05/17/22 Rx olanzapine 2.5 mg tablet (Zyprexa) 0 mg PO DIRECTED PRN Anxiety 05/17/22 05/17/22 History Past Med/Surg History Medical History (Updated 05/17/22 @ 18:36 by JEFF Suggs) 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 CKD (chronic kidney disease) stage 3, GFR 30-59 ml/min Dementia Diverticulitis Goals of care, counseling/discussion Hypertension Hypothyroidism Recent urinary tract infection Senile degeneration of brain Family History Other Family history non-contributory Social History Smoking Status: Former smoker Tobacco Type: Cigarettes Second Hand Exposure: No; Hx Alcohol Use: No Hx Substance Use: No Preferred Language: Somali Communication Ability: Impaired Hearing Ability: Hard of Hearing Kindergarten Teacher Required: No Beliefs That Will Affect Care: None marital status: / Current Living Situation: Family Current Living Situation Comment: son current occupational status: retired Feels Safe at Home: Yes Assistive Devices: Wheelchair Review of Systems Review of Systems: Unobtainable due to cognitive status (end stage dementia) Physical Exam Physical Exam: Neuro: AAOx1, PERRLA, HEENT: head normocephalic, moist mucus membranes CV: S1/S2, (-) M/G/R, (-) edema, cap refill < 3 seconds Resp: Lungs CTA in all mccoy anteriorly; pt would not allow posterior exam. On RA GI: Abdomen S/NT/ND, Ax4 bowel sounds, (-) CVA tenderness Musculoskeletal: pt does not follow commands Skin: (-) rashes , (-) erythema. Psych: + behavioral disturbance r/t dementia Results & Data Results & Data ([facility]) Vital Signs (Past 12 Hours) Vital Signs Temp Pulse Resp BP Pulse Ox O2 Del Method 05/17/22 15:27 36.8 C 70 18 102/56 L 96 Room Air Laboratory Results Short CBC 05/17/22 Range/Units 15:30 WBC 7.90 (4.8-10.8) K/ul Hgb 11.3 L (12.0-16.0) g/dl Hct 35.1 (34.1-44.9) % Plt Count 486 H (130-400) K/uL BMP 05/17/22 15:30 Sodium 138 Potassium 4.4 Chloride 105 Carbon Dioxide 22 BUN 74 H Creatinine 3.58 H Glucose 135 H Calcium 10.0 Cardiac Enzymes 05/17/22 Range/Units 15:30 Total Creatine Kinase 58 (26-192) U/L Liver Function 05/17/22 Range/Units 15:30 Total Bilirubin 0.3 (0.2-1.0) mg/dl AST 13 (13-39) U/L ALT 12 (7-52) U/L Alkaline Phosphatase 89 (34-104) U/L Albumin 4.0 (3.4-5.0) gm/dl Diagnostic Findings Abdomen/Pelvis CT 05/17/22 15:[address] WITHOUT CONTRAST CT DOSE: 470.05 mGycm HISTORY: Right lower quadrant abdominal pain. Acute renal failure. TECHNIQUE: Multiaxial CT images of the abdomen and pelvis were performed without contrast. A dose lowering technique was utilized adhering to the principles of ALARA. COMPARISON STUDY: Abdomen and pelvis CT 05/06/2022. FINDINGS: Mild motion artifact. Mild interstitial thickening at the lung bases which is likely chronic. This remains unchanged. No pneumoperitoneum. No pneumatosis. 1 cm sclerotic focus within the right acetabulum remains unchanged. This favors a bone island. Degenerative changes again noted within the lumbar spine. The unenhanced liver, spleen, right adrenal gland, and pancreas are unremarkable. There is a stable 1.5 cm left adrenal gland nodule. This favors a benign adenoma. Gastric wall thickening is likely due to underdistention. This remains unchanged. No retroperitoneal lymphadenopathy. Calcified plaque within the normal caliber abdominal aorta. There is a left retroaortic renal vein. Stable bilateral nephrolithiasis. Dominant stone within the lower pole the left kidney measures 7 mm. There is a 2.5 cm hypodense lesion within the lower pole of the right kidney which is unchanged. This favors a cyst. There is an indeterminate 7 mm exophytic lesion within the left kidney on image 167. This is similar to the prior studies and therefore also favors a cyst. Mild bilateral perinephric edema and mild to moderate bilateral cortical renal scarring/thinning remains unchanged. No ureteral stones. No hydronephrosis. The small fat-containing right lower quadrant abdominal wall hernia and a small fat- containing right inguinal hernia remain unchanged. There is mild bladder wall thickening which is stable. Suboptimal evaluation for bowel pathology due to the lack of intravenous and oral contrast. However, there is no definite bowel wall thickening or obstruction. Colonic diverticulosis. No evidence for acute diverticulitis. The appendix is not identified. Moderate well-formed stool seen throughout the colon. IMPRESSION: 1. Stable bilateral nephrolithiasis. No ureteral stones. No hydronephrosis. 2. Mild bladder wall thickening, unchanged. This could be chronic. Recommend correlation with urinalysis to exclude a cystitis. . 3. No definite bowel wall thickening or obstruction. 4. Colonic diverticulosis. No evidence for acute diverticulitis. 5. Moderate well-formed stool seen within the colon. 6. Additional findings as described above. ACT 112: Negative or not required by law. Electronically signed by: Alan Hernandez M.D. 05/17/2022 4:50 PM Chest X-Ray 05/17/22 15:45 XR chest 1V portable CLINICAL HISTORY: weakness COMPARISON STUDY: Chest CT December 29, 2021. Chest radiograph April 25, 2022. FINDINGS: Lung volumes are mildly diminished. No pneumothorax or pleural effusion is noted. There is mild interstitial thickening. Cardiomediastinal silhouette is stable. No lobar consolidation is present. Postoperative findings within the cervical spine are incidentally noted. IMPRESSION: Mild interstitial thickening. This favors mild interstitial pulmonary edema. ACT 112: Negative or not required by law. Electronically signed by: Andrés Caraballo M.D. 05/17/2022 4:20 PM ECG Additional Comments: NSR with first degree AVB HR 63 ANDERSON: 263ms QRS; 72 ms QTc: 423 Code Status & VTE Plan Code Status Full Code as per discussion with patient son. VTE Prophylaxis Plan VTE Prophylaxis will be ordered: Yes Supervising Physician Co-Signing Physician Notes 89 yo F w/ PMH of alzheimer's dementia, benign neoplasm of adrenal gland, CKD III, acoustic neuroma presented 05/17 to our ED d/t her OP creatinine being elevated to 3.58. Pt had decreased appetite and reduced fluid intake at home since 6 days [employer]. Baseline creatine around 1.2-1.5, received 1 L NSS in ED. Pt remains noncoversive at bedside exam. ROS n/a. Dementia likely excerbated by acute UTI. UA pending. Labs and imaging reviewed. Labs fairly at baseline, except for renal functions. TSH nl. EKG w/ no acute changes. CXR concern for mild pul edema, will send BNP, eval in am for continued ivfluid requirement. TENNILLE over CKD III, on ivf, bmp in AM, hold nephrotoxics including lasix, allopurinol. Renally adjust meds. Alzeimer's dementia: lately worsening behavior and confusion per son, pt's cognition status worsening more so lately per son, watch out for delirium, delirium precautions. Upon Exam: GENERAL: non conversive, spontaneous eye opening, on RA, NAD, couldn't assess AO. HEENT: No pallor, no icterus. NECK: No JVD, no neck masses. HEART: didn't allow RESPIRATORY SYSTEM: No accessory muscle use. No wheezing, no crackles. ABDOMEN: didn't allow, didn't look distended. CENTRAL NERVOUS SYSTEM: No facial droop. rest n/a EXTREMITIES: No edema, no erythema seen. I have seen and examined the patient and have discussed the case with the provider above. I agree with the assessment and plan as stated. (1) Abdominal pain Abdominal location: generalized Qualified Code(s): R10.84 - Generalized abdominal pain
--- NOTE | 2022-05-17 18:55 | Electrocardiogram Report ---
Test Reason : Blood Pressure : / mmHG Vent. Rate : 063 BPM Atrial Rate : 063 BPM P-R Int : 260 ms QRS Dur : 072 ms QT Int : 418 ms P-R-T Axes : 028 -01 041 degrees QTc Int : 427 ms Sinus rhythm with 1st degree A-V block Otherwise normal ECG When compared with ECG of 05-MAY-2022 23:28, Criteria for Inferior infarct are no longer Present Confirmed by Neto Mijares ([id number]) on 05/17/2022 6:55:34 PM Referred By: ED Confirmed By:Avery Mijares
[2022-05-17] MEDS ORDERED: [UNRECOGNIZED DRUG - OTHER] PO PRN (22:18)
[2022-05-17] MEDS ORDERED: PHENYLEPHRINE PO PRN ×2 (22:18)
[2022-05-17] MEDS ORDERED: ACETAMINOPHEN PO PRN ×2 (22:18)
[2022-05-17] MEDS ORDERED: LORATADINE 10 MG TAB PO PRN (22:18)
[2022-05-17] MEDS ORDERED: [UNRECOGNIZED DRUG - OTHER] PO PRN (22:18)
[2022-05-17] MEDS ORDERED: DEXTROMETHORPHAN PO PRN ×2 (22:18)
[2022-05-17] MEDS ORDERED: MELATONIN 3 MG TAB PO PRN (22:18)
[2022-05-17] MEDS ORDERED: HALOPERIDOL LACTATE 5 MG/ML 1 ML VIAL IM STA (22:19)
[2022-05-17] MEDS ORDERED: OLANZapine 10 MG/2.1 ML SDV IM STA (22:43)
[2022-05-17] MEDS: SODIUM CHLORIDE 0.9% 1000ML 1,000 ML IV SCH (22:44)
[2022-05-17] MEDS ORDERED: OLANZapine 10 MG/2.1 ML SDV IM ONE (22:51)
[2022-05-17] MEDS: ESCITALOPRAM OXALATE 10 MG TAB PO SCH (23:51)
[2022-05-17] MEDS: PANTOprazole 40 MG TAB PO SCH (23:51)
[2022-05-17] MEDS: allopurinoL 300 MG TAB PO SCH (23:51)
[2022-05-18] MEDS: HEPARIN SOD 5,000 UNIT/0.5 ML VIAL SQ SCH ×3 (00:50→23:03)
[2022-05-18] MEDS: OLANZAPINE 2.5 MG TAB PO PRN ×3 (06:13→19:45)
[2022-05-18] MEDS: LEVOTHYROXINE SODIUM 75 MCG TABLET PO SCH ×2 (06:13→06:17)
[2022-05-18] MEDS: CEROVITE ADV FORMULA TAB PO SCH (08:30)
[2022-05-18] MEDS: FOLIC ACID 1 MG TAB PO SCH (08:30)
[2022-05-18] MEDS: MAGNESIUM OXIDE 400 MG TAB PO SCH (08:30)
[2022-05-18] MEDS: METOPROLOL SUCC 50MG EXT REL TAB PO SCH (08:30)
[2022-05-18] MEDS: PANTOprazole 40 MG TAB PO SCH ×2 (08:30→19:46)
[2022-05-18 08:34] LABS: Hematocrit (blood only) 36.7 % (34.1-44.9); Hemoglobin 11.8 g/dl (12.0-16.0); Mean Corpuscular Hemoglobin 31.4 pg (25.0-34.0); Mean Corpuscular Hgb Conc 32.2 g/dL (32.0-36.0); Mean Corpuscular Volume 97.6 fL (80.0-100.0); Mean Platelet Volume 10.7 fL (9.4-12.3); Platelet Count 501 K/uL (130-400); RDW Coefficient of Variation 14.6 % (11.5-14.5); RDW Standard Deviation 53.1 fL (36.4-46.3); Red Blood Count 3.76 M/uL (3.93-5.22); White Blood Count 8.65 K/ul (4.8-10.8)
[2022-05-18 09:01] LABS: BUN Creatinine Ratio 25.1 (10-20); Calcium 9.9 mg/dl (8.5-10.1); Creatinine Clr Calc Pharmacy 13.3 ml/min; Est GFR (African American) 21.5 ml/min; Est GFR (Non-African American) 18.5 ml/min; Potassium 4.1 mmol/L (3.5-5.1)
[2022-05-18] MEDS: SODIUM CHLORIDE 0.9% 1000ML 1,000 ML IV SCH (11:19)
--- NOTE | 2022-05-18 11:32 | Hospitalist Progress Note ---
Date of Service May 18, 2022 Assessment & Plan (1) Senile degeneration of brain: (2) Abdominal pain: (3) Acute on chronic renal failure: (4) Goals of care, counseling/discussion: (5) Recent urinary tract infection: Plan 89 yo F w/ PMH of dementia, benign neoplasm of adrenal gland, CKD III, acoustic neuroma presented 05/17 to our ED d/t her OP creatinine being elevated to 3.58. Pt had decreased appetite and reduced fluid intake at home since 6 days per son. Baseline creatine around 1.2-1.5, She is now presented to the [facility] as her routine labs returned with an elevated creatinine level of 3.58; baseline is 1.19 and some right sided abdominal pain. Acute on Chronic renal failure: -Patient baseline creat 1.19 Cr was 3.58 on presentation BUN 74 Got IVF TENNILLE likely from poor oral intake. Continue IVF Cr trending down today to 2.27. Dementia At baseline requires all ADL needs to be anticipated. Per admitting provider who spoke with son, her behaviors have become more challenging over time with less cooperation and more physical with patient swinging with care needs. Per RN, patient was able to drink without problems. However, have been refusing meds Currently delirious Redirect as needed Remove restraints as soon as possible Safety precautions Gave a dose of zyprexa IM Psych consulted. Psych recommend starting zyprexa zydis 2.5mg HS. Will monitor QTc Recent UTI: -Recent admit from 04/29 to 05/04 for Enterococcus urinary tract infection. Could be contributing to her current agitation. Completed Cefepime and Vanco -UA yet to be collected -Gentle rehydration; monitor. -unresolved UTI may be contributing to delirium H/O depression: -on Lexapro H/O paroxysmal atrial tachycardia: -On Toprol XL Dispo: Code Status: FC; however, patient son had indicated to Admitting Provider he would be willing discuss DNR/DNI if not signs of improvement over next 72 hours. PCP: Dr. Preciado Nect of Kin: Denis son: [phone] VTE prophylaxis: Heparin SQ Admission and Anticipated Discharge Date Admission Date: May 17, 2022 Subjective Patient seen and examined She is agitated, confused and declined evaluation Patient is currently on soft UE restraints Review of Systems Review of Systems: Unobtainable due to cognitive status Physical Exam Physical Exam: Declined exam Results & Data Results & Data ([facility]) Vital Signs (Past 12 Hours) Vital Signs Temp Pulse Pulse Resp BP Pulse Ox O2 Del Method 05/18/22 08:16 36.3 C L 145 H 18 161/70 H 89 L Room Air 05/18/22 08:06 64 05/18/22 04:00 36.5 C 57 L 20 158/74 H 97 Room Air Laboratory Results Abnormal lab results 05/17/22 05/18/22 05/18/22 Range/Units 15:30 08:15 08:15 RBC 3.76 L (3.93-5.22) M/uL Hgb 11.8 L (12.0-16.0) g/dl RDW Std Deviation 53.1 H (36.4-46.3) fL RDW Coeff of Mis 14.6 H (11.5-14.5) % Plt Count 501 H (130-400) K/uL Chloride (98-107) mmol/L BUN 74 H (6-23) mg/dl Creatinine 3.58 H (0.6-1.2) mg/dl BUN/Creatinine Ratio 20.7 H (10-20) Glucose 135 H (70-99(Fasting)) mg/dl B-Natriuretic Peptide 151 H (0-100) pg/ml 05/18/22 Range/Units 08:15 RBC (3.93-5.22) M/uL Hgb (12.0-16.0) g/dl RDW Std Deviation (36.4-46.3) fL RDW Coeff of Mis (11.5-14.5) % Plt Count (130-400) K/uL Chloride 112 H (98-107) mmol/L BUN 57 H (6-23) mg/dl Creatinine 2.27 H D (0.6-1.2) mg/dl BUN/Creatinine Ratio 25.1 H (10-20) Glucose 122 H (70-99(Fasting)) mg/dl B-Natriuretic Peptide (0-100) pg/ml (1) Abdominal pain Abdominal location: generalized Qualified Code(s): R10.84 - Generalized abdominal pain
[2022-05-18] MEDS ORDERED: OLANZapine 10 MG/2.1 ML SDV IM STA (13:27)
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
[2022-05-18] MEDS: allopurinoL 300 MG TAB PO SCH (19:45)
[2022-05-18] MEDS: OLANZapine ZYDIS 5 MG ORALLY DIS. TAB PO SCH (19:45)
[2022-05-18] MEDS: ESCITALOPRAM OXALATE 10 MG TAB PO SCH (20:05)
[2022-05-18] MEDS ORDERED: OLANZapine ZYDIS 5 MG ORALLY DIS. TAB PO SCH (21:00)
[2022-05-19 01:39] LABS: Appearance Urine Clear (Clear); Bacteria Urine Automated Negative (Negative); Bilirubin Urine Negative (Negative); Blood Urine Trace (Negative); Color Urine Yellow; Glucose Urine UA Negative (Negative); Ketones Urine Trace (Negative); Leukocyte Esterase Urine Negative (Negative); Nitrite Urine Negative (Negative); Protein Urine 2+ (Negative); RBC Urine Automated 0-4 /hpf (0-4); Specific Gravity Urine 1.012 (1.000-1.030); Urobilinogen Urine Negative (Negative)
[2022-05-19] MEDS: LEVOTHYROXINE SODIUM 75 MCG TABLET PO SCH (06:30)
[2022-05-19] MEDS: METOPROLOL SUCC 50MG EXT REL TAB PO SCH (09:05)
[2022-05-19] MEDS: CEROVITE ADV FORMULA TAB PO SCH (09:05)
[2022-05-19] MEDS: FOLIC ACID 1 MG TAB PO SCH (09:05)
[2022-05-19] MEDS: PANTOprazole 40 MG TAB PO SCH ×2 (09:05→22:11)
[2022-05-19] MEDS: HEPARIN SOD 5,000 UNIT/0.5 ML VIAL SQ SCH ×2 (09:05→22:15)
[2022-05-19] MEDS: MAGNESIUM OXIDE 400 MG TAB PO SCH (09:05)
[2022-05-19 09:31] LABS: BUN Creatinine Ratio 23.1 (10-20); Calcium 10.2 mg/dl (8.5-10.1); Creatinine Clr Calc Pharmacy 22.5 ml/min; Est GFR (African American) 40.6 ml/min; Potassium 4.5 mmol/L (3.5-5.1)
--- NOTE | 2022-05-19 12:03 | Hospitalist Progress Note ---
Date of Service May 19, 2022 Assessment & Plan (1) Senile degeneration of brain: (2) Abdominal pain: (3) Acute on chronic renal failure: (4) Goals of care, counseling/discussion: (5) Recent urinary tract infection: Plan 89 yo F w/ PMH of dementia, benign neoplasm of adrenal gland, CKD III, acoustic neuroma presented 05/17 to our ED d/t her OP creatinine being elevated to 3.58. Pt had decreased appetite and reduced fluid intake at home since 6 days per son. Baseline creatine around 1.2-1.5, She is now presented to the [facility] as her routine labs returned with an elevated creatinine level of 3.58; baseline is 1.19 and some right sided abdominal pain. Acute on Chronic renal failure: -Patient baseline creat 1.19 Cr was 3.58 on presentation BUN 74 TENNILLE likely from poor oral intake. Patient pulled IV line off today Cr trending down today to 1.3 Continue to encourage po intake. Dementia At baseline requires all ADL needs to be anticipated. Per admitting provider who spoke with son, her behaviors have become more c hallenging over time with less cooperation and more physical with patient swinging with care needs. Per RN, patient was able to drink without problems. However, have been refusing meds Currently delirious Redirect as needed Remove restraints as soon as possible Safety precautions Psych recommendations noted Continue zyprexa zydis 2.5mg HS. Recent UTI: -Recent admit from 04/29 to 05/04 for Enterococcus urinary tract infection. Could be contributing to her current agitation. Completed Cefepime and Vanco UA this admission does not suggest UTI H/O depression: -on Lexapro H/O paroxysmal atrial tachycardia: -On Toprol XL Dispo: Code Status: FC; however, patient son had indicated to Admitting Provider he would be willing discuss DNR/DNI if not signs of improvement over next 72 hours. PCP: Dr. Preciado Nect of Kin: Denis, son: [phone] VTE prophylaxis: Heparin SQ Admission and Anticipated Discharge Date Admission Date: May 17, 2022 Subjective Patient seen and examined She is alert and oriented to person only On soft UE restraints due to agitation. Had pulled her IV earlier Limited ROS due to dementia Physical Exam Constitutional: no acute distress Eyes: PERRL, conjunctivae normal, anicteric sclerae ENMT: Poor oral hygiene Respiratory: normal respiratory effort, lungs clear to auscultation Cardiovascular: Rate/Rhythm: regular rate and regular rhythm S1 S2 Gastrointestinal (Abdomen): normal bowel sounds, soft, nontender, no hepatosplenomegaly Musculoskeletal: No pedal edema on soft restraints on UE Neurologic: Limited exam Oriented to person only. +confused Results & Data Results & Data ([place]) Vital Signs (Past 12 Hours) Vital Signs Temp Pulse Pulse Resp BP Pulse Ox O2 Del Method 05/19/22 11:25 36.8 C 101 H 18 109/67 90 Room Air 05/19/22 09:57 97 H 05/19/22 06:45 36.6 C 82 20 168/72 H 96 Room Air 05/19/22 04:01 36.8 C 76 20 166/81 H 90 Room Air Laboratory Results Abnormal lab results 05/19/22 05/19/22 Range/Units 01:30 08:42 Chloride 113 H (98-107) mmol/L Carbon Dioxide 19 L (21-32) mmol/L Anion Gap 13 H (3-11) BUN 31 H D (6-23) mg/dl Creatinine 1.34 H D (0.6-1.2) mg/dl BUN/Creatinine Ratio 23.1 H (10-20) Glucose 124 H (70-99(Fasting)) mg/dl Calcium 10.2 H (8.5-10.1) mg/dl Urine Protein 2+ H (Negative) Urine Ketones Trace H (Negative) Urine Blood Trace H (Negative) U Epithel Cells (Auto) 10-20 H (0-5) /lpf (1) Abdominal pain Abdominal location: generalized Qualified Code(s): R10.84 - Generalized abdominal pain
[2022-05-19] MEDS: NYSTATIN SUSP 500,000 U/5 ML UDC PO SCH ×2 (17:22→22:14)
[2022-05-19] MEDS: SODIUM CHLORIDE 0.9% 1000ML 1,000 ML IV SCH (19:16)
[2022-05-19] MEDS: ESCITALOPRAM OXALATE 10 MG TAB PO SCH (22:10)
[2022-05-19] MEDS: OLANZapine ZYDIS 5 MG ORALLY DIS. TAB PO SCH (22:10)
[2022-05-19] MEDS: allopurinoL 300 MG TAB PO SCH (22:15)
[2022-05-20 07:21] LABS: Hematocrit (blood only) 36.9 % (34.1-44.9); Hemoglobin 11.9 g/dl (12.0-16.0); Mean Corpuscular Hemoglobin 31.6 pg (25.0-34.0); Mean Corpuscular Hgb Conc 32.2 g/dL (32.0-36.0); Mean Corpuscular Volume 97.9 fL (80.0-100.0); Mean Platelet Volume 10.7 fL (9.4-12.3); Platelet Count 500 K/uL (130-400); RDW Coefficient of Variation 15.1 % (11.5-14.5); RDW Standard Deviation 54.1 fL (36.4-46.3); Red Blood Count 3.77 M/uL (3.93-5.22); White Blood Count 7.57 K/ul (4.8-10.8)
[2022-05-20 07:44] LABS: BUN Creatinine Ratio 18.6 (10-20); Calcium 10.2 mg/dl (8.5-10.1); Creatinine Clr Calc Pharmacy 21.5 ml/min; Est GFR (African American) 38.5 ml/min; Est GFR (Non-African American) 33.2 ml/min; Potassium 4.7 mmol/L (3.5-5.1)
[2022-05-20] MEDS: LEVOTHYROXINE SODIUM 75 MCG TABLET PO SCH (10:05)
[2022-05-20] MEDS: HEPARIN SOD 5,000 UNIT/0.5 ML VIAL SQ SCH ×3 (10:05→22:36)
[2022-05-20] MEDS: FOLIC ACID 1 MG TAB PO SCH (10:05)
[2022-05-20] MEDS: PANTOprazole 40 MG TAB PO SCH ×3 (10:06→22:37)
[2022-05-20] MEDS: METOPROLOL SUCC 50MG EXT REL TAB PO SCH (10:06)
[2022-05-20] MEDS: MAGNESIUM OXIDE 400 MG TAB PO SCH (10:06)
[2022-05-20] MEDS: NYSTATIN SUSP 500,000 U/5 ML UDC PO SCH ×5 (10:06→22:37)
[2022-05-20] MEDS: CEROVITE ADV FORMULA TAB PO SCH (10:06)
--- NOTE | 2022-05-20 10:22 | Hospitalist Progress Note ---
Date of Service May 20, 2022 Assessment & Plan (1) Senile degeneration of brain: (2) Abdominal pain: (3) Acute on chronic renal failure: (4) Goals of care, counseling/discussion: (5) Recent urinary tract infection: Plan 89 yo F w/ PMH of dementia, benign neoplasm of adrenal gland, CKD III, acoustic neuroma presented 05/17 to our ED d/t her OP creatinine being elevated to 3.58. Pt had decreased appetite and reduced fluid intake at home since 6 days per son. Baseline creatine around 1.2-1.5, She is now presented to the [facility] as her routine labs returned with an elevated creatinine level of 3.58; baseline is 1.19 and some right sided abdominal pain. Acute on Chronic renal failure: -Patient baseline creat 1.19 Cr was 3.58 on presentation BUN 74 TENNILLE likely from poor oral intake. Cr improved. Cr is 1.4 today Has poor oral intake Na trending up Discuss with RN. Encourage po intake, Gentle IVF Dementia At baseline requires all ADL needs to be anticipated. Per admitting provider who spoke with son, her behaviors have become more challenging over time with less cooperation and more physical with patient swinging with care needs. Redirect as needed Off restraints for now Safety precautions Psych recommendations noted Continue zyprexa zydis 2.5mg HS. Recent UTI: -Recent admit from 04/29 to 05/04 for Enterococcus urinary tract infection. Could be contributing to her current agitation. Completed Cefepime and Vanco UA this admission does not suggest UTI H/O depression: -on Lexapro H/O paroxysmal atrial tachycardia: -On Toprol XL Dispo: Code Status: FC; however, patient son had indicated to Admitting Provider he would be willing discuss DNR/DNI if not signs of improvement over next 72 hours. PCP: Dr. Preciado Next of Kin: Denis son: [phone] VTE prophylaxis: Heparin SQ Called son and updated him Admission and Anticipated Discharge Date Admission Date: May 17, 2022 Subjective Patient seen and examined Patient was sleeping Review of Systems Review of Systems: Unobtainable due to cognitive status Physical Exam Constitutional: no acute distress Drowsy Respiratory: normal respiratory effort, lungs clear to auscultation Cardiovascular: Rate/Rhythm: regular rate and regular rhythm S1 S2 Gastrointestinal (Abdomen): normal bowel sounds, soft, nontender, no hepatosplenomegaly Musculoskeletal: No pedal edema Neurologic: Limited exam. Drowsy Results & Data Results & Data ([facility]) Vital Signs (Past 12 Hours) Vital Signs Temp Pulse Pulse Resp BP Pulse Ox O2 Del Method 05/20/22 07:50 67 05/20/22 04:30 36.6 C 64 20 172/88 H 95 Room Air 05/20/22 00:06 36.9 C 84 20 171/118 H 97 Room Air 05/19/22 23:58 76 Laboratory Results Abnormal lab results 05/20/22 05/20/22 Range/Units 07:02 07:02 RBC 3.77 L (3.93-5.22) M/uL Hgb 11.9 L (12.0-16.0) g/dl RDW Std Deviation 54.1 H (36.4-46.3) fL RDW Coeff of Mis 15.1 H (11.5-14.5) % Plt Count 500 H (130-400) K/uL Sodium 149 H (136-145) mmol/L Chloride 117 H (98-107) mmol/L BUN 26 H (6-23) mg/dl Creatinine 1.40 H (0.6-1.2) mg/dl Glucose 131 H (70-99(Fasting)) mg/dl Calcium 10.2 H (8.5-10.1) mg/dl (1) Abdominal pain Abdominal location: generalized Qualified Code(s): R10.84 - Generalized abdominal pain
--- NOTE | 2022-05-20 10:47 | Psychiatric Progress Note ---
Date of Service May 20, 2022 Impression / Recommendations Impression 89 yo female with worsening of baselined cognition and behavior due to multifactorial delirium (recurrent UTIs, antibiotics, multiple transitions, now acute change in renal function, etc). Has responded to Zyprexa IM. 05/20/22: Delirium continues to wax and wane though sleep schedule is improving and she seems to be tolerating Zyprexa without side effects and reduction in agitation and aggression. (1) AMS (altered mental status): (2) Delirium: Plan -c/w Zyprexa zydis 2.5 mg hs, then BID if still requiring prn. -other behavioral interventions/1-on-1 at discretion of hospitalist team -Utilize Zyprexa 2.5 mg IM for acute behavioral emergency Interval History Identifying Information 89 yo female lives with her son in [place], past medical history significant for type 2 diabetes, history of benign neoplasm of adrenal gland, hyperlipidemia, hypothyroidism, hypertension, paroxysmal atrial tachycardia, GERD, chronic kidney disease stage III, history of acoustic neuroma, history of dementia with Alzheimer disease, history of bladder cancer, depression, generalized anxiety disorder, was recently in the hospitalized for antibiotic resistant UTIs. Chief Complaint sleeping Review of Systems Notes see subjective Subjective Subjective Patient was seen & assessed and interval progress reviewed with treatment team nursing and social work. Selina was sleeping this morning and did not wake with verbal prompting and was not felt beneficial to wake her. Chart reviewed and no behavioral events overnight. Has been taking the scheduled Zyprexa Zydis at bedtime. Per discussion with her nurse she has been more redirectable overall with less agitation. Her RN said she slept through most of the night but remains non-oriented. Physical Exam Psychiatric Orientation: + not alert Apperance: appropriately dressed and appropriately groomed Eye Contact: + poor eye contact Motor Behavior: no abnormal motor movements Speech: normal rate/rhythm/volume of speech Affect: euthymic affect Cognition: + recent memory not intact, + remote memory not intact and + attention not intact Insight: + impaired insight Judgement: + impaired judgement Vital Signs (Past 24 Hours) Last Vital Signs Temp 36.6 C 05/20/22 04:30 Pulse 67 05/20/22 07:50 Resp 20 05/20/22 04:30 BP 172/88 H 05/20/22 04:30 Pulse Ox 95 05/20/22 04:30 O2 Del Method 05/20/22 04:30 Results & Data ([facility]) Laboratory Results Laboratory Results - last 24 hr 05/20/22 05/20/22 07:02 07:02 WBC 7.57 RBC 3.77 L Hgb 11.9 L Hct 36.9 MCV 97.9 MCH 31.6 MCHC 32.2 RDW Std Deviation 54.1 H RDW Coeff of Mis 15.1 H Plt Count 500 H MPV 10.7 Sodium 149 H Potassium 4.7 Chloride 117 H Carbon Dioxide 23 Anion Gap 9 BUN 26 H Creatinine 1.40 H Est Cr Clr Drug Dosing 21.5 Est GFR ( Amer) 38.5 Est GFR (Non-Af Amer) 33.2 BUN/Creatinine Ratio 18.6 Glucose 131 H Calcium 10.2 H Current Inpatient Medications Current Inpatient Medications: Current Inpatient Medications Allopurinol (Allopurinol 300 Mg Tab) 300 mg PO HS SARAN Stop: 06/16/22 22:17 Last Admin: 05/19/22 22:15 Dose: 300 mg Escitalopram Oxalate (Escitalopram Oxalate 10 Mg Tab) 10 mg PO QPM SARAN Stop: 06/16/22 22:17 Last Admin: 05/19/22 22:10 Dose: 10 mg Folic Acid (Folic Acid 1 Mg Tab) 1 mg PO QAM SARAN Stop: 06/17/22 08:59 Last Admin: 05/20/22 10:05 Dose: Not Given Heparin Sodium (Porcine) (Heparin Sod 5,000 Unit/0.5 Ml Vial) 5,000 units SQ Q12 SAARN Stop: 06/16/22 20:59 Last Admin: 05/20/22 10:05 Dose: Not Given Levothyroxine Sodium (Levothyroxine Sodium 75 Mcg Tablet) 75 mcg PO DAILYBB SARAN Stop: 06/17/22 06:29 Last Admin: 05/20/22 10:05 Dose: Not Given Loratadine (Loratadine 10 Mg Tab) 10 mg PO DAILY PRN PRN Reason: Allergy Symptoms Stop: 06/16/22 22:17 Magnesium Oxide (Magnesium Oxide 400 Mg Tab) 400 mg PO DAILY SARAN Stop: 06/17/22 08:59 Last Admin: 05/20/22 10:06 Dose: Not Given Melatonin (Melatonin 3 Mg Tab) 9 mg PO HS PRN PRN Reason: Insomnia Metoprolol Succinate (Metoprolol Succ 50mg Ext Rel Tab) 50 mg PO QAM SARAN Stop: 06/17/22 08:59 Last Admin: 05/20/22 10:06 Dose: Not Given Multivitamins/Minerals (Cerovite Adv Formula Tab) 1 tab PO DAILY SARAN Stop: 06/17/22 08:59 Last Admin: 05/20/22 10:06 Dose: Not Given Nystatin (Nystatin Susp 500,000 U/5 Ml Udc) 5 ml PO QID SARAN Stop: 06/18/22 16:59 Last Admin: 05/20/22 10:06 Dose: Not Given Olanzapine (Olanzapine 2.5 Mg Tab) 2.5 mg PO BID PRN PRN Reason: Agitation Stop: 06/16/22 22:17 Olanzapine (Olanzapine Zydis 5 Mg Orally Dis. Tab) 2.5 mg PO HS [facility] Stop: 06/17/22 20:59 Last Admin: 05/19/22 22:10 Dose: 2.5 mg Pantoprazole Sodium (Pantoprazole 40 Mg Tab) 40 mg PO BID SARAN Stop: 06/16/22 22:17 Last Admin: 05/20/22 10:06 Dose: Not Given
[2022-05-20] MEDS: DEXTROSE 5% 1,000 ML IV SCH (14:39)
[2022-05-20] MEDS: OLANZapine ZYDIS 5 MG ORALLY DIS. TAB PO SCH ×2 (22:16→22:39)
[2022-05-20] MEDS: ESCITALOPRAM OXALATE 10 MG TAB PO SCH ×2 (22:20→22:39)
[2022-05-20] MEDS: allopurinoL 300 MG TAB PO SCH ×2 (22:23→22:39)
[2022-05-21] MEDS: LEVOTHYROXINE SODIUM 75 MCG TABLET PO SCH (05:38)
[2022-05-21 07:30] LABS: BUN Creatinine Ratio 15.4 (10-20); Calcium 9.3 mg/dl (8.5-10.1); Creatinine Clr Calc Pharmacy 13.6 ml/min; Est GFR (African American) 22.2 ml/min; Est GFR (Non-African American) 19.1 ml/min; Potassium 3.6 mmol/L (3.5-5.1)
[2022-05-21] MEDS: DEXTROSE 5% 1,000 ML IV SCH (09:04)
[2022-05-21] MEDS: FOLIC ACID 1 MG TAB PO SCH ×2 (09:39→12:15)
[2022-05-21] MEDS: CEROVITE ADV FORMULA TAB PO SCH ×2 (09:39→12:14)
[2022-05-21] MEDS: HEPARIN SOD 5,000 UNIT/0.5 ML VIAL SQ SCH ×2 (09:39→20:20)
[2022-05-21] MEDS: METOPROLOL SUCC 50MG EXT REL TAB PO SCH ×2 (09:39→12:15)
[2022-05-21] MEDS: PANTOprazole 40 MG TAB PO SCH ×3 (09:39→20:20)
[2022-05-21] MEDS: NYSTATIN SUSP 500,000 U/5 ML UDC PO SCH ×4 (09:39→20:20)
[2022-05-21] MEDS: MAGNESIUM OXIDE 400 MG TAB PO SCH ×2 (09:39→12:15)
[2022-05-21] MEDS: D5W AND 1/2NSS 1,000 ML IV SCH ×2 (10:02→21:05)
--- NOTE | 2022-05-21 10:42 | Hospitalist Progress Note ---
Date of Service May 21, 2022 Assessment & Plan (1) Senile degeneration of brain: (2) Abdominal pain: (3) Acute on chronic renal failure: (4) Goals of care, counseling/discussion: (5) Recent urinary tract infection: Plan 89 yo F w/ PMH of dementia, benign neoplasm of adrenal gland, CKD III, acoustic neuroma presented 05/17 to our ED d/t her OP creatinine being elevated to 3.58. Pt had decreased appetite and reduced fluid intake at home since 6 days per son. Baseline creatine around 1.2-1.5, She is now presented to the [facility] as her routine labs returned with an elevated creatinine level of 3.58; baseline is 1.19 and some right sided abdominal pain. Acute on Chronic renal failure: -Patient baseline creat 1.19 Cr was 3.58 on presentation BUN 74 TENNILLE likely from poor oral intake. Cr had improved to 1.34 with IVF However, Cr up again to 2.21 with increasing BUN due to poor fluid intake Resume IVF Discussed with patient's son who was at bedside about this. We discussed that he may have to reassess GOC if patient continues to decline po intake Dementia At baseline requires all ADL needs to be anticipated. Per admitting provider who spoke with son, her behaviors have become more challenging over time with less cooperation and more physical with patient swinging with care needs. Redirect as needed Off restraints and 1 to 1 for now Safety precautions Psych recommendations noted Continue zyprexa zydis 2.5mg HS. Recent UTI: -Recent admit from 04/29 to 05/04 for Enterococcus urinary tract infection. Could be contributing to her current agitation. Completed Cefepime and Vanco UA this admission does not suggest UTI H/O depression: -on Lexapro H/O paroxysmal atrial tachycardia: -On Toprol XL Dispo: Code Status: Full code. PCP: Dr. Preciado Next of Kin: Denis son: [phone] VTE prophylaxis: Heparin SQ Admission and Anticipated Discharge Date Admission Date: May 17, 2022 Subjective Patient seen and examined Awake, alert oriented to person only but confused Occasionally follows commands Review of Systems Review of Systems: Unobtainable due to cognitive status Physical Exam Constitutional: no acute distress Eyes: PERRL, conjunctivae normal, anicteric sclerae ENMT: Dry oral mucosa Respiratory: normal respiratory effort, lungs clear to auscultation Cardiovascular: Rate/Rhythm: regular rate and regular rhythm S1 S2 Gastrointestinal (Abdomen): normal bowel sounds, soft, nontender, no hepatosplenomegaly Musculoskeletal: No pedal edema Neurologic: PERRL, EOMI Alert and oriented to person only Occasionally follows commands Results & Data Results & Data ([facility]) Vital Signs (Past 12 Hours) Vital Signs Temp Pulse Pulse Resp BP Pulse Ox O2 Del Method 05/21/22 10:07 Room Air 05/21/22 07:36 70 05/21/22 04:00 36.5 C 87 20 110/73 92 Room Air Laboratory Results Abnormal lab results 05/21/22 Range/Units 06:40 Chloride 113 H (98-107) mmol/L BUN 34 H (6-23) mg/dl Creatinine 2.21 H D (0.6-1.2) mg/dl Glucose 135 H (70-99(Fasting)) mg/dl (1) Abdominal pain Abdominal location: generalized Qualified Code(s): R10.84 - Generalized abdominal pain
[2022-05-21] MEDS: OLANZapine ZYDIS 5 MG ORALLY DIS. TAB PO SCH (20:21)
[2022-05-21] MEDS: ESCITALOPRAM OXALATE 10 MG TAB PO SCH (20:21)
[2022-05-21] MEDS: allopurinoL 300 MG TAB PO SCH (20:21)
--- NOTE | 2022-05-22 06:12 | Electrocardiogram Report ---
Test Reason : Blood Pressure : / mmHG Vent. Rate : 072 BPM Atrial Rate : 072 BPM P-R Int : 234 ms QRS Dur : 080 ms QT Int : 394 ms P-R-T Axes : 043 012 063 degrees QTc Int : 431 ms Sinus rhythm with 1st degree A-V block Otherwise normal ECG When compared with ECG of 17-MAY-2022 15:25, No significant change was found Confirmed by Ilya Campbell ([id number]) on 05/22/2022 6:11:59 AM Referred By: Jeff Good Confirmed By:Ilya Campbell
[2022-05-22] MEDS: LEVOTHYROXINE SODIUM 75 MCG TABLET PO SCH (06:16)
[2022-05-22] MEDS: D5W AND 1/2NSS 1,000 ML IV SCH ×2 (07:54→17:51)
[2022-05-22] MEDS: MAGNESIUM OXIDE 400 MG TAB PO SCH (10:30)
[2022-05-22] MEDS: METOPROLOL SUCC 50MG EXT REL TAB PO SCH (10:30)
[2022-05-22] MEDS: FOLIC ACID 1 MG TAB PO SCH (10:30)
[2022-05-22] MEDS: CEROVITE ADV FORMULA TAB PO SCH (10:30)
[2022-05-22] MEDS: PANTOprazole 40 MG TAB PO SCH ×2 (10:30→23:13)
--- NOTE | 2022-05-22 10:30 | Hospitalist Progress Note ---
Date of Service May 22, 2022 Assessment & Plan (1) Senile degeneration of brain: (2) Abdominal pain: (3) Acute on chronic renal failure: (4) Goals of care, counseling/discussion: (5) Recent urinary tract infection: Plan 89 yo F w/ PMH of dementia, benign neoplasm of adrenal gland, CKD III, acoustic neuroma presented 05/17 to our ED d/t her OP creatinine being elevated to 3.58. Pt had decreased appetite and reduced fluid intake at home since 6 days per son. Baseline creatine around 1.2-1.5, She is now presented to the [facility] as her routine labs returned with an elevated creatinine level of 3.58; baseline is 1.19 and some right sided abdominal pain. Acute on Chronic renal failure: -Patient baseline creat 1.19 Cr was 3.58 on presentation BUN 74 TENNILLE likely from poor oral intake. Cr had improved to 1.34 with IVF However, Cr up again to 2.28 due to poor fluid intake Continue IVF Hb drop to 9.5. Possibly dilutional. Monitor Dementia At baseline requires all ADL needs to be anticipated. Per admitting provider who spoke with son, her behaviors have become more challenging over time with less cooperation and more physical with patient swinging with care needs. Redirect as needed Off restraints and 1 to 1 Safety precautions Psych recommendations noted Continue zyprexa zydis 2.5mg HS. Palliative consult for [facility] Recent UTI: -Recent admit from 04/29 to 05/04 for Enterococcus urinary tract infection. Could be contributing to her current agitation. Completed Cefepime and Vanco UA this admission does not suggest UTI Has been having intermittent urinary retention with straight cath. Purcell ordered H/O depression: -on Lexapro H/O paroxysmal atrial tachycardia: -On Toprol XL Dispo: Code Status: Full code. PCP: Dr. Preciado Next of Kin: Denis son: [phone] VTE prophylaxis: Heparin SQ Admission and Anticipated Discharge Date Admission Date: May 17, 2022 Subjective Patient seen and examined Awake, alert oriented to person only but confused Occasionally follows commands Review of Systems Review of Systems: Unobtainable due to cognitive status Physical Exam Constitutional: no acute distress Eyes: PERRL, conjunctivae normal, anicteric sclerae Respiratory: normal respiratory effort, lungs clear to auscultation Cardiovascular: Rate/Rhythm: regular rate and regular rhythm S1 S2 Gastrointestinal (Abdomen): normal bowel sounds, soft, nontender, no hepatosplenomegaly Musculoskeletal: No pedla edema Neurologic: PERRL, EOMI Alert and oriented to person only Results & Data Results & Data ([facility]) Vital Signs (Past 12 Hours) Vital Signs Temp Pulse Pulse Resp BP BP Pulse Ox 05/22/22 08:24 36.8 C 64 20 89/47 L 96 05/22/22 07:48 66 05/22/22 02:46 36.4 C L 62 20 94/58 L 93 05/21/22 22:30 68 05/21/22 23:33 36.5 C 66 20 89/52 L 72/45 L 91 O2 Del Method 05/22/22 08:24 Room Air 05/22/22 07:48 05/22/22 02:46 Room Air 05/21/22 22:30 05/21/22 23:33 Room Air Laboratory Results Abnormal lab results 05/22/22 05/22/22 Range/Units 12:11 12:11 RBC 3.01 L (3.93-5.22) M/uL Hgb 9.5 L (12.0-16.0) g/dl Hct 29.3 L (34.1-44.9) % RDW Std Deviation 54.4 H (36.4-46.3) fL RDW Coeff of Mis 15.3 H (11.5-14.5) % Potassium 3.4 L (3.5-5.1) mmol/L Chloride 110 H (98-107) mmol/L Carbon Dioxide 19 L (21-32) mmol/L BUN 34 H (6-23) mg/dl Creatinine 2.28 H (0.6-1.2) mg/dl Glucose 174 H (70-99(Fasting)) mg/dl (1) Abdominal pain Abdominal location: generalized Qualified Code(s): R10.84 - Generalized abdominal pain
[2022-05-22] MEDS: HEPARIN SOD 5,000 UNIT/0.5 ML VIAL SQ SCH ×2 (10:32→23:12)
[2022-05-22] MEDS: NYSTATIN SUSP 500,000 U/5 ML UDC PO SCH ×4 (10:32→23:12)
--- NOTE | 2022-05-22 12:18 | Palliative Care Consultation ---
Date of Consultation May 22, 2022 Assessment & Plan (1) Delirium: Variable. Followed by psychiatry. On zyprexa. (2) Palliative care encounter: Selina is unfortunately unable to fully understand the extent of her illness and impacts of treatment and is not capable of decision making at this time. I spoke with her son, Denis, with whom she lives. He has caregivers who live in a basement apartment in the home. His hope is that she would be able to return home and ultimately get stronger to be walking around again. I expressed concern that this may be optimistic considering that she has been wheelchair bound for some time prior to admission. He acknowledges this but is still hopeful. I also expressed concern about recurrent problems with renal failure due to poor po intake. He feels confident that he can encourage her to eat and drink at home. He notes that if she continued to have repeat hospitalizations, he may have to rethink this but feels that she can improve at this time. I asked him if Selina had ever talked about her wishes. He tells me that she has said that she would want to remain at home but has not specifically talked about end of life issues. I asked him what Selina enjoys and what he felt gave her good quality of life. He tells me that she reads, enjoys visiting with family and that they have discussions and reminisce about old times. 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 I asked him what his thoughts were about code status and he tells me that he would want her to be a full code. I asked him what he hoped the outcome of the code would be and his answer was "survival". We talked about survival versus what her life would be like if she did survive a code and he feels that this is what she would want at this time. He does note that as things progress, this may need to be reconsidered. (3) Acute on chronic renal failure: History of Present Illness Reason for Consultation: goals of care Requesting Physician: Dr. Murray Attending Physician: Yana Murray MD History of Present Illness 89 yo lady with dementia who lives at home with her son. She was hospitalized last month with drug resistant UTI. She has had poor po intake at home and has reportedly also had increased agitated behavior. She had labs done as an outpatient and was found to have acute on chronic renatl failure with creatinine elevated to 3.58. This did improve with hydration during admission but is trending up again with creatinine of 2.2 today. She has had agitation and was seen by psychiatry. She is currently on HS zyprexa with prn dosing though she does not appear to have had any prn doses. She is sleeping at the time of my visit but arouses when her name is called. She is pleasant and cooperative during the visit and asked me for some coffee and toast. She complains of muscle pain all over. Allergies Allergy/AdvReac Type Severity Reaction Status Date / Time amoxicillin Allergy ITCHING Unverified 05/17/22 17:34 mirtazapine AdvReac Intermediate Increased Verified 05/17/22 17:34 Anxiety morphine AdvReac Intermediate NAUSEA Verified 05/17/22 17:34 oxycodone AdvReac Intermediate GI SYMPTOMS Verified 05/17/22 17:34 Home Medications Medication Instructions Recorded Confirmed Type allopurinol 300 mg tablet 300 mg PO HS 03/14/19 05/17/22 History folic acid 1 mg tablet 1 mg PO QAM 03/14/19 05/17/22 History lisinopril 5 mg tablet 5 mg PO QAM 03/14/19 05/17/22 History metoprolol succinate 50 mg 50 mg PO QAM 03/14/19 05/17/22 History tablet,extended release 24 hr omeprazole 40 mg capsule,delayed 40 mg PO BID 03/14/19 05/17/22 History release acetaminophen 500 mg tablet 500 - 1,000 mg PO DIRECTED PRN 12/29/21 05/17/22 History (Tylenol Extra Strength) PAIN/FEVER furosemide 20 mg tablet 10 mg PO DAILY PRN Edema 12/29/21 05/17/22 History levothyroxine 75 mcg tablet 75 mcg PO QAM 12/29/21 05/17/22 History ddboxuoq-iff-elrby ac 400 1 tab PO DAILY 03/14/22 05/17/22 History mcg-calcium carb 500 mg-vit K1 20 mcg tablet (Women's 50 Plus Multivitamin) phenylephrine 5 1 cap PO DIRECTED PRN 03/14/22 05/17/22 History mg-dextromethorphan 10 COLD/CONGESTION SYMPTOMS mg-acetaminophen 325 mg capsule ([place] Plus Sinus-Cough) phenylephrine 5 1 cap PO DIRECTED PRN 03/14/22 05/17/22 History mg-dextromethorphan 10 COLD/CONGESTION SYMPTOMS mg-acetaminophen 325 mg capsule ([facility]icks DayQuil Cold and Flu Relief) escitalopram oxalate 10 mg tablet 10 mg PO QPM 04/28/22 05/17/22 History loratadine 10 mg tablet 10 mg PO DAILY PRN Allergy Symptoms 04/28/22 05/17/22 History melatonin 10 mg tablet 10 mg PO HS PRN Insomnia 04/28/22 05/17/22 History magnesium oxide 400 mg PO DAILY #30 tabs 05/12/22 05/17/22 Rx olanzapine 2.5 mg tablet (Zyprexa) 0 mg PO DIRECTED PRN Anxiety 05/17/22 05/17/22 History Patient History Medical History 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 CKD (chronic kidney disease) stage 3, GFR 30-59 ml/min Dementia Diverticulitis Goals of care, counseling/discussion Hypertension Hypothyroidism Recent urinary tract infection Senile degeneration of brain Family History Other Family history non-contributory Social History Smoking Status: Unknown if ever smoked Tobacco Type: Cigarettes Second Hand Exposure: No; Hx Alcohol Use: No Hx Substance Use: No Preferred Language: Icelandic Communication Ability: Unable Hearing Ability: Hard of Hearing 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 Beliefs That Will Affect Care: None marital status: / Current Living Situation: Family Current Living Situation Comment: Son current occupational status: retired Other Information That Helps Us Care for You: No Feels Safe at Home: Yes Assistive Devices: Glasses and Wheelchair Review of Systems Review of Systems: Esas Pain 1/3 Dyspnea 0/3 Anxiety 0/3 Nausea 0/3 Drowsiness 0/3 PPS 40% Physical Exam Constitutional: no acute distress Respiratory: normal respiratory effort; no labored breathing Cardiovascular: Extremities: no edema Musculoskeletal: Extremities: + muscle atrophy Neurologic: Speech / Cognition: + abnormal cognition Results & Data ([facility]) Vital Signs (Past 12 Hours) Vital Signs Temp Pulse Pulse Resp BP Pulse Ox O2 Del Method 05/22/22 11:16 98.2 F 65 18 93/54 L 95 Room Air 05/22/22 10:55 Room Air 05/22/22 08:24 98.2 F 64 20 89/47 L 96 Room Air 05/22/22 07:48 66 05/22/22 02:46 97.5 F L 62 20 94/58 L 93 Room Air PG Care Time/CCT Total # of Minutes Spent Total Time Spent: 58 Total Time Spent with Patient: Total time spent is greater than 50% in coordination of care (as documented) at patient's floor/unit and/or counseling patient: goals of care, code status Coding Level of Care Code 41947 Inpt Consult Level 2 Diagnoses Delirium R41.0 Palliative care encounter Z51.5 Acute on chronic renal failure N17.9; N18.9
[2022-05-22 12:42] LABS: Hematocrit (blood only) 29.3 % (34.1-44.9); Hemoglobin 9.5 g/dl (12.0-16.0); Mean Corpuscular Hemoglobin 31.6 pg (25.0-34.0); Mean Corpuscular Hgb Conc 32.4 g/dL (32.0-36.0); Mean Corpuscular Volume 97.3 fL (80.0-100.0); Mean Platelet Volume 11.3 fL (9.4-12.3); Platelet Count 394 K/uL (130-400); RDW Coefficient of Variation 15.3 % (11.5-14.5); RDW Standard Deviation 54.4 fL (36.4-46.3); Red Blood Count 3.01 M/uL (3.93-5.22); White Blood Count 7.46 K/ul (4.8-10.8)
[2022-05-22 13:09] LABS: BUN Creatinine Ratio 14.9 (10-20); Calcium 8.8 mg/dl (8.5-10.1); Creatinine Clr Calc Pharmacy 14.6 ml/min; Est GFR (African American) 21.4 ml/min; Est GFR (Non-African American) 18.4 ml/min; Potassium 3.4 mmol/L (3.5-5.1)
[2022-05-22] MEDS: allopurinoL 300 MG TAB PO SCH (23:11)
[2022-05-22] MEDS: ESCITALOPRAM OXALATE 10 MG TAB PO SCH (23:12)
[2022-05-22] MEDS: OLANZapine ZYDIS 5 MG ORALLY DIS. TAB PO SCH (23:12)
[2022-05-23] MEDS: ACETAMINOPHEN 325 MG TAB PO PRN ×2 (01:40→21:02)
[2022-05-23] MEDS: D5W AND 1/2NSS 1,000 ML IV SCH ×3 (01:46→17:15)
[2022-05-23] MEDS: LEVOTHYROXINE SODIUM 75 MCG TABLET PO SCH (02:25)
[2022-05-23] MEDS: CEROVITE ADV FORMULA TAB PO SCH (07:59)
[2022-05-23] MEDS: METOPROLOL SUCC 50MG EXT REL TAB PO SCH (07:59)
[2022-05-23] MEDS: FOLIC ACID 1 MG TAB PO SCH (07:59)
[2022-05-23] MEDS: HEPARIN SOD 5,000 UNIT/0.5 ML VIAL SQ SCH ×2 (07:59→20:49)
[2022-05-23] MEDS: NYSTATIN SUSP 500,000 U/5 ML UDC PO SCH ×4 (07:59→20:56)
[2022-05-23] MEDS: PANTOprazole 40 MG TAB PO SCH ×2 (07:59→20:48)
[2022-05-23] MEDS: MAGNESIUM OXIDE 400 MG TAB PO SCH (07:59)
[2022-05-23 10:26] LABS: Hematocrit (blood only) 31.6 % (34.1-44.9); Hemoglobin 10.1 g/dl (12.0-16.0); Mean Corpuscular Hemoglobin 31.3 pg (25.0-34.0); Mean Corpuscular Volume 97.8 fL (80.0-100.0); Mean Platelet Volume 11.5 fL (9.4-12.3); Platelet Count 429 K/uL (130-400); RDW Coefficient of Variation 15.1 % (11.5-14.5); RDW Standard Deviation 54.4 fL (36.4-46.3); Red Blood Count 3.23 M/uL (3.93-5.22); White Blood Count 6.28 K/ul (4.8-10.8)
[2022-05-23 10:47] LABS: BUN Creatinine Ratio 14.9 (10-20); Calcium 9.1 mg/dl (8.5-10.1); Creatinine Clr Calc Pharmacy 20.4 ml/min; Est GFR (African American) 32.5 ml/min; Est GFR (Non-African American) 28.1 ml/min; Potassium 3.6 mmol/L (3.5-5.1)
--- NOTE | 2022-05-23 15:32 | Hospitalist Progress Note ---
Date of Service May 23, 2022 Assessment & Plan (1) Senile degeneration of brain: (2) Abdominal pain: (3) Acute on chronic renal failure: (4) Goals of care, counseling/discussion: (5) Recent urinary tract infection: Plan 89 yo F w/ PMH of dementia, benign neoplasm of adrenal gland, CKD III, acoustic neuroma presented 05/17 to our ED d/t her OP creatinine being elevated to 3.58. 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 Baseline creatine around 1.2-1.5, she is being managed for the following: Acute on Chronic renal failure: Patient baseline creat 1.19 Cr was 3.58 and BUN 74 on presentation TENNILLE likely from poor oral intake. Cr had improved to 1.34 with IVF but again trended up upon stopping IV fluids due to ongoing poor p.o. intake Continue IVF, decrease fluid as p.o. intake improves. Get repeat BNP in AM. Dementia At baseline requires all ADL needs to be anticipated and made by patient's son who lives with her. Per her son, her behaviors have become more challenging over time with less cooperation and more physical with patient swinging with care needs. Redirect as needed; Safety precautions Psych recommendations noted, Zyprexa 2.5 mg at bedtime and can use Zyprexa 2.5 mg IM for acute behavioral emergency Palliative on board for [facility] Recent UTI: -Recent admit from 04/29 to 05/04 for Enterococcus urinary tract infection. Could be contributing to her current agitation. Completed Cefepime and Vanco UA this admission does not suggest UTI Has been having intermittent urinary retention with straight cath. Purcell in place H/O depression: -on Lexapro H/O paroxysmal atrial tachycardia: -On Toprol XL Dispo: Pending improvement in appetite and renal function Code Status: Full code. PCP: Dr. Preciado Next of Kin: Denis son: [phone] VTE prophylaxis: Heparin SQ Admission and Anticipated Discharge Date Admission Date: May 17, 2022 Subjective Patient seen and examined at bedside as a follow-up of acute on chronic renal failure and advanced dementia. Patient was lying in the bed, sleeping, woke up easily upon calling name, was able to tell own name, denies pain or discomfort, ROS n/a due to cognition status. Per RN no new acute events overnight. Patient ate 50% of her breakfast per RN. We will decrease her IV fluid rate. Physical Exam Physical Exam: GENERAL: Awake and alert, on RA, NAD. HEENT: No pallor, no icterus. NECK: No JVD, no neck masses. HEART: didn't allow RESPIRATORY SYSTEM: No accessory muscle use. No wheezing, no crackles. ABDOMEN: soft, nl bowel sound, non distended, non tender. CENTRAL NERVOUS SYSTEM: No facial droop. rest n/a EXTREMITIES: No edema, no erythema seen. UC in situ w/ yellow urine noted. Results & Data Results & Data ([facility]) Vital Signs (Past 12 Hours) Vital Signs Temp Pulse Resp BP Pulse Ox O2 Del Method 05/23/22 11:33 36.5 C 65 20 96/53 L 95 05/23/22 08:45 Room Air 05/23/22 08:20 36.8 C 68 20 135/57 L 96 (1) Abdominal pain Abdominal location: generalized Qualified Code(s): R10.84 - Generalized abdominal pain
[2022-05-23] MEDS: allopurinoL 300 MG TAB PO SCH (20:48)
[2022-05-23] MEDS: ESCITALOPRAM OXALATE 10 MG TAB PO SCH (20:49)
[2022-05-23] MEDS: OLANZapine ZYDIS 5 MG ORALLY DIS. TAB PO SCH (20:50)
[2022-05-24] MEDS: LEVOTHYROXINE SODIUM 75 MCG TABLET PO SCH (05:44)
[2022-05-24] MEDS: D5W AND 1/2NSS 1,000 ML IV SCH (05:47)
[2022-05-24] MEDS: CEROVITE ADV FORMULA TAB PO SCH ×2 (09:22→09:51)
[2022-05-24] MEDS: METOPROLOL SUCC 50MG EXT REL TAB PO SCH ×2 (09:23→09:51)
[2022-05-24] MEDS: FOLIC ACID 1 MG TAB PO SCH ×2 (09:23→09:51)
[2022-05-24] MEDS: MAGNESIUM OXIDE 400 MG TAB PO SCH ×2 (09:24→09:51)
[2022-05-24] MEDS: NYSTATIN SUSP 500,000 U/5 ML UDC PO SCH ×5 (09:24→21:44)
[2022-05-24] MEDS: PANTOprazole 40 MG TAB PO SCH ×3 (09:24→21:31)
[2022-05-24] MEDS: HEPARIN SOD 5,000 UNIT/0.5 ML VIAL SQ SCH ×2 (09:24→21:29)
[2022-05-24] MEDS: OLANZAPINE 2.5 MG TAB PO PRN (09:38)
[2022-05-24] MEDS ORDERED: OLANZapine 10 MG/2.1 ML SDV IM STA (09:52)
[2022-05-24 12:09] LABS: Hematocrit (blood only) 34.1 % (34.1-44.9); Hemoglobin 11.3 g/dl (12.0-16.0); Mean Corpuscular Hemoglobin 31.9 pg (25.0-34.0); Mean Corpuscular Hgb Conc 33.1 g/dL (32.0-36.0); Mean Corpuscular Volume 96.3 fL (80.0-100.0); Mean Platelet Volume 10.5 fL (9.4-12.3); Platelet Count 455 K/uL (130-400); RDW Coefficient of Variation 14.8 % (11.5-14.5); RDW Standard Deviation 53.1 fL (36.4-46.3); Red Blood Count 3.54 M/uL (3.93-5.22); White Blood Count 10.67 K/ul (4.8-10.8)
[2022-05-24 12:36] LABS: BUN Creatinine Ratio 15.5 (10-20); Calcium 9.7 mg/dl (8.5-10.1); Creatinine Clr Calc Pharmacy 28.5 ml/min; Est GFR (African American) 48.3 ml/min; Est GFR (Non-African American) 41.7 ml/min; Magnesium 1.4 mg/dl (1.7-2.4); Phosphorus 2.4 mg/dl (2.5-4.9); Potassium 4.1 mmol/L (3.5-5.1)
[2022-05-24] MEDS: MAGNESIUM SULFATE / D5W 1 GM/100 ML BAG IV SCH ×2 (13:04→15:35)
[2022-05-24] MEDS ORDERED: OLANZapine 10 MG/2.1 ML SDV IM PRN (17:16)
--- NOTE | 2022-05-24 17:29 | Hospitalist Progress Note ---
Date of Service May 24, 2022 Assessment & Plan (1) Senile degeneration of brain: (2) Abdominal pain: (3) Acute on chronic renal failure: (4) Goals of care, counseling/discussion: (5) Recent urinary tract infection: Plan 89 yo F w/ PMH of dementia, benign neoplasm of adrenal gland, CKD III, acoustic neuroma presented 05/17 to our ED d/t her OP creatinine being elevated to 3.58. 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 Baseline creatine around 1.2-1.5, she is being managed for the following: Acute on Chronic renal failure: Patient baseline creat 1.19 Cr was 3.58 and BUN 74 on presentation TENNILLE likely from poor oral intake. Cr had improved to 1.34 with IVF but again trended up upon stopping IV fluids due to ongoing poor p.o. intake Cr again normal, dc ivf today, w/ some po intake today. BMP in AM. Dementia At baseline requires all ADL needs to be anticipated and made by patient's son who lives with her. Per her son, her behaviors have become more challenging over time with less cooperation and more physical with patient swinging with care needs. Redirect as needed; Safety precautions Psych recommendations noted, Zyprexa 2.5 mg at bedtime to be increased to BID if necessary and can use Zyprexa 2.5 mg IM for acute behavioral emergency Palliative on board for [facility] Recent UTI: -Recent admit from 04/29 to 05/04 for Enterococcus urinary tract infection. Could be contributing to her current agitation. Completed Cefepime and Vanco UA this admission does not suggest UTI Has been having intermittent urinary retention with straight cath. Purcell in place H/O depression: -on Lexapro H/O paroxysmal atrial tachycardia: -On Toprol XL Dispo: to hospice likely art. Code Status: Full code. PCP: Dr. Preciado Next of Kin: Denis son: [phone] VTE prophylaxis: Heparin SQ Admission and Anticipated Discharge Date Admission Date: May 17, 2022 Subjective Patient seen and examined at bedside as a follow-up of acute on chronic renal failure and advanced dementia with behavioral disturbances. Patient was lying in the bed, restless/mildly agitated, not able to follow commands/cooperate, denies pain or discomfort, ROS n/a due to cognition status. Per RN, ate breakfast and some of her lunch, refusing meds and throwing meals at staff, was agitated in AM requiring IM zyprexa. D/w Patient's son at bedside during the day, he would like to take his mom under hospice given her worsening mentation and lack of appetite on the background of advanced dementia which I believe is appropriate. He changed her code status to DNR/DNI. Physical Exam Physical Exam: GENERAL: Awake and alert, on RA, mildly restless. HEENT: No pallor, no icterus. NECK: No JVD, no neck masses. HEART: s1, s2, no murmurs appreciated. RESPIRATORY SYSTEM: No accessory muscle use. No wheezing, no crackles. ABDOMEN: soft, nl bowel sound, non distended, non tender. CENTRAL NERVOUS SYSTEM: No facial droop. rest n/a EXTREMITIES: No edema, no erythema seen. UC in situ w/ yellow urine noted. Results & Data Results & Data ([facility]) Vital Signs (Past 12 Hours) Vital Signs Temp Pulse Pulse Resp BP Pulse Ox O2 Del Method 05/24/22 11:07 65 05/24/22 09:22 36.4 C L 80 20 139/81 95 Room Air 05/24/22 07:31 Room Air (1) Abdominal pain Abdominal location: generalized Qualified Code(s): R10.84 - Generalized abdominal pain
[2022-05-24] MEDS: allopurinoL 300 MG TAB PO SCH (21:30)
[2022-05-24] MEDS: OLANZapine ZYDIS 5 MG ORALLY DIS. TAB PO SCH (21:30)
[2022-05-24] MEDS: ESCITALOPRAM OXALATE 10 MG TAB PO SCH (21:31)
[2022-05-25] MEDS: LEVOTHYROXINE SODIUM 75 MCG TABLET PO SCH (05:58)
[2022-05-25] MEDS: MAGNESIUM OXIDE 400 MG TAB PO SCH (09:40)
[2022-05-25] MEDS: PANTOprazole 40 MG TAB PO SCH (09:40)
[2022-05-25] MEDS: CEROVITE ADV FORMULA TAB PO SCH (09:40)
[2022-05-25] MEDS: METOPROLOL SUCC 50MG EXT REL TAB PO SCH (09:40)
[2022-05-25] MEDS: FOLIC ACID 1 MG TAB PO SCH (09:40)
--- NOTE | 2022-05-25 09:40 | Discharge Summary ---
Date of Service May 25, 2022 Admission HPI Per Admitting Provider This is an 89-year-old female with past medical history significant for type 2 diabetes, currently not on any medications, history of benign neoplasm of adrenal gland, hyperlipidemia, hypothyroidism, hypertension, paroxysmal atrial tachycardia, GERD, chronic kidney disease stage III, history of acoustic neuroma, history of mild dementia with Alzheimer disease, history of bladder cancer, depression, generalized anxiety disorder, was recently in the hospital for Enterococcus, resistant to penicillin and was treated with daptomycin. She had a recent admission from April 29-May 04 for a complicated UTI s/p abx completion. She is now presented to the [facility] as her routine labs returned with an elevated creatinine level of 3.58; baseline is 1.19 and some right sided abdominal pain. Pt son reports decreased fluid intake. She received a liter of NS in the ED. CXR and abdominal CT completed. Pt not participating in ROS and is unreliable for such. All information obtained from patient son Denis. Please see A/P for further details. Admission Exam Per Admitting Provider Neuro: AAOx1, PERRLA, HEENT: head normocephalic, moist mucus membranes CV: S1/S2, (-) M/G/R, (-) edema, cap refill < 3 seconds Resp: Lungs CTA in all mccoy anteriorly; pt would not allow posterior exam. On RA GI: Abdomen S/NT/ND, Ax4 bowel sounds, (-) CVA tenderness Musculoskeletal: pt does not follow commands Skin: (-) rashes , (-) erythema. Psych: + behavioral disturbance r/t dementia Principal Diagnosis Advanced dementia with behavioral disturbances Poor appetite Acute on chronic renal failure UTI Discharge Exam GENERAL: sleeping, on RA HEENT: No pallor, no icterus. NECK: No JVD, no neck masses. HEART: s1, s2, no murmurs appreciated. RESPIRATORY SYSTEM: No accessory muscle use. No wheezing, no crackles. ABDOMEN: soft, nl bowel sound, non distended, non tender. CENTRAL NERVOUS SYSTEM: No facial droop. rest n/a EXTREMITIES: No edema, no erythema seen. UC in situ w/ yellow urine noted. Discharge Data Allergies Allergy/AdvReac Type Severity Reaction Status Date / Time amoxicillin Allergy ITCHING Unverified 05/17/22 17:34 mirtazapine AdvReac Intermediate Increased Verified 05/17/22 17:34 Anxiety morphine AdvReac Intermediate NAUSEA Verified 05/17/22 17:34 oxycodone AdvReac Intermediate GI SYMPTOMS Verified 05/17/22 17:34 Consultations 05/17/22 17:18 ED Decision to Admit Stat 05/18/22 13:27 Consult Psychiatry Routine 05/21/22 09:47 Consult Palliative Care Routine Ordered Studies 05/17/22 15:45 CT abd pelvis wo con Stat Hospital Course (1) Senile degeneration of brain: (2) Abdominal pain: (3) Acute on chronic renal failure: (4) Goals of care, counseling/discussion: (5) Recent urinary tract infection: Plan 89 yo F w/ PMH of dementia, benign neoplasm of adrenal gland, CKD III, acoustic neuroma presented 05/17 to our ED d/t her OP creatinine being elevated to 3.58. Pt had decreased appetite and reduced fluid intake at home since 6 days TAILERCPA per son. Baseline creatine around 1.2-1.5, she was managed for the following: Acute on Chronic renal failure: Patient baseline creat 1.19 Cr was 3.58 and BUN 74 on presentation T[place]LE likely from poor oral intake. Cr had improved to 1.34 with IVF but again trended up upon stopping IV fluids due to ongoing poor p.o. intake Cr normalized, off of ivf w/ some po intake yesterday. Dementia At baseline requires all ADL needs to be anticipated and made by patient's son who lives with her. Per her son, her behaviors have become more challenging over time with less cooperation and more physical with patient swinging with care needs. Redirect as needed; Safety precautions Psych recommendations noted, Zyprexa 2.5 mg at bedtime to be increased to BID if necessary and can use Zyprexa 2.5 mg IM for acute behavioral emergency Palliative on board for GOC, Pt being discharged to home w/ hospice. Recent UTI: -Recent admit from 04/29 to 05/04 for Enterococcus urinary tract infection. Could be contributing to her current agitation. Completed Cefepime and Vanco UA this admission does not suggest UTI Has been having intermittent urinary retention with straight cath. Purcell in place H/O depression: -on Lexapro H/O paroxysmal atrial tachycardia: -On Toprol XL Code Status: DNR/DNI PCP: Dr. Preciado Next of Kin: Denis son: [phone] Patient being discharged to home with hospice. Total Time Total Time Spent Total Time Spent (In Minutes): 35 Discharge Plan Discharge Items Patient Disposition: Hospice - Home Reason For Visit: ABNORMAL LABS Discharge Diagnosis: Advanced dementia with behavioral disturbances Poor appetite Acute on chronic renal failure UTI Activity: Resume your previous activity Non-emergency contact: Primary Care Provider Call non-emergency contact if: you have any medication questions Follow-up/Referrals: Jeff Good, [Primary Care Provider] - Diet: Regular Addtl Attending Provider Instructions: You are being discharged to home with hospice, hospice will take control over your medications and comfort level. Pending Studies at Discharge: No Stand-Alone Forms: My [facility] Medications and DC Order Prescriptions: Continued metoprolol succinate 50 mg tablet extended release 24 hr 50 mg PO QAM omeprazole 40 mg capsule,delayed release(DR/EC) 40 mg PO BID folic acid 1 mg tablet 1 mg PO QAM allopurinol 300 mg tablet 300 mg PO HS acetaminophen [Tylenol Extra Strength] 500 mg Tablet 500 - 1,000 mg PO DIRECTED PRN (Reason: PAIN/FEVER) levothyroxine 75 mcg tablet 75 mcg PO QAM furosemide 20 mg tablet 10 mg PO DAILY PRN (Reason: Edema) Vicks DayQuil Cold-Flu Relief 5-10-325 mg Capsule 1 cap PO DIRECTED PRN (Reason: COLD/CONGESTION SYMPTOMS) [place] Plus Sinus-Cough 5-10-325 mg Capsule 1 cap PO DIRECTED PRN (Reason: COLD/CONGESTION SYMPTOMS) Women's 50 Plus Multivitamin 400 mcg-500 mg calcium-20 mcg Tablet 1 tab PO DAILY loratadine 10 mg Tablet 10 mg PO DAILY PRN (Reason: Allergy Symptoms) escitalopram oxalate 10 mg tablet 10 mg PO QPM melatonin 10 mg Tablet 10 mg PO HS PRN (Reason: Insomnia) magnesium oxide 400 mg magnesium tablet 400 mg PO DAILY Qty: 30 0RF Changed olanzapine [Zyprexa] 2.5 mg Tablet 2.5 mg PO BID PRN (Reason: Anxiety) Qty: 60 0RF Rx Instructions: Son can not remember mg. Discontinued lisinopril 5 mg tablet 5 mg PO QAM Discharge Orders: Discharge Order (Routine); Ordered 05/25/22 Ordered By: Kolby Leyva Admission Data Admit Date/Time: 05/17/22 17:30 Attending Provider: Kolby Leyva Admit Provider: Kolby Leyva Primary Care Provider: Jeff Good Other Providers: Kolby Leyva ; Luz Hfuf ; Rupa Choi ; Belle Pierce ; Olga Messina Other Interventions: Discharge Summary Assessment (RN) Last Done: 05/25/22 09:35
[2022-05-25] MEDS: NYSTATIN SUSP 500,000 U/5 ML UDC PO SCH (09:41)
[2022-05-25] MEDS: OLANZapine ZYDIS 5 MG ORALLY DIS. TAB PO SCH (09:44)
[2022-05-25] MEDS: HEPARIN SOD 5,000 UNIT/0.5 ML VIAL SQ SCH (09:46)
[2022-05-25 11:51] LABS: BUN Creatinine Ratio 13.2 (10-20); Calcium 9.9 mg/dl (8.5-10.1); Creatinine Clr Calc Pharmacy 22.2 ml/min; Est GFR (African American) 39.9 ml/min; Est GFR (Non-African American) 34.4 ml/min; Magnesium 1.9 mg/dl (1.7-2.4); Potassium 4.2 mmol/L (3.5-5.1)
== END 2022-05-25 12:34 | disposition hospice, home (50) | DRG 683 ==
LOC: ED 15:15 → SUATTDRO 17:30 → 2N 17:30
DX: N39.0 Urinary tract infection, site not specified; F03.91 Unspecified dementia, unspecified severity, with behavioral disturbance; Z88.5 Allergy status to narcotic agent; D35.00 Benign neoplasm of unspecified adrenal gland; E03.9 Hypothyroidism, unspecified; Z51.5 Encounter for palliative care; I12.9 Hypertensive chronic kidney disease with stage 1 through stage 4 chronic kidney disease, or unspecified chronic kidney disease; I44.0 Atrioventricular block, first degree; Z79.890 Hormone replacement therapy; Z88.1 Allergy status to other antibiotic agents; N18.30 Chronic kidney disease, stage 3 unspecified; E86.0 Dehydration; N17.9 Acute kidney failure, unspecified; Z66 Do not resuscitate